=== PATIENT | female | born 1955 | race Caucasian/White ===

== ENCOUNTER 2017-01-31 11:15 | Inpatient (IN) ==
[2017-01-31 11:54] LABS: Mean Corpuscular Hemoglobin 27.8 pg (28.0-33.3); Mean Corpuscular Volume 85.2 fL (83.0-100.0); Red Cell Distribution Width 14.6 % (11.5-14.5)
[2017-01-31 11:58] LABS: Basophils % 1.1 %; Eosinophils % 2.2 %; Hematocrit 36.8 % (35.3-44.9); Immature Platelets 7.6 % (1.1-6.1); Lymphocytes # 0.5 K/mcL (0.6-4.6); Lymphocytes % 26.2 %; Mean Corpuscular HGB Conc 32.6 g/dL (31.6-35.5); Mean Platelet Volume 11.1 fL (9.4-12.4); Monocytes # 0.2 K/mcL (0.0-1.3); Monocytes % 8.7 %; Neutrophils # 1.1 K/mcL (1.6-8.9); Red Blood Count 4.32 M/mcL (3.82-4.97); Segmented Neutrophils % 61.8 %
--- NOTE | 2017-01-31 11:59 | Emergency Department Note ---
Disposition Clinical Impression: Stable angina Disposition: Admitted As Inpatient Chest Pain HPI - General Chief Complaint: ED Chest Pain Stated Complaint: chest tightness / pain JANEY Time Seen by Provider: 01/31/17 11:20 Source: patient Limitations: no limitations Vital Signs Reviewed: Yes Nursing Notes Reviewed: Yes - History of Present Illness Pt complaint: chest pain Onset (ago): day(s) (1) Duration: intermittent Onset: during rest Pain Location: substernal Severity scale (1-10): 7 Quality: heaviness Pain Radiation: none Improves with: nitroglycerin Worsens with: nothing Associated symptoms: Reports: leg swelling. Denies: nausea, vomiting, diaphoresis, dyspnea Treatments prior to arrival chest pain: nitroglycerin - Related Data Home Medications Medication Instructions Recorded Confirmed Amitriptyline [Elavil] 10 mg PO HS 12/31/15 01/31/17 Furosemide [Lasix] 20 mg PO DAILY PRN 12/31/15 01/31/17 LORazepam [Ativan] 0.5 mg PO DAILY PRN 12/31/15 01/31/17 Lactulose 30 ml PO DAILY PRN 12/31/15 01/31/17 Lisinopril-HCTZ 20-12.5 [Prinzide 0.5 tab PO BID 12/31/15 01/31/17 20-12.5] Loratadine [Claritin] 10 mg PO DAILY 12/31/15 01/31/17 Metformin [Glucophage] 1,000 mg PO BIDWM 12/31/15 01/31/17 Metoprolol [Lopressor] 12.5 mg PO BID 12/31/15 01/31/17 Nitroglycerin [Nitrostat] 0.4 mg SL AD PRN 12/31/15 01/31/17 Omeprazole [PriLOSEC] 40 mg PO DAILY 12/31/15 01/31/17 Ranitidine HCl [Zantac] 150 mg PO HS 12/31/15 01/31/17 TraMADol [Ultram] 50 mg PO Q6HR PRN 12/31/15 01/31/17 Rosuvastatin Calcium [Crestor] 20 mg PO DAILY 09/11/16 01/31/17 Albuterol Sulfate [Ventolin Hfa] 2 puff IH Q4H PRN 01/31/17 01/31/17 Aspirin 81 mg PO DAILY 01/31/17 01/31/17 Fluticasone Propionate Nasal 1 spray NS DAILY 01/31/17 01/31/17 [Flonase] Fluticasone/Vilanterol [Breo 1 puff IH DAILY 01/31/17 01/31/17 Ellipta 100-25 Mcg INH] Gabapentin [Neurontin] 100 mg PO BID 01/31/17 01/31/17 Insulin ASPART [Novolog] 0 unit SQ DAILY MDD PER INSULIN 01/31/17 01/31/17 PUMP Ipratropium/Albuterol Neb [Duoneb] 3 ml IH Q6HR 01/31/17 01/31/17 Meclizine HCl [Verticalm] 25 mg PO DAILY PRN 01/31/17 01/31/17 Melatonin 9 mg PO HS 01/31/17 01/31/17 Multivitamin [One Daily Essential] 1 tab PO DAILY 01/31/17 01/31/17 Ranolazine [Ranexa] 500 mg PO BID 01/31/17 01/31/17 Previous Rx's Medication Instructions Recorded Isosorbide MONOnitrate (24 HR) 60 mg PO DAILY #30 tab.er.24h 09/12/16 [Imdur] Allergies Allergy/AdvReac Type Severity Reaction Status Date / Time atorvastatin [From Lipitor] Allergy Muscle Pain Verified 09/11/16 12:22 Hydroxychloroquine Allergy Hives Verified 09/11/16 12:22 [From Plaquenil] escitalopram [From Lexapro] AdvReac See Verified 09/11/16 12:22 Comments All systems ED: reviewed and negative except as stated. Constitutional: Denies: fever, chills, weakness Respiratory: Denies: dyspnea, wheezes Gastrointestinal: Denies: nausea, vomiting Chest Pain PMH - Past Medical History Medical history: Reports: coronary artery disease, diabetes, fibromyalgia, GERD , hyperlipidemia, hypertension, liver disease, myocardial infarction, other Surgical history: Reports: hysterectomy, other Psychiatric history: Reports: anxiety - Social History Smoking Status: Never smoker Alcohol use: Reports: none Drug use: Reports: none Physical Exam - General Limitations: no limitations General appearance: alert - Head Head exam: atraumatic, normocephalic, normal inspection - Eye Eye exam: Present: normal appearance, PERRL, EOMI - Expanded Eye Exam Pupils: Left: reactive - ENT ENT exam: normal exam, normal oropharynx, mucous membranes moist - Expanded ENT Exam External ear exam: Present: normal external inspection Mouth exam: Present: normal external inspection Teeth exam: Present: normal inspection Throat exam: Present: normal inspection - Neck Neck exam: Present: normal inspection, full ROM, trachea midline - Chest Chest inspection: Present: normal inspection, symmetric chest wall rise - Respiratory Respiratory exam: Present: normal lung sounds bilaterally - Cardiovascular Cardiovascular exam: Present: regular rate, normal rhythm, normal heart sounds - Abdominal Exam Abdominal exam: Present: soft, Non-Tender. Absent: tenderness, distention, guarding, rebound, rigidity - Extremities Exam Extremities exam: Present: normal inspection, full ROM. Absent: tenderness, pedal edema - Expanded Upper Extremity Exam Shoulder exam: Present: normal inspection, full ROM Arm exam: Present: normal inspection, full ROM Elbow exam: Present: normal inspection, full ROM Forearm/Wrist exam: Present: normal inspection, full ROM Hand exam: Present: normal inspection, full ROM Vascular exam: Normal: capillary refill, radial pulse - Expanded Lower Extremity Exam Hip/Pelvis exam: Present: normal inspection, full ROM Upper leg exam: Present: normal inspection, full ROM Knee exam: Present: normal inspection, full ROM Lower leg exam: Present: normal inspection, full ROM Ankle exam: Present: normal inspection, full ROM Foot/toe exam: Present: normal inspection, full ROM Neurovascular/Tendon exam: Absent: motor deficit, sensory deficit, tendon deficit - Back Exam Back exam: Present: normal inspection, full ROM. Absent: tenderness - Neurological Exam Neurological exam: Present: alert, oriented X3 - Expanded Neurological Exam Patient oriented to: Present: person, place, time Coma Scale Eye Opening: Spontaneous Coma Scale Motor Response: Obeys Commands Coma Scale Verbal Response: Oriented Coma Scale Total: 15 - Psychiatric Psychiatric exam: Present: normal affect, normal mood - Skin Skin exam: Present: warm, dry, intact, normal color Course Vital Signs Temperature 98.1 F 01/31/17 11:20 Pulse Rate 85 01/31/17 11:20 Respiratory Rate 18 01/31/17 11:20 Blood Pressure 152/71 01/31/17 11:20 O2 Sat by Pulse Oximetry 97 01/31/17 11:20 Temperature 97.9 F 01/31/17 16:27 Pulse Rate 86 01/31/17 16:27 Respiratory Rate 16 01/31/17 16:27 Blood Pressure 126/79 01/31/17 16:27 O2 Sat by Pulse Oximetry 96 01/31/17 16:27 Chest Pain - Differential Diagnosis Likely: pneumothorax, unstable angina pectoris, atypical chest pain, st elevation myocardial infraction, chest pain - Medical Records Medical records reviewed: Yes I reviewed the patient's medical records. - Lab Data Result diagrams: 01/31/17 11:37 01/31/17 11:37 Lab Results 01/31/17 01/31/17 01/31/17 Range/Units 11:37 11:37 11:37 WBC 1.8 L (4.3-11.1) K/mcL RBC 4.32 (3.82-4.97) M/mcL Hgb 12.0 (11.5-15.4) g/dL Hct 36.8 (35.3-44.9) % MCV 85.2 (83.0-100.0) fL MCH 27.8 L (28.0-33.3) pg MCHC 32.6 (31.6-35.5) g/dL RDW 14.6 H (11.5-14.5) % Plt Count 47 L (140-400) K/mcL MPV 11.1 (9.4-12.4) fL Immature Gran % 0.0 (0-4) % Seg Neutrophils % 61.8 % Lymphocytes % 26.2 % Monocytes % 8.7 % Eosinophils % 2.2 % Basophils % 1.1 % Neutrophils # 1.1 L (1.6-8.9) K/mcL Lymphocytes # 0.5 L (0.6-4.6) K/mcL Monocytes # 0.2 (0.0-1.3) K/mcL Eosinophils # 0.0 (0.0-0.6) K/mcL Basophils # 0.0 (0.0-0.2) K/mcL Platelet Estimate Decreased L (Normal) Immature Plt Fraction 7.6 H (1.1-6.1) % Polychromasia 1+ A (Not Present) PT 13.3 H (9.4-12.1) Seconds INR 1.2 APTT 33.2 (26.0-36.0) Seconds Sodium 139 (136-145) mEq/L Potassium 4.0 (3.5-4.5) mEq/L Chloride 106 (98-109) mEq/L Carbon Dioxide 25 (19-29) mEq/L BUN 15 (7-20) mg/dL Creatinine 0.74 (0.57-1.11) mg/dL Est GFR ( Amer) > 60 (> 60) Est GFR (Non-Af Amer) > 60 (> 60) BUN/Creatinine Ratio 20 (6-26) Glucose 198 H (70-99) mg/dL Calculated Osmolality 294 (280-300) Calcium 9.0 (8.6-10.8) mg/dL Total Bilirubin 1.0 (0.2-1.2) mg/dL Direct Bilirubin 0.4 (0.0-0.5) mg/dL Indirect Bilirubin 0.6 (0.0-1.2) mg/dL AST 32 (5-34) Units/L ALT 23 (0-55) Units/L Alkaline Phosphatase 108 (38-126) Units/L Troponin I (0-0.03) ng/mL Serum Total Protein 6.5 (6.0-8.3) g/dL Albumin 3.1 L (3.5-5.0) g/dL Globulin 3.4 (2.4-3.5) g/dL Albumin/Globulin Ratio 0.9 L (1.1-2.2) Lipase 45 (8-78) Units/L 04/24/17 Range/Units 11:37 WBC (4.3-11.1) K/mcL RBC (3.82-4.97) M/mcL Hgb (11.5-15.4) g/dL Hct (35.3-44.9) % MCV (83.0-100.0) fL MCH (28.0-33.3) pg MCHC (31.6-35.5) g/dL RDW (11.5-14.5) % Plt Count (140-400) K/mcL MPV (9.4-12.4) fL Immature Gran % (0-4) % Seg Neutrophils % % Lymphocytes % % Monocytes % % Eosinophils % % Basophils % % Neutrophils # (1.6-8.9) K/mcL Lymphocytes # (0.6-4.6) K/mcL Monocytes # (0.0-1.3) K/mcL Eosinophils # (0.0-0.6) K/mcL Basophils # (0.0-0.2) K/mcL Platelet Estimate (Normal) Immature Plt Fraction (1.1-6.1) % Polychromasia (Not Present) PT (9.4-12.1) Seconds INR APTT (26.0-36.0) Seconds Sodium (136-145) mEq/L Potassium (3.5-4.5) mEq/L Chloride (98-109) mEq/L Carbon Dioxide (19-29) mEq/L BUN (7-20) mg/dL Creatinine (0.57-1.11) mg/dL Est GFR ( Amer) (> 60) Est GFR (Non-Af Amer) (> 60) BUN/Creatinine Ratio (6-26) Glucose (70-99) mg/dL Calculated Osmolality (280-300) Calcium (8.6-10.8) mg/dL Total Bilirubin (0.2-1.2) mg/dL Direct Bilirubin (0.0-0.5) mg/dL Indirect Bilirubin (0.0-1.2) mg/dL AST (5-34) Units/L ALT (0-55) Units/L Alkaline Phosphatase (38-126) Units/L Troponin I 0.00 (0-0.03) ng/mL Serum Total Protein (6.0-8.3) g/dL Albumin (3.5-5.0) g/dL Globulin (2.4-3.5) g/dL Albumin/Globulin Ratio (1.1-2.2) Lipase (8-78) Units/L
[2017-01-31 12:00] LABS: Platelet Count 47 K/mcL (140-400)
[2017-01-31 12:05] LABS: INR 1.2; Prothrombin Time 13.3 Seconds (9.4-12.1)
[2017-01-31 12:08] LABS: Activated Partial Thrombo Time 33.2 Seconds (26.0-36.0)
[2017-01-31 12:11] LABS: Alanine Aminotransferase 23 Units/L (0-55); Albumin 3.1 g/dL (3.5-5.0); Albumin/Globulin Ratio 0.9 (1.1-2.2); Alkaline Phosphatase 108 Units/L (38-126); Aspartate Amino Transferase 32 Units/L (5-34); BUN/Creatinine Ratio 20 (6-26); Bilirubin,Direct 0.4 mg/dL (0.0-0.5); Bilirubin,Indirect 0.6 mg/dL (0.0-1.2); Blood Urea Nitrogen 15 mg/dL (7-20); Carbon Dioxide 25 mEq/L (19-29); Chloride 106 mEq/L (98-109); Globulin 3.4 g/dL (2.4-3.5); Glucose 198 mg/dL (70-99); Lipase 45 Units/L (8-78); Osmolality,Calculated 294 (280-300); Sodium 139 mEq/L (136-145); Total Protein 6.5 g/dL (6.0-8.3); eGFR For African Americans > 60 (> 60); eGFR For Non-African Americans > 60 (> 60)
[2017-01-31 12:22] LABS: Platelet Estimate Decreased (Normal)
[2017-01-31 12:23] LABS: Polychromasia 1+ (Not Present)
[2017-01-31] MEDS ORDERED: Aspirin 81 MG TAB.CHEW PO STA (12:49)
[2017-01-31] MEDS ORDERED: Naloxone 0.4 MG/ML INJ IVP PRN (14:02)
[2017-01-31] MEDS ORDERED: Nitroglycerin 0.4 MG TAB.SUBL SL PRN (14:38)
--- NOTE | 2017-01-31 14:58 | Internal Med History&Physical ---
Date of Encounter: 01/31/17 Time of Encounter: 13:30 Assessment and Plan (1) Stable angina Current visit: Yes Status: Acute 1 patient is experiencing intermittent chest pain relieved with nitroglycerin. Has past history of CAD with stent placement. For secondary troponins are negative we will continue cycle 2 we will obtain cardiac echo 3 continues cardiac monitoring 4 continue with aspirin beta erwin statin 5 nitroglycerin oxygen as needed 6 we will consult cardiology (2) SIMON (nonalcoholic steatohepatitis) Current visit: Yes Status: Chronic 1 patient has been experiencing increase in weight, abdominal distention as well as edema. Presently liver enzymes are stable patient has chronic neutropenia and thrombocytopenia INR 1.2-noted slight fluid wave on assessment we will monitor intake output daily weight 2 we will obtain liver ultrasound 3 obtain ammonia level 4 continue with Lasix will increase Lasix to 40 mg 5 patient has been experiencing some black stools will obtain stool for occult (3) Neutropenia Current visit: No Status: Chronic 1 this appears to be chronic will continue to monitor signs and symptoms of infection Qualifiers: Neutropenia type: unspecified Qualified Code(s): D70.9 - Neutropenia, unspecified (4) Thrombocytopenia Current visit: No Status: Chronic 1 this appears to be chronic will monitor for signs and symptoms of bleeding-no anticoagulation (5) T2DM (type 2 diabetes mellitus) Current visit: No Status: Chronic 1 Accu-Cheks before meals and at bedtime patient is on insulin pump will continue 2 diabetic diet Qualifiers: Diabetes mellitus complication status: without complication 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 Qualified Code(s): E11.9 - Type 2 diabetes mellitus without complications; Z79.4 - shelter (current) use of insulin (6) Hypertension Current visit: No Status: Chronic 1 presently controlled we will continue with home medications and also maintain systolic less than 140 Qualifiers: Hypertension type: essential hypertension Qualified Code(s): I10 - Essential (primary) hypertension (7) Obstructive sleep apnea Current visit: Yes Status: Chronic 1 continue with CPAP (8) DVT prophylaxis Current visit: Yes Status: Chronic 1 SCDs Internal Medicine - H&P: HPI Chief complaint: CP Admitted From: Emergency Dept Plans for Post Hospital Care: Home History of present illness: Ms. Morgan is a 61 year old female past uncle history of coronary artery disease with stent placed LAD 2012 diabetes on insulin pump fibro-myalgia GERD hypertensionobstructive sleep apnea, asthma SIMON esophageal varices. According to the patient partially 3 days ago she was awakened from sleep experiencing palpitations shortness of breath palpitations resolved on their own however she continued to experience intermittent chest pain over the next 3 days. Chest pain is described as dull nonradiating there are no aggravating factors and some relief with nitroglycerin. Associated symptoms include shortness of breath as well as nausea This a.m. patient awoke began to experience chest pain she did take a nitroglycerin which did relieve her pain however she continues to experience chest heaviness she reported to the ER for evaluation. ER records lab work revealed troponin of 0 leukopenia as well as thrombocytopenia rest of lab work is unremarkable. Chest x-ray revealed low lung volumes EKG with sinus rhythm nonspecific T-wave changes. She is admitted for further workup and evaluation. Presently patient denies any chest pain she does not appear to be any respiratory distress. She does admit to some weight gain particular her abdomen as well as shortness of breath,fatigue. Upon assessment abdomen is soft distended slight fluid wave, +1 edema to lower extremities bilaterally. Patient also admitted to occasional black stool no hematemesis or hematochezia. Heart sounds with S1-S2 no murmur or clicks gallops noted lungs sounds clear she is hemodynamically stable at this time review this case with Dr. Garcia who agrees with plan. Past Med Surg Social Fam HX - Past Medical History Medical history: coronary artery disease, diabetes, fibromyalgia, GERD, hyperlipidemia, hypertension, liver disease, myocardial infarction, other Psychiatric history: anxiety - Past Surgical History Surgical History: hysterectomy, other - Social History Smoking Status: Never smoker Smokeless Tobacco Status: No Alcohol use: none Drug use: none - Family History Mother Living Status: Hx Family Cardiac Disorders: Yes (CAD) Hx Family Respiratory Disorders: Yes (Interstitial lining disease) Father Living Status: Hx Family Cardiac Disorders: Yes (IA) Internal Medicine - H&P: Meds Amitriptyline [Elavil] 10 mg PO HS 12/31/15 [History] Furosemide [Lasix] 20 mg PO DAILY PRN 12/31/15 [History] LORazepam [Ativan] 0.5 mg PO DAILY PRN 12/31/15 [History] Lactulose 30 ml PO DAILY PRN 12/31/15 [History] Lisinopril-HCTZ 20-12.5 [Prinzide 20-12.5] 0.5 tab PO BID 12/31/15 [History] Loratadine [Claritin] 10 mg PO DAILY 12/31/15 [History] Metformin [Glucophage] 1,000 mg PO BIDWM 12/31/15 [History] Metoprolol [Lopressor] 12.5 mg PO BID 12/31/15 [History] Nitroglycerin [Nitrostat] 0.4 mg SL AD PRN 12/31/15 [History] Omeprazole [PriLOSEC] 40 mg PO DAILY 12/31/15 [History] Ranitidine HCl [Zantac] 150 mg PO HS 12/31/15 [History] TraMADol [Ultram] 50 mg PO Q6HR PRN 12/31/15 [History] Rosuvastatin Calcium [Crestor] 20 mg PO DAILY 09/11/16 [History] Isosorbide MONOnitrate (24 HR) [Imdur] 60 mg PO DAILY #30 tab.er.24h 09/12/16 [ Rx] Albuterol Sulfate [Ventolin Hfa] 2 puff IH Q4H PRN 01/31/17 [History] Aspirin 81 mg PO DAILY 01/31/17 [History] Fluticasone Propionate Nasal [Flonase] 1 spray NS DAILY 01/31/17 [History] Fluticasone/Vilanterol [Breo Ellipta 100-25 Mcg INH] 1 puff IH DAILY 01/31/17 [ History] Gabapentin [Neurontin] 100 mg PO BID 01/31/17 [History] Insulin ASPART [Novolog] 0 unit SQ DAILY MDD PER INSULIN PUMP 01/31/17 [History] Ipratropium/Albuterol Neb [Duoneb] 3 ml IH Q6HR 01/31/17 [History] Meclizine HCl [Verticalm] 25 mg PO DAILY PRN 01/31/17 [History] Melatonin 9 mg PO HS 01/31/17 [History] Multivitamin [One Daily Essential] 1 tab PO DAILY 01/31/17 [History] Ranolazine [Ranexa] 500 mg PO BID 01/31/17 [History] Allergies atorvastatin [From Lipitor] Allergy (Verified 09/11/16 12:22) Muscle Pain Hydroxychloroquine [From Plaquenil] Allergy (Verified 09/11/16 12:22) Hives escitalopram [From Lexapro] Adverse Reaction (Verified 09/11/16 12:22) See Comments Patient states it didn't work. All Systems PM: A 10-system review of systems was performed and is negative for pertinent findings except as documented above in the HPI. - Constitutional Constitutional: fatigue, weight gain - Cardiovascular Cardiovascular ROS IM: chest pain, dyspnea, edema, palpitations - Respiratory Respiratory: dyspnea - Gastrointestinal Gastrointestinal: bloating, change in bowel habits, melena, nausea - Genitourinary Genitourinary: dysuria - Neurological Neurological ROS: no confusion, no convulsions, no focal weakness, no numbness, no tingling, no tremor(s) - Constitutional Vitals: Temp Pulse Resp BP Pulse Ox 98.1 F 68 18 158/83 96 01/31/17 11:20 01/31/17 14:13 01/31/17 14:13 01/31/17 14:13 01/31/17 14:13 General appearance: Present: A&O X 3, morbidly obese, answers questions appropriately - Head Head exam: Present: atraumatic, normocephalic - Eye Eye exam: Present: PERRL, conjuntiva pink, sclera anicteric Pupils: Present: PERRL - Neck Neck exam general surgery: Present: supple, trachea midline. Absent: lymphadenopathy - Respiratory Respiratory exam: Present: CTAB. Absent: accessory muscle use, rales, rhonchi, wheezes - Cardiovascular Cardiovascular exam: Present: RRR, +S1, +S2. Absent: diastolic murmur, gallop, rubs, systolic murmur - GI/Abdominal GI/Abdominal exam: Present: distended, normal bowel sounds, soft, no peritoneal signs. Absent: tenderness - Extremities Exam Extremities exam: Present: pedal edema, warm, radial pulses palpable and symetrical. Absent: calf tenderness, cyanotic - Neurological Exam Neurological exam: Present: CN II-XII intact, oriented X3, no focal deficits. Absent: pronater drift, facial droop, speech deficit - Skin Skin exam: Present: dry, intact Internal Med - H&P Results - Labs CBC & Chem 7: 01/31/17 11:37 01/31/17 11:37 Labs: Short CBC 01/31/17 Range/Units 11:37 WBC 1.8 L (4.3-11.1) K/mcL Hgb 12.0 (11.5-15.4) g/dL Hct 36.8 (35.3-44.9) % Plt Count 47 L (140-400) K/mcL Neutrophils # 1.1 L (1.6-8.9) K/mcL BMP 01/31/17 11:37 Sodium 139 Potassium 4.0 Chloride 106 Carbon Dioxide 25 BUN 15 Creatinine 0.74 Glucose 198 H Calcium 9.0 Cardiac Enzymes 01/31/17 Range/Units 11:37 Troponin I 0.00 (0-0.03) ng/mL Liver Function 01/31/17 Range/Units 11:37 Total Bilirubin 1.0 (0.2-1.2) mg/dL Direct Bilirubin 0.4 (0.0-0.5) mg/dL AST 32 (5-34) Units/L ALT 23 (0-55) Units/L Alkaline Phosphatase 108 (38-126) Units/L Albumin 3.1 L (3.5-5.0) g/dL - EKG Data EKG shows normal: sinus rhythm - EKG Data Prior EKG available for review: yes When compared to previous EKG: there is no significant change - Impressions ITS Impressions Chest X-Ray 01/31/17 11:26 IMPRESSION: 1. Low lung volumes. D/ / Sukumar Maza MD / Sukumar Maza MD Interpreting Provider: Sukumar Maza MD - Diagnostic Studies Other Images Additional comments: Chest X-Ray 01/31/17 11:26 IMPRESSION: 1. Low lung volumes. D/ / Sukumar Maza MD / Sukumar Maaz MD Interpreting Provider: Sukumar Maza MD
--- NOTE | 2017-01-31 14:59 | Event Note ---
Date of Encounter: 01/31/17 Time of Encounter: 14:54 Patient seen and examined with nurse practitioner. Agree with assessment and plan. Patient with known history of coronary artery disease last in March 2016 showed instent restenosis about 30 to 40% except for the PDA stent which showed significant instent restenosis but was a small vessel so was managed conservatively. She presents today with chest pain. EKG shows no ischemic changes. initial troponin normal. check serial cardiac markers. Patient also has a history of Connel[place]. She has leukopenia and thrombocytopenia platelets in the 40,000 range. Continual antischemic medications. Cardiology consultation. Continuous telemetry monitoring. She notices abdominal dissension, shortness of breath. Suspect she may have some ascites contributing to her weight gain and shortness of breath. Lasix will be increased from 20 mg to 40 mg daily. Abdominal ultrasound will be checked. Notices that she is more tired and lethargic. Ammonia level will be checked. No evidence of infectious etiology. She is full code.
[2017-01-31] MEDS ORDERED: *HR* Dextrose 50 % in Water (Syg) 50 ML SYRINGE IVP PRN (15:15)
[2017-01-31] MEDS ORDERED: D5% in Water 1,000 ML IVC PRN (15:15)
[2017-01-31] MEDS ORDERED: Dextrose Gel 15 GM PO PRN ×2 (15:15)
[2017-01-31] MEDS ORDERED: *HR* Metformin 500 MG TABLET PO SCH (17:00)
[2017-01-31] MEDS ORDERED: Ipratropium/Albuterol Neb 3 ML IH SCH (18:00)
[2017-01-31] MEDS: Ipratropium/Albuterol Neb 3 ML IH SCH ×2 (18:26→22:12)
[2017-01-31] MEDS ORDERED: NON-FORMULARY MEDICATION 1 EACH EACH (Ranitidine Hcl [Zantac] 150 MG) PO SCH (21:00)
[2017-01-31] MEDS: Gabapentin 100 MG CAPSULE PO SCH (22:37)
[2017-01-31] MEDS: Melatonin 3 MG TABLET PO SCH (22:38)
[2017-01-31] MEDS: Lisinopril-HCTZ 20-12.5mg TABLET PO SCH (22:38)
[2017-01-31] MEDS: Ranolazine 500 MG TAB.ER.12H PO SCH (22:40)
[2017-01-31] MEDS: traMADol 50 MG TABLET PO PRN (22:40)
[2017-02-01] MEDS: Insulin LISPRO 300 UNITS/3 ML VIAL SQ SCH ×4 (00:53→17:42)
[2017-02-01] MEDS ORDERED: Lactulose Oral Soln 20 GM/30 ML UDC PO PRN (01:39)
[2017-02-01 02:02] LABS: Basophils % 0.6 %; Red Cell Distribution Width 14.8 % (11.5-14.5)
[2017-02-01 02:04] LABS: Eosinophils % 1.2 %; Hematocrit 31.5 % (35.3-44.9); Hemoglobin 10.2 g/dL (11.5-15.4); Lymphocytes % 26.5 %; Mean Corpuscular HGB Conc 32.4 g/dL (31.6-35.5); Mean Corpuscular Hemoglobin 27.9 pg (28.0-33.3); Mean Corpuscular Volume 86.3 fL (83.0-100.0); Mean Platelet Volume 11.6 fL (9.4-12.4); Monocytes # 0.1 K/mcL (0.0-1.3); Monocytes % 8.4 %; Neutrophils # 1.1 K/mcL (1.6-8.9); Red Blood Count 3.65 M/mcL (3.82-4.97); Segmented Neutrophils % 63.3 %
[2017-02-01 02:23] LABS: BUN/Creatinine Ratio 20 (6-26); Blood Urea Nitrogen 15 mg/dL (7-20); Calcium 8.7 mg/dL (8.6-10.8); Carbon Dioxide 25 mEq/L (19-29); Chloride 103 mEq/L (98-109); Cholesterol 125 mg/dL (< 200); Glucose 292 mg/dL (70-99); HDL Cholesterol 42 mg/dL (40-59); LDL Cholesterol,Calculated 52 mg/dL (0-99); Osmolality,Calculated 294 (280-300); Potassium 3.6 mEq/L (3.5-4.5); Sodium 136 mEq/L (136-145); Triglycerides 155 mg/dL (< 150); eGFR For African Americans > 60 (> 60); eGFR For Non-African Americans > 60 (> 60)
[2017-02-01 02:37] LABS: Lymphocytes # 0.5 K/mcL (0.6-4.6); Platelet Count 41 K/mcL (140-400)
[2017-02-01 02:39] LABS: Platelet Estimate Decreased (Normal)
[2017-02-01] MEDS ORDERED: Ondansetron 4 MG/2 ML VIAL IVP ONE (03:48)
[2017-02-01] MEDS: Ipratropium/Albuterol Neb 3 ML IH SCH ×4 (04:28→21:41)
--- NOTE | 2017-02-01 08:35 | Cardiology Consult Note ---
Date of Encounter: 02/01/17 Time of Encounter: 08:20 Assessment and Plan (1) Chest pain Current Visit: No Status: Acute Troponins negative 3. EKG shows normal sinus rhythm with no acute ST changes. [facility] 03/31/2016-EF 50%, severe small vessel disease. There was a 40% in-stent restenosis in the mid LAD, 30% stenosis in the proximal circumflex artery, 30% stenosis in the mid RCA, and 80% stenosis in the PDA (small vessel.) TTE 03/24/2016-EF 65%, moderate diastolic dysfunction, and no significant valvular disease. TTE 09/2016- EF 65%, Mild LVH, No significant valvular disease. Repeat echo pending. Recommend pharmacologic stress test for further evaluation. Titrate anti- anginal medication. Continue asa, statin, bb, and imdur and Ranexa. Patient noted to have thrombocytopenia. Plt 40,000 range but stable. Continue asa. Qualifiers: Chest pain type: unspecified Qualified Code(s): R07.9 - Chest pain, unspecified (2) CAD (coronary artery disease) Current Visit: No Status: Chronic See plan above. Qualifiers: Coronary Disease-Associated Artery/Lesion type: [place] artery [place] vs. transplanted heart: [place] heart Associated angina: with stable angina Qualified Code(s): I25.118 - Atherosclerotic heart disease of [place] coronary artery with other forms of angina pectoris Discussion w patient/family: The assessment and plan as outlined above was discussed with the patient and/or family members who expressed understanding and agreement. All questions were answered. Thank you for involving us in the care of your patient. Please call with any questions. History of Present Illness Consult date: 02/01/17 Requesting physician: Alejandro Garcia Consult reason: Chest pain Chief complaint: Chest pain, palpitations, and SOB History of present illness: Ms. Morgan is a 61 year old female with a history of CAD status post previous PCI in 2013, known severe small vessel disease, and SIMON with bicytopenia, hypertension, hyperlipidemia, and diabetes type 2 who presents with chest pain. She complains of chest pain starting day night that occured with activity. The next day she experienced frequent palpitations followed by chest pain requiring NTG. She continued to have intermittent chest pain with exertion associated with nausea and SOB. She reports not taking NTG since last year. Cardiac workup includes chest x-ray showing no acute disease, troponins negative 2, and EKG shows no acute changes. Cardiology consult for further evaluation. Recent cardiac testing: [facility] 03/31/2016-EF 50%, severe small vessel disease. There was a 40% in-stent restenosis in the mid LAD, 30% stenosis in the proximal circumflex artery, 30% stenosis in the mid RCA, and 80% stenosis in the PDA (small vessel.) TTE 03/24/2016-EF 65%, moderate diastolic dysfunction, and no significant valvular disease. TTE 09/2016- EF 65%, mild LVH, no significant valvular disease. Past Med Surg Social Fam HX - Past Medical History Medical history: coronary artery disease, diabetes, fibromyalgia, GERD, hyperlipidemia, hypertension, liver disease, myocardial infarction, other Psychiatric history: anxiety - Past Surgical History Surgical History: hysterectomy, other - Social History Smoking Status: Never smoker Smokeless Tobacco Status: No Alcohol use: none Drug use: none - Family History Mother Name: Cielo Navarrete Living Status: Age at : 69 Cause of : lung disease Hx Family Cardiac Disorders: Yes (CAD) Hx Family Respiratory Disorders: Yes Father Name: Sg Brantley Living Status: Age at : 42 Cause of : PA Hx Family Cardiac Disorders: Yes Medications and Allergies Amitriptyline [Elavil] 10 mg PO HS 12/31/15 [History] Furosemide [Lasix] 20 mg PO DAILY PRN 12/31/15 [History] LORazepam [Ativan] 0.5 mg PO DAILY PRN 12/31/15 [History] Lactulose 30 ml PO DAILY PRN 12/31/15 [History] Lisinopril-HCTZ 20-12.5 [Prinzide 20-12.5] 0.5 tab PO BID 12/31/15 [History] Loratadine [Claritin] 10 mg PO DAILY 12/31/15 [History] Metformin [Glucophage] 1,000 mg PO BIDWM 12/31/15 [History] Metoprolol [Lopressor] 12.5 mg PO BID 12/31/15 [History] Nitroglycerin [Nitrostat] 0.4 mg SL AD PRN 12/31/15 [History] Omeprazole [PriLOSEC] 40 mg PO DAILY 12/31/15 [History] Ranitidine HCl [Zantac] 150 mg PO HS 12/31/15 [History] TraMADol [Ultram] 50 mg PO Q6HR PRN 12/31/15 [History] Rosuvastatin Calcium [Crestor] 20 mg PO DAILY 09/11/16 [History] Isosorbide MONOnitrate (24 HR) [Imdur] 60 mg PO DAILY #30 tab.er.24h 09/12/16 [ Rx] Albuterol Sulfate [Ventolin Hfa] 2 puff IH Q4H PRN 01/31/17 [History] Aspirin 81 mg PO DAILY 01/31/17 [History] Fluticasone Propionate Nasal [Flonase] 1 spray NS DAILY 01/31/17 [History] Fluticasone/Vilanterol [Breo Ellipta 100-25 Mcg INH] 1 puff IH DAILY 01/31/17 [ History] Gabapentin [Neurontin] 100 mg PO BID 01/31/17 [History] Insulin ASPART [Novolog] 0 unit SQ DAILY MDD PER INSULIN PUMP 01/31/17 [History] Ipratropium/Albuterol Neb [Duoneb] 3 ml IH Q6HR 01/31/17 [History] Meclizine HCl [Verticalm] 25 mg PO DAILY PRN 01/31/17 [History] Melatonin 9 mg PO HS 01/31/17 [History] Multivitamin [One Daily Essential] 1 tab PO DAILY 01/31/17 [History] Ranolazine [Ranexa] 500 mg PO BID 01/31/17 [History] Allergies atorvastatin [From Lipitor] Allergy (Verified 09/11/16 12:22) Muscle Pain Hydroxychloroquine [From Plaquenil] Allergy (Verified 09/11/16 12:22) Hives escitalopram [From Lexapro] Adverse Reaction (Verified 09/11/16 12:22) See Comments Patient states it didn't work. All Systems Review: A 10-system review of systems was performed and is negative for pertinent findings except as documented above in the HPI. Physical Examination Vital Signs, Last 4 Hours Temp Pulse Resp BP Pulse Ox 02/01/17 08:04 97.6 F 77 17 115/72 94 General: Conversant, No Apparent Distress HEENT: Atraumatic, Normocephaly, Mucus Membranes Moist Neck: No JVD, Normal carotid pulses Cardiac: Reg Rate and Rhythm, Normal S1 and S2, No Murmur Lungs: Normal Breath Sounds, No Wheeze, Rales, Rhonchi Neuro: Alert and responsive, No focal deficits noted Abdomen: Soft, Non-Tender Skin: No rashes noted on visualized skin Musculoskeletal: No Chest Wall Tenderness Extremities: No Clubbing, No Cyanosis, No Edema, Normal Pulses Results 02/01/17 00:39 02/01/17 00:39 Lab Results 01/31/17 02/01/17 02/01/17 17:06 00:39 00:39 WBC 1.7 L Hgb 10.2 L D Hct 31.5 L Plt Count 41 L Sodium Potassium Chloride Carbon Dioxide BUN Creatinine Glucose Calcium Troponin I 0.00 0.00 02/01/17 00:39 WBC Hgb Hct Plt Count Sodium 136 Potassium 3.6 Chloride 103 Carbon Dioxide 25 BUN 15 Creatinine 0.76 Glucose 292 H Calcium 8.7 Troponin I - Imaging and Cardiology Echo: pending, report reviewed Cardiac cath: report reviewed - EKG Interpretation EKG results cardiology: personally reviewed Consult Discharge Plan - Plan Referrals: Robles Oliveira MD [Primary Care Provider] -
[2017-02-01] MEDS ORDERED: INSULIN ASPART 1 UNIT SQ SCH (09:00)
[2017-02-01] MEDS: Aspirin 81 MG TAB.CHEW PO SCH (09:01)
[2017-02-01] MEDS: Isosorbide MONOnitrate (24 HR) 60 MG TAB.ER.24H PO SCH (09:01)
[2017-02-01] MEDS: (Fluticasone/Vilanterol [Breo Ellipta 100-25 Mcg Inh] IH SCH (09:01)
[2017-02-01] MEDS: Gabapentin 100 MG CAPSULE PO SCH ×2 (09:01→20:23)
[2017-02-01] MEDS: Loratadine 10 MG TABLET PO SCH (09:01)
[2017-02-01] MEDS: Furosemide 20 MG TABLET PO SCH (09:01)
[2017-02-01] MEDS: Multivit/Ca/Min/Fe/FA 1 TAB TABLET PO SCH (09:02)
[2017-02-01] MEDS: Ranolazine 500 MG TAB.ER.12H PO SCH ×2 (09:02→20:22)
[2017-02-01] MEDS: Lisinopril-HCTZ 20-12.5mg TABLET PO SCH ×2 (09:02→20:24)
--- NOTE | 2017-02-01 10:01 | ECHO - Doppler Report ---
Limited Echocardiogram Name: Odalis Morgan Date of Study: 01/31/2017 Date: 1955 Ht: 60.0 in Medical Record#: [id number] Age: 61 Wt: 200.0 lb Gender: Female BSA: 1.87 Order #: [id number] Location: [facility] Room #: 3B14 Reading Physician: Robles Moncada MD, [facility] Sole Ruffer: Jayna Castrejon RDCS Ordering Physician: Neha Vyas CNP Primary Physician: Robles Oliveira MD Indications: Chest pain Impressions: Normal LV systolic function, LVEF 60-65%. Normal right ventricular size and function. Mildly dilated left atrium. Valvular function was not assessed on this limited study. Left Ventricular Wall Motion: Rest Echo Findings All wall segments showed normal motion. Findings: Study Quality * Technically adequate exam. ECG Findings * Normal sinus rhythm. Left Ventricle * Normal LV systolic function, LVEF 60-65%. * Normal LV chamber size and wall thickness. Right Ventricle * Normal right ventricular size and function. Left Atrium * Mildly dilated left atrium. Right Atrium * Normal right atrial size. Aorta * Normally sized aortic root. Pericardium * There is no pericardial effusion present. History Hypertension Diabetes Hypercholesteremia Family History of CAD History of CAD/PTCA Myocardial Infarction 09/12/2016 a was performed. Measurements: BP: 126/ 79 2D Normal Values RVIDd: 2.72 cm IVSd: .90 cm 0.6 - 1.0 cm LVIDd: 5.20 cm 3.7 - 5.6 cm LVPWd: .90 cm 0.6 - 1.1 cm LVIDs: 3.40 cm 1.5 - 3.6 cm AO: 2.90 cm < 4.0 cm %FS: 37.00 cm >25 % LA volume: 68 Updated by Robles Moncada MD, [facility] on 02/01/2017 9:53:50 AM electronically signed on 02/01/2017 9:54:19 AM with status of Final Wall Motion [place]: 1=Normal, 2=Hypokinesis, 3=Akinesis, 4=Dyskinesis, 5=Aneurysmal, 6=Hyperkinetic, X=Not Visualized (Blank)=Missing
--- NOTE | 2017-02-01 10:44 | Internal Med Progress Note ---
Date of Encounter: 02/01/17 Time of Encounter: 08:40 - Assessment and plan (1) Chest pain Current Visit: No Status: Acute Assessment and plan: Patient reports intermittent chest pain relieved with nitroglycerin. Strong history of coronary artery disease with stent placement. She reports that she begins having shortness of breath then the chest pain starts. She describes it as substernal and left chest pain. She denies radiation until last night, when she reports radiation to her left shoulder and left elbow and she became "instantly" nauseated, no diaphoresis. She said that this began after she walked from her bed to the bathroom and back. It lasted approximately 20 minutes and she was short of breath and describes chest heaviness that remains this morning. Troponins were negative 3. EKG was normal sinus rhythm. Echocardiogram was done last night LVEF 60-65%, normal systolic function. Cardiology has recommended a pharmacologic stress test that will be done today. Continue aspirin, statin, beta erwin, Imdur, and Ranexa Fitting Room Attendant labs Monitor vital signs Cardiology on board Qualifiers: Chest pain type: unspecified Qualified Code(s): R07.9 - Chest pain, unspecified (2) SIMON (nonalcoholic steatohepatitis) Current Visit: Yes Status: Chronic Assessment and plan: Patient reports today that on 03/22/2017, she will be admitted to [facility] for biopsy of multiple cysts in her abdomen, platelet infusion, and banding of her esophageal varices. She denies change in size of her abdomen. And she denies abdominal pain. There is a slight fluid wave noted to abdomen. She says that her legs look better today. She has +1 nonpitting pedal edema bilaterally. She is wearing MADDIE hose. Abdominal ultrasound shows trace ascites right lower quadrant and trace ascites left lower and left upper quadrants. Nodular cirrhotic morphology of the liver spleen is enlarged measuring up to 20 cm. Her ammonia level was 48 and within normal limits. Liver enzymes are stable and within normal limits. Continue Lasix I and O Monitor labs Monitor VS (3) Hyperlipidemia Current Visit: No Status: Chronic Assessment and plan: Chronic. Continue home medications. Qualifiers: Hyperlipidemia type: unspecified Qualified Code(s): E78.5 - Hyperlipidemia , unspecified (4) Neutropenia Current Visit: No Status: Chronic Assessment and plan: Chronic. Continue to monitor. Qualifiers: Neutropenia type: unspecified Qualified Code(s): D70.9 - Neutropenia, unspecified (5) Thrombocytopenia Current Visit: No Status: Chronic Assessment and plan: Chronic. Continue to monitor. Pt is going to have Plt transfusion in March at [facility]. (6) Obesity (BMI 30-39.9) Current Visit: No Status: Acute Assessment and plan: Chronic. Lifestyle changes. (7) CAD (coronary artery disease) Current Visit: No Status: Chronic Assessment and plan: Pt has had an Echo and stress is pending Continue ASA, Statin, BB, Imdur, and Ranexa Fitting Room Attendant labs Monitor VS Cardiology on board. Qualifiers: Coronary Disease-Associated Artery/Lesion type: [place] artery [place] vs. transplanted heart: [place] heart Associated angina: with stable angina Qualified Code(s): I25.118 - Atherosclerotic heart disease of [place] coronary artery with other forms of angina pectoris (8) T2DM (type 2 diabetes mellitus) Current Visit: No Status: Chronic Assessment and plan: A1c 11.8 in August,. Repeat ordered for a.m. Monitor pt Accucheck achs Sliding scale insulin Diabetic diet Qualifiers: Diabetes mellitus complication status: without complication Diabetes mellitus termite treater helper insulin use: with termite treater helper use Qualified Code(s): E11.9 - Type 2 diabetes mellitus without complications; Z79.4 - termite treater helper (current) use of insulin (9) Hypertension Current Visit: No Status: Chronic Assessment and plan: Chronic. Normotensive. Continue to monitor and continue home medications. Qualifiers: Hypertension type: essential hypertension Qualified Code(s): I10 - Essential (primary) hypertension (10) DVT prophylaxis Current Visit: Yes Status: Acute Assessment and plan: SCDs. - Time Spent With Patient less than 15 minutes - Subjective Interval history: Patient was seen and examined this morning at approximately 0840. Patient is sitting up in bed, alert and oriented. She reports history of shortness of breath, then chest pain. She reports that it is substernal and left chest pain. Lastly she reports radiation to her left shoulder and left elbow. Along with this radiation she was short of breath and "instantly" nauseated. She denies diaphoresis. She says that the chest pain started after she walked to her bathroom and it lasted approximately 20 minutes. She still reports shortness of breath and chest heaviness this morning. She does not appear to be in respiratory distress and speaks easily in full sentences. Patient notes that there is no change to her abdomen, it states that her legs do appear to be smaller than yesterday. She does have +1 nonpitting pedal edema. She reports that [facility] to have biopsies of the cysts in her abdomen, platelet infusion, and banding of her esophageal varices. - Constitutional Vitals: Temp Pulse Resp BP Pulse Ox 97.6 F 77 17 115/72 94 02/01/17 08:04 02/01/17 08:04 02/01/17 08:04 02/01/17 08:04 02/01/17 08:04 General appearance: Present: A&O X 3, morbidly obese, pleasant, answers questions appropriately - Head Head exam: Present: normal inspection - Eye Eye exam: Present: normal appearance, conjuntiva pink - ENT ENT exam: Present: mucous membranes moist, normal exam - Neck Neck exam general surgery: Present: normal inspection. Absent: lymphadenopathy , tenderness - Respiratory Respiratory exam: Present: CTAB. Absent: rales, respiratory distress, rhonchi, stridor, wheezes, tachypnea - Cardiovascular Cardiovascular exam: Present: RRR, +S1, +S2. Absent: bradycardia, tachycardia - Expanded Cardiovascular Exam Peripheral pulses: 1+: Dorsalis Pedis (L) PM, Dorsalis Pedis (R) PM - GI/Abdominal GI/Abdominal exam: Present: distended, normal bowel sounds, soft. Absent: hepatomegaly, tenderness - Extremities Exam Extremities exam: Present: pedal edema, warm, radial pulses palpable and symetrical. Absent: calf tenderness, mottling, tenderness - Neurological Exam Neurological exam: Present: alert, oriented X3, no focal deficits. Absent: facial droop, speech deficit Internal Medicine: Result - Labs CBC & Chem 7: 02/01/17 00:39 02/01/17 00:39 Labs: Short CBC 02/01/17 Range/Units 00:39 WBC 1.7 L (4.3-11.1) K/mcL Hgb 10.2 L D (11.5-15.4) g/dL Hct 31.5 L (35.3-44.9) % Plt Count 41 L (140-400) K/mcL Neutrophils # 1.1 L (1.6-8.9) K/mcL BMP 02/01/17 00:39 Sodium 136 Potassium 3.6 Chloride 103 Carbon Dioxide 25 BUN 15 Creatinine 0.76 Glucose 292 H Calcium 8.7 Cardiac Enzymes 01/31/17 02/01/17 Range/Units 17:06 00:39 Troponin I 0.00 0.00 (0-0.03) ng/mL - ABG Interpretation ABG results: PT/INR, D-dimer PT 13.3 Seconds (9.4-12.1) H 01/31/17 11:37 - VTE Documentation of Mechanical Device: Graduated compression elastic hosiery Consult Discharge Plan - Plan Referrals: Robles Oliveira MD [Primary Care Provider] -
[2017-02-01] MEDS ORDERED: Regadenoson 0.4 MG/5 ML SYRINGE IVP ONE (11:00)
--- NOTE | 2017-02-01 14:30 | Electrocardiograph Report ---
TiffanyInfrafone Test Date: 2017-01-31 Pat Name: Odalis Morgan Department: 105 Room: 3B14 Gender: F [employer] Director: : 1955 Requested By: Julian Holden Order Number: [id number] Reading MD: Star Becerril MD Measurements Intervals [place] Rate: 85 P: 33 MO: 142 QRS: -2 QRSD: 87 T: 43 QT: 368 QTc: 410 Interpretive Statements SINUS RHYTHM MINIMAL VOLTAGE CRITERIA FOR LVH, CONSIDER NORMAL VARIANT [MEETS CRITERIA IN ONE OF: R(aVL), S(V1), R(V5), R(V5/V6)+S(V1)] NONSPECIFIC T-WAVE ABNORMALITY Electronically Signed On 02-01-2017 14:29:02 EDT by Star Becerril MD
[2017-02-01] MEDS: Melatonin 3 MG TABLET PO SCH (20:21)
[2017-02-01] MEDS: *HR* LORazepam 0.5 MG TABLET PO PRN (20:23)
[2017-02-01] MEDS: traMADol 50 MG TABLET PO PRN (20:23)
[2017-02-02] MEDS: Insulin LISPRO 300 UNITS/3 ML VIAL SQ SCH ×6 (01:05→22:34)
[2017-02-02] MEDS: Ipratropium/Albuterol Neb 3 ML IH SCH ×4 (04:24→21:03)
[2017-02-02 05:15] LABS: Eosinophils % 2.2 %
[2017-02-02 05:17] LABS: Basophils % 1.5 %; Hematocrit 29.8 % (35.3-44.9); Hemoglobin 9.7 g/dL (11.5-15.4); Immature Granulocytes % 0.7 % (0-4); Lymphocytes # 0.4 K/mcL (0.6-4.6); Lymphocytes % 24.8 %; Mean Corpuscular HGB Conc 32.6 g/dL (31.6-35.5); Mean Corpuscular Volume 86.1 fL (83.0-100.0); Mean Platelet Volume 11.8 fL (9.4-12.4); Monocytes # 0.1 K/mcL (0.0-1.3); Monocytes % 10.2 %; Neutrophils # 0.9 K/mcL (1.6-8.9); Red Blood Count 3.46 M/mcL (3.82-4.97); Red Cell Distribution Width 14.6 % (11.5-14.5); Segmented Neutrophils % 60.6 %
[2017-02-02 05:38] LABS: BUN/Creatinine Ratio 19 (6-26); Blood Urea Nitrogen 15 mg/dL (7-20); Calcium 8.8 mg/dL (8.6-10.8); Carbon Dioxide 30 mEq/L (19-29); Chloride 104 mEq/L (98-109); Glucose 321 mg/dL (70-99); Osmolality,Calculated 301 (280-300); Potassium 4.1 mEq/L (3.5-4.5); Sodium 139 mEq/L (136-145); eGFR For African Americans > 60 (> 60); eGFR For Non-African Americans > 60 (> 60)
[2017-02-02 05:39] LABS: Platelet Count 42 K/mcL (140-400)
[2017-02-02 05:40] LABS: Platelet Estimate Marked Decrease (Normal)
[2017-02-02] MEDS: (Fluticasone/Vilanterol [Breo Ellipta 100-25 Mcg Inh] IH SCH (09:16)
[2017-02-02] MEDS: Lisinopril-HCTZ 20-12.5mg TABLET PO SCH ×2 (09:36→20:55)
[2017-02-02] MEDS: Furosemide 20 MG TABLET PO SCH (09:37)
[2017-02-02] MEDS: Aspirin 81 MG TAB.CHEW PO SCH (09:37)
[2017-02-02] MEDS: Ranolazine 500 MG TAB.ER.12H PO SCH ×2 (09:37→20:54)
[2017-02-02] MEDS: Isosorbide MONOnitrate (24 HR) 60 MG TAB.ER.24H PO SCH (09:37)
[2017-02-02] MEDS: Gabapentin 100 MG CAPSULE PO SCH ×2 (09:37→20:54)
[2017-02-02] MEDS: Multivit/Ca/Min/Fe/FA 1 TAB TABLET PO SCH (09:37)
[2017-02-02] MEDS: Loratadine 10 MG TABLET PO SCH (09:37)
--- NOTE | 2017-02-02 09:42 | Cardiology Progress Note ---
Date of Encounter: 02/02/17 Time of Encounter: 09:40 Assessment and Plan (1) Chest pain Current Visit: No Status: Acute Troponins negative 3. EKG shows normal sinus rhythm with no acute ST changes. [facility] 03/31/2016-EF 50%, severe small vessel disease. There was a 40% in-stent restenosis in the mid LAD, 30% stenosis in the proximal circumflex artery, 30% stenosis in the mid RCA, and 80% stenosis in the PDA (small vessel.) TTE 03/24/2016-EF 65%, moderate diastolic dysfunction, and no significant valvular disease. TTE 09/2016- EF 65%, Mild LVH, No significant valvular disease. Repeat echo shows normal LV function and no significant valvular disease. 2 day stress test pending. Continue asa, statin, bb, and imdur and Ranexa. Patient noted to have thrombocytopenia. Plt 40,000 range but stable. Recommend continuing with medical management unless significant abnormality on stress. Continue asa. Qualifiers: Chest pain type: unspecified Qualified Code(s): R07.9 - Chest pain, unspecified (2) CAD (coronary artery disease) Current Visit: No Status: Chronic See plan above. Qualifiers: Coronary Disease-Associated Artery/Lesion type: [place] artery [place] vs. transplanted heart: [place] heart Associated angina: with stable angina Qualified Code(s): I25.118 - Atherosclerotic heart disease of [place] coronary artery with other forms of angina pectoris Discussion w patient/family: The assessment and plan as outlined above was discussed with the patient and/or family members who expressed understanding and agreement. All questions were answered. Thank you for involving us in the care of your patient. Please call with any questions. Subjective Principal diagnosis: chest pain Interval history: Reports one episode of chest discomfort overnight briefly. Denies asking for nitroglycerin. Objective Vital Signs, Last 4 Hours Temp Pulse Resp BP Pulse Ox 02/02/17 06:51 97.5 F L 82 16 113/71 93 General: Conversant, No Apparent Distress HEENT: Atraumatic, Normocephaly, Mucus Membranes Moist Neck: No JVD, Normal carotid pulses Cardiac: Reg Rate and Rhythm, Normal S1 and S2, No Murmur Lungs: Normal Breath Sounds, No Wheeze, Rales, Rhonchi Neuro: Alert and responsive, No focal deficits noted Abdomen: Soft, Non-Tender Skin: No rashes noted on visualized skin Musculoskeletal: No Chest Wall Tenderness Extremities: No Clubbing, No Cyanosis, No Edema, Normal Pulses Results 02/02/17 04:50 02/02/17 04:50 Lab Results 02/02/17 02/02/17 04:50 04:50 WBC 1.4 L Hgb 9.7 L Hct 29.8 L Plt Count 42 L Sodium 139 Potassium 4.1 Chloride 104 Carbon Dioxide 30 H BUN 15 Creatinine 0.78 Glucose 321 H Calcium 8.8 - Imaging and Cardiology Stress Test: pending Echo: report reviewed - VTE Documentation of Mechanical Device: Graduated compression elastic hosiery Consult Discharge Plan - Plan Referrals: Robles Oliveira MD [Primary Care Provider] -
--- NOTE | 2017-02-02 10:55 | Nuclear Medicine Stress Report ---
Regadenoson Nuclear 2 day Name: Odalis Morgan Date of Study: 02/01/2017 Date: 1955 Ht: 60.0 in Medical Record#: [id number] Age: 61 Wt: 190.0 lb Gender: Female Order #: [id number] Location: [facility] Room: [facility] Supervising Provider: Freida Musa CNP Reading Physician: Kavin Workman DO, FAC, [facility] Ordering Physician: Dunia Rajan CNP Primary Care Physician: Robles Oliveira MD Stress Technologist: Pao Segovia, CAR SHAKEOUT OPERATOR,CP Shield Operator: Nigel Esteves Indications: Chest Pain, Coronary Artery Disease Impression: Pharmacologic stress ECG is negative for ischemia at level of heart rate achieved. Gated EF = 80%. Small sized, moderate intensity, primarily fixed apex and apical lateral defect. Wall motion appears normal. These findings are consistent with artifact. Perfusion imaging was negative for ischemia or infarct. Clinical correlation suggested. History: Diabetes Hypercholesteremia Prior PCI Stress Test Summary: Stress Test Type: Pharmacologic Regadenoson 0.4mg/5ml given IV Baseline Information: Initial Heart Rate: 88 Blood Pressure: 122/66 Stress Information: Test Terminated Due to (primary): As per protocol Maximum Blood Pressure: 126/68 Maximum Heart Rate: 97 Percent Maximum Heart Rate Achieved: 61 Double Product: 12,222 Symptoms: No chest symptoms Nuclear Summary: SPECT myocardial perfusion imaging using Tc99m Sestamibi given intravenously was performed at rest and following cardiac stress testing. The resting images were obtained following initial dose of 33.2 mCi. Following stress an additional dose of 35.8 mCi was given at peak exercise or 30 seconds post regadenoson infusion. Medication Given: Time Medication Dose Units Route Findings: Stress Note * Resting ECG demonstrated normal sinus rhythm. * No baseline arrhythmias were noted. * Pharmacologic stress ECG is negative for ischemia at level of heart rate achieved. * No arrhythmias were noted during stress. * Patient had no chest pain during stress. * Normal hemodynamic responses to pharmacologic stress. Study Quality * Study quality is average. Gated EF % * Gated EF = 80%. Left Ventricle * The left ventricle is not dilated. LVEDV = 108 mL. NORMALS * Normal wall motion. Apical Perfusion Rest * The apex and apical lateral segments show a moderate reduction in perfusion. Apical Perfusion Stress * The apex and apical lateral segments show a moderate reduction in perfusion. TID * No evidence of transient ischemic dilatation. TID ratio = 0.7. Lung Uptake * There is no evidence of increase lung uptake. Updated by Kavin Workman DO, FACMarquise, KYE, CONSTANTIN on 02/02/2017 10:49:11 AM electronically signed on 02/02/2017 10:50:29 AM with status of Final
--- NOTE | 2017-02-02 13:01 | Internal Med Progress Note ---
Date of Encounter: 02/02/17 Time of Encounter: 09:40 - Assessment and plan (1) Chest pain Current Visit: No Status: Acute Assessment and plan: Patient completed 2 day stress test today. It was negative for ischemia, gated in 80%. Perfusion imaging negative for ischemia or infarct. Patient denies chest pain this morning. I awakened her from sleep and at that time she denied chest pain. Cardiology recommends continued medical management, and increase Ranexa to 1000 mg twice a day and increase Imdur. Troponins were negative 3. EKG is normal sinus rhythm. Patient had echocardiogram on January 31. LVEF 60-65%, normal RV size and function, mildly dilated left atrium, and valvular function not assessed on limited study. Continue director card vital signs, patient condition Continue to monitor labs Qualifiers: Chest pain type: unspecified Qualified Code(s): R07.9 - Chest pain, unspecified (2) SIMON (nonalcoholic steatohepatitis) Current Visit: Yes Status: Chronic Assessment and plan: Abdomen is rounded and distended. It is not tender to palpation. Minimal fluid wave noted. Patient states that her abdomen looks normal. She denies abdominal pain. She sees hepatic specialist at [facility], next appointment is in March. Labs were within normal limits. Continue Lasix Lactulose home dose. I and O Monitor labs Monitor VS (3) Hyperlipidemia Current Visit: No Status: Chronic Assessment and plan: Chronic. Continue home medication. Qualifiers: Hyperlipidemia type: unspecified Qualified Code(s): E78.5 - Hyperlipidemia , unspecified (4) Neutropenia Current Visit: No Status: Chronic Assessment and plan: White count 1.4 today, Neutrophils 0.9 today. Pt sees oncology at [facility]. States that she would like to consolidate all of her services to [place]. Hematology/Oncology consult- they will see pt today. Pt on precautions. Qualifiers: Neutropenia type: unspecified Qualified Code(s): D70.9 - Neutropenia, unspecified (5) Thrombocytopenia Current Visit: No Status: Chronic Assessment and plan: Plan as above. Plt count 42,000 today (6) Obesity (BMI 30-39.9) Current Visit: No Status: Acute Assessment and plan: Chronic. Lifestyle changes. (7) CAD (coronary artery disease) Current Visit: No Status: Chronic Assessment and plan: Pt has had an Echo and stress negative for ischemia Continue ASA, Statin, BB, Imdur, and Ranexa [employer] labs Monitor VS Cardiology on board. Qualifiers: Coronary Disease-Associated Artery/Lesion type: [place] artery [place] vs. transplanted heart: [place] heart Associated angina: with stable angina Qualified Code(s): I25.118 - Atherosclerotic heart disease of [place] coronary artery with other forms of angina pectoris (8) T2DM (type 2 diabetes mellitus) Current Visit: No Status: Chronic Assessment and plan: A1c 9.0 today. Improved. Pt has insulin pump at home, does not have supplies here to restart pump after NPO status. Monitor pt Accucheck achs Sliding scale insulin Diabetic diet Qualifiers: Diabetes mellitus complication status: without complication Diabetes mellitus terminal gauger insulin use: with terminal gauger use Qualified Code(s): E11.9 - Type 2 diabetes mellitus without complications; Z79.4 - nursing home (current) use of insulin (9) Hypertension Current Visit: No Status: Chronic Assessment and plan: Chronic. Continue home medications. Well controlled in hospital Qualifiers: Hypertension type: essential hypertension Qualified Code(s): I10 - Essential (primary) hypertension (10) DVT prophylaxis Current Visit: Yes Status: Acute Assessment and plan: SCDs. - Time Spent With Patient less than 15 minutes - Subjective Interval history: I assessed the patient this morning at about 0800. He awakened her from sleep. She denied chest pain. I did see her prior to going to take 2 of her stress test. I had a discussion with her about her neutropenia and thrombocytopenia. She said she would like to see hematology oncology here as opposed to continuing to see [facility]. She said she would like to have all of her services at one place. When patient returned from her stress test, I evaluated her again. Her abdomen is rounded and distended with slight fluid wave. It is firm and nontender to palpation. She says that she has not had a bowel movement since she has been here.I added Miralax, Colace, and she already takes Lactulose. Pt is also taking Lasix for edema. Pt states that her abdomen is normal for her. - Constitutional Vitals: Temp Pulse Resp BP Pulse Ox 97.8 F 83 16 110/71 94 02/02/17 11:15 02/02/17 11:15 02/02/17 11:15 02/02/17 11:15 02/02/17 11:15 General appearance: Present: A&O X 3, morbidly obese, pleasant, no acute distress, answers questions appropriately - Head Head exam: Present: normal inspection - Eye Eye exam: Present: normal appearance, conjuntiva pink - ENT ENT exam: Present: mucous membranes moist, normal exam, normal external ear exam - Neck Neck exam general surgery: Present: normal inspection. Absent: lymphadenopathy , tenderness - Respiratory Respiratory exam: Present: decreased breath sounds, CTAB. Absent: rales, respiratory distress, rhonchi, wheezes - Cardiovascular Cardiovascular exam: Present: RRR, +S1, +S2. Absent: diastolic murmur, systolic murmur - GI/Abdominal GI/Abdominal exam: Present: distended, firm, hepatomegaly, normal bowel sounds. Absent: tenderness - Extremities Exam Extremities exam: Present: normal capillary refill, normal inspection, pedal edema, warm, radial pulses palpable and symetrical. Absent: tenderness Additional comments: +2 non-pitting, improved from yesterday. - Neurological Exam Neurological exam: Present: alert, oriented X3, no focal deficits, strengths equal and symetr throughout. Absent: facial droop, speech deficit Internal Medicine: Result - Labs CBC & Chem 7: 02/02/17 04:50 02/02/17 04:50 Labs: Short CBC 02/02/17 Range/Units 04:50 WBC 1.4 L (4.3-11.1) K/mcL Hgb 9.7 L (11.5-15.4) g/dL Hct 29.8 L (35.3-44.9) % Plt Count 42 L (140-400) K/mcL Neutrophils # 0.9 L (1.6-8.9) K/mcL BMP 02/02/17 04:50 Sodium 139 Potassium 4.1 Chloride 104 Carbon Dioxide 30 H BUN 15 Creatinine 0.78 Glucose 321 H Calcium 8.8 - ABG Interpretation ABG results: PT/INR, D-dimer PT 13.3 Seconds (9.4-12.1) H 01/31/17 11:37 - VTE Documentation of Mechanical Device: Graduated compression elastic hosiery Consult Discharge Plan - Plan Referrals: Robles Oliveira MD [Primary Care Provider] -
[2017-02-02] MEDS ORDERED: *HR* Dextrose 50 % in Water (Syg) 50 ML SYRINGE IVP PRN (17:26)
[2017-02-02] MEDS ORDERED: D5% in Water 1,000 ML IVC PRN (17:26)
[2017-02-02] MEDS ORDERED: Dextrose Gel 15 GM PO PRN ×2 (17:26)
[2017-02-02] MEDS: Melatonin 3 MG TABLET PO SCH (20:55)
[2017-02-02] MEDS ORDERED: Insulin DETEMIR 100 UNIT/ML X5UNITS SQ SCH (22:00)
[2017-02-02 22:33] LABS: Hemoglobin A1C 9.2 %
[2017-02-03] MEDS: Ipratropium/Albuterol Neb 3 ML IH SCH ×4 (03:58→22:50)
[2017-02-03 07:18] LABS: Basophils % 0.7 %; Hemoglobin 10.1 g/dL (11.5-15.4); Red Cell Distribution Width 14.7 % (11.5-14.5)
[2017-02-03 07:20] LABS: Eosinophils % 2.2 %; Immature Granulocytes % 0.7 % (0-4); Lymphocytes # 0.4 K/mcL (0.6-4.6); Lymphocytes % 27.4 %; Mean Corpuscular HGB Conc 32.6 g/dL (31.6-35.5); Mean Corpuscular Hemoglobin 28.5 pg (28.0-33.3); Mean Corpuscular Volume 87.6 fL (83.0-100.0); Monocytes # 0.1 K/mcL (0.0-1.3); Monocytes % 8.9 %; Neutrophils # 0.8 K/mcL (1.6-8.9); Red Blood Count 3.54 M/mcL (3.82-4.97); Segmented Neutrophils % 60.1 %
[2017-02-03 07:24] LABS: BUN/Creatinine Ratio 24 (6-26); Blood Urea Nitrogen 20 mg/dL (7-20); Calcium 9.2 mg/dL (8.6-10.8); Carbon Dioxide 28 mEq/L (19-29); Chloride 102 mEq/L (98-109); Glucose 329 mg/dL (70-99); Osmolality,Calculated 303 (280-300); Potassium 4.6 mEq/L (3.5-4.5); Sodium 139 mEq/L (136-145); eGFR For African Americans > 60 (> 60); eGFR For Non-African Americans > 60 (> 60)
[2017-02-03 08:12] LABS: Platelet Count 38 K/mcL (140-400)
[2017-02-03 08:13] LABS: Platelet Estimate Decreased (Normal)
[2017-02-03] MEDS: Aspirin 81 MG TAB.CHEW PO SCH (09:11)
[2017-02-03] MEDS: Gabapentin 100 MG CAPSULE PO SCH ×2 (09:11→21:23)
[2017-02-03] MEDS: Multivit/Ca/Min/Fe/FA 1 TAB TABLET PO SCH (09:11)
[2017-02-03] MEDS: Isosorbide MONOnitrate (24 HR) 30 MG TAB.ER.24H PO SCH (09:11)
[2017-02-03] MEDS: Furosemide 20 MG TABLET PO SCH (09:11)
[2017-02-03] MEDS: Ranolazine 500 MG TAB.ER.12H PO SCH ×2 (09:11→21:24)
[2017-02-03] MEDS: Insulin LISPRO 300 UNITS/3 ML VIAL SQ SCH ×5 (09:15→21:25)
[2017-02-03] MEDS: Lisinopril-HCTZ 20-12.5mg TABLET PO SCH ×2 (09:16→21:25)
[2017-02-03] MEDS: Loratadine 10 MG TABLET PO SCH (09:16)
[2017-02-03] MEDS: (Fluticasone/Vilanterol [Breo Ellipta 100-25 Mcg Inh] IH SCH (09:26)
--- NOTE | 2017-02-03 12:02 | Gastroenterology Consult Note ---
<SoriaRobles claire Marquise - Last Filed: 02/03/17 11:58> Date of Encounter: 02/03/17 Time of Encounter: 11:00 - Assessment and plan (1) Cirrhosis Current Visit: Yes Status: Acute Assessment and plan: Secondary to SIMON. MELD-Na 9, Child-Arguelles class B, DF 13.9 on admission. Patient managed by [facility]. Plan for EGD March 22, 2017 with possible banding at [facility]. Continue Lactulose. Start Rifaximin 400 mg TID while inpatient and 550 mg BID as outpatient. Qualifiers: Hepatic cirrhosis type: other cirrhosis Qualified Code(s): K74.69 - Other cirrhosis of liver (2) SIMON (nonalcoholic steatohepatitis) Current Visit: Yes Status: Chronic (3) Hepatic encephalopathy Current Visit: Yes Status: Acute (4) Anemia Current Visit: Yes Status: Acute Assessment and plan: Continue to monitor CBC and transfuse PRBC as needed. Pt with recent EGD (2016) and repeat planned for 03/22/2017 at [facility]. Qualifiers: Anemia type: unspecified type Qualified Code(s): D64.9 - Anemia, unspecified (5) Thrombocytopenia Current Visit: No Status: Chronic Assessment and plan: Secondary to cirrhosis. Will need Plts >50 for EGD. - Time Spent With Patient Total time spent is greater than 50% in coordination of care (as documented) at patient's floor/unit and/or counseling patient: GI History of Present Illness - Data of Consult Patient: new to practice Consult date: 02/03/17 Requesting Physician: Miguel Estrada MD - Consult Narrative Reason for consult: FOBT +, slight decrease in Hgb History of present illness: Ms. Morgan is a 61 year old female with PMHx of CAD, DM, fibromyalgia, GERD, HLD, HTN, SIMON, LANI, who presented to the ED with chest pain that started Tuesday night with activity. Stress test negative for ischemia. Hgb on admission 12. Pt is pancytopenic with WBC 1.4, Hgb 10.1, and Plt 38. FOBT was positive. RUQ US consistent with cirrhosis with trace ascites. She denies fever , chills, chest pain, hematemesis, or hematochezia. She reports occasional black stool about one month ago. She reports having varices banded previously. Pt had EGD completed this month at [facility], and they plan to repeat on March 22, 2017 with banding, pt to be admitted the day prior to EGD and transfused Plts. She is having 2-3 BM daily. She reports some mental confusion/"cloudy thinking" recently. Procedures: EGD January 2017 at [facility]. NSAIDs: ASA Anticoagulation: None Past Med Surg Social Fam HX - Past Medical History Medical history: coronary artery disease, diabetes, fibromyalgia, GERD, hyperlipidemia, hypertension, liver disease, myocardial infarction, other Psychiatric history: anxiety - Past Surgical History Surgical History: hysterectomy, other - Social History Smoking Status: Never smoker Smokeless Tobacco Status: No Alcohol use: none Drug use: none - Family History Mother Name: Cielo Navarrete Living Status: Age at : 69 Cause of : lung disease Hx Family Cardiac Disorders: Yes (CAD) Hx Family Respiratory Disorders: Yes Father Name: Sg Brantley Living Status: Age at : 42 Cause of : NC Hx Family Cardiac Disorders: Yes - Gastrointestinal Gastrointestinal: Present: as per HPI - Constitutional Constitutional: as per HPI - EENT Eyes: as per HPI Ears: Present: as per HPI Nose, mouth and throat: Present: as per HPI - Cardiovascular Cardiovascular ROS: Present: as per HPI - Respiratory Respiratory IM: Present: as per HPI - Genitourinary Genitourinary: Absent: change in color, Urinary frequency - Neurological ROS Neurological GI: Present: as per HPI - Hematologic/Lymphatic Hematologic/Lymphatic pediatric: Present: as per HPI - Musculoskeletal Musculoskeletal ROS GI: Present: as per HPI - Integumentary Integumentary GI: Present: as per HPI - Psychiatric ROS Psychiatric GI: Present: as per HPI - Endocrine Endocrine IM: Present: as per HPI - Constitutional Vitals: Temp Pulse Resp BP Pulse Ox 97.4 F L 82 16 122/72 92 02/03/17 11:05 02/03/17 11:05 02/03/17 11:05 02/03/17 11:05 02/03/17 11:05 General appearance: Present: cooperative, A&O X 3, no acute distress, answers questions appropriately - Head Head exam: Present: atraumatic, normocephalic - Eye Eye exam: Present: normal appearance, sclera anicteric - ENT ENT exam: Present: mucous membranes moist - Neck Neck exam general surgery: Present: normal inspection, trachea midline - Respiratory Respiratory exam: Present: decreased breath sounds, CTAB - Cardiovascular Cardiovascular exam: Present: RRR, +S1, +S2 - GI/Abdominal GI/Abdominal exam: Present: distended, firm, soft, no peritoneal signs. Absent : guarding, tenderness - Rectal Rectal exam: Present: deferred - Extremities Exam Extremities exam: Present: warm - Neurological Exam Neurological exam: Present: no focal deficits - Psychiatric Psychiatric exam: Present: normal affect, normal mood - Skin Skin exam: Present: dry, intact, normal color, warm Results - Labs CBC & Chem 7: 02/03/17 06:30 02/03/17 06:30 Labs: Last Result Calcium 9.2 mg/dL (8.6-10.8) 02/03/17 06:30 Troponin I 0.00 ng/mL (0-0.03) 02/01/17 00:39 Triglycerides 155 mg/dL (< 150) H 02/01/17 00:39 Stool Occult Blood Positive (Negative) A 02/03/17 04:55 Entire Visit Hgb 10.1 g/dL (11.5-15.4) L 02/03/17 06:30 Hct 31.0 % (35.3-44.9) L 02/03/17 06:30 PT 13.3 Seconds (9.4-12.1) H 01/31/17 11:37 Total Bilirubin 1.0 mg/dL (0.2-1.2) 01/31/17 11:37 AST 32 Units/L (5-34) 01/31/17 11:37 ALT 23 Units/L (0-55) 01/31/17 11:37 Ammonia 48 mcmol/L (18-72) 01/31/17 17:06 Lipase 45 Units/L (8-78) 01/31/17 11:37 - ABG ABG results: PT/INR, D-dimer PT 13.3 Seconds (9.4-12.1) H 01/31/17 11:37 Consult Discharge Plan - Plan Referrals: Rudy Becker Jr, HOME ECONOMIST [Advanced Practice Nurse] - 02/08/17 9:30 am <Charli Ny - Last Filed: 02/03/17 14:54> Date of Encounter: 02/03/17 Time of Encounter: 13:00 - Time Spent With Patient Total time spent is greater than 50% in coordination of care (as documented) at patient's floor/unit and/or counseling patient: GI History of Present Illness - Data of Consult Requesting Physician: Miguel Estrada MD - Consult Narrative History of present illness: Ms. Morgan is a 61 year old female - Constitutional Vitals: Temp Pulse Resp BP Pulse Ox 97.9 F 74 16 102/63 97 02/03/17 14:49 02/03/17 14:49 02/03/17 14:49 02/03/17 14:49 02/03/17 14:49 Results - Labs CBC & Chem 7: 02/03/17 06:30 02/03/17 06:30 Labs: Last Result Calcium 9.2 mg/dL (8.6-10.8) 02/03/17 06:30 Troponin I 0.00 ng/mL (0-0.03) 02/01/17 00:39 Triglycerides 155 mg/dL (< 150) H 02/01/17 00:39 Stool Occult Blood Positive (Negative) A 02/03/17 04:55 Entire Visit Hgb 10.1 g/dL (11.5-15.4) L 02/03/17 06:30 Hct 31.0 % (35.3-44.9) L 02/03/17 06:30 PT 13.3 Seconds (9.4-12.1) H 01/31/17 11:37 Total Bilirubin 1.0 mg/dL (0.2-1.2) 01/31/17 11:37 AST 32 Units/L (5-34) 01/31/17 11:37 ALT 23 Units/L (0-55) 01/31/17 11:37 Ammonia 48 mcmol/L (18-72) 01/31/17 17:06 Lipase 45 Units/L (8-78) 01/31/17 11:37 - ABG ABG results: PT/INR, D-dimer PT 13.3 Seconds (9.4-12.1) H 01/31/17 11:37 - Attending Attestation I examined this patient and my medical decision-making was reviewed with the SLASHER SAWYER/PA/Advanced Practice Nurse/Resident Physician. I agree with the documented findings, disposition and treatment plan as described except to the extent set forth below. EGD with poss banding after platelets transfusion
--- NOTE | 2017-02-03 15:05 | Discharge Summary ---
Date of Encounter: 02/03/17 Time of Encounter: 10:00 - Discharge Diagnosis (1) Chest pain Priority: Primary Status: Acute Qualifiers: Chest pain type: unspecified Qualified Code(s): R07.9 - Chest pain, unspecified (2) SIMON (nonalcoholic steatohepatitis) Priority: Secondary Status: Chronic (3) Hyperlipidemia Priority: Secondary Status: Chronic Qualifiers: Hyperlipidemia type: unspecified Qualified Code(s): E78.5 - Hyperlipidemia , unspecified (4) Stable angina Priority: Secondary Status: Acute (5) Cirrhosis Priority: Secondary Status: Acute Qualifiers: Hepatic cirrhosis type: other cirrhosis Qualified Code(s): K74.69 - Other cirrhosis of liver (6) Pancytopenia Priority: Secondary Status: Acute (7) Anemia Priority: Secondary Status: Acute Qualifiers: Anemia type: unspecified type Qualified Code(s): D64.9 - Anemia, unspecified (8) Morbid obesity with BMI of 40.0-44.9, adult Priority: Secondary Status: Acute - Discharge Medications Prescriptions: Isosorbide MONOnitrate (24 HR) [Imdur] 90 mg PO DAILY #90 tab.er.24h Ranolazine [Ranexa] 1,000 mg PO BID #120 tab.er.12h Home Medications: Amitriptyline [Elavil] 10 mg PO HS 12/31/15 [History] Furosemide [Lasix] 20 mg PO DAILY PRN 12/31/15 [History] LORazepam [Ativan] 0.5 mg PO DAILY PRN 12/31/15 [History] Lactulose 30 ml PO DAILY PRN 12/31/15 [History] Lisinopril-HCTZ 20-12.5 [Prinzide 20-12.5] 0.5 tab PO BID 12/31/15 [History] Loratadine [Claritin] 10 mg PO DAILY 12/31/15 [History] Metformin [Glucophage] 1,000 mg PO BIDWM 12/31/15 [History] Metoprolol [Lopressor] 12.5 mg PO BID 12/31/15 [History] Nitroglycerin [Nitrostat] 0.4 mg SL AD PRN 12/31/15 [History] Omeprazole [PriLOSEC] 40 mg PO DAILY 12/31/15 [History] Ranitidine HCl [Zantac] 150 mg PO HS 12/31/15 [History] TraMADol [Ultram] 50 mg PO Q6HR PRN 12/31/15 [History] Rosuvastatin Calcium [Crestor] 20 mg PO DAILY 09/11/16 [History] Albuterol Sulfate [Ventolin Hfa] 2 puff IH Q4H PRN 01/31/17 [History] Aspirin 81 mg PO DAILY 01/31/17 [History] Fluticasone Propionate Nasal [Flonase] 1 spray NS DAILY 01/31/17 [History] Fluticasone/Vilanterol [Breo Ellipta 100-25 Mcg INH] 1 puff IH DAILY 01/31/17 [ History] Gabapentin [Neurontin] 100 mg PO BID 01/31/17 [History] Insulin ASPART [Novolog] 0 unit SQ DAILY MDD PER INSULIN PUMP 01/31/17 [History] Ipratropium/Albuterol Neb [Duoneb] 3 ml IH Q6HR 01/31/17 [History] Meclizine HCl [Verticalm] 25 mg PO DAILY PRN 01/31/17 [History] Melatonin 9 mg PO HS 01/31/17 [History] Multivitamin [One Daily Essential] 1 tab PO DAILY 01/31/17 [History] Isosorbide MONOnitrate (24 HR) [Imdur] 90 mg PO DAILY #90 tab.er.24h 02/03/17 [ Rx] Ranolazine [Ranexa] 1,000 mg PO BID #120 tab.er.12h 02/03/17 [Rx] Allergies/Adverse Reactions: Allergies atorvastatin [From Lipitor] Allergy (Verified 09/11/16 12:22) Muscle Pain Hydroxychloroquine [From Plaquenil] Allergy (Verified 09/11/16 12:22) Hives escitalopram [From Lexapro] Adverse Reaction (Verified 09/11/16 12:22) See Comments Patient states it didn't work. Procedures/tests Complete & Pending: Procedures Performed prior 72 hours Category Date Time Status NM jayshree perf SPECT multi [NM] Routine Exams 02/01/17 08:45 Taken SP pharm nuclear stress Routine Y 02/01/17 08:44 Completed Date of admission: 01/31/17 15:23 Primary care physician: Thais Olson Consults: 02/02/17 07:31 Consult to Oncology Hematology [CONS] Routine Consulting Provider: Rudy Becker Jr Reason for Consult: leukopenia, thrombocytopenia, appears to be chronic, trending down Time Notified: 07:42 Call Completed: Yes 02/02/17 22:00 Consult to Package Sealer [CONS] Routine Comment: 02/03/17 07:49 Consult to Gastroenterology [CONS] Routine Consulting Provider: Gastroenterology Tiffany Reason for Consult: FOBT positive, slightly drop of hgb Call Completed: No Discharging clinician: Miguel Estrada Anticipated date of discharge: 02/03/17 - Patient Status Disposition: Home, Self-Care Condition: Good Functional capacity at discharge: independent ambulation Overall status at discharge: patient is back to baseline - Discharge Instructions Follow Up With: Rudy Becker Jr, DATA ANALYTICS SPECIALIST [Advanced Practice Nurse] - 02/08/17 9:30 am - Diet and Activity Activity: increase activity as tolerated Diet: diabetic diet Interval History: Ms. Morgan is a 61 year old female past uncle history of coronary artery disease with stent placed LAD 2012 diabetes on insulin pump fibro-myalgia GERD hypertensionobstructive sleep apnea, asthma SIMON esophageal varices. According to the patient partially 3 days ago she was awakened from sleep experiencing palpitations shortness of breath palpitations resolved on their own however she continued to experience intermittent chest pain over the next 3 days. Chest pain is described as dull nonradiating there are no aggravating factors and some relief with nitroglycerin. Associated symptoms include shortness of breath as well as nausea This a.m. patient awoke began to experience chest pain she did take a nitroglycerin which did relieve her pain however she continues to experience chest heaviness she reported to the ER for evaluation. ER records lab work revealed troponin of 0 leukopenia as well as thrombocytopenia rest of lab work is unremarkable. Chest x-ray revealed low lung volumes EKG with sinus rhythm nonspecific T-wave changes. She is admitted for further workup and evaluation. Presently patient denies any chest pain she does not appear to be any respiratory distress. She does admit to some weight gain particular her abdomen as well as shortness of breath,fatigue. Upon assessment abdomen is soft distended slight fluid wave, +1 edema to lower extremities bilaterally. Patient also admitted to occasional black stool no hematemesis or hematochezia. Heart sounds with S1-S2 no murmur or clicks gallops noted lungs sounds clear Hospital course: Ms. Morgan is a 61 year old female admitted for chest pain. Patient has history of CAD so need to rule out ACS. 3 sets of troponin was checked, which were negative. Cardiology saw patient, nuclear stress study has been done, which is negative. Pt was considered stable angina, dose of imdur and Ranexa increased per regional vice president surgical sales. After treatment, her symptoms has improved. Patient has a low hemoglobin, guaiac positive, GI consult was called and no plan for intervention right now. Her hemoglobin level is stable, no signs of active bleeding. Saw and examined the patient today. she is awake alert, oriented 3. Denies chest pain or shortness of breath. Vitals are stable. Patient will discharge home today, follow up with PCP as outpatient - Time Spent with Patient Total time spent providing and/or coordinating discharge services: 40 minutes Greater than 30 minutes - Constitutional Vitals: Temp Pulse Resp BP Pulse Ox 97.9 F 74 16 102/63 97 02/03/17 14:49 02/03/17 14:49 02/03/17 14:49 02/03/17 14:49 02/03/17 14:49 General appearance: Present: A&O X 3, morbidly obese, pleasant, no acute distress, answers questions appropriately - Head Head exam: Present: atraumatic, normocephalic - Eye Eye exam: Present: PERRL, conjuntiva pink, sclera anicteric Pupils: Present: PERRL - Neck Neck exam general surgery: Present: supple, trachea midline. Absent: lymphadenopathy - Respiratory Respiratory exam: Present: CTAB. Absent: accessory muscle use, rales, rhonchi, wheezes - Cardiovascular Cardiovascular exam: Present: RRR, +S1, +S2. Absent: diastolic murmur, gallop, rubs, systolic murmur - GI/Abdominal GI/Abdominal exam: Present: normal bowel sounds, soft, no peritoneal signs. Absent: distended, tenderness - Extremities Exam Extremities exam: Present: warm, radial pulses palpable and symetrical. Absent : calf tenderness, cyanotic, pedal edema - Neurological Exam Neurological exam: Present: CN II-XII intact, oriented X3, no focal deficits. Absent: pronater drift, facial droop, speech deficit - Skin Skin exam: Present: dry, intact - VTE Documentation of Mechanical Device: Graduated compression elastic hosiery
--- NOTE | 2017-02-03 15:33 | Event Note ---
Date of Encounter: 02/03/17 Time of Encounter: 16:00 GI plan for EGD tomorrow b/o guaiac positive. Will hold discharge today. Continue current treatment.
[2017-02-03] MEDS ORDERED: *HR* Promethazine 25 MG/ML VIAL IVP PRN (17:28)
[2017-02-03] MEDS ORDERED: Promethazine 12.5 MG in 0.9 % Sodium Chloride 50 ML IVPB PRN (18:27)
[2017-02-03] MEDS: *HR* LORazepam 0.5 MG TABLET PO PRN (21:23)
[2017-02-03] MEDS: Melatonin 3 MG TABLET PO SCH (21:23)
[2017-02-03] MEDS: Insulin DETEMIR 100 UNIT/ML X5UNITS SQ SCH (21:24)
[2017-02-04] MEDS: Ipratropium/Albuterol Neb 3 ML IH SCH ×4 (04:17→22:33)
[2017-02-04 05:13] LABS: Hemoglobin 9.6 g/dL (11.5-15.4); Immature Granulocytes % 0.7 % (0-4)
[2017-02-04 05:14] LABS: Basophils % 0.7 %; Eosinophils % 2.6 %; Hematocrit 29.9 % (35.3-44.9); Lymphocytes # 0.4 K/mcL (0.6-4.6); Lymphocytes % 24.8 %; Mean Corpuscular HGB Conc 32.1 g/dL (31.6-35.5); Mean Corpuscular Hemoglobin 27.8 pg (28.0-33.3); Mean Corpuscular Volume 86.7 fL (83.0-100.0); Mean Platelet Volume 11.2 fL (9.4-12.4); Monocytes # 0.2 K/mcL (0.0-1.3); Monocytes % 10.5 %; Neutrophils # 0.9 K/mcL (1.6-8.9); Red Blood Count 3.45 M/mcL (3.82-4.97); Red Cell Distribution Width 14.7 % (11.5-14.5); Segmented Neutrophils % 60.7 %
[2017-02-04 05:20] LABS: Platelet Count 44 K/mcL (140-400)
[2017-02-04 05:40] LABS: Platelet Estimate Marked Decrease (Normal)
[2017-02-04] MEDS: Insulin LISPRO 300 UNITS/3 ML VIAL SQ SCH ×7 (08:26→21:32)
[2017-02-04] MEDS: (Fluticasone/Vilanterol [Breo Ellipta 100-25 Mcg Inh] IH SCH (08:27)
--- NOTE | 2017-02-04 09:06 | Anesthesia Evaluation PreOp ---
Date of Encounter: 02/04/17 Time of Encounter: 09:02 - Past History Planned Operation: EGD Cardiac History: DE, HTN, Hyperlipidemia, Cardiac Stent (stent x 1) Pulmonary History: Asthma, Snore, LANI Dx ELECTROENCEPHALOGRAPH TECHNOLOGIST History: Denies Any Significant HX Other Medical History: Hepatic (SIMON), Bleeding (thrombocytopenia), Diabetes Type II, GERD, Other (fibromyalgia, esophageal varices) Anesthesia History: Past Anesthesia (hysterectomy), Difficult Airway Alcohol Use: none Drug use: none Medications and Allergies Amitriptyline [Elavil] 10 mg PO HS 12/31/15 [History] Furosemide [Lasix] 20 mg PO DAILY PRN 12/31/15 [History] LORazepam [Ativan] 0.5 mg PO DAILY PRN 12/31/15 [History] Lactulose 30 ml PO DAILY PRN 12/31/15 [History] Lisinopril-HCTZ 20-12.5 [Prinzide 20-12.5] 0.5 tab PO BID 12/31/15 [History] Loratadine [Claritin] 10 mg PO DAILY 12/31/15 [History] Metformin [Glucophage] 1,000 mg PO BIDWM 12/31/15 [History] Metoprolol [Lopressor] 12.5 mg PO BID 12/31/15 [History] Nitroglycerin [Nitrostat] 0.4 mg SL AD PRN 12/31/15 [History] Omeprazole [PriLOSEC] 40 mg PO DAILY 12/31/15 [History] Ranitidine HCl [Zantac] 150 mg PO HS 12/31/15 [History] TraMADol [Ultram] 50 mg PO Q6HR PRN 12/31/15 [History] Rosuvastatin Calcium [Crestor] 20 mg PO DAILY 09/11/16 [History] Albuterol Sulfate [Ventolin Hfa] 2 puff IH Q4H PRN 01/31/17 [History] Aspirin 81 mg PO DAILY 01/31/17 [History] Fluticasone Propionate Nasal [Flonase] 1 spray NS DAILY 01/31/17 [History] Fluticasone/Vilanterol [Breo Ellipta 100-25 Mcg INH] 1 puff IH DAILY 01/31/17 [ History] Gabapentin [Neurontin] 100 mg PO BID 01/31/17 [History] Insulin ASPART [Novolog] 0 unit SQ DAILY MDD PER INSULIN PUMP 01/31/17 [History] Ipratropium/Albuterol Neb [Duoneb] 3 ml IH Q6HR 01/31/17 [History] Meclizine HCl [Verticalm] 25 mg PO DAILY PRN 01/31/17 [History] Melatonin 9 mg PO HS 01/31/17 [History] Multivitamin [One Daily Essential] 1 tab PO DAILY 01/31/17 [History] Isosorbide MONOnitrate (24 HR) [Imdur] 90 mg PO DAILY #90 tab.er.24h 02/03/17 [ Rx] Ranolazine [Ranexa] 1,000 mg PO BID #120 tab.er.12h 02/03/17 [Rx] Allergies atorvastatin [From Lipitor] Allergy (Verified 09/11/16 12:22) Muscle Pain Hydroxychloroquine [From Plaquenil] Allergy (Verified 09/11/16 12:22) Hives escitalopram [From Lexapro] Adverse Reaction (Verified 09/11/16 12:22) See Comments Patient states it didn't work. - Meds/Allergy Pre-op Review Medications Reviewed: Yes Allergies Reviewed: Yes Beta Blockers on Current Med List: Yes If Beta Blockers taken, Date/Time (Last Dose taken): 02/04/2017 at 0827 Anesthesia Results - Labs 02/04/17 05:02 02/03/17 06:30 - Imaging EKG: report reviewed (01/31/2017 SR, NSST abnormality) Additional studies: 02/01/2017 Stress EF 80% small sized, moderate intaensity, primarily fixed apex and apical lateral defect , wall motion appears normal, findings c/w artifact perfusion imaging was negative for ischemia and infarct 01/31/2017 Echo LVEF 60-65% mildly dilated LA 03/31/2016 Cath EF 50% severe small vessel disease Anesthesia Exam Vital Signs/O2 Sat/Glucose, Most Recent Temp Pulse Resp BP Pulse Ox 97.8 F 78 18 120/76 95 02/04/17 08:10 02/04/17 08:10 02/04/17 08:10 02/04/17 08:10 02/04/17 08:10 Blood Glucose* 295 Height: 5'/1.52 m Weight: 197 lbs/89.8 kg NPO (# of Hours): 8 Pain Scale: 0 Pain Scale Used: Numeric (1 - 10) - HEENT Pupil (Motor): EOMI Mallampati: IV Teeth: Normal Oral Opening: Greater than 3 - ELECTROENCEPHALOGRAPH TECHNOLOGIST LOC: Oriented ELECTROENCEPHALOGRAPH TECHNOLOGIST Motor: Normal RUE, Normal LUE, Normal RLE, Normal LLE, Normal Face ELECTROENCEPHALOGRAPH TECHNOLOGIST Sensory: Normal: RUE, LUE, RLE, LLE, Face - Cardiac Rhythm: Regular Murmur: None - Pulmonary Breath Sounds: bilateral Clear Respiratory Effort: Symmetrical Anesthesia Assess/Plan ASA Score: 4 Modified [place] Scale for Level of Consciousness: Cooperative, oriented, and tranquil Anesthetic Plan: MAC Monitoring Plan: Standard Monitors
[2017-02-04] MEDS ORDERED: *HR* Morphine 2 MG/ML SYRINGE IV ONE (11:48)
[2017-02-04] MEDS: Insulin DETEMIR 100 UNIT/ML X5UNITS SQ SCH ×2 (12:25→21:35)
[2017-02-04] MEDS: Aspirin 81 MG TAB.CHEW PO SCH (17:07)
[2017-02-04] MEDS: Isosorbide MONOnitrate (24 HR) 30 MG TAB.ER.24H PO SCH (17:07)
[2017-02-04] MEDS: Loratadine 10 MG TABLET PO SCH (17:07)
[2017-02-04] MEDS: Furosemide 20 MG TABLET PO SCH (17:08)
[2017-02-04] MEDS: Ranolazine 500 MG TAB.ER.12H PO SCH ×2 (17:08→21:34)
[2017-02-04] MEDS: Lisinopril-HCTZ 20-12.5mg TABLET PO SCH ×2 (17:08→21:32)
[2017-02-04] MEDS: Gabapentin 100 MG CAPSULE PO SCH ×2 (17:08→21:32)
[2017-02-04] MEDS: Multivit/Ca/Min/Fe/FA 1 TAB TABLET PO SCH (17:08)
[2017-02-04] MEDS: 0.9 % Sodium Chloride 1,000 ML IVC SCH (17:35)
[2017-02-04] MEDS: Pantoprazole 40 MG VIAL IVP SCH (17:36)
[2017-02-04] MEDS: *HR* Morphine 2 MG/ML SYRINGE IV PRN ×2 (17:36→23:58)
--- NOTE | 2017-02-04 19:01 | Internal Med Progress Note ---
Date of Encounter: 02/04/17 Time of Encounter: 15:00 - Assessment and plan (1) Chest pain Current Visit: No Status: Acute Assessment and plan: Patient completed 2 day stress test today. It was negative for ischemia, gated in 80%. Perfusion imaging negative for ischemia or infarct. Patient denies chest pain this morning. I awakened her from sleep and at that time she denied chest pain. Cardiology recommends continued medical management, and increase Ranexa to 1000 mg twice a day and increase Imdur. Troponins were negative 3. EKG is normal sinus rhythm. Patient had echocardiogram on January 31. LVEF 60-65%, normal RV size and function, mildly dilated left atrium, and valvular function not assessed on limited study. 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 It is not tender to palpation. Minimal fluid wave noted. Patient states that her abdomen looks normal. She denies abdominal pain. She sees hepatic specialist at [facility], next appointment is in March. Labs were within normal limits. Continue Lasix Lactulose home dose. I and O Monitor labs Monitor VS (3) Hyperlipidemia Current Visit: No Status: Chronic Assessment and plan: Chronic. Continue home medication. Qualifiers: Hyperlipidemia type: unspecified Qualified Code(s): E78.5 - Hyperlipidemia , unspecified (4) Stable angina Current Visit: Yes Status: Acute (5) Cirrhosis Current Visit: Yes Status: Acute Qualifiers: Hepatic cirrhosis type: other cirrhosis Qualified Code(s): K74.69 - Other cirrhosis of liver (6) Pancytopenia Current Visit: Yes Status: Acute (7) Anemia Current Visit: Yes Status: Acute Assessment and plan: Patient has anemia, guaiac positive. GI consult was called and had EGD. Patient has varicosis of esophagus vain, band placed by GI Qualifiers: Anemia type: unspecified type Qualified Code(s): D64.9 - Anemia, unspecified (8) Morbid obesity with BMI of 40.0-44.9, adult Current Visit: No Status: Acute Assessment and plan: life Style modification (9) DVT prophylaxis Current Visit: Yes Status: Acute Assessment and plan: EPCD - Time Spent With Patient 25 - 35 minutes - Subjective Interval history: Patient is a 61-year-old female admitted for chest pain. She has a low hemoglobin and guaiac positive. GI consult was called and she had endoscopic today. Saw and examined the patient after she comes back from EGD. She complained mild epigastric pain. Abdominal is soft, no guarding or rebound. We will keep patient nothing by mouth. IV PPI. And symptomatic treatment. - Constitutional Vitals: Temp Pulse Resp BP Pulse Ox 98.2 F 77 18 111/67 96 02/04/17 15:11 02/04/17 15:11 02/04/17 16:00 02/04/17 15:11 02/04/17 16:00 General appearance: Present: A&O X 3, morbidly obese, pleasant, no acute distress, answers questions appropriately - Head Head exam: Present: atraumatic, normocephalic - Eye Eye exam: Present: PERRL, conjuntiva pink, sclera anicteric Pupils: Present: PERRL - Neck Neck exam general surgery: Present: supple, trachea midline. Absent: lymphadenopathy - Respiratory Respiratory exam: Present: CTAB. Absent: accessory muscle use, rales, rhonchi, wheezes - Cardiovascular Cardiovascular exam: Present: RRR, +S1, +S2. Absent: diastolic murmur, gallop, rubs, systolic murmur - GI/Abdominal GI/Abdominal exam: Present: normal bowel sounds, soft, no peritoneal signs. Absent: distended, tenderness - Extremities Exam Extremities exam: Present: warm, radial pulses palpable and symetrical. Absent : calf tenderness, cyanotic, pedal edema - Neurological Exam Neurological exam: Present: CN II-XII intact, oriented X3, no focal deficits. Absent: pronater drift, facial droop, speech deficit - Skin Skin exam: Present: dry, intact Internal Medicine: Result - Labs CBC & Chem 7: 02/04/17 05:02 02/03/17 06:30 Labs: Short CBC 02/04/17 Range/Units 05:02 WBC 1.5 L (4.3-11.1) K/mcL Hgb 9.6 L (11.5-15.4) g/dL Hct 29.9 L (35.3-44.9) % Plt Count 44 L (140-400) K/mcL Neutrophils # 0.9 L (1.6-8.9) K/mcL - ABG Interpretation ABG results: PT/INR, D-dimer PT 13.3 Seconds (9.4-12.1) H 01/31/17 11:37 - VTE Documentation of Mechanical Device: Graduated compression elastic hosiery Consult Discharge Plan - Plan Referrals: Rudy Becker Jr, CONTINUITY COORDINATOR [Advanced Practice Nurse] - 02/08/17 9:30 am
[2017-02-04] MEDS: Melatonin 3 MG TABLET PO SCH (21:32)
[2017-02-05 04:24] LABS: Basophils % 0.6 %; Hemoglobin 10.4 g/dL (11.5-15.4)
[2017-02-05 04:26] LABS: Eosinophils # 0.1 K/mcL (0.0-0.6); Eosinophils % 3.4 %; Hematocrit 31.5 % (35.3-44.9); Lymphocytes # 0.5 K/mcL (0.6-4.6); Lymphocytes % 26.7 %; Mean Corpuscular Hemoglobin 28.3 pg (28.0-33.3); Mean Corpuscular Volume 85.8 fL (83.0-100.0); Mean Platelet Volume 11.4 fL (9.4-12.4); Monocytes # 0.2 K/mcL (0.0-1.3); Monocytes % 9.1 %; Neutrophils # 1.1 K/mcL (1.6-8.9); Red Blood Count 3.67 M/mcL (3.82-4.97); Red Cell Distribution Width 14.6 % (11.5-14.5); Segmented Neutrophils % 60.2 %
[2017-02-05] MEDS: Ipratropium/Albuterol Neb 3 ML IH SCH ×2 (04:27→10:59)
[2017-02-05 04:33] LABS: Platelet Count 41 K/mcL (140-400)
[2017-02-05 04:41] LABS: BUN/Creatinine Ratio 22 (6-26); Blood Urea Nitrogen 16 mg/dL (7-20); Calcium 8.9 mg/dL (8.6-10.8); Carbon Dioxide 31 mEq/L (19-29); Chloride 103 mEq/L (98-109); Glucose 113 mg/dL (70-99); Osmolality,Calculated 292 (280-300); Potassium 3.6 mEq/L (3.5-4.5); Sodium 140 mEq/L (136-145); eGFR For African Americans > 60 (> 60); eGFR For Non-African Americans > 60 (> 60)
[2017-02-05 05:04] LABS: Platelet Estimate Decreased (Normal)
[2017-02-05] MEDS: Pantoprazole 40 MG VIAL IVP SCH (06:19)
[2017-02-05] MEDS: 0.9 % Sodium Chloride 1,000 ML IVC SCH (06:19)
[2017-02-05] MEDS: *HR* Morphine 2 MG/ML SYRINGE IV PRN (06:25)
[2017-02-05] MEDS: Insulin LISPRO 300 UNITS/3 ML VIAL SQ SCH ×4 (07:15→12:36)
[2017-02-05] MEDS: (Fluticasone/Vilanterol [Breo Ellipta 100-25 Mcg Inh] IH SCH (08:09)
[2017-02-05] MEDS: Insulin DETEMIR 100 UNIT/ML X5UNITS SQ SCH (08:12)
[2017-02-05] MEDS: Gabapentin 100 MG CAPSULE PO SCH (08:16)
[2017-02-05] MEDS: Lisinopril-HCTZ 20-12.5mg TABLET PO SCH (08:16)
[2017-02-05] MEDS: Ranolazine 500 MG TAB.ER.12H PO SCH (08:16)
[2017-02-05] MEDS: Multivit/Ca/Min/Fe/FA 1 TAB TABLET PO SCH (08:16)
[2017-02-05] MEDS: Isosorbide MONOnitrate (24 HR) 30 MG TAB.ER.24H PO SCH (08:17)
[2017-02-05] MEDS: Furosemide 20 MG TABLET PO SCH (08:17)
[2017-02-05] MEDS: Aspirin 81 MG TAB.CHEW PO SCH (08:17)
[2017-02-05] MEDS: Loratadine 10 MG TABLET PO SCH (08:17)
[2017-02-05 11:35] VITALS: BP 163/76
--- NOTE | 2017-02-05 12:56 | Internal Med Progress Note ---
Date of Encounter: 02/05/17 Time of Encounter: 10:00 - Assessment and plan (1) Chest pain Current Visit: No Status: Acute Assessment and plan: Patient completed 2 day stress test today. It was negative for ischemia, gated in 80%. Perfusion imaging negative for ischemia or infarct. Patient denies chest pain this morning. I awakened her from sleep and at that time she denied chest pain. Cardiology recommends continued medical management, and increase Ranexa to 1000 mg twice a day and increase Imdur. Troponins were negative 3. EKG is normal sinus rhythm. Patient had echocardiogram on January 31. LVEF 60-65%, normal RV size and function, mildly dilated left atrium, and valvular function not assessed on limited study. No chest today, plan to d/c home Qualifiers: Chest pain type: unspecified Qualified Code(s): R07.9 - Chest pain, unspecified (2) SIMON (nonalcoholic steatohepatitis) Current Visit: Yes Status: Chronic Assessment and plan: Abdomen is rounded and distended. It is not tender to palpation. Minimal fluid wave noted. Patient states that her abdomen looks normal. She denies abdominal pain. She sees hepatic specialist at [facility], next appointment is in March. Labs were within normal limits. Continue Lasix Lactulose home dose. I and O Monitor labs Monitor VS (3) Hyperlipidemia Current Visit: No Status: Chronic Assessment and plan: Chronic. Continue home medication. Qualifiers: Hyperlipidemia type: unspecified Qualified Code(s): E78.5 - Hyperlipidemia , unspecified (4) Stable angina Current Visit: Yes Status: Acute (5) Cirrhosis Current Visit: Yes Status: Acute Qualifiers: Hepatic cirrhosis type: other cirrhosis Qualified Code(s): K74.69 - Other cirrhosis of liver (6) Pancytopenia Current Visit: Yes Status: Acute (7) Anemia Current Visit: Yes Status: Acute Assessment and plan: Patient has anemia, guaiac positive. GI consult was called and had EGD. Band placed on varicosis. H/H stable for 4 days. Plan to d/c home. Continue PPI and avoid hard food. Qualifiers: Anemia type: unspecified type Qualified Code(s): D64.9 - Anemia, unspecified (8) Morbid obesity with BMI of 40.0-44.9, adult Current Visit: No Status: Acute Assessment and plan: life Style modification (9) DVT prophylaxis Current Visit: Yes Status: Acute Assessment and plan: EPCD - Time Spent With Patient 25 - 35 minutes - Subjective Interval history: Patient is a 61-year-old female admitted for chest pain. She has a low hemoglobin and guaiac positive. GI consult was called and she had endoscopic today. Saw and examined the patient today. She still complained mild epigastric pain but less. Abdominal is soft, no guarding or rebound. Abd CT ordered and done, no signs of perforation. Pt had lunch with full liquid, tolerate well. Pt said she has epigastric pain for about one week when last time she did EGD. Pt was educated eat soft diet. Her H/H is stable, will discharge pt home today. Discharge summary updated. Pt will follow up with [facility] for her cirrhosis and pancytopenia. - Constitutional Vitals: Temp Pulse Resp BP Pulse Ox 98.1 F 108 14 163/76 96 02/05/17 11:32 02/05/17 11:32 02/05/17 11:32 02/05/17 11:32 02/05/17 11:32 General appearance: Present: A&O X 3, morbidly obese, pleasant, no acute distress, answers questions appropriately - Head Head exam: Present: atraumatic, normocephalic - Eye Eye exam: Present: PERRL, conjuntiva pink, sclera anicteric Pupils: Present: PERRL - Neck Neck exam general surgery: Present: supple, trachea midline. Absent: lymphadenopathy - Respiratory Respiratory exam: Present: CTAB. Absent: accessory muscle use, rales, rhonchi, wheezes - Cardiovascular Cardiovascular exam: Present: RRR, +S1, +S2. Absent: diastolic murmur, gallop, rubs, systolic murmur - GI/Abdominal GI/Abdominal exam: Present: normal bowel sounds, soft, no peritoneal signs. Absent: distended, tenderness - Extremities Exam Extremities exam: Present: warm, radial pulses palpable and symetrical. Absent : calf tenderness, cyanotic, pedal edema - Neurological Exam Neurological exam: Present: CN II-XII intact, oriented X3, no focal deficits. Absent: pronater drift, facial droop, speech deficit - Skin Skin exam: Present: dry, intact Internal Medicine: Result - Labs CBC & Chem 7: 02/05/17 04:10 02/05/17 04:10 Labs: Short CBC 02/05/17 Range/Units 04:10 WBC 1.8 L (4.3-11.1) K/mcL Hgb 10.4 L (11.5-15.4) g/dL Hct 31.5 L (35.3-44.9) % Plt Count 41 L (140-400) K/mcL Neutrophils # 1.1 L (1.6-8.9) K/mcL BMP 02/05/17 04:10 Sodium 140 Potassium 3.6 D Chloride 103 Carbon Dioxide 31 H BUN 16 Creatinine 0.74 Glucose 113 H Calcium 8.9 - ABG Interpretation ABG results: PT/INR, D-dimer PT 13.3 Seconds (9.4-12.1) H 01/31/17 11:37 - Impressions Impressions Abdomen CT 02/05/17 08:37 IMPRESSION: Cirrhosis with splenomegaly and features of portal hypertension. Ascites. No mesenteric or retroperitoneal lymphadenopathy. D/ / 02/05/2017 10:18:09 John Reyna MD / apoorva Interpreting Provider: John Reyna MD - VTE Documentation of Mechanical Device: Graduated compression elastic hosiery Consult Discharge Plan - Plan Referrals: Rudy Becker Jr, MANAGER LIFE [Advanced Practice Nurse] - 02/08/17 9:30 am
[2017-02-05] MEDS ORDERED: Lidocaine -MPF 2% 5 ML VIAL INFILT ONE (13:42)
[2017-02-05] MEDS ORDERED: *HR* Propofol 200 MG/20 ML VIAL IVP ONE (13:42)
== END 2017-02-05 13:43 | disposition home or self-care (01) | DRG 303 ==
LOC: EMEROO 11:15 → 3BNU 11:15 → SUATTDRO 15:23 → 3BNU 16:31
PROVIDERS: ADMIT Hospitalist; ATTEND Internal Medicine

== ENCOUNTER 2017-03-15 15:59 | Observation (INO) ==
--- NOTE | 2017-03-15 16:40 | Emergency Department Note ---
Disposition Clinical Impression: Chest pain Disposition: Admitted As Inpatient Condition: Fair General Adult HPI - General Chief complaint: ED Chest Pain Stated complaint: Chest pain/ Possible meningitis exposure Time Seen by Provider: 03/15/17 16:37 Source: patient Limitations: physical limitation - History of Present Illness Pain Scale: 5 - Related Data Home Medications Medication Instructions Recorded Confirmed Amitriptyline [Elavil] 10 mg PO HS 12/31/15 03/15/17 Furosemide [Lasix] 40 mg PO DAILY 12/31/15 03/15/17 LORazepam [Ativan] 0.5 mg PO DAILY PRN 12/31/15 03/15/17 Lactulose 30 ml PO DAILY PRN 12/31/15 03/15/17 Lisinopril-HCTZ 20-12.5 [Prinzide 1 tab PO BID 12/31/15 03/15/17 20-12.5] Loratadine [Claritin] 10 mg PO DAILY 12/31/15 03/15/17 Nitroglycerin [Nitrostat] 0.4 mg SL Q5M PRN 12/31/15 03/15/17 Omeprazole [PriLOSEC] 40 mg PO BID 12/31/15 03/15/17 Ranitidine HCl [Zantac] 150 mg PO HS 12/31/15 03/15/17 metFORMIN [Glucophage] 1,000 mg PO BIDWM 12/31/15 03/15/17 traMADol [Ultram] 50 mg PO Q6HR PRN 12/31/15 03/15/17 Rosuvastatin Calcium [Crestor] 20 mg PO HS 09/11/16 03/15/17 Albuterol Sulfate [Ventolin Hfa] 2 puff IH Q4H PRN 01/31/17 03/15/17 Aspirin 81 mg PO DAILY 01/31/17 03/15/17 Fluticasone Propionate Nasal 1 spray NS DAILY PRN 01/31/17 03/15/17 [Flonase] Fluticasone/Vilanterol [Breo 1 puff IH DAILY 01/31/17 03/15/17 Ellipta 100-25 Mcg INH] Gabapentin [Neurontin] 100 mg PO BID 01/31/17 03/15/17 Ipratropium/Albuterol Neb [Duoneb] 3 ml IH Q6HR PRN 01/31/17 03/15/17 Meclizine HCl [Verticalm] 25 mg PO DAILY PRN 01/31/17 03/15/17 Melatonin 9 mg PO HS 01/31/17 03/15/17 Multivitamin [One Daily Essential] 1 tab PO DAILY 01/31/17 03/15/17 Metoprolol [Lopressor] 50 mg PO BID 03/15/17 03/15/17 Subcutaneous Insulin Pump [T:Slim] 1 each MC AD PRN 03/15/17 03/15/17 Previous Rx's Medication Instructions Recorded Isosorbide MONOnitrate (24 HR) 90 mg PO DAILY #90 tab.er.24h 02/03/17 [Imdur] Ranolazine [Ranexa] 1,000 mg PO BID #120 tab.er.12h 02/03/17 Allergies Allergy/AdvReac Type Severity Reaction Status Date / Time atorvastatin [From Lipitor] Allergy Muscle Pain Verified 02/08/17 09:49 Hydroxychloroquine Allergy Hives Verified 02/08/17 09:49 [From Plaquenil] escitalopram [From Lexapro] AdvReac See Verified 02/08/17 09:49 Comments Past Medical History - Past Medical History Medical history: Reports: coronary artery disease, diabetes, fibromyalgia, GERD , hyperlipidemia, hypertension, liver disease, myocardial infarction, other Surgical history: Reports: hysterectomy, other Psychiatric history: Reports: anxiety - Social History Smoking Status: Never smoker Smokeless Tobacco Status: No Alcohol use: Reports: none Drug use: Reports: none Physical Exam - General Limitations: physical limitation General appearance: alert, lethargic Course Vital Signs Temperature 98.8 F 03/15/17 16:07 Pulse Rate 91 03/15/17 16:07 Respiratory Rate 18 03/15/17 16:07 Blood Pressure 130/76 03/15/17 16:07 O2 Sat by Pulse Oximetry 96 03/15/17 16:07 Temperature 97.9 F 03/16/17 06:57 Pulse Rate 84 03/16/17 06:57 Respiratory Rate 18 03/16/17 06:57 Blood Pressure 141/77 03/16/17 06:57 O2 Sat by Pulse Oximetry 94 03/16/17 06:57 Oxygen Delivery Oxygen Delivery Room Air,Nasal Cannula Medical Decision Making - Lab Data Result diagrams: 03/15/17 17:34 03/16/17 04:17 Lab Results 03/15/17 03/15/17 03/15/17 Range/Units 17:34 17:34 17:34 WBC 1.8 L (4.3-11.1) K/mcL RBC 3.99 (3.82-4.97) M/mcL Hgb 10.8 L (11.5-15.4) g/dL Hct 33.8 L (35.3-44.9) % MCV 84.7 (83.0-100.0) fL MCH 27.1 L (28.0-33.3) pg MCHC 32.0 (31.6-35.5) g/dL RDW 14.9 H (11.5-14.5) % Plt Count 43 L (140-400) K/mcL MPV 11.3 (9.4-12.4) fL Seg Neutrophils % 64.0 % Band Neutrophils % 2.0 (0-4) % Lymphocytes % 24.0 % Monocytes % 6.0 % Eosinophils % 2.0 % Basophils % 2.0 % Neutrophils # 1.2 L (1.6-8.9) K/mcL Lymphocytes # 0.4 L (0.6-4.6) K/mcL Monocytes # 0.1 (0.0-1.3) K/mcL Eosinophils # 0.0 (0.0-0.6) K/mcL Basophils # 0.0 (0.0-0.2) K/mcL Platelet Estimate Marked Decrease L (Normal) PT 14.1 H (9.4-12.1) Seconds INR 1.3 APTT 32.7 (26.0-36.0) Seconds Sodium (136-145) mEq/L Potassium (3.5-4.5) mEq/L Chloride (98-109) mEq/L Carbon Dioxide (19-29) mEq/L BUN (7-20) mg/dL Creatinine (0.57-1.11) mg/dL Est GFR ( Amer) (> 60) Est GFR (Non-Af Amer) (> 60) BUN/Creatinine Ratio (6-26) Glucose (70-99) mg/dL Calculated Osmolality (280-300) Calcium (8.6-10.8) mg/dL Troponin I (0-0.03) ng/mL B-Natriuretic Peptide 13 (0-100) pg/mL 03/15/17 03/15/17 Range/Units 17:34 17:34 WBC (4.3-11.1) K/mcL RBC (3.82-4.97) M/mcL Hgb (11.5-15.4) g/dL Hct (35.3-44.9) % MCV (83.0-100.0) fL MCH (28.0-33.3) pg MCHC (31.6-35.5) g/dL RDW (11.5-14.5) % Plt Count (140-400) K/mcL MPV (9.4-12.4) fL Seg Neutrophils % % Band Neutrophils % (0-4) % Lymphocytes % % Monocytes % % Eosinophils % % Basophils % % Neutrophils # (1.6-8.9) K/mcL Lymphocytes # (0.6-4.6) K/mcL Monocytes # (0.0-1.3) K/mcL Eosinophils # (0.0-0.6) K/mcL Basophils # (0.0-0.2) K/mcL Platelet Estimate (Normal) PT (9.4-12.1) Seconds INR APTT (26.0-36.0) Seconds Sodium 141 (136-145) mEq/L Potassium 3.8 (3.5-4.5) mEq/L Chloride 106 (98-109) mEq/L Carbon Dioxide 28 (19-29) mEq/L BUN 11 (7-20) mg/dL Creatinine 0.72 (0.57-1.11) mg/dL Est GFR ( Amer) > 60 (> 60) Est GFR (Non-Af Amer) > 60 (> 60) BUN/Creatinine Ratio 15 (6-26) Glucose 158 H (70-99) mg/dL Calculated Osmolality 295 (280-300) Calcium 8.9 (8.6-10.8) mg/dL Troponin I 0.00 (0-0.03) ng/mL B-Natriuretic Peptide (0-100) pg/mL Attestation Statement - Attestation Attestation: I examined this patient and my medical decision-making was reviewed with the UNIX ANALYST/PA/Advanced Practice Nurse/Resident Physician. I agree with the documented findings, disposition and treatment plan as described except to the extent set forth below. Face to face time provide Patient complains of chest pressure. She has a history of cardiac disease- coronary artery disease with one stent previously. She also complains of increased abdominal girth due to ascites. She appears in no acute distress on exam. EKG reviewed by me
--- NOTE | 2017-03-15 16:46 | Emergency Department Note ---
Disposition Clinical Impression: Chest pain Qualifiers: Chest pain type: unspecified Qualified Code(s): R07.9 - Chest pain, unspecified Disposition: Admitted As Inpatient Condition: Fair Time of Disposition: 19:02 Chest Pain HPI - General Chief Complaint: ED Chest Pain Stated Complaint: Chest pain/ Possible meningitis exposure Time Seen by Provider: 03/15/17 16:37 Source: patient Mode of arrival: wheelchair Limitations: physical limitation Vital Signs Reviewed: Yes Nursing Notes Reviewed: Yes - History of Present Illness HPI Narrative: 62 year old female with PMHx of SIMON, HLD, stable angina, LANI, cirhosis, asthma , DM2, GERD. Patient presented to ED with CC of CP that started this morning. Patient states that the CP is substernal, in her left upper chest and radiates to the left shoulder blade. The pain is sharp/stabbing and described as 5/10. The pain started out constant, and is now intermittent. She cannot identify any exacerbating or relieving factors. When asked if her CP changes with activity or emotional stress, she states "no." SHe did not try to take any medications for her CP. She does have baby aspirin daily, and the last time she took it was last night. The chest pain woke her up from her sleep about 5-6 times. She admits to nausea with dry heaving, but no vomiting. She reports chills, denies fevers. She admits to shortness of breath and cough with yellow sputum production. She reports blood in her urine, which she states is a chronic problem. She also reports blood in her stool, which is a chronic problem as well. Cardiac Hx includes stent to LAD in 2013. LHC in 03/31/16 showed EF 50%, with severe small vessel disease, 40% in stent re-stenosis in mid LAD, 30% stenosis in circumflex, 30% stenosis in RCA, 80% stenosis in PDA. stress testing on 02/02/17 was negative for ischemia, medical management was recommended at that time. Echo on 01/31/17 showed LVEF 60-65% with normal RV size and function. Patient also reports that she has had possible exposure to meningitis about two weeks ago. she was visiting a relative that she had close contact with, but does not know if this relative had bacterial or viral meningitis. Her PCP is aware of this. Pt complaint: chest pain Onset (ago): hour(s) (started this morning.) Duration: intermittent, gradually worsening Onset: during rest, during exertion Pain Location: substernal, left chest Severity: moderate Severity scale (1-10): 5 Quality: sharp Pain Radiation: other (radiates to left shoulder. ) Improves with: nothing Worsens with: nothing Associated symptoms: Reports: nausea, cough. Denies: fever Treatments prior to arrival chest pain: none - Related Data Home Medications Medication Instructions Recorded Confirmed Amitriptyline [Elavil] 10 mg PO HS 12/31/15 03/15/17 Furosemide [Lasix] 40 mg PO DAILY 12/31/15 03/15/17 LORazepam [Ativan] 0.5 mg PO DAILY PRN 12/31/15 03/15/17 Lactulose 30 ml PO DAILY PRN 12/31/15 03/15/17 Lisinopril-HCTZ 20-12.5 [Prinzide 1 tab PO BID 12/31/15 03/15/17 20-12.5] Loratadine [Claritin] 10 mg PO DAILY 12/31/15 03/15/17 Nitroglycerin [Nitrostat] 0.4 mg SL Q5M PRN 12/31/15 03/15/17 Omeprazole [PriLOSEC] 40 mg PO BID 12/31/15 03/15/17 Ranitidine HCl [Zantac] 150 mg PO HS 12/31/15 03/15/17 metFORMIN [Glucophage] 1,000 mg PO BIDWM 12/31/15 03/15/17 traMADol [Ultram] 50 mg PO Q6HR PRN 12/31/15 03/15/17 Rosuvastatin Calcium [Crestor] 20 mg PO HS 09/11/16 03/15/17 Albuterol Sulfate [Ventolin Hfa] 2 puff IH Q4H PRN 01/31/17 03/15/17 Aspirin 81 mg PO DAILY 01/31/17 03/15/17 Fluticasone Propionate Nasal 1 spray NS DAILY PRN 01/31/17 03/15/17 [Flonase] Fluticasone/Vilanterol [Breo 1 puff IH DAILY 01/31/17 03/15/17 Ellipta 100-25 Mcg INH] Gabapentin [Neurontin] 100 mg PO BID 01/31/17 03/15/17 Ipratropium/Albuterol Neb [Duoneb] 3 ml IH Q6HR PRN 01/31/17 03/15/17 Meclizine HCl [Verticalm] 25 mg PO DAILY PRN 01/31/17 03/15/17 Melatonin 9 mg PO HS 01/31/17 03/15/17 Multivitamin [One Daily Essential] 1 tab PO DAILY 01/31/17 03/15/17 Metoprolol [Lopressor] 50 mg PO BID 03/15/17 03/15/17 Subcutaneous Insulin Pump [T:Slim] 1 each MC AD PRN 03/15/17 03/15/17 Previous Rx's Medication Instructions Recorded Isosorbide MONOnitrate (24 HR) 90 mg PO DAILY #90 tab.er.24h 02/03/17 [Imdur] Ranolazine [Ranexa] 1,000 mg PO BID #120 tab.er.12h 02/03/17 Allergies Allergy/AdvReac Type Severity Reaction Status Date / Time atorvastatin [From Lipitor] Allergy Muscle Pain Verified 02/08/17 09:49 Hydroxychloroquine Allergy Hives Verified 02/08/17 09:49 [From Plaquenil] escitalopram [From Lexapro] AdvReac See Verified 02/08/17 09:49 Comments All systems ED: reviewed and negative except as stated. Constitutional: Reports: chills Cardiovascular: Reports: chest pain, dyspnea on exertion Respiratory: Reports: cough (with yellow sputum production. ) Gastrointestinal: Reports: nausea, other (significant abdominal distention. ). Denies: vomiting (patient did report to having dry heaving. ) Genitourinary: Reports: hematuria Chest Pain PMH - Past Medical History Medical history: Reports: coronary artery disease, diabetes, fibromyalgia, GERD , hyperlipidemia, hypertension, liver disease, myocardial infarction, other Surgical history: Reports: hysterectomy, other Psychiatric history: Reports: anxiety - Social History Smoking Status: Never smoker Alcohol use: Reports: none Drug use: Reports: none Physical Exam - General Limitations: physical limitation General appearance: alert, lethargic, obese - Head Head exam: atraumatic, normocephalic - Eye Eye exam: Present: normal appearance, PERRL - Neck Neck exam: Present: full ROM. Absent: meningismus - Chest Chest inspection: Present: normal inspection - Respiratory Respiratory exam: Present: normal lung sounds bilaterally - Cardiovascular Cardiovascular exam: Present: regular rate, normal rhythm, +S1, +S2 - Abdominal Exam Abdominal exam: Present: normal bowel sounds, other (firm, significantly distended. ). Absent: guarding, rebound - Extremities Exam Extremities exam: Present: normal inspection. Absent: pedal edema, calf tenderness - Neurological Exam Neurological exam: Present: alert, oriented X3 Course - Reevaluation(s) Reevaluation #1: EKG showed no ischemic changes. CXR showed no acute process. CBC showed pancytopenia, which appears to be chronic. BMP within normal limits. Troponin negative. Vital Signs Temperature 98.8 F 03/15/17 16:07 Pulse Rate 91 03/15/17 16:07 Respiratory Rate 18 03/15/17 16:07 Blood Pressure 130/76 03/15/17 16:07 O2 Sat by Pulse Oximetry 96 03/15/17 16:07 Temperature 98.8 F 03/15/17 16:07 Pulse Rate 78 03/15/17 17:38 Respiratory Rate 18 03/15/17 17:38 Blood Pressure 141/72 03/15/17 17:38 O2 Sat by Pulse Oximetry 100 03/15/17 17:38 Oxygen Delivery Oxygen Delivery Room Air Chest Pain - MDM Narrative Medical decision making narrative: 62 year old female with PMHx of SIMON, HLD, stable angina, LANI, cirhosis, asthma , DM2, GERD. Patient presented to ED with CC of CP that started this morning. Patient states that the CP is substernal, in her left upper chest and radiates to the left shoulder blade. The pain is sharp/stabbing and described as 5/10, no exacerbating or relieving factors. Presents as atypical chest pain. Patient has significant cardiac risk factors, including morbid obesity, DM, hx of stent placement with re-stenosis, and prior admission last month for chest pain. Her Heart score is 3. CXR showed no acute process. CBC showed chronic pancytopenia, BMP was within normal limits. Troponin was negative. Due to her significant cardiac history and risk factors, patient will be admitted to obs. Lidia Tucker has accepted the patient for admission. - Differential Diagnosis Likely: atypical chest pain - Medical Records Medical records reviewed: Yes I reviewed the patient's medical records. - Lab Data Lab results reviewed: Yes I reviewed the patient's lab results. Result diagrams: 03/15/17 17:34 03/15/17 17:34 Lab Results 03/15/17 03/15/17 03/15/17 Range/Units 17:34 17:34 17:34 WBC 1.8 L (4.3-11.1) K/mcL RBC 3.99 (3.82-4.97) M/mcL Hgb 10.8 L (11.5-15.4) g/dL Hct 33.8 L (35.3-44.9) % MCV 84.7 (83.0-100.0) fL MCH 27.1 L (28.0-33.3) pg MCHC 32.0 (31.6-35.5) g/dL RDW 14.9 H (11.5-14.5) % Plt Count 43 L (140-400) K/mcL MPV 11.3 (9.4-12.4) fL Seg Neutrophils % 64.0 % Band Neutrophils % 2.0 (0-4) % Lymphocytes % 24.0 % Monocytes % 6.0 % Eosinophils % 2.0 % Basophils % 2.0 % Neutrophils # 1.2 L (1.6-8.9) K/mcL Lymphocytes # 0.4 L (0.6-4.6) K/mcL Monocytes # 0.1 (0.0-1.3) K/mcL Eosinophils # 0.0 (0.0-0.6) K/mcL Basophils # 0.0 (0.0-0.2) K/mcL Platelet Estimate Marked Decrease L (Normal) PT 14.1 H (9.4-12.1) Seconds INR 1.3 APTT 32.7 (26.0-36.0) Seconds Sodium (136-145) mEq/L Potassium (3.5-4.5) mEq/L Chloride (98-109) mEq/L Carbon Dioxide (19-29) mEq/L BUN (7-20) mg/dL Creatinine (0.57-1.11) mg/dL Est GFR ( Amer) (> 60) Est GFR (Non-Af Amer) (> 60) BUN/Creatinine Ratio (6-26) Glucose (70-99) mg/dL Calculated Osmolality (280-300) Calcium (8.6-10.8) mg/dL Troponin I (0-0.03) ng/mL B-Natriuretic Peptide 13 (0-100) pg/mL 03/15/17 03/15/17 Range/Units 17:34 17:34 WBC (4.3-11.1) K/mcL RBC (3.82-4.97) M/mcL Hgb (11.5-15.4) g/dL Hct (35.3-44.9) % MCV (83.0-100.0) fL MCH (28.0-33.3) pg MCHC (31.6-35.5) g/dL RDW (11.5-14.5) % Plt Count (140-400) K/mcL MPV (9.4-12.4) fL Seg Neutrophils % % Band Neutrophils % (0-4) % Lymphocytes % % Monocytes % % Eosinophils % % Basophils % % Neutrophils # (1.6-8.9) K/mcL Lymphocytes # (0.6-4.6) K/mcL Monocytes # (0.0-1.3) K/mcL Eosinophils # (0.0-0.6) K/mcL Basophils # (0.0-0.2) K/mcL Platelet Estimate (Normal) PT (9.4-12.1) Seconds INR APTT (26.0-36.0) Seconds Sodium 141 (136-145) mEq/L Potassium 3.8 (3.5-4.5) mEq/L Chloride 106 (98-109) mEq/L Carbon Dioxide 28 (19-29) mEq/L BUN 11 (7-20) mg/dL Creatinine 0.72 (0.57-1.11) mg/dL Est GFR ( Amer) > 60 (> 60) Est GFR (Non-Af Amer) > 60 (> 60) BUN/Creatinine Ratio 15 (6-26) Glucose 158 H (70-99) mg/dL Calculated Osmolality 295 (280-300) Calcium 8.9 (8.6-10.8) mg/dL Troponin I 0.00 (0-0.03) ng/mL B-Natriuretic Peptide (0-100) pg/mL - Radiology Data Radiology results reviewed: Yes I reviewed the patient's radiology results. - EKG Data EKG attestation: Yes I reviewed and interpreted this EKG. EKG results narrative: NSR, rate 91, IN interval 160, QRS duration 93, QT/QTC 379/427, poor R wave progression, LVH, no significant changes from prior xray on 01/31/17 EKG shows normal: sinus rhythm Interpretation: no acute changes - Core Measures AMI Core Measures Followed: Yes Heart Score - Score History: Slightly Suspicious EKG: Non Specific repolarisation Disturbance Age: 45-65 Risk Factors: Equal/Greater than 3 risk factor or history of atherosclerotic disease Troponin: Less than normal limit HEART Score Total: 4
[2017-03-15 17:43] LABS: Hematocrit 33.8 % (35.3-44.9); Hemoglobin 10.8 g/dL (11.5-15.4); Lymphocytes # 0.4 K/mcL (0.6-4.6); Mean Corpuscular Hemoglobin 27.1 pg (28.0-33.3); Mean Corpuscular Volume 84.7 fL (83.0-100.0); Mean Platelet Volume 11.3 fL (9.4-12.4); Neutrophils # 1.2 K/mcL (1.6-8.9); Red Blood Count 3.99 M/mcL (3.82-4.97); Red Cell Distribution Width 14.9 % (11.5-14.5)
[2017-03-15 17:44] LABS: Platelet Count 43 K/mcL (140-400)
[2017-03-15 17:53] LABS: INR 1.3; Prothrombin Time 14.1 Seconds (9.4-12.1)
[2017-03-15 17:55] LABS: Activated Partial Thrombo Time 32.7 Seconds (26.0-36.0); BUN/Creatinine Ratio 15 (6-26); Blood Urea Nitrogen 11 mg/dL (7-20); Calcium 8.9 mg/dL (8.6-10.8); Carbon Dioxide 28 mEq/L (19-29); Chloride 106 mEq/L (98-109); Glucose 158 mg/dL (70-99); Osmolality,Calculated 295 (280-300); Potassium 3.8 mEq/L (3.5-4.5); Sodium 141 mEq/L (136-145); eGFR For African Americans > 60 (> 60); eGFR For Non-African Americans > 60 (> 60)
[2017-03-15 18:09] LABS: Monocytes # 0.1 K/mcL (0.0-1.3); Platelet Estimate Marked Decrease (Normal)
[2017-03-15] MEDS ORDERED: Ipratropium/Albuterol Neb 3 ML IH PRN (21:34)
[2017-03-15] MEDS ORDERED: Lactulose Oral Soln 20 GM/30 ML UDC RC SCH (21:34)
[2017-03-15] MEDS ORDERED: *HR* LORazepam 0.5 MG TABLET PO PRN (21:34)
[2017-03-15] MEDS ORDERED: Nitroglycerin 0.4 MG TAB.SUBL SL PRN (21:34)
[2017-03-15] MEDS ORDERED: *HR* Morphine 2 MG/ML SYRINGE IVP PRN (21:41)
[2017-03-15] MEDS ORDERED: Ondansetron 4 MG/2 ML VIAL IVP PRN (21:41)
[2017-03-15] MEDS ORDERED: Acetaminophen 325 MG TABLET PO PRN (21:41)
[2017-03-15] MEDS ORDERED: Naloxone 0.4 MG/ML INJ IVP PRN (21:41)
[2017-03-15] MEDS ORDERED: *HR* OxyCODONE Immed Rel 5 MG TABLET PO PRN (21:41)
--- NOTE | 2017-03-15 21:47 | Internal Med History&Physical ---
Date of Encounter: 03/15/17 Time of Encounter: 21:46 Assessment and Plan (1) Chest pain Current visit: No Status: Acute Possible Stable angina Continue telemetry, aspirin, Ranexa and Imdur Cardiology consult, monitor troponins Omeprazole for GI prophylaxis and sequential compression devices for DVT prophylaxis. The patient will be admitted for observation. Full code. Time spent on this admission 45 minutes. Qualifiers: Chest pain type: unspecified Qualified Code(s): R07.9 - Chest pain, unspecified (2) Ascites Current visit: Yes Status: Acute Severe ascites due to cirrhosis Increase dose of Lasix to 40 mg IV twice a day Start spironolactone Schedule a diagnostic and therapeutic paracentesis for the morning by interventional radiology team Strict I's and O's and daily weight Qualifiers: Ascites type: other type Qualified Code(s): R18.8 - Other ascites (3) Bronchitis Current visit: Yes Status: Acute Possible acute bacterial bronchitis Start Rocephin was Unclear exposure to meningitis, continue droplet precautions The patient is asymptomatic at the moment, consider lumbar puncture if she becomes symptomatic (4) Cirrhosis Current visit: No Status: Acute Continue lactulose Qualifiers: Hepatic cirrhosis type: other cirrhosis Qualified Code(s): K74.69 - Other cirrhosis of liver (5) SIMON (nonalcoholic steatohepatitis) Current visit: No Status: Chronic (6) Pancytopenia Current visit: No Status: Chronic (7) T2DM (type 2 diabetes mellitus) Current visit: No Status: Chronic Continue using insulin pump Qualifiers: Diabetes mellitus complication status: without complication Diabetes mellitus exterminator insulin use: with exterminator use Qualified Code(s): E11.9 - Type 2 diabetes mellitus without complications; 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 During her last hospitalization her doses of Imdur and Ranexa were increased. Cardiology saw her and recommended only medical management. The patient describes the pain as pressure-like mostly on her left side 5 out of 10 in intensity radiating to the left shoulder blade. Also, she has been complaining of shortness of breath and has been bringing up yellowish phlegm, chest x-ray does not show any acute cardiopulmonary disease. She says she was exposed to meningitis 2 weeks ago as her sister's granddaughter was diagnosed with this, unfortunately they do not know the etiology whether it was viral or bacterial. The patient denies any photophobia , headaches or neck rigidity at the moment. Her abdomen has been more swollen and she has gained 15 pounds in the past 2 weeks. White blood cell count is 1.8 and platelets are 43 but she has history of chronic pancytopenia. 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) Psychiatric history: anxiety - Past Surgical History Surgical History: hysterectomy, other (Tonsillectomy, normal stress test in ) - Social History Smoking Status: Never smoker Smokeless Tobacco Status: No Alcohol use: none Drug use: none - Family History Mother Living Status: Hx Family Cardiac Disorders: Yes (CAD) Hx Family Respiratory Disorders: Yes Father Living Status: Hx Family Cardiac Disorders: Yes - Additional Family History Additional family history: Father with a myocardial infarction at the age of 41 , brother and sister with diabetes and mother with laryngeal cancer Internal Medicine - H&P: Meds Amitriptyline [Elavil] 10 mg PO HS 12/31/15 [History] Furosemide [Lasix] 40 mg PO DAILY 12/31/15 [History] LORazepam [Ativan] 0.5 mg PO DAILY PRN 12/31/15 [History] Lactulose 30 ml PO DAILY PRN 12/31/15 [History] Lisinopril-HCTZ 20-12.5 [Prinzide 20-12.5] 1 tab PO BID 12/31/15 [History] Loratadine [Claritin] 10 mg PO DAILY 12/31/15 [History] Nitroglycerin [Nitrostat] 0.4 mg SL Q5M PRN 12/31/15 [History] Omeprazole [PriLOSEC] 40 mg PO BID 12/31/15 [History] Ranitidine HCl [Zantac] 150 mg PO HS 12/31/15 [History] metFORMIN [Glucophage] 1,000 mg PO BIDWM 12/31/15 [History] traMADol [Ultram] 50 mg PO Q6HR PRN 12/31/15 [History] Rosuvastatin Calcium [Crestor] 20 mg PO HS 09/11/16 [History] Albuterol Sulfate [Ventolin Hfa] 2 puff IH Q4H PRN 01/31/17 [History] Aspirin 81 mg PO DAILY 01/31/17 [History] Fluticasone Propionate Nasal [Flonase] 1 spray NS DAILY PRN 01/31/17 [History] Fluticasone/Vilanterol [Breo Ellipta 100-25 Mcg INH] 1 puff IH DAILY 01/31/17 [ History] Gabapentin [Neurontin] 100 mg PO BID 01/31/17 [History] Ipratropium/Albuterol Neb [Duoneb] 3 ml IH Q6HR PRN 01/31/17 [History] Meclizine HCl [Verticalm] 25 mg PO DAILY PRN 01/31/17 [History] Melatonin 9 mg PO HS 01/31/17 [History] Multivitamin [One Daily Essential] 1 tab PO DAILY 01/31/17 [History] Isosorbide MONOnitrate (24 HR) [Imdur] 90 mg PO DAILY #90 tab.er.24h 02/03/17 [ Rx] Ranolazine [Ranexa] 1,000 mg PO BID #120 tab.er.12h 02/03/17 [Rx] Metoprolol [Lopressor] 50 mg PO BID 03/15/17 [History] Subcutaneous Insulin Pump [T:Slim] 1 each MC AD PRN 03/15/17 [History] Allergies atorvastatin [From Lipitor] Allergy (Verified 02/08/17 09:49) Muscle Pain Hydroxychloroquine [From Plaquenil] Allergy (Verified 02/08/17 09:49) Hives escitalopram [From Lexapro] Adverse Reaction (Verified 02/08/17 09:49) See Comments Patient states it didn't work. All Systems PM: A 10-system review of systems was performed and is negative for pertinent findings except as documented above in the HPI. Review of systems: Complains of chest pain and shortness of breath. Other systems out of the 10 reviewed were negative EKG is unremarkable - Constitutional Vitals: Temp Pulse Resp BP Pulse Ox 98.2 F 90 17 143/74 95 03/15/17 21:08 03/15/17 21:08 03/15/17 21:08 03/15/17 21:08 03/15/17 21:08 General appearance: Present: A&O X 3 - Head Head exam: Present: atraumatic, normocephalic - Eye Eye exam: Present: PERRL, conjuntiva pink, sclera anicteric Pupils: Present: PERRL - Neck Neck exam general surgery: Present: supple, trachea midline. Absent: lymphadenopathy - Respiratory Respiratory exam: Present: CTAB. Absent: accessory muscle use, rales, rhonchi, wheezes - Cardiovascular Cardiovascular exam: Present: RRR, +S1, +S2. Absent: diastolic murmur, gallop, rubs, systolic murmur - GI/Abdominal GI/Abdominal exam: Present: distended (Severe ascites, no tenderness), normal bowel sounds, soft, no peritoneal signs. Absent: tenderness - Extremities Exam Extremities exam: Present: warm, radial pulses palpable and symetrical. Absent : calf tenderness, cyanotic, pedal edema - Neurological Exam Neurological exam: Present: CN II-XII intact, oriented X3, no focal deficits. Absent: pronater drift, facial droop, speech deficit - Skin Skin exam: Present: dry, intact Internal Med - H&P Results - Labs CBC & Chem 7: 03/15/17 17:34 03/15/17 17:34
[2017-03-15] MEDS: Ranolazine 500 MG TAB.ER.12H PO SCH (23:09)
[2017-03-15] MEDS: Furosemide 40 MG/4 ML VIAL IVP SCH (23:09)
[2017-03-15] MEDS: Lactulose Oral Soln 20 GM/30 ML UDC PO SCH (23:10)
[2017-03-16 05:03] LABS: BUN/Creatinine Ratio 13 (6-26); Blood Urea Nitrogen 12 mg/dL (7-20); Calcium 8.6 mg/dL (8.6-10.8); Carbon Dioxide 28 mEq/L (19-29); Chloride 102 mEq/L (98-109); Glucose 384 mg/dL (70-99); Osmolality,Calculated 302 (280-300); Potassium 3.6 mEq/L (3.5-4.5); Sodium 138 mEq/L (136-145); eGFR For African Americans > 60 (> 60); eGFR For Non-African Americans > 60 (> 60)
[2017-03-16] MEDS ORDERED: D5% in Water 1,000 ML IVC PRN (08:24)
[2017-03-16] MEDS ORDERED: *HR* Dextrose 50 % in Water (Syg) 50 ML SYRINGE IVP PRN (08:24)
[2017-03-16] MEDS ORDERED: Dextrose Gel 15 GM PO PRN ×2 (08:24)
[2017-03-16] MEDS ORDERED: Insulin DETEMIR 100 UNIT/ML X5UNITS SQ SCH (09:00)
--- NOTE | 2017-03-16 09:40 | IR Procedure Note ---
Date of procedure: 03/16/17 Consent Obtained: Verbal consent Timeout: Correct patient and procedure verified, Correct site verified, Time out performed, Skin prep completed Local anesthetic: Lidocaine 1% Indications: Ascites Procedure Performed: Paracentesis Site/Technique: US guided paracentesis Results/Findings: Moderate ascites Estimated blood loss (cc): 1 Complications: None; Tolerated procedure well Post Procedure Treatment Plan: Continue inpatient care
[2017-03-16] MEDS: Aspirin 81 MG TAB.CHEW PO SCH (10:22)
[2017-03-16] MEDS: Ranolazine 500 MG TAB.ER.12H PO SCH ×2 (10:22→20:29)
[2017-03-16] MEDS: Spironolactone 25 MG TABLET PO SCH (10:22)
[2017-03-16] MEDS: Gabapentin 100 MG CAPSULE PO SCH ×2 (10:22→20:28)
[2017-03-16] MEDS: Lisinopril-HCTZ 20-12.5mg TABLET PO SCH ×2 (10:22→20:28)
[2017-03-16] MEDS: Isosorbide MONOnitrate (24 HR) 30 MG TAB.ER.24H PO SCH (10:22)
[2017-03-16] MEDS: Furosemide 40 MG/4 ML VIAL IVP SCH ×2 (10:23→20:29)
[2017-03-16] MEDS: Lactulose Oral Soln 20 GM/30 ML UDC PO SCH (10:23)
[2017-03-16] MEDS: Insulin LISPRO 300 UNITS/3 ML VIAL SQ SCH ×3 (10:24→17:26)
--- NOTE | 2017-03-16 11:08 | Cardiology Consult Note ---
Date of Encounter: 03/16/17 Time of Encounter: 11:03 Assessment and Plan (1) Chest pain Current Visit: Yes Status: Acute Atypical chest pain symptoms likely aggravated by body aches from current illness. Troponin negative x 3. Stress test one month ago was negative for ischemia. TTE 01/2017 showed preserved EF. She is not a candidate for invasive evaluation in the setting of thrombocytopenia and c/o blood in her stool and urine. No further cardiac testing recommended. Increase metoprolol for anti-anginal effects. Imdur recently increased and she c /o mild headache. Qualifiers: Chest pain type: unspecified Qualified Code(s): R07.9 - Chest pain, unspecified (2) CAD (coronary artery disease) Current Visit: No Status: Chronic S/p PCI to her LAD in 2013. Last [facility] 03/31/2016-EF 50%, severe small vessel disease. There was a 40% in- stent restenosis in the mid LAD, 30% stenosis in the proximal circumflex artery , 30% stenosis in the mid RCA, and 80% stenosis in the PDA (small vessel.) Continue asa, statin, bb, imdur, and ranexa. Qualifiers: Coronary Disease-Associated Artery/Lesion type: [place] artery [place] vs. transplanted heart: [place] heart Associated angina: with stable angina Qualified Code(s): I25.118 - Atherosclerotic heart disease of [place] coronary artery with other forms of angina pectoris Discussion w patient/family: The assessment and plan as outlined above was discussed with the patient and/or family members who expressed understanding and agreement. All questions were answered. Thank you for involving us in the care of your patient. Please call with any questions. History of Present Illness Consult date: 03/16/17 Requesting physician: Danilo Keane Consult reason: Chest pain Chief complaint: nausea and body aches. History of present illness: Ms. Morgan is a 62 year old female who presents with the c/o nausea, body aches, increased abdominal girth, and chest pain over the past week. She reports recent exposure to a granddaughter who was diagnosed with meningitis. She admits to mid-sternal sharp pains radiating to her back. Denies aggravating factors but the pain did occur with full body aches. Cardiology consulted for chest pain. She has a past medical history of CAD s/p previous PCI, chronic angina, SIMON, thrombocytopenia, LANI, asthma, and diabetes type II. She was seen in January of this year for chest pain. She underwent a two day stress test that was negative for ischemia. She was seen in the cardiology office for recurrent chest pain and medical management was recommended d/t thrombocytopenia and c/o blood in her stools. Her imdur was increased at that time. She is currently pain free. She was scheduled to have paracentesis in the out=pt setting for ascites. She is planning to undergo paracentesis with IR today. previous cardiac testing: [facility] 03/31/2016-EF 50%, severe small vessel disease. There was a 40% in-stent restenosis in the mid LAD, 30% stenosis in the proximal circumflex artery, 30% stenosis in the mid RCA, and 80% stenosis in the PDA (small vessel.) TTE 02/03/17- EF 60-65%, normal RV funtion and size. Limited study. TTE 09/2016-EF 65%, no significant valvular disease. Past Med Surg Social Fam HX - Past Medical History Attestation: Yes The following information was validated with the patient. 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) Psychiatric history: anxiety - Past Surgical History Surgical History: hysterectomy, other (Tonsillectomy, normal stress test in ) - Social History Smoking Status: Never smoker Smokeless Tobacco Status: No Alcohol use: none Drug use: none - Family History Mother Living Status: Hx Family Cardiac Disorders: Yes (CAD) Hx Family Respiratory Disorders: Yes Father Living Status: Hx Family Cardiac Disorders: Yes Medications and Allergies Amitriptyline [Elavil] 10 mg PO HS 12/31/15 [History] Furosemide [Lasix] 40 mg PO DAILY 12/31/15 [History] LORazepam [Ativan] 0.5 mg PO DAILY PRN 12/31/15 [History] Lactulose 30 ml PO DAILY PRN 12/31/15 [History] Lisinopril-HCTZ 20-12.5 [Prinzide 20-12.5] 1 tab PO BID 12/31/15 [History] Loratadine [Claritin] 10 mg PO DAILY 12/31/15 [History] Nitroglycerin [Nitrostat] 0.4 mg SL Q5M PRN 12/31/15 [History] Omeprazole [PriLOSEC] 40 mg PO BID 12/31/15 [History] Ranitidine HCl [Zantac] 150 mg PO HS 12/31/15 [History] metFORMIN [Glucophage] 1,000 mg PO BIDWM 12/31/15 [History] traMADol [Ultram] 50 mg PO Q6HR PRN 12/31/15 [History] Rosuvastatin Calcium [Crestor] 20 mg PO HS 09/11/16 [History] Albuterol Sulfate [Ventolin Hfa] 2 puff IH Q4H PRN 01/31/17 [History] Aspirin 81 mg PO DAILY 01/31/17 [History] Fluticasone Propionate Nasal [Flonase] 1 spray NS DAILY PRN 01/31/17 [History] Fluticasone/Vilanterol [Breo Ellipta 100-25 Mcg INH] 1 puff IH DAILY 01/31/17 [ History] Gabapentin [Neurontin] 100 mg PO BID 01/31/17 [History] Ipratropium/Albuterol Neb [Duoneb] 3 ml IH Q6HR PRN 01/31/17 [History] Meclizine HCl [Verticalm] 25 mg PO DAILY PRN 01/31/17 [History] Melatonin 9 mg PO HS 01/31/17 [History] Multivitamin [One Daily Essential] 1 tab PO DAILY 01/31/17 [History] Isosorbide MONOnitrate (24 HR) [Imdur] 90 mg PO DAILY #90 tab.er.24h 02/03/17 [ Rx] Ranolazine [Ranexa] 1,000 mg PO BID #120 tab.er.12h 02/03/17 [Rx] Metoprolol [Lopressor] 50 mg PO BID 03/15/17 [History] Subcutaneous Insulin Pump [T:Slim] 1 each MC AD PRN 03/15/17 [History] Allergies atorvastatin [From Lipitor] Allergy (Verified 02/08/17 09:49) Muscle Pain Hydroxychloroquine [From Plaquenil] Allergy (Verified 02/08/17 09:49) Hives escitalopram [From Lexapro] Adverse Reaction (Verified 02/08/17 09:49) See Comments Patient states it didn't work. All Systems Review: A 10-system review of systems was performed and is negative for pertinent findings except as documented above in the HPI. Physical Examination General: Conversant, No Apparent Distress HEENT: Atraumatic, Normocephaly, Mucus Membranes Moist Neck: No JVD, Normal carotid pulses Cardiac: Reg Rate and Rhythm, Normal S1 and S2, No Murmur Lungs: Normal Breath Sounds, No Wheeze, Rales, Rhonchi Neuro: Alert and responsive, No focal deficits noted Abdomen: Soft, Other (distended and mildly tender.) Skin: No rashes noted on visualized skin Musculoskeletal: No Chest Wall Tenderness Extremities: No Clubbing, No Cyanosis, No Edema, Normal Pulses Results 03/15/17 17:34 03/16/17 04:17 Lab Results 03/15/17 03/16/17 03/16/17 21:57 04:17 04:17 Sodium 138 Potassium 3.6 Chloride 102 Carbon Dioxide 28 BUN 12 Creatinine 0.90 Glucose 384 H Calcium 8.6 Troponin I 0.00 0.00 03/16/17 10:07 Sodium Potassium Chloride Carbon Dioxide BUN Creatinine Glucose Calcium Troponin I 0.01 - Imaging and Cardiology Stress Test: report reviewed Echo: report reviewed Cardiac cath: report reviewed Consult Discharge Plan - Plan Referrals: Robles Oliveira MD [Primary Care Provider] -
--- NOTE | 2017-03-16 11:21 | Electrocardiograph Report ---
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
[2017-03-16] MEDS ORDERED: *HR* OxyCODONE Immed Rel 5 MG TABLET PO PRN (11:53)
[2017-03-16 12:01] LABS: Basophils % 0.5 %; Hemoglobin 10.3 g/dL (11.5-15.4)
[2017-03-16 12:03] LABS: Eosinophils % 1.5 %; Hematocrit 32.7 % (35.3-44.9); Lymphocytes # 0.4 K/mcL (0.6-4.6); Lymphocytes % 19.6 %; Mean Corpuscular HGB Conc 31.5 g/dL (31.6-35.5); Mean Corpuscular Hemoglobin 27.2 pg (28.0-33.3); Mean Corpuscular Volume 86.3 fL (83.0-100.0); Mean Platelet Volume 11.3 fL (9.4-12.4); Monocytes # 0.3 K/mcL (0.0-1.3); Monocytes % 13.4 %; Red Blood Count 3.79 M/mcL (3.82-4.97); Red Cell Distribution Width 15.3 % (11.5-14.5)
[2017-03-16 12:33] LABS: Neutrophils # 1.2 K/mcL (1.6-8.9); Platelet Count 42 K/mcL (140-400)
[2017-03-16 12:51] LABS: Glucose,Peritoneal Fluid 358 mg/dL (No Ref Range); LDH,Peritoneal Fluid 50 Units/L (No Ref Range); Total Protein,Peritoneal Fluid 1.3 g/dL (No Ref Range)
[2017-03-16 13:08] LABS: RBC,Peritoneal Fluid < 0.002 M/mcL
--- NOTE | 2017-03-16 15:27 | Internal Med Progress Note ---
Date of Encounter: 03/16/17 Time of Encounter: 10:50 - Assessment and plan (1) Ascites Current Visit: Yes Status: Acute Assessment and plan: Status post-paracentesis with improvement in symptoms. Fluid analysis appears to show transudative fluid. No signs of peritonitis at this time. Qualifiers: Ascites type: other type Qualified Code(s): R18.8 - Other ascites (2) Bronchitis Current Visit: Yes Status: Acute Assessment and plan: Continues to have some cough. On Rocephin. Transition to oral antibiotics tomorrow if patient continues to improve (3) CAD (coronary artery disease) Current Visit: No Status: Chronic Assessment and plan: With some chest pain. Likely stable angina. Cardiology consulted. Recommend increasing metoprolol dosage. No further workup recommended at this time. Outpatient follow-up with cardiology after discharge in 2-3 weeks Qualifiers: Coronary Disease-Associated Artery/Lesion type: [place] artery [place] vs. transplanted heart: [place] heart Associated angina: with stable angina Qualified Code(s): I25.118 - Atherosclerotic heart disease of [place] coronary artery with other forms of angina pectoris (4) Chest pain Current Visit: No Status: Acute Assessment and plan: Treated with nitroglycerin. Troponins negative. Increase metoprolol dosage for cardiology recommendations Qualifiers: Chest pain type: precordial pain Qualified Code(s): R07.2 - Precordial pain (5) Cirrhosis Current Visit: Yes Status: Chronic Assessment and plan: From nonalcoholic steatohepatitis. Supportive care. Paracentesis is done today. Qualifiers: Hepatic cirrhosis type: other cirrhosis Qualified Code(s): K74.69 - Other cirrhosis of liver (6) SIMON (nonalcoholic steatohepatitis) Current Visit: No Status: Chronic (7) Pancytopenia Current Visit: No Status: Chronic Assessment and plan: Remains pancytopenic but stable. Avoid medical anticoagulation due to thrombocytopenia. (8) T2DM (type 2 diabetes mellitus) Current Visit: Yes Status: Chronic Assessment and plan: Patient's insulin pump was malfunctioning. We will instead place patient on basal bolus regimen. Monitor blood sugars closely. Currently blood sugars are very uncontrolled. Qualifiers: Diabetes mellitus complication status: without complication Diabetes mellitus skilled nursing insulin use: with skilled nursing use Qualified Code(s): E11.9 - Type 2 diabetes mellitus without complications; Z79.4 - joint terminal attack controller (current) use of insulin - Subjective Interval history: Patient underwent paracentesis today with removal of about 4 L of ascitic fluid that appeared transudative. She is feeling much better after the procedure and is able to breathe better. Denies any fever chills or night sweats overnight. Still has some shortness of breath. Has persistent chest pain that feels like a pressure in the central chest location. - Constitutional Vitals: Temp Pulse Resp BP Pulse Ox 98.0 F 70 16 112/66 94 03/16/17 11:59 03/16/17 11:59 03/16/17 11:59 03/16/17 11:59 03/16/17 11:59 General appearance: Present: cooperative, mild distress, A&O X 3, pleasant, answers questions appropriately - Respiratory Respiratory exam: Present: CTAB. Absent: accessory muscle use, rales, rhonchi, wheezes - Cardiovascular Cardiovascular exam: Present: RRR, +S1, +S2. Absent: diastolic murmur, gallop, rubs, systolic murmur - GI/Abdominal GI/Abdominal exam: Present: normal bowel sounds, soft, tenderness (At site of paracentesis ), no peritoneal signs. Absent: distended - Extremities Exam Extremities exam: Present: warm, radial pulses palpable and symetrical. Absent : calf tenderness, cyanotic, pedal edema - Neurological Exam Neurological exam: Present: alert, oriented X3, no focal deficits. Absent: facial droop, speech deficit - Skin Skin exam: Present: dry, intact Internal Medicine: Result - Labs CBC & Chem 7: 03/16/17 04:17 03/16/17 04:17 Labs: Short CBC 03/16/17 Range/Units 04:17 WBC 1.9 L (4.3-11.1) K/mcL Hgb 10.3 L (11.5-15.4) g/dL Hct 32.7 L (35.3-44.9) % Plt Count 42 L (140-400) K/mcL Neutrophils # 1.2 L (1.6-8.9) K/mcL BMP 03/16/17 04:17 Sodium 138 Potassium 3.6 Chloride 102 Carbon Dioxide 28 BUN 12 Creatinine 0.90 Glucose 384 H Calcium 8.6 Cardiac Enzymes 03/15/17 03/16/17 03/16/17 Range/Units 21:57 04:17 10:07 Troponin I 0.00 0.00 0.01 (0-0.03) ng/mL - ABG Interpretation ABG results: PT/INR, D-dimer PT 14.1 Seconds (9.4-12.1) H 03/15/17 17:34 - Impressions Impressions Paracentesis Ultrasound 03/16/17 00:00 IMPRESSION: Successful ultrasound guided paracentesis. D/ / Arron Lai MD / Arron Lai MD Interpreting Provider: Arron Lai MD - VTE Documentation of Mechanical Device: Intermittent pneumatic compression device Consult Discharge Plan - Plan Referrals: Robles Oliveira MD [Primary Care Provider] - - Attending Attestation This document has been at least partially created by [employer] voice recognition technology by Dr. Estrada. Errors in grammar, wording or other phrases may exist. If errors are found after the documentation is signed, they will be addressed individually in the addendum section of this document when appropriate.
[2017-03-16] MEDS ORDERED: Azithromycin 500 MG in D5% in Water 250 ML IVPB SCH (16:00)
[2017-03-16 19:11] LABS: Appearance of Peritoneal Fl CLEAR (Clear)
[2017-03-16] MEDS: Metoprolol 100 MG TABLET PO SCH (20:28)
[2017-03-16] MEDS ORDERED: Insulin LISPRO 300 UNITS/3 ML VIAL SQ SCH (21:00)
[2017-03-17 05:51] LABS: Basophils % 0.5 %; Hemoglobin 9.8 g/dL (11.5-15.4); Immature Granulocytes % 0.5 % (0-4); Red Cell Distribution Width 15.2 % (11.5-14.5)
[2017-03-17 05:53] LABS: Eosinophils % 1.9 %; Hematocrit 30.2 % (35.3-44.9); Lymphocytes # 0.5 K/mcL (0.6-4.6); Lymphocytes % 21.7 %; Mean Corpuscular HGB Conc 32.5 g/dL (31.6-35.5); Mean Corpuscular Hemoglobin 27.8 pg (28.0-33.3); Mean Corpuscular Volume 85.6 fL (83.0-100.0); Mean Platelet Volume 11.7 fL (9.4-12.4); Monocytes # 0.2 K/mcL (0.0-1.3); Monocytes % 10.1 %; Neutrophils # 1.4 K/mcL (1.6-8.9); Red Blood Count 3.53 M/mcL (3.82-4.97); Segmented Neutrophils % 65.3 %
[2017-03-17 06:00] LABS: Platelet Count 42 K/mcL (140-400)
[2017-03-17 06:07] LABS: BUN/Creatinine Ratio 18 (6-26); Blood Urea Nitrogen 18 mg/dL (7-20); Calcium 8.4 mg/dL (8.6-10.8); Carbon Dioxide 31 mEq/L (19-29); Chloride 100 mEq/L (98-109); Glucose 336 mg/dL (70-99); Osmolality,Calculated 303 (280-300); Potassium 3.7 mEq/L (3.5-4.5); Sodium 139 mEq/L (136-145); eGFR For African Americans > 60 (> 60); eGFR For Non-African Americans 57 (> 60)
[2017-03-17 07:10] VITALS: BP 101/63
[2017-03-17] MEDS ORDERED: *HR* Midazolam HCl 2 MG/2 ML VIAL ONE (07:41)
[2017-03-17] MEDS ORDERED: *HR* FentaNYL (PF) 100 MCG/2 ML VIAL ONE (07:41)
[2017-03-17] MEDS ORDERED: *HR* Propofol 200 MG/20 ML VIAL IVP ONE (07:42)
[2017-03-17] MEDS ORDERED: Insulin LISPRO 300 UNITS/3 ML VIAL SQ SCH ×3 (07:42→08:10)
[2017-03-17] MEDS: Isosorbide MONOnitrate (24 HR) 30 MG TAB.ER.24H PO SCH (08:14)
[2017-03-17] MEDS: Gabapentin 100 MG CAPSULE PO SCH (08:14)
[2017-03-17] MEDS: Metoprolol 100 MG TABLET PO SCH (08:15)
[2017-03-17] MEDS: Aspirin 81 MG TAB.CHEW PO SCH (08:15)
[2017-03-17] MEDS: Furosemide 40 MG/4 ML VIAL IVP SCH (08:15)
[2017-03-17] MEDS: Spironolactone 25 MG TABLET PO SCH (08:15)
[2017-03-17] MEDS: Ranolazine 500 MG TAB.ER.12H PO SCH (08:15)
[2017-03-17] MEDS: Lisinopril-HCTZ 20-12.5mg TABLET PO SCH (08:15)
[2017-03-17] MEDS: Lactulose Oral Soln 20 GM/30 ML UDC PO SCH (08:17)
[2017-03-17] MEDS ORDERED: Insulin DETEMIR 100 UNIT/ML X5UNITS SQ SCH (09:00)
--- NOTE | 2017-03-17 10:23 | Discharge Summary ---
Date of Encounter: 03/17/17 Time of Encounter: 08:20 - Discharge Diagnosis (1) Ascites Priority: Primary Status: Acute Qualifiers: Ascites type: other type Qualified Code(s): R18.8 - Other ascites (2) Bronchitis Priority: Secondary Status: Acute (3) CAD (coronary artery disease) Priority: Secondary Status: Chronic Qualifiers: Coronary Disease-Associated Artery/Lesion type: [place] artery [place] vs. transplanted heart: [place] heart Associated angina: with stable angina Qualified Code(s): I25.118 - Atherosclerotic heart disease of [place] coronary artery with other forms of angina pectoris (4) Chest pain Priority: Secondary Status: Acute Qualifiers: Chest pain type: precordial pain Qualified Code(s): R07.2 - Precordial pain (5) Cirrhosis Priority: Secondary Status: Chronic Qualifiers: Hepatic cirrhosis type: other cirrhosis Qualified Code(s): K74.69 - Other cirrhosis of liver (6) SIMON (nonalcoholic steatohepatitis) Priority: Secondary Status: Chronic (7) Pancytopenia Priority: Secondary Status: Chronic (8) T2DM (type 2 diabetes mellitus) Priority: Secondary Status: Chronic Qualifiers: Diabetes mellitus complication status: without complication Diabetes mellitus termite exterminator insulin use: with termite exterminator use Qualified Code(s): E11.9 - Type 2 diabetes mellitus without complications; Z79.4 - nursing home (current) use of insulin - Discharge Medications Prescriptions: Azithromycin [Zithromax] 500 mg PO Q24H #10 tablet Metoprolol [Lopressor] 100 mg PO BID #60 tablet Home Medications: Amitriptyline [Elavil] 10 mg PO HS 12/31/15 [History] Furosemide [Lasix] 40 mg PO DAILY 12/31/15 [History] LORazepam [Ativan] 0.5 mg PO DAILY PRN 12/31/15 [History] Lactulose 30 ml PO DAILY PRN 12/31/15 [History] Lisinopril-HCTZ 20-12.5 [Prinzide 20-12.5] 1 tab PO BID 12/31/15 [History] Loratadine [Claritin] 10 mg PO DAILY 12/31/15 [History] Nitroglycerin [Nitrostat] 0.4 mg SL Q5M PRN 12/31/15 [History] Omeprazole [PriLOSEC] 40 mg PO BID 12/31/15 [History] Ranitidine HCl [Zantac] 150 mg PO HS 12/31/15 [History] metFORMIN [Glucophage] 1,000 mg PO BIDWM 12/31/15 [History] traMADol [Ultram] 50 mg PO Q6HR PRN 12/31/15 [History] Rosuvastatin Calcium [Crestor] 20 mg PO HS 09/11/16 [History] Albuterol Sulfate [Ventolin Hfa] 2 puff IH Q4H PRN 01/31/17 [History] Aspirin 81 mg PO DAILY 01/31/17 [History] Fluticasone Propionate Nasal [Flonase] 1 spray NS DAILY PRN 01/31/17 [History] Fluticasone/Vilanterol [Breo Ellipta 100-25 Mcg INH] 1 puff IH DAILY 01/31/17 [ History] Gabapentin [Neurontin] 100 mg PO BID 01/31/17 [History] Ipratropium/Albuterol Neb [Duoneb] 3 ml IH Q6HR PRN 01/31/17 [History] Meclizine HCl [Verticalm] 25 mg PO DAILY PRN 01/31/17 [History] Melatonin 9 mg PO HS 01/31/17 [History] Multivitamin [One Daily Essential] 1 tab PO DAILY 01/31/17 [History] Isosorbide MONOnitrate (24 HR) [Imdur] 90 mg PO DAILY #90 tab.er.24h 02/03/17 [ Rx] Ranolazine [Ranexa] 1,000 mg PO BID #120 tab.er.12h 02/03/17 [Rx] Subcutaneous Insulin Pump [T:Slim] 1 each MC AD PRN 03/15/17 [History] Azithromycin [Zithromax] 500 mg PO Q24H #10 tablet 03/17/17 [Rx] Metoprolol [Lopressor] 100 mg PO BID #60 tablet 03/17/17 [Rx] Allergies/Adverse Reactions: Allergies Hydroxychloroquine [From Plaquenil] Allergy (Verified 02/08/17 09:49) Hives atorvastatin [From Lipitor] Adverse Reaction (Verified 03/16/17 12:53) Muscle Pain Procedures/tests Complete & Pending: Procedures Performed prior 72 hours Category Date Time Status IR paracentesis ultrasound [IR] Routine IR 03/16/17 Completed Date of admission: 03/15/17 18:49 Primary care physician: Thais Olson Consults: 03/15/17 21:38 Consult to Cardiology [CONS] Routine Comment: Consulting Provider: Melly Allen Reason for Consult: angina Call Completed: No Consult to Interventional Radiology [CONS] Routine Consulting Provider: Radiology Interventional Cols Reason for Consult: diagnostic and therapeutic paracentesis Call Completed: No Discharging clinician: Stan Estrada Anticipated date of discharge: 03/17/17 - Patient Status Disposition: Home, Self-Care Condition: Good Functional capacity at discharge: independent ambulation Overall status at discharge: patient is progressing back to baseline - Discharge Instructions Instructions: Chest Pain (DC) Follow Up With: Paul Cantu CNP [Advanced Practice Nurse] - 03/22/17 9:30 am () Additional Instructions: Follow-up with cardiology in 1-2 weeks - Diet and Activity Activity: increase activity as tolerated Diet: advance to your usual diet, diabetic diet, low fat, low cholesterol, low salt diet, other (Fluid restriction to 1.5 L per day) Hospital course: Ms. Morgan is a 62 year old female patient with history of nonalcoholic steatohepatitis and cirrhosis, diabetes mellitus, fibromyalgia, hypertension and hyperlipidemia and liver disease who was hospitalized here with chest pain. She was also having worsening abdominal pain and shortness of breath. She never had a paracentesis done before. Given her ascites and discomfort with shortness of breath, she underwent paracentesis with about 4 L of ascites fluid removed. On fluid analysis this appears to be transudative and related to cirrhosis. No signs of infection. She was also diagnosed with acute bacterial bronchitis and was treated with antibiotics for this. For her chest pain cardiology was consulted and her troponins were trended. Her troponins have been normal. Chest pain could be related to her history of hiatal hernia and symptoms associated with some nausea. Nevertheless, cardiology has increased the dosage of her metoprolol to treat any angina related pain. She will continue this new dosage and will follow up with cardiology for further management. She is presently feeling much better and is stable to be discharged home. - Time Spent with Patient Total time spent providing and/or coordinating discharge services: Less than 30 minutes (25 min) - Constitutional Vitals: Temp Pulse Resp BP Pulse Ox 97.7 F 68 16 101/63 95 03/17/17 07:09 03/17/17 07:09 03/17/17 07:09 03/17/17 07:09 03/17/17 08:30 General appearance: Present: cooperative, mild distress, A&O X 3, pleasant, answers questions appropriately - Respiratory Respiratory exam: Present: CTAB. Absent: accessory muscle use, rales, rhonchi, wheezes - Cardiovascular Cardiovascular exam: Present: RRR, +S1, +S2. Absent: diastolic murmur, gallop, rubs, systolic murmur - GI/Abdominal GI/Abdominal exam: Present: normal bowel sounds, soft, no peritoneal signs. Absent: distended, tenderness - Neurological Exam Neurological exam: Present: alert, oriented X3, no focal deficits. Absent: facial droop, speech deficit - VTE Documentation of Mechanical Device: Intermittent pneumatic compression device - Attending Attestation This document has been at least partially created by [employer] voice recognition technology by Dr. Estrada. Errors in grammar, wording or other phrases may exist. If errors are found after the documentation is signed, they will be addressed individually in the addendum section of this document when appropriate.
[2017-03-17] MEDS ORDERED: Azithromycin 250 MG TABLET PO SCH (16:00)
== END 2017-03-17 11:40 | disposition home or self-care (01) ==
LOC: EMEROO 15:59 → 2ANU 15:59
PROVIDERS: ADMIT Registered Nurse; ATTEND Internal Medicine

== ENCOUNTER 2017-06-23 14:59 | Inpatient (IN) ==
[2017-06-23 15:45] LABS: Hemoglobin 12.1 g/dL (11.5-15.4); Immature Granulocytes % 0.5 % (0-4)
[2017-06-23 15:47] LABS: Basophils % 0.9 %; Eosinophils % 1.4 %; Hematocrit 36.9 % (35.3-44.9); Immature Platelets 5.9 % (1.1-6.1); Lymphocytes # 0.6 K/mcL (0.6-4.6); Lymphocytes % 25.7 %; Mean Corpuscular HGB Conc 32.8 g/dL (31.6-35.5); Mean Corpuscular Hemoglobin 28.9 pg (28.0-33.3); Mean Corpuscular Volume 88.3 fL (83.0-100.0); Mean Platelet Volume 10.2 fL (9.4-12.4); Monocytes # 0.2 K/mcL (0.0-1.3); Monocytes % 7.8 %; Neutrophils # 1.4 K/mcL (1.6-8.9); Red Blood Count 4.18 M/mcL (3.82-4.97); Red Cell Distribution Width 15.6 % (11.5-14.5); Segmented Neutrophils % 63.7 %
[2017-06-23 15:48] LABS: Platelet Count 44 K/mcL (140-400)
[2017-06-23 15:53] LABS: Activated Partial Thrombo Time 32.9 Seconds (26.0-36.0)
--- NOTE | 2017-06-23 15:55 | Emergency Department Note ---
Disposition Clinical Impression: SIMON (nonalcoholic steatohepatitis) Chest pain Qualifiers: Chest pain type: unspecified Qualified Code(s): R07.9 - Chest pain, unspecified Ascites Qualifiers: Ascites type: other type Qualified Code(s): R18.8 - Other ascites Disposition: Admitted As Inpatient Condition: Good Referrals: Paul Cantu CNP [Primary Care Provider] - Forms: ED Satisfaction Letter General Adult HPI - General Chief complaint: ED Chest Pain Stated complaint: CP Time Seen by Provider: 06/23/17 15:16 Source: family Limitations: no limitations Nursing Notes Reviewed: Yes Vital Signs Reviewed: Yes - History of Present Illness HPI Narrative: 62 y/o female w/ PMH of SIMON/cirrhosis, CAD, HTN, HLD, DM, asthma. She is on an insulin pump. She reports intermittent chest discomfort radiating to her left arm. She also admits to progressive dyspnea as her ascites has accumulated. She denies any current pain. Denies a cough or fever. She admits to chronic LE edema and it is not worse today. No unilateral edema. She follows with a hepetologogist at [facility] and oncology with Dr Young due to pancytopenia. She denies any abdominal pain. No urinary difficulty. Hx of CAD with stent many years ago. Does take aspirin daily even though platelet counts <50,000. No modifying factors. Radiation: non-radiation Pain Scale: 6 Consistency: intermittent Improves with: nothing Worsens with: nothing Associated symptoms: Reports: denies other symptoms Treatments Prior to Arrival: none - Related Data Home Medications Medication Instructions Recorded Confirmed Amitriptyline [Elavil] 10 mg PO HS 12/31/15 04/20/17 Furosemide [Lasix] 40 mg PO DAILY 12/31/15 04/20/17 LORazepam [Ativan] 0.5 mg PO DAILY PRN 12/31/15 04/20/17 Lactulose 30 ml PO DAILY PRN 12/31/15 04/20/17 Lisinopril-HCTZ 20-12.5 [Prinzide 1 tab PO BID 12/31/15 04/20/17 20-12.5] Loratadine [Claritin] 10 mg PO DAILY 12/31/15 04/20/17 Nitroglycerin [Nitrostat] 0.4 mg SL Q5M PRN 12/31/15 04/20/17 Omeprazole [PriLOSEC] 40 mg PO BID 12/31/15 04/20/17 Ranitidine HCl [Zantac] 150 mg PO HS 12/31/15 04/20/17 metFORMIN [Glucophage] 1,000 mg PO BIDWM 12/31/15 04/20/17 traMADol [Ultram] 50 mg PO Q6HR PRN 12/31/15 04/20/17 Rosuvastatin Calcium [Crestor] 20 mg PO HS 09/11/16 04/20/17 Albuterol Sulfate [Ventolin Hfa] 2 puff IH Q4H PRN 01/31/17 04/20/17 Aspirin 81 mg PO DAILY 01/31/17 04/20/17 Fluticasone Propionate Nasal 1 spray NS DAILY PRN 01/31/17 04/20/17 [Flonase] Fluticasone/Vilanterol [Breo 1 puff IH DAILY 01/31/17 04/20/17 Ellipta 100-25 Mcg INH] Gabapentin [Neurontin] 100 mg PO BID 01/31/17 04/20/17 Ipratropium/Albuterol Neb [Duoneb] 3 ml IH Q6HR PRN 01/31/17 04/20/17 Meclizine HCl [Verticalm] 25 mg PO DAILY PRN 01/31/17 04/20/17 Melatonin 9 mg PO HS 01/31/17 04/20/17 Multivitamin [One Daily Essential] 1 tab PO DAILY 01/31/17 04/20/17 Subcutaneous Insulin Pump [T:Slim] 1 each MC AD PRN 03/15/17 04/20/17 Spironolactone [Aldactone] 25 mg PO BID 04/20/17 04/20/17 Isosorbide MONOnitrate (24 HR) 30 mg PO DAILY 06/23/17 06/23/17 [Imdur] Previous Rx's Medication Instructions Recorded Metoprolol [Lopressor] 100 mg PO BID #60 tablet 03/17/17 Allergies Allergy/AdvReac Type Severity Reaction Status Date / Time Hydroxychloroquine Allergy Hives Verified 04/20/17 15:09 [From Plaquenil] atorvastatin [From Lipitor] AdvReac Muscle Pain Verified 04/20/17 15:09 escitalopram [From Lexapro] AdvReac See Verified 04/20/17 15:09 Comments All systems ED: reviewed and negative except as stated. Constitutional: Denies: fever Eyes: Denies: vision change ENT ED: Denies: throat pain Cardiovascular: Reports: chest pain Respiratory: Reports: dyspnea. Denies: cough Gastrointestinal: Denies: abdominal pain, nausea, vomiting, diarrhea Genitourinary: Denies: dysuria Musculoskeletal: Denies: back pain Integumentary: Denies: rash Neurological: Denies: headache Endocrine: Denies: fatigue Past Medical History - Past Medical History Medical history: Reports: coronary artery disease, diabetes, fibromyalgia, GERD , hyperlipidemia, hypertension, liver disease, myocardial infarction, thyroid disease, other Surgical history: Reports: hysterectomy, other Psychiatric history: Reports: anxiety - Social History Smoking Status: Never smoker Smokeless Tobacco Status: No Alcohol use: Reports: none Drug use: Reports: none Physical Exam - General Limitations: no limitations General appearance: alert, in no apparent distress - Head Head exam: atraumatic - Eye Eye exam: Present: normal appearance, PERRL, EOMI - ENT ENT exam: normal exam, normal oropharynx - Neck Neck exam: Present: normal inspection - Chest Chest inspection: Present: normal inspection. Absent: symmetric chest wall rise - Respiratory Respiratory exam: Present: normal lung sounds bilaterally, respiratory distress - Cardiovascular Cardiovascular exam: Present: regular rate, normal rhythm - Abdominal Exam Abdominal exam: Present: soft, distention (fluid wave present) - Extremities Exam Extremities exam: Present: normal inspection, pedal edema (2+) - Neurological Exam Neurological exam: Present: alert, oriented X3, CN II-XII intact - Psychiatric Psychiatric exam: Present: normal affect, normal mood - Skin Skin exam: Present: warm, dry Course Course Narrative: She appears to have a re-accumulation of her ascites. I do not believe she has SBP as she has no abdominal pain or other symptoms aside from chest pain/ dyspnea. Dyspnea likely due to ascites. Will check LFT's and cardiac labs. No spontaneous bleeding. She is well appearing and does not have jaundice. UA shows some WBC's but minimal bacteria. She denies urinary symptoms. Will culture instead of empirically treating. Her CP improved after a nitro trial. Troponin negative. EKG shows no acute change. Will admit. Did not give aspirin due to platelet count being <50,000. Vital Signs Temperature 98.6 F 06/23/17 15:14 Pulse Rate 73 06/23/17 15:14 Respiratory Rate 22 06/23/17 15:14 Blood Pressure 141/66 06/23/17 15:14 O2 Sat by Pulse Oximetry 97 06/23/17 15:14 Temperature 98.6 F 06/23/17 15:14 Pulse Rate 75 06/23/17 17:06 Respiratory Rate 20 06/23/17 17:06 Blood Pressure 142/66 06/23/17 17:06 O2 Sat by Pulse Oximetry 99 06/23/17 17:06 Oxygen Delivery Oxygen Delivery Room Air Medical Decision Making - Medical Records Medical records reviewed: Yes I reviewed the patient's medical records. - Lab Data Lab results reviewed: Yes I reviewed the patient's lab results. Result diagrams: 06/23/17 15:20 06/23/17 15:20 Lab Results 06/23/17 06/23/17 06/23/17 Range/Units 15:20 15:20 15:20 WBC 2.2 L (4.3-11.1) K/mcL RBC 4.18 (3.82-4.97) M/mcL Hgb 12.1 (11.5-15.4) g/dL Hct 36.9 (35.3-44.9) % MCV 88.3 (83.0-100.0) fL MCH 28.9 (28.0-33.3) pg MCHC 32.8 (31.6-35.5) g/dL RDW 15.6 H (11.5-14.5) % Plt Count 44 L (140-400) K/mcL MPV 10.2 (9.4-12.4) fL Immature Gran % 0.5 (0-4) % Seg Neutrophils % 63.7 % Lymphocytes % 25.7 % Monocytes % 7.8 % Eosinophils % 1.4 % Basophils % 0.9 % Neutrophils # 1.4 L (1.6-8.9) K/mcL Lymphocytes # 0.6 (0.6-4.6) K/mcL Monocytes # 0.2 (0.0-1.3) K/mcL Eosinophils # 0.0 (0.0-0.6) K/mcL Basophils # 0.0 (0.0-0.2) K/mcL Immature Plt Fraction 5.9 (1.1-6.1) % PT 12.7 H (9.4-12.1) Seconds INR 1.2 APTT 32.9 (26.0-36.0) Seconds Sodium 139 (136-145) mEq/L Potassium 3.9 (3.5-4.5) mEq/L Chloride 107 (98-109) mEq/L Carbon Dioxide 22 (19-29) mEq/L BUN 16 (7-20) mg/dL Creatinine 0.75 (0.57-1.11) mg/dL Est GFR ( Amer) > 60 (> 60) Est GFR (Non-Af Amer) > 60 (> 60) BUN/Creatinine Ratio 21 (6-26) Glucose 180 H (70-99) mg/dL Calculated Osmolality 294 (280-300) Calcium 9.4 (8.6-10.8) mg/dL Total Bilirubin 1.1 (0.2-1.2) mg/dL Direct Bilirubin 0.5 (0.0-0.5) mg/dL Indirect Bilirubin 0.6 (0.0-1.2) mg/dL AST 36 H (5-34) Units/L ALT 22 (0-55) Units/L Alkaline Phosphatase 100 (38-126) Units/L Ammonia (18-72) mcmol/L Troponin I (0-0.03) ng/mL B-Natriuretic Peptide (0-100) pg/mL Serum Total Protein 6.9 (6.0-8.3) g/dL Albumin 3.2 L (3.5-5.0) g/dL Globulin 3.7 H (2.4-3.5) g/dL Albumin/Globulin Ratio 0.9 L (1.1-2.2) Urine Color (Yellow) Urine Clarity (Clear) Urine pH (5.0-8.0) pH Units Ur Specific [place] (1.010-1.025) Urine Protein (Neg-Trace) mg/dL Urine Glucose (UA) (Normal) mg/dL Urine Ketones (Negative) mg/dL Urine Blood (Negative) Urine Nitrite (Negative) Urine Bilirubin (Negative) Urine Urobilinogen (Normal) mg/dL Ur Leukocyte Esterase (Negative) Urine Microscopic RBC (0-3) per hpf Urine Microscopic WBC (0-3) per hpf Ur Squamous Epith Cells (None-Few) per lpf Urine Bacteria (None-Few) per hpf Hyaline Casts (None-Few) per lpf Ur Culture Indicated? (NO) 06/23/17 06/23/17 06/23/17 Range/Units 15:20 15:20 15:20 WBC (4.3-11.1) K/mcL RBC (3.82-4.97) M/mcL Hgb (11.5-15.4) g/dL Hct (35.3-44.9) % MCV (83.0-100.0) fL MCH (28.0-33.3) pg MCHC (31.6-35.5) g/dL RDW (11.5-14.5) % Plt Count (140-400) K/mcL MPV (9.4-12.4) fL Immature Gran % (0-4) % Seg Neutrophils % % Lymphocytes % % Monocytes % % Eosinophils % % Basophils % % Neutrophils # (1.6-8.9) K/mcL Lymphocytes # (0.6-4.6) K/mcL Monocytes # (0.0-1.3) K/mcL Eosinophils # (0.0-0.6) K/mcL Basophils # (0.0-0.2) K/mcL Immature Plt Fraction (1.1-6.1) % PT (9.4-12.1) Seconds INR APTT (26.0-36.0) Seconds Sodium (136-145) mEq/L Potassium (3.5-4.5) mEq/L Chloride (98-109) mEq/L Carbon Dioxide (19-29) mEq/L BUN (7-20) mg/dL Creatinine (0.57-1.11) mg/dL Est GFR ( Amer) (> 60) Est GFR (Non-Af Amer) (> 60) BUN/Creatinine Ratio (6-26) Glucose (70-99) mg/dL Calculated Osmolality (280-300) Calcium (8.6-10.8) mg/dL Total Bilirubin (0.2-1.2) mg/dL Direct Bilirubin (0.0-0.5) mg/dL Indirect Bilirubin (0.0-1.2) mg/dL AST (5-34) Units/L ALT (0-55) Units/L Alkaline Phosphatase (38-126) Units/L Ammonia 38 (18-72) mcmol/L Troponin I 0.00 (0-0.03) ng/mL B-Natriuretic Peptide 111 H (0-100) pg/mL Serum Total Protein (6.0-8.3) g/dL Albumin (3.5-5.0) g/dL Globulin (2.4-3.5) g/dL Albumin/Globulin Ratio (1.1-2.2) Urine Color (Yellow) Urine Clarity (Clear) Urine pH (5.0-8.0) pH Units Ur Specific [place] (1.010-1.025) Urine Protein (Neg-Trace) mg/dL Urine Glucose (UA) (Normal) mg/dL Urine Ketones (Negative) mg/dL Urine Blood (Negative) Urine Nitrite (Negative) Urine Bilirubin (Negative) Urine Urobilinogen (Normal) mg/dL Ur Leukocyte Esterase (Negative) Urine Microscopic RBC (0-3) per hpf Urine Microscopic WBC (0-3) per hpf Ur Squamous Epith Cells (None-Few) per lpf Urine Bacteria (None-Few) per hpf Hyaline Casts (None-Few) per lpf Ur Culture Indicated? (NO) 06/23/17 Range/Units 17:00 WBC (4.3-11.1) K/mcL RBC (3.82-4.97) M/mcL Hgb (11.5-15.4) g/dL Hct (35.3-44.9) % MCV (83.0-100.0) fL MCH (28.0-33.3) pg MCHC (31.6-35.5) g/dL RDW (11.5-14.5) % Plt Count (140-400) K/mcL MPV (9.4-12.4) fL Immature Gran % (0-4) % Seg Neutrophils % % Lymphocytes % % Monocytes % % Eosinophils % % Basophils % % Neutrophils # (1.6-8.9) K/mcL Lymphocytes # (0.6-4.6) K/mcL Monocytes # (0.0-1.3) K/mcL Eosinophils # (0.0-0.6) K/mcL Basophils # (0.0-0.2) K/mcL Immature Plt Fraction (1.1-6.1) % PT (9.4-12.1) Seconds INR APTT (26.0-36.0) Seconds Sodium (136-145) mEq/L Potassium (3.5-4.5) mEq/L Chloride (98-109) mEq/L Carbon Dioxide (19-29) mEq/L BUN (7-20) mg/dL Creatinine (0.57-1.11) mg/dL Est GFR ( Amer) (> 60) Est GFR (Non-Af Amer) (> 60) BUN/Creatinine Ratio (6-26) Glucose (70-99) mg/dL Calculated Osmolality (280-300) Calcium (8.6-10.8) mg/dL Total Bilirubin (0.2-1.2) mg/dL Direct Bilirubin (0.0-0.5) mg/dL Indirect Bilirubin (0.0-1.2) mg/dL AST (5-34) Units/L ALT (0-55) Units/L Alkaline Phosphatase (38-126) Units/L Ammonia (18-72) mcmol/L Troponin I (0-0.03) ng/mL B-Natriuretic Peptide (0-100) pg/mL Serum Total Protein (6.0-8.3) g/dL Albumin (3.5-5.0) g/dL Globulin (2.4-3.5) g/dL Albumin/Globulin Ratio (1.1-2.2) Urine Color Dark Yellow (Yellow) Urine Clarity Hazy A (Clear) Urine pH 6.0 (5.0-8.0) pH Units Ur Specific [place] 1.030 H (1.010-1.025) Urine Protein 30 H (Neg-Trace) mg/dL Urine Glucose (UA) 100 H (Normal) mg/dL Urine Ketones Negative (Negative) mg/dL Urine Blood Negative (Negative) Urine Nitrite Negative (Negative) Urine Bilirubin Small H (Negative) Urine Urobilinogen 2.0 H (Normal) mg/dL Ur Leukocyte Esterase Small H (Negative) Urine Microscopic RBC 0-3 (0-3) per hpf Urine Microscopic WBC 15-30 H (0-3) per hpf Ur Squamous Epith Cells Many H (None-Few) per lpf Urine Bacteria Few (None-Few) per hpf Hyaline Casts None Seen (None-Few) per lpf Ur Culture Indicated? YES A (NO) - Radiology Data Radiology results reviewed: Yes I reviewed the patient's radiology results. - EKG Data EKG #1 EKG attestation: Yes I reviewed and interpreted this EKG. EKG shows normal: sinus rhythm Rate: normal Rhythm: NSR Gap/QRS: normal When compared to previous EKG there are: no significant changes Interpretation: no acute changes
[2017-06-23 16:01] LABS: INR 1.2; Prothrombin Time 12.7 Seconds (9.4-12.1)
[2017-06-23 16:08] LABS: Alanine Aminotransferase 22 Units/L (0-55); Albumin 3.2 g/dL (3.5-5.0); Albumin/Globulin Ratio 0.9 (1.1-2.2); Alkaline Phosphatase 100 Units/L (38-126); Aspartate Amino Transferase 36 Units/L (5-34); BUN/Creatinine Ratio 21 (6-26); Bilirubin,Direct 0.5 mg/dL (0.0-0.5); Bilirubin,Indirect 0.6 mg/dL (0.0-1.2); Bilirubin,Total 1.1 mg/dL (0.2-1.2); Blood Urea Nitrogen 16 mg/dL (7-20); Calcium 9.4 mg/dL (8.6-10.8); Carbon Dioxide 22 mEq/L (19-29); Chloride 107 mEq/L (98-109); Globulin 3.7 g/dL (2.4-3.5); Glucose 180 mg/dL (70-99); Osmolality,Calculated 294 (280-300); Potassium 3.9 mEq/L (3.5-4.5); Sodium 139 mEq/L (136-145); Total Protein 6.9 g/dL (6.0-8.3); eGFR For African Americans > 60 (> 60); eGFR For Non-African Americans > 60 (> 60)
[2017-06-23] MEDS: Nitroglycerin 0.4 MG TAB.SUBL SL PRN ×2 (16:28→16:36)
--- NOTE | 2017-06-23 16:40 | Emergency Department Note ---
START Narrative - START START: I examined this patient and my medical decision-making was reviewed with the Resident Physician. I agree with the documented findings, disposition and treatment plan as described except to the extent set forth below. 62 year old female presents emergency room with chest pain. Patient states it started in her chest and the left side was radiating into her neck. pt with risk factors. ekg ok vss pt having intermittent cp in the ER nitro given
[2017-06-23 17:08] LABS: Bilirubin,Urine Small (Negative); Blood,Urine Negative (Negative); Color,Urine Dark Yellow (Yellow); Glucose,Urine (UA) 100 mg/dL (Normal); Ketones,Urine Negative (Negative); Leukocyte Esterase,Urine Small (Negative); Nitrite,Urine Negative (Negative); Protein,Urine 30 mg/dL (Neg-Trace)
[2017-06-23 17:10] LABS: Hyaline Casts,Urine None Seen per lpf (None-Few); Squamous Epithelial Cell,Urine Many per lpf (None-Few); WBC,Urine 15-30 per hpf (0-3)
[2017-06-23 17:11] LABS: Clarity,Urine Hazy (Clear)
[2017-06-23 17:38] LABS: Bacteria,Urine Few per hpf (None-Few); RBC,Urine 0-3 per hpf (0-3)
[2017-06-23] MEDS ORDERED: Ondansetron 4 MG/2 ML VIAL IVP PRN (19:30)
[2017-06-23] MEDS ORDERED: *HR* Morphine 2 MG/ML SYRINGE IVP PRN (19:30)
[2017-06-23] MEDS ORDERED: Naloxone 0.4 MG/ML INJ IVP PRN (19:30)
[2017-06-23] MEDS ORDERED: *HR* LORazepam 0.5 MG TABLET PO PRN (19:34)
[2017-06-23] MEDS ORDERED: Nitroglycerin 0.4 MG TAB.SUBL SL PRN (19:34)
[2017-06-23] MEDS ORDERED: Ipratropium/Albuterol Neb 3 ML IH PRN (19:34)
[2017-06-23] MEDS: Metoprolol 100 MG TABLET PO SCH (20:58)
[2017-06-23] MEDS: Spironolactone 25 MG TABLET PO SCH (20:58)
[2017-06-23] MEDS: Furosemide 40 MG/4 ML VIAL IVP SCH (20:58)
[2017-06-23] MEDS: Gabapentin 100 MG CAPSULE PO SCH (20:58)
[2017-06-23] MEDS: Lisinopril-HCTZ 20-12.5mg TABLET PO SCH (20:58)
--- NOTE | 2017-06-23 21:04 | Internal Med History&Physical ---
Date of Encounter: 06/23/17 Time of Encounter: 20:30 Assessment and Plan (1) Ascites Current visit: No Status: Acute Acute on chronic ascites - causing atypical chest pain and shortness of breath Continue IV Lasix, Aldactone Interventional radiology consult for paracentesis Fluid restriction, strict I's and O's, daily weight, cardiac telemetry Repeat labs in a.m. Qualifiers: Ascites type: other type Qualified Code(s): R18.8 - Other ascites (2) Chest pain Current visit: Yes Status: Acute Atypical chest pain - likely secondary to massive ascites, unlikely to be ACS Troponin - negative, cycle troponin EKG - normal sinus rhythm with no acute ST-T changes Cardiac telemetry, continue to monitor closely Qualifiers: Chest pain type: unspecified Qualified Code(s): R07.9 - Chest pain, unspecified (3) SIMON (nonalcoholic steatohepatitis) Current visit: No Status: Chronic SIMON/cirrhosis - causing massive ascites and edema Pancytopenia secondary to cirrhosis She follows up with magnet placer at [facility] and follows up with oncology (4) Pancytopenia Current visit: No Status: Chronic Chronic pancytopenia including severe Thrombocytopenia, leukopenia - secondary to cirrhosis Patient follows up with oncology as outpatient No active bleeding at this time, repeat labs in a.m. Transfuse platelets if any bleeding develops and transfuse PRBC if hemoglobin < 7 (5) CAD (coronary artery disease) Current visit: No Status: Chronic Coronary artery disease status post stents - stable Continue aspirin, statin Troponin - negative, cycle troponin EKG - normal sinus rhythm with no acute ST-T changes Qualifiers: Coronary Disease-Associated Artery/Lesion type: eek artery [place] vs. transplanted heart: eek heart Associated angina: without angina Qualified Code(s): I25.10 - Atherosclerotic heart disease of eek coronary artery without angina pectoris (6) T2DM (type 2 diabetes mellitus) Current visit: No Status: Chronic Diabetes mellitus type 2, insulin-dependent, hyperglycemia Continue insulin sliding scale and glucose checks Qualifiers: Diabetes mellitus complication status: without complication Diabetes mellitus longitudinal float operator insulin use: with fpc use Qualified Code(s): E11.9 - Type 2 diabetes mellitus without complications; Z79.4 - buttermaker continuous churn (current) use of insulin (7) Hypertension Current visit: No Status: Chronic Essential hypertension, controlled, continue home meds, monitor Qualifiers: Hypertension type: essential hypertension Qualified Code(s): I10 - Essential (primary) hypertension (8) Hyperlipidemia Current visit: No Status: Chronic Continue statin Qualifiers: Hyperlipidemia type: unspecified Qualified Code(s): E78.5 - Hyperlipidemia , unspecified (9) DVT prophylaxis Current visit: No Status: Acute Continue SCDs, avoid anticoagulation due to thrombocytopenia Internal Medicine - H&P: HPI Chief complaint: Shortness of breath Admitted From: Emergency Dept Plans for Post Hospital Care: Home History of present illness: Ms. Morgan is a 62 year old female with past medical history of cirrhosis, hypertension, CAD, hyperlipidemia, diabetes, asthma, GERD and fibromyalgia and thyroid disease. Patient presents to the ED with complaints of shortness of breath and intermittent chest pain. Examined in the room. Patient is awake and alert. Not in any distress. Able to provide all history. is at bedside. Patient states she has had progressive dyspnea and worsening ascites over the past few days. She also complains of intermittent chest pressure which is radiating to her left arm at times. Denies chest pain at present. She denies shortness of breath at present. Denies palpitations. No vomiting, fever or diarrhea or abdominal pain. Patient thinks she needs paracentesis again because of her worsening ascites. Patient does have pancytopenia secondary to cirrhosis. She does follow up with a magnet placer at [facility]. She also follows up with Dr. Young for pancytopenia. Patient denies any other acute complaints at this time. Initial workup in the ED reveals pancytopenia, which is chronic. Liver function is fairly within normal limits. Troponin is negative. EKG reveals normal sinus rhythm with no acute ST-T changes. Patient is being admitted for SIMON/cirrhosis with ascites. Patient will need paracentesis. CODE STATUS full code. Past Med Surg Social Fam HX - Past Medical History Medical history: coronary artery disease, diabetes, fibromyalgia, GERD, hyperlipidemia, hypertension, liver disease, myocardial infarction, thyroid disease, other Psychiatric history: anxiety - Past Surgical History Surgical History: hysterectomy, other - Social History Smoking Status: Never smoker Smokeless Tobacco Status: No Alcohol use: none Drug use: none - Family History Mother Living Status: Hx Family Cardiac Disorders: Yes (CAD) Hx Family Respiratory Disorders: Yes Father Living Status: Hx Family Cardiac Disorders: Yes Internal Medicine - H&P: Meds Amitriptyline [Elavil] 10 mg PO HS 12/31/15 [History] Furosemide [Lasix] 40 mg PO DAILY 12/31/15 [History] LORazepam [Ativan] 0.5 mg PO DAILY PRN 12/31/15 [History] Lactulose 30 ml PO DAILY PRN 12/31/15 [History] Lisinopril-HCTZ 20-12.5 [Prinzide 20-12.5] 1 tab PO BID 12/31/15 [History] Loratadine [Claritin] 10 mg PO DAILY 12/31/15 [History] Nitroglycerin [Nitrostat] 0.4 mg SL Q5M PRN 12/31/15 [History] Omeprazole [PriLOSEC] 40 mg PO BID 12/31/15 [History] Ranitidine HCl [Zantac] 150 mg PO HS 12/31/15 [History] metFORMIN [Glucophage] 1,000 mg PO BIDWM 12/31/15 [History] traMADol [Ultram] 50 mg PO Q6HR PRN 12/31/15 [History] Rosuvastatin Calcium [Crestor] 20 mg PO HS 09/11/16 [History] Albuterol Sulfate [Ventolin Hfa] 2 puff IH Q4H PRN 01/31/17 [History] Aspirin 81 mg PO DAILY 01/31/17 [History] Fluticasone Propionate Nasal [Flonase] 1 spray NS DAILY PRN 01/31/17 [History] Fluticasone/Vilanterol [Breo Ellipta 100-25 Mcg INH] 1 puff IH DAILY 01/31/17 [ History] Gabapentin [Neurontin] 100 mg PO BID 01/31/17 [History] Ipratropium/Albuterol Neb [Duoneb] 3 ml IH Q6HR PRN 01/31/17 [History] Meclizine HCl [Verticalm] 25 mg PO DAILY PRN 01/31/17 [History] Melatonin 6 mg PO HS 01/31/17 [History] Multivitamin [One Daily Essential] 1 tab PO DAILY 01/31/17 [History] Subcutaneous Insulin Pump [T:Slim] 1 each MC AD PRN 03/15/17 [History] Metoprolol [Lopressor] 100 mg PO BID #60 tablet 03/17/17 [Rx] Spironolactone [Aldactone] 25 mg PO BID 04/20/17 [History] Isosorbide MONOnitrate (24 HR) [Imdur] 30 mg PO DAILY 06/23/17 [History] 3 Allergy/AdvReac Type Severity Reaction Status Date / Time Hydroxychloroquine Allergy Hives Verified 04/20/17 15:09 [From Plaquenil] atorvastatin [From Lipitor] AdvReac Muscle Pain Verified 04/20/17 15:09 escitalopram [From Lexapro] AdvReac See Verified 04/20/17 15:09 Comments All Systems PM: A 10-system review of systems was performed and is negative for pertinent findings except as documented above in the HPI. - Constitutional Constitutional: fatigue, no fever(s), no weakness - EENT Eyes: no blurry vision - Cardiovascular Cardiovascular ROS IM: chest pain, dyspnea, dyspnea on exertion, edema, no lightheadedness, no orthopnea, no syncope - Respiratory Respiratory: dyspnea, dyspnea on exertion, no cough, no hemoptysis, no wheezing , no chest congestion - Gastrointestinal Gastrointestinal: abdominal pain (Distention due to ascites), no cramping, no hematemesis, no melena, no nausea, no vomiting - Genitourinary Genitourinary: no dysuria - Musculoskeletal Musculoskeletal ROS IM: no back pain - Neurological Neurological ROS: no abnormal gait, no confusion, no dizziness, no loss of vision, no numbness, no tingling - Constitutional Vitals: Temp Pulse Resp BP Pulse Ox 98.3 F 80 18 153/76 97 06/23/17 19:05 06/23/17 19:05 06/23/17 19:05 06/23/17 19:05 06/23/17 19:05 General appearance: Present: A&O X 3, pleasant, no acute distress, obese, answers questions appropriately - Head Head exam: Present: atraumatic - Eye Eye exam: Present: EOMI - ENT ENT exam: Present: mucous membranes moist - Respiratory Respiratory exam: Present: rales (Mild bilateral). Absent: accessory muscle use , rhonchi, wheezes, tachypnea - Cardiovascular Cardiovascular exam: Present: RRR, +S1, +S2 - GI/Abdominal GI/Abdominal exam: Present: distended (Patient has massive ascites), firm ( Secondary to ascites), no peritoneal signs. Absent: guarding, rebound, rigid, soft, tenderness - Extremities Exam Extremities exam: Present: pedal edema (Bilateral lower leg 2+ pitting edema), radial pulses palpable and symmetrical. Absent: calf tenderness, cyanotic - Neurological Exam Neurological exam: Present: alert, oriented X3, no focal deficits. Absent: facial droop, speech deficit Internal Med - H&P Results - Labs CBC & Chem 7: 06/23/17 15:20 06/23/17 15:20 Labs: Cardiac Enzymes 06/23/17 Range/Units 19:45 Troponin I 0.00 (0-0.03) ng/mL
[2017-06-23] MEDS ORDERED: D5% in Water 1,000 ML IVC PRN (22:14)
[2017-06-23] MEDS ORDERED: Dextrose Gel 15 GM PO PRN ×2 (22:14)
[2017-06-23] MEDS ORDERED: *HR* Dextrose 50 % in Water (Syg) 50 ML SYRINGE IVP PRN (22:14)
[2017-06-23] MEDS: Insulin LISPRO 300 UNITS/3 ML VIAL SQ SCH (23:35)
[2017-06-24 02:05] LABS: Red Cell Distribution Width 15.6 % (11.5-14.5)
[2017-06-24 02:06] LABS: Hematocrit 34.5 % (35.3-44.9); Hemoglobin 11.1 g/dL (11.5-15.4); Immature Granulocytes % 0.5 % (0-4); Lymphocytes # 0.5 K/mcL (0.6-4.6); Lymphocytes % 23.5 %; Mean Corpuscular HGB Conc 32.2 g/dL (31.6-35.5); Mean Corpuscular Hemoglobin 28.5 pg (28.0-33.3); Mean Corpuscular Volume 88.7 fL (83.0-100.0); Mean Platelet Volume 11.8 fL (9.4-12.4); Monocytes # 0.2 K/mcL (0.0-1.3); Monocytes % 10.5 %; Neutrophils # 1.3 K/mcL (1.6-8.9); Red Blood Count 3.89 M/mcL (3.82-4.97); Segmented Neutrophils % 62.5 %
[2017-06-24 02:11] LABS: Platelet Count 42 K/mcL (140-400)
[2017-06-24 02:17] LABS: BUN/Creatinine Ratio 18 (6-26); Blood Urea Nitrogen 17 mg/dL (7-20); Calcium 9.1 mg/dL (8.6-10.8); Carbon Dioxide 28 mEq/L (19-29); Chloride 103 mEq/L (98-109); Glucose 421 mg/dL (70-99); Magnesium 1.5 mg/dL (1.6-2.6); Osmolality,Calculated 305 (280-300); Potassium 3.6 mEq/L (3.5-4.5); Sodium 138 mEq/L (136-145); eGFR For African Americans > 60 (> 60); eGFR For Non-African Americans > 60 (> 60)
[2017-06-24] MEDS: Famotidine 20 MG/2 ML VIAL IVP SCH ×2 (04:57→17:17)
[2017-06-24] MEDS: Aspirin 81 MG TAB.CHEW PO SCH (08:03)
[2017-06-24] MEDS: Multivit/Ca/Min/Fe/FA 1 TAB TABLET PO SCH (08:03)
[2017-06-24] MEDS: Fluticasone/Vilanterol [Breo Ellipta 100-25 Mcg Inh IH SCH (08:03)
[2017-06-24] MEDS: Furosemide 40 MG/4 ML VIAL IVP SCH ×2 (08:03→21:20)
[2017-06-24] MEDS: Spironolactone 25 MG TABLET PO SCH ×2 (08:03→21:19)
[2017-06-24] MEDS: Lisinopril-HCTZ 20-12.5mg TABLET PO SCH ×2 (08:03→21:30)
[2017-06-24] MEDS: Metoprolol 100 MG TABLET PO SCH ×2 (08:03→21:30)
[2017-06-24] MEDS: Gabapentin 100 MG CAPSULE PO SCH ×2 (08:03→21:19)
[2017-06-24] MEDS: Insulin LISPRO 300 UNITS/3 ML VIAL SQ SCH ×4 (08:04→21:34)
[2017-06-24] MEDS ORDERED: Isosorbide MONOnitrate (24 HR) 30 MG TAB.ER.24H PO SCH (09:00)
--- NOTE | 2017-06-24 10:27 | IR Procedure Note ---
Date of procedure: 06/24/17 Consent Obtained: Verbal consent, Written consent Timeout: Correct patient and procedure verified, Correct site verified, Time out performed, Skin prep completed Local anesthetic: Lidocaine 1% Indications: Ascites Procedure Performed: Paracentesis Site/Technique: Paracentesis performed Results/Findings: Moderate ascites Estimated blood loss (cc): 0 Complications: None; Tolerated procedure well Post Procedure Treatment Plan: Continue inpatient care
[2017-06-24] MEDS ORDERED: Isosorbide MONOnitrate (24 HR) 30 MG TAB.ER.24H PO ONE (11:00)
--- NOTE | 2017-06-24 12:06 | Internal Med Progress Note ---
Date of Encounter: 06/24/17 Time of Encounter: 08:20 - Assessment and plan (1) Ascites Current Visit: Yes Status: Acute Assessment and plan: Acute on chronic. Most likely the cause of patient's chest pain due to abdominal distention and pressure on diaphragm. Patient had paracentesis today. Tolerated procedure well. 1500 mL serous ascites was removed. We will monitor patient overnight and continue IV Lasix, Aldactone, fluid restriction, strict I and O, daily weight, and telemetry. Qualifiers: Ascites type: other type Qualified Code(s): R18.8 - Other ascites (2) Chest pain Current Visit: Yes Status: Acute Assessment and plan: Patient reports atypical chest pain, most likely secondary to ascites. Patient reports chest heaviness substernal area with intermittent sharp shooting pain in the left chest, left arm to left elbow. Last heart catheter was done in March,. Showed an EF of 50% with severe small vessel disease, most remarkable to 80% stenosis in the PDA. Patient had TTE in January, that showed preserved EF, normal RV size and function, mildly dilated left atrium. This visit troponins negative x 3, chest xray suggestive of CHF. We will increase Imdur to 60 mg by mouth daily, monitor patient overnight for effectiveness. Continue telemetry, aspirin, and statin. Qualifiers: Chest pain type: precordial pain Qualified Code(s): R07.2 - Precordial pain (3) SIMON (nonalcoholic steatohepatitis) Current Visit: Yes Status: Chronic Assessment and plan: History, causing massive ascites and edema. She follows up at [facility] with email producer. (4) Hyperlipidemia Current Visit: Yes Status: Chronic Assessment and plan: Chronic. Continue statin. Qualifiers: Hyperlipidemia type: unspecified Qualified Code(s): E78.5 - Hyperlipidemia , unspecified (5) Obstructive sleep apnea Current Visit: Yes Status: Chronic Assessment and plan: Chronic. Patient has BiPAP in the room. Continue. (6) Pancytopenia Current Visit: Yes Status: Chronic Assessment and plan: Patient with decreased platelets and white count. Chronic due to Simon. Patient follows up with oncology. Transfuse if hemoglobin less than 7, platelets less than 50. Stable at this time. (7) Obesity (BMI 30-39.9) Current Visit: Yes Status: Chronic Assessment and plan: Chronic. Continue lifestyle modifications. (8) DVT prophylaxis Current Visit: Yes Status: Acute Assessment and plan: Up to chair BID and ICDs ordered. (9) CAD (coronary artery disease) Current Visit: Yes Status: Chronic Assessment and plan: Pt reports atypical chest pain. Will continue telemetry and medications. Plan as above. Qualifiers: Coronary Disease-Associated Artery/Lesion type: [place] artery [place] vs. transplanted heart: [place] heart Associated angina: without angina Qualified Code(s): I25.10 - Atherosclerotic heart disease of [place] coronary artery without angina pectoris (10) T2DM (type 2 diabetes mellitus) Current Visit: Yes Status: Chronic Assessment and plan: A1c 8.8 last month, continue SSI, accuchecks and diabetic diet. Qualifiers: Diabetes mellitus complication status: without complication Diabetes mellitus terminal operations manager insulin use: with long-term use Qualified Code(s): E11.9 - Type 2 diabetes mellitus without complications; Z79.4 - snf (current) use of insulin - Time Spent With Patient less than 15 minutes - Subjective Interval history: Pt was seen and assessed at 8:20 AM. She reports 2 weeks of difficulty breathing and an 11 pound weight gain. She states it has become worse over the last 3 days prompting her visit to the emergency department. She reports chest heaviness with intermittent shooting pain to her left chest and left arm down to the elbow. She reports some nausea, denies diaphoresis. - Constitutional Vitals: Temp Pulse Resp BP Pulse Ox 97.8 F 66 16 126/73 93 06/24/17 10:48 06/24/17 10:48 06/24/17 10:48 06/24/17 10:48 06/24/17 10:48 General appearance: Present: cooperative, mild distress, A&O X 3, pleasant, obese, answers questions appropriately - Head Head exam: Present: atraumatic, normal inspection, normocephalic - Eye Eye exam: Present: normal appearance, conjuntiva pink, sclera anicteric - Neck Neck exam general surgery: Present: supple, trachea midline. Absent: lymphadenopathy - Respiratory Respiratory exam: Present: CTAB, respiratory distress. Absent: accessory muscle use, rales, rhonchi, wheezes Additional comments: Patient in mild respiratory distress due to abdominal distention most likely. - Cardiovascular Cardiovascular exam: Present: RRR, +S1, +S2. Absent: diastolic murmur, gallop, rubs, systolic murmur - GI/Abdominal GI/Abdominal exam: Present: firm, normal bowel sounds, no peritoneal signs. Absent: distended, tenderness - Extremities Exam Extremities exam: Present: normal capillary refill, warm, radial pulses palpable and symmetrical. Absent: calf tenderness, cyanotic, pedal edema, tenderness - Neurological Exam Neurological exam: Present: alert, oriented X3, no focal deficits. Absent: facial droop, speech deficit - Skin Skin exam: Present: dry, intact, normal color, warm. Absent: rash Internal Medicine: Result - Labs CBC & Chem 7: 06/24/17 01:28 06/24/17 01:28 Labs: Short CBC 06/24/17 Range/Units 01:28 WBC 2.0 L (4.3-11.1) K/mcL Hgb 11.1 L (11.5-15.4) g/dL Hct 34.5 L (35.3-44.9) % Plt Count 42 L (140-400) K/mcL Neutrophils # 1.3 L (1.6-8.9) K/mcL BMP 06/24/17 01:28 Sodium 138 Potassium 3.6 Chloride 103 Carbon Dioxide 28 BUN 17 Creatinine 0.93 Glucose 421 H Calcium 9.1 Cardiac Enzymes 06/23/17 06/24/17 06/24/17 Range/Units 19:45 01:28 07:42 Troponin I 0.00 0.00 0.00 (0-0.03) ng/mL - ABG Interpretation ABG results: PT/INR, D-dimer PT 12.7 Seconds (9.4-12.1) H 06/23/17 15:20 - Impressions Impressions Paracentesis Ultrasound 06/24/17 00:00 IMPRESSION: Successful ultrasound guided paracentesis. D/ / Arron Lai MD / Arorn Lai MD Interpreting Provider: Arron Lai MD - VTE Documentation of Mechanical Device: Intermittent pneumatic compression device Consult Discharge Plan - Plan Referrals: Paul Cantu CNP [Primary Care Provider] -
[2017-06-24] MEDS ORDERED: Insulin LISPRO 300 UNITS/3 ML VIAL SQ SCH ×2 (21:00→22:06)
[2017-06-24] MEDS: Nitroglycerin 0.4 MG TAB.SUBL SL PRN ×3 (21:16→21:30)
[2017-06-24] MEDS: Insulin DETEMIR 100 UNIT/ML X5UNITS SQ SCH (23:09)
[2017-06-25 04:44] LABS: Basophils % 0.5 %
[2017-06-25 04:45] LABS: Eosinophils % 1.6 %; Hematocrit 33.6 % (35.3-44.9); Hemoglobin 11.5 g/dL (11.5-15.4); Lymphocytes # 0.5 K/mcL (0.6-4.6); Lymphocytes % 26.8 %; Mean Corpuscular HGB Conc 34.2 g/dL (31.6-35.5); Mean Corpuscular Hemoglobin 29.8 pg (28.0-33.3); Mean Platelet Volume 12.4 fL (9.4-12.4); Monocytes # 0.2 K/mcL (0.0-1.3); Neutrophils # 1.2 K/mcL (1.6-8.9); Red Blood Count 3.86 M/mcL (3.82-4.97); Red Cell Distribution Width 15.4 % (11.5-14.5); Segmented Neutrophils % 61.1 %
[2017-06-25 04:54] LABS: Calcium 9.7 mg/dL (8.6-10.8); Potassium 3.7 mEq/L (3.5-4.5)
[2017-06-25 05:34] LABS: Platelet Count 48 K/mcL (140-400)
[2017-06-25 05:35] LABS: Platelet Estimate Decreased (Normal)
[2017-06-25 05:37] LABS: Anisocytosis 1+ (Not Present)
[2017-06-25] MEDS: Famotidine 20 MG/2 ML VIAL IVP SCH (06:10)
[2017-06-25] MEDS: Multivit/Ca/Min/Fe/FA 1 TAB TABLET PO SCH (08:11)
[2017-06-25] MEDS: Gabapentin 100 MG CAPSULE PO SCH ×2 (08:11→20:37)
[2017-06-25] MEDS: Aspirin 81 MG TAB.CHEW PO SCH (08:11)
[2017-06-25] MEDS: Isosorbide MONOnitrate (24 HR) 30 MG TAB.ER.24H PO SCH (08:11)
[2017-06-25] MEDS: Insulin LISPRO 300 UNITS/3 ML VIAL SQ SCH ×3 (08:12→17:16)
[2017-06-25] MEDS ORDERED: 0.9 % Sodium Chloride 1,000 ML IVC SCH (08:15)
[2017-06-25] MEDS: Furosemide 20 MG TABLET PO SCH (08:15)
[2017-06-25] MEDS: Spironolactone 25 MG TABLET PO SCH ×2 (08:19→20:37)
[2017-06-25] MEDS: Metoprolol 100 MG TABLET PO SCH ×2 (08:19→20:37)
[2017-06-25] MEDS: Fluticasone/Vilanterol [Breo Ellipta 100-25 Mcg Inh IH SCH (08:20)
[2017-06-25] MEDS: Lisinopril-HCTZ 20-12.5mg TABLET PO SCH ×2 (08:20→20:37)
[2017-06-25] MEDS ORDERED: Ibuprofen 600 MG TABLET PO ONE (11:49)
[2017-06-25 14:21] LABS: Calcium 9.4 mg/dL (8.6-10.8); Potassium 3.8 mEq/L (3.5-4.5)
--- NOTE | 2017-06-25 18:13 | Internal Med Progress Note ---
Date of Encounter: 06/25/17 Time of Encounter: 09:30 - Assessment and plan (1) Ascites Current Visit: Yes Status: Acute Assessment and plan: Acute on chronic. 1500 mL serous ascites was removed during paracentesis.. We will monitor patient overnight and continue IV Lasix, Aldactone, fluid restriction, strict I and O, daily weight, and telemetry. Qualifiers: Ascites type: other type Qualified Code(s): R18.8 - Other ascites (2) Chest pain Current Visit: Yes Status: Acute Assessment and plan: Patient reports atypical chest pain, most likely secondary to ascites. Patient reports chest heaviness substernal area with intermittent sharp shooting pain in the left chest, left arm to left elbow. Last heart catheter was done in March,. Showed an EF of 50% with severe small vessel disease, most remarkable to 80% stenosis in the PDA. Patient had TTE in January, that showed preserved EF, normal RV size and function, mildly dilated left atrium. This visit troponins negative x 3, chest xray suggestive of CHF. We will increase Imdur to 60 mg by mouth daily, monitor patient overnight for effectiveness. Continue telemetry, aspirin, and statin. Today chest pain and is reproducible with palpation left chest. Patient winces in pain with light palpation. Will treat with low dose of Tylenol. Qualifiers: Chest pain type: precordial pain Qualified Code(s): R07.2 - Precordial pain (3) SIMON (nonalcoholic steatohepatitis) Current Visit: Yes Status: Chronic Assessment and plan: History, causing massive ascites and edema. She follows up at [facility] with trim mechanic. (4) Hyperlipidemia Current Visit: Yes Status: Chronic Assessment and plan: Chronic. Continue statin. Qualifiers: Hyperlipidemia type: unspecified Qualified Code(s): E78.5 - Hyperlipidemia , unspecified (5) Obstructive sleep apnea Current Visit: Yes Status: Chronic Assessment and plan: Chronic. Patient has BiPAP in the room. Continue to use nightly. (6) Pancytopenia Current Visit: Yes Status: Chronic Assessment and plan: Patient with decreased platelets and white count. Platelets are increasing. Chronic due to Simon. Patient follows up with oncology. Transfuse if hemoglobin less than 7, platelets less than 50. Stable at this time. (7) Obesity (BMI 30-39.9) Current Visit: Yes Status: Chronic Assessment and plan: Chronic. Lifestyle changes. Patient also has ascites and large distended abdomen, not necessarily related to obesity due to diet control. (8) DVT prophylaxis Current Visit: Yes Status: Acute Assessment and plan: Up to chair BID and ICDs ordered. (9) CAD (coronary artery disease) Current Visit: Yes Status: Chronic Assessment and plan: Pt reports atypical chest pain. Will continue telemetry and medications. Chest pain the patient was having is reproducible with palpation today. Will treat with analgesic pain medication. Plan as above. Qualifiers: Coronary Disease-Associated Artery/Lesion type: [place] artery [place] vs. transplanted heart: [place] heart Associated angina: without angina Qualified Code(s): I25.10 - Atherosclerotic heart disease of [place] coronary artery without angina pectoris (10) T2DM (type 2 diabetes mellitus) Current Visit: Yes Status: Chronic Assessment and plan: A1c 8.8 last month, continue SSI, accuchecks and diabetic diet. Patient has been hyperglycemic today. We have changed her insulin dosages and will continue to monitor. Patient will get 25 units of Levemir at bedtime as well as increased sliding scale insulin to high dose. Qualifiers: Diabetes mellitus complication status: without complication Diabetes mellitus nurse staff industrial insulin use: with nurse staff industrial use Qualified Code(s): E11.9 - Type 2 diabetes mellitus without complications; Z79.4 - custodial (current) use of insulin - Time Spent With Patient less than 15 minutes - Subjective Interval history: Pt was seen and assessed at 8:30 AM. Patient states that she feels better and is ready to states she is breathing easier. - Constitutional Vitals: Temp Pulse Resp BP Pulse Ox 97.7 F 78 17 107/62 95 06/25/17 16:07 06/25/17 16:07 06/25/17 16:07 06/25/17 16:07 06/25/17 16:07 General appearance: Present: cooperative, mild distress, A&O X 3, pleasant, obese, answers questions appropriately - Head Head exam: Present: atraumatic, normocephalic - Eye Eye exam: Present: normal appearance, conjuntiva pink, sclera anicteric - Neck Neck exam general surgery: Present: supple, trachea midline. Absent: lymphadenopathy - Respiratory Respiratory exam: Present: CTAB. Absent: accessory muscle use, rales, rhonchi, wheezes - Cardiovascular Cardiovascular exam: Present: RRR, +S1, +S2. Absent: diastolic murmur, gallop, rubs, systolic murmur - GI/Abdominal GI/Abdominal exam: Present: distended, normal bowel sounds, soft. Absent: tenderness - Extremities Exam Extremities exam: Present: pedal edema, warm, radial pulses palpable and symmetrical. Absent: calf tenderness, cyanotic, tenderness - Neurological Exam Neurological exam: Present: CN II-XII intact, oriented X3, no focal deficits. Absent: pronater drift, facial droop, speech deficit - Skin Skin exam: Present: dry, intact, normal color, warm. Absent: rash Internal Medicine: Result - Labs CBC & Chem 7: 06/25/17 03:50 06/25/17 13:57 Labs: Short CBC 06/25/17 Range/Units 03:50 WBC 1.9 L (4.3-11.1) K/mcL Hgb 11.5 (11.5-15.4) g/dL Hct 33.6 L (35.3-44.9) % Plt Count 48 L (140-400) K/mcL Neutrophils # 1.2 L (1.6-8.9) K/mcL BMP 06/25/17 06/25/17 03:50 13:57 Sodium 137 135 L Potassium 3.7 3.8 Chloride 99 100 Carbon Dioxide 28 27 BUN 22 H 27 H Creatinine 1.29 H 1.37 H Glucose 449 H 555 H* Calcium 9.7 9.4 - ABG Interpretation ABG results: PT/INR, D-dimer PT 12.7 Seconds (9.4-12.1) H 06/23/17 15:20 - VTE Documentation of Mechanical Device: Intermittent pneumatic compression device Consult Discharge Plan - Plan Referrals: Paul Cantu MUSIC THEORY TEACHER [Primary Care Provider] -
[2017-06-25] MEDS: Insulin DETEMIR 100 UNIT/ML X5UNITS SQ SCH (20:38)
[2017-06-26 01:44] LABS: BUN/Creatinine Ratio 30 (6-26); Blood Urea Nitrogen 28 mg/dL (7-20); Calcium 9.1 mg/dL (8.6-10.8); Carbon Dioxide 28 mEq/L (19-29); Chloride 103 mEq/L (98-109); Glucose 333 mg/dL (70-99); Osmolality,Calculated 305 (280-300); Potassium 3.7 mEq/L (3.5-4.5); Sodium 138 mEq/L (136-145); eGFR For African Americans > 60 (> 60); eGFR For Non-African Americans > 60 (> 60)
[2017-06-26] MEDS ORDERED: Famotidine 20 MG/2 ML VIAL IVP SCH (06:00)
[2017-06-26 08:27] VITALS: BP 113/69
[2017-06-26] MEDS: Insulin LISPRO 300 UNITS/3 ML VIAL SQ SCH (08:38)
[2017-06-26] MEDS: Isosorbide MONOnitrate (24 HR) 30 MG TAB.ER.24H PO SCH (08:38)
[2017-06-26] MEDS: Lisinopril-HCTZ 20-12.5mg TABLET PO SCH (08:38)
[2017-06-26] MEDS: Furosemide 20 MG TABLET PO SCH (08:38)
[2017-06-26] MEDS: Aspirin 81 MG TAB.CHEW PO SCH (08:39)
[2017-06-26] MEDS: Gabapentin 100 MG CAPSULE PO SCH (08:39)
[2017-06-26] MEDS: Metoprolol 100 MG TABLET PO SCH (08:39)
[2017-06-26] MEDS: Multivit/Ca/Min/Fe/FA 1 TAB TABLET PO SCH (08:39)
[2017-06-26] MEDS: Spironolactone 25 MG TABLET PO SCH (08:39)
[2017-06-26] MEDS: Fluticasone/Vilanterol [Breo Ellipta 100-25 Mcg Inh IH SCH (08:40)
--- NOTE | 2017-06-26 10:04 | Discharge Summary ---
Date of Encounter: 06/26/17 Time of Encounter: 08:40 - Discharge Diagnosis (1) Ascites Priority: Primary Status: Acute Comments: Abdomen is soft, still distended. Patient is no longer short of breath. She says she feels much better. Will follow up with primary care. Qualifiers: Ascites type: other type Qualified Code(s): R18.8 - Other ascites (2) Chest pain Priority: Secondary Status: Acute Comments: Patient has intermittent chest pain to left chest with radiation to left shoulder and left elbow. On Tuesday, I discussed with cardiology nurse practitioner increasing Imdur to 60 mg. Patient denies relief from this. Patient and are both insistent that she have a heart catheter while she is here due to prior cardiac testing being negative, then she had an LHC with stents. The pain is reproducible with palpation and deep inspiration. Due to patient's renal function, she needs to be cautious with use of NSAIDs and analgesic pain relievers. Last heart catheter was done in March,. Showed an EF of 50% with severe small vessel disease, most remarkable to 80% stenosis in the PDA. Patient had TTE in January, that showed preserved EF, normal RV size and function, mildly dilated left atrium. This visit troponins negative x 3, chest xray suggestive of CHF. I spoke with cardiology WET PLANT OPERATOR today, no LHC would be done regardless of results due to patient's platelets, which are baseline for her. Patient is agreeable to close follow-up appointment in the office with cardiology. They will discuss cath and further testing at that time. I will send her home with the increased dose of Imdur and she will continue the rest of her cardiac medications. Qualifiers: Chest pain type: precordial pain Qualified Code(s): R07.2 - Precordial pain (3) SIMON (nonalcoholic steatohepatitis) Priority: Secondary Status: Chronic Comments: Chronic. Follows up with hepatology at [facility]. Patient had paracentesis on admission. Patient states that she feels better, it is no longer short of breath, abdomen is less distended and softer, bowel sounds are present. (4) Hyperlipidemia Priority: Secondary Status: Chronic Comments: Chronic. Continue medications. Qualifiers: Hyperlipidemia type: unspecified Qualified Code(s): E78.5 - Hyperlipidemia , unspecified (5) Obstructive sleep apnea Priority: Secondary Status: Chronic Comments: Continue BiPAP use. (6) Pancytopenia Priority: Secondary Status: Chronic Comments: Chronic due to in SIMON. Labs are patient's baseline. Patient follows up with oncology. Patient states that platelet count is usually 38, always less than 40. 48 today. Follow-up with oncology. (7) Obesity (BMI 30-39.9) Priority: Secondary Status: Chronic Comments: Chronic. Lifestyle changes. (8) DVT prophylaxis Priority: Secondary Status: Acute Comments: ICDs ordered, patient up to chair twice a day. (9) CAD (coronary artery disease) Priority: Secondary Status: Chronic Comments: Patient reports atypical chest pain. We have increased Imdur to 60 mg by mouth daily. She will continue the rest of her medications. She will have a follow- up appointment with cardiology. She is to call the office first thing Tuesday morning. Qualifiers: Coronary Disease-Associated Artery/Lesion type: [place] artery [place] vs. transplanted heart: [place] heart Associated angina: without angina Qualified Code(s): I25.10 - Atherosclerotic heart disease of [place] coronary artery without angina pectoris (10) T2DM (type 2 diabetes mellitus) Priority: Secondary Status: Chronic Comments: Patient was hyperglycemic during admission. Patient replaced pump and blood glucose levels have returned to her baseline. Continue pump and follow-up with primary care, diabetic diet. Qualifiers: Diabetes mellitus complication status: without complication Diabetes mellitus [facility] insulin use: with exterminator termite use Qualified Code(s): E11.9 - Type 2 diabetes mellitus without complications; Z79.4 - buttermaker (current) use of insulin - Discharge Medications Prescriptions: Isosorbide MONOnitrate (24 HR) [Imdur] 60 mg PO DAILY #30 tab.er.24h Home Medications: Amitriptyline [Elavil] 10 mg PO HS 12/31/15 [History] Furosemide [Lasix] 40 mg PO DAILY 12/31/15 [History] LORazepam [Ativan] 0.5 mg PO DAILY PRN 12/31/15 [History] Lactulose 30 ml PO DAILY PRN 12/31/15 [History] Lisinopril-HCTZ 20-12.5 [Prinzide 20-12.5] 1 tab PO BID 12/31/15 [History] Loratadine [Claritin] 10 mg PO DAILY 12/31/15 [History] Nitroglycerin [Nitrostat] 0.4 mg SL Q5M PRN 12/31/15 [History] Omeprazole [PriLOSEC] 40 mg PO BID 12/31/15 [History] Ranitidine HCl [Zantac] 150 mg PO HS 12/31/15 [History] metFORMIN [Glucophage] 1,000 mg PO BIDWM 12/31/15 [History] traMADol [Ultram] 50 mg PO Q6HR PRN 12/31/15 [History] Rosuvastatin Calcium [Crestor] 20 mg PO HS 09/11/16 [History] Albuterol Sulfate [Ventolin Hfa] 2 puff IH Q4H PRN 01/31/17 [History] Aspirin 81 mg PO DAILY 01/31/17 [History] Fluticasone Propionate Nasal [Flonase] 1 spray NS DAILY PRN 01/31/17 [History] Fluticasone/Vilanterol [Breo Ellipta 100-25 Mcg INH] 1 puff IH DAILY 01/31/17 [ History] Gabapentin [Neurontin] 100 mg PO BID 01/31/17 [History] Ipratropium/Albuterol Neb [Duoneb] 3 ml IH Q6HR PRN 01/31/17 [History] Meclizine HCl [Verticalm] 25 mg PO DAILY PRN 01/31/17 [History] Melatonin 6 mg PO HS 01/31/17 [History] Multivitamin [One Daily Essential] 1 tab PO DAILY 01/31/17 [History] Subcutaneous Insulin Pump [T:Slim] 1 each MC AD PRN 03/15/17 [History] Metoprolol [Lopressor] 100 mg PO BID #60 tablet 03/17/17 [Rx] Spironolactone [Aldactone] 25 mg PO BID 04/20/17 [History] Isosorbide MONOnitrate (24 HR) [Imdur] 60 mg PO DAILY #30 tab.er.24h 06/26/17 [ Rx] Allergies/Adverse Reactions: 3 Allergy/AdvReac Type Severity Reaction Status Date / Time Hydroxychloroquine Allergy Hives Verified 04/20/17 15:09 [From Plaquenil] atorvastatin [From Lipitor] AdvReac Muscle Pain Verified 04/20/17 15:09 escitalopram [From Lexapro] AdvReac See Verified 04/20/17 15:09 Comments Procedures/tests Complete & Pending: Procedures Performed prior 72 hours Category Date Time Status IR paracentesis ultrasound [IR] Routine IR 06/24/17 Completed Date of admission: 06/23/17 19:30 Primary care physician: Paul Cantu CNP Consults: 06/23/17 20:25 Consult to Interventional Radiology [CONS] Routine Consulting Provider: Radiology Interventional Cols Reason for Consult: Paracentesis Call Completed: No Discharging clinician: Dunia Rajan Anticipated date of discharge: 06/26/17 - Patient Status Disposition: Home, Self-Care Functional capacity at discharge: independent ambulation Overall status at discharge: patient is progressing back to baseline - Discharge Instructions Follow Up With: Paul Cantu CNP [Primary Care Provider] - (We have requested a follow up appointment with Paul Cantu. The office will call you at home with an appointment date and time.) Additional Instructions: Follow up with you PCP in the next 7-10 days for a follow up visit. Call Dr. Lucero's office first thing in the morning to schedule a visit prior to your July visit. I have changed your Imdur to 60mg daily, you can take 2 of your 30mg tablets until they are gone, then start the 60mg tablets. Watch your fluids, no more than 1.5L or about 48-50 oz daily Watch your sodium intake, read labels carefully!! Resume your normal activities as tolerated and start taking your normal home medications again. Call your Batch Freezer Operator for an appointment and let them know that you had a paracentesis. Return to the ER as needed for any other problems or concerns or if your symptoms return or worsen. - Diet and Activity Activity: increase activity as tolerated Diet: diabetic diet, low salt diet Hospital course: Ms. Morgan is a 62 year old female with past medical history of cirrhosis, hypertension, coronary artery disease, hyperlipidemia, diabetes, asthma, GERD, fibromyalgia, thyroid disease who presented to the emergency department with complaints of shortness of breath and intermittent chest pain. She reported progressive dyspnea and worsening ascites over the days preceding admission. She also reported intermittent chest pressure with radiation to left shoulder down the left elbow, which she had throughout the visit. She has not had vomiting, fever, diarrhea, abdominal pain, peripheral edema. She stated she felt she needed another paracentesis because of her worsening ascites and abdominal distention, along with dyspnea. She follows up with hepatology at [facility] for the cirrhosis, also follows up with the cancer center for the pancytopenia secondary to cirrhosis. Patient had therapeutic paracentesis, 1500 mL's of serous ascites was removed. She has denied shortness of breath since procedure. Her chest pain persisted throughout the visit. With verbal consultation with cardiology WET PLANT OPERATOR we agreed to increase her Imdur to 60 mg by mouth daily. This did not alleviate her pain. They remained intermittent happening perhaps once a day. The pain is reproducible with palpation of the left anterior chest, as well as deep inspiration. She has no cough or fever, no leukocytosis. is insistent that I "push for a heart cath" with cardiology since prior testing has been negative and she ended up getting a catheter and a stent. Her last heart catheter was done in March, showed an EF of 50% with severe small vessel disease, most remarkable was 80% stenosis in the PDA. She had a TTE in January, that showed preserved EF, normal RV size and function, mildly dilated left atrium. Her troponins were negative 3, chest x-ray was suggestive of CHF. I spoke with cardiology WET PLANT OPERATOR again this a.m., there is no indication for further testing or LHC at this time and pt is to call the office in the a.m. to have her appointment moved from July to this coming week. Pt denies SOB and states that she has returned to her baseline. Renal function has returned to normal and pt was kept again for uncontrolled hyperglycemia that resolved with use of pump. Pts vitals have remained stable and WNL. Pt will be sent home with rx for increased amount of Imdur and will need to see re etcher and PCP, in addition to film coater after discharge. Pt is stable for discharge. - Time Spent with Patient Total time spent providing and/or coordinating discharge services: Less than 30 minutes - Constitutional Vitals: Temp Pulse Resp BP Pulse Ox 98.0 F 65 15 113/69 95 06/26/17 08:21 06/26/17 08:21 06/26/17 08:21 06/26/17 08:21 06/26/17 08:21 General appearance: Present: cooperative, mild distress, A&O X 3, pleasant, no acute distress, obese, answers questions appropriately - Head Head exam: Present: atraumatic, normal inspection, normocephalic - Eye Eye exam: Present: conjuntiva pink, sclera anicteric - Neck Neck exam general surgery: Present: normal inspection, supple, trachea midline. Absent: lymphadenopathy, tenderness - Respiratory Respiratory exam: Present: CTAB. Absent: accessory muscle use, rales, respiratory distress, rhonchi, wheezes - Cardiovascular Cardiovascular exam: Present: RRR, +S1, +S2. Absent: diastolic murmur, gallop, rubs, systolic murmur - GI/Abdominal GI/Abdominal exam: Present: distended, normal bowel sounds, soft. Absent: rigid , tenderness - Extremities Exam Extremities exam: Present: normal capillary refill, warm, radial pulses palpable and symmetrical. Absent: calf tenderness, cyanotic, pedal edema - Neurological Exam Neurological exam: Present: alert, oriented X3. Absent: facial droop, speech deficit - Skin Skin exam: Present: dry, intact, normal color, warm. Absent: rash - VTE Documentation of Mechanical Device: Intermittent pneumatic compression device
--- NOTE | 2017-06-27 20:54 | Electrocardiograph Report ---
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
== END 2017-06-26 11:40 | disposition home or self-care (01) | DRG 442 ==
LOC: 3BNU 14:59 → EMEROO 14:59 → 3BNU 18:41
PROVIDERS: ADMIT Registered Nurse; ATTEND Registered Nurse

== ENCOUNTER 2017-08-13 23:31 | Inpatient (IN) ==
[2017-08-14] MEDS ORDERED: Aspirin 81 MG TAB.CHEW PO STA (00:43)
[2017-08-14] MEDS ORDERED: 0.9 % Sodium Chloride 1,000 ML IVC ONE (00:43)
[2017-08-14 00:59] LABS: Hematocrit 33.7 % (35.3-44.9); Hemoglobin 11.4 g/dL (11.5-15.4); Immature Granulocytes % 0.4 % (0-4); Mean Corpuscular HGB Conc 33.8 g/dL (31.6-35.5); Mean Corpuscular Hemoglobin 29.8 pg (28.0-33.3); Mean Corpuscular Volume 88.2 fL (83.0-100.0); Red Blood Count 3.82 M/mcL (3.82-4.97); Red Cell Distribution Width 14.6 % (11.5-14.5)
[2017-08-14 01:00] LABS: Basophils % 0.8 %
[2017-08-14 01:01] LABS: Eosinophils % 1.6 %; Immature Platelets 6.5 % (1.1-6.1); Lymphocytes # 0.5 K/mcL (0.6-4.6); Lymphocytes % 20.6 %; Mean Platelet Volume 11.2 fL (9.4-12.4); Monocytes # 0.2 K/mcL (0.0-1.3); Monocytes % 9.7 %; Neutrophils # 1.7 K/mcL (1.6-8.9); Segmented Neutrophils % 66.9 %
[2017-08-14 01:05] LABS: Platelet Count 41 K/mcL (140-400)
[2017-08-14 01:15] LABS: BUN/Creatinine Ratio 17 (6-26); Blood Urea Nitrogen 14 mg/dL (7-20); Carbon Dioxide 25 mEq/L (19-29); Chloride 104 mEq/L (98-109); Glucose 275 mg/dL (70-99); Osmolality,Calculated 294 (280-300); Potassium 3.4 mEq/L (3.5-4.5); Sodium 137 mEq/L (136-145); eGFR For African Americans > 60 (> 60); eGFR For Non-African Americans > 60 (> 60)
[2017-08-14 01:23] LABS: Alanine Aminotransferase 26 Units/L (0-55); Albumin/Globulin Ratio 0.8 (1.1-2.2); Alkaline Phosphatase 118 Units/L (38-126); Aspartate Amino Transferase 39 Units/L (5-34); Bilirubin,Direct 0.7 mg/dL (0.0-0.5); Bilirubin,Indirect 1.2 mg/dL (0.0-1.2); Bilirubin,Total 1.9 mg/dL (0.2-1.2); Globulin 3.6 g/dL (2.4-3.5); Total Protein 6.6 g/dL (6.0-8.3)
[2017-08-14] MEDS ORDERED: Ipratropium/Albuterol Neb 3 ML IH ONE (01:57)
--- NOTE | 2017-08-14 01:59 | Emergency Department Note ---
Disposition Clinical Impression: Malaise and fatigue Chest pain Qualifiers: Chest pain type: chest pain on breathing Qualified Code(s): R07.1 - Chest pain on breathing; R07.81 - Pleurodynia Leukopenia Qualifiers: Leukopenia type: unspecified Qualified Code(s): D72.819 - Decreased white blood cell count, unspecified Fever Qualifiers: Fever type: unspecified Qualified Code(s): R50.9 - Fever, unspecified Disposition: Admitted As Inpatient Condition: Good Referrals: Paul Haider MD [Primary Care Provider] - Time of Disposition: : General Adult HPI - General Chief complaint: ED Chest Pain Stated complaint: fever,cough,toby, chest pressure Time Seen by Provider: 08/14/17 00:22 Source: patient Mode of arrival: ambulatory Limitations: no limitations Nursing Notes Reviewed: Yes Vital Signs Reviewed: Yes - History of Present Illness HPI Narrative: 62-year-old female presents emergency room with complaint of cough fever and shortness of breath. She has known COPD as well as cardiac related disease. She is scheduled for catheterization this coming . Patient denies any chest pain but has had persistent cough and fever. Several family members have had similar illness. No other complaints or issues on this time. She does want to have an evaluation. Onset (ago): day(s) Location: chest Radiation: non-radiation Pain Severity: moderate Pain Scale: 5 Quality: aching Consistency: constant Improves with: rest Associated symptoms: Reports: fever/chills, malaise Treatments Prior to Arrival: none - Related Data Home Medications Medication Instructions Recorded Confirmed Amitriptyline [Elavil] 10 mg PO HS 12/31/15 07/20/17 Furosemide [Lasix] 40 mg PO DAILY 12/31/15 07/20/17 LORazepam [Ativan] 0.5 mg PO DAILY PRN 12/31/15 07/20/17 Lactulose 30 ml PO DAILY PRN 12/31/15 07/20/17 Lisinopril-HCTZ 20-12.5 [Prinzide 1 tab PO BID 12/31/15 07/20/17 20-12.5] Loratadine [Claritin] 10 mg PO DAILY 12/31/15 07/20/17 Nitroglycerin [Nitrostat] 0.4 mg SL Q5M PRN 12/31/15 07/20/17 Omeprazole [PriLOSEC] 40 mg PO BID 12/31/15 07/20/17 Ranitidine HCl [Zantac] 150 mg PO HS 12/31/15 07/20/17 metFORMIN [Glucophage] 1,000 mg PO BIDWM 12/31/15 07/20/17 traMADol [Ultram] 50 mg PO Q6HR PRN 12/31/15 07/20/17 Rosuvastatin Calcium [Crestor] 20 mg PO HS 09/11/16 07/20/17 Albuterol Sulfate [Ventolin Hfa] 2 puff IH Q4H PRN 01/31/17 07/20/17 Aspirin 81 mg PO DAILY 01/31/17 07/20/17 Fluticasone Propionate Nasal 1 spray NS DAILY PRN 01/31/17 07/20/17 [Flonase] Fluticasone/Vilanterol [Breo 1 puff IH DAILY 01/31/17 07/20/17 Ellipta 100-25 Mcg INH] Gabapentin [Neurontin] 100 mg PO BID 01/31/17 07/20/17 Ipratropium/Albuterol Neb [Duoneb] 3 ml IH Q6HR PRN 01/31/17 07/20/17 Meclizine HCl [Verticalm] 25 mg PO DAILY PRN 01/31/17 07/20/17 Melatonin 6 mg PO HS 01/31/17 07/20/17 Multivitamin [One Daily Essential] 1 tab PO DAILY 01/31/17 07/20/17 Subcutaneous Insulin Pump [T:Slim] 1 each AD PRN 03/15/17 07/20/17 Spironolactone [Aldactone] 25 mg PO BID 04/20/17 07/20/17 Isosorbide MONOnitrate (24 HR) 30 mg PO DAILY 07/20/17 07/20/17 [Imdur] Previous Rx's Medication Instructions Recorded Metoprolol [Lopressor] 100 mg PO BID #60 tablet 03/17/17 Allergies Allergy/AdvReac Type Severity Reaction Status Date / Time Hydroxychloroquine Allergy Hives Verified 07/20/17 13:49 [From Plaquenil] atorvastatin [From Lipitor] AdvReac Muscle Pain Verified 07/20/17 13:49 escitalopram [From Lexapro] AdvReac See Verified 07/20/17 13:49 Comments All systems ED: reviewed and negative except as stated. Review of Systems: As Per HPI Constitutional: Reports: fever, chills. Denies: weakness, weight change Cardiovascular: Denies: chest pain, palpitations Respiratory: Reports: cough. Denies: dyspnea, wheezes, hemoptysis Gastrointestinal: Denies: abdominal pain, nausea, vomiting, diarrhea Musculoskeletal: Denies: back pain, neck pain Past Medical History - Past Medical History Attestation: Yes The following information was validated with the patient. Source: patient Medical history: Reports: coronary artery disease, diabetes, fibromyalgia, GERD , hyperlipidemia, hypertension, liver disease, myocardial infarction, thyroid disease, other Surgical history: Reports: hysterectomy, other Psychiatric history: Reports: anxiety - Social History Smoking Status: Never smoker Smokeless Tobacco Status: No Alcohol use: Reports: none Drug use: Reports: none Physical Exam - General Limitations: no limitations General appearance: alert, in no apparent distress - Head Head exam: atraumatic, normocephalic, normal inspection - Neck Neck exam: Present: normal inspection, full ROM, trachea midline. Absent: tenderness, meningismus, lymphadenopathy - Chest Chest inspection: Present: normal inspection, symmetric chest wall rise. Absent : tenderness - Respiratory Respiratory exam: Present: normal lung sounds bilaterally. Absent: respiratory distress, accessory muscle use - Cardiovascular Cardiovascular exam: Present: regular rate, normal rhythm, normal heart sounds - Abdominal Exam Abdominal exam: Present: soft, Non-Tender, normal bowel sounds. Absent: tenderness, distention, guarding, rebound, rigidity, Mittal's sign, Rovsing's sign, tenderness at McBurney's Point - Extremities Exam Extremities exam: Present: normal inspection, full ROM, normal capillary refill. Absent: tenderness - Back Exam Back exam: Present: normal inspection, full ROM. Absent: tenderness, CVA tenderness (R), CVA tenderness (L) - Neurological Exam Neurological exam: Present: alert, oriented X3, CN II-XII intact, normal gait - Skin Skin exam: Present: warm, dry, intact, normal color Course Course Narrative: Patient seen and examined the time of arrival. See history of present illness. 62-year-old female with multiple medical issues including coronary artery disease, myocardial infarction, hypertension hyperlipidemia, COPD presents to emergency room with complaint of cough congestion fever, shortness of breath, chest pressure. She scheduled a catheterization on Tuesday of this coming week. She has had several sick contacts at home had similar issues but she has had nonproductive sputum along with chest pressure and tightness. Cardiac related symptoms are concerning on initial presentation because of her history. Patient to have EKG chest x-ray labs including CBC chemistry troponin. She also liver function testing and ammonia collected consideration does have cirrhosis and has required paracentesis. She did have a paracentesis completed 3 days ago. She has denied any abdominal pain she has no discomfort. Lungs are clear but have diminished aeration. Breathing treatments to be provided. Heart is regular with no acute murmurs or changes in presentation. Abdomen is distended but soft. No peritoneal symptoms. Bowel sounds are present. She has no redness no guarding no rigidity. Has no CVA tenderness at this time. She moves all 4 extremities with purpose. She has no signs of pitting edema. Patient is concerning for cardiac related issues secondary to her cardiac history as well as possible viral syndrome. She describes generalized malaise and muscle aches but does not have a specific symptoms otherwise. Patient has no meningeal symptoms at this point she has full range of motion of the neck. Definitive evaluation be completed and then most likely admission for cardiac evaluation and symptom control. Patient is otherwise stable resting comfortably in the bed at this time. - Reevaluation(s) Reevaluation #1: patient found to have leukopenia with stable chemistry panel this time. BNP is 110 which appears to be chronic. Troponin is normal. EKG does not show any diagnostic changes at this time. She has sinus rhythm with no acute morphology abnormalities. Intervals are within normal limits. No signs of WPW, Brugada, prolongation of intervals at this time. EKG is compared from previous EKG on 06/10/17. Patient does not have any acute signs of pneumonia. Will not treat at this point with antibiotics. She is influenza negative. Flu is to be provided along with breathing treatments. Symptoms controlled to be obtained. Patient will require admission for definitive management and further evaluation. Patient is comfortable with this plan. No other concerns or issues noted this time. We will continue to monitor in emergency room until the admission process is completed Time: 01:11 Reevaluation #2: Patient was discussed with the hospitalist Dr. Gonzalez. Initial urinalysis completed here. No other infectious etiology noted. Patient will be admitted for cardiac evaluation at this time. Urine is infected and patient was started on antibiotics prior to going to the floor. Patient denied any dysuria or lower abdominal discomfort or cramping. No other concerns or issues noted this point. Patient is stable and in good medical condition at time of admission. We will continue to monitor the emergency room and to the admission process is completed Time: 02:30 Vital Signs Temperature 99.5 F 08/13/17 23:37 Pulse Rate 96 08/13/17 23:37 Respiratory Rate 20 08/13/17 23:37 Blood Pressure 141/68 08/13/17 23:37 O2 Sat by Pulse Oximetry 93 08/13/17 23:37 Temperature 99.5 F 08/13/17 23:37 Pulse Rate 94 08/14/17 01:20 EDT Respiratory Rate 16 08/14/17 01:20 EDT Blood Pressure 145/97 08/14/17 01:20 EDT O2 Sat by Pulse Oximetry 96 08/14/17 01:20 EDT Oxygen Delivery Oxygen Delivery Room Air Medical Decision Making - MDM Narrative Medical decision making narrative: Fever, cough, generalized malaise, chest pressure, shortness of breath - Medical Records Medical records reviewed: Yes I reviewed the patient's medical records. - Lab Data Lab results reviewed: Yes I reviewed the patient's lab results. Result diagrams: 08/14/17 00:52 08/14/17 00:52 Lab Results 08/14/17 08/14/17 08/14/17 Range/Units 00:52 00:52 00:52 WBC 2.5 L (4.3-11.1) K/mcL RBC 3.82 (3.82-4.97) M/mcL Hgb 11.4 L (11.5-15.4) g/dL Hct 33.7 L (35.3-44.9) % MCV 88.2 (83.0-100.0) fL MCH 29.8 (28.0-33.3) pg MCHC 33.8 (31.6-35.5) g/dL RDW 14.6 H (11.5-14.5) % Plt Count 41 L (140-400) K/mcL MPV 11.2 (9.4-12.4) fL Immature Gran % 0.4 (0-4) % Seg Neutrophils % 66.9 % Lymphocytes % 20.6 % Monocytes % 9.7 % Eosinophils % 1.6 % Basophils % 0.8 % Neutrophils # 1.7 (1.6-8.9) K/mcL Lymphocytes # 0.5 L (0.6-4.6) K/mcL Monocytes # 0.2 (0.0-1.3) K/mcL Eosinophils # 0.0 (0.0-0.6) K/mcL Basophils # 0.0 (0.0-0.2) K/mcL Immature Plt Fraction 6.5 H (1.1-6.1) % Sodium 137 (136-145) mEq/L Potassium 3.4 L (3.5-4.5) mEq/L Chloride 104 (98-109) mEq/L Carbon Dioxide 25 (19-29) mEq/L BUN 14 (7-20) mg/dL Creatinine 0.82 (0.57-1.11) mg/dL Est GFR ( Amer) > 60 (> 60) Est GFR (Non-Af Amer) > 60 (> 60) BUN/Creatinine Ratio 17 (6-26) Glucose 275 H (70-99) mg/dL Calculated Osmolality 294 (280-300) Lactic Acid 2.0 (0.5-2.2) mmol/L Calcium 9.0 (8.6-10.8) mg/dL Troponin I (0-0.03) ng/mL B-Natriuretic Peptide (0-100) pg/mL 08/14/17 08/14/17 Range/Units 00:52 00:52 WBC (4.3-11.1) K/mcL RBC (3.82-4.97) M/mcL Hgb (11.5-15.4) g/dL Hct (35.3-44.9) % MCV (83.0-100.0) fL MCH (28.0-33.3) pg MCHC (31.6-35.5) g/dL RDW (11.5-14.5) % Plt Count (140-400) K/mcL MPV (9.4-12.4) fL Immature Gran % (0-4) % Seg Neutrophils % % Lymphocytes % % Monocytes % % Eosinophils % % Basophils % % Neutrophils # (1.6-8.9) K/mcL Lymphocytes # (0.6-4.6) K/mcL Monocytes # (0.0-1.3) K/mcL Eosinophils # (0.0-0.6) K/mcL Basophils # (0.0-0.2) K/mcL Immature Plt Fraction (1.1-6.1) % Sodium (136-145) mEq/L Potassium (3.5-4.5) mEq/L Chloride (98-109) mEq/L Carbon Dioxide (19-29) mEq/L BUN (7-20) mg/dL Creatinine (0.57-1.11) mg/dL Est GFR ( Amer) (> 60) Est GFR (Non-Af Amer) (> 60) BUN/Creatinine Ratio (6-26) Glucose (70-99) mg/dL Calculated Osmolality (280-300) Lactic Acid (0.5-2.2) mmol/L Calcium (8.6-10.8) mg/dL Troponin I 0.00 (0-0.03) ng/mL B-Natriuretic Peptide 110 H (0-100) pg/mL - Radiology Data Radiology results reviewed: Yes I reviewed the patient's radiology results. Chest x-ray stable for acute intrathoracic pathology. Reviewed by myself and confirmed by the radiologist - EKG Data EKG #1 EKG attestation: Yes I reviewed and interpreted this EKG. EKG results narrative: EKG collected at 2337. Ventricular rate of 97. VT interval 140. QRS duration of 88. QTC of 385. No axis deviation noted. Patient has stable evaluation of a sinus rhythm. Intervals are within normal limits. No signs of WPW, Brugada, interval abnormality at this time. No ST segment elevation or reciprocal changes in changes at this time
[2017-08-14] MEDS ORDERED: Fluticasone Propionate Nasal 50 MCG/SPRAY BOTTLE NS PRN (07:51)
[2017-08-14] MEDS ORDERED: Ipratropium/Albuterol Neb 3 ML IH PRN (07:51)
[2017-08-14] MEDS ORDERED: *HR* LORazepam 0.5 MG TABLET PO PRN (07:51)
[2017-08-14] MEDS ORDERED: Lactulose Oral Soln 20 GM/30 ML UDC PO PRN (07:54)
--- NOTE | 2017-08-14 07:58 | Internal Med History&Physical ---
Date of Encounter: 08/22/17 Time of Encounter: 07:55 Assessment and Plan (1) Acute bronchitis Status: Acute Suspect viral etiology. However given patient comorbidities and history of asthma I will keep the patient on azithromycin 500 mg daily. Influenza is negative. 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 she also has known esophageal varices (3) Pancytopenia Status: Acute Due to liver cell failure and hypersplenism. (4) T2DM (type 2 diabetes mellitus) Status: Chronic Sliding scale insulin Qualifiers: Diabetes mellitus complication status: with hyperglycemia Diabetes mellitus clinical program consultant insulin use: with assisted use Qualified Code(s): E11.65 - Type 2 diabetes mellitus with hyperglycemia; Z79.4 - half-way (current) use of insulin; Z79.4 - corporate quality manager (current) use of insulin; Z79.4 - half-way ( current) use of insulin; Z79.4 - corporate quality manager (current) use of insulin (5) Coronary artery disease Status: Chronic Patient scheduled to have a coronary angiogram on Tuesday. She has a history of prior stenting 2012. She had presented recently with chest pain to the hospital and plan is for angiogram. She is on aspirin 81 [place] [id number] Qualifiers: Coronary Disease-Associated Artery/Lesion type: [place] artery [place] vs. transplanted heart: [place] heart Associated angina: without angina Qualified Code(s): I25.10 - Atherosclerotic heart disease of [place] coronary artery without angina pectoris Internal Medicine - H&P: HPI Chief complaint: sob, cough History of present illness: Ms. Morgan is a 62 year old female multiple medical problems including asthma , liver cirrhosis with pancytopenia presents to the emergency room today with the main complain of shortness of breath and cough. Over the past 2 weeks patient has been having nonproductive cough. Shortness of breath with less than ordinary exertion. Patient has been having subjective fevers and chills. Tmax since arrival to the hospital is 99.5. Patient mentioned that her was sick over this. Patient has bilateral lower extremity edema but does not think that this is any more than her baseline. Patient never smoked and denies prior history of COPD. Patient denies any sputum production. Patient has chest pain only on breathing. Past Med Surg Social Fam HX - Past Medical History Medical history: coronary artery disease, diabetes, fibromyalgia, GERD, hyperlipidemia, hypertension, liver disease, myocardial infarction, thyroid disease, other Psychiatric history: anxiety - Past Surgical History Surgical History: hysterectomy, other - Social History Smoking Status: Never smoker Smokeless Tobacco Status: No Alcohol use: none Drug use: none - Family History Mother Living Status: Hx Family Cardiac Disorders: Yes (CAD) Hx Family Respiratory Disorders: Yes Father Living Status: Hx Family Cardiac Disorders: Yes Internal Medicine - H&P: Meds Amitriptyline [Elavil] 10 mg PO HS 12/31/15 [History] Furosemide [Lasix] 40 mg PO DAILY 12/31/15 [History] LORazepam [Ativan] 0.5 mg PO DAILY PRN 12/31/15 [History] Lactulose 30 ml PO DAILY PRN 12/31/15 [History] Lisinopril-HCTZ 20-12.5 [Prinzide 20-12.5] 1 tab PO BID 12/31/15 [History] Loratadine [Claritin] 10 mg PO DAILY 12/31/15 [History] Nitroglycerin [Nitrostat] 0.4 mg SL Q5M PRN 12/31/15 [History] Omeprazole [PriLOSEC] 40 mg PO BID 12/31/15 [History] Ranitidine HCl [Zantac] 150 mg PO HS 12/31/15 [History] metFORMIN [Glucophage] 1,000 mg PO BIDWM 12/31/15 [History] traMADol [Ultram] 50 mg PO Q6HR PRN 12/31/15 [History] Rosuvastatin Calcium [Crestor] 20 mg PO HS 09/11/16 [History] Albuterol Sulfate [Ventolin Hfa] 2 puff IH Q4H PRN 01/31/17 [History] Aspirin 81 mg PO DAILY 01/31/17 [History] Fluticasone Propionate Nasal [Flonase] 1 spray NS DAILY PRN 01/31/17 [History] Fluticasone/Vilanterol [Breo Ellipta 100-25 Mcg INH] 1 puff IH DAILY 01/31/17 [ History] Gabapentin [Neurontin] 100 mg PO BID 01/31/17 [History] Ipratropium/Albuterol Neb [Duoneb] 3 ml IH Q6HR PRN 01/31/17 [History] Meclizine HCl [Verticalm] 25 mg PO DAILY PRN 01/31/17 [History] Melatonin 6 mg PO HS 01/31/17 [History] Multivitamin [One Daily Essential] 1 tab PO DAILY 01/31/17 [History] Subcutaneous Insulin Pump [T:Slim] 1 each MC AD PRN 03/15/17 [History] Metoprolol [Lopressor] 100 mg PO BID #60 tablet 03/17/17 [Rx] Spironolactone [Aldactone] 25 mg PO BID 04/20/17 [History] Isosorbide MONOnitrate (24 HR) [Imdur] 30 mg PO DAILY 07/20/17 [History] Azithromycin [Zithromax] 500 mg PO DAILY #6 tablet 08/17/17 [Rx] 3 Allergy/AdvReac Type Severity Reaction Status Date / Time Hydroxychloroquine Allergy Hives Verified 07/20/17 13:49 [From Plaquenil] atorvastatin [From Lipitor] AdvReac Muscle Pain Verified 07/20/17 13:49 escitalopram [From Lexapro] AdvReac See Verified 07/20/17 13:49 Comments All Systems PM: A 10-system review of systems was performed and is negative for pertinent findings except as documented above in the HPI. Review of systems: 10 point review of systems is negative except for HPI - Constitutional Vitals: Temp Pulse Resp BP Pulse Ox 98.6 F 90 19 130/70 94 08/14/17 07:16 08/14/17 07:16 08/14/17 07:16 08/14/17 07:16 08/14/17 07:16 Exam: Gen.: patient is alert oriented times 3 cardiac: normal S1 S2 no additional sounds or murmurs chest: no active wheezing or bronchial breathing abdomen soft nontender nondistended normal bowel sounds lower extremity 1+ swelling. Neuro: no new focal deficits Internal Med - H&P Results - Labs CBC & Chem 7: 08/17/17 03:54 08/17/17 03:54
[2017-08-14] MEDS: Furosemide 20 MG/2 ML VIAL IVP SCH (08:52)
[2017-08-14] MEDS: Azithromycin 250 MG TABLET PO SCH (08:52)
[2017-08-14] MEDS: Isosorbide MONOnitrate (24 HR) 30 MG TAB.ER.24H PO SCH (08:52)
[2017-08-14] MEDS: Aspirin 81 MG TAB.CHEW PO SCH (08:52)
[2017-08-14] MEDS: Metoprolol 100 MG TABLET PO SCH ×2 (08:52→20:01)
[2017-08-14 09:20] LABS: Bilirubin,Urine Small (Negative); Blood,Urine Negative (Negative); Clarity,Urine Clear (Clear); Color,Urine Dark Yellow (Yellow); Glucose,Urine (UA) >=1000 mg/dL (Normal); Ketones,Urine Negative (Negative); Leukocyte Esterase,Urine Negative (Negative); Nitrite,Urine Negative (Negative); PH,Urine 5.5 pH Units (5.0-8.0); Protein,Urine Negative (Neg-Trace); Specific Gravity,Urine > 1.030 (1.010-1.025); Urobilinogen,Urine Normal (Normal)
[2017-08-14] MEDS: Insulin LISPRO 300 UNITS/3 ML VIAL SQ SCH ×3 (12:39→22:17)
[2017-08-15 04:04] LABS: Basophils % 0.4 %
[2017-08-15 04:06] LABS: Eosinophils # 0.1 K/mcL (0.0-0.6); Eosinophils % 2.7 %; Hematocrit 31.4 % (35.3-44.9); Hemoglobin 10.6 g/dL (11.5-15.4); Immature Platelets 7.4 % (1.1-6.1); Lymphocytes # 0.6 K/mcL (0.6-4.6); Lymphocytes % 25.6 %; Mean Corpuscular HGB Conc 33.8 g/dL (31.6-35.5); Mean Corpuscular Hemoglobin 30.1 pg (28.0-33.3); Mean Corpuscular Volume 89.2 fL (83.0-100.0); Mean Platelet Volume 11.9 fL (9.4-12.4); Monocytes # 0.3 K/mcL (0.0-1.3); Monocytes % 11.7 %; Neutrophils # 1.3 K/mcL (1.6-8.9); Red Blood Count 3.52 M/mcL (3.82-4.97); Red Cell Distribution Width 14.7 % (11.5-14.5); Segmented Neutrophils % 59.6 %
[2017-08-15 04:07] LABS: Platelet Count 39 K/mcL (140-400)
[2017-08-15 04:21] LABS: Alanine Aminotransferase 22 Units/L (0-55); Albumin 2.6 g/dL (3.5-5.0); Albumin/Globulin Ratio 0.7 (1.1-2.2); Alkaline Phosphatase 118 Units/L (38-126); Aspartate Amino Transferase 40 Units/L (5-34); BUN/Creatinine Ratio 26 (6-26); Bilirubin,Total 1.5 mg/dL (0.2-1.2); Blood Urea Nitrogen 18 mg/dL (7-20); Calcium 8.5 mg/dL (8.6-10.8); Carbon Dioxide 24 mEq/L (19-29); Chloride 108 mEq/L (98-109); Globulin 3.5 g/dL (2.4-3.5); Glucose 112 mg/dL (70-99); Magnesium 1.5 mg/dL (1.6-2.6); Osmolality,Calculated 293 (280-300); Potassium 3.4 mEq/L (3.5-4.5); Sodium 140 mEq/L (136-145); Total Protein 6.1 g/dL (6.0-8.3); eGFR For African Americans > 60 (> 60); eGFR For Non-African Americans > 60 (> 60)
[2017-08-15] MEDS: Insulin LISPRO 300 UNITS/3 ML VIAL SQ SCH ×4 (07:33→21:01)
[2017-08-15] MEDS: Azithromycin 250 MG TABLET PO SCH (08:28)
[2017-08-15] MEDS: Aspirin 81 MG TAB.CHEW PO SCH (08:28)
[2017-08-15] MEDS: Metoprolol 100 MG TABLET PO SCH ×2 (08:28→21:02)
[2017-08-15] MEDS: Furosemide 20 MG/2 ML VIAL IVP SCH (08:28)
[2017-08-15] MEDS: Isosorbide MONOnitrate (24 HR) 30 MG TAB.ER.24H PO SCH (08:28)
[2017-08-15] MEDS ORDERED: D5% in Water 1,000 ML IVC PRN (11:31)
[2017-08-15] MEDS ORDERED: Dextrose Gel 15 GM PO PRN ×2 (11:31)
[2017-08-15] MEDS ORDERED: *HR* Dextrose 50 % in Water (Syg) 50 ML SYRINGE IVP PRN (11:31)
[2017-08-15] MEDS ORDERED: Potassium Chloride Elixir 20 MEQ/15 ML UDC PO ONE (11:33)
--- NOTE | 2017-08-15 15:05 | Internal Med Progress Note ---
Date of Encounter: 08/15/17 Time of Encounter: 12:00 - Assessment and plan (1) Bronchitis Current Visit: Yes Status: Acute Assessment and plan: improving; continue bronchodilators and Azithromycin. supplemental O2. Supportive care. Influenza A and B antigen negative. Preliminary blood cultures negative. (2) Chest pain Current Visit: Yes Status: Acute Assessment and plan: Could be related to acute bronchitis. Consider ACS. Serial troponins remained negative. Continue aspirin, beta erwin and statin. Patient continues to report generalized weakness and fatigue. She follows with cardiology as outpatient, has been scheduled for left heart catheterization tomorrow. We will change patient to full admission and consult cardiology for left heart catheterization. Continue telemetry monitoring. Qualifiers: Chest pain type: precordial pain Qualified Code(s): R07.2 - Precordial pain (3) SIMON (nonalcoholic steatohepatitis) Current Visit: Yes Status: Chronic Assessment and plan: Patient has history of cirrhosis and ascites due to nonalcoholic steatohepatitis. She underwent paracentesis 4 days ago but continues to have abdominal distention and shortness of breath. Will plan for ultrasound-guided paracentesis by IR. Continue IV Lasix. (4) Hyperlipidemia Current Visit: Yes Status: Chronic Assessment and plan: Continue statin. Qualifiers: Hyperlipidemia type: unspecified Qualified Code(s): E78.5 - Hyperlipidemia , unspecified (5) Obstructive sleep apnea Current Visit: Yes Status: Chronic (6) Pancytopenia Current Visit: Yes Status: Chronic Assessment and plan: Likely related to underlying liver disease. Currently stable. Avoid medical anticoagulation. (7) Ascites Current Visit: Yes Status: Acute Qualifiers: Ascites type: other type Qualified Code(s): R18.8 - Other ascites (8) Coronary artery disease Current Visit: Yes Status: Chronic Assessment and plan: Plan as above. Cardiology consulted for possible left heart catheterization tomorrow. Qualifiers: Coronary Disease-Associated Artery/Lesion type: [place] artery [place] vs. transplanted heart: [place] heart Associated angina: without angina Qualified Code(s): I25.10 - Atherosclerotic heart disease of [place] coronary artery without angina pectoris (9) T2DM (type 2 diabetes mellitus) Current Visit: Yes Status: Chronic Assessment and plan: Noted to have uncontrolled blood sugars. Start basal bolus insulin regimen. Continue Accu-Chek blood glucose monitoring. Diabetic diet. Check hemoglobin A1c. Qualifiers: Diabetes mellitus complication status: with hyperglycemia Diabetes mellitus long term acute care registered nurse insulin use: with senior care use Qualified Code(s): E11.65 - Type 2 diabetes mellitus with hyperglycemia; Z79.4 - care home (current) use of insulin; Z79.4 - computer terminal operator (current) use of insulin; Z79.4 - computer terminal operator ( current) use of insulin; Z79.4 - care home (current) use of insulin - Subjective Interval history: Reports feeling tired; improving dyspnea, chest tightness; no nausea, vomiting but does have abdominal distension; had paracentesis don e last week with removal of more than 2L fluid per her at bedside; - Constitutional Vitals: Temp Pulse Resp BP Pulse Ox 98.1 F 73 16 112/60 97 08/15/17 10:43 08/15/17 10:43 08/15/17 10:43 08/15/17 10:43 08/15/17 10:43 General appearance: Present: mild distress, A&O X 3, answers questions appropriately - Respiratory Respiratory exam: Present: CTAB (coarse breath sounds B/L). Absent: accessory muscle use, rales, rhonchi - Cardiovascular Cardiovascular exam: Present: RRR, +S1, +S2. Absent: diastolic murmur, gallop, rubs, systolic murmur - GI/Abdominal GI/Abdominal exam: Present: distended (ascites+), normal bowel sounds, soft, no peritoneal signs. Absent: tenderness - Extremities Exam Extremities exam: Present: full ROM, warm, radial pulses palpable and symmetrical. Absent: calf tenderness, cyanotic, pedal edema - Neurological Exam Neurological exam: Present: CN II-XII intact, oriented X3, no focal deficits. Absent: pronater drift, facial droop, speech deficit Internal Medicine: Result - Labs CBC & Chem 7: 08/15/17 03:23 08/15/17 03:23 Labs: Short CBC 08/15/17 Range/Units 03:23 WBC 2.2 L (4.3-11.1) K/mcL Hgb 10.6 L (11.5-15.4) g/dL Hct 31.4 L (35.3-44.9) % Plt Count 39 L (140-400) K/mcL Neutrophils # 1.3 L (1.6-8.9) K/mcL BMP 08/15/17 03:23 Sodium 140 Potassium 3.4 L Chloride 108 Carbon Dioxide 24 BUN 18 Creatinine 0.68 Glucose 112 H Calcium 8.5 L Liver Function 08/15/17 Range/Units 03:23 Total Bilirubin 1.5 H (0.2-1.2) mg/dL AST 40 H (5-34) Units/L ALT 22 (0-55) Units/L Alkaline Phosphatase 118 (38-126) Units/L Albumin 2.6 L (3.5-5.0) g/dL Consult Discharge Plan - Plan Referrals: Paul Haider MD [Primary Care Provider] -
--- NOTE | 2017-08-15 17:00 | Electrocardiograph Report ---
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
[2017-08-15] MEDS: Insulin DETEMIR 100 UNIT/ML X5UNITS SQ SCH (21:01)
[2017-08-16 05:52] LABS: Basophils % 0.9 %; Eosinophils # 0.1 K/mcL (0.0-0.6); Eosinophils % 3.3 %; Hematocrit 33.7 % (35.3-44.9); Hemoglobin 11.1 g/dL (11.5-15.4); Lymphocytes # 0.5 K/mcL (0.6-4.6); Lymphocytes % 24.6 %; Mean Corpuscular HGB Conc 32.9 g/dL (31.6-35.5); Mean Corpuscular Hemoglobin 29.5 pg (28.0-33.3); Mean Corpuscular Volume 89.6 fL (83.0-100.0); Mean Platelet Volume 10.9 fL (9.4-12.4); Monocytes # 0.2 K/mcL (0.0-1.3); Monocytes % 9.5 %; Neutrophils # 1.3 K/mcL (1.6-8.9); Red Blood Count 3.76 M/mcL (3.82-4.97); Red Cell Distribution Width 14.5 % (11.5-14.5); Segmented Neutrophils % 61.7 %
[2017-08-16 05:53] LABS: Platelet Count 37 K/mcL (140-400)
[2017-08-16 06:10] LABS: Hemoglobin A1C 9.3 %
[2017-08-16 06:14] LABS: Alanine Aminotransferase 25 Units/L (0-55); Albumin 2.7 g/dL (3.5-5.0); Albumin/Globulin Ratio 0.8 (1.1-2.2); Alkaline Phosphatase 125 Units/L (38-126); Aspartate Amino Transferase 43 Units/L (5-34); BUN/Creatinine Ratio 28 (6-26); Bilirubin,Total 1.2 mg/dL (0.2-1.2); Blood Urea Nitrogen 19 mg/dL (7-20); Calcium 8.7 mg/dL (8.6-10.8); Carbon Dioxide 25 mEq/L (19-29); Chloride 108 mEq/L (98-109); Globulin 3.5 g/dL (2.4-3.5); Glucose 151 mg/dL (70-99); Magnesium 1.9 mg/dL (1.6-2.6); Osmolality,Calculated 293 (280-300); Sodium 139 mEq/L (136-145); Total Protein 6.2 g/dL (6.0-8.3); eGFR For African Americans > 60 (> 60); eGFR For Non-African Americans > 60 (> 60)
--- NOTE | 2017-08-16 08:12 | Pre-Sedation Evaluation ---
Pre-sedation evaluation - Pre-sedation checklist Date of procedure: 08/16/17 Procedure: [facility] Recent Vitals: Last Vital Signs Temp 97.5 F L 08/16/17 07:24 Pulse 73 08/16/17 07:24 Resp 17 08/16/17 07:24 BP 111/69 08/16/17 07:24 Pulse Ox 94 08/16/17 07:24 H&P (including ROS) documented in medical record: Yes Previous reaction to sedatives/anesthetics: No Dietary Status: NPO after Midnight Dentition: No loose teeth or bridges ASA Classification *see protocol: CLASS II-Mild systemic disease Plan of Care: Pt appropriate candidate for procedure/moderate/conscious sedation , Risks/benefits of procedure/sedation discussed w/ patient/family
[2017-08-16] MEDS: Insulin LISPRO 300 UNITS/3 ML VIAL SQ SCH ×4 (08:14→21:23)
--- NOTE | 2017-08-16 08:36 | Cardiology History & Physical ---
Date of Encounter: 08/16/17 Time of Encounter: 08:35 Assessment and Plan (1) Dyspnea Current Visit: Yes Status: Acute Suspect symptoms are a combination of bronchitis as well as ascites. Given recurrent ascites requiring multiple paracentesis - consideration for more permanent procedure should be undertaken. The assessment and plan as outlined above was discussed with the patient and/or family members who expressed understanding and agreement. All questions were answered. Qualifiers: Dyspnea type: dyspnea on exertion Qualified Code(s): R06.09 - Other forms of dyspnea (2) Liver cirrhosis secondary to SIMON Current Visit: Yes Status: Acute FU [facility]. The assessment and plan as outlined above was discussed with the patient and/or family members who expressed understanding and agreement. All questions were answered. (3) Ascites Current Visit: No Status: Acute Consider recurrent paracentesis and/or transfer to [facility] for more permanent therapy (ie TIPS) if ascites is difficult to control. Will plan to avoid BB and continue diuresis with lasix/aldactone. The assessment and plan as outlined above was discussed with the patient and/or family members who expressed understanding and agreement. All questions were answered. Qualifiers: Ascites type: other type Qualified Code(s): R18.8 - Other ascites (4) CAD (coronary artery disease) Current Visit: No Status: Chronic Stable symptoms. Higher risk of complication for LHC given pancytopenia and fpc issues with bleeding with recurrent esophageal varices. The assessment and plan as outlined above was discussed with the patient and/or family members who expressed understanding and agreement. All questions were answered. Qualifiers: Coronary Disease-Associated Artery/Lesion type: [place] artery [place] vs. transplanted heart: [place] heart Associated angina: without angina Qualified Code(s): I25.10 - Atherosclerotic heart disease of [place] coronary artery without angina pectoris History of Present Illness Chief complaint: dyspnea/ascites HPI: Ms. Morgan is a 62 year old female with history of DM leading to SIMON progressing to cirrhosis complicated by recurrent ascites requiring paracentesis as well as esophageal varices sp banding x 3 (last recently this year), pancytopenia 2/2 cirrhosis with Plt count <50. Additionally she has CAD sp PCI 2012. Recently hospitalized with chest pain with negative stress test and upon followup in clinic had complaint of continued cp despite Imdur 30mg. Patient and SO were adamant about proceeding with LHC despite known risk bc of thrombocytopenia and recurrent esophageal varices requiring banding. She had repeat paracentesis Tuesday with improvement in symptoms but came to ED Sat evening with fevers, chills and abdominal distension accompanied by dyspnea and significant fatigue. She notes very minimal edema. She denies chest/jaw/ arm discomfort at this time. Past Med Surg Social Fam HX - Past Medical History Medical history: cirrhosis (sp esophageal variceal banding x 3, pancytopenia and recurrent ascites sp paracentesis), coronary artery disease, diabetes, fibromyalgia, GERD, hyperlipidemia, hypertension, liver disease, myocardial infarction, thyroid disease, other Psychiatric history: anxiety - Past Surgical History Surgical History: hysterectomy, other - Social History Smoking Status: Never smoker Smokeless Tobacco Status: No Alcohol use: none Drug use: none - Family History Mother Living Status: Hx Family Cardiac Disorders: Yes (CAD) Hx Family Respiratory Disorders: Yes Father Living Status: Hx Family Cardiac Disorders: Yes Medications and Allergies Amitriptyline [Elavil] 10 mg PO HS 12/31/15 [History] Furosemide [Lasix] 40 mg PO DAILY 12/31/15 [History] LORazepam [Ativan] 0.5 mg PO DAILY PRN 12/31/15 [History] Lactulose 30 ml PO DAILY PRN 12/31/15 [History] Lisinopril-HCTZ 20-12.5 [Prinzide 20-12.5] 1 tab PO BID 12/31/15 [History] Loratadine [Claritin] 10 mg PO DAILY 12/31/15 [History] Nitroglycerin [Nitrostat] 0.4 mg SL Q5M PRN 12/31/15 [History] Omeprazole [PriLOSEC] 40 mg PO BID 12/31/15 [History] Ranitidine HCl [Zantac] 150 mg PO HS 12/31/15 [History] metFORMIN [Glucophage] 1,000 mg PO BIDWM 12/31/15 [History] traMADol [Ultram] 50 mg PO Q6HR PRN 12/31/15 [History] Rosuvastatin Calcium [Crestor] 20 mg PO HS 09/11/16 [History] Albuterol Sulfate [Ventolin Hfa] 2 puff IH Q4H PRN 01/31/17 [History] Aspirin 81 mg PO DAILY 01/31/17 [History] Fluticasone Propionate Nasal [Flonase] 1 spray NS DAILY PRN 01/31/17 [History] Fluticasone/Vilanterol [Breo Ellipta 100-25 Mcg INH] 1 puff IH DAILY 01/31/17 [ History] Gabapentin [Neurontin] 100 mg PO BID 01/31/17 [History] Ipratropium/Albuterol Neb [Duoneb] 3 ml IH Q6HR PRN 01/31/17 [History] Meclizine HCl [Verticalm] 25 mg PO DAILY PRN 01/31/17 [History] Melatonin 6 mg PO HS 01/31/17 [History] Multivitamin [One Daily Essential] 1 tab PO DAILY 01/31/17 [History] Subcutaneous Insulin Pump [T:Slim] 1 each MC AD PRN 03/15/17 [History] Metoprolol [Lopressor] 100 mg PO BID #60 tablet 03/17/17 [Rx] Spironolactone [Aldactone] 25 mg PO BID 04/20/17 [History] Isosorbide MONOnitrate (24 HR) [Imdur] 30 mg PO DAILY 07/20/17 [History] 3 Allergy/AdvReac Type Severity Reaction Status Date / Time Hydroxychloroquine Allergy Hives Verified 07/20/17 13:49 [From Plaquenil] atorvastatin [From Lipitor] AdvReac Muscle Pain Verified 07/20/17 13:49 escitalopram [From Lexapro] AdvReac See Verified 07/20/17 13:49 Comments All Systems Review: A 10-system review of systems was performed and is negative for pertinent findings except as documented above in the HPI. - Constitutional Constitutional: chills, fever(s) - EENT Eyes: no blurred vision, no loss of vision Nose, mouth and throat: no dysphagia, no mouth pain - Cardiovascular Cardiovascular: dyspnea on exertion, no chest pain at rest, no chest pain with exertion - Respiratory Respiratory: dyspnea, no hemoptysis - Gastrointestinal Gastrointestinal: no hematemesis, no hematochezia - Genitourinary Genitourinary: no dysuria, no hematuria - Musculoskeletal Musculoskeletal: no arthralgias, no myalgias - Integumentary Integumentary: no erythema, no rash - Neurological Neurological: no syncope, no tingling - Psychiatric Psychiatric: no hallucinations, no panic attacks - Hematological/Lymphatic Hematologic/Lymphatic: no easy bleeding, no easy bruising Physical Examination Vital Signs, Last 4 Hours Temp Pulse Resp BP Pulse Ox 08/16/17 07:24 97.5 F L 73 17 111/69 94 General: Conversant HEENT: Atraumatic Neck: No JVD Cardiac: Reg Rate and Rhythm Lungs: Other (bibasilar crackles) Neuro: Alert and responsive, No focal deficits noted Abdomen: Soft Skin: No rashes noted on visualized skin Musculoskeletal: No Chest Wall Tenderness Extremities: No Cyanosis, No Edema Results 08/16/17 05:44 08/16/17 05:44 Lab Results 08/16/17 08/16/17 05:44 05:44 WBC 2.1 L Hgb 11.1 L Hct 33.7 L Plt Count 37 L Sodium 139 Potassium 4.0 Chloride 108 Carbon Dioxide 25 BUN 19 Creatinine 0.68 Glucose 151 H Calcium 8.7 Magnesium 1.9 Total Bilirubin 1.2 AST 43 H ALT 25 Alkaline Phosphatase 125 - EKG Interpretation EKG results cardiology: personally reviewed (sr poor r wave progression) - VTE Documentation of Mechanical Device: Intermittent pneumatic compression device
[2017-08-16] MEDS: Insulin DETEMIR 100 UNIT/ML X5UNITS SQ SCH ×2 (08:39→21:24)
[2017-08-16] MEDS: Isosorbide MONOnitrate (24 HR) 30 MG TAB.ER.24H PO SCH (08:40)
[2017-08-16] MEDS: Azithromycin 250 MG TABLET PO SCH (08:40)
[2017-08-16] MEDS: Furosemide 20 MG/2 ML VIAL IVP SCH (08:40)
[2017-08-16] MEDS: Aspirin 81 MG TAB.CHEW PO SCH (08:40)
[2017-08-16] MEDS: Metoprolol 100 MG TABLET PO SCH (08:40)
--- NOTE | 2017-08-16 11:06 | IR Procedure Note ---
Date of procedure: 08/16/17 Consent Obtained: Written consent Timeout: Correct patient and procedure verified, Correct site verified, Time out performed, Skin prep completed Indications: ascites Procedure Performed: paracentesis Site/Technique: left abdomen Results/Findings: moderate ascites Estimated blood loss (cc): 0 Complications: None; Tolerated procedure well
[2017-08-16] MEDS: Spironolactone 25 MG TABLET PO SCH ×2 (12:09→21:21)
[2017-08-16] MEDS ORDERED: Albumin 25% 12.5gm/50mL 12.5 GM/50 ML IV.SOLN IVPB ONE (19:09)
--- NOTE | 2017-08-16 19:12 | Internal Med Progress Note ---
Date of Encounter: 08/16/17 Time of Encounter: 15:10 - Assessment and plan (1) Acute bronchitis Current Visit: Yes Status: Acute Assessment and plan: Suspect viral etiology. Patient has a history of asthma, patient's flu swab is negative. Lungs are diminished throughout. Continue albuterol inhaler, DuoNeb's, Zithromax by mouth. Titrate oxygen as needed to maintain sats greater than 92%. Chest x-ray shows no pleural effusion or pneumothorax, no consolidation, mild pulmonary vascular congestion. Findings are likely related to mild edema. Patient did have a paracentesis. Continue to monitor plan as above. Qualifiers: Bronchitis organism: unspecified organism Qualified Code(s): J20.9 - Acute bronchitis, unspecified (2) Pancytopenia Current Visit: Yes Status: Chronic Assessment and plan: Likely related to underlying liver disease. Currently stable. Avoid medical anticoagulation. (3) CAD (coronary artery disease) Current Visit: Yes Status: Chronic Assessment and plan: Patient denies chest pain. Continue home medications. Continue telemetry. Qualifiers: Coronary Disease-Associated Artery/Lesion type: [place] artery [place] vs. transplanted heart: [place] heart Associated angina: without angina Qualified Code(s): I25.10 - Atherosclerotic heart disease of [place] coronary artery without angina pectoris (4) T2DM (type 2 diabetes mellitus) Current Visit: Yes Status: Chronic Assessment and plan: Chronic. Poorly controlled with an A1c of 9.3. Continue Accu-Cheks before meals and at bedtime, diabetic diet, sliding scale insulin. Resume home medications on discharge. 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 Requires frequent paracentesis, last one 4 days ago. Patient with history of known esophageal varices. Continue to follow up outpatient with primary care. (7) Morbid obesity with BMI of 40.0-44.9, adult Current Visit: Yes Status: Acute Assessment and plan: Chronic. (8) DVT prophylaxis Current Visit: Yes Status: Acute Assessment and plan: No pharmacologic intervention is needed at this time due to pancytopenia. SCDs ordered. - Time Spent With Patient less than 15 minutes - Subjective Interval history: Patient was seen and assessed at 1510. Has been at bedside. Patient reports that she feels weak. Patient appears to cyst with a removed 1560 mL. She reports feeling short of breath and cough. Patient will receive albumin. Patient will most likely discharge home tomorrow if patient is feeling better. - Constitutional Vitals: Temp Pulse Resp BP Pulse Ox 98.6 F 75 16 114/66 97 08/16/17 18:31 08/16/17 18:31 08/16/17 18:31 08/16/17 18:31 08/16/17 18:31 General appearance: Present: mild distress, A&O X 3, morbidly obese, pleasant, answers questions appropriately - Head Head exam: Present: atraumatic, normal inspection, normocephalic - Eye Eye exam: Present: normal appearance, conjuntiva pink, sclera anicteric - Neck Neck exam general surgery: Present: supple, trachea midline. Absent: lymphadenopathy - Respiratory Respiratory exam: Present: CTAB. Absent: accessory muscle use, rales, rhonchi, wheezes - Cardiovascular Cardiovascular exam: Present: RRR, +S1, +S2. Absent: diastolic murmur, gallop, rubs, systolic murmur - GI/Abdominal GI/Abdominal exam: Present: distended, hyperactive bowel sounds, soft, no peritoneal signs. Absent: tenderness - Extremities Exam Extremities exam: Present: warm, radial pulses palpable and symmetrical. Absent : calf tenderness, cyanotic, normal inspection, pedal edema, tenderness - Neurological Exam Neurological exam: Present: alert, oriented X3, no focal deficits. Absent: altered, motor sensory deficit, facial droop, speech deficit - Skin Skin exam: Present: dry, intact, normal color, warm. Absent: rash Internal Medicine: Result - Labs CBC & Chem 7: 08/16/17 05:44 08/16/17 05:44 Labs: Short CBC 08/16/17 Range/Units 05:44 WBC 2.1 L (4.3-11.1) K/mcL Hgb 11.1 L (11.5-15.4) g/dL Hct 33.7 L (35.3-44.9) % Plt Count 37 L (140-400) K/mcL Neutrophils # 1.3 L (1.6-8.9) K/mcL BMP 08/16/17 05:44 Sodium 139 Potassium 4.0 Chloride 108 Carbon Dioxide 25 BUN 19 Creatinine 0.68 Glucose 151 H Calcium 8.7 Liver Function 08/16/17 Range/Units 05:44 Total Bilirubin 1.2 (0.2-1.2) mg/dL AST 43 H (5-34) Units/L ALT 25 (0-55) Units/L Alkaline Phosphatase 125 (38-126) Units/L Albumin 2.7 L (3.5-5.0) g/dL - Impressions Impressions Paracentesis Ultrasound 08/16/17 15:02 IMPRESSION: Successful ultrasound guided paracentesis. D/ / Carley Madison MD / Carley Madisno MD Interpreting Provider: Carley Madison MD - VTE Documentation of Mechanical Device: Intermittent pneumatic compression device Consult Discharge Plan - Plan Referrals: Paul Haider MD [Primary Care Provider] -
[2017-08-17 04:58] LABS: BUN/Creatinine Ratio 25 (6-26); Blood Urea Nitrogen 20 mg/dL (7-20); Calcium 8.7 mg/dL (8.6-10.8); Carbon Dioxide 25 mEq/L (19-29); Chloride 106 mEq/L (98-109); Glucose 391 mg/dL (70-99); Osmolality,Calculated 301 (280-300); Potassium 4.6 mEq/L (3.5-4.5); Sodium 136 mEq/L (136-145); eGFR For African Americans > 60 (> 60); eGFR For Non-African Americans > 60 (> 60)
[2017-08-17 05:06] LABS: Basophils % 0.6 %; Red Cell Distribution Width 14.5 % (11.5-14.5)
[2017-08-17 05:08] LABS: Eosinophils # 0.1 K/mcL (0.0-0.6); Eosinophils % 3.5 %; Hematocrit 32.3 % (35.3-44.9); Hemoglobin 10.6 g/dL (11.5-15.4); Lymphocytes # 0.5 K/mcL (0.6-4.6); Lymphocytes % 28.5 %; Mean Corpuscular HGB Conc 32.8 g/dL (31.6-35.5); Mean Corpuscular Hemoglobin 29.4 pg (28.0-33.3); Mean Corpuscular Volume 89.5 fL (83.0-100.0); Mean Platelet Volume 12.2 fL (9.4-12.4); Monocytes # 0.2 K/mcL (0.0-1.3); Red Blood Count 3.61 M/mcL (3.82-4.97); Segmented Neutrophils % 56.4 %
[2017-08-17 05:10] LABS: Platelet Count 42 K/mcL (140-400)
[2017-08-17 06:14] LABS: Platelet Estimate Decreased (Normal)
[2017-08-17] MEDS: Insulin LISPRO 300 UNITS/3 ML VIAL SQ SCH ×2 (07:44→12:27)
[2017-08-17] MEDS ORDERED: 0.9 % Sodium Chloride 1,000 ML IVC SCH (08:00)
[2017-08-17] MEDS ORDERED: Furosemide 20 MG/2 ML VIAL IVP SCH (08:48)
[2017-08-17] MEDS: Insulin DETEMIR 100 UNIT/ML X5UNITS SQ SCH (10:27)
[2017-08-17] MEDS: Spironolactone 25 MG TABLET PO SCH (10:28)
[2017-08-17] MEDS: Aspirin 81 MG TAB.CHEW PO SCH (10:28)
[2017-08-17] MEDS: Azithromycin 250 MG TABLET PO SCH (10:28)
[2017-08-17] MEDS: Isosorbide MONOnitrate (24 HR) 30 MG TAB.ER.24H PO SCH (10:29)
--- NOTE | 2017-08-17 15:57 | Discharge Summary ---
Date of Encounter: 08/17/17 Time of Encounter: 09:00 - Discharge Diagnosis (1) Acute bronchitis Priority: Primary Status: Acute Comments: Suspect viral etiology. Patient has a history of asthma, patient's flu swab is negative. Lungs are diminished but clear throughout. Continue albuterol inhaler, DuoNeb's, Zithromax by mouth. Chest x-ray shows no pleural effusion or pneumothorax, no consolidation, mild pulmonary vascular congestion. Findings are likely related to mild edema. Patient did have a paracentesis. Pt will be sent home with Zithromax po, as well as continue her albuerol inhaler and DuoNebs. Qualifiers: Bronchitis organism: unspecified organism Qualified Code(s): J20.9 - Acute bronchitis, unspecified (2) Pancytopenia Priority: Secondary Status: Chronic Comments: Likely related to underlying chronic liver disease. Currently stable. Avoid medical anticoagulation. WBC 1.7, which is not significantly below pt's baseline. Plt 42, at pt's baseline, and RBC 3.61. Pt will follow with PCP as scheduled for continued monitoring and treatment. Pt was seen by cardiology, they recommend possibly transferring pt to [facility] for evaluation if paracenteses are becoming more frequent. Will defer to PCP. (3) CAD (coronary artery disease) Priority: Secondary Status: Chronic Comments: Pt reports intermittent chest pain/pressure. She was to have an elective outpatient LHC yesterday, it was cancelled due to her being inpt for paracentesis. She was seen by cardiology who reports she is at higher risk of complication due to pancyopenia and senior living issues with bleeding with recurrent esophageal varices. Pt appeared to be very upset that she was not going to have LHC while she was here and her kept encouraging her to report that she is having chest pain. When I told her that LHC was not an option at this time, she stated that she was ready to go home "if you're not going to do anything for me." Troponin was negative, chest xray negative for acute process. Pt had limited echo in January, that showed LVEF 60-65% with normal LV systolic function, mildly dilated LA. Echo in September, showed LVEF 65% with mild LV hypertrophy, no significant valvular dysfunction. Stress test 02/01/17 negative for ischemia or infarct, gated EF 80%, small area noted that was consistent with artifact. Pt will follow up with cardiology as scheduled. Qualifiers: Coronary Disease-Associated Artery/Lesion type: [place] artery [place] vs. transplanted heart: [place] heart Associated angina: without angina Qualified Code(s): I25.10 - Atherosclerotic heart disease of [place] coronary artery without angina pectoris (4) Hypertension Priority: Secondary Status: Chronic Comments: Pt has been normotensive, continue home medications. 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 Requires frequent paracentesis, last one 4 days ago. Patient with history of known esophageal varices. Continue to follow up outpatient with primary care. (6) Morbid obesity with BMI of 40.0-44.9, adult Priority: Secondary Status: Chronic Comments: Chronic. Discussed lifestyle changes. Weight loss is difficult with pt's chronic illnesses. (7) DVT prophylaxis Priority: Secondary Status: Acute Comments: No pharmacologic intervention is needed at this time due to pancytopenia. SCDs ordered. - Discharge Medications Prescriptions: Azithromycin [Zithromax] 500 mg PO DAILY #6 tablet Home Medications: Amitriptyline [Elavil] 10 mg PO HS 12/31/15 [History] Furosemide [Lasix] 40 mg PO DAILY 12/31/15 [History] LORazepam [Ativan] 0.5 mg PO DAILY PRN 12/31/15 [History] Lactulose 30 ml PO DAILY PRN 12/31/15 [History] Lisinopril-HCTZ 20-12.5 [Prinzide 20-12.5] 1 tab PO BID 12/31/15 [History] Loratadine [Claritin] 10 mg PO DAILY 12/31/15 [History] Nitroglycerin [Nitrostat] 0.4 mg SL Q5M PRN 12/31/15 [History] Omeprazole [PriLOSEC] 40 mg PO BID 12/31/15 [History] Ranitidine HCl [Zantac] 150 mg PO HS 12/31/15 [History] metFORMIN [Glucophage] 1,000 mg PO BIDWM 12/31/15 [History] traMADol [Ultram] 50 mg PO Q6HR PRN 12/31/15 [History] Rosuvastatin Calcium [Crestor] 20 mg PO HS 09/11/16 [History] Albuterol Sulfate [Ventolin Hfa] 2 puff IH Q4H PRN 01/31/17 [History] Aspirin 81 mg PO DAILY 01/31/17 [History] Fluticasone Propionate Nasal [Flonase] 1 spray NS DAILY PRN 01/31/17 [History] Fluticasone/Vilanterol [Breo Ellipta 100-25 Mcg INH] 1 puff IH DAILY 01/31/17 [ History] Gabapentin [Neurontin] 100 mg PO BID 01/31/17 [History] Ipratropium/Albuterol Neb [Duoneb] 3 ml IH Q6HR PRN 01/31/17 [History] Meclizine HCl [Verticalm] 25 mg PO DAILY PRN 01/31/17 [History] Melatonin 6 mg PO HS 01/31/17 [History] Multivitamin [One Daily Essential] 1 tab PO DAILY 01/31/17 [History] Subcutaneous Insulin Pump [T:Slim] 1 each MC AD PRN 03/15/17 [History] Metoprolol [Lopressor] 100 mg PO BID #60 tablet 03/17/17 [Rx] Spironolactone [Aldactone] 25 mg PO BID 04/20/17 [History] Isosorbide MONOnitrate (24 HR) [Imdur] 30 mg PO DAILY 07/20/17 [History] Azithromycin [Zithromax] 500 mg PO DAILY #6 tablet 08/17/17 [Rx] Allergies/Adverse Reactions: 3 Allergy/AdvReac Type Severity Reaction Status Date / Time Hydroxychloroquine Allergy Hives Verified 07/20/17 13:49 [From Plaquenil] atorvastatin [From Lipitor] AdvReac Muscle Pain Verified 07/20/17 13:49 escitalopram [From Lexapro] AdvReac See Verified 07/20/17 13:49 Comments Date of admission: 08/15/17 16:01 Primary care physician: Paul Haider MD Consults: 08/15/17 16:56 Consult to Cardiology [CONS] Routine Comment: Consulting Provider: [facility] [place] Reason for Consult: Left heart catheterization Call Completed: Yes Discharging clinician: Dunia Rajan Anticipated date of discharge: 08/17/17 - Patient Status Disposition: Home, Self-Care Condition: Fair Functional capacity at discharge: independent ambulation Overall status at discharge: patient is back to baseline - Discharge Instructions Follow Up With: Paul Haider MD [Primary Care Provider] - Additional Instructions: Follow up with your PCP in the next 7-10 days for a follow up visit. Return to your closest ER if your symptoms return or worsen or for any other problems or concerns. Resume your home medications Take Azithromycin as directed until gone. Resume your normal activities and diet as tolerated. - Diet and Activity Activity: increase activity as tolerated Diet: diabetic diet Interval History: See assessment and plan for hospital course. Hospital course: Ms. Morgan is a 62 year old female - Time Spent with Patient Total time spent providing and/or coordinating discharge services: Less than 30 minutes - Constitutional Vitals: Temp Pulse Resp BP Pulse Ox 98.2 F 82 16 134/84 96 08/17/17 11:18 08/17/17 11:18 08/17/17 11:18 08/17/17 11:18 08/17/17 11:18 General appearance: Present: mild distress, A&O X 3, morbidly obese, pleasant, no acute distress, answers questions appropriately - Head Head exam: Present: atraumatic, normal inspection, normocephalic - Eye Eye exam: Present: normal appearance, conjuntiva pink, sclera anicteric - Neck Neck exam general surgery: Present: supple, trachea midline - Respiratory Respiratory exam: Present: decreased breath sounds, CTAB, respiratory distress. Absent: accessory muscle use, rales, rhonchi, wheezes - Cardiovascular Cardiovascular exam: Present: RRR, +S1, +S2. Absent: diastolic murmur, gallop, rubs, systolic murmur - GI/Abdominal GI/Abdominal exam: Present: normal bowel sounds, soft, no peritoneal signs. Absent: distended, hepatomegaly, tenderness - Extremities Exam Extremities exam: Present: normal capillary refill, normal inspection, warm, radial pulses palpable and symmetrical. Absent: calf tenderness, cyanotic, pedal edema, tenderness - Neurological Exam Neurological exam: Present: alert, oriented X3, no focal deficits, strengths equal and symetr throughout. Absent: altered, facial droop, speech deficit - Skin Skin exam: Present: dry, intact, normal color, warm. Absent: rash - VTE Documentation of Mechanical Device: Intermittent pneumatic compression device
[2017-08-17 16:33] VITALS: BP 122/7
== END 2017-08-17 17:25 | disposition home or self-care (01) | DRG 202 ==
LOC: 3BNU 23:31 → EMEROO 23:31 → SUATTDRO 08-14 02:43 → 3BNU 08-14 03:13
PROVIDERS: ADMIT Internal Medicine; ATTEND Internal Medicine

== ENCOUNTER 2017-12-16 12:08 | Inpatient (IN) ==
--- NOTE | 2017-12-16 12:57 | Emergency Department Note ---
Disposition Clinical Impression: Chest pain, Ascites Disposition: Admitted As Inpatient Condition: Fair General Adult HPI - General Chief complaint: ED Chest Pain Stated complaint: CP/SOB Time Seen by Provider: 12/16/17 12:44 Source: patient Limitations: no limitations Nursing Notes Reviewed: Yes Vital Signs Reviewed: Yes - History of Present Illness Pain Scale: 7 - Related Data Home Medications Medication Instructions Recorded Confirmed LORazepam [Ativan] 0.5 mg PO DAILY PRN 12/31/15 12/16/17 Lactulose 30 ml PO DAILY PRN 12/31/15 12/16/17 Loratadine [Claritin] 10 mg PO DAILY 12/31/15 12/16/17 Nitroglycerin [Nitrostat] 0.4 mg SL Q5M PRN 12/31/15 12/16/17 Omeprazole [PriLOSEC] 40 mg PO BID 12/31/15 12/16/17 Ranitidine HCl [Zantac] 150 mg PO HS 12/31/15 12/16/17 metFORMIN [Glucophage] 1,000 mg PO BIDWM 12/31/15 12/16/17 traMADol [Ultram] 50 mg PO Q6HR PRN 12/31/15 12/16/17 Rosuvastatin Calcium [Crestor] 20 mg PO HS 09/11/16 12/16/17 Albuterol Sulfate [Ventolin Hfa] 2 puff IH Q4H PRN 01/31/17 12/16/17 Fluticasone Propionate Nasal 1 spray NS DAILY PRN 01/31/17 12/16/17 [Flonase] Fluticasone/Vilanterol [Breo 1 puff IH DAILY 01/31/17 12/16/17 Ellipta 100-25 Mcg INH] Gabapentin [Neurontin] 100 mg PO BID 01/31/17 12/16/17 Ipratropium/Albuterol Neb [Duoneb] 3 ml IH Q6HR PRN 01/31/17 12/16/17 Meclizine HCl [Verticalm] 25 mg PO DAILY PRN 01/31/17 12/16/17 Multivitamin [One Daily Essential] 1 tab PO DAILY 01/31/17 12/16/17 Spironolactone [Aldactone] 50 mg PO BID 04/20/17 12/16/17 Isosorbide MONOnitrate (24 HR) 30 mg PO DAILY 07/20/17 12/16/17 [Imdur] Bumetanide [Bumex] 1 mg PO DAILY 11/17/17 12/16/17 Insulin ASPART [NovoLOG] 0 unit SQ ACHS 11/17/17 12/16/17 Ondansetron [Zofran] 8 mg PO BID PRN 12/16/17 12/16/17 Zolpidem [Ambien] 5 mg PO HS PRN 12/16/17 12/16/17 Previous Rx's Medication Instructions Recorded Metoprolol [Lopressor] 100 mg PO BID #60 tablet 03/17/17 Allergies Allergy/AdvReac Type Severity Reaction Status Date / Time Hydroxychloroquine Allergy Hives Verified 12/16/17 12:12 [From Plaquenil] atorvastatin [From Lipitor] AdvReac Muscle Pain Verified 12/16/17 12:12 escitalopram [From Lexapro] AdvReac See Verified 12/16/17 12:12 Comments Past Medical History - Past Medical History Medical history: Reports: cirrhosis, coronary artery disease, diabetes, fibromyalgia, GERD, hyperlipidemia, hypertension, liver disease, myocardial infarction, thyroid disease, other Surgical history: Reports: hysterectomy, other Psychiatric history: Reports: anxiety - Social History Smoking Status: Never smoker Smokeless Tobacco Status: No Alcohol use: Reports: none Drug use: Reports: none Physical Exam - General Limitations: no limitations General appearance: alert Course Vital Signs Temperature 98.5 F 12/16/17 12:15 Pulse Rate 82 12/16/17 12:15 Respiratory Rate 20 12/16/17 12:15 Blood Pressure 145/82 12/16/17 12:15 O2 Sat by Pulse Oximetry 95 12/16/17 12:15 Temperature 98.5 F 12/16/17 12:15 Pulse Rate 83 12/16/17 14:19 Respiratory Rate 20 12/16/17 14:19 Blood Pressure 120/68 12/16/17 14:19 O2 Sat by Pulse Oximetry 93 12/16/17 14:19 Oxygen Delivery Oxygen Delivery Room Air Medical Decision Making - MDM Narrative Medical decision making narrative: This documentation is done with the assistance of Dragon dictation. Despite efforts made to ensure accuracy, there may be inaccuracies in informatics specialist or spelling and typographical errors. I examined this patient and my medical decision-making was reviewed with the Resident Physician. I agree with the documented findings, disposition and treatment plan as described except to the extent set forth below. Patient seen on arrival with Dr. Brown and myself, I agree with her evaluation and management plan, supervised care the patient's stay. Patient has had chest pain episodes last about 5 minutes and of her chest, squeezing nature then they go away. She has had a history of CAD in the past. However she is not on aspirin because she has liver abnormalities I told a staff of aspirin. She says she also feels like her abdomen is swelling a little bit she has had ascites in the past. No chest pain at this time. We will start a workup on her and then reassess she may need admission. She is in agreement with this plan. She has a nonsurgical abdomen at this time is nontoxic in appearance. 1218 hrs.: Patient had an EKG performed, sinus rhythm, rate is 81, QRS is 94, QTC is 423, no signs of acute ischemia, flipped complexes and lead 3, LVH by voltage criteria, compare this with an EKG she had done last year showed no changes except for rate. T waves at that time were upright. Chest X-Ray 12/16/17 12:13 IMPRESSION: No acute process. D/ / Yanci Chapin MD / Yanci Chapin MD Interpreting Provider: Yanci Chapin MD 1425 hrs.: Patient's of the nitroglycerin made her feel better. If she does not want aspirin due to history of liver problems. Reviewing her labs and then we will discuss with her admission. 1430 hrs.: Did place bedside ultrasound her abdomen she does have some fluid in her abdomen so she will probably need IR to evaluate her here. We will bring her into the hospital. Chest pain rule out ACS and ascites. - Lab Data Result diagrams: 12/16/17 13:12 12/16/17 13:12 Lab Results 12/16/17 12/16/17 12/16/17 Range/Units 13:12 13:12 13:12 WBC 2.3 L (4.3-11.1) K/mcL RBC 4.17 (3.82-4.97) M/mcL Hgb 12.8 (11.5-15.4) g/dL Hct 38.0 (35.3-44.9) % MCV 91.1 (83.0-100.0) fL MCH 30.7 (28.0-33.3) pg MCHC 33.7 (31.6-35.5) g/dL RDW 14.3 (11.5-14.5) % Plt Count 37 L (140-400) K/mcL MPV 11.3 (9.4-12.4) fL Immature Gran % 0.0 (0-4) % Seg Neutrophils % 70.2 % Lymphocytes % 19.6 % Monocytes % 7.6 % Eosinophils % 2.2 % Basophils % 0.4 % Neutrophils # 1.6 (1.6-8.9) K/mcL Lymphocytes # 0.5 L (0.6-4.6) K/mcL Monocytes # 0.2 (0.0-1.3) K/mcL Eosinophils # 0.1 (0.0-0.6) K/mcL Basophils # 0.0 (0.0-0.2) K/mcL Immature Plt Fraction 7.1 H (1.1-6.1) % Sodium 135 L (136-145) mEq/L Potassium 3.9 (3.5-5.1) mEq/L Chloride 102 (98-107) mEq/L Carbon Dioxide 24 (23-29) mEq/L BUN 14 (8-23) mg/dL Creatinine 0.72 (0.60-1.20) mg/dL Est GFR ( Amer) > 60 (> 60) Est GFR (Non-Af Amer) > 60 (> 60) BUN/Creatinine Ratio 19 (6-26) Glucose 433 H (70-105) mg/dL Calculated Osmolality 299 (280-300) Calcium 9.2 (8.6-10.3) mg/dL Total Bilirubin 1.8 H (0.3-1.0) mg/dL AST 30 (13-39) Units/L ALT 20 (7-52) Units/L Alkaline Phosphatase 124 H (34-104) Units/L Troponin I < 0.03 (< 0.04) ng/mL Serum Total Protein 6.2 L (6.4-8.9) g/dL Albumin 3.6 (3.5-5.7) g/dL Globulin 2.6 (2.4-3.5) g/dL Albumin/Globulin Ratio 1.4 (1.1-2.2) Specimen Rejected Accident
[2017-12-16 13:26] LABS: Hemoglobin 12.8 g/dL (11.5-15.4)
[2017-12-16 13:28] LABS: Basophils % 0.4 %; Eosinophils # 0.1 K/mcL (0.0-0.6); Eosinophils % 2.2 %; Immature Platelets 7.1 % (1.1-6.1); Lymphocytes % 19.6 %; Mean Corpuscular HGB Conc 33.7 g/dL (31.6-35.5); Mean Corpuscular Hemoglobin 30.7 pg (28.0-33.3); Mean Corpuscular Volume 91.1 fL (83.0-100.0); Mean Platelet Volume 11.3 fL (9.4-12.4); Monocytes # 0.2 K/mcL (0.0-1.3); Monocytes % 7.6 %; Neutrophils # 1.6 K/mcL (1.6-8.9); Red Blood Count 4.17 M/mcL (3.82-4.97); Red Cell Distribution Width 14.3 % (11.5-14.5); Segmented Neutrophils % 70.2 %
[2017-12-16 13:39] LABS: Lymphocytes # 0.5 K/mcL (0.6-4.6); Platelet Count 37 K/mcL (140-400)
[2017-12-16 13:46] LABS: Alanine Aminotransferase 20 Units/L (7-52); Albumin 3.6 g/dL (3.5-5.7); Albumin/Globulin Ratio 1.4 (1.1-2.2); Alkaline Phosphatase 124 Units/L (34-104); Aspartate Amino Transferase 30 Units/L (13-39); BUN/Creatinine Ratio 19 (6-26); Bilirubin,Total 1.8 mg/dL (0.3-1.0); Blood Urea Nitrogen 14 mg/dL (8-23); Calcium 9.2 mg/dL (8.6-10.3); Carbon Dioxide 24 mEq/L (23-29); Chloride 102 mEq/L (98-107); Globulin 2.6 g/dL (2.4-3.5); Glucose 433 mg/dL (70-105); Osmolality,Calculated 299 (280-300); Potassium 3.9 mEq/L (3.5-5.1); Sodium 135 mEq/L (136-145); Total Protein 6.2 g/dL (6.4-8.9); eGFR For African Americans > 60 (> 60); eGFR For Non-African Americans > 60 (> 60)
[2017-12-16 13:47] LABS: Troponin I < 0.03 ng/mL (< 0.04)
--- NOTE | 2017-12-16 14:04 | Emergency Department Note ---
Disposition Clinical Impression: Chest pain Qualifiers: Chest pain type: unspecified Qualified Code(s): R07.9 - Chest pain, unspecified Ascites Qualifiers: Ascites type: other type Qualified Code(s): R18.8 - Other ascites Disposition: Admitted As Inpatient Condition: Fair Referrals: NONE,PCP [Primary Care Provider] - Forms: ED Satisfaction Letter Time of Disposition: 14:59 Chest Pain HPI - General Chief Complaint: ED Chest Pain Stated Complaint: CP/SOB Time Seen by Provider: 12/16/17 12:44 Source: patient Limitations: no limitations Vital Signs Reviewed: Yes Nursing Notes Reviewed: Yes - History of Present Illness HPI Narrative: Patient is a 62-year-old female who presents to [facility] ED with a chief complaining of chest pain, difficulty breathing. Patient states she has had a few episodes of chest pain that is lasted approximately 5 minutes each. Admits to some nausea, no vomiting. No diaphoresis. States she has also had worsening shortness of breath especially with exertion. She has had a history of liver disease and has had paracentesis to drain out fluid. States they most recently drained about 3 L a few days ago but she feels like she is going on again. States she feels extremely weak all over and like she has no energy to do anything. Pt complaint: chest pain Onset (ago): day(s) Duration: intermittent Onset: during rest, during exertion Pain Location: substernal Severity: moderate Severity scale (1-10): 7 Quality: aching, heaviness Pain Radiation: none Improves with: nitroglycerin Worsens with: exertion Associated symptoms: Reports: nausea. Denies: vomiting, dyspnea, fever Treatments prior to arrival chest pain: none - Related Data Home Medications Medication Instructions Recorded Confirmed Amitriptyline [Elavil] 10 mg PO HS 12/31/15 11/17/17 LORazepam [Ativan] 0.5 mg PO DAILY PRN 12/31/15 11/17/17 Lactulose 30 ml PO DAILY PRN 12/31/15 11/17/17 Loratadine [Claritin] 10 mg PO DAILY 12/31/15 11/17/17 Nitroglycerin [Nitrostat] 0.4 mg SL Q5M PRN 12/31/15 11/17/17 Omeprazole [PriLOSEC] 40 mg PO BID 12/31/15 11/17/17 Ranitidine HCl [Zantac] 150 mg PO HS 12/31/15 11/17/17 metFORMIN [Glucophage] 1,000 mg PO BIDWM 12/31/15 11/17/17 traMADol [Ultram] 50 mg PO Q6HR PRN 12/31/15 11/17/17 Rosuvastatin Calcium [Crestor] 20 mg PO HS 09/11/16 11/17/17 Albuterol Sulfate [Ventolin Hfa] 2 puff IH Q4H PRN 01/31/17 11/17/17 Aspirin 81 mg PO DAILY 01/31/17 11/17/17 Fluticasone Propionate Nasal 1 spray NS DAILY PRN 01/31/17 11/17/17 [Flonase] Fluticasone/Vilanterol [Breo 1 puff IH DAILY 01/31/17 11/17/17 Ellipta 100-25 Mcg INH] Gabapentin [Neurontin] 100 mg PO BID 01/31/17 11/17/17 Ipratropium/Albuterol Neb [Duoneb] 3 ml IH Q6HR PRN 01/31/17 11/17/17 Meclizine HCl [Verticalm] 25 mg PO DAILY PRN 01/31/17 11/17/17 Multivitamin [One Daily Essential] 1 tab PO DAILY 01/31/17 11/17/17 Spironolactone [Aldactone] 25 mg PO BID 04/20/17 11/17/17 Isosorbide MONOnitrate (24 HR) 30 mg PO DAILY 07/20/17 11/17/17 [Imdur] traZODone [TraZODone] 50 mg PO HS 10/19/17 11/17/17 Bumetanide [Bumex] 1 mg PO DAILY 11/17/17 11/17/17 Insulin ASPART [NovoLOG] 0 unit SQ QID 11/17/17 11/17/17 Insulin Glargine,Hum.rec.anlog 80 units SQ DAILY 11/17/17 11/17/17 [Nasima Melgoza] Previous Rx's Medication Instructions Recorded Metoprolol [Lopressor] 100 mg PO BID #60 tablet 03/17/17 Allergies Allergy/AdvReac Type Severity Reaction Status Date / Time Hydroxychloroquine Allergy Hives Verified 12/16/17 12:12 [From Plaquenil] atorvastatin [From Lipitor] AdvReac Muscle Pain Verified 12/16/17 12:12 escitalopram [From Lexapro] AdvReac See Verified 12/16/17 12:12 Comments All systems ED: reviewed and negative except as stated. Chest Pain PMH - Past Medical History Medical history: Reports: cirrhosis, coronary artery disease, diabetes, fibromyalgia, GERD, hyperlipidemia, hypertension, liver disease, myocardial infarction, thyroid disease, other Surgical history: Reports: hysterectomy, other Psychiatric history: Reports: anxiety - Social History Smoking Status: Never smoker Alcohol use: Reports: none Drug use: Reports: none Physical Exam - General Limitations: no limitations General appearance: alert - Head Head exam: atraumatic, normocephalic, normal inspection - Eye Eye exam: Present: normal appearance, EOMI - ENT ENT exam: normal exam, normal oropharynx, mucous membranes moist - Neck Neck exam: Present: normal inspection, full ROM, trachea midline - Chest Chest inspection: Present: normal inspection, symmetric chest wall rise - Respiratory Respiratory exam: Present: normal lung sounds bilaterally - Cardiovascular Cardiovascular exam: Present: regular rate, normal rhythm, normal heart sounds - Abdominal Exam Abdominal exam: Present: soft, distention, normal bowel sounds. Absent: tenderness, guarding, rebound, rigidity - Extremities Exam Extremities exam: Present: normal inspection, full ROM. Absent: tenderness, pedal edema - Back Exam Back exam: Present: normal inspection, full ROM. Absent: tenderness - Neurological Exam Neurological exam: Present: alert, oriented X3 - Psychiatric Psychiatric exam: Present: normal affect, normal mood - Skin Skin exam: Present: warm, dry, intact, normal color Course Course Narrative: Patient seen and examined. Chest pain, difficulty breathing. Cardiopulmonary workup initiated. Bedside ultrasound does show a moderate amount of ascites. Will do a nitroglycerin trial. - Reevaluation(s) Reevaluation #1: Labwork unremarkable. No EKG changes. We will admit for ACS workup. Patient would likely benefit from a paracentesis will she is in the hospital as well. I discussed with hospitalist who has accepted pt for admission. Time: 14:56 Vital Signs Temperature 98.5 F 12/16/17 12:15 Pulse Rate 82 12/16/17 12:15 Respiratory Rate 20 12/16/17 12:15 Blood Pressure 145/82 12/16/17 12:15 O2 Sat by Pulse Oximetry 95 12/16/17 12:15 Temperature 98.5 F 12/16/17 12:15 Pulse Rate 82 12/16/17 12:15 Respiratory Rate 20 12/16/17 12:15 Blood Pressure 145/82 12/16/17 12:15 O2 Sat by Pulse Oximetry 95 12/16/17 12:15 Oxygen Delivery Oxygen Delivery Room Air Chest Pain - Medical Records Medical records reviewed: Yes I reviewed the patient's medical records. - Lab Data Lab results reviewed: Yes I reviewed the patient's lab results. Result diagrams: 12/16/17 13:12 12/16/17 13:12 Lab Results 12/16/17 12/16/17 Range/Units 13:12 13:12 WBC 2.3 L (4.3-11.1) K/mcL RBC 4.17 (3.82-4.97) M/mcL Hgb 12.8 (11.5-15.4) g/dL Hct 38.0 (35.3-44.9) % MCV 91.1 (83.0-100.0) fL MCH 30.7 (28.0-33.3) pg MCHC 33.7 (31.6-35.5) g/dL RDW 14.3 (11.5-14.5) % Plt Count 37 L (140-400) K/mcL MPV 11.3 (9.4-12.4) fL Immature Gran % 0.0 (0-4) % Seg Neutrophils % 70.2 % Lymphocytes % 19.6 % Monocytes % 7.6 % Eosinophils % 2.2 % Basophils % 0.4 % Neutrophils # 1.6 (1.6-8.9) K/mcL Lymphocytes # 0.5 L (0.6-4.6) K/mcL Monocytes # 0.2 (0.0-1.3) K/mcL Eosinophils # 0.1 (0.0-0.6) K/mcL Basophils # 0.0 (0.0-0.2) K/mcL Immature Plt Fraction 7.1 H (1.1-6.1) % Sodium 135 L (136-145) mEq/L Potassium 3.9 (3.5-5.1) mEq/L Chloride 102 (98-107) mEq/L Carbon Dioxide 24 (23-29) mEq/L BUN 14 (8-23) mg/dL Creatinine 0.72 (0.60-1.20) mg/dL Est GFR ( Amer) > 60 (> 60) Est GFR (Non-Af Amer) > 60 (> 60) BUN/Creatinine Ratio 19 (6-26) Glucose 433 H (70-105) mg/dL Calculated Osmolality 299 (280-300) Calcium 9.2 (8.6-10.3) mg/dL Total Bilirubin 1.8 H (0.3-1.0) mg/dL AST 30 (13-39) Units/L ALT 20 (7-52) Units/L Alkaline Phosphatase 124 H (34-104) Units/L Troponin I < 0.03 (< 0.04) ng/mL Serum Total Protein 6.2 L (6.4-8.9) g/dL Albumin 3.6 (3.5-5.7) g/dL Globulin 2.6 (2.4-3.5) g/dL Albumin/Globulin Ratio 1.4 (1.1-2.2) - Radiology Data Radiology results reviewed: Yes I reviewed the patient's radiology results. Chest X-Ray 12/16/17 12:13 IMPRESSION: No acute process. D/ / Yanci Chapin MD / Yanci Chapin MD Interpreting Provider: Yanci Chapin MD Heart Score - Score History: Slightly Suspicious EKG: Non Specific repolarisation Disturbance Age: 45-65 Risk Factors: Equal/Greater than 3 risk factor or history of atherosclerotic disease Troponin: Less than normal limit HEART Score Total: 4
[2017-12-16] MEDS: Nitroglycerin 0.4 MG TAB.SUBL SL PRN ×2 (14:12→14:17)
--- NOTE | 2017-12-16 15:04 | Event Note ---
Date of Encounter: 12/16/17 Time of Encounter: 15:00 1. Chest pain Has been recurrent, had a normal stress test back in January of last year, troponin is normal Chest x-ray shows no acute processes, follow troponins, may order a limited echocardiogram She is a patient of Dr. 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 Cirrhosis and ascites Consult interventional radiology for paracenteses 3. Diabetes, insulin sliding scale 4. History of CAD Omeprazole for GI prophylaxis and sequential compression devices for DVT prophylaxis. The patient will be admitted for observation. Full code. Time spent on this admission 40 minutes H&P will be completed by JP Modi
[2017-12-16] MEDS ORDERED: Fluticasone Propionate Nasal 50 MCG/SPRAY BOTTLE NS PRN (15:15)
[2017-12-16] MEDS ORDERED: traMADol 50 MG TABLET PO PRN (15:15)
[2017-12-16] MEDS ORDERED: Ondansetron ODT 4 MG TAB.RAPDIS PO PRN (15:15)
[2017-12-16] MEDS ORDERED: Ipratropium/Albuterol Neb 3 ML IH PRN (15:15)
[2017-12-16] MEDS ORDERED: Nitroglycerin 0.4 MG TAB.SUBL SL PRN (15:15)
[2017-12-16] MEDS ORDERED: *HR* LORazepam 0.5 MG TABLET PO PRN (15:15)
[2017-12-16] MEDS ORDERED: D5% in Water 1,000 ML IVC PRN ×2 (15:19→15:23)
[2017-12-16] MEDS ORDERED: Dextrose Gel 15 GM/37.5 ML TUBE PO PRN ×4 (15:19→15:23)
[2017-12-16] MEDS ORDERED: Naloxone 0.4 MG/ML INJ IVP PRN (15:19)
[2017-12-16] MEDS ORDERED: *HR* Dextrose 50 % in Water (Syg) 50 ML SYRINGE IVP PRN ×2 (15:19→15:23)
--- NOTE | 2017-12-16 15:35 | Internal Med History&Physical ---
<Abdiel Modi - Last Filed: 12/16/17 15:36> Date of Encounter: 12/16/17 Time of Encounter: 15:33 Assessment and Plan (1) Chest pain Current visit: Yes Status: Acute Presents today with left sided chest pain, worse with activity and inspiration and associated with shortness of breath. She reports that it is radiating to the mid back. h/o CAD (severe small vessel disease). Has been admitted for CP r/o frequently but has been unable to undergo [facility] d/t thrombocytopenia. EKG NSR with no changes from prior EKG. Initial troponin negative, and she is hemodynamically stable PLAN: - cardiac enzymes x 2 q 6 hr - ASA - O2 by NC to keep SpO2 greater than 92% - CBCD, BMP in AM - Fasting lipids - Continue home medications - EPCD's for DVT prophylaxis - 2D Echo - Cardiology consult- spoke with Dr. Gant who has agreed to see the patient. Qualifiers: Chest pain type: unspecified Qualified Code(s): R07.9 - Chest pain, unspecified (2) Ascites Current visit: Yes Status: Acute H/O CONNELLY. Ascites secondary to Connelly. She requires frequent paracentesis. Last recent cases completed 3 days ago with removal of 3.5 L of fluid. 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 Current visit: Yes Status: Chronic (5) T2DM (type 2 diabetes mellitus) Current visit: Yes Status: Chronic sliding scale insulin coverage Qualifiers: Diabetes mellitus prison insulin use: with prison use Diabetes mellitus complication status: with hyperglycemia Qualified Code(s): E11.65 - Type 2 diabetes mellitus with hyperglycemia; Z79.4 - terminal make up operator (current) use of insulin; Z79.4 - terminal make up operator (current) use of insulin; Z79.4 - terminal make up operator (current ) use of insulin; Z79.4 - jail (current) use of insulin (6) Hypertension Current visit: Yes Status: Chronic stable, resume BB Qualifiers: Hypertension type: essential hypertension Qualified Code(s): I10 - Essential (primary) hypertension (7) CAD (coronary artery disease) Current visit: Yes Status: Chronic Resume imdur, asa, statin and bb Qualifiers: Coronary Disease-Associated Artery/Lesion type: [place] artery [place] vs. transplanted heart: [place] heart Associated angina: without angina Qualified Code(s): I25.10 - Atherosclerotic heart disease of [place] coronary artery without angina pectoris (8) Hyperlipidemia Current visit: Yes Status: Chronic resume crestor Qualifiers: Hyperlipidemia type: unspecified Qualified Code(s): E78.5 - Hyperlipidemia , unspecified (9) Thrombocytopenia Current visit: Yes Status: Chronic secondary to CONNELLY, chronic. Platelet value chronically in the 30's and 40's (10) Leukopenia Current visit: Yes Status: Acute secondary to CONNELLY, chronic CBCD in the am Qualifiers: Leukopenia type: unspecified Qualified Code(s): D72.819 - Decreased white blood cell count, unspecified (11) DVT prophylaxis Current visit: Yes Status: Acute EPCD's Internal Medicine - H&P: HPI Chief complaint: cp r/o, ascites Admitted From: Home Plans for Post Hospital Care: Home History of present illness: Ms. Morgan is a 62 year old female with a PMH of irrhosis, coronary artery disease, diabetes, fibromyalgia, GERD, hyperlipidemia, hypertension, liver disease, myocardial infarction, and thyroid disease. She presents to [facility] today with chest pain and difficulty breathing. She reports that she has been having constant dull left sided chest discomfort with radiation to the mid- back. She reports that the chest pain is worse with activity and with respirations. She denies any fevers, chills, abdominal pain, or extremity swelling/pain. She has a h/o CONNELLY and ascites. She reports that she underwent paracentesis approximately 3 days ago had 3.5 L of peritoneal fluid drained. However, she is reporting that her abdomen is again swollen and she has regained the fluid weight since drainage. She feels generally weak and fatigued and is concerned that this may be contributing to her current condition as well. Her EKG in the ED was NSR, no changes from prior EKG. Initial troponin negative and CXR negative for acute pulmonary process. Past Med Surg Social Fam HX - Past Medical History Medical history: cirrhosis, coronary artery disease, diabetes, fibromyalgia, GERD, hyperlipidemia, hypertension, liver disease, myocardial infarction, thyroid disease, other Psychiatric history: anxiety - Past Surgical History Surgical History: hysterectomy, other - Social History Smoking Status: Never smoker Smokeless Tobacco Status: No Alcohol use: none Drug use: none - Family History Mother Living Status: Hx Family Cardiac Disorders: Yes (CAD) Hx Family Respiratory Disorders: Yes Father Living Status: Hx Family Cardiac Disorders: Yes Internal Medicine - H&P: Meds LORazepam [Ativan] 0.5 mg PO DAILY PRN 12/31/15 [History] Lactulose 30 ml PO DAILY PRN 12/31/15 [History] Loratadine [Claritin] 10 mg PO DAILY 12/31/15 [History] Nitroglycerin [Nitrostat] 0.4 mg SL Q5M PRN 12/31/15 [History] Omeprazole [PriLOSEC] 40 mg PO BID 12/31/15 [History] Ranitidine HCl [Zantac] 150 mg PO HS 12/31/15 [History] metFORMIN [Glucophage] 1,000 mg PO BIDWM 12/31/15 [History] traMADol [Ultram] 50 mg PO Q6HR PRN 12/31/15 [History] Rosuvastatin Calcium [Crestor] 20 mg PO HS 09/11/16 [History] Albuterol Sulfate [Ventolin Hfa] 2 puff IH Q4H PRN 01/31/17 [History] Fluticasone Propionate Nasal [Flonase] 1 spray NS DAILY PRN 01/31/17 [History] Fluticasone/Vilanterol [Breo Ellipta 100-25 Mcg INH] 1 puff IH DAILY 01/31/17 [ History] Gabapentin [Neurontin] 100 mg PO BID 01/31/17 [History] Ipratropium/Albuterol Neb [Duoneb] 3 ml IH Q6HR PRN 01/31/17 [History] Meclizine HCl [Verticalm] 25 mg PO DAILY PRN 01/31/17 [History] Multivitamin [One Daily Essential] 1 tab PO DAILY 01/31/17 [History] Metoprolol [Lopressor] 100 mg PO BID #60 tablet 03/17/17 [Rx] Spironolactone [Aldactone] 50 mg PO BID 04/20/17 [History] Isosorbide MONOnitrate (24 HR) [Imdur] 30 mg PO DAILY 07/20/17 [History] Bumetanide [Bumex] 1 mg PO DAILY 11/17/17 [History] Insulin ASPART [NovoLOG] 0 unit SQ ACHS 11/17/17 [History] Ondansetron [Zofran] 8 mg PO BID PRN 12/16/17 [History] Zolpidem [Ambien] 5 mg PO HS PRN 12/16/17 [History] 3 Allergy/AdvReac Type Severity Reaction Status Date / Time Hydroxychloroquine Allergy Hives Verified 12/16/17 12:12 [From Plaquenil] atorvastatin [From Lipitor] AdvReac Muscle Pain Verified 12/16/17 12:12 escitalopram [From Lexapro] AdvReac See Verified 12/16/17 12:12 Comments All Systems PM: A 10-system review of systems was performed and is negative for pertinent findings except as documented above in the HPI. - Constitutional Constitutional: as per HPI - Cardiovascular Cardiovascular ROS IM: as per HPI - Respiratory Respiratory: no cough, no dyspnea, no wheezing, no excessive phlegm production - Gastrointestinal Gastrointestinal: abdominal pain (pressure), no diarrhea, no hematemesis, no hematochezia, no melena, no nausea, no vomiting - Genitourinary Genitourinary: no change in urinary stream, no dysuria, no flank pain, no hematuria - Musculoskeletal Musculoskeletal ROS IM: no numbness, no tingling - Integumentary Integumentary IM: no rash, no unusual bruising - Neurological Neurological ROS: no confusion, no convulsions, no focal weakness, no numbness, no tingling, no tremor(s) - Constitutional Vitals: Temp Pulse Resp BP Pulse Ox 98.5 F 83 20 120/68 93 12/16/17 12:15 12/16/17 14:19 12/16/17 14:19 12/16/17 14:19 12/16/17 14:19 General appearance: Present: mild distress, A&O X 3, pleasant, obese, answers questions appropriately - Head Head exam: Present: atraumatic, normocephalic - Eye Pupils: Present: PERRL - Respiratory Respiratory exam: Present: CTAB. Absent: accessory muscle use, rales, rhonchi, wheezes - Cardiovascular Cardiovascular exam: Present: RRR, +S1, +S2. Absent: diastolic murmur, gallop, rubs, systolic murmur - GI/Abdominal GI/Abdominal exam: Present: distended, normal bowel sounds. Absent: firm, guarding Additional comments: round, distended - Expanded GI/Abdominal Exam GI/Abdominal exam expanded: Present: ascites - Extremities Exam Extremities exam: Present: warm, radial pulses palpable and symmetrical. Absent : calf tenderness, cyanotic, pedal edema - Neurological Exam Neurological exam: Present: alert, oriented X3. Absent: facial droop, speech deficit - Skin Skin exam: Present: dry, intact Internal Med - H&P Results - Labs CBC & Chem 7: 12/16/17 13:12 12/16/17 13:12 - Impressions Impressions Chest X-Ray 12/16/17 12:13 IMPRESSION: No acute process. D/ / Yanci Chapin MD / Yanci Chapin MD Interpreting Provider: Yanci Chapin MD <Danilo Keane H - Last Filed: 12/16/17 18:09> Date of Encounter: 12/16/17 Internal Medicine - H&P: HPI History of present illness: Ms. Morgan is a 62 year old female All Systems PM: A 10-system review of systems was performed and is negative for pertinent findings except as documented above in the HPI. - Constitutional Vitals: Temp Pulse Resp BP Pulse Ox 97.8 F 81 20 151/73 98 12/16/17 16:10 12/16/17 16:10 12/16/17 16:10 12/16/17 16:10 12/16/17 16:18 Internal Med - H&P Results - Labs CBC & Chem 7: 12/16/17 13:12 12/16/17 13:12 - Attending Attestation 1. Chest pain Has been recurrent, had a normal stress test back in January of last year, troponin is normal Chest x-ray shows no acute processes, follow troponins, may order a limited echocardiogram She is a patient of Dr. 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 Cirrhosis and ascites Consult interventional radiology for paracenteses 3. Diabetes, insulin sliding scale 4. History of CAD Omeprazole for GI prophylaxis and sequential compression devices for DVT prophylaxis. The patient will be admitted for observation. Full code. Time spent on this admission 40 minutes I have personally performed a face to face evaluation on this patient. I have reviewed and agree with the care plan. History and Exam by me shows:
--- NOTE | 2017-12-16 15:49 | IR Procedure Note ---
Date of procedure: 12/16/17 Consent Obtained: Verbal consent Timeout: Correct patient and procedure verified, Correct site verified, Time out performed, Skin prep completed Indications: ascites Procedure Performed: paracentesis Was there an food and nutrition services assistant present: No Site/Technique: left abdomen Results/Findings: moderate ascites Estimated blood loss (cc): 0 Complications: None; Tolerated procedure well Post Procedure Treatment Plan: observation Specimen: abd fluid
[2017-12-16] MEDS: Insulin LISPRO 300 UNITS/3 ML VIAL SQ SCH (17:27)
[2017-12-16 20:08] LABS: RBC,Peritoneal Fluid < 0.002 M/mcL
[2017-12-16 20:53] LABS: Appearance of Peritoneal Fl HAZY (Clear)
[2017-12-16] MEDS ORDERED: Insulin LISPRO 300 UNITS/3 ML VIAL SQ SCH (21:00)
[2017-12-16] MEDS: Spironolactone 25 MG TABLET PO SCH (21:12)
[2017-12-16] MEDS: Gabapentin 100 MG CAPSULE PO SCH (21:13)
[2017-12-16] MEDS: Metoprolol 100 MG TABLET PO SCH (21:13)
[2017-12-16] MEDS: Famotidine 20 MG TABLET PO SCH (21:13)
[2017-12-17 01:22] LABS: Basophils % 0.5 %; Red Cell Distribution Width 14.4 % (11.5-14.5)
[2017-12-17 01:23] LABS: Eosinophils % 1.6 %; Hematocrit 35.3 % (35.3-44.9); Hemoglobin 11.8 g/dL (11.5-15.4); Lymphocytes # 0.5 K/mcL (0.6-4.6); Lymphocytes % 26.7 %; Mean Corpuscular HGB Conc 33.4 g/dL (31.6-35.5); Mean Corpuscular Hemoglobin 30.4 pg (28.0-33.3); Monocytes # 0.2 K/mcL (0.0-1.3); Monocytes % 8.6 %; Neutrophils # 1.2 K/mcL (1.6-8.9); Red Blood Count 3.88 M/mcL (3.82-4.97); Segmented Neutrophils % 62.6 %
[2017-12-17 01:29] LABS: Platelet Count 32 K/mcL (140-400)
[2017-12-17 01:42] LABS: Platelet Estimate Decreased (Normal)
[2017-12-17 01:43] LABS: Alanine Aminotransferase 18 Units/L (7-52); Albumin 3.3 g/dL (3.5-5.7); Albumin/Globulin Ratio 1.7 (1.1-2.2); Alkaline Phosphatase 108 Units/L (34-104); Aspartate Amino Transferase 29 Units/L (13-39); BUN/Creatinine Ratio 19 (6-26); Bilirubin,Total 1.2 mg/dL (0.3-1.0); Blood Urea Nitrogen 14 mg/dL (8-23); Carbon Dioxide 25 mEq/L (23-29); Chloride 103 mEq/L (98-107); Chol/HDL Ratio 4.9 (0-4.9); Cholesterol 141 mg/dL (< 200); Glucose 439 mg/dL (70-105); HDL Cholesterol 29 mg/dL (40-59); LDL Cholesterol,Calculated 64 mg/dL (0-99); Osmolality,Calculated 299 (280-300); Potassium 3.9 mEq/L (3.5-5.1); Sodium 135 mEq/L (136-145); Total Protein 5.3 g/dL (6.4-8.9); Triglycerides 241 mg/dL (< 150); eGFR For African Americans > 60 (> 60); eGFR For Non-African Americans > 60 (> 60)
[2017-12-17] MEDS: (Fluticasone/Vilanterol [Breo Ellipta 100-25 Mcg Inh] IH SCH (08:47)
[2017-12-17] MEDS: Loratadine 10 MG TABLET PO SCH (08:50)
[2017-12-17] MEDS: Bumetanide 1 MG TABLET PO SCH (08:50)
[2017-12-17] MEDS: Metoprolol 100 MG TABLET PO SCH ×2 (08:50→21:18)
[2017-12-17] MEDS: Multivit/Ca/Min/Fe/FA 1 TAB TABLET PO SCH (08:50)
[2017-12-17] MEDS: Spironolactone 25 MG TABLET PO SCH ×2 (08:50→21:19)
[2017-12-17] MEDS: Gabapentin 100 MG CAPSULE PO SCH ×2 (08:50→21:18)
[2017-12-17] MEDS ORDERED: Isosorbide MONOnitrate (24 HR) 60 MG TAB.ER.24H PO SCH (09:00)
[2017-12-17] MEDS: Insulin LISPRO 300 UNITS/3 ML VIAL SQ SCH ×2 (09:02→12:01)
--- NOTE | 2017-12-17 09:30 | Cardiology Consult Note ---
Date of Encounter: 12/17/17 Time of Encounter: 09:27 Assessment and Plan (1) Chest pain Current Visit: No Status: Acute Chest pain with typical and atypical features. GRISEL negative. Given comorbid conditions only option at this point is more aggressive medical mgmt. Qualifiers: Chest pain type: precordial pain Qualified Code(s): R07.2 - Precordial pain Discussion w patient/family: The assessment and plan as outlined above was discussed with the patient and/or family members who expressed understanding and agreement. All questions were answered. Thank you for involving us in the care of your patient. Please call with any questions. History of Present Illness Consult date: 12/17/17 Requesting physician: Lavinia Tucker Consult reason: Chest pain Chief complaint: Chest pain History of present illness: Ms. Morgan is a 62 year old female with a history of CAD and multiple other medical problems including liver disease, esophageal varicees and pancytopenia. She presents with chest pain at rest, lasting several minutes. Somewhat different from previous angina. Past Med Surg Social Fam HX - Past Medical History Medical history: cirrhosis, coronary artery disease, diabetes, fibromyalgia, GERD, hyperlipidemia, hypertension, liver disease, myocardial infarction, thyroid disease, other Psychiatric history: anxiety - Past Surgical History Surgical History: hysterectomy, other - Social History Smoking Status: Never smoker Smokeless Tobacco Status: No Alcohol use: none Drug use: none - Family History Mother Living Status: Hx Family Cardiac Disorders: Yes (CAD) Hx Family Respiratory Disorders: Yes Father Living Status: Hx Family Cardiac Disorders: Yes Medications and Allergies LORazepam [Ativan] 0.5 mg PO DAILY PRN 12/31/15 [History] Lactulose 30 ml PO DAILY PRN 12/31/15 [History] Loratadine [Claritin] 10 mg PO DAILY 12/31/15 [History] Nitroglycerin [Nitrostat] 0.4 mg SL Q5M PRN 12/31/15 [History] Omeprazole [PriLOSEC] 40 mg PO BID 12/31/15 [History] Ranitidine HCl [Zantac] 150 mg PO HS 12/31/15 [History] metFORMIN [Glucophage] 1,000 mg PO BIDWM 12/31/15 [History] traMADol [Ultram] 50 mg PO Q6HR PRN 12/31/15 [History] Rosuvastatin Calcium [Crestor] 20 mg PO HS 09/11/16 [History] Albuterol Sulfate [Ventolin Hfa] 2 puff IH Q4H PRN 01/31/17 [History] Fluticasone Propionate Nasal [Flonase] 1 spray NS DAILY PRN 01/31/17 [History] Fluticasone/Vilanterol [Breo Ellipta 100-25 Mcg INH] 1 puff IH DAILY 01/31/17 [ History] Gabapentin [Neurontin] 100 mg PO BID 01/31/17 [History] Ipratropium/Albuterol Neb [Duoneb] 3 ml IH Q6HR PRN 01/31/17 [History] Meclizine HCl [Verticalm] 25 mg PO DAILY PRN 01/31/17 [History] Multivitamin [One Daily Essential] 1 tab PO DAILY 01/31/17 [History] Metoprolol [Lopressor] 100 mg PO BID #60 tablet 03/17/17 [Rx] Spironolactone [Aldactone] 50 mg PO BID 04/20/17 [History] Isosorbide MONOnitrate (24 HR) [Imdur] 30 mg PO DAILY 07/20/17 [History] Bumetanide [Bumex] 1 mg PO DAILY 11/17/17 [History] Insulin ASPART [NovoLOG] 0 unit SQ ACHS 11/17/17 [History] Ondansetron [Zofran] 8 mg PO BID PRN 12/16/17 [History] Zolpidem [Ambien] 5 mg PO HS PRN 12/16/17 [History] 3 Allergy/AdvReac Type Severity Reaction Status Date / Time Hydroxychloroquine Allergy Hives Verified 12/16/17 12:12 [From Plaquenil] atorvastatin [From Lipitor] AdvReac Muscle Pain Verified 12/16/17 12:12 escitalopram [From Lexapro] AdvReac See Verified 12/16/17 12:12 Comments All Systems Review: The remainder of the systems were reviewed and are negative Physical Examination Vital Signs, Last 4 Hours Temp Pulse Resp BP Pulse Ox 12/17/17 07:37 97.6 F 71 18 127/78 95 General: Conversant, No Apparent Distress HEENT: Atraumatic, Normocephaly, Mucus Membranes Moist Neck: No JVD, Normal carotid pulses Cardiac: Reg Rate and Rhythm, Normal S1 and S2, No Murmur Lungs: Other (decreased at bases) Neuro: Alert and responsive, No focal deficits noted Abdomen: Other (distended with decreased bowel sounds) Skin: No rashes noted on visualized skin Musculoskeletal: No Chest Wall Tenderness Results 12/17/17 00:34 12/17/17 00:34 Lab Results 12/16/17 12/17/17 12/17/17 17:51 00:34 00:34 WBC 1.9 L Hgb 11.8 Hct 35.3 Plt Count 32 L Sodium Potassium Chloride Carbon Dioxide BUN Creatinine Glucose Calcium Total Bilirubin AST ALT Alkaline Phosphatase Troponin I < 0.03 < 0.03 12/17/17 00:34 WBC Hgb Hct Plt Count Sodium 135 L Potassium 3.9 Chloride 103 Carbon Dioxide 25 BUN 14 Creatinine 0.74 Glucose 439 H Calcium 9.0 Total Bilirubin 1.2 H AST 29 ALT 18 Alkaline Phosphatase 108 H Troponin I - EKG Interpretation EKG results cardiology: no diagnostic ischemia Consult Discharge Plan - Plan Referrals: Paul Cantu CNP [Primary Care Provider] -
--- NOTE | 2017-12-17 12:45 | Internal Med Progress Note ---
Date of Encounter: 12/17/17 Time of Encounter: 12:07 - Assessment and plan (1) Ascites Current Visit: Yes Status: Acute Assessment and plan: H/O SIMON. Ascites secondary to Simon. She requires frequent paracentesis. Patient stated one week ago she had 3.5 L removed and yesterday 3.3 L of fluid. The increased abdominal swelling secondary to ascites was likely contributing to her chest discomfort and SOB as she feels better today. Abdomen is nontender The patient and her family are worried about the increased frequency of the paracentesis and are questioning how frequently this will have to occur. I explained its all individual and symptomatic management and I really did not have a clear answer for her. peritoneal fluid was hazy. RBCs less than 0.002, total new cells 139, neutrophils 9.0 lymphocytes 35.0 monocytes 7 other cells 49, peritoneal LDH is 31, peritoneal fluid culture revealed a few WBCs, moderate epithelial cells and no bacteria or yeast. Qualifiers: Ascites type: other type Qualified Code(s): R18.8 - Other ascites (2) CAD (coronary artery disease) Current Visit: Yes Status: Chronic Assessment and plan: Continue and/or aspirin statin and beta erwin Qualifiers: Coronary Disease-Associated Artery/Lesion type: [place] artery [place] vs. transplanted heart: [place] heart Associated angina: without angina Qualified Code(s): I25.10 - Atherosclerotic heart disease of [place] coronary artery without angina pectoris (3) Chest pain Current Visit: Yes Status: Acute Assessment and plan: Chest pain has resolved. Cardiac enzymes are negative. Patient is currently on room air. Echo report pending Cardiology saw the patient and increased her Imdur dose. monitor closely Qualifiers: Chest pain type: unspecified Qualified Code(s): R07.9 - Chest pain, unspecified (4) Hyperlipidemia Current Visit: Yes Status: Chronic Assessment and plan: continue crestor Qualifiers: Hyperlipidemia type: unspecified Qualified Code(s): E78.5 - Hyperlipidemia , unspecified (5) Hypertension Current Visit: Yes Status: Chronic Assessment and plan: BP is stable, continue BB Qualifiers: Hypertension type: essential hypertension Qualified Code(s): I10 - Essential (primary) hypertension (6) Leukopenia Current Visit: Yes Status: Chronic Assessment and plan: chronic with SIMON Qualifiers: Leukopenia type: unspecified Qualified Code(s): D72.819 - Decreased white blood cell count, unspecified (7) Liver cirrhosis secondary to SIMON Current Visit: Yes Status: Chronic (8) SIMON (nonalcoholic steatohepatitis) Current Visit: Yes Status: Acute (9) T2DM (type 2 diabetes mellitus) Current Visit: Yes Status: Chronic Assessment and plan: accu checks AC/HS and LSS coverage scale Qualifiers: Diabetes mellitus alf insulin use: with alf use Diabetes mellitus complication status: with hyperglycemia Qualified Code(s): E11.65 - Type 2 diabetes mellitus with hyperglycemia; Z79.4 - intermediate teacher (current) use of insulin; Z79.4 - skilled nursing (current) use of insulin; Z79.4 - intermediate teacher (current ) use of insulin; Z79.4 - intermediate teacher (current) use of insulin (10) Thrombocytopenia Current Visit: Yes Status: Chronic Assessment and plan: Chronic secondary to Simon, value chronically in the 30s and 40s. - Subjective Interval history: Sitting up in bed with at the bedside, no c/o fever, chills, abdominal pain, SOB, or chest pain. Tolerating diet. Answered questions regarding plan of care. - Constitutional Vitals: Temp Pulse Resp BP Pulse Ox 97.6 F 71 18 127/78 95 12/17/17 07:37 12/17/17 07:37 12/17/17 07:37 12/17/17 07:37 12/17/17 07:37 General appearance: Present: cooperative, A&O X 3, pleasant, obese, answers questions appropriately - Head Head exam: Present: atraumatic, normocephalic - Eye Eye exam: Present: PERRL, conjuntiva pink, sclera anicteric Pupils: Present: PERRL - Neck Neck exam general surgery: Present: supple, trachea midline. Absent: lymphadenopathy - Respiratory Respiratory exam: Present: CTAB. Absent: accessory muscle use, rales, rhonchi, wheezes - Cardiovascular Cardiovascular exam: Present: RRR, +S1, +S2. Absent: diastolic murmur, gallop, rubs, systolic murmur - GI/Abdominal GI/Abdominal exam: Present: distended, normal bowel sounds, soft, no peritoneal signs. Absent: tenderness Additional comments: softly distended, nontender, no fluid wave - Extremities Exam Extremities exam: Present: warm, radial pulses palpable and symmetrical. Absent : calf tenderness, cyanotic, pedal edema - Neurological Exam Neurological exam: Present: CN II-XII intact, oriented X3, no focal deficits. Absent: pronater drift, facial droop, speech deficit - Skin Skin exam: Present: dry, intact, normal color, warm Internal Medicine: Result - Labs CBC & Chem 7: 12/17/17 00:34 12/17/17 00:34 Labs: Short CBC 12/17/17 Range/Units 00:34 WBC 1.9 L (4.3-11.1) K/mcL Hgb 11.8 (11.5-15.4) g/dL Hct 35.3 (35.3-44.9) % Plt Count 32 L (140-400) K/mcL Neutrophils # 1.2 L (1.6-8.9) K/mcL BMP 12/17/17 00:34 Sodium 135 L Potassium 3.9 Chloride 103 Carbon Dioxide 25 BUN 14 Creatinine 0.74 Glucose 439 H Calcium 9.0 Cardiac Enzymes 12/16/17 12/17/17 Range/Units 17:51 00:34 Troponin I < 0.03 < 0.03 (< 0.04) ng/mL Liver Function 12/17/17 Range/Units 00:34 Total Bilirubin 1.2 H (0.3-1.0) mg/dL AST 29 (13-39) Units/L ALT 18 (7-52) Units/L Alkaline Phosphatase 108 H (34-104) Units/L Albumin 3.3 L (3.5-5.7) g/dL Consult Discharge Plan - Plan Referrals: Paul Cantu CNP [Primary Care Provider] -
[2017-12-17] MEDS ORDERED: Insulin LISPRO 300 UNITS/3 ML VIAL SQ SCH ×3 (17:15→21:00)
[2017-12-17] MEDS: Nitroglycerin 0.4 MG TAB.SUBL SL PRN ×2 (20:42→22:22)
[2017-12-17] MEDS: Isosorbide MONOnitrate (24 HR) 60 MG TAB.ER.24H PO SCH (21:18)
[2017-12-17] MEDS: Famotidine 20 MG TABLET PO SCH (21:19)
[2017-12-18 05:55] LABS: Red Blood Count 3.61 M/mcL (3.82-4.97); Red Cell Distribution Width 14.2 % (11.5-14.5)
[2017-12-18 05:56] LABS: Hematocrit 32.5 % (35.3-44.9); Hemoglobin 10.9 g/dL (11.5-15.4); Mean Corpuscular HGB Conc 33.5 g/dL (31.6-35.5); Mean Corpuscular Hemoglobin 30.2 pg (28.0-33.3); Mean Platelet Volume 12.4 fL (9.4-12.4)
[2017-12-18 05:57] LABS: Platelet Count 34 K/mcL (140-400)
[2017-12-18 06:55] LABS: Alanine Aminotransferase 17 Units/L (7-52); Albumin 3.2 g/dL (3.5-5.7); Albumin/Globulin Ratio 1.3 (1.1-2.2); Alkaline Phosphatase 102 Units/L (34-104); Aspartate Amino Transferase 27 Units/L (13-39); BUN/Creatinine Ratio 22 (6-26); Bilirubin,Total 1.1 mg/dL (0.3-1.0); Blood Urea Nitrogen 15 mg/dL (8-23); Calcium 8.8 mg/dL (8.6-10.3); Carbon Dioxide 25 mEq/L (23-29); Chloride 104 mEq/L (98-107); Globulin 2.4 g/dL (2.4-3.5); Glucose 334 mg/dL (70-105); Osmolality,Calculated 298 (280-300); Potassium 3.5 mEq/L (3.5-5.1); Sodium 137 mEq/L (136-145); Total Protein 5.6 g/dL (6.4-8.9); eGFR For African Americans > 60 (> 60); eGFR For Non-African Americans > 60 (> 60)
[2017-12-18] MEDS: Bumetanide 1 MG TABLET PO SCH (08:09)
[2017-12-18] MEDS: Isosorbide MONOnitrate (24 HR) 60 MG TAB.ER.24H PO SCH ×2 (08:09→20:11)
[2017-12-18] MEDS: Insulin LISPRO 300 UNITS/3 ML VIAL SQ SCH ×2 (08:09→12:15)
[2017-12-18] MEDS: Spironolactone 25 MG TABLET PO SCH (08:12)
[2017-12-18] MEDS: Gabapentin 100 MG CAPSULE PO SCH ×2 (08:12→20:11)
[2017-12-18] MEDS: Multivit/Ca/Min/Fe/FA 1 TAB TABLET PO SCH (08:12)
[2017-12-18] MEDS: (Fluticasone/Vilanterol [Breo Ellipta 100-25 Mcg Inh] IH SCH (08:12)
[2017-12-18] MEDS: Loratadine 10 MG TABLET PO SCH (08:12)
[2017-12-18] MEDS: Metoprolol 100 MG TABLET PO SCH ×2 (08:12→20:11)
--- NOTE | 2017-12-18 08:40 | Cardiology Progress Note ---
Date of Encounter: 12/18/17 Time of Encounter: 08:38 Assessment and Plan (1) Chest pain Current Visit: Yes Status: Acute Presented with chest pain. Troponin negative x 3. Known severe small vessel disease on [facility] 03/2016--no intervention at that time. PCI in 2012. Negative stress test 01/2017. 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 Hx of DM leading to SIMON progressing to cirrhosis complicated by recurrent ascites requiring paracentesis as well as esophageal varices sp banding x 3, pancytopenia 2/2 cirrhosis with Plt count <50. Pt experienced headache with nitro yesterday. Increased Imdur to 30mg BID in attempt to decrease side effect of headache. Pt denies any headaches. Reports 2 very brief episodes of chest pain at rest at ~7PM, left sided and achy. Resolved spontaneously. No recurrent chest pain since that time. Continue BB, Statin, and increased dose of Imdur. No ASA d/t thrombocytopenia. Cardiology signing off. Reconsult PRN. Continue medical management. Will coordinate outpt follow-up in 2-3 weeks. Qualifiers: Chest pain type: unspecified Qualified Code(s): R07.9 - Chest pain, unspecified (2) CAD (coronary artery disease) Current Visit: Yes Status: Chronic Hx of PCI in 2012. Negative stress test 01/2017. [facility] 03/2016 severe small vessel disease with medical management recommended. Continue Statin and BB. No ASA due to thrombocytopenia, PLT 34k. Qualifiers: Coronary Disease-Associated Artery/Lesion type: [place] artery [place] vs. transplanted heart: [place] heart Associated angina: without angina Qualified Code(s): I25.10 - Atherosclerotic heart disease of [place] coronary artery without angina pectoris Discussion w patient/family: The assessment and plan as outlined above was discussed with the patient and/or family members who expressed understanding and agreement. All questions were answered. Thank you for involving us in the care of your patient. Please call with any questions. I will discuss all the above with Dr. Joey Gant and make changes as necessary. Subjective Principal diagnosis: chest pain Interval history: Pt reports two very brief episodes of left sided aching chest pain that occurred ~7PM yesterday at rest. No recurrence since. TTE resulted--EF 65%, mild LVDD, no significant valvular dysfunction. Imdur was increased to 30mg BID yesterday, denies headache. Objective Vital Signs, Last 4 Hours Temp Pulse Resp BP Pulse Ox 12/18/17 07:45 97.8 F 72 16 120/69 95 Vital Signs Temp Pulse Resp BP Pulse Ox 12/18/17 07:45 97.8 F 72 16 120/69 95 12/18/17 03:22 98.0 F 70 16 117/62 97 12/18/17 00:07 98.3 F 68 16 110/65 97 12/17/17 22:27 77 110/69 12/17/17 22:22 131/72 12/17/17 20:47 81 108/64 12/17/17 20:41 80 108/63 12/17/17 19:00 98.7 F 79 16 134/64 95 12/17/17 16:31 98.8 F 74 16 135/71 98 12/17/17 12:10 97.5 F L 68 6 138/76 98 Intake and Output 12/17/17 12/18/17 12/18/17 22:59 07:59 15:59 Output Total Balance Output: Urine Other: Weight Blood Glucose* Patient Weight 12/19/17 00:59 Weight 91.444 kg General: Conversant, No Apparent Distress HEENT: Atraumatic, Normocephaly, Mucus Membranes Moist Neck: No JVD, Normal carotid pulses Cardiac: Reg Rate and Rhythm, Normal S1 and S2, No Murmur Lungs: Other (diminished) Neuro: Alert and responsive, No focal deficits noted Abdomen: Soft, Non-Tender Skin: No rashes noted on visualized skin Musculoskeletal: No Chest Wall Tenderness Extremities: No Clubbing, No Cyanosis, No Edema, Normal Pulses Results 12/18/17 04:34 12/18/17 04:34 Lab Results 12/18/17 12/18/17 04:34 04:34 WBC 1.7 L Hgb 10.9 L Hct 32.5 L Plt Count 34 L Sodium 137 Potassium 3.5 Chloride 104 Carbon Dioxide 25 BUN 15 Creatinine 0.69 Glucose 334 H Calcium 8.8 Total Bilirubin 1.1 H AST 27 ALT 17 Alkaline Phosphatase 102 Short CBC 12/18/17 Range/Units 04:34 WBC 1.7 L (4.3-11.1) K/mcL Hgb 10.9 L (11.5-15.4) g/dL Hct 32.5 L (35.3-44.9) % Plt Count 34 L (140-400) K/mcL BMP 12/18/17 Range/Units 04:34 Sodium 137 (136-145) mEq/L Potassium 3.5 (3.5-5.1) mEq/L Chloride 104 (98-107) mEq/L Carbon Dioxide 25 (23-29) mEq/L BUN 15 (8-23) mg/dL Creatinine 0.69 (0.60-1.20) mg/dL Glucose 334 H (70-105) mg/dL Calcium 8.8 (8.6-10.3) mg/dL Liver Function 12/18/17 Range/Units 04:34 Total Bilirubin 1.1 H (0.3-1.0) mg/dL AST 27 (13-39) Units/L ALT 17 (7-52) Units/L Alkaline Phosphatase 102 (34-104) Units/L Albumin 3.2 L (3.5-5.7) g/dL Impressions Echocardiogram 12/16/17 15:44 Impressions: LVEF 65%. Mild left ventricular diastolic dysfunction. Normal right ventricular structure and function. No significant valvular dysfunction. No pulmonary hypertension. Left Ventricular Wall Motion: Rest Echo Findings All wall segments showed normal motion. Findings: Study Quality * Technically adequate exam. ECG Findings * Normal sinus rhythm. Left Ventricle * LVEF 65%. * Normal LV chamber size, wall thickness and function. * Mild left ventricular diastolic dysfunction. Right Ventricle * Normal right ventricular structure and function. Left Atrium * Mildly dilated left atrium. Right Atrium * Normal right atrial size. Aortic Valve * No aortic regurgitation. * Aortic valve not well visualized. * No aortic stenosis. Mitral Valve * Normal mitral valve structure. * No mitral regurgitation. * No mitral stenosis. Tricuspid Valve * Tricuspid valve not well visualized. * Trace tricuspid regurgitation. Pulmonic Valve * Pulmonic valve is not well visualized. * No pulmonic stenosis. * No pulmonic regurgitation. Pulmonary Artery * Pulmonary artery not well visualized. Aorta * Normally sized aortic root. Pericardium * There is no pericardial effusion present. Interatrial Septum * Interatrial septum not well evaluated. IVC * The IVC is not well evaluated. Active Medications Albuterol Sulfate (Albuterol Inhaler) 2 puff IH Q4H PRN PRN Reason: Shortness Of Breath Stop: 06/17/18 15:16 Albuterol/Ipratropium (Duoneb) 3 ml IH Q6HR PRN PRN Reason: Shortness Of Breath Stop: 06/17/18 15:16 Bumetanide (Bumex) 1 mg PO DAILY KRISTIE Stop: 06/18/18 09:01 Last Admin: 12/18/17 08:09 Dose: 1 mg Dextrose/Water (Dextrose 50% (Syg)) 25 ml IVP AD PRN PRN Reason: Hypoglycemia Stop: 06/17/18 15:20 Dextrose/Water (Dextrose 50% (Syg)) 25 ml IVP AD PRN PRN Reason: Hypoglycemia Stop: 06/17/18 15:24 Famotidine (Pepcid) 20 mg PO HS [facility] Stop: 06/17/18 21:01 Last Admin: 12/17/17 21:19 Dose: 20 mg Fluticasone Propionate (Flonase) 50 mcg NS DAILY PRN; Protocol PRN Reason: Allergy Symptoms Stop: 06/17/18 15:16 Gabapentin (Neurontin) 100 mg PO BID [facility] Stop: 06/17/18 21:01 Last Admin: 12/18/17 08:12 Dose: 100 mg Glucagon (Glucagen) 1 mg IM ONCE PRN PRN Reason: Hypoglycemia Stop: 06/17/18 15:20 Glucose (Gluctose) 15 gm PO ONCE PRN PRN Reason: Hypoglycemia Stop: 06/17/18 15:20 Glucose (Gluctose) 30 gm PO ONCE PRN PRN Reason: Hypoglycemia Stop: 06/17/18 15:20 Glucose (Gluctose) 15 gm PO ONCE PRN PRN Reason: Hypoglycemia Stop: 06/17/18 15:24 Dextrose (Dextrose 5%) 1,000 mls @ 100 mls/hr IVC .Q10H PRN PRN Reason: HYPOGLYCEMIA Stop: 06/17/18 15:20 Dextrose (Dextrose 5%) 1,000 mls @ 100 mls/hr IVC .Q10H PRN PRN Reason: HYPOGLYCEMIA Stop: 06/17/18 15:24 Insulin Human Lispro (Humalog) 0 units SQ HS KRISTIE PRN Reason: Protocol Stop: 06/18/18 21:01 Last Admin: 12/17/17 21:20 Dose: 18 units Insulin Human Lispro (Humalog) 0 units SQ TIDAC KRISTIE PRN Reason: Protocol Stop: 06/18/18 17:16 Last Admin: 12/18/17 08:09 Dose: 14 units Isosorbide Mononitrate (Imdur) 30 mg PO BID [facility] Stop: 06/18/18 21:01 Last Admin: 12/18/17 08:09 Dose: 30 mg Loratadine (Claritin) 10 mg PO DAILY KRISTIE PRN Reason: Protocol Stop: 06/18/18 09:01 Last Admin: 12/18/17 08:12 Dose: 10 mg Lorazepam (Ativan) 0.5 mg PO DAILY PRN PRN Reason: Anxiety Stop: 06/17/18 15:16 Meclizine HCl (Antivert) 25 mg PO DAILY PRN PRN Reason: DIZZINESS Metoprolol Tartrate (Lopressor) 100 mg PO BID [facility] Stop: 06/17/18 21:01 Last Admin: 12/18/17 08:12 Dose: 100 mg Multivitamins/Calcium (Thera M Plus) 1 tab PO DAILY [facility] Stop: 06/18/18 09:01 Last Admin: 12/18/17 08:12 Dose: 1 tab Naloxone HCl (Narcan) 0.4 mg IVP Q2MIN PRN PRN Reason: SEE COMMENTS Stop: 06/17/18 15:20 Nitroglycerin (Nitroglycerin) 0.4 mg SL Q5MIN PRN PRN Reason: Chest Pain Stop: 06/17/18 13:21 Last Admin: 12/17/17 22:22 Dose: 0.4 mg Omeprazole (Prilosec) 40 mg PO BID [facility] PRN Reason: Protocol Stop: 06/17/18 21:01 Last Admin: 12/18/17 08:12 Dose: 40 mg Ondansetron HCl (Zofran Odt) 8 mg PO BID PRN PRN Reason: Nausea Last Admin: 12/18/17 08:11 Dose: 8 mg Pharmacy Profile Note (Patient Taking Own Medication) 0 each IH DAILY [facility] Stop: 06/18/18 09:01 Last Admin: 12/18/17 08:12 Dose: Not Given Rosuvastatin Calcium (Crestor) 20 mg PO HS [facility] Stop: 06/17/18 21:01 Last Admin: 12/17/17 21:18 Dose: 20 mg Spironolactone (Aldactone) 50 mg PO BID KRISTIE Stop: 06/17/18 21:01 Last Admin: 12/18/17 08:12 Dose: 50 mg Tramadol HCl (Ultram) 50 mg PO Q6HR PRN PRN Reason: Pain Stop: 06/17/18 15:16 Zolpidem Tartrate (Ambien) 5 mg PO HS PRN; Protocol PRN Reason: Sleep Stop: 06/17/18 15:16 - Imaging and Cardiology Stress Test: report reviewed Echo: report reviewed Cardiac cath: report reviewed - EKG Interpretation EKG results cardiology: other (12 hr tele AVG HR 72, SR, no significant pauses or arrhythmias) Consult Discharge Plan - Plan Referrals: Paul Cantu, LABORER OPERATOR [Primary Care Provider] -
[2017-12-18] MEDS ORDERED: Insulin LISPRO 300 UNITS/3 ML VIAL SQ ONE (12:04)
--- NOTE | 2017-12-18 12:22 | Internal Med Progress Note ---
Date of Encounter: 12/18/17 Time of Encounter: 12:14 - Assessment and plan (1) Ascites Current Visit: Yes Status: Acute Assessment and plan: H/O SIMON. Ascites secondary to Simon. She requires frequent paracentesis. Patient stated one week ago she had 3.5 L removed and 12/16/17 3.3 L of fluid. The increased abdominal swelling secondary to ascites was likely contributing to her chest discomfort and SOB as she feels better today. Abdomen is nontender The patient and her family are worried about the increased frequency of the paracentesis and are questioning how frequently this will have to occur. I explained its all individual and symptomatic management and I really did not have a clear answer for her. peritoneal fluid was hazy. RBCs less than 0.002, total new cells 139, neutrophils 9.0 lymphocytes 35.0 monocytes 7 other cells 49, peritoneal LDH is 31, peritoneal fluid culture revealed a few WBCs, moderate epithelial cells and no bacteria or yeast. Patient with increasing abdominal ascites today. Consulted GI service who is known to the patient. He recommends consulting IR regarding another paracentesis in am. He also recommended increasing Aldactone from 50-100 twice a day. Would like a urine sodium checked in the a.m. and colonoscopy as outpatient the end of month. Qualifiers: Ascites type: other type Qualified Code(s): R18.8 - Other ascites (2) CAD (coronary artery disease) Current Visit: Yes Status: Chronic Assessment and plan: Continue aspirin statin and beta erwin Qualifiers: Coronary Disease-Associated Artery/Lesion type: [place] artery [place] vs. transplanted heart: [place] heart Associated angina: without angina Qualified Code(s): I25.10 - Atherosclerotic heart disease of [place] coronary artery without angina pectoris (3) Chest pain Current Visit: Yes Status: Resolved Assessment and plan: Chest pain has resolved. Cardiac enzymes are negative. Patient is currently on room air. Echo report Cardiology saw the patient and increased her Imdur dose. monitor closely Qualifiers: Chest pain type: unspecified Qualified Code(s): R07.9 - Chest pain, unspecified (4) Hyperlipidemia Current Visit: Yes Status: Chronic Assessment and plan: continue home crestor Qualifiers: Hyperlipidemia type: unspecified Qualified Code(s): E78.5 - Hyperlipidemia , unspecified (5) Hypertension Current Visit: Yes Status: Chronic Assessment and plan: BP is stable, continue the BB Qualifiers: Hypertension type: essential hypertension Qualified Code(s): I10 - Essential (primary) hypertension (6) Leukopenia Current Visit: Yes Status: Chronic Assessment and plan: chronic with SIMON, monitor labs Qualifiers: Leukopenia type: unspecified Qualified Code(s): D72.819 - Decreased white blood cell count, unspecified (7) 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 - Subjective Interval history: Patient is lying in bed with her at the bedside chair. She has no complaints of pain but she feels that her abdomen is getting larger. She denies any chest pain or shortness of breath. Her glucose has also been elevated and I talked to her about watching herself concentrated sweet intake. Also discussed sodium restrictions and fluid restrictions. S - Constitutional Vitals: Temp Pulse Resp BP Pulse Ox 99.0 F 72 16 135/72 94 12/18/17 11:52 12/18/17 11:52 12/18/17 11:52 12/18/17 11:52 12/18/17 11:52 General appearance: Present: cooperative, A&O X 3, pleasant, obese, answers questions appropriately - Head Head exam: Present: atraumatic, normocephalic - Eye Eye exam: Present: PERRL, conjuntiva pink, sclera anicteric Pupils: Present: PERRL - Neck Neck exam general surgery: Present: supple, trachea midline. Absent: lymphadenopathy - Respiratory Respiratory exam: Present: decreased breath sounds, CTAB. Absent: accessory muscle use, rales, rhonchi, wheezes - Cardiovascular Cardiovascular exam: Present: RRR, +S1, +S2. Absent: diastolic murmur, gallop, rubs, systolic murmur - GI/Abdominal GI/Abdominal exam: Present: distended, firm, normal bowel sounds, no peritoneal signs. Absent: rigid, tenderness - Extremities Exam Extremities exam: Present: warm, radial pulses palpable and symmetrical. Absent : calf tenderness, cyanotic, pedal edema - Neurological Exam Neurological exam: Present: CN II-XII intact, oriented X3, no focal deficits. Absent: pronater drift, facial droop, speech deficit - Skin Skin exam: Present: dry, intact, normal color, warm Internal Medicine: Result - Labs CBC & Chem 7: 12/18/17 04:34 12/18/17 04:34 Labs: Short CBC 12/18/17 Range/Units 04:34 WBC 1.7 L (4.3-11.1) K/mcL Hgb 10.9 L (11.5-15.4) g/dL Hct 32.5 L (35.3-44.9) % Plt Count 34 L (140-400) K/mcL BMP 12/18/17 04:34 Sodium 137 Potassium 3.5 Chloride 104 Carbon Dioxide 25 BUN 15 Creatinine 0.69 Glucose 334 H Calcium 8.8 Liver Function 12/18/17 Range/Units 04:34 Total Bilirubin 1.1 H (0.3-1.0) mg/dL AST 27 (13-39) Units/L ALT 17 (7-52) Units/L Alkaline Phosphatase 102 (34-104) Units/L Albumin 3.2 L (3.5-5.7) g/dL - Impressions Impressions Echocardiogram 12/16/17 15:44 Impressions: LVEF 65%. Mild left ventricular diastolic dysfunction. Normal right ventricular structure and function. No significant valvular dysfunction. No pulmonary hypertension. Left Ventricular Wall Motion: Rest Echo Findings All wall segments showed normal motion. Findings: Study Quality * Technically adequate exam. ECG Findings * Normal sinus rhythm. Left Ventricle * LVEF 65%. * Normal LV chamber size, wall thickness and function. * Mild left ventricular diastolic dysfunction. Right Ventricle * Normal right ventricular structure and function. Left Atrium * Mildly dilated left atrium. Right Atrium * Normal right atrial size. Aortic Valve * No aortic regurgitation. * Aortic valve not well visualized. * No aortic stenosis. Mitral Valve * Normal mitral valve structure. * No mitral regurgitation. * No mitral stenosis. Tricuspid Valve * Tricuspid valve not well visualized. * Trace tricuspid regurgitation. Pulmonic Valve * Pulmonic valve is not well visualized. * No pulmonic stenosis. * No pulmonic regurgitation. Pulmonary Artery * Pulmonary artery not well visualized. Aorta * Normally sized aortic root. Pericardium * There is no pericardial effusion present. Interatrial Septum * Interatrial septum not well evaluated. IVC * The IVC is not well evaluated. Consult Discharge Plan - Plan Referrals: [facility] [Provider Group] (Office will call to schedule appointment in 2 -3 weeks) Paul Cantu CNP [Primary Care Provider] -
--- NOTE | 2017-12-18 12:56 | Gastroenterology Consult Note ---
Date of Encounter: 12/18/17 Time of Encounter: 12:00 - Time Spent With Patient Total time spent is greater than 50% in coordination of care (as documented) at patient's floor/unit and/or counseling patient: GI History of Present Illness - Data of Consult Patient: known to practice within the last 3 years Consult date: 12/18/17 Requesting Physician: Lavinia Tucker CNP - Consult Narrative Reason for consult: Management of ascites History of present illness: Ms. Morgan is a 62 year old female known to me from an office visit. She has had a couple of paracentesis in the last 3 weeks H which she had about 3-1/2 L of fluid withdrawn. The fluid has been transudate. No history of fever or chills. [facility] and Aldactone 100 mg a day. He had been initiated see me for a screening colonoscopy at the office. This was to be scheduled once we have had a handle on her ascites Check urine for lites and make sure that the diuretics are working Past Med Surg Social Fam HX - Past Medical History Medical history: cirrhosis, coronary artery disease, diabetes, fibromyalgia, GERD, hyperlipidemia, hypertension, liver disease, myocardial infarction, thyroid disease, other Psychiatric history: anxiety - Past Surgical History Surgical History: hysterectomy, other - Social History Smoking Status: Never smoker Smokeless Tobacco Status: No Alcohol use: none Drug use: none - Family History Mother Living Status: Hx Family Cardiac Disorders: Yes (CAD) Hx Family Respiratory Disorders: Yes Father Living Status: Hx Family Cardiac Disorders: Yes - Constitutional Vitals: Temp Pulse Resp BP Pulse Ox 99.0 F 72 16 135/72 94 12/18/17 11:52 12/18/17 11:52 12/18/17 11:52 12/18/17 11:52 12/18/17 11:52 General appearance: Present: cooperative, A&O X 3, pleasant, no acute distress - Head Head exam: Present: atraumatic, normal inspection, normocephalic - Eye Eye exam: Present: EOMI, normal appearance, PERRL - Neck Neck exam general surgery: Present: full ROM, normal inspection, supple - Respiratory Respiratory exam: Present: CTAB - GI/Abdominal GI/Abdominal exam: Present: distended, hepatomegaly, normal bowel sounds, soft, splenomegaly Results - Labs CBC & Chem 7: 12/18/17 04:34 12/18/17 04:34 Labs: Last Result Calcium 8.8 mg/dL (8.6-10.3) 12/18/17 04:34 Troponin I < 0.03 ng/mL (< 0.04) 12/17/17 00:34 Triglycerides 241 mg/dL (< 150) H 12/17/17 00:34 Peritoneal Appearance HAZY (Clear) 12/16/17 15:50 Peritoneal Volume 1100.0 mL 12/16/17 15:50 Peritoneal RBC < 0.002 M/mcL (0.000-0.002) 12/16/17 15:50 Periton Tot Nuc Cells 139 TNC/mcL (0-300) 12/16/17 15:50 Periton Lymphocytes % 35.0 % 12/16/17 15:50 Periton Monocytes % 7.0 % 12/16/17 15:50 Periton Other Cells % 49.0 % 12/16/17 15:50 Peritoneal LDH 31 Units/L (No Ref Range) 12/16/17 15:50 Entire Visit Hgb 10.9 g/dL (11.5-15.4) L 12/18/17 04:34 Hct 32.5 % (35.3-44.9) L 12/18/17 04:34 Total Bilirubin 1.1 mg/dL (0.3-1.0) H 12/18/17 04:34 AST 27 Units/L (13-39) 12/18/17 04:34 ALT 17 Units/L (7-52) 12/18/17 04:34 Ammonia 42 mcmol/L (16-53) 12/16/17 15:52 - Impressions Impressions Echocardiogram 12/16/17 15:44 Impressions: LVEF 65%. Mild left ventricular diastolic dysfunction. Normal right ventricular structure and function. No significant valvular dysfunction. No pulmonary hypertension. Left Ventricular Wall Motion: Rest Echo Findings All wall segments showed normal motion. Findings: Study Quality * Technically adequate exam. ECG Findings * Normal sinus rhythm. Left Ventricle * LVEF 65%. * Normal LV chamber size, wall thickness and function. * Mild left ventricular diastolic dysfunction. Right Ventricle * Normal right ventricular structure and function. Left Atrium * Mildly dilated left atrium. Right Atrium * Normal right atrial size. Aortic Valve * No aortic regurgitation. * Aortic valve not well visualized. * No aortic stenosis. Mitral Valve * Normal mitral valve structure. * No mitral regurgitation. * No mitral stenosis. Tricuspid Valve * Tricuspid valve not well visualized. * Trace tricuspid regurgitation. Pulmonic Valve * Pulmonic valve is not well visualized. * No pulmonic stenosis. * No pulmonic regurgitation. Pulmonary Artery * Pulmonary artery not well visualized. Aorta * Normally sized aortic root. Pericardium * There is no pericardial effusion present. Interatrial Septum * Interatrial septum not well evaluated. IVC * The IVC is not well evaluated. Consult Discharge Plan - Plan Referrals: [facility] [place] [Provider Group] (Office will call to schedule appointment in 2 -3 weeks) Nikhil Brambila MD [Partnered Physician] - (follow up appointmet web requested. office will call with date and time of appointment. ) Paul Cantu CNP [Primary Care Provider] -
[2017-12-18] MEDS ORDERED: *HR* Dextrose 50 % in Water (Syg) 50 ML SYRINGE IVP PRN (13:05)
[2017-12-18] MEDS: Insulin Human Regular 100 UNIT in 0.9 % Sodium Chloride 100 ML IVC SCH ×2 (14:18→22:16)
[2017-12-18] MEDS: Famotidine 20 MG TABLET PO SCH (20:11)
[2017-12-19] MEDS ORDERED: Insulin DETEMIR 100 UNIT/ML X5UNITS SQ SCH (00:15)
[2017-12-19 05:41] LABS: Mean Platelet Volume 12.2 fL (9.4-12.4)
[2017-12-19 05:43] LABS: Hematocrit 32.2 % (35.3-44.9); Mean Corpuscular HGB Conc 34.2 g/dL (31.6-35.5); Mean Corpuscular Hemoglobin 31.1 pg (28.0-33.3); Red Blood Count 3.54 M/mcL (3.82-4.97)
[2017-12-19 05:49] LABS: INR 1.2; Prothrombin Time 12.6 Seconds (9.4-12.1)
[2017-12-19 05:52] LABS: Platelet Count 34 K/mcL (140-400)
[2017-12-19 05:53] LABS: Activated Partial Thrombo Time 19.1 Seconds (26.0-36.0)
[2017-12-19 06:07] LABS: Alanine Aminotransferase 16 Units/L (7-52); Albumin 3.1 g/dL (3.5-5.7); Albumin/Globulin Ratio 1.4 (1.1-2.2); Alkaline Phosphatase 93 Units/L (34-104); Aspartate Amino Transferase 30 Units/L (13-39); BUN/Creatinine Ratio 29 (6-26); Bilirubin,Total 1.1 mg/dL (0.3-1.0); Blood Urea Nitrogen 25 mg/dL (8-23); Calcium 8.8 mg/dL (8.6-10.3); Carbon Dioxide 27 mEq/L (23-29); Chloride 102 mEq/L (98-107); Globulin 2.2 g/dL (2.4-3.5); Glucose 286 mg/dL (70-105); Osmolality,Calculated 297 (280-300); Potassium 3.8 mEq/L (3.5-5.1); Sodium 136 mEq/L (136-145); Total Protein 5.3 g/dL (6.4-8.9); eGFR For African Americans > 60 (> 60); eGFR For Non-African Americans > 60 (> 60)
[2017-12-19] MEDS: Insulin LISPRO 300 UNITS/3 ML VIAL SQ SCH ×3 (07:32→12:03)
[2017-12-19] MEDS: Loratadine 10 MG TABLET PO SCH (08:20)
[2017-12-19] MEDS: Isosorbide MONOnitrate (24 HR) 60 MG TAB.ER.24H PO SCH (08:20)
[2017-12-19] MEDS: Bumetanide 1 MG TABLET PO SCH (08:21)
[2017-12-19] MEDS: Metoprolol 100 MG TABLET PO SCH (08:21)
[2017-12-19] MEDS: Gabapentin 100 MG CAPSULE PO SCH (08:21)
[2017-12-19] MEDS: Multivit/Ca/Min/Fe/FA 1 TAB TABLET PO SCH (08:21)
[2017-12-19] MEDS: (Fluticasone/Vilanterol [Breo Ellipta 100-25 Mcg Inh] IH SCH (08:49)
--- NOTE | 2017-12-19 11:37 | Discharge Summary ---
- NOTES TO OUTPATIENT PROVIDER Notes to Outpatient Provider: Patient has endocrinology appointment in a.m. Close follow-up with a primary care physician. GI to follow-up the end of the month for outpatient colonoscopy Orders not resulted at time of discharge: Pending orders 12/19/17 VIRGIL US abdomen limited [IR] Routine Date of Encounter: 12/19/17 Time of Encounter: 11:34 - Discharge Diagnosis (1) T2DM (type 2 diabetes mellitus) Priority: Primary Status: Chronic Comments: Patient with poor hyperglycemic control. She states she had an insulin pump which was discontinued by her insurance company and she is having issues with her blood glucose sets. She has an appointment with her cna gna tomorrow at 1 PM. Utilized a insulin drip here yesterday to control her glucose which was in the 500s on a high-dose sliding scale. The insulin drip was discontinued last night when she dropped into the 100s. She is currently on a high-dose insulin sliding scale. 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 Dr Garzaded a paracentesis by IR today and increased her aldactone dose IR evaluated the patient this morning and stated there is not enough fluid to perform the paracentesis. She will follow-up outpatient for further management of her ascites. She had a paracentesis on Tuesday for 3.3 L, 1 the week before for 3.6 L She states when he ascites gets bad she become short of breath and does have intermittent chest pain. Qualifiers: Ascites type: other type Qualified Code(s): R18.8 - Other ascites (3) CAD (coronary artery disease) Priority: Primary Status: Chronic Comments: Known CAD followed by cardiology increased Imdur dose Qualifiers: Coronary Disease-Associated Artery/Lesion type: [place] artery [place] vs. transplanted heart: [place] heart Associated angina: without angina Qualified Code(s): I25.10 - Atherosclerotic heart disease of [place] coronary artery without angina pectoris (4) Chest pain Priority: Primary Status: Resolved Comments: Patient has been chest pain-free since her paracentesis on Tuesday Negative cardiac enzymes On room air, echo obtained and reviewed: LVEF 65%, mild left ventricular diastolic dysfunction, normal right ventricular structure and function, no significant valvular dysfunction, no pulmonary hypertension, all wall segments showed normal motion. Radiology saw the patient and recommended more aggressive medical management. Qualifiers: Chest pain type: unspecified Qualified Code(s): R07.9 - Chest pain, unspecified (5) Hyperlipidemia Priority: Primary Status: Chronic Qualifiers: Hyperlipidemia type: unspecified Qualified Code(s): E78.5 - Hyperlipidemia , unspecified (6) Hypertension Priority: Primary Status: Chronic Comments: Blood pressure is stable continue the beta erwin Qualifiers: Hypertension type: essential hypertension Qualified Code(s): I10 - Essential (primary) hypertension (7) Leukopenia Priority: Primary Status: Chronic Comments: Chronic with Connelly and baseline range for this patient Qualifiers: Leukopenia type: unspecified Qualified Code(s): D72.819 - Decreased white blood cell count, unspecified (8) 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 Morgan is a 62 year old female history of Connelly, CAD, diabetes mellitus type 2, fibromyalgia, GERD, hyperlipidemia, hypertension, myocardial infarction , and thyroid disease. She presented with chest pain and difficulty breathing. She stated that chest pain was worse with activity and breathing. She also had a constant dull left-sided chest discomfort radiation to the mid back. She denied fevers, chills, abdominal pain or extremity swelling or pain. She underwent paracentesis 3 days before admission with 3.5 L of peritoneal fluid drained.. She reported her abdomen was again swollen and she has regained her weight that she had lost. She felt weak and fatigued. She had a repeat paracentesis with 3.1 L removed. Her chest pain was relieved after the paracentesis. GI was consult and saw the patient while she was here and increased her Aldactone dose. Also recommend paracentesis but IR evaluated her abdomen this morning and stated there was not enough fluid to drain Cardiology saw the patient and increased her Imdur dose and recommended more medical management. Patient's blood glucose was very poorly controlled during her admission requiring insulin drip at 1.. She will be discharged to follow-up with her cna gna for a scheduled appointment tomorrow on her home medications. Please see details in the assessment and plan for further information regarding this admission - Time Spent with Patient Total time spent providing and/or coordinating discharge services: Less than 30 minutes - Discharge Medications Prescriptions: Isosorbide MONOnitrate (24 HR) [Imdur] 30 mg PO BID 30 Days #60 tab.er.24h Spironolactone [Aldactone] 100 mg PO BID 30 Days #60 tablet Home Medications: LORazepam [Ativan] 0.5 mg PO DAILY PRN 12/31/15 [History] Lactulose 30 ml PO DAILY PRN 12/31/15 [History] Loratadine [Claritin] 10 mg PO DAILY 12/31/15 [History] Nitroglycerin [Nitrostat] 0.4 mg SL Q5M PRN 12/31/15 [History] Omeprazole [PriLOSEC] 40 mg PO BID 12/31/15 [History] Ranitidine HCl [Zantac] 150 mg PO HS 12/31/15 [History] metFORMIN [Glucophage] 1,000 mg PO BIDWM 12/31/15 [History] traMADol [Ultram] 50 mg PO Q6HR PRN 12/31/15 [History] Rosuvastatin Calcium [Crestor] 20 mg PO HS 09/11/16 [History] Albuterol Sulfate [Ventolin Hfa] 2 puff IH Q4H PRN 01/31/17 [History] Fluticasone Propionate Nasal [Flonase] 1 spray NS DAILY PRN 01/31/17 [History] Fluticasone/Vilanterol [Breo Ellipta 100-25 Mcg INH] 1 puff IH DAILY 01/31/17 [ History] Gabapentin [Neurontin] 100 mg PO BID 01/31/17 [History] Ipratropium/Albuterol Neb [Duoneb] 3 ml IH Q6HR PRN 01/31/17 [History] Meclizine HCl [Verticalm] 25 mg PO DAILY PRN 01/31/17 [History] Multivitamin [One Daily Essential] 1 tab PO DAILY 01/31/17 [History] Metoprolol [Lopressor] 100 mg PO BID #60 tablet 03/17/17 [Rx] Bumetanide [Bumex] 1 mg PO DAILY 11/17/17 [History] Insulin ASPART [NovoLOG] 0 unit SQ ACHS 11/17/17 [History] Ondansetron [Zofran] 8 mg PO BID PRN 12/16/17 [History] Zolpidem [Ambien] 5 mg PO HS PRN 12/16/17 [History] Isosorbide MONOnitrate (24 HR) [Imdur] 30 mg PO BID 30 Days #60 tab.er.24h 12/19 [Rx] Spironolactone [Aldactone] 100 mg PO BID 30 Days #60 tablet 12/19/17 [Rx] Allergies/Adverse Reactions: 3 Allergy/AdvReac Type Severity Reaction Status Date / Time Hydroxychloroquine Allergy Hives Verified 12/16/17 12:12 [From Plaquenil] atorvastatin [From Lipitor] AdvReac Muscle Pain Verified 12/16/17 12:12 escitalopram [From Lexapro] AdvReac See Verified 12/16/17 12:12 Comments Date of admission: 12/18/17 20:42 Primary care physician: Paul Cantu CNP Discharging clinician: Teresa Kirk Anticipated date of discharge: 12/19/17 - Constitutional Vitals: Temp Pulse Resp BP Pulse Ox 97.9 F 73 18 119/68 92 12/19/17 07:12 12/19/17 07:12 12/19/17 07:12 12/19/17 07:12 12/19/17 07:12 General appearance: Present: cooperative, A&O X 3, pleasant, obese, answers questions appropriately - Head Head exam: Present: atraumatic, normocephalic - Eye Eye exam: Present: PERRL, conjuntiva pink, sclera anicteric Pupils: Present: PERRL - Neck Neck exam general surgery: Present: supple, trachea midline. Absent: lymphadenopathy - Respiratory Respiratory exam: Present: CTAB. Absent: accessory muscle use, rales, rhonchi, wheezes - Cardiovascular Cardiovascular exam: Present: RRR, +S1, +S2. Absent: diastolic murmur, gallop, rubs, systolic murmur - GI/Abdominal GI/Abdominal exam: Present: firm, normal bowel sounds, no peritoneal signs. Absent: distended, guarding, rigid, tenderness - Extremities Exam Extremities exam: Present: warm, radial pulses palpable and symmetrical. Absent : calf tenderness, cyanotic, pedal edema - Neurological Exam Neurological exam: Present: alert, CN II-XII intact, normal gait, oriented X3, no focal deficits. Absent: pronater drift, facial droop, speech deficit - Skin Skin exam: Present: dry, intact, normal color, warm - Patient Status Disposition: Home, Self-Care Condition: Fair Functional capacity at discharge: independent ambulation Overall status at discharge: patient is progressing back to baseline - Discharge Instructions Follow Up With: Cardiology [facility] [Provider Group] (Office will call to schedule appointment in 2 -3 weeks) Nikhil Brambila MD [Partnered Physician] - (follow up appointmet web requested. office will call with date and time of appointment. ) Paul Cantu CNP [Primary Care Provider] - - Diet and Activity Activity: increase activity as tolerated, resume usual activities as tolerated Diet: diabetic diet, low salt diet
[2017-12-19 11:39] VITALS: BP 106/67
--- NOTE | 2017-12-19 16:08 | Electrocardiograph Report ---
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
--- NOTE | 2017-12-19 19:45 | Electrocardiograph Report ---
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
[2017-12-19] MEDS ORDERED: Insulin LISPRO 300 UNITS/3 ML VIAL SQ SCH (21:00)
== END 2017-12-19 13:10 | disposition home or self-care (01) | DRG 313 ==
LOC: 3BNU 12:08 → EMEROO 12:08 → 3BNU 15:00
PROVIDERS: ADMIT Registered Nurse; ATTEND Registered Nurse

== ENCOUNTER 2018-03-09 13:26 | Observation (INO) ==
[2018-03-09] MEDS ORDERED: *HR* FentaNYL (PF) 100 MCG/2 ML VIAL IVP ONE (14:30)
[2018-03-09 14:57] LABS: Basophils % 0.6 %; Red Cell Distribution Width 13.8 % (11.5-14.5)
[2018-03-09 14:58] LABS: Eosinophils # 0.1 K/mcL (0.0-0.6); Eosinophils % 2.9 %; Hematocrit 33.7 % (35.3-44.9); Hemoglobin 11.2 g/dL (11.5-15.4); Lymphocytes # 0.4 K/mcL (0.6-4.6); Lymphocytes % 23.1 %; Mean Corpuscular HGB Conc 33.2 g/dL (31.6-35.5); Mean Corpuscular Hemoglobin 30.4 pg (28.0-33.3); Mean Corpuscular Volume 91.6 fL (83.0-100.0); Mean Platelet Volume 11.3 fL (9.4-12.4); Monocytes # 0.2 K/mcL (0.0-1.3); Monocytes % 9.2 %; Neutrophils # 1.1 K/mcL (1.6-8.9); Nucleated Red Blood Cells 1.2 /100 WBC (0); Red Blood Count 3.68 M/mcL (3.82-4.97); Segmented Neutrophils % 64.2 %
[2018-03-09 15:01] LABS: INR 1.2; Prothrombin Time 12.8 Seconds (9.4-12.1)
[2018-03-09 15:03] LABS: Platelet Count 39 K/mcL (140-400); Platelet Estimate Decreased (Normal)
[2018-03-09 15:04] LABS: Activated Partial Thrombo Time 32.5 Seconds (26.0-36.0)
[2018-03-09 15:08] LABS: BUN/Creatinine Ratio 18 (6-26); Blood Urea Nitrogen 11 mg/dL (8-23); Calcium 8.8 mg/dL (8.6-10.3); Carbon Dioxide 27 mEq/L (23-29); Chloride 105 mEq/L (98-107); Glucose 230 mg/dL (70-105); Osmolality,Calculated 297 (280-300); Potassium 3.6 mEq/L (3.5-5.1); Sodium 140 mEq/L (136-145); eGFR For African Americans > 60 (> 60); eGFR For Non-African Americans > 60 (> 60)
[2018-03-09 15:09] LABS: Troponin I < 0.03 ng/mL (< 0.04)
--- NOTE | 2018-03-09 15:09 | Emergency Department Note ---
Disposition Clinical Impression: Chest pain Qualifiers: Chest pain type: unspecified Qualified Code(s): R07.9 - Chest pain, unspecified Dyspnea Qualifiers: Dyspnea type: shortness of breath Qualified Code(s): R06.02 - Shortness of breath Cirrhosis of liver with ascites Qualifiers: Hepatic cirrhosis type: unspecified hepatic cirrhosis Qualified Code(s): K74.60 - Unspecified cirrhosis of liver Disposition: Admitted As Inpatient Referrals: NONE,PCP [Primary Care Provider] - Forms: ED Satisfaction Letter Time of Disposition: 15:49 Chest Pain HPI - General Chief Complaint: ED Chest Pain Stated Complaint: chest pain Time Seen by Provider: 03/09/18 13:51 Source: patient Limitations: no limitations Vital Signs Reviewed: Yes Nursing Notes Reviewed: Yes - History of Present Illness HPI Narrative: This is a 63 year-old female with history of HLD, IDDM, COPD, cirrhosis (with history of ascites, varices), and CAD/stent, who presents with left-sided chest pressure for the past 8 hours, nonradiating, worse with exertion. She also reports dyspnea, descibed as chronic, worse for the past 3 days, associated with worsening ascites. No fever, abdominal pain, vomiting, diarrhea, hematochezia, or melena. Pt complaint: chest pain Onset (ago): hour(s) (8) Duration: constant Onset: during rest Pain Location: left chest Severity: moderate Severity scale (1-10): 5 Quality: tightness (pressure) Pain Radiation: none Improves with: nothing Worsens with: exertion Associated symptoms: Reports: dyspnea, cough (chronic, nonproductive), leg swelling (bilateral edema, worse) - Related Data Home Medications Medication Instructions Recorded Confirmed LORazepam [Ativan] 0.5 mg PO DAILY PRN 12/31/15 03/09/18 Lactulose 30 ml PO DAILY PRN 12/31/15 03/09/18 Loratadine [Claritin] 10 mg PO DAILY 12/31/15 03/09/18 Nitroglycerin [Nitrostat] 0.4 mg SL Q5M PRN 12/31/15 03/09/18 Omeprazole [PriLOSEC] 40 mg PO BID 12/31/15 03/09/18 metFORMIN [Glucophage] 1,000 mg PO BIDWM 12/31/15 03/09/18 raNITIdine HCl [Zantac] 150 mg PO HS 12/31/15 03/09/18 traMADol [Ultram] 50 mg PO Q6HR PRN 12/31/15 03/09/18 Rosuvastatin Calcium [Crestor] 20 mg PO HS 09/11/16 03/09/18 Albuterol Sulfate [Ventolin Hfa] 2 puff IH Q4H PRN 01/31/17 03/09/18 Fluticasone Propionate Nasal 1 spray NS DAILY PRN 01/31/17 03/09/18 [Flonase] Fluticasone/Vilanterol [Breo 1 puff IH DAILY 01/31/17 03/09/18 Ellipta 100-25 Mcg INH] Gabapentin [Neurontin] 100 mg PO BID 01/31/17 03/09/18 Ipratropium/Albuterol Neb [Duoneb] 3 ml IH Q6HR PRN 01/31/17 03/09/18 Meclizine HCl [Verticalm] 25 mg PO DAILY PRN 01/31/17 03/09/18 Multivitamin [One Daily Essential] 1 tab PO DAILY 01/31/17 03/09/18 Bumetanide [Bumex] 1 mg PO DAILY 11/17/17 03/09/18 Insulin ASPART [NovoLOG] 0 unit SQ ACHS 11/17/17 03/09/18 Ondansetron [Zofran] 8 mg PO BID PRN 12/16/17 03/09/18 Zolpidem [Ambien] 5 mg PO HS PRN 12/16/17 03/09/18 Previous Rx's Medication Instructions Recorded Metoprolol [Lopressor] 100 mg PO BID #60 tablet 03/17/17 Isosorbide MONOnitrate (24 HR) 30 mg PO BID 30 Days #60 tab.er.24h 12/19/17 [Imdur] Spironolactone [Aldactone] 100 mg PO BID 30 Days #60 tablet 12/19/17 Allergies Allergy/AdvReac Type Severity Reaction Status Date / Time Hydroxychloroquine Allergy Hives Verified 03/09/18 11:50 [From Plaquenil] atorvastatin [From Lipitor] AdvReac Muscle Pain Verified 03/09/18 11:50 escitalopram [From Lexapro] AdvReac See Verified 03/09/18 11:50 Comments All systems ED: reviewed and negative except as stated. Constitutional: Denies: fever Cardiovascular: Reports: as per HPI, chest pain, dyspnea on exertion, edema ( worsening). Denies: palpitations, syncope Respiratory: Reports: cough (chronic), dyspnea Gastrointestinal: Denies: abdominal pain, nausea, vomiting, hematemesis, melena , hematochezia Genitourinary: Denies: dysuria Neurological: Denies: headache, weakness, numbness Chest Pain PMH - Past Medical History Medical history: Reports: cirrhosis, coronary artery disease, diabetes, fibromyalgia, GERD, hyperlipidemia, hypertension, liver disease, myocardial infarction, thyroid disease, other Surgical history: Reports: hysterectomy, other Psychiatric history: Reports: anxiety - Social History Smoking Status: Never smoker Alcohol use: Reports: none Drug use: Reports: none Physical Exam - General Limitations: no limitations General appearance: alert, in no apparent distress - Head Head exam: atraumatic, normocephalic - Eye Eye exam: Present: normal appearance, PERRL, EOMI - ENT ENT exam: normal exam - Neck Neck exam: Present: normal inspection - Respiratory Respiratory exam: Present: other (diminished blaterally). Absent: respiratory distress - Cardiovascular Cardiovascular exam: Present: regular rate, normal rhythm, normal heart sounds - Abdominal Exam Abdominal exam: Present: soft, Non-Tender, distention, rigidity. Absent: guarding, rebound - Extremities Exam Extremities exam: Present: pedal edema (bilateral). Absent: calf tenderness - Neurological Exam Neurological exam: Present: alert, oriented X3. Absent: motor sensory deficit - Psychiatric Psychiatric exam: Present: normal affect, normal mood - Skin Skin exam: Present: warm, dry, intact Course - Reevaluation(s) Reevaluation #1: Updated patient on test results. She is in agreement with plan. Time: 16:01 - Consultations Consultation #1: Reviewed case with Dr. Cook, and patient accepted for admission. Time: 16:01 Vital Signs Respiratory Rate 20 03/09/18 13:34 Temperature 98.4 F 03/09/18 13:53 Pulse Rate 73 03/09/18 14:42 Respiratory Rate 16 03/09/18 14:42 Blood Pressure 143/57 03/09/18 14:42 O2 Sat by Pulse Oximetry 96 03/09/18 14:42 Oxygen Delivery Oxygen Delivery Room Air Chest Pain - Lab Data Lab results reviewed: Yes I reviewed the patient's lab results. Result diagrams: 03/09/18 14:31 03/09/18 14:31 Lab Results 03/09/18 03/09/18 03/09/18 Range/Units 14:31 14:31 14:31 WBC 1.7 L (4.3-11.1) K/mcL RBC 3.68 L (3.82-4.97) M/mcL Hgb 11.2 L (11.5-15.4) g/dL Hct 33.7 L (35.3-44.9) % MCV 91.6 (83.0-100.0) fL MCH 30.4 (28.0-33.3) pg MCHC 33.2 (31.6-35.5) g/dL RDW 13.8 (11.5-14.5) % Plt Count 39 L (140-400) K/mcL MPV 11.3 (9.4-12.4) fL Immature Gran % 0.0 (0-4) % Seg Neutrophils % 64.2 % Lymphocytes % 23.1 % Monocytes % 9.2 % Eosinophils % 2.9 % Basophils % 0.6 % Neutrophils # 1.1 L (1.6-8.9) K/mcL Lymphocytes # 0.4 L (0.6-4.6) K/mcL Monocytes # 0.2 (0.0-1.3) K/mcL Eosinophils # 0.1 (0.0-0.6) K/mcL Basophils # 0.0 (0.0-0.2) K/mcL Nucleated RBCs/100 WBC 1.2 H (0) /100 WBC Platelet Estimate Decreased L (Normal) PT 12.8 H (9.4-12.1) Seconds INR 1.2 APTT 32.5 (26.0-36.0) Seconds Sodium (136-145) mEq/L Potassium (3.5-5.1) mEq/L Chloride (98-107) mEq/L Carbon Dioxide (23-29) mEq/L BUN (8-23) mg/dL Creatinine (0.60-1.20) mg/dL Est GFR ( Amer) (> 60) Est GFR (Non-Af Amer) (> 60) BUN/Creatinine Ratio (6-26) Glucose (70-105) mg/dL Calculated Osmolality (280-300) Calcium (8.6-10.3) mg/dL Troponin I (< 0.04) ng/mL B-Natriuretic Peptide 72 (Less than 100) pg/mL 03/09/ Range/Units 14:31 WBC (4.3-11.1) K/mcL RBC (3.82-4.97) M/mcL Hgb (11.5-15.4) g/dL Hct (35.3-44.9) % MCV (83.0-100.0) fL MCH (28.0-33.3) pg MCHC (31.6-35.5) g/dL RDW (11.5-14.5) % Plt Count (140-400) K/mcL MPV (9.4-12.4) fL Immature Gran % (0-4) % Seg Neutrophils % % Lymphocytes % % Monocytes % % Eosinophils % % Basophils % % Neutrophils # (1.6-8.9) K/mcL Lymphocytes # (0.6-4.6) K/mcL Monocytes # (0.0-1.3) K/mcL Eosinophils # (0.0-0.6) K/mcL Basophils # (0.0-0.2) K/mcL Nucleated RBCs/100 WBC (0) /100 WBC Platelet Estimate (Normal) PT (9.4-12.1) Seconds INR APTT (26.0-36.0) Seconds Sodium 140 (136-145) mEq/L Potassium 3.6 (3.5-5.1) mEq/L Chloride 105 (98-107) mEq/L Carbon Dioxide 27 (23-29) mEq/L BUN 11 (8-23) mg/dL Creatinine 0.62 (0.60-1.20) mg/dL Est GFR ( Amer) > 60 (> 60) Est GFR (Non-Af Amer) > 60 (> 60) BUN/Creatinine Ratio 18 (6-26) Glucose 230 H (70-105) mg/dL Calculated Osmolality 297 (280-300) Calcium 8.8 (8.6-10.3) mg/dL Troponin I < 0.03 (< 0.04) ng/mL B-Natriuretic Peptide (Less than 100) pg/mL - Radiology Data Radiology results reviewed: Yes I reviewed the patient's radiology results. XR/XR chest 1V portable IMPRESSION: No acute cardiopulmonary process. - EKG Data EKG attestation: Yes I reviewed and interpreted this EKG. EKG shows normal: sinus rhythm [place]/QRS: left axis deviation (slight) Interpretation: normal EKG
[2018-03-09] MEDS ORDERED: traMADol 50 MG TABLET PO PRN (16:37)
[2018-03-09] MEDS ORDERED: Naloxone 0.4 MG/ML INJ IVP PRN (16:37)
[2018-03-09] MEDS ORDERED: Ondansetron 4 MG/2 ML VIAL IVP PRN (16:37)
[2018-03-09] MEDS ORDERED: *HR* Promethazine 25 MG/ML VIAL IVP PRN (16:37)
[2018-03-09] MEDS ORDERED: Ipratropium/Albuterol Neb 3 ML IH PRN (16:42)
[2018-03-09] MEDS ORDERED: *HR* LORazepam 0.5 MG TABLET PO PRN (16:42)
[2018-03-09] MEDS ORDERED: Fluticasone Propionate Nasal 50 MCG/SPRAY BOTTLE NS PRN (16:42)
[2018-03-09] MEDS ORDERED: Dextrose Gel 15 GM/37.5 ML TUBE PO PRN ×2 (16:52)
[2018-03-09] MEDS ORDERED: *HR* Dextrose 50 % in Water (Syg) 50 ML SYRINGE IVP PRN (16:52)
[2018-03-09] MEDS ORDERED: D5% in Water 1,000 ML IVC PRN (16:52)
--- NOTE | 2018-03-09 16:54 | Internal Med History&Physical ---
Date of Encounter: 03/09/18 Time of Encounter: 16:10 Internal Medicine - H&P: HPI Chief complaint: CP and SOB Admitted From: Emergency Dept Plans for Post Hospital Care: Home History of present illness: Ms. Morgan is a 63 year old female with known past medical history of nonalcoholic SIMON cirrhosis of the liver, diabetes type II, fibromyalgia, Gerd, hyperlipidemia, hypertension, CAD and hypothyroidism who gets frequent paracentesis for her ascites presented emergency room today complaining about chest pain and difficulty breathing from last couple of days. She also mentioned increasing abdominal girth which is causing her more shortness of breath and dyspnea on exertion. Her chest pain located at left chest wall region non-radiating and more like tightness. She denied of any nausea vomiting. She denied of any Melena /bright red blood per rectum. She is following with the Willow Brambila who suggested to go for TIPS procedure if patient getting recurrent ascites Her EKG in the ED was NSR, no changes from prior EKG. Initial troponin negative and CXR negative for acute pulmonary process. Past Med Surg Social Fam HX - Past Medical History Medical history: cirrhosis, coronary artery disease, diabetes, fibromyalgia, GERD, hyperlipidemia, hypertension, liver disease, myocardial infarction, thyroid disease, other Additional medical history: estuardo spleen, sleep apnea, varisces, stent x1 Psychiatric history: anxiety - Past Surgical History Surgical History: hysterectomy, other Additional surgical history: paracentesis - Social History Smoking Status: Never smoker Smokeless Tobacco Status: No Alcohol use: none Drug use: none - Family History Mother Living Status: Hx Family Cardiac Disorders: Yes (CAD) Hx Family Respiratory Disorders: Yes Father Living Status: Hx Family Cardiac Disorders: Yes Internal Medicine - H&P: Meds LORazepam [Ativan] 0.5 mg PO DAILY PRN 12/31/15 [History] Lactulose 30 ml PO DAILY PRN 12/31/15 [History] Loratadine [Claritin] 10 mg PO DAILY 12/31/15 [History] Nitroglycerin [Nitrostat] 0.4 mg SL Q5M PRN 12/31/15 [History] Omeprazole [PriLOSEC] 40 mg PO BID 12/31/15 [History] metFORMIN [Glucophage] 1,000 mg PO BIDWM 12/31/15 [History] raNITIdine HCl [Zantac] 150 mg PO HS 12/31/15 [History] traMADol [Ultram] 50 mg PO Q6HR PRN 12/31/15 [History] Rosuvastatin Calcium [Crestor] 20 mg PO HS 09/11/16 [History] Albuterol Sulfate [Ventolin Hfa] 2 puff IH Q4H PRN 01/31/17 [History] Fluticasone Propionate Nasal [Flonase] 1 spray NS DAILY PRN 01/31/17 [History] Fluticasone/Vilanterol [Breo Ellipta 100-25 Mcg INH] 1 puff IH DAILY 01/31/17 [ History] Gabapentin [Neurontin] 100 mg PO BID 01/31/17 [History] Ipratropium/Albuterol Neb [Duoneb] 3 ml IH Q6HR PRN 01/31/17 [History] Meclizine HCl [Verticalm] 25 mg PO DAILY PRN 01/31/17 [History] Multivitamin [One Daily Essential] 1 tab PO DAILY 01/31/17 [History] Metoprolol [Lopressor] 100 mg PO BID #60 tablet 03/17/17 [Rx] Bumetanide [Bumex] 1 mg PO DAILY 11/17/17 [History] Insulin ASPART [NovoLOG] 0 unit SQ ACHS 11/17/17 [History] Ondansetron [Zofran] 8 mg PO BID PRN 12/16/17 [History] Zolpidem [Ambien] 5 mg PO HS PRN 12/16/17 [History] Spironolactone [Aldactone] 100 mg PO BID 30 Days #60 tablet 12/19/17 [Rx] Insulin Glargine,Hum.rec.anlog [Basaglar Kwikpen U-100] 60 unit SQ BID 03/09/18 [History] Isosorbide MONOnitrate (24 HR) [Imdur] 30 mg PO DAILY 03/09/18 [History] 3 Allergy/AdvReac Type Severity Reaction Status Date / Time Hydroxychloroquine Allergy Hives Verified 03/09/18 11:50 [From Plaquenil] atorvastatin [From Lipitor] AdvReac Muscle Pain Verified 03/09/18 11:50 escitalopram [From Lexapro] AdvReac See Verified 03/09/18 11:50 Comments All Systems PM: A 10-system review of systems was performed and is negative for pertinent findings except as documented above in the HPI. Review of systems: All the systems are reviewed everything is benign except the systems and symptoms I mentioned in the history of present illness - Constitutional Vitals: Temp Pulse Resp BP Pulse Ox 98 F 73 18 139/74 96 03/09/18 16:29 03/09/18 14:42 03/09/18 16:29 03/09/18 16:29 03/09/18 14:42 General appearance: Present: mild distress, A&O X 3, answers questions appropriately - Head Head exam: Present: atraumatic, normal inspection - Neck Neck exam general surgery: Present: supple - Respiratory Respiratory exam: Present: decreased breath sounds, rales, respiratory distress. Absent: rhonchi, wheezes - Cardiovascular Cardiovascular exam: Present: RRR, +S1, +S2. Absent: tachycardia - GI/Abdominal GI/Abdominal exam: Present: distended, normal bowel sounds, soft, no peritoneal signs. Absent: rebound, rigid, tenderness Additional comments: Fluid thrill + Ascities + - Extremities Exam Extremities exam: Absent: calf tenderness, pedal edema, tenderness - Back Exam Back exam: Absent: CVA tenderness (L), CVA tenderness (R) - Neurological Exam Neurological exam: Present: alert, oriented X3 - Psychiatric Psychiatric exam: Present: normal affect, normal mood Internal Med - H&P Results - Labs CBC & Chem 7: 03/09/18 14:31 03/09/18 14:31 - Assessment and plan (1) Chest pain Current Visit: Yes Status: Acute Assessment and plan: Will admit the pt into Tele for observation Will place pt on cardiac rehabilitation specialist check serial troponin so far negative troponin EKG reviewed no acute ischemic changes noticed Pt does have h/o GI bleed with varicose veins , once GI clears will give her ASA Her CP seems to be atypical..mostly due to Worsening Ascities / Fluid over load Will check FLP in AM Qualifiers: Chest pain type: unspecified Qualified Code(s): R07.9 - Chest pain, unspecified (2) Cirrhosis of liver with ascites Current Visit: Yes Status: Acute Assessment and plan: Worsening ascites ordered for U/S guided paracentesis by IR Also consulted GI regarding TIPA procedure Also started her on Lasix 40mg IV BID + Aldactone Qualifiers: Hepatic cirrhosis type: unspecified hepatic cirrhosis Qualified Code(s): K74.60 - Unspecified cirrhosis of liver; R18.8 - Other ascites (3) SIMON (nonalcoholic steatohepatitis) Current Visit: No Status: Acute (4) Pancytopenia Current Visit: No Status: Acute Assessment and plan: Due to SIMON Cirrhosis of liver Cont close monitoring (5) T2DM (type 2 diabetes mellitus) Current Visit: No Status: Chronic Assessment and plan: Placed her on ISS ADA diet - Pureed Qualifiers: Diabetes mellitus half-way insulin use: with intermediate frame tender use Diabetes mellitus complication status: with hyperglycemia Qualified Code(s): E11.65 - Type 2 diabetes mellitus with hyperglycemia; Z79.4 - computer terminal operator (current) use of insulin; Z79.4 - computer terminal operator (current) use of insulin; Z79.4 - computer terminal operator (current ) use of insulin; Z79.4 - skilled nursing (current) use of insulin (6) Thrombocytopenia Current Visit: No Status: Chronic Assessment and plan: Due to Cirrhosis of liver stable - Time Spent With Patient Total time spent is greater than 50% in coordination of care (as documented) at patient's floor/unit and/or counseling patient:
[2018-03-09] MEDS: Furosemide 40 MG/4 ML VIAL IVP SCH (18:16)
[2018-03-09 18:27] LABS: Estimated Average Glucose 272 mg/dl; Hemoglobin A1C 11.1 %
[2018-03-09] MEDS: Nitroglycerin 0.4 MG TAB.SUBL SL PRN ×3 (21:00→21:22)
[2018-03-09] MEDS ORDERED: Famotidine 20 MG TABLET PO SCH (21:00)
[2018-03-09] MEDS: Metoprolol 100 MG TABLET PO SCH (21:43)
[2018-03-09] MEDS: Gabapentin 100 MG CAPSULE PO SCH (21:43)
[2018-03-09] MEDS: Insulin LISPRO 300 UNITS/3 ML VIAL SQ SCH (21:43)
[2018-03-09] MEDS: *HR* OxyCODONE Immed Rel 5 MG TABLET PO PRN (21:47)
[2018-03-10 03:48] LABS: Basophils % 0.6 %; Red Cell Distribution Width 13.9 % (11.5-14.5)
[2018-03-10 03:49] LABS: Eosinophils # 0.1 K/mcL (0.0-0.6); Eosinophils % 3.1 %; Hematocrit 34.3 % (35.3-44.9); Hemoglobin 11.3 g/dL (11.5-15.4); Immature Granulocytes % 0.6 % (0-4); Lymphocytes # 0.5 K/mcL (0.6-4.6); Lymphocytes % 32.5 %; Mean Corpuscular HGB Conc 32.9 g/dL (31.6-35.5); Mean Corpuscular Hemoglobin 29.7 pg (28.0-33.3); Mean Platelet Volume 11.9 fL (9.4-12.4); Monocytes # 0.2 K/mcL (0.0-1.3); Monocytes % 9.4 %; Neutrophils # 0.9 K/mcL (1.6-8.9); Red Blood Count 3.81 M/mcL (3.82-4.97); Segmented Neutrophils % 53.8 %
[2018-03-10 03:58] LABS: Platelet Count 37 K/mcL (140-400)
[2018-03-10 04:05] LABS: Alanine Aminotransferase 16 Units/L (7-52); Albumin/Globulin Ratio 1.3 (1.1-2.2); Alkaline Phosphatase 96 Units/L (34-104); Aspartate Amino Transferase 28 Units/L (13-39); BUN/Creatinine Ratio 21 (6-26); Bilirubin,Total 1.2 mg/dL (0.3-1.0); Blood Urea Nitrogen 12 mg/dL (8-23); Calcium 8.4 mg/dL (8.6-10.3); Carbon Dioxide 25 mEq/L (23-29); Chloride 105 mEq/L (98-107); Chol/HDL Ratio 4.1 (0-4.9); Cholesterol 144 mg/dL (< 200); Globulin 2.4 g/dL (2.4-3.5); Glucose 322 mg/dL (70-105); HDL Cholesterol 35 mg/dL (40-59); LDL Cholesterol,Calculated 80 mg/dL (0-99); Magnesium 1.7 mg/dL (1.6-2.6); Osmolality,Calculated 294 (280-300); Sodium 136 mEq/L (136-145); Total Protein 5.4 g/dL (6.4-8.9); Triglycerides 147 mg/dL (< 150); eGFR For African Americans > 60 (> 60); eGFR For Non-African Americans > 60 (> 60)
[2018-03-10 04:45] LABS: Platelet Estimate Decreased (Normal)
[2018-03-10] MEDS ORDERED: Albuterol 2.5 MG/3 ML NEBULIZER IH PRN (07:26)
[2018-03-10] MEDS: Budesonide/Formoterol 160/4.5 MDI IH SCH ×2 (07:51→21:47)
[2018-03-10] MEDS: Insulin LISPRO 300 UNITS/3 ML VIAL SQ SCH ×4 (08:39→20:12)
[2018-03-10] MEDS: Furosemide 40 MG/4 ML VIAL IVP SCH ×2 (08:39→16:05)
[2018-03-10] MEDS: Loratadine 10 MG TABLET PO SCH (08:41)
[2018-03-10] MEDS: Gabapentin 100 MG CAPSULE PO SCH ×2 (08:41→20:12)
[2018-03-10] MEDS: Isosorbide MONOnitrate (24 HR) 30 MG TAB.ER.24H PO SCH (08:41)
[2018-03-10] MEDS: Multivit/Ca/Min/Fe/FA 1 TAB TABLET PO SCH (08:41)
[2018-03-10] MEDS: Metoprolol 100 MG TABLET PO SCH ×2 (08:41→20:12)
--- NOTE | 2018-03-10 10:57 | Gastroenterology Consult Note ---
<Robles Soria - Last Filed: 03/10/18 10:55> Date of Encounter: 03/10/18 Time of Encounter: 09:50 - Assessment and plan (1) Ascites Current Visit: No Status: Acute Assessment and plan: Continue Lasix and Aldactone. Plan for paracentesis today. Follow up with Dr. Brambila in 2 weeks to discuss TIPS. Qualifiers: Ascites type: other type Qualified Code(s): R18.8 - Other ascites (2) Cirrhosis Current Visit: No Status: Chronic Assessment and plan: Secondary to SIMON. Joshua-Arguelles class B, MELD-Na 12. Continue Lasix and Aldactone. Complete paracentesis and send fluid for cell count and total protein. Qualifiers: Hepatic cirrhosis type: other cirrhosis Qualified Code(s): K74.69 - Other cirrhosis of liver (3) SIMON (nonalcoholic steatohepatitis) Current Visit: No Status: Chronic (4) Pancytopenia Current Visit: No Status: Chronic Assessment and plan: Secondary to cirrhosis. - Time Spent With Patient Total time spent is greater than 50% in coordination of care (as documented) at patient's floor/unit and/or counseling patient: GI History of Present Illness - Data of Consult Patient: known to practice within the last 3 years Consult date: 03/10/18 Requesting Physician: Bert Cook MD - Consult Narrative Reason for consult: Ascites History of present illness: Ms. Morgan is a 63 year old female with PMHx of cirrhosis secondary to SIMON, diabetes type II, fibromyalgia, Gerd, hyperlipidemia, hypertension, CAD and hypothyroidism who gets frequent paracentesis for her ascites presented emergency room today complaining about chest pain and difficulty breathing from last couple of days. She also mentioned increasing abdominal girth which is causing her more shortness of breath and dyspnea on exertion. She follows with Dr. Brambila who recommended TIPS procedure for recurrent ascites. Procedures: EGD 02/04/2017 Dr. Ny: Grade I-II varices lower third of esophagus , portal hypertensive gastropathy. EGD January 2017 at [facility] NSAIDs: None Anticoagulation: None Past Med Surg Social Fam HX - Past Medical History Medical history: cirrhosis, coronary artery disease, diabetes, fibromyalgia, GERD, hyperlipidemia, hypertension, liver disease, myocardial infarction, thyroid disease, other Additional medical history: estuardo spleen, sleep apnea, varisces, stent x1 Psychiatric history: anxiety, depression, previous psychiatric hospitalization - Past Surgical History Surgical History: hysterectomy, other Additional surgical history: paracentesis - Social History Smoking Status: 2nd Hand Smoke Exposure Smokeless Tobacco Status: No Alcohol use: none Drug use: none - Family History Mother Living Status: Hx Family Cardiac Disorders: Yes (CAD) Hx Family Respiratory Disorders: Yes Hx Family Psychosocial Disorders: Yes Father Living Status: Hx Family Cardiac Disorders: Yes Hx Family Endocrine Disorder: Yes - Gastrointestinal Gastrointestinal: Present: as per HPI - Constitutional Constitutional: as per HPI - EENT Eyes: as per HPI Ears: Present: as per HPI Nose, mouth and throat: Present: as per HPI - Cardiovascular Cardiovascular ROS: Present: as per HPI - Respiratory Respiratory IM: Present: as per HPI - Genitourinary Genitourinary: Absent: change in color, Urinary frequency - Neurological ROS Neurological GI: Present: as per HPI - Hematologic/Lymphatic Hematologic/Lymphatic pediatric: Present: as per HPI - Musculoskeletal Musculoskeletal ROS GI: Present: as per HPI - Integumentary Integumentary GI: Present: as per HPI - Psychiatric ROS Psychiatric GI: Present: as per HPI - Endocrine Endocrine IM: Present: as per HPI - Constitutional Vitals: Temp Pulse Resp BP Pulse Ox 97.7 F 64 20 115/71 97 03/10/18 07:04 03/10/18 07:04 03/10/18 07:51 03/10/18 07:04 03/10/18 07:51 General appearance: Present: cooperative, A&O X 3, no acute distress, answers questions appropriately - Head Head exam: Present: atraumatic, normocephalic - Eye Eye exam: Present: normal appearance, sclera anicteric - ENT ENT exam: Present: mucous membranes moist - Neck Neck exam general surgery: Present: normal inspection, trachea midline - Respiratory Respiratory exam: Present: decreased breath sounds, rhonchi - Cardiovascular Cardiovascular exam: Present: RRR, +S1, +S2 - GI/Abdominal GI/Abdominal exam: Present: distended, firm, soft, no peritoneal signs. Absent : guarding, tenderness - Expanded GI/Abdominal Exam GI/Abdominal exam expanded: Present: ascites - Rectal Rectal exam: Present: deferred - Extremities Exam Extremities exam: Present: warm - Neurological Exam Neurological exam: Present: no focal deficits - Psychiatric Psychiatric exam: Present: normal affect, normal mood - Skin Skin exam: Present: dry, intact, normal color, warm Results - Labs CBC & Chem 7: 03/10/18 03:37 03/10/18 03:37 Labs: Last Result Calcium 8.4 mg/dL (8.6-10.3) L 03/10/18 03:37 Troponin I < 0.03 ng/mL (< 0.04) 03/10/18 03:37 Triglycerides 147 mg/dL (< 150) 03/10/18 03:37 Entire Visit Hgb 11.3 g/dL (11.5-15.4) L 03/10/18 03:37 Hct 34.3 % (35.3-44.9) L 03/10/18 03:37 PT 12.8 Seconds (9.4-12.1) H 03/09/18 14:31 Total Bilirubin 1.2 mg/dL (0.3-1.0) H 03/10/18 03:37 AST 28 Units/L (13-39) 03/10/18 03:37 ALT 16 Units/L (7-52) 03/10/18 03:37 - ABG ABG results: PT/INR, D-dimer PT 12.8 Seconds (9.4-12.1) H 03/09/18 14:31 Consult Discharge Plan - Plan Referrals: Paul Cantu [employer] [Primary Care Provider] - <Charli Ny - Last Filed: 03/10/18 13:21> Date of Encounter: 03/10/18 - Time Spent With Patient Total time spent is greater than 50% in coordination of care (as documented) at patient's floor/unit and/or counseling patient: GI History of Present Illness - Data of Consult Requesting Physician: Bert Cook MD - Consult Narrative History of present illness: Ms. Morgan is a 63 year old female - Constitutional Vitals: Temp Pulse Resp BP Pulse Ox 97.9 F 63 16 105/65 100 03/10/18 12:00 03/10/18 12:00 03/10/18 12:00 03/10/18 12:00 03/10/18 12:00 Results - Labs CBC & Chem 7: 03/10/18 03:37 03/10/18 03:37 Labs: Last Result Calcium 8.4 mg/dL (8.6-10.3) L 03/10/18 03:37 Troponin I < 0.03 ng/mL (< 0.04) 03/10/18 03:37 Triglycerides 147 mg/dL (< 150) 03/10/18 03:37 Entire Visit Hgb 11.3 g/dL (11.5-15.4) L 03/10/18 03:37 Hct 34.3 % (35.3-44.9) L 03/10/18 03:37 PT 12.8 Seconds (9.4-12.1) H 03/09/18 14:31 Total Bilirubin 1.2 mg/dL (0.3-1.0) H 03/10/18 03:37 AST 28 Units/L (13-39) 03/10/18 03:37 ALT 16 Units/L (7-52) 03/10/18 03:37 - ABG ABG results: PT/INR, D-dimer PT 12.8 Seconds (9.4-12.1) H 03/09/18 14:31 - Attending Attestation I have personally performed a face to face evaluation on this patient. I have reviewed and agree with the care plan. History and Exam by me shows: Patient with cirrhosis with refractory ascites. Recommendation: Gradually increase the dose of Lasix to 160 mg total and Aldactone 400 mg total as tolerated. If still ascites cannot be controlled or if cannot tolerate this much diuretics then she will need the TIPS
--- NOTE | 2018-03-10 15:44 | Internal Med Progress Note ---
Date of Encounter: 03/10/18 Time of Encounter: 15:40 - Assessment and plan (1) Thrombocytopenia Current Visit: Yes Status: Chronic Assessment and plan: Due to Cirrhosis of liver stable Transfuse for PLT <10,000 (2) T2DM (type 2 diabetes mellitus) Current Visit: Yes Status: Chronic Assessment and plan: Placed her on ISS ADA diet - Pureed Qualifiers: Diabetes mellitus shelter insulin use: with shelter use Diabetes mellitus complication status: with hyperglycemia Qualified Code(s): E11.65 - Type 2 diabetes mellitus with hyperglycemia; Z79.4 - nursing home (current) use of insulin; Z79.4 - nursing home (current) use of insulin; Z79.4 - nursing home (current ) use of insulin; Z79.4 - director long term care (current) use of insulin (3) Chest pain Current Visit: Yes Status: Acute Assessment and plan: Atypical Possibly due to severely distended abdomen and stress of breathing Troponin negative x 3 EKG is unremarkable for ischemia Known severe small vessel disease on [facility] 03/2016--no intervention at that time. PCI in 2012. Negative stress test 01/2017. High risk of complication for [facility] given pancytopenia and shelter issues with bleeding with recurrent esophageal varices. Continue BB, Statin, Imdur, no ASA due to low PLT She follows with cardiology out-patient I will consider cardiology consult if patient continues to experience chest pressure after drainage of her ascites Qualifiers: Chest pain type: unspecified Qualified Code(s): R07.9 - Chest pain, unspecified (4) SIMON (nonalcoholic steatohepatitis) Current Visit: Yes Status: Chronic Assessment and plan: Hx of DM leading to SIMON progressing to cirrhosis complicated by recurrent ascites requiring paracentesis as well as esophageal varices sp banding x 3, pancytopenia 2/2 cirrhosis with Plt count <50. Continue diuretics and home meds (5) Pancytopenia Current Visit: Yes Status: Chronic Assessment and plan: Due to SIMON Cirrhosis of liver Cont close monitoring (6) Cirrhosis of liver with ascites Current Visit: Yes Status: Acute Assessment and plan: Continue lasix and aldactone, for paracentensis by IR Send work up to rule out SBP Qualifiers: Hepatic cirrhosis type: unspecified hepatic cirrhosis Qualified Code(s): K74.60 - Unspecified cirrhosis of liver; R18.8 - Other ascites - Time Spent With Patient Total time spent is greater than 50% in coordination of care (as documented) at patient's floor/unit and/or counseling patient: - Subjective Interval history: Seen and examined at bedside 63 F with PMH of CAD s/p [facility] in 2016 with severe small vessel disease, SIMON, Decompensated liver cirrhosis, Hypothyroidism, DM2, presented with difficulty breathing and chest pressure She reports being chest pain free at my time of evaluation, but reports chest pressure She also has hugely distended abdomen from ascites-pending drainage GI consulted in this admission due to patient being planned for TIPS Troponin negative X3, EKG unremarkable - Constitutional Vitals: Temp Pulse Resp BP Pulse Ox 97.9 F 68 16 106/67 98 03/10/18 15:24 03/10/18 15:24 03/10/18 15:24 03/10/18 15:24 03/10/18 15:24 General appearance: Present: A&O X 3, morbidly obese, pleasant, no acute distress, answers questions appropriately - Head Head exam: Present: atraumatic, normocephalic - Eye Eye exam: Present: PERRL, conjuntiva pink, sclera anicteric Pupils: Present: PERRL - Neck Neck exam general surgery: Present: supple, trachea midline. Absent: lymphadenopathy - Respiratory Respiratory exam: Present: CTAB. Absent: accessory muscle use, rales, rhonchi, wheezes - Cardiovascular Cardiovascular exam: Present: RRR, +S1, +S2. Absent: diastolic murmur, gallop, rubs, systolic murmur - GI/Abdominal GI/Abdominal exam: Present: distended (ascites, fluid thrill), normal bowel sounds, soft, no peritoneal signs. Absent: rebound, rigid, tenderness - Extremities Exam Extremities exam: Present: pedal edema - Neurological Exam Neurological exam: Present: alert, CN II-XII intact, oriented X3, no focal deficits. Absent: pronater drift, facial droop, speech deficit - Skin Skin exam: Present: dry, intact Internal Medicine: Result - Labs CBC & Chem 7: 03/10/18 03:37 03/10/18 03:37 Labs: Short CBC 03/10/18 Range/Units 03:37 WBC 1.6 L (4.3-11.1) K/mcL Hgb 11.3 L (11.5-15.4) g/dL Hct 34.3 L (35.3-44.9) % Plt Count 37 L (140-400) K/mcL Neutrophils # 0.9 L (1.6-8.9) K/mcL BMP 03/10/18 03:37 Sodium 136 Potassium 4.0 Chloride 105 Carbon Dioxide 25 BUN 12 Creatinine 0.57 L Glucose 322 H Calcium 8.4 L Cardiac Enzymes 03/09/18 03/10/18 Range/Units 21:00 03:37 Troponin I < 0.03 < 0.03 (< 0.04) ng/mL Liver Function 03/10/18 Range/Units 03:37 Total Bilirubin 1.2 H (0.3-1.0) mg/dL AST 28 (13-39) Units/L ALT 16 (7-52) Units/L Alkaline Phosphatase 96 (34-104) Units/L Albumin 3.0 L (3.5-5.7) g/dL - ABG Interpretation ABG results: PT/INR, D-dimer PT 12.8 Seconds (9.4-12.1) H 03/09/18 14:31 Consult Discharge Plan - Plan Referrals: Paul Cantu, DATA INTEGRATION DEVELOPER [Primary Care Provider] -
--- NOTE | 2018-03-10 18:22 | IR Procedure Note ---
Date of procedure: 03/10/18 Consent Obtained: Written consent Timeout: Correct patient and procedure verified, Correct site verified, Time out performed, Skin prep completed Local anesthetic: Lidocaine 1% Indications: Ascites Procedure Performed: Paracentesis Was there an apartment community assistant manager present: No Site/Technique: LLQ access Results/Findings: Total volume of 6.3L Estimated blood loss (cc): 0 Complications: None; Tolerated procedure well Post Procedure Treatment Plan: Monitoring in pts room Specimen: N./a
[2018-03-10] MEDS: *HR* OxyCODONE Immed Rel 5 MG TABLET PO PRN (20:11)
[2018-03-10] MEDS: Insulin DETEMIR 100 UNIT/ML X5UNITS SQ SCH (20:14)
[2018-03-11 05:09] LABS: Red Cell Distribution Width 13.6 % (11.5-14.5)
[2018-03-11 05:10] LABS: Basophils % 0.6 %; Eosinophils # 0.1 K/mcL (0.0-0.6); Eosinophils % 3.7 %; Hematocrit 33.7 % (35.3-44.9); Hemoglobin 11.3 g/dL (11.5-15.4); Immature Granulocytes % 0.6 % (0-4); Lymphocytes # 0.4 K/mcL (0.6-4.6); Lymphocytes % 23.6 %; Mean Corpuscular HGB Conc 33.5 g/dL (31.6-35.5); Mean Corpuscular Hemoglobin 29.9 pg (28.0-33.3); Mean Corpuscular Volume 89.2 fL (83.0-100.0); Mean Platelet Volume 11.9 fL (9.4-12.4); Monocytes # 0.2 K/mcL (0.0-1.3); Monocytes % 9.3 %; Red Blood Count 3.78 M/mcL (3.82-4.97); Segmented Neutrophils % 62.2 %
[2018-03-11 05:11] LABS: Platelet Count 40 K/mcL (140-400)
[2018-03-11 05:22] LABS: BUN/Creatinine Ratio 22 (6-26); Blood Urea Nitrogen 13 mg/dL (8-23); Calcium 8.5 mg/dL (8.6-10.3); Carbon Dioxide 29 mEq/L (23-29); Chloride 102 mEq/L (98-107); Glucose 257 mg/dL (70-105); Osmolality,Calculated 293 (280-300); Potassium 4.1 mEq/L (3.5-5.1); Sodium 137 mEq/L (136-145); eGFR For African Americans > 60 (> 60); eGFR For Non-African Americans > 60 (> 60)
[2018-03-11] MEDS: Gabapentin 100 MG CAPSULE PO SCH ×2 (08:16→20:54)
[2018-03-11] MEDS: Isosorbide MONOnitrate (24 HR) 30 MG TAB.ER.24H PO SCH (08:17)
[2018-03-11] MEDS: Metoprolol 100 MG TABLET PO SCH ×2 (08:17→20:54)
[2018-03-11] MEDS: Loratadine 10 MG TABLET PO SCH (08:17)
[2018-03-11] MEDS: Insulin LISPRO 300 UNITS/3 ML VIAL SQ SCH ×4 (08:17→20:55)
[2018-03-11] MEDS: Furosemide 40 MG/4 ML VIAL IVP SCH ×2 (08:17→17:07)
[2018-03-11] MEDS: Insulin DETEMIR 100 UNIT/ML X5UNITS SQ SCH ×2 (08:17→21:02)
[2018-03-11] MEDS: Multivit/Ca/Min/Fe/FA 1 TAB TABLET PO SCH (08:17)
[2018-03-11] MEDS: Budesonide/Formoterol 160/4.5 MDI IH SCH ×2 (10:31→20:46)
--- NOTE | 2018-03-11 11:04 | Internal Med Progress Note ---
Date of Encounter: 03/11/18 Time of Encounter: 13:07 - Assessment and plan (1) Thrombocytopenia Current Visit: Yes Status: Chronic Assessment and plan: Due to Cirrhosis of liver stable Transfuse for PLT <10,000 (2) T2DM (type 2 diabetes mellitus) Current Visit: Yes Status: Chronic Assessment and plan: Placed her on ISS ADA diet - Pureed Qualifiers: Diabetes mellitus nursing home insulin use: with nursing home use Diabetes mellitus complication status: with hyperglycemia Qualified Code(s): E11.65 - Type 2 diabetes mellitus with hyperglycemia; Z79.4 - nursing home (current) use of insulin; Z79.4 - nursing home (current) use of insulin; Z79.4 - nursing home (current ) use of insulin; Z79.4 - 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 03/2016--no intervention at that time. PCI in 2012. Negative stress test 01/2017. High risk of complication for [facility] given pancytopenia and nursing home issues with bleeding with recurrent esophageal varices. Continue BB, Statin, Imdur, no ASA due to low PLT She follows with cardiology out-patient ECHO ordered Cardio eval requested Qualifiers: Chest pain type: unspecified Qualified Code(s): R07.9 - Chest pain, unspecified (4) SIMON (nonalcoholic steatohepatitis) Current Visit: Yes Status: Chronic Assessment and plan: Hx of DM leading to SIMON progressing to cirrhosis complicated by recurrent ascites requiring paracentesis as well as esophageal varices sp banding x 3, pancytopenia 2/2 cirrhosis with Plt count <50. Continue diuretics and home meds (5) Pancytopenia Current Visit: Yes Status: Chronic Assessment and plan: Due to SIMON Cirrhosis of liver Cont close monitoring (6) Cirrhosis of liver with ascites Current Visit: Yes Status: Acute Assessment and plan: Continue lasix and aldactone, s/p paracentensis by IR 6.3 L removed Will give 25g of albumin Continue diuretics Qualifiers: Hepatic cirrhosis type: unspecified hepatic cirrhosis Qualified Code(s): K74.60 - Unspecified cirrhosis of liver; R18.8 - Other ascites - Time Spent With Patient Total time spent is greater than 50% in coordination of care (as documented) at patient's floor/unit and/or counseling patient: - Subjective Interval history: Seen and examined at bedside 63 F with PMH of CAD s/p [facility] in 2016 with severe small vessel disease, SIMON, Decompensated liver cirrhosis, Hypothyroidism, DM2, presented with difficulty breathing and chest pressure She reports being chest pain free at my time of evaluation, but reports chest pressure She is s/p paracentensis, 6.5L removed, will give albumin GI consulted in this admission due to patient being planned for TIPS, recommendations noted Troponin negative X3, EKG unremarkable She reports feeling some improvement in chest pressure and SOB She is requesting Cardio eval We will obtain limited ECHO to r/o pericardial effusion - Constitutional Vitals: Temp Pulse Resp BP Pulse Ox 97.6 F 65 17 103/66 98 03/11/18 07:10 03/11/18 07:10 03/11/18 10:34 03/11/18 07:10 03/11/18 10:34 General appearance: Present: A&O X 3, morbidly obese, pleasant, no acute distress, answers questions appropriately - Head Head exam: Present: atraumatic, normocephalic - Eye Eye exam: Present: PERRL, conjuntiva pink, sclera anicteric Pupils: Present: PERRL - Neck Neck exam general surgery: Present: supple, trachea midline. Absent: lymphadenopathy - Respiratory Respiratory exam: Present: CTAB. Absent: accessory muscle use, rales, rhonchi, wheezes - Cardiovascular Cardiovascular exam: Present: RRR, +S1, +S2. Absent: diastolic murmur, gallop, rubs, systolic murmur - GI/Abdominal GI/Abdominal exam: Present: distended, normal bowel sounds, soft, no peritoneal signs. Absent: tenderness - Extremities Exam Extremities exam: Present: pedal edema, warm, radial pulses palpable and symmetrical. Absent: calf tenderness, cyanotic - Neurological Exam Neurological exam: Present: alert, CN II-XII intact, oriented X3, no focal deficits. Absent: pronater drift, facial droop, speech deficit - Skin Skin exam: Present: dry, intact Internal Medicine: Result - Labs CBC & Chem 7: 03/11/18 04:41 03/11/18 04:41 Labs: Short CBC 03/11/18 Range/Units 04:41 WBC 1.6 L (4.3-11.1) K/mcL Hgb 11.3 L (11.5-15.4) g/dL Hct 33.7 L (35.3-44.9) % Plt Count 40 L (140-400) K/mcL Neutrophils # 1.0 L (1.6-8.9) K/mcL BMP 03/11/18 04:41 Sodium 137 Potassium 4.1 Chloride 102 Carbon Dioxide 29 BUN 13 Creatinine 0.60 Glucose 257 H Calcium 8.5 L - ABG Interpretation ABG results: PT/INR, D-dimer PT 12.8 Seconds (9.4-12.1) H 03/09/18 14:31 - Impressions Impressions Paracentesis Ultrasound 03/10/18 06:48 IMPRESSION: Successful ultrasound guided paracentesis. D/ / Erik Garcia MD / Erik Garcia MD Interpreting Provider: Erik Garcia MD Consult Discharge Plan - Plan Referrals: Paul Cantu CNP [Primary Care Provider] -
[2018-03-11] MEDS ORDERED: Albumin 25% 25gram/100mL 25 GM/100 ML IV.SOLN IVPB ONE (13:09)
[2018-03-11] MEDS: Nitroglycerin 0.4 MG TAB.SUBL SL PRN ×3 (14:04→14:27)
[2018-03-11] MEDS ORDERED: MORPHINE SUL Oral CONC 10 MG/0.5 ML ORAL.SYG SL ONE (16:55)
[2018-03-12 05:07] LABS: Basophils % 0.7 %; Immature Granulocytes % 0.7 % (0-4); Mean Platelet Volume 11.3 fL (9.4-12.4); Red Cell Distribution Width 13.6 % (11.5-14.5)
[2018-03-12 05:09] LABS: Eosinophils % 1.4 %; Hematocrit 33.3 % (35.3-44.9); Hemoglobin 10.8 g/dL (11.5-15.4); Lymphocytes # 0.4 K/mcL (0.6-4.6); Lymphocytes % 26.2 %; Mean Corpuscular HGB Conc 32.4 g/dL (31.6-35.5); Mean Corpuscular Hemoglobin 29.4 pg (28.0-33.3); Mean Corpuscular Volume 90.7 fL (83.0-100.0); Monocytes % 9.7 %; Neutrophils # 0.9 K/mcL (1.6-8.9); Red Blood Count 3.67 M/mcL (3.82-4.97); Segmented Neutrophils % 61.3 %
[2018-03-12 05:16] LABS: Monocytes # 0.2 K/mcL (0.0-1.3); Platelet Count 41 K/mcL (140-400)
[2018-03-12 05:24] LABS: Alanine Aminotransferase 13 Units/L (7-52); Albumin 3.2 g/dL (3.5-5.7); Albumin/Globulin Ratio 1.5 (1.1-2.2); Alkaline Phosphatase 87 Units/L (34-104); Aspartate Amino Transferase 23 Units/L (13-39); BUN/Creatinine Ratio 22 (6-26); Bilirubin,Total 0.8 mg/dL (0.3-1.0); Blood Urea Nitrogen 15 mg/dL (8-23); Calcium 8.7 mg/dL (8.6-10.3); Carbon Dioxide 34 mEq/L (23-29); Chloride 101 mEq/L (98-107); Globulin 2.2 g/dL (2.4-3.5); Glucose 319 mg/dL (70-105); Osmolality,Calculated 301 (280-300); Potassium 3.8 mEq/L (3.5-5.1); Sodium 139 mEq/L (136-145); Total Protein 5.4 g/dL (6.4-8.9); eGFR For African Americans > 60 (> 60); eGFR For Non-African Americans > 60 (> 60)
[2018-03-12 05:55] LABS: Platelet Estimate Decreased (Normal)
[2018-03-12] MEDS: Budesonide/Formoterol 160/4.5 MDI IH SCH (08:04)
[2018-03-12] MEDS: Gabapentin 100 MG CAPSULE PO SCH (08:41)
[2018-03-12] MEDS: Furosemide 40 MG/4 ML VIAL IVP SCH (08:42)
[2018-03-12] MEDS: Isosorbide MONOnitrate (24 HR) 30 MG TAB.ER.24H PO SCH (08:42)
[2018-03-12] MEDS: Loratadine 10 MG TABLET PO SCH (08:42)
[2018-03-12] MEDS: Insulin DETEMIR 100 UNIT/ML X5UNITS SQ SCH (08:42)
[2018-03-12] MEDS: Multivit/Ca/Min/Fe/FA 1 TAB TABLET PO SCH (08:42)
[2018-03-12] MEDS: Metoprolol 100 MG TABLET PO SCH (08:43)
[2018-03-12] MEDS: Insulin LISPRO 300 UNITS/3 ML VIAL SQ SCH ×2 (08:54→12:38)
--- NOTE | 2018-03-12 09:38 | Cardiology Consult Note ---
<MathieuNessa Page - Last Filed: 03/12/18 10:08> Date of Encounter: 03/12/18 Time of Encounter: 08:30 Assessment and Plan (1) Chest pain Status: Acute Per cardiology: -Reported chest pain with exertion and out in heat. -Known history of CAD. -On imdur 30mg, reports unable to tolerate taking higher doses due to headaches -Troponins negative x4. -No acute ischemic ECG changes. -Pancytopenia noted. -Suspect Patient is not a candidate for invasive cardiac work up with pancytopenia (platelets 41), recurrent esophageal varices. Per hematology last office note hold ASA due to thrombocytopenia. -Recommend conservative medical management. Consider addition of ranexa. Discussed with patient and patient states that she "thinks I had a reaction to that." -Consider increasing imdur, if patient will allow. -Will discuss and review with . Qualifiers: Chest pain type: unspecified Qualified Code(s): R07.9 - Chest pain, unspecified (2) CAD (coronary artery disease) Status: Chronic Per cardiology: -Known history of CAD s/p PCI LAD 2012. -Last [facility] 03/2016 with 40% ISR mid LAD, 20% proximal circumflex, 30% mid RCA, 80 % PDA (small vessel, not amendable to PCI). -Stress 01/2017 negative for ischemia or infarct. -TTE 12/2017 LVEF 65%, mild diastolic dysfunction, no segmental wall motion abnormalities. -ON BB, Statin, imdur. Not on ASA due to thrombocytopenia. Qualifiers: Coronary Disease-Associated Artery/Lesion type: [place] artery [place] vs. transplanted heart: [place] heart Associated angina: angina presence unspecified Qualified Code(s): I25.10 - Atherosclerotic heart disease of [place] coronary artery without angina pectoris (3) Pancytopenia Status: Chronic Per cardiology: -WBC 1.5. -Hemoglobin 10.8. -PLatelets 41. -Follows with hematology outpatient. Per last hematology office note 03/09/18 hold ASA due to thrombocytopenia. -Management per primary service. Discussion w patient/family: The assessment and plan as outlined above was discussed with the patient and/or family members who expressed understanding and agreement. All questions were answered. Thank you for involving us in the care of your patient. Please call with any questions. Discussed and reviewed with . History of Present Illness Consult date: 03/11/18 Requesting physician: Quinn Craven Consult reason: chest pain Chief complaint: chest pressure History of present illness: Ms. Morgan is a 63 year old female with a relevant past medical history of CAD s/p PCI, DMII, SIMON, HTN, GERD, HLD, LANI, obesity, hypothyroidism, thrombocytopenia, fibromyalgia, anxiety, depression, splenomegaly who presented to [facility] with complaints of chest pain/pressure. Patient reports she was leaving a doctors appointment when she noticed chest pressure. Patient reports she then had sharp chest pain and presented to ER. Patient states pain worsened with exertion and with the heat. Denies alleviating factors. Patient reported shortness of breath, however has undergone paracentesis and states SOB improved after. Denies increased fatigue. Past Med Surg Social Fam HX - Past Medical History Attestation: Yes The following information was validated with the patient. Source: patient, old records reviewed Medical history: cirrhosis, coronary artery disease, diabetes, fibromyalgia, GERD, hyperlipidemia, hypertension, liver disease, myocardial infarction, thyroid disease, other Additional medical history: estuardo spleen, sleep apnea, varisces, stent x1 Psychiatric history: anxiety, depression, previous psychiatric hospitalization - Past Surgical History Surgical History: hysterectomy, other Additional surgical history: paracentesis - Social History Smoking Status: 2nd Hand Smoke Exposure Smokeless Tobacco Status: No Alcohol use: none Drug use: none - Family History Mother Living Status: Hx Family Cardiac Disorders: Yes (CAD) Hx Family Respiratory Disorders: Yes Hx Family Psychosocial Disorders: Yes Father Living Status: Hx Family Cardiac Disorders: Yes Hx Family Endocrine Disorder: Yes Medications and Allergies LORazepam [Ativan] 0.5 mg PO DAILY PRN 12/31/15 [History] Lactulose 30 ml PO DAILY PRN 12/31/15 [History] Loratadine [Claritin] 10 mg PO DAILY 12/31/15 [History] Nitroglycerin [Nitrostat] 0.4 mg SL Q5M PRN 12/31/15 [History] Omeprazole [PriLOSEC] 40 mg PO BID 12/31/15 [History] metFORMIN [Glucophage] 1,000 mg PO BIDWM 12/31/15 [History] raNITIdine HCl [Zantac] 150 mg PO HS 12/31/15 [History] traMADol [Ultram] 50 mg PO Q6HR PRN 12/31/15 [History] Rosuvastatin Calcium [Crestor] 20 mg PO HS 09/11/16 [History] Albuterol Sulfate [Ventolin Hfa] 2 puff IH Q4H PRN 01/31/17 [History] Fluticasone Propionate Nasal [Flonase] 1 spray NS DAILY PRN 01/31/17 [History] Fluticasone/Vilanterol [Breo Ellipta 100-25 Mcg INH] 1 puff IH DAILY 01/31/17 [ History] Gabapentin [Neurontin] 100 mg PO BID 01/31/17 [History] Ipratropium/Albuterol Neb [Duoneb] 3 ml IH Q6HR PRN 01/31/17 [History] Meclizine HCl [Verticalm] 25 mg PO DAILY PRN 01/31/17 [History] Multivitamin [One Daily Essential] 1 tab PO DAILY 01/31/17 [History] Metoprolol [Lopressor] 100 mg PO BID #60 tablet 03/17/17 [Rx] Bumetanide [Bumex] 1 mg PO DAILY 11/17/17 [History] Insulin ASPART [NovoLOG] 0 unit SQ ACHS 11/17/17 [History] Ondansetron [Zofran] 8 mg PO BID PRN 12/16/17 [History] Zolpidem [Ambien] 5 mg PO HS PRN 12/16/17 [History] Spironolactone [Aldactone] 100 mg PO BID 30 Days #60 tablet 12/19/17 [Rx] Insulin Glargine,Hum.rec.anlog [Basaglar Kwikpen U-100] 60 unit SQ BID 03/09/18 [History] Isosorbide MONOnitrate (24 HR) [Imdur] 30 mg PO DAILY 03/09/18 [History] 3 Allergy/AdvReac Type Severity Reaction Status Date / Time Hydroxychloroquine Allergy Hives Verified 03/09/18 11:50 [From Plaquenil] atorvastatin [From Lipitor] AdvReac Muscle Pain Verified 03/09/18 11:50 escitalopram [From Lexapro] AdvReac See Verified 03/09/18 11:50 Comments All Systems Review: The remainder of the systems were reviewed and are negative - Cardiovascular Cardiovascular: as per HPI, chest pain with exertion Physical Examination Vital Signs, Last 4 Hours Temp Pulse Resp BP Pulse Ox 03/12/18 08:10 97.7 F 67 17 115/72 98 03/12/18 08:04 16 115/72 97 General: Conversant, No Apparent Distress HEENT: Atraumatic, Normocephaly, Mucus Membranes Moist Neck: No JVD, Normal carotid pulses Cardiac: Reg Rate and Rhythm, Normal S1 and S2, No Murmur Lungs: Normal Breath Sounds, No Wheeze, Rales, Rhonchi Neuro: Alert and responsive, No focal deficits noted Abdomen: Non-Tender, Other (Firm) Skin: No rashes noted on visualized skin Musculoskeletal: No Chest Wall Tenderness Extremities: No Clubbing, No Cyanosis, Normal Pulses, Other (Mild bilateral pedal edema ) Results 03/12/18 04:44 03/12/18 04:44 Lab Results Active Medications Albuterol Sulfate (Proventil Neb) 2.5 mg IH Q2HR PRN; Protocol PRN Reason: Shortness Of Breath/Wheezing Stop: 09/09/18 07:27 Budesonide/Formoterol Fumarate (Symbicort) 2 puff IH BIDR KRISTIE Stop: 09/09/18 10:01 Last Admin: 03/12/18 08:04 Dose: 2 puff Dextrose/Water (Dextrose 50% (Syg)) 25 ml IVP AD PRN PRN Reason: Hypoglycemia Stop: 09/08/18 16:53 Docusate Sodium (Colace) 100 mg PO BID PRN PRN Reason: Constipation Stop: 09/08/18 21:01 Fluticasone Propionate (Flonase) 50 mcg NS DAILY PRN; Protocol PRN Reason: Allergy Symptoms Stop: 09/08/18 16:43 Furosemide (Lasix) 40 mg IVP BIDDIURETIC KRISTIE Stop: 09/08/18 17:31 Last Admin: 03/12/18 08:42 Dose: 40 mg Gabapentin (Neurontin) 100 mg PO BID KRISTIE Stop: 09/08/18 21:01 Last Admin: 03/12/18 08:41 Dose: 100 mg Glucagon (Glucagen) 1 mg IM ONCE PRN PRN Reason: Hypoglycemia Stop: 09/08/18 16:53 Glucose (Gluctose) 15 gm PO ONCE PRN PRN Reason: Hypoglycemia Stop: 09/08/18 16:53 Glucose (Gluctose) 30 gm PO ONCE PRN PRN Reason: Hypoglycemia Stop: 09/08/18 16:53 Dextrose (Dextrose 5%) 1,000 mls @ 100 mls/hr IVC .Q10H PRN PRN Reason: HYPOGLYCEMIA Stop: 09/08/18 16:53 Insulin Detemir (Levemir) 60 unit SQ BID [facility] Stop: 09/09/18 21:01 Last Admin: 03/12/18 08:42 Dose: 60 unit Insulin Human Lispro (Humalog) 0 units SQ HS [facility] PRN Reason: Protocol Stop: 09/08/18 21:01 Last Admin: 03/11/18 20:55 Dose: 6 units Insulin Human Lispro (Humalog) 0 units SQ TIDAC [facility] PRN Reason: Protocol Stop: 09/09/18 07:31 Last Admin: 03/12/18 08:54 Dose: 10 units Isosorbide Mononitrate (Imdur) 30 mg PO DAILY [facility] Stop: 09/09/18 09:01 Last Admin: 03/12/18 08:42 Dose: 30 mg Loratadine (Claritin) 10 mg PO DAILY [facility] PRN Reason: Protocol Stop: 09/09/18 09:01 Last Admin: 03/12/18 08:42 Dose: 10 mg Lorazepam (Ativan) 0.5 mg PO DAILY PRN PRN Reason: Anxiety Stop: 09/08/18 16:43 Meclizine HCl (Antivert) 25 mg PO DAILY PRN PRN Reason: DIZZINESS Metoprolol Tartrate (Lopressor) 100 mg PO BID [facility] Stop: 09/08/18 21:01 Last Admin: 03/12/18 08:43 Dose: 100 mg Multivitamins/Calcium (Thera M Plus) 1 tab PO DAILY [facility] Stop: 09/09/18 09:01 Last Admin: 03/12/18 08:42 Dose: 1 tab Naloxone HCl (Narcan) 0.4 mg IVP Q2MIN PRN PRN Reason: SEE COMMENTS Stop: 09/08/18 16:38 Nitroglycerin (Nitroglycerin) 0.4 mg SL Q5M PRN PRN Reason: Chest Pain Stop: 09/08/18 16:43 Last Admin: 03/11/18 14:27 Dose: 0.4 mg Omeprazole (Prilosec) 40 mg PO BIDAC KRISTIE PRN Reason: Protocol Stop: 09/09/18 07:31 Last Admin: 03/12/18 08:42 Dose: 40 mg Ondansetron HCl (Zofran) 4 mg IVP Q8HR PRN PRN Reason: Nausea And Vomiting Stop: 09/08/18 16:38 Oxycodone HCl (Roxicodone) 10 mg PO Q6HR PRN PRN Reason: Severe Pain Stop: 09/08/18 16:38 Last Admin: 03/10/18 20:11 Dose: 10 mg Promethazine HCl (Phenergan) 12.5 mg IVP Q6HR PRN PRN Reason: Nausea And Vomiting Stop: 09/08/18 16:38 Rosuvastatin Calcium (Crestor) 20 mg PO HS KRISTIE Stop: 09/08/18 21:01 Last Admin: 03/11/18 20:54 Dose: 20 mg Spironolactone (Aldactone) 100 mg PO BID KRISTIE Stop: 09/08/18 21:01 Last Admin: 03/12/18 08:42 Dose: 100 mg Tramadol HCl (Ultram) 50 mg PO Q6HR PRN PRN Reason: Moderate Pain Stop: 09/08/18 16:38 Last Admin: 03/10/18 16:05 Dose: 50 mg Zolpidem Tartrate (Ambien) 5 mg PO HS PRN; Protocol PRN Reason: Sleep Stop: 09/08/18 16:43 Laboratory Tests 03/09/18 03/09/18 03/09/18 14:31 14:31 21:00 WBC Hgb Plt Count 39 L Creatinine Troponin I < 0.03 < 0.03 03/10/18 03/11/18 03/12/18 03:37 14:35 04:44 WBC 1.5 L Hgb 10.8 L Plt Count 41 L Creatinine Troponin I < 0.03 < 0.03 03/12/18 04:44 WBC Hgb Plt Count Creatinine 0.68 Troponin I - Imaging and Cardiology Chest Xray: report reviewed Stress Test: report reviewed Echo: report reviewed Cardiac cath: report reviewed - EKG Interpretation EKG results cardiology: personally reviewed (ECG with SR, HR 67.), other ( Telemetry reviewed with average HR previous 12 hours noted to be 70, SR. PVCs and PACs noted.) Consult Discharge Plan - Plan Referrals: Paul Cantu, HOUSE COORDINATOR [Primary Care Provider] - <Flavio Hayward - Last Filed: 03/20/18 23:01> Date of Encounter: 03/12/18 Time of Encounter: 16:00 - Attending Attestation I have personally performed a face to face evaluation on this patient. I have reviewed and agree with the care plan. History and Exam by me shows: CC Chest pain, shortness of breath Pt reports was in her usual state of health, was leaving her physicians office, when developed mild 5/10 mid epigastric chest pain, first described as a heaviness, progressing to a sharp stabbing type chest pain over fifteen to twenty minutes. Pt reports chest pain was more severe with exertion, and when went from car to outside. She felt better when was back in air conditioning. She reports chest pain decreased to 2 out of ten in the ER. She notes chest pain resolved following paracentesis. She is now pain free. ROS: reviewed PMH: reviewed PE : pt seen and examined, agree with findings as documented. IMP/plan: 1. Chest pain, atypical, has ruled out for acute myocardial necrosis, troponins negative x 4, no acute EKg changes 2. CAD: known hx CAD, post PCI LAD 2012, last stress negative 01/2017 3. Pancytopenia: Not a candidate for invasive strategy, continue to maximize medical tx. Assessment and Plan Discussion w patient/family: The assessment and plan as outlined above was discussed with the patient and/or family members who expressed understanding and agreement. All questions were answered. Thank you for involving us in the care of your patient. Please call with any questions. History of Present Illness History of present illness: Ms. Morgan is a 63 year old female All Systems Review: The remainder of the systems were reviewed and are negative Results 03/12/18 04:44 03/12/18 04:44
--- NOTE | 2018-03-12 10:59 | Electrocardiograph Report ---
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
--- NOTE | 2018-03-12 11:58 | Discharge Summary ---
- NOTES TO OUTPATIENT PROVIDER Notes to Outpatient Provider: Admitted for chest pain, and ascites. ACS ruled out, cardiology eval no intervention. s/p paracentensis with 6.5 L removed, given albumin, CBC and Chem at baseline. Follow up with GI and PCP. Recommend routine weekly paracentensis Orders not resulted at time of discharge: Pending orders 03/10/18 15:49 Albumin,Peritoneal Fluid [BF] Stat Cell Cnt w Dif, Peritoneal Fl [BF] Stat Culture,Body Fluid [RM] Stat Glucose,Peritoneal Fluid [BF] Stat LDH,Peritoneal Fluid [BF] Stat 03/11/18 14:26 ECG 12 lead ECG [ECG] Stat Date of Encounter: 03/12/18 Time of Encounter: 11:57 - Discharge Diagnosis (1) Thrombocytopenia Priority: Secondary Status: Chronic (2) T2DM (type 2 diabetes mellitus) Priority: Secondary Status: Chronic Qualifiers: Diabetes mellitus rat exterminator insulin use: with fci use Diabetes mellitus complication status: with hyperglycemia Qualified Code(s): E11.65 - Type 2 diabetes mellitus with hyperglycemia; Z79.4 - long-term (current) use of insulin; Z79.4 - long-term (current) use of insulin; Z79.4 - terminal superintendent (current ) use of insulin; Z79.4 - terminal superintendent (current) use of insulin (3) Chest pain Priority: Primary Status: Acute Qualifiers: Chest pain type: unspecified Qualified Code(s): R07.9 - Chest pain, unspecified (4) SIMON (nonalcoholic steatohepatitis) Priority: Secondary Status: Chronic (5) Pancytopenia Priority: Secondary Status: Chronic (6) Cirrhosis of liver with ascites Priority: Secondary Status: Acute Qualifiers: Hepatic cirrhosis type: unspecified hepatic cirrhosis Qualified Code(s): K74.60 - Unspecified cirrhosis of liver; R18.8 - Other ascites Hospital course: Ms. Morgan is a 63 year old female with Liver cirrhosis due to SIMON, Esophageal varices X 3, DM, HTN, CAD, Pancytopenia She presented with complains of chest pain, and shortness of breath as well as abdominal distension Work up on admission including CBC and Chem were at baseline ECHO done showed EF 60% with no pericardial effusion, no hypokinesis, no significant valvular abnormality EKG was unremarkable, troponin negative X 4. Known severe small vessel disease on [facility] 03/2016--no intervention at that time. PCI in 2012. Negative stress test She underwent routine paracentensis, s/p removal of 6.5 L, she received albumin , renal function is stable Cardiology was consulted for patient's complain of chest pressure and there was no indication for intervention, recommendations to add renexa which patient reported allergy to Patient educated to go for routine paracentensis, follow up with Onc, GI, PCP. Plan of care discussed, verbalized understanding. Discharge discussed with: patient, family, nurse - Time Spent with Patient Total time spent providing and/or coordinating discharge services: Greater than 30 minutes - Discharge Medications Home Medications: LORazepam [Ativan] 0.5 mg PO DAILY PRN 12/31/15 [History] Lactulose 30 ml PO DAILY PRN 12/31/15 [History] Loratadine [Claritin] 10 mg PO DAILY 12/31/15 [History] Nitroglycerin [Nitrostat] 0.4 mg SL Q5M PRN 12/31/15 [History] Omeprazole [PriLOSEC] 40 mg PO BID 12/31/15 [History] metFORMIN [Glucophage] 1,000 mg PO BIDWM 12/31/15 [History] raNITIdine HCl [Zantac] 150 mg PO HS 12/31/15 [History] traMADol [Ultram] 50 mg PO Q6HR PRN 12/31/15 [History] Rosuvastatin Calcium [Crestor] 20 mg PO HS 09/11/16 [History] Albuterol Sulfate [Ventolin Hfa] 2 puff IH Q4H PRN 01/31/17 [History] Fluticasone Propionate Nasal [Flonase] 1 spray NS DAILY PRN 01/31/17 [History] Fluticasone/Vilanterol [Breo Ellipta 100-25 Mcg INH] 1 puff IH DAILY 01/31/17 [ History] Gabapentin [Neurontin] 100 mg PO BID 01/31/17 [History] Ipratropium/Albuterol Neb [Duoneb] 3 ml IH Q6HR PRN 01/31/17 [History] Meclizine HCl [Verticalm] 25 mg PO DAILY PRN 01/31/17 [History] Multivitamin [One Daily Essential] 1 tab PO DAILY 01/31/17 [History] Metoprolol [Lopressor] 100 mg PO BID #60 tablet 03/17/17 [Rx] Bumetanide [Bumex] 1 mg PO DAILY 11/17/17 [History] Insulin ASPART [NovoLOG] 0 unit SQ ACHS 11/17/17 [History] Ondansetron [Zofran] 8 mg PO BID PRN 12/16/17 [History] Zolpidem [Ambien] 5 mg PO HS PRN 12/16/17 [History] Spironolactone [Aldactone] 100 mg PO BID 30 Days #60 tablet 12/19/17 [Rx] Insulin Glargine,Hum.rec.anlog [Basaglar Kwikpen U-100] 60 unit SQ BID 03/09/18 [History] Isosorbide MONOnitrate (24 HR) [Imdur] 30 mg PO DAILY 03/09/18 [History] Allergies/Adverse Reactions: 3 Allergy/AdvReac Type Severity Reaction Status Date / Time Hydroxychloroquine Allergy Hives Verified 03/09/18 11:50 [From Plaquenil] atorvastatin [From Lipitor] AdvReac Muscle Pain Verified 03/09/18 11:50 escitalopram [From Lexapro] AdvReac See Verified 03/09/18 11:50 Comments Date of admission: 03/09/18 16:03 Primary care physician: Paul Cantu CNP Consults: 03/09/18 16:41 Consult to Gastroenterology [CONS] Routine Consulting Provider: Gastroenterology Tiffany Reason for Consult: Severe ascities Call Completed: No 03/09/18 17:33 Consult to Interventional Radiology [CONS] Routine Consulting Provider: Radiology Interventional Cols Reason for Consult: Paracentisis Call Completed: Yes 03/11/18 11:06 Consult to Cardiology [CONS] Routine Comment: Consulting Provider: Cardiology Tiffany Reason for Consult: Chest pain and SOB, known CAD, trops and EKG negative, patient requets cardio eval. ECHO from 12/2017 unremarkable Call Completed: Yes Discharging clinician: Quinn Craven Anticipated date of discharge: 03/12/18 - Constitutional Vitals: Temp Pulse Resp BP Pulse Ox 97.7 F 67 17 115/72 98 03/12/18 08:10 03/12/18 08:10 03/12/18 08:10 03/12/18 08:10 03/12/18 08:10 General appearance: Present: A&O X 3, morbidly obese, pleasant, no acute distress, answers questions appropriately - Head Head exam: Present: atraumatic, normocephalic - Eye Eye exam: Present: PERRL, conjuntiva pink, sclera anicteric Pupils: Present: PERRL - Neck Neck exam general surgery: Present: supple, trachea midline. Absent: lymphadenopathy - Respiratory Respiratory exam: Present: CTAB. Absent: accessory muscle use, rales, rhonchi, wheezes - Cardiovascular Cardiovascular exam: Present: RRR, +S1, +S2. Absent: diastolic murmur, gallop, rubs, systolic murmur - GI/Abdominal GI/Abdominal exam: Present: distended, normal bowel sounds, soft, no peritoneal signs. Absent: tenderness - Extremities Exam Extremities exam: Present: pedal edema, warm, radial pulses palpable and symmetrical. Absent: calf tenderness, cyanotic - Neurological Exam Neurological exam: Present: alert, CN II-XII intact, oriented X3, no focal deficits. Absent: pronater drift, facial droop, speech deficit - Skin Skin exam: Present: dry, intact - Patient Status Disposition: Home, Self-Care Condition: Fair Functional capacity at discharge: independent ambulation Overall status at discharge: patient is progressing back to baseline - Discharge Instructions Follow Up With: Paul Cantu CNP [Primary Care Provider] - - Diet and Activity Activity: resume usual activities as tolerated Diet: diabetic diet, low fat, low cholesterol, low salt diet
[2018-03-12 16:43] VITALS: BP 126/75
--- NOTE | 2018-03-12 21:37 | Electrocardiograph Report ---
[address] [place], [place] [address] Test Date: 2018-03-09 Pat Name: Odalis Morgan Department: 112 Room: 2A33 Gender: F Parts Facilitator: : [id number] Requested By: Yanci Mcdonald Order Number: [id number] Reading MD: Kavin Workman Measurements Intervals [place]oca Rate: 84 P: 30 WI: 154 QRS: -11 QRSD: 88 T: 11 QT: 432 QTc: 473 Interpretive Statements SINUS RHYTHM MODERATE VOLTAGE CRITERIA FOR LVH, CONSIDER NORMAL VARIANT POSSIBLE ANTERIOR MYOCARDIAL INFARCTION, PROBABLY OLD Electronically Signed On 03-12-2018 21:35:29 EDT by Kavin Workman
== END 2018-03-12 16:37 | disposition home or self-care (01) ==
LOC: 2ANU 13:26 → EMEROO 13:26 → 2ANU 16:44
PROVIDERS: ADMIT Family Medicine; ATTEND Family Medicine

== ENCOUNTER 2018-06-03 17:54 | Observation (INO) ==
--- NOTE | 2018-06-03 18:20 | Emergency Department Note ---
Disposition Clinical Impression: Slurred speech, Hyperammonemia, Thrombocytopenia Headache Qualifiers: Headache type: unspecified Headache chronicity pattern: acute headache Intractability: intractable Qualified Code(s): R51 - Headache Chest pain Qualifiers: Chest pain type: unspecified Qualified Code(s): R07.9 - Chest pain, unspecified Abdominal pain Qualifiers: Abdominal location: generalized Qualified Code(s): R10.84 - Generalized abdominal pain Disposition: Admitted As Inpatient Condition: Fair Referrals: Paul Cantu CNP [Primary Care Provider] - Forms: ED Satisfaction Letter Time of Disposition: 21:21 General Adult HPI - General Chief complaint: ED Headache Stated complaint: WEBBER Slurred Speech x 1 week Time Seen by Provider: 06/03/18 17:59 Source: patient, family Mode of arrival: ambulatory Limitations: no limitations Nursing Notes Reviewed: Yes Vital Signs Reviewed: Yes - History of Present Illness HPI Narrative: Patient is a 63-year-old female who presents to [facility] ED with multiple complaints. Patient states 5 days ago, she noticed that her speech was slurred. She then noted that she had some right upper quadrant abdominal pain in which she thought something was displaced from her prior TIPS procedure for Connelly. She then started getting a headache that would come and go that was both retro-orbital and in the left posterior occiput. Denies any nausea, vomiting, fever or chills. States she started getting some chest pain in the substernal region today when she was folding laundry. States this did seem to get a little bit worse with exertion and she also had some associated shortness of breath. Also states she started getting some left lower quadrant abdominal pain. No problems with urination or bowel movements. Onset (ago): day(s) (5) Location: head, chest, abdomen Radiation: non-radiation Pain Severity: moderate Pain Scale: 5 Quality: aching Consistency: intermittent Improves with: nothing Worsens with: nothing Associated symptoms: Reports: confusion, chest pain, headaches. Denies: cough, fever/chills, nausea/vomiting, shortness of breath, weakness Treatments Prior to Arrival: none - Related Data Home Medications Medication Instructions Recorded Confirmed LORazepam [Ativan] 0.5 mg PO DAILY PRN 12/31/15 05/24/18 Lactulose 30 ml PO DAILY PRN 12/31/15 05/24/18 Loratadine [Claritin] 10 mg PO DAILY 12/31/15 05/24/18 Nitroglycerin [Nitrostat] 0.4 mg SL Q5M PRN 12/31/15 05/24/18 Omeprazole [PriLOSEC] 40 mg PO BID 12/31/15 05/24/18 metFORMIN [Glucophage] 1,000 mg PO BIDWM 12/31/15 05/24/18 Rosuvastatin Calcium [Crestor] 20 mg PO HS 09/11/16 05/24/18 Albuterol Sulfate [Ventolin Hfa] 2 puff IH Q4H PRN 01/31/17 05/24/18 Fluticasone Propionate Nasal 1 spray NS DAILY PRN 01/31/17 05/24/18 [Flonase] Fluticasone/Vilanterol [Breo 1 puff IH DAILY 01/31/17 05/24/18 Ellipta 100-25 Mcg INH] Gabapentin [Neurontin] 200 mg PO DAILY 01/31/17 05/24/18 Ipratropium/Albuterol Neb [Duoneb] 3 ml IH Q6HR PRN 01/31/17 05/24/18 Meclizine HCl [Verticalm] 25 mg PO DAILY PRN 01/31/17 05/24/18 Multivitamin [One Daily Essential] 1 tab PO DAILY 01/31/17 05/24/18 Bumetanide [Bumex] 1 mg PO DAILY 11/17/17 05/24/18 Ondansetron [Zofran] 8 mg PO BID PRN 12/16/17 05/24/18 Zolpidem [Ambien] 5 mg PO HS PRN 12/16/17 05/24/18 Isosorbide MONOnitrate (24 HR) 30 mg PO DAILY 03/09/18 05/24/18 [Imdur] Insulin Regular, Human [Novolin R] See Protocol IJ ACHS 04/24/18 05/24/18 Tizanidine HCl [Zanaflex] 2 mg PO DAILY 04/24/18 05/24/18 Previous Rx's Medication Instructions Recorded Metoprolol [Lopressor] 100 mg PO BID #60 tablet 03/17/17 Spironolactone [Aldactone] 100 mg PO BID 30 Days #60 tablet 12/19/17 Allergies Allergy/AdvReac Type Severity Reaction Status Date / Time Hydroxychloroquine Allergy Hives Verified 06/03/18 18:09 [From Plaquenil] atorvastatin [From Lipitor] AdvReac Muscle Pain Verified 06/03/18 18:09 escitalopram [From Lexapro] AdvReac See Verified 06/03/18 18:09 Comments All systems ED: reviewed and negative except as stated. Past Medical History - Past Medical History Attestation: Yes The following information was validated with the patient. Source: patient Medical history: Reports: cirrhosis, coronary artery disease, diabetes, fibromyalgia, GERD, hyperlipidemia, hypertension, liver disease, myocardial infarction, thyroid disease, other Surgical history: Reports: hysterectomy, other Psychiatric history: Reports: anxiety, depression, previous psychiatric hospitalization - Social History Smoking Status: Never smoker Smokeless Tobacco Status: No Alcohol use: Reports: none Drug use: Reports: none Physical Exam - General General appearance: alert, in no apparent distress - Head Head exam: atraumatic, normocephalic, normal inspection - Eye Eye exam: Present: normal appearance, PERRL, EOMI - ENT ENT exam: normal exam, normal oropharynx, mucous membranes moist - Neck Neck exam: Present: normal inspection, full ROM, trachea midline - Chest Chest inspection: Present: normal inspection, symmetric chest wall rise - Respiratory Respiratory exam: Present: normal lung sounds bilaterally - Cardiovascular Cardiovascular exam: Present: regular rate, normal rhythm, normal heart sounds - Abdominal Exam Abdominal exam: Present: soft, tenderness, normal bowel sounds Abdominal tenderness: Present: RUQ, LLQ, diffuse, moderate - Extremities Exam Extremities exam: Present: normal inspection, full ROM. Absent: tenderness, pedal edema - Neurological Exam Neurological exam: Present: alert, oriented X3, CN II-XII intact. Absent: motor sensory deficit - Psychiatric Psychiatric exam: Present: normal affect, normal mood - Skin Skin exam: Present: warm, dry, intact, normal color Course Course Narrative: Patient seen and examined. Multiple complaints including slurred speech, headache, chest pain, abdominal pain. Patient had seen her primary care physician yesterday who had ordered an outpatient CT of the head to rule out stroke as well as ultrasound of her abdomen due to her abdominal pain. Patient states her symptoms have been ongoing for the last 5 days. Upon my examination , her vital signs are stable, she does not have any focal neurologic deficits. She has reported slurred speech though I do not appreciate any at this time nor does her . Patient's headache currently rated at 4 out of 10 that is retro-orbital. Denies any nausea, vomiting, fever or chills. States her chest pain started earlier today when she was folding the laundry. States the pain is still present at approximately a 5 out of 10. Due to her multiple complaints , a generalized workup was done including CT of the head, CT of the abdomen/ pelvis, cardiopulmonary workup with EKG, chest x-ray, troponin level. We will treat her headache with a migraine cocktail to see if this improves her symptoms. - Reevaluation(s) Reevaluation #1: A bedside POC ED ocular ultrasound was performed to evaluate for possible increased intracranial pressure. The right eye ONSD measured at approximately 2.1 mm and the left eye ONSD measured at 2.7 mm. This is well within the normal range of less than 5 mm. No signs of increased intracranial pressure based on this ocular ultrasound. Time: 20:04 Reevaluation #2: Patient's lab work shows signs of elevate elevated ammonia level 62. Patient given a dose of lactulose 20 g. patient's platelet count is 36. This is right around her baseline. She has chronic thrombocytopenia. Troponin is within normal limits. At this time due to her exertional chest pain and dyspnea as well as her weakness in her lower extremities and reported slurred speech, patient will be admitted for CVA, ACS workup. Hospitalist paged for admission. Time: 20:30 Vital Signs Temperature 99.1 F 06/03/18 18:01 Pulse Rate 94 06/03/18 18:01 Respiratory Rate 16 06/03/18 18:01 Blood Pressure 165/74 06/03/18 18:01 O2 Sat by Pulse Oximetry 99 06/03/18 18:01 Temperature 99.1 F 06/03/18 18:01 Pulse Rate 87 06/03/18 20:02 Respiratory Rate 18 06/03/18 20:02 Blood Pressure 147/61 06/03/18 20:02 O2 Sat by Pulse Oximetry 95 06/03/18 20:02 Oxygen Delivery Oxygen Delivery Room Air Medical Decision Making - Medical Records Medical records reviewed: Yes I reviewed the patient's medical records. - Lab Data Lab results reviewed: Yes I reviewed the patient's lab results. Result diagrams: 06/03/18 19:28 06/03/18 19:28 Lab Results 06/03/18 06/03/18 06/03/18 Range/Units 19:28 19:28 19:28 WBC 2.3 L (4.3-11.1) K/mcL RBC 4.29 (3.82-4.97) M/mcL Hgb 13.2 (11.5-15.4) g/dL Hct 36.8 (35.3-44.9) % MCV 85.8 (83.0-100.0) fL MCH 30.8 (28.0-33.3) pg MCHC 35.9 H (31.6-35.5) g/dL RDW 16.8 H (11.5-14.5) % Plt Count 36 L (140-400) K/mcL MPV 11.4 (9.4-12.4) fL Immature Gran % 0.0 (0-4) % Seg Neutrophils % 65.6 % Lymphocytes % 23.1 % Monocytes % 8.3 % Eosinophils % 2.6 % Basophils % 0.4 % Neutrophils # 1.5 L (1.6-8.9) K/mcL Lymphocytes # 0.5 L (0.6-4.6) K/mcL Monocytes # 0.2 (0.0-1.3) K/mcL Eosinophils # 0.1 (0.0-0.6) K/mcL Basophils # 0.0 (0.0-0.2) K/mcL Immature Plt Fraction 5.3 (1.1-6.1) % PT 14.5 H (9.4-12.1) Seconds INR 1.3 APTT 34.8 (26.0-36.0) Seconds Sodium 133 L (136-145) mEq/L Potassium 3.8 (3.5-5.1) mEq/L Chloride 98 (98-107) mEq/L Carbon Dioxide 26 (23-29) mEq/L BUN 8 (8-23) mg/dL Creatinine 0.52 L (0.60-1.20) mg/dL Est GFR ( Amer) > 60 (> 60) Est GFR (Non-Af Amer) > 60 (> 60) BUN/Creatinine Ratio 15 (6-26) Glucose 369 H (70-105) mg/dL Calculated Osmolality 289 (280-300) Calcium 9.1 (8.6-10.3) mg/dL Total Bilirubin (0.3-1.0) mg/dL Direct Bilirubin (0.0-0.2) mg/dL Indirect Bilirubin (0.0-1.2) mg/dL AST (13-39) Units/L ALT (7-52) Units/L Alkaline Phosphatase (34-104) Units/L Ammonia (16-53) mcmol/L Troponin I < 0.03 (< 0.04) ng/mL Serum Total Protein (6.4-8.9) g/dL Albumin (3.5-5.7) g/dL Globulin (2.4-3.5) g/dL Albumin/Globulin Ratio (1.1-2.2) Urine Color (Yellow) Urine Clarity (Clear) Urine pH (5.0-8.0) pH Units Ur Specific Somers (1.010-1.025) Urine Protein (Neg-Trace) mg/dL Urine Glucose (UA) (Normal) mg/dL Urine Ketones (Negative) mg/dL Urine Blood (Negative) Urine Nitrite (Negative) Urine Bilirubin (Negative) Urine Urobilinogen (Normal) mg/dL Ur Leukocyte Esterase (Negative) Ur Culture Indicated? (NO) 06/03/18 06/03/18 06/03/18 Range/Units 19:28 19:28 20:25 WBC (4.3-11.1) K/mcL RBC (3.82-4.97) M/mcL Hgb (11.5-15.4) g/dL Hct (35.3-44.9) % MCV (83.0-100.0) fL MCH (28.0-33.3) pg MCHC (31.6-35.5) g/dL RDW (11.5-14.5) % Plt Count (140-400) K/mcL MPV (9.4-12.4) fL Immature Gran % (0-4) % Seg Neutrophils % % Lymphocytes % % Monocytes % % Eosinophils % % Basophils % % Neutrophils # (1.6-8.9) K/mcL Lymphocytes # (0.6-4.6) K/mcL Monocytes # (0.0-1.3) K/mcL Eosinophils # (0.0-0.6) K/mcL Basophils # (0.0-0.2) K/mcL Immature Plt Fraction (1.1-6.1) % PT (9.4-12.1) Seconds INR APTT (26.0-36.0) Seconds Sodium (136-145) mEq/L Potassium (3.5-5.1) mEq/L Chloride (98-107) mEq/L Carbon Dioxide (23-29) mEq/L BUN (8-23) mg/dL Creatinine (0.60-1.20) mg/dL Est GFR ( Amer) (> 60) Est GFR (Non-Af Amer) (> 60) BUN/Creatinine Ratio (6-26) Glucose (70-105) mg/dL Calculated Osmolality (280-300) Calcium (8.6-10.3) mg/dL Total Bilirubin 3.1 H (0.3-1.0) mg/dL Direct Bilirubin 0.8 H (0.0-0.2) mg/dL Indirect Bilirubin 2.3 H (0.0-1.2) mg/dL AST 35 (13-39) Units/L ALT 24 (7-52) Units/L Alkaline Phosphatase 105 H (34-104) Units/L Ammonia 62 H (16-53) mcmol/L Troponin I (< 0.04) ng/mL Serum Total Protein 5.8 L (6.4-8.9) g/dL Albumin 3.3 L (3.5-5.7) g/dL Globulin 2.5 (2.4-3.5) g/dL Albumin/Globulin Ratio 1.3 (1.1-2.2) Urine Color Yellow (Yellow) Urine Clarity Clear (Clear) Urine pH 5.0 (5.0-8.0) pH Units Ur Specific Somers > 1.030 H (1.010-1.025) Urine Protein Negative (Neg-Trace) mg/dL Urine Glucose (UA) >=1000 H (Normal) mg/dL Urine Ketones 15 H (Negative) mg/dL Urine Blood Negative (Negative) Urine Nitrite Negative (Negative) Urine Bilirubin Negative (Negative) Urine Urobilinogen Normal (Normal) mg/dL Ur Leukocyte Esterase Negative (Negative) Ur Culture Indicated? NO (NO) - Radiology Data Radiology results reviewed: Yes I reviewed the patient's radiology results. Abdomen/Pelvis CT 06/03/18 18:18 IMPRESSION: 1. No acute noncontrast findings in the abdomen or pelvis. 2. Cirrhosis with stigmata of portal hypertension. Status post interval displacement. D/ / 06/03/2018 19:33:44 Jayna Rooney MD / mally Interpreting Provider: Jayna Rooney MD Head CT 06/03/18 18:18 IMPRESSION: No acute intracranial abnormality. Atrophy and mild small vessel ischemic change Mild sphenoid sinus disease D/ / Eleno Schulz MD / Eleno Schulz MD Interpreting Provider: Eleno Schulz MD Chest X-Ray 06/03/18 18:19 IMPRESSION: Negative portable study. D/ / Peggy Arauz Cha, MD / Peggy Arauz Cha, MD Interpreting Provider: Peggy Arauz Cha, MD - EKG Data EKG #1 EKG attestation: Yes I reviewed and interpreted this EKG. EKG results narrative: EKG done at 1811 shows normal sinus rhythm with a rate of [address] elevation or depression noted. Normal axis. Inverted T waves noted in lead 3. No prior EKG for comparison.
[2018-06-03 19:40] LABS: Basophils % 0.4 %
[2018-06-03] MEDS ORDERED: Metoclopramide 10 MG/2 ML VIAL IVP ONE (19:41)
[2018-06-03 19:42] LABS: Eosinophils # 0.1 K/mcL (0.0-0.6); Eosinophils % 2.6 %; Hematocrit 36.8 % (35.3-44.9); Hemoglobin 13.2 g/dL (11.5-15.4); Immature Platelets 5.3 % (1.1-6.1); Lymphocytes # 0.5 K/mcL (0.6-4.6); Lymphocytes % 23.1 %; Mean Corpuscular HGB Conc 35.9 g/dL (31.6-35.5); Mean Corpuscular Hemoglobin 30.8 pg (28.0-33.3); Mean Corpuscular Volume 85.8 fL (83.0-100.0); Mean Platelet Volume 11.4 fL (9.4-12.4); Monocytes # 0.2 K/mcL (0.0-1.3); Monocytes % 8.3 %; Neutrophils # 1.5 K/mcL (1.6-8.9); Red Blood Count 4.29 M/mcL (3.82-4.97); Red Cell Distribution Width 16.8 % (11.5-14.5); Segmented Neutrophils % 65.6 %
[2018-06-03 19:45] LABS: INR 1.3; Prothrombin Time 14.5 Seconds (9.4-12.1)
[2018-06-03 19:47] LABS: Activated Partial Thrombo Time 34.8 Seconds (26.0-36.0)
[2018-06-03 19:54] LABS: Platelet Count 36 K/mcL (140-400)
--- NOTE | 2018-06-03 19:59 | Emergency Department Note ---
Disposition Clinical Impression: Slurred speech, Hyperammonemia, Thrombocytopenia Headache Qualifiers: Headache type: unspecified Headache chronicity pattern: acute headache Intractability: intractable Qualified Code(s): R51 - Headache Chest pain Qualifiers: Chest pain type: chest pain due to myocardial ischemia Ischemic chest pain type : stable angina pectoris Qualified Code(s): I20.8 - Other forms of angina pectoris Abdominal pain Qualifiers: Abdominal location: generalized Qualified Code(s): R10.84 - Generalized abdominal pain Disposition: Admitted As Inpatient Condition: Fair General Adult HPI - General Chief complaint: ED Headache Stated complaint: WEBBER Slurred Speech x 1 week Time Seen by Provider: 06/03/18 17:59 Source: patient, family Mode of arrival: ambulatory Limitations: no limitations - History of Present Illness Location: head, chest, abdomen Pain Scale: 5 Quality: aching Improves with: nothing Worsens with: nothing Associated symptoms: Reports: confusion, chest pain, headaches. Denies: cough, fever/chills, nausea/vomiting, shortness of breath, weakness Treatments Prior to Arrival: none - Related Data Home Medications Medication Instructions Recorded Confirmed Albuterol Sulfate [Ventolin Hfa] 2 puff IH Q4H PRN 06/05/18 06/05/18 Bumetanide [Bumex] 1 mg PO DAILY 06/05/18 06/05/18 Fluticasone Propionate Nasal 1 spr NS DAILY PRN 06/05/18 06/05/18 [Flonase] Fluticasone/Vilanterol [Breo 1 puff IH DAILY 06/05/18 06/05/18 Ellipta 100-25 Mcg INH] Gabapentin [Neurontin] 300 mg PO HS 06/05/18 06/05/18 Insulin NPH Human Isophane 60 unit SQ BID 06/05/18 06/05/18 [Novolin N] Insulin Regular, Human [Novolin R] 10 - 55 unit SQ TIDWM 06/05/18 06/05/18 Ipratropium/Albuterol Neb [Duoneb] 3 ml IH Q6HR PRN 06/05/18 06/05/18 Isosorbide MONOnitrate (24 HR) 90 mg PO DAILY 06/05/18 06/05/18 [Imdur] LORazepam [Ativan] 0.5 mg PO Q8H PRN 06/05/18 06/05/18 Loratadine [Claritin] 10 mg PO DAILY 06/05/18 06/05/18 Meclizine HCl [Verticalm] 25 mg PO DAILY PRN 06/05/18 06/05/18 Metoprolol [Lopressor] 100 mg PO DAILY 06/05/18 06/05/18 Multivitamin [One Daily 1 tab PO DAILY 06/05/18 06/05/18 Multivitamin] Rosuvastatin [Crestor] 20 mg PO HS 06/05/18 06/05/18 Spironolactone [Aldactone] 50 mg PO DAILY 06/05/18 06/05/18 Zolpidem [Ambien] 5 mg PO HS PRN 06/05/18 06/05/18 metFORMIN [Glucophage] 500 mg PO BIDWM 06/05/18 06/05/18 raNITIdine HCl [Zantac] 150 mg PO HS 06/05/18 06/05/18 Allergies Allergy/AdvReac Type Severity Reaction Status Date / Time Hydroxychloroquine Allergy Hives Verified 06/03/18 18:09 [From Plaquenil] atorvastatin [From Lipitor] AdvReac Muscle Pain Verified 06/03/18 18:09 escitalopram [From Lexapro] AdvReac See Verified 06/03/18 18:09 Comments Past Medical History - Past Medical History Medical history: Reports: cirrhosis, coronary artery disease, diabetes, fibromyalgia, GERD, hyperlipidemia, hypertension, liver disease, myocardial infarction, thyroid disease, other Surgical history: Reports: hysterectomy, other Psychiatric history: Reports: anxiety, depression, previous psychiatric hospitalization - Social History Smoking Status: Never smoker Smokeless Tobacco Status: No Alcohol use: Reports: none Drug use: Reports: none Physical Exam - General Limitations: no limitations General appearance: alert, in no apparent distress Course Vital Signs Temperature 99.1 F 06/03/18 18:01 Pulse Rate 94 06/03/18 18:01 Respiratory Rate 16 06/03/18 18:01 Blood Pressure 165/74 06/03/18 18:01 O2 Sat by Pulse Oximetry 99 06/03/18 18:01 Temperature 97.8 F 06/05/18 07:01 Pulse Rate 74 06/05/18 07:01 Respiratory Rate 15 06/05/18 07:01 Blood Pressure 136/52 06/05/18 07:01 O2 Sat by Pulse Oximetry 97 06/05/18 07:01 Oxygen Delivery Oxygen Delivery Room Air Medical Decision Making - Lab Data Result diagrams: 06/04/18 02:26 06/04/18 02:26 Lab Results 06/03/18 06/03/18 06/03/18 Range/Units 18:01 19:28 19:28 WBC 2.3 L (4.3-11.1) K/mcL RBC 4.29 (3.82-4.97) M/mcL Hgb 13.2 (11.5-15.4) g/dL Hct 36.8 (35.3-44.9) % MCV 85.8 (83.0-100.0) fL MCH 30.8 (28.0-33.3) pg MCHC 35.9 H (31.6-35.5) g/dL RDW 16.8 H (11.5-14.5) % Plt Count 36 L (140-400) K/mcL MPV 11.4 (9.4-12.4) fL Immature Gran % 0.0 (0-4) % Seg Neutrophils % 65.6 % Lymphocytes % 23.1 % Monocytes % 8.3 % Eosinophils % 2.6 % Basophils % 0.4 % Neutrophils # 1.5 L (1.6-8.9) K/mcL Lymphocytes # 0.5 L (0.6-4.6) K/mcL Monocytes # 0.2 (0.0-1.3) K/mcL Eosinophils # 0.1 (0.0-0.6) K/mcL Basophils # 0.0 (0.0-0.2) K/mcL Immature Plt Fraction 5.3 (1.1-6.1) % PT 14.5 H (9.4-12.1) Seconds INR 1.3 APTT 34.8 (26.0-36.0) Seconds Sodium (136-145) mEq/L Potassium (3.5-5.1) mEq/L Chloride (98-107) mEq/L Carbon Dioxide (23-29) mEq/L BUN (8-23) mg/dL Creatinine (0.60-1.20) mg/dL Est GFR ( Amer) (> 60) Est GFR (Non-Af Amer) (> 60) BUN/Creatinine Ratio (6-26) Glucose (70-105) mg/dL POC Glucose 397 H (70-99) mg/dL Calculated Osmolality (280-300) Calcium (8.6-10.3) mg/dL Total Bilirubin (0.3-1.0) mg/dL Direct Bilirubin (0.0-0.2) mg/dL Indirect Bilirubin (0.0-1.2) mg/dL AST (13-39) Units/L ALT (7-52) Units/L Alkaline Phosphatase (34-104) Units/L Ammonia (16-53) mcmol/L Troponin I (< 0.04) ng/mL Serum Total Protein (6.4-8.9) g/dL Albumin (3.5-5.7) g/dL Globulin (2.4-3.5) g/dL Albumin/Globulin Ratio (1.1-2.2) Urine Color (Yellow) Urine Clarity (Clear) Urine pH (5.0-8.0) pH Units Ur Specific [place] (1.010-1.025) Urine Protein (Neg-Trace) mg/dL Urine Glucose (UA) (Normal) mg/dL Urine Ketones (Negative) mg/dL Urine Blood (Negative) Urine Nitrite (Negative) Urine Bilirubin (Negative) Urine Urobilinogen (Normal) mg/dL Ur Leukocyte Esterase (Negative) Ur Culture Indicated? (NO) 06/03/18 06/03/18 06/03/18 Range/Units 19:28 19:28 19:28 WBC (4.3-11.1) K/mcL RBC (3.82-4.97) M/mcL Hgb (11.5-15.4) g/dL Hct (35.3-44.9) % MCV (83.0-100.0) fL MCH (28.0-33.3) pg MCHC (31.6-35.5) g/dL RDW (11.5-14.5) % Plt Count (140-400) K/mcL MPV (9.4-12.4) fL Immature Gran % (0-4) % Seg Neutrophils % % Lymphocytes % % Monocytes % % Eosinophils % % Basophils % % Neutrophils # (1.6-8.9) K/mcL Lymphocytes # (0.6-4.6) K/mcL Monocytes # (0.0-1.3) K/mcL Eosinophils # (0.0-0.6) K/mcL Basophils # (0.0-0.2) K/mcL Immature Plt Fraction (1.1-6.1) % PT (9.4-12.1) Seconds INR APTT (26.0-36.0) Seconds Sodium 133 L (136-145) mEq/L Potassium 3.8 (3.5-5.1) mEq/L Chloride 98 (98-107) mEq/L Carbon Dioxide 26 (23-29) mEq/L BUN 8 (8-23) mg/dL Creatinine 0.52 L (0.60-1.20) mg/dL Est GFR ( Amer) > 60 (> 60) Est GFR (Non-Af Amer) > 60 (> 60) BUN/Creatinine Ratio 15 (6-26) Glucose 369 H (70-105) mg/dL POC Glucose (70-99) mg/dL Calculated Osmolality 289 (280-300) Calcium 9.1 (8.6-10.3) mg/dL Total Bilirubin 3.1 H (0.3-1.0) mg/dL Direct Bilirubin 0.8 H (0.0-0.2) mg/dL Indirect Bilirubin 2.3 H (0.0-1.2) mg/dL AST 35 (13-39) Units/L ALT 24 (7-52) Units/L Alkaline Phosphatase 105 H (34-104) Units/L Ammonia 62 H (16-53) mcmol/L Troponin I < 0.03 (< 0.04) ng/mL Serum Total Protein 5.8 L (6.4-8.9) g/dL Albumin 3.3 L (3.5-5.7) g/dL Globulin 2.5 (2.4-3.5) g/dL Albumin/Globulin Ratio 1.3 (1.1-2.2) Urine Color (Yellow) Urine Clarity (Clear) Urine pH (5.0-8.0) pH Units Ur Specific [place] (1.010-1.025) Urine Protein (Neg-Trace) mg/dL Urine Glucose (UA) (Normal) mg/dL Urine Ketones (Negative) mg/dL Urine Blood (Negative) Urine Nitrite (Negative) Urine Bilirubin (Negative) Urine Urobilinogen (Normal) mg/dL Ur Leukocyte Esterase (Negative) Ur Culture Indicated? (NO) 06/03/18 Range/Units 20:25 WBC (4.3-11.1) K/mcL RBC (3.82-4.97) M/mcL Hgb (11.5-15.4) g/dL Hct (35.3-44.9) % MCV (83.0-100.0) fL MCH (28.0-33.3) pg MCHC (31.6-35.5) g/dL RDW (11.5-14.5) % Plt Count (140-400) K/mcL MPV (9.4-12.4) fL Immature Gran % (0-4) % Seg Neutrophils % % Lymphocytes % % Monocytes % % Eosinophils % % Basophils % % Neutrophils # (1.6-8.9) K/mcL Lymphocytes # (0.6-4.6) K/mcL Monocytes # (0.0-1.3) K/mcL Eosinophils # (0.0-0.6) K/mcL Basophils # (0.0-0.2) K/mcL Immature Plt Fraction (1.1-6.1) % PT (9.4-12.1) Seconds INR APTT (26.0-36.0) Seconds Sodium (136-145) mEq/L Potassium (3.5-5.1) mEq/L Chloride (98-107) mEq/L Carbon Dioxide (23-29) mEq/L BUN (8-23) mg/dL Creatinine (0.60-1.20) mg/dL Est GFR ( Amer) (> 60) Est GFR (Non-Af Amer) (> 60) BUN/Creatinine Ratio (6-26) Glucose (70-105) mg/dL POC Glucose (70-99) mg/dL Calculated Osmolality (280-300) Calcium (8.6-10.3) mg/dL Total Bilirubin (0.3-1.0) mg/dL Direct Bilirubin (0.0-0.2) mg/dL Indirect Bilirubin (0.0-1.2) mg/dL AST (13-39) Units/L ALT (7-52) Units/L Alkaline Phosphatase (34-104) Units/L Ammonia (16-53) mcmol/L Troponin I (< 0.04) ng/mL Serum Total Protein (6.4-8.9) g/dL Albumin (3.5-5.7) g/dL Globulin (2.4-3.5) g/dL Albumin/Globulin Ratio (1.1-2.2) Urine Color Yellow (Yellow) Urine Clarity Clear (Clear) Urine pH 5.0 (5.0-8.0) pH Units Ur Specific [place] > 1.030 H (1.010-1.025) Urine Protein Negative (Neg-Trace) mg/dL Urine Glucose (UA) >=1000 H (Normal) mg/dL Urine Ketones 15 H (Negative) mg/dL Urine Blood Negative (Negative) Urine Nitrite Negative (Negative) Urine Bilirubin Negative (Negative) Urine Urobilinogen Normal (Normal) mg/dL Ur Leukocyte Esterase Negative (Negative) Ur Culture Indicated? NO (NO) Attestation Statement - Attestation Attestation: I examined this patient and my medical decision-making was reviewed with the Resident Physician. I agree with the documented findings, disposition and treatment plan as described except to the extent set forth below. Patient to the ED with headache. Weakness. Blurry vision. Onset several days ago. Sent in by PCP. Free of rash and a TIPS procedure. On examination she is awake alert and oriented and does not appear to be in any acute distress. Pupils equal reactive. Lungs clear. Abdomen soft. Plan. CT head abdomen. Labs include ammonia level. Reevaluate. Patient's labs are returning unremarkable. His elevated bilirubin that is lower than her last check. She is chronically leukopenic. Blood glucose in the 300s, but her anion gap is normal. Ammonia still pending at this time.
[2018-06-03 20:02] LABS: Albumin 3.3 g/dL (3.5-5.7); Albumin/Globulin Ratio 1.3 (1.1-2.2); Bilirubin,Direct 0.8 mg/dL (0.0-0.2); Bilirubin,Indirect 2.3 mg/dL (0.0-1.2); Bilirubin,Total 3.1 mg/dL (0.3-1.0); Globulin 2.5 g/dL (2.4-3.5); Total Protein 5.8 g/dL (6.4-8.9)
[2018-06-03 20:04] LABS: BUN/Creatinine Ratio 15 (6-26); Blood Urea Nitrogen 8 mg/dL (8-23); Calcium 9.1 mg/dL (8.6-10.3); Carbon Dioxide 26 mEq/L (23-29); Chloride 98 mEq/L (98-107); Glucose 369 mg/dL (70-105); Osmolality,Calculated 289 (280-300); Potassium 3.8 mEq/L (3.5-5.1); Sodium 133 mEq/L (136-145); Troponin I < 0.03 ng/mL (< 0.04); eGFR For Non-African Americans > 60 (> 60)
[2018-06-03] MEDS ORDERED: Lactulose Oral Soln 20 GM/30 ML UDC PO ONE (20:23)
[2018-06-03 20:34] LABS: Bilirubin,Urine Negative (Negative); Blood,Urine Negative (Negative); Clarity,Urine Clear (Clear); Color,Urine Yellow (Yellow); Glucose,Urine (UA) >=1000 mg/dL (Normal); Ketones,Urine 15 mg/dL (Negative); Leukocyte Esterase,Urine Negative (Negative); Nitrite,Urine Negative (Negative); Protein,Urine Negative (Neg-Trace); Specific Gravity,Urine > 1.030 (1.010-1.025); Urobilinogen,Urine Normal (Normal)
[2018-06-04] MEDS ORDERED: *HR* Dextrose 50 % in Water (Syg) 50 ML SYRINGE IVP PRN (01:39)
[2018-06-04] MEDS ORDERED: Dextrose Gel 15 GM/37.5 ML TUBE PO PRN ×2 (01:39)
[2018-06-04] MEDS ORDERED: *HR* OxyCODONE Immed Rel 5 MG TABLET PO PRN (01:39)
[2018-06-04] MEDS ORDERED: D5% in Water 1,000 ML IVC PRN (01:39)
[2018-06-04] MEDS ORDERED: Naloxone 0.4 MG/ML INJ IVP PRN (01:39)
--- NOTE | 2018-06-04 02:13 | Internal Med History&Physical ---
Date of Encounter: 06/04/18 Time of Encounter: 00:30 Internal Medicine - H&P: HPI Chief complaint: chest pain; slurred speech Admitted From: Emergency Dept Plans for Post Hospital Care: Home History of present illness: Ms. Morgan is a 63 year old female who presents to the ER tonight with complaints of chest pain, dyspnea, and some diaphoresis. Additionally, she has had some slurred speech and some tingling in her hands for the last 5 days. She underwent workup in the ER, which was negative. However, given her comorbidities and prior history of heart disease, she was admitted to hospitalist service. Of note, she had a CT of the head which was negative but did show some sphenoid sinusitis. She also had a CT of the abdomen, which was negative except for confirmation of her cirrhosis. Upon my assessment of the patient, she is chest pain-free presently. Her slurred speech has resolved and is back to baseline. She has no further numbness or tingling of her hands. She denies any focal deficits. She tells me that she often does have slurred speech on occasion secondary to her chronic liver disease. I suspect this is due to hepatic encephalopathy. She has a history of SIMON cirrhosis and a history of coronary disease and prior NH. She has pancytopenia secondary to her cirrhotic liver disease and splenic sequestration. Regarding her chest pain, she states it was similar to that of her NH several years ago. She denies prior history of stroke. However, she is diabetic and has risk factors for stroke and heart disease. Past Med Surg Social Fam HX - Past Medical History Attestation: Yes The following information was validated with the patient. Source: patient, old records reviewed Medical history: cirrhosis, coronary artery disease, diabetes, fibromyalgia, GERD, hyperlipidemia, hypertension, liver disease, myocardial infarction, thyroid disease Additional medical history: estuardo spleen, sleep apnea, varices, stent x1 Psychiatric history: anxiety, depression, previous psychiatric hospitalization - Past Surgical History Surgical History: hysterectomy, other Additional surgical history: paracentesis. 04/21/18 PARACENTESIS @[facility] DEPT - Social History Smoking Status: Never smoker Smokeless Tobacco Status: No Alcohol use: none Drug use: none Current living situation: Home, With Family Recent Out of Country Travel Within the Last 8 Weeks: No - Family History Mother Living Status: Cause of : Interstital lung disease Hx Family Cardiac Disorders: Yes (CAD) Hx Family Respiratory Disorders: Yes Hx Family Cancer: Yes Father Living Status: Age at : 41 Cause of : Heart attack Hx Family Cardiac Disorders: Yes Hx Family Endocrine Disorder: Yes Internal Medicine - H&P: Meds LORazepam [Ativan] 0.5 mg PO DAILY PRN 12/31/15 [History] Lactulose 30 ml PO DAILY PRN 12/31/15 [History] Loratadine [Claritin] 10 mg PO DAILY 12/31/15 [History] Nitroglycerin [Nitrostat] 0.4 mg SL Q5M PRN 12/31/15 [History] Omeprazole [PriLOSEC] 40 mg PO BID 12/31/15 [History] metFORMIN [Glucophage] 1,000 mg PO BIDWM 12/31/15 [History] Rosuvastatin Calcium [Crestor] 20 mg PO HS 09/11/16 [History] Albuterol Sulfate [Ventolin Hfa] 2 puff IH Q4H PRN 01/31/17 [History] Fluticasone Propionate Nasal [Flonase] 1 spray NS DAILY PRN 01/31/17 [History] Fluticasone/Vilanterol [Breo Ellipta 100-25 Mcg INH] 1 puff IH DAILY 01/31/17 [ History] Gabapentin [Neurontin] 200 mg PO DAILY 01/31/17 [History] Ipratropium/Albuterol Neb [Duoneb] 3 ml IH Q6HR PRN 01/31/17 [History] Meclizine HCl [Verticalm] 25 mg PO DAILY PRN 01/31/17 [History] Multivitamin [One Daily Essential] 1 tab PO DAILY 01/31/17 [History] Metoprolol [Lopressor] 100 mg PO BID #60 tablet 03/17/17 [Rx] Bumetanide [Bumex] 1 mg PO DAILY 11/17/17 [History] Ondansetron [Zofran] 8 mg PO BID PRN 12/16/17 [History] Zolpidem [Ambien] 5 mg PO HS PRN 12/16/17 [History] Spironolactone [Aldactone] 100 mg PO BID 30 Days #60 tablet 12/19/17 [Rx] Isosorbide MONOnitrate (24 HR) [Imdur] 30 mg PO DAILY 03/09/18 [History] Insulin Regular, Human [Novolin R] See Protocol IJ ACHS 04/24/18 [History] Tizanidine HCl [Zanaflex] 2 mg PO DAILY 04/24/18 [History] 3 Allergy/AdvReac Type Severity Reaction Status Date / Time Hydroxychloroquine Allergy Hives Verified 06/03/18 18:09 [From Plaquenil] atorvastatin [From Lipitor] AdvReac Muscle Pain Verified 06/03/18 18:09 escitalopram [From Lexapro] AdvReac See Verified 06/03/18 18:09 Comments - Constitutional Constitutional: lethargy, weakness, no chills, no fever(s) - EENT Eyes: no blurry vision, no change in vision Ears: no ear pain, no tinnitus Nose, mouth and throat: nasal congestion, sinus pressure, no sore throat - Cardiovascular Cardiovascular ROS IM: chest pain, diaphoresis, dyspnea, no orthopnea, no syncope - Respiratory Respiratory: no cough, no hemoptysis, no chest congestion, no excessive phlegm production - Gastrointestinal Gastrointestinal: abdominal pain, no diarrhea, no hematemesis, no hematochezia, no melena, no nausea, no vomiting - Genitourinary Genitourinary: no dysuria, no flank pain, no hematuria - Musculoskeletal Musculoskeletal ROS IM: no arthralgias, no back pain - Integumentary Integumentary IM: no rash - Neurological Neurological ROS: abnormal speech, headache(s), paresthesias, no focal weakness , no frequent falls - Psychiatric Psychiatric: no anxiety, no depression - Endocrine Endocrine IM: no polydipsia, no polyuria - Allergic/Immunologic Allergic/Immunologic: GI upset with certain foods - Constitutional Vitals: Temp Pulse Resp BP Pulse Ox 98.1 F 85 15 152/65 98 06/03/18 22:21 06/03/18 22:21 06/03/18 22:21 06/03/18 22:21 06/03/18 23:20 General appearance: Present: cooperative, A&O X 3, pleasant, no acute distress, answers questions appropriately Exam: speech minimally slurred -- patient reports this is her baseline - Head Head exam: Present: atraumatic, normal inspection - Eye Eye exam: Present: EOMI, PERRL, scleral icterus (minimal) Pupils: Present: normal accommodation - ENT ENT exam: Present: mucous membranes dry, normal exam, normal oropharynx - Neck Neck exam general surgery: Present: full ROM, supple. Absent: tenderness, nuchal rigidity, thyromegaly - Expanded Neck Exam Neck exam: Absent: carotid bruit - Respiratory Respiratory exam: Present: CTAB. Absent: chest wall tenderness, rales, rhonchi , wheezes - Cardiovascular Cardiovascular exam: Present: RRR, +S1, +S2, systolic murmur (grade 2-3). Absent: diastolic murmur - GI/Abdominal GI/Abdominal exam: Present: distended, normal bowel sounds. Absent: rebound, tenderness, no peritoneal signs Additional comments: + fluid wave - Extremities Exam Extremities exam: Present: full ROM, warm, radial pulses palpable and symmetrical. Absent: calf tenderness, joint swelling, tenderness - Back Exam Back exam: Absent: CVA tenderness (L), CVA tenderness (R) - Neurological Exam Neurological exam: Present: alert, CN II-XII intact, oriented X3, no focal deficits, strengths equal and symetr throughout, speech deficit (minimally slurred -- chronic/baseline per patient). Absent: motor sensory deficit - Psychiatric Psychiatric exam: Present: normal affect, normal mood - Skin Skin exam: Present: dry, intact, warm Internal Med - H&P Results - Labs CBC & Chem 7: 06/03/18 19:28 06/03/18 19:28 - EKG Data -: EKG Interpreted by Myself - EKG Data Prior EKG available for review: no EKG comments: 06/04/18 02:23 NSR; no acute St-T changes - Diagnostic Studies Chest x-ray Status: image reviewed by me (negative) - Assessment and plan (1) Chest pain Current Visit: Yes Status: Acute Assessment and plan: 1. Will trend troponins, EKG's. 2. Patient is not an invasive candidate due to cirrhosis, known varices, and pancytopenia from liver disease. Nonetheless, will consult cardiology for further guidance regarding medical management changes as per last hospital stay in March. 3. Patient has prominent murmur on exam and presents with slurred speech -- will order ECHO. Qualifiers: Chest pain type: chest pain due to myocardial ischemia Ischemic chest pain type: stable angina pectoris Qualified Code(s): I20.8 - Other forms of angina pectoris (2) Type 2 diabetes mellitus Current Visit: Yes Status: Chronic Assessment and plan: 1. Hold oral meds. 2. Will place on SSI. 3. Monitor glucose and adjust insulin as necessary. 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 Patient speech now at baseline -- minimally slurred. No other focal deficits noted. 2. I suspect this is due to hepatic encephalopathy; however, she has risk factors for stroke. Will proceed with stroke work-up. 3. Will order MRI brain, ECHO, Carotid Dopplers, speech consult. (4) Liver cirrhosis secondary to SIMON Current Visit: Yes Status: Chronic Assessment and plan: 1. Chronic. She follows with Dr. Brambila and recently had a TIPPS shunt placed. 2. No recent history of GI/variceal bleeding. (5) Sphenoid sinusitis Current Visit: Yes Status: Acute Assessment and plan: 1. Noted on CT and likely cause of headache. 2. Will place on Rocephin and convert to oral antibiotics when no longer npo. Qualifiers: Chronicity: acute Recurrence: non-recurrent Qualified Code(s): J01.30 - Acute sphenoidal sinusitis, unspecified (6) DVT prophylaxis Current Visit: Yes Status: Acute Assessment and plan: 1. EPCD's.
[2018-06-04 02:41] LABS: Mean Platelet Volume 11.4 fL (9.4-12.4)
[2018-06-04 02:42] LABS: Basophils % 1.2 %; Eosinophils # 0.1 K/mcL (0.0-0.6); Eosinophils % 3.6 %; Hematocrit 32.8 % (35.3-44.9); Hemoglobin 11.8 g/dL (11.5-15.4); Lymphocytes # 0.6 K/mcL (0.6-4.6); Lymphocytes % 34.3 %; Mean Corpuscular Hemoglobin 30.3 pg (28.0-33.3); Mean Corpuscular Volume 84.3 fL (83.0-100.0); Monocytes # 0.2 K/mcL (0.0-1.3); Monocytes % 9.5 %; Neutrophils # 0.9 K/mcL (1.6-8.9); Red Blood Count 3.89 M/mcL (3.82-4.97); Red Cell Distribution Width 16.9 % (11.5-14.5); Segmented Neutrophils % 51.4 %
[2018-06-04 02:46] LABS: INR 1.4; Prothrombin Time 15.9 Seconds (9.4-12.1)
[2018-06-04 02:47] LABS: Platelet Count 33 K/mcL (140-400)
[2018-06-04 02:49] LABS: Activated Partial Thrombo Time 35.5 Seconds (26.0-36.0)
[2018-06-04 03:01] LABS: Alanine Aminotransferase 20 Units/L (7-52); Albumin 2.8 g/dL (3.5-5.7); Albumin/Globulin Ratio 1.3 (1.1-2.2); Alkaline Phosphatase 92 Units/L (34-104); Aspartate Amino Transferase 32 Units/L (13-39); BUN/Creatinine Ratio 16 (6-26); Bilirubin,Total 2.8 mg/dL (0.3-1.0); Blood Urea Nitrogen 8 mg/dL (8-23); Calcium 8.7 mg/dL (8.6-10.3); Carbon Dioxide 27 mEq/L (23-29); Chloride 100 mEq/L (98-107); Chol/HDL Ratio 5.7 (0-4.9); Cholesterol 160 mg/dL (< 200); Globulin 2.2 g/dL (2.4-3.5); Glucose 354 mg/dL (70-105); HDL Cholesterol 28 mg/dL (40-59); LDL Cholesterol,Calculated 97 mg/dL (0-99); Magnesium 1.6 mg/dL (1.6-2.6); Osmolality,Calculated 295 (280-300); Potassium 3.8 mEq/L (3.5-5.1); Sodium 136 mEq/L (136-145); Triglycerides 176 mg/dL (< 150); eGFR For Non-African Americans > 60 (> 60)
[2018-06-04 03:09] LABS: Platelet Estimate Decreased (Normal)
--- NOTE | 2018-06-04 07:54 | Event Note ---
Date of Encounter: 06/04/18 Time of Encounter: 08:30 See full H&P by my colleague from earlier today for details. Reports 10-min episode of chest pain simila rto prio angina from few years ago. Slurred speech + word-finding difficulty was transient, nausea, fatigue. EKG showed sinus rhythm, TWI in III. Exam is unchanged from earlier today. No dysarthria,facial droop or focal deficit at this time. Nted glucose 234, started on insulin SS. Serial troponin negative. # Chest pain, Hx CAD/PCI, ACS ruled out # Slurred speech, transient # Cirrhosis/pancytopenia, varices - lorazapam for claustrophbia - increase activity to ambulate with assist - Echo, MRI brain, carotid duplex, cardiology evaluation pending
[2018-06-04 09:20] LABS: Estimated Average Glucose 275 mg/dl; Hemoglobin A1C 11.2 %
[2018-06-04] MEDS: cefTRIAXone 1,000 MG in Water for inj. (sterile) 20 ML 10 ML IVP SCH (10:03)
[2018-06-04] MEDS: Insulin LISPRO 300 UNITS/3 ML VIAL SQ SCH ×3 (10:03→17:36)
[2018-06-04] MEDS ORDERED: *HR* LORazepam 0.5 MG TABLET PO PRN (10:21)
--- NOTE | 2018-06-04 10:59 | Cardiology Consult Note ---
Date of Encounter: 06/04/18 Time of Encounter: 09:30 Assessment and Plan (1) Chest pain Current Visit: No Status: Acute Patient presents with atypical chest pain. ACS has been ruled out - negative troponin x3, no ischemic ECG changes. Further cardiac testing does not appear warranted and may even be contraindicated. 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 She is not on aspirin due to thrombocytopenia. Recommend primary team consider non-cardiac causes of her chest pain. As an outpatient, she was on metoprolol and isosorbide which have not been restarted as inpatient. Will restart at appropriate doses. No further recommendations at this time. Please call with questions. Qualifiers: Chest pain type: unspecified Qualified Code(s): R07.9 - Chest pain, unspecified Discussion w patient/family: The assessment and plan as outlined above was discussed with the patient and/or family members who expressed understanding and agreement. All questions were answered. Thank you for involving us in the care of your patient. Please call with any questions. History of Present Illness Consult date: 06/04/18 Requesting physician: Ayla Zheng Consult reason: Chest pain Chief complaint: Chest pain, weakness, slurred speech History of present illness: Ms. Morgan is a 63 year old female presenting with a constellation of symptoms including chest pain. At the bedside, the patient is slow in speech and responses. She states that her chest pain resolved but is now back. Describes it as left sided, nonradiating and not worse with inspiration. Her workup so far demonstrates no acute ECG changes and negative troponins x3. Medical history reviewed. Recently admitted in March 2018 with chest pain, non- ACS. Last LHC was March 2016 with 40% ISR mid LAD, 20% pLCx, 30% mid RCA, 80% small PDA not amenable to intervention. Stress test in January 2017 was negative for ischemia or infarct. Echo done in December demonstrated normal LVEF. Patient is not on aspirin due to profound thrombocytopenia and recurrent variceal bleeds requiring banding. Past Med Surg Social Fam HX - Past Medical History Attestation: Yes The following information was validated with the patient. Source: old records reviewed Medical history: cirrhosis, coronary artery disease, diabetes, fibromyalgia, GERD, hyperlipidemia, hypertension, liver disease, myocardial infarction, thyroid disease Additional medical history: estuardo spleen, sleep apnea, varices, stent x1 Psychiatric history: anxiety, depression, previous psychiatric hospitalization - Past Surgical History Surgical History: hysterectomy, other Additional surgical history: paracentesis. 04/21/18 PARACENTESIS @[facility] - Social History Smoking Status: Never smoker Smokeless Tobacco Status: No Alcohol use: none Drug use: none - Family History Mother Living Status: Cause of : Interstital lung disease Hx Family Cardiac Disorders: Yes (CAD) Hx Family Respiratory Disorders: Yes Hx Family Cancer: Yes Father Living Status: Age at : 41 Cause of : Heart attack Hx Family Cardiac Disorders: Yes Hx Family Endocrine Disorder: Yes Medications and Allergies LORazepam [Ativan] 0.5 mg PO DAILY PRN 12/31/15 [History] Lactulose 30 ml PO DAILY PRN 12/31/15 [History] Loratadine [Claritin] 10 mg PO DAILY 12/31/15 [History] Nitroglycerin [Nitrostat] 0.4 mg SL Q5M PRN 12/31/15 [History] Omeprazole [PriLOSEC] 40 mg PO BID 12/31/15 [History] metFORMIN [Glucophage] 1,000 mg PO BIDWM 12/31/15 [History] Rosuvastatin Calcium [Crestor] 20 mg PO HS 09/11/16 [History] Albuterol Sulfate [Ventolin Hfa] 2 puff IH Q4H PRN 01/31/17 [History] Fluticasone Propionate Nasal [Flonase] 1 spray NS DAILY PRN 01/31/17 [History] Fluticasone/Vilanterol [Breo Ellipta 100-25 Mcg INH] 1 puff IH DAILY 01/31/17 [ History] Gabapentin [Neurontin] 200 mg PO DAILY 01/31/17 [History] Ipratropium/Albuterol Neb [Duoneb] 3 ml IH Q6HR PRN 01/31/17 [History] Meclizine HCl [Verticalm] 25 mg PO DAILY PRN 01/31/17 [History] Multivitamin [One Daily Essential] 1 tab PO DAILY 01/31/17 [History] Metoprolol [Lopressor] 100 mg PO BID #60 tablet 03/17/17 [Rx] Bumetanide [Bumex] 1 mg PO DAILY 11/17/17 [History] Ondansetron [Zofran] 8 mg PO BID PRN 12/16/17 [History] Zolpidem [Ambien] 5 mg PO HS PRN 12/16/17 [History] Spironolactone [Aldactone] 100 mg PO BID 30 Days #60 tablet 12/19/17 [Rx] Isosorbide MONOnitrate (24 HR) [Imdur] 30 mg PO DAILY 03/09/18 [History] Insulin Regular, Human [Novolin R] See Protocol IJ ACHS 04/24/18 [History] Tizanidine HCl [Zanaflex] 2 mg PO DAILY 04/24/18 [History] 3 Allergy/AdvReac Type Severity Reaction Status Date / Time Hydroxychloroquine Allergy Hives Verified 06/03/18 18:09 [From Plaquenil] atorvastatin [From Lipitor] AdvReac Muscle Pain Verified 06/03/18 18:09 escitalopram [From Lexapro] AdvReac See Verified 06/03/18 18:09 Comments All Systems Review: The remainder of the systems were reviewed and are negative except as noted. - Cardiovascular Cardiovascular: as per HPI Physical Examination General: No Apparent Distress, Other (conversant, slow in mentation) HEENT: Atraumatic, Mucus Membranes Moist Neck: No JVD Cardiac: Reg Rate and Rhythm, Normal S1 and S2, Other (no significant murmur, no rub, no gallop) Lungs: Other (poor inspiratory effort, no audible rales wheeze or rhonchi) Neuro: Alert and responsive, No focal deficits noted Abdomen: Soft, Non-Tender, Other (distended abdomen, possible fluid wave, hypoactive BS) Extremities: Other (mild BLE edema) Results 06/04/18 02:26 06/04/18 02:26 Lab Results 06/04/18 06/04/18 06/04/18 02:26 02:26 02:26 WBC 1.7 L Hgb 11.8 Hct 32.8 L Plt Count 33 L INR 1.4 APTT 35.5 Sodium Potassium Chloride Carbon Dioxide BUN Creatinine Glucose Calcium Magnesium Total Bilirubin AST ALT Alkaline Phosphatase Troponin I < 0.03 06/04/18 06/04/18 02:26 08:32 WBC Hgb Hct Plt Count INR APTT Sodium 136 Potassium 3.8 Chloride 100 Carbon Dioxide 27 BUN 8 Creatinine 0.51 L Glucose 354 H Calcium 8.7 Magnesium 1.6 Total Bilirubin 2.8 H AST 32 ALT 20 Alkaline Phosphatase 92 Troponin I < 0.03 - Imaging and Cardiology Echo: report reviewed (December and March 2018) - EKG Interpretation EKG results cardiology: personally reviewed (06/03 ECG demonstrates NSR, possible limb lead misplacement, no acute findings), other (telemetry demonstrates average HR 83 bpm, no significant dysrhythmia or pause) Consult Discharge Plan - Plan Referrals: Anita Marc MD [Primary Care Provider] -
[2018-06-04] MEDS ORDERED: Insulin LISPRO 300 UNITS/3 ML VIAL SQ SCH (21:45)
[2018-06-05] MEDS: cefTRIAXone 1,000 MG in Water for inj. (sterile) 20 ML 10 ML IVP SCH (08:37)
[2018-06-05] MEDS: Insulin LISPRO 300 UNITS/3 ML VIAL SQ SCH ×3 (08:40→16:43)
[2018-06-05] MEDS ORDERED: Isosorbide MONOnitrate (24 HR) 30 MG TAB.ER.24H PO SCH (09:00)
--- NOTE | 2018-06-05 15:24 | Discharge Summary ---
- NOTES TO OUTPATIENT PROVIDER Notes to Outpatient Provider: PCP in 5 to 7 days. Date of Encounter: 06/05/18 Time of Encounter: 15:22 - Discharge Diagnosis (1) Chest pain Priority: Secondary Status: Acute Assessment and Plan: Trop neg x 3, ECG without ischemic changes. CXR neg for acute cardiopulmonary process. Seen by cardiology and no further testing recommended at this time. 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 She follows with Dr. Brambila and recently had a TIPPS shunt placed. No recent history of GI/variceal bleeding. (3) Slurred speech Priority: Primary Status: Acute Assessment and Plan: Likely due to hepatic encephalopathy. Pt is back at her baseline speech. Non-contrast CT Head CT/CT head/brain wo con IMPRESSION: No acute intra-cranial abnormality. MRI brain MR/MR head/brain wo con IMPRESSION: 1. No acute intracranial abnormality. Specifically, no acute infarction. 2. Sequela of minimal chronic microvascular ischemic changes, stable. Carotid duplex Impressions: Findings: Right carotid system is essentially normal. Findings: Left mid ICA has a moderate, 40-59% stenosis. Echo Impressions: LVEF 65%. Normal right ventricular structure and function. Mild tricuspid regurgitation. Borderline pulmonary hypertension by TR gradient. IVC not well visualized. No evidence of PFO with agitated saline contrast. (4) Type 2 diabetes mellitus Priority: Secondary Status: Chronic Qualifiers: Diabetes mellitus custodial insulin use: with custodial use Diabetes mellitus complication status: with circulatory complication Diabetes mellitus complication detail: with other circulatory complications Qualified Code(s): E11.59 - Type 2 diabetes mellitus with other circulatory complications; Z79.4 - residential (current) use of insulin (5) Sphenoid sinusitis Priority: Secondary Status: Acute Assessment and Plan: Augmentin 500mg BID for few more days Qualifiers: Chronicity: acute Recurrence: non-recurrent Qualified Code(s): J01.30 - Acute sphenoidal sinusitis, unspecified (6) DVT prophylaxis Priority: Secondary Status: Acute Hospital course: HPI summary Ms. Morgan is a 63 year old female who presented to the ER tonight with complaints of chest pain, dyspnea, and some diaphoresis. Additionally, she has had some slurred speech and some tingling in her hands for the last 5 days. She underwent workup in the ER, which was negative. However, given her comorbidities and prior history of heart disease, she was admitted to hospitalist service. Of note, she had a CT of the head which was negative but did show some sphenoid sinusitis. She also had a CT of the abdomen, which was negative except for confirmation of her cirrhosis. Slurred speech had resolved and was back to baseline per admitting physician. Symptoms likely due to hepatic encephalopathy as ammonia level was 105 on admission. Pt is back at her baseline Alert and oriented x 3. at bedside during my encounter. MRI brain today was negative for acute CVA. MRI brain MR/MR head/brain wo con IMPRESSION: 1. No acute intracranial abnormality. Specifically, no acute infarction. 2. Sequela of minimal chronic microvascular ischemic changes, stable. Discharge discussed with: patient, family, nurse - Time Spent with Patient Total time spent providing and/or coordinating discharge services: Greater than 30 minutes - Discharge Medications Home Medications: Albuterol Sulfate [Ventolin Hfa] 2 puff IH Q4H PRN 06/05/18 [History] Bumetanide [Bumex] 1 mg PO DAILY 06/05/18 [History] Fluticasone Propionate Nasal [Flonase] 1 spr NS DAILY PRN 06/05/18 [History] Fluticasone/Vilanterol [Breo Ellipta 100-25 Mcg INH] 1 puff IH DAILY 06/05/18 [ History] Gabapentin [Neurontin] 300 mg PO HS 06/05/18 [History] Insulin NPH Human Isophane [Novolin N] 60 unit SQ BID 06/05/18 [History] Insulin Regular, Human [Novolin R] 10 - 55 unit SQ TIDWM 06/05/18 [History] Ipratropium/Albuterol Neb [Duoneb] 3 ml IH Q6HR PRN 06/05/18 [History] Isosorbide MONOnitrate (24 HR) [Imdur] 90 mg PO DAILY 06/05/18 [History] LORazepam [Ativan] 0.5 mg PO Q8H PRN 06/05/18 [History] Loratadine [Claritin] 10 mg PO DAILY 06/05/18 [History] Meclizine HCl [Verticalm] 25 mg PO DAILY PRN 06/05/18 [History] Metoprolol [Lopressor] 100 mg PO DAILY 06/05/18 [History] Multivitamin [One Daily Multivitamin] 1 tab PO DAILY 06/05/18 [History] Rosuvastatin [Crestor] 20 mg PO HS 06/05/18 [History] Spironolactone [Aldactone] 50 mg PO DAILY 06/05/18 [History] Zolpidem [Ambien] 5 mg PO HS PRN 06/05/18 [History] metFORMIN [Glucophage] 500 mg PO BIDWM 06/05/18 [History] raNITIdine HCl [Zantac] 150 mg PO HS 06/05/18 [History] Allergies/Adverse Reactions: 3 Allergy/AdvReac Type Severity Reaction Status Date / Time Hydroxychloroquine Allergy Hives Verified 06/03/18 18:09 [From Plaquenil] atorvastatin [From Lipitor] AdvReac Muscle Pain Verified 06/03/18 18:09 escitalopram [From Lexapro] AdvReac See Verified 06/03/18 18:09 Comments Date of admission: 06/03/18 21:35 Primary care physician: Anita Marc MD Consults: 06/04/18 01:39 Consult to Speech Therapy [CONS] Routine Comment: Evaluate, develop and implement POC Reason for Consult: slurred speech -- resolved Call Completed: No 06/04/18 01:44 Consult to Physician [CONS] Routine Consulting Provider: Teagan Leroy Reason for Consult: recurrent chest pain; CAD; failed conservative management since March. Call Completed: No 06/05/18 11:05 Consult to Occupational Therapy [CONS] Routine Comment: Evaluate, develop and implement POC Reason for Consult: CVA rule out Does patient have active BEDREST order?: No Is patient medically & hemodynamically stable?: Yes Consult to Physical Therapy [CONS] Routine Comment: Evaluate, develop and implement POC Reason for Consult: CVA workup Does patient have active BEDREST order?: No Is patient medically & hemodynamically stable?: Yes Discharging clinician: Adriana Baldwin Anticipated date of discharge: 06/05/18 - Constitutional Vitals: Temp Pulse Resp BP Pulse Ox 97.8 F 74 15 136/52 97 06/05/18 07:01 06/05/18 07:01 06/05/18 07:01 06/05/18 07:01 06/05/18 07:01 General appearance: Present: cooperative, A&O X 3, pleasant, no acute distress, answers questions appropriately Exam: speech minimally slurred -- patient reports this is her baseline - Patient Status Disposition: Home, Self-Care Condition: Good Overall status at discharge: patient is back to baseline - Discharge Instructions Instructions: Chest Pain (DC), Cirrhosis (GEN), Diabetes Mellitus Type 2 in Adults (DC), Chronic Hypertension (DC), Anemia (GEN) Follow Up With: Anita Marc MD [Primary Care Provider] - - Diet and Activity Activity: increase activity as tolerated Diet: advance to your usual diet - VTE Documentation of Mechanical Device: Intermittent pneumatic compression device
[2018-06-05 15:39] VITALS: BP 139/69
--- NOTE | 2018-06-05 18:16 | Electrocardiograph Report ---
[place] [id number] Test Date: 2018-06-03 Pat Name: Odalis Morgan Department: [facility]AM[facility] Gender[facility] F Maintenance Service Technician: : [id number] Requested By: Hector Wisdom Order Number: [id number] Reading MD: Kavin Workman Measurements Intervals [place] Rate: 91 P: 53 WI: 162 QRS: 91 QRSD: 95 T: 12 QT: 384 QTc: 473 Interpretive Statements Sinus rhythm Right axis deviation Electronically Signed On 06-05-2018 18:15:12 EDT by Kavin Workman
[2018-06-06] MEDS ORDERED: Amoxicillin/Clavulanate 500 MG TABLET PO SCH (17:00)
== END 2018-06-05 17:38 | disposition home or self-care (01) ==
LOC: EMEROOARM 17:54 → 2NENU 17:54
PROVIDERS: ADMIT Pediatrics; ATTEND Pediatrics

== ENCOUNTER 2018-07-01 17:42 | Inpatient (IN) ==
[2018-07-01] MEDS ORDERED: Lactulose Oral Soln 20 GM/30 ML UDC PO ONE (18:06)
[2018-07-01 18:33] LABS: Bilirubin,Urine Negative (Negative); Blood,Urine Negative (Negative); Clarity,Urine Clear (Clear); Color,Urine Yellow (Yellow); Glucose,Urine (UA) 500 mg/dL (Normal); Ketones,Urine Trace mg/dL (Negative); Leukocyte Esterase,Urine Trace (Negative); Nitrite,Urine Negative (Negative); Protein,Urine Trace mg/dL (Neg-Trace); Specific Gravity,Urine 1.008 (1.010-1.025)
[2018-07-01 18:35] LABS: Bacteria,Urine None Seen per hpf (None-Few); Hyaline Casts,Urine None Seen per lpf (None-Few); Squamous Epithelial Cell,Urine Many per lpf (None-Few)
--- NOTE | 2018-07-01 18:44 | Emergency Department Note ---
Disposition Clinical Impression: Confusion, Bizarre behavior, Hepatic encephalopathy Disposition: Admitted As Inpatient Condition: Good Forms: ED Satisfaction Letter General Adult HPI - General Chief complaint: ED Altered Mental Status Stated complaint: Confusion Time Seen by Provider: 07/01/18 17:51 Source: family Limitations: altered mental status Nursing Notes Reviewed: Yes Vital Signs Reviewed: Yes - History of Present Illness HPI Narrative: Patient presents to the emergency department today by private vehicle with for evaluation of altered mental status. Patient has significant history including cirrhosis with esophageal varices. Patient also has diabetes , heart disease, hypertension, hyperlipidemia. Recent teeth TIPS procedure. The patient has been diagnosed with hepatic encephalopathy in the past. Was recently discharged from outside hospital on lactulose but has not been taking on a regular basis. Last night had abnormal behavior which included sleeping and weird positions in the bed. At one point she bit her while sleeping. The patient had continued bizarre behavior through the day however the gave her lactulose and her symptoms have improved. Patient states she feels significantly better but she states she still feels somewhat off. Pain Scale: 0 - Related Data Home Medications Medication Instructions Recorded Confirmed Albuterol Sulfate [Ventolin Hfa] 2 puff IH Q4H PRN 06/05/18 06/05/18 Bumetanide [Bumex] 1 mg PO DAILY 06/05/18 06/05/18 Fluticasone Propionate Nasal 1 spr NS DAILY PRN 06/05/18 06/05/18 [Flonase] Fluticasone/Vilanterol [Breo 1 puff IH DAILY 06/05/18 06/05/18 Ellipta 100-25 Mcg INH] Gabapentin [Neurontin] 300 mg PO HS 06/05/18 06/05/18 Insulin NPH Human Isophane 60 unit SQ BID 06/05/18 06/05/18 [Novolin N] Insulin Regular, Human [Novolin R] 10 - 55 unit SQ TIDWM 06/05/18 06/05/18 Ipratropium/Albuterol Neb [Duoneb] 3 ml IH Q6HR PRN 06/05/18 06/05/18 Isosorbide MONOnitrate (24 HR) 90 mg PO DAILY 06/05/18 06/05/18 [Imdur] LORazepam [Ativan] 0.5 mg PO Q8H PRN 06/05/18 06/05/18 Loratadine [Claritin] 10 mg PO DAILY 06/05/18 06/05/18 Meclizine HCl [Verticalm] 25 mg PO DAILY PRN 06/05/18 06/05/18 Metoprolol [Lopressor] 100 mg PO DAILY 06/05/18 06/05/18 Multivitamin [One Daily 1 tab PO DAILY 06/05/18 06/05/18 Multivitamin] Rosuvastatin [Crestor] 20 mg PO HS 06/05/18 06/05/18 Spironolactone [Aldactone] 50 mg PO DAILY 06/05/18 06/05/18 Zolpidem [Ambien] 5 mg PO HS PRN 06/05/18 06/05/18 metFORMIN [Glucophage] 500 mg PO BIDWM 06/05/18 06/05/18 raNITIdine HCl [Zantac] 150 mg PO HS 06/05/18 06/05/18 Previous Rx's Medication Instructions Recorded Amoxicillin/Clavulanate [Augmentin] 500 mg PO BIDWM #7 tablet 06/05/18 Allergies Allergy/AdvReac Type Severity Reaction Status Date / Time Hydroxychloroquine Allergy Hives Verified 06/03/18 18:09 [From Plaquenil] atorvastatin [From Lipitor] AdvReac Muscle Pain Verified 06/03/18 18:09 escitalopram [From Lexapro] AdvReac See Verified 06/03/18 18:09 Comments Review of Systems: CONSTITUTIONAL: No weight loss, fever, chills, weakness or fatigue. HEENT: Eyes: No visual changes. Ears, Nose, Throat: No hearing loss, difficulty talking or unable to swallow. SKIN: No rash or itching. CARDIOVASCULAR: No chest pain, chest pressure or chest discomfort. No palpitations or edema. RESPIRATORY: No shortness of breath, cough or sputum. GASTROINTESTINAL: No anorexia, nausea, vomiting or diarrhea. No abdominal pain or blood. GENITOURINARY: No burning on urination or hematuria. NEUROLOGICAL: Confusion No headache, dizziness, syncope, paralysis, ataxia, numbness or tingling in the extremities. No change in bowel or bladder control. MUSCULOSKELETAL: No muscle pain, back pain, joint pain or stiffness. Past Medical History - Past Medical History Medical history: Reports: cirrhosis, coronary artery disease, diabetes, fibromyalgia, GERD, hyperlipidemia, hypertension, liver disease, myocardial infarction, thyroid disease, other Surgical history: Reports: hysterectomy, other Psychiatric history: Reports: anxiety, depression, previous psychiatric hospitalization - Social History Smoking Status: Never smoker Smokeless Tobacco Status: No Alcohol use: Reports: none Drug use: Reports: none Physical Exam General: Well appearing, nontoxic, no acute distress Head: Normocephalic Atraumatic Eyes: PERRL, EOMI ENT: Airway patent, no stridor Neck: supple, no meningismus Chest: Lungs clear to auscultation bilateral Cardiac: Regular rate and rhythm, no murmurs, rubs or gallops Abdomen: soft, nontender, nondistended; no guarding, rebound, or tenderness to percussion Musculoskeletal: Calves symmetric, nontender, no significant pitting edema Skin: No rash, normal skin tone Neuro: Alert and Oriented to person, place, and time; No focal deficit, CN 2-12 symmetric and intact except for left-sided facial droop which is minimal and related to having this and previous evaluations. This apparently comes and goes and has been present for greater than 12 hours. - General Limitations: altered mental status General appearance: alert Course - Reevaluation(s) Reevaluation #1: Patient with relatively minor symptoms. She does not have any marked disorientation or inability to follow commands or significant lethargy. Do think patient would qualify for increased lactulose dosing as she is not having bowel movements with her current lactulose regimen that she states she is taking on a regular basis. Family and her very uncomfortable with this as her bizarre behavior they feel puts her and her family in harm's way. She has been educated about increasing lactulose doses as well as her overall lactulose level. Blood work is otherwise at her baseline. Family states they would be much more comfortable if they were able to stay in the hospital under observation. - Consultations Consultation #1: Discussed with Dr. Wisdom. The patient does have esophageal varices. He is going to verify GI coverage. I do not believe the patient is at increased risk from her baseline risk for GI bleeding at this time she is not had any nausea or vomiting. She is a candidate for outpatient management as this was my initial recommendation to the patient and I think hospital observation at this hospital is likely appropriate. Patient does develop GI bleeding she can be transferred for further evaluation and treatment. Vital Signs Temperature 98.1 F 07/01/18 17:46 Pulse Rate 98 07/01/18 17:46 Respiratory Rate 16 07/01/18 17:46 Blood Pressure 154/76 07/01/18 17:46 O2 Sat by Pulse Oximetry 98 07/01/18 17:46 Temperature 98.1 F 07/01/18 18:26 Pulse Rate 100 07/01/18 20:00 Respiratory Rate 19 07/01/18 20:00 Blood Pressure 143/63 07/01/18 20:00 O2 Sat by Pulse Oximetry 98 07/01/18 20:00 Oxygen Delivery Oxygen Delivery Room Air Medical Decision Making - Lab Data Lab results reviewed: Yes I reviewed the patient's lab results. Result diagrams: 07/01/18 18:05 07/01/18 18:05 Lab Results 07/01/18 07/01/18 07/01/18 Range/Units 18:05 18:05 18:05 WBC 2.8 L (4.3-11.1) K/mcL RBC 4.08 (3.82-4.97) M/mcL Hgb 13.0 (11.5-15.4) g/dL Hct 36.2 (35.3-44.9) % MCV 88.7 (83.0-100.0) fL MCH 31.9 (28.0-33.3) pg MCHC 35.9 H (31.6-35.5) g/dL RDW 17.2 H (11.5-14.5) % Plt Count 41 L (140-400) K/mcL MPV 10.0 (9.4-12.4) fL Immature Gran % 0.0 (0-4) % Seg Neutrophils % 68.5 % Lymphocytes % 20.4 % Monocytes % 7.9 % Eosinophils % 2.5 % Basophils % 0.7 % Neutrophils # 1.9 (1.6-8.9) K/mcL Lymphocytes # 0.6 (0.6-4.6) K/mcL Monocytes # 0.2 (0.0-1.3) K/mcL Eosinophils # 0.1 (0.0-0.6) K/mcL Basophils # 0.0 (0.0-0.2) K/mcL Immature Plt Fraction 5.1 (1.1-6.1) % PT 13.3 H (9.4-12.1) Seconds INR 1.2 Sodium 142 (136-145) mEq/L Potassium 3.9 (3.5-5.1) mEq/L Chloride 108 H (98-107) mEq/L Carbon Dioxide 25 (23-29) mEq/L BUN 16 (8-23) mg/dL Creatinine 0.59 L (0.60-1.20) mg/dL Est GFR ( Amer) > 60 (> 60) Est GFR (Non-Af Amer) > 60 (> 60) BUN/Creatinine Ratio 27 H (6-26) Glucose 235 H (70-105) mg/dL Calculated Osmolality 303 H (280-300) Calcium 10.2 (8.6-10.3) mg/dL Total Bilirubin 3.1 H (0.3-1.0) mg/dL Direct Bilirubin 0.8 H (0.0-0.2) mg/dL Indirect Bilirubin 2.3 H (0.0-1.2) mg/dL AST 45 H (13-39) Units/L ALT 37 (7-52) Units/L Alkaline Phosphatase 152 H (34-104) Units/L Ammonia (16-53) mcmol/L Troponin I < 0.03 (< 0.04) ng/mL Serum Total Protein 6.4 (6.4-8.9) g/dL Albumin 3.8 (3.5-5.7) g/dL Globulin 2.6 (2.4-3.5) g/dL Albumin/Globulin Ratio 1.5 (1.1-2.2) Urine Color (Yellow) Urine Clarity (Clear) Urine pH (5.0-8.0) pH Units Ur Specific [place] (1.010-1.025) Urine Protein (Neg-Trace) mg/dL Urine Glucose (UA) (Normal) mg/dL Urine Ketones (Negative) mg/dL Urine Blood (Negative) Urine Nitrite (Negative) Urine Bilirubin (Negative) Urine Urobilinogen (Normal) mg/dL Ur Leukocyte Esterase (Negative) Urine Microscopic RBC (0-3) per hpf Urine Microscopic WBC (0-3) per hpf Ur Squamous Epith Cells (None-Few) per lpf Urine Bacteria (None-Few) per hpf Hyaline Casts (None-Few) per lpf Ur Culture Indicated? (NO) Ethyl Alcohol < 10 (Less than 10) mg/dL 07/01/18 07/01/18 Range/Units 18:19 18:35 WBC (4.3-11.1) K/mcL RBC (3.82-4.97) M/mcL Hgb (11.5-15.4) g/dL Hct (35.3-44.9) % MCV (83.0-100.0) fL MCH (28.0-33.3) pg MCHC (31.6-35.5) g/dL RDW (11.5-14.5) % Plt Count (140-400) K/mcL MPV (9.4-12.4) fL Immature Gran % (0-4) % Seg Neutrophils % % Lymphocytes % % Monocytes % % Eosinophils % % Basophils % % Neutrophils # (1.6-8.9) K/mcL Lymphocytes # (0.6-4.6) K/mcL Monocytes # (0.0-1.3) K/mcL Eosinophils # (0.0-0.6) K/mcL Basophils # (0.0-0.2) K/mcL Immature Plt Fraction (1.1-6.1) % PT (9.4-12.1) Seconds INR Sodium (136-145) mEq/L Potassium (3.5-5.1) mEq/L Chloride (98-107) mEq/L Carbon Dioxide (23-29) mEq/L BUN (8-23) mg/dL Creatinine (0.60-1.20) mg/dL Est GFR ( Amer) (> 60) Est GFR (Non-Af Amer) (> 60) BUN/Creatinine Ratio (6-26) Glucose (70-105) mg/dL Calculated Osmolality (280-300) Calcium (8.6-10.3) mg/dL Total Bilirubin (0.3-1.0) mg/dL Direct Bilirubin (0.0-0.2) mg/dL Indirect Bilirubin (0.0-1.2) mg/dL AST (13-39) Units/L ALT (7-52) Units/L Alkaline Phosphatase (34-104) Units/L Ammonia 89 H (16-53) mcmol/L Troponin I (< 0.04) ng/mL Serum Total Protein (6.4-8.9) g/dL Albumin (3.5-5.7) g/dL Globulin (2.4-3.5) g/dL Albumin/Globulin Ratio (1.1-2.2) Urine Color Yellow (Yellow) Urine Clarity Clear (Clear) Urine pH 6.0 (5.0-8.0) pH Units Ur Specific [place] 1.008 L (1.010-1.025) Urine Protein Trace (Neg-Trace) mg/dL Urine Glucose (UA) 500 H (Normal) mg/dL Urine Ketones Trace H (Negative) mg/dL Urine Blood Negative (Negative) Urine Nitrite Negative (Negative) Urine Bilirubin Negative (Negative) Urine Urobilinogen 4.0 H (Normal) mg/dL Ur Leukocyte Esterase Trace H (Negative) Urine Microscopic RBC 5-15 H (0-3) per hpf Urine Microscopic WBC 5-15 H (0-3) per hpf Ur Squamous Epith Cells Many H (None-Few) per lpf Urine Bacteria None Seen (None-Few) per hpf Hyaline Casts None Seen (None-Few) per lpf Ur Culture Indicated? NO. A (NO) Ethyl Alcohol (Less than 10) mg/dL - Radiology Data Radiology results reviewed: Yes I reviewed the patient's radiology results. - EKG Data EKG #1 EKG attestation: Yes I reviewed and interpreted this EKG. EKG results narrative: EKG shows sinus rhythm with ventricular rate of 99. [place] interval 170. QRS 88. QTC 48 2. Patient has no significant ST elevations or depressions. No old EKG for comparison.
[2018-07-01 18:49] LABS: Eosinophils % 2.5 %; Hematocrit 36.2 % (35.3-44.9); Mean Corpuscular HGB Conc 35.9 g/dL (31.6-35.5); Mean Corpuscular Hemoglobin 31.9 pg (28.0-33.3); Red Cell Distribution Width 17.2 % (11.5-14.5)
[2018-07-01 18:51] LABS: Basophils % 0.7 %; Eosinophils # 0.1 K/mcL (0.0-0.6); Immature Platelets 5.1 % (1.1-6.1); Lymphocytes # 0.6 K/mcL (0.6-4.6); Lymphocytes % 20.4 %; Mean Corpuscular Volume 88.7 fL (83.0-100.0); Monocytes # 0.2 K/mcL (0.0-1.3); Monocytes % 7.9 %; Neutrophils # 1.9 K/mcL (1.6-8.9); Platelet Count 41 K/mcL (140-400); Red Blood Count 4.08 M/mcL (3.82-4.97); Segmented Neutrophils % 68.5 %
[2018-07-01 18:56] LABS: INR 1.2; Prothrombin Time 13.3 Seconds (9.4-12.1)
[2018-07-01 19:11] LABS: Alanine Aminotransferase 37 Units/L (7-52); Albumin 3.8 g/dL (3.5-5.7); Albumin/Globulin Ratio 1.5 (1.1-2.2); Alkaline Phosphatase 152 Units/L (34-104); Aspartate Amino Transferase 45 Units/L (13-39); BUN/Creatinine Ratio 27 (6-26); Bilirubin,Direct 0.8 mg/dL (0.0-0.2); Bilirubin,Indirect 2.3 mg/dL (0.0-1.2); Bilirubin,Total 3.1 mg/dL (0.3-1.0); Blood Urea Nitrogen 16 mg/dL (8-23); Calcium 10.2 mg/dL (8.6-10.3); Carbon Dioxide 25 mEq/L (23-29); Chloride 108 mEq/L (98-107); Ethanol < 10 mg/dL (Less than 10); Globulin 2.6 g/dL (2.4-3.5); Glucose 235 mg/dL (70-105); Osmolality,Calculated 303 (280-300); Potassium 3.9 mEq/L (3.5-5.1); Sodium 142 mEq/L (136-145); Total Protein 6.4 g/dL (6.4-8.9); Troponin I < 0.03 ng/mL (< 0.04); eGFR For Non-African Americans > 60 (> 60)
[2018-07-01] MEDS ORDERED: Dextrose Gel 15 GM/37.5 ML TUBE PO PRN ×2 (21:36)
[2018-07-01] MEDS ORDERED: *HR* Dextrose 50 % in Water (Syg) 50 ML SYRINGE IVP PRN (21:36)
[2018-07-01] MEDS ORDERED: Naloxone 0.4 MG/ML INJ IVP PRN (21:36)
[2018-07-01] MEDS ORDERED: D5% in Water 1,000 ML IVC PRN (21:36)
[2018-07-01] MEDS ORDERED: Insulin LISPRO 300 UNITS/3 ML VIAL SQ SCH (21:45)
--- NOTE | 2018-07-01 22:16 | Internal Med History&Physical ---
Date of Encounter: 07/01/18 Time of Encounter: 20:50 Internal Medicine - H&P: HPI Chief complaint: altered mental status Admitted From: Emergency Dept Plans for Post Hospital Care: Home History of present illness: Ms. Morgan is a 63 year old female who presents here for concerns of confusion , weakness, sleepiness, and family concerns. She has a history of SIMON cirrhosis and recently had a TIPS procedure performed. She now presents with the above symptoms which have been going on for about 24-48 hours. Last night, she bit her on the abdomen, and she was somewhat combative and very confused last night. Her family brought her into the ER today and she had workup performed, which revealed an ammonia level that is quite elevated. She did take her lactulose prior to coming here and she feels almost back to baseline. However, her states her mental status is better but still far off her baseline. She also complains of some dysuria, urgency, and concentrated urine over last 24-48 hours. She and her deny any fevers but she has had some chills and some nausea as well. As such she will be admitted to hospitalist service for ongoing care and possible treatment of UTI. Her urinalysis is not that remarkable for UTI. However, given her symptoms, I 'm going to treat her empirically until urine cultures are resulted. She and her deny any history of GI bleeding. She has known varices that were banded about 18 months ago. She is due to have surveillance endoscopy in the near future for her varices. However, there has been no history of bleeding, specifically hematemesis. Past Med Surg Social Fam HX - Past Medical History Attestation: Yes The following information was validated with the patient. Source: patient, old records reviewed, obtained from family Medical history: cirrhosis, coronary artery disease, diabetes, fibromyalgia, GERD, hyperlipidemia, hypertension, liver disease, myocardial infarction, thyroid disease Additional medical history: estuardo spleen, sleep apnea, varices, stent x1 Psychiatric history: anxiety, depression, previous psychiatric hospitalization - Past Surgical History Surgical History: hysterectomy, other (TIPS) Additional surgical history: paracentesis. 04/21/18 PARACENTESIS @[facility] - Social History Smoking Status: Never smoker Smokeless Tobacco Status: No Alcohol use: none Drug use: none Current living situation: Home, With Family Activity Level: Independent ambulation Recent Out of Country Travel Within the Last 8 Weeks: No - Family History Mother Living Status: Hx Family Cardiac Disorders: Yes (CAD) Hx Family Respiratory Disorders: Yes Hx Family Cancer: Yes Father Living Status: Hx Family Cardiac Disorders: Yes Hx Family Endocrine Disorder: Yes - Additional Family History Additional family history: all siblings except one have cirrhosis Internal Medicine - H&P: Meds Albuterol Sulfate [Ventolin Hfa] 2 puff IH Q4H PRN 06/05/18 [History] Amoxicillin/Clavulanate [Augmentin] 500 mg PO BIDWM #7 tablet 06/05/18 [Rx] Bumetanide [Bumex] 1 mg PO DAILY 06/05/18 [History] Fluticasone Propionate Nasal [Flonase] 1 spr NS DAILY PRN 06/05/18 [History] Fluticasone/Vilanterol [Breo Ellipta 100-25 Mcg INH] 1 puff IH DAILY 06/05/18 [ History] Gabapentin [Neurontin] 300 mg PO HS 06/05/18 [History] Insulin NPH Human Isophane [Novolin N] 60 unit SQ BID 06/05/18 [History] Insulin Regular, Human [Novolin R] 10 - 55 unit SQ TIDWM 06/05/18 [History] Ipratropium/Albuterol Neb [Duoneb] 3 ml IH Q6HR PRN 06/05/18 [History] Isosorbide MONOnitrate (24 HR) [Imdur] 90 mg PO DAILY 06/05/18 [History] LORazepam [Ativan] 0.5 mg PO Q8H PRN 06/05/18 [History] Loratadine [Claritin] 10 mg PO DAILY 06/05/18 [History] Meclizine HCl [Verticalm] 25 mg PO DAILY PRN 06/05/18 [History] Metoprolol [Lopressor] 100 mg PO DAILY 06/05/18 [History] Multivitamin [One Daily Multivitamin] 1 tab PO DAILY 06/05/18 [History] Rosuvastatin [Crestor] 20 mg PO HS 06/05/18 [History] Spironolactone [Aldactone] 50 mg PO DAILY 06/05/18 [History] Zolpidem [Ambien] 5 mg PO HS PRN 06/05/18 [History] metFORMIN [Glucophage] 500 mg PO BIDWM 06/05/18 [History] raNITIdine HCl [Zantac] 150 mg PO HS 06/05/18 [History] 3 Allergy/AdvReac Type Severity Reaction Status Date / Time Hydroxychloroquine Allergy Hives Verified 06/03/18 18:09 [From Plaquenil] atorvastatin [From Lipitor] AdvReac Muscle Pain Verified 06/03/18 18:09 escitalopram [From Lexapro] AdvReac See Verified 06/03/18 18:09 Comments - Constitutional Constitutional: chills, no fever(s), no night sweats - EENT Eyes: no blurry vision, no change in vision Ears: no ear pain, no tinnitus Nose, mouth and throat: no nasal congestion, no sinus pressure, no sore throat - Cardiovascular Cardiovascular ROS IM: no chest pain, no dyspnea, no dyspnea on exertion, no edema - Respiratory Respiratory: no cough, no hemoptysis, no chest congestion, no excessive phlegm production, no change in phlegm color - Gastrointestinal Gastrointestinal: heartburn, nausea, no abdominal pain, no coffee ground emesis , no diarrhea, no hematemesis, no hematochezia, no melena, no vomiting - Genitourinary Genitourinary: dysuria, hematuria, urinary urgency, no flank pain - Musculoskeletal Musculoskeletal ROS IM: no arthralgias, no back pain - Integumentary Integumentary IM: no rash, no jaundice - Neurological Neurological ROS: confusion, no dizziness, no focal weakness, no frequent falls , no headache(s) - Psychiatric Psychiatric: behavioral changes, no anxiety, no depression - Endocrine Endocrine IM: no polydipsia, no polyuria - Hematologic/Lymphatic Hematologic/Lymphatic: easy bruising, no lymphadenopathy - Allergic/Immunologic Allergic/Immunologic: wheezing, GI upset with certain foods - Constitutional Vitals: Temp Pulse Resp BP Pulse Ox 98.8 F 89 15 144/79 99 07/01/18 21:40 07/01/18 21:40 07/01/18 21:40 07/01/18 21:40 07/01/18 21:40 General appearance: Present: cooperative, A&O X 2, pleasant, no acute distress, answers questions appropriately Exam: a little somnolent but easily arousable - Head Head exam: Present: atraumatic, normal inspection - Eye Eye exam: Present: EOMI, PERRL. Absent: scleral icterus Pupils: Present: normal accommodation - ENT ENT exam: Present: mucous membranes dry, normal exam, normal oropharynx - Neck Neck exam general surgery: Present: full ROM, supple. Absent: tenderness, nuchal rigidity, thyromegaly - Respiratory Respiratory exam: Present: CTAB. Absent: chest wall tenderness, rales, respiratory distress, rhonchi, wheezes - Cardiovascular Cardiovascular exam: Present: distant heart sounds, RRR, +S1, +S2. Absent: diastolic murmur, systolic murmur, tachycardia - GI/Abdominal GI/Abdominal exam: Present: normal bowel sounds, soft, no peritoneal signs. Absent: guarding, rebound, tenderness - Extremities Exam Extremities exam: Present: full ROM, normal capillary refill, warm, radial pulses palpable and symmetrical. Absent: calf tenderness, joint swelling, tenderness - Back Exam Back exam: Absent: CVA tenderness (L), CVA tenderness (R) - Neurological Exam Neurological exam: Present: alert, altered (slightly), CN II-XII intact, no focal deficits, strengths equal and symetr throughout. Absent: oriented X3 (x2 ; sleepy but easily arousable) - Psychiatric Psychiatric exam: Present: normal affect, normal mood - Skin Skin exam: Present: dry, intact, warm Internal Med - H&P Results - Labs CBC & Chem 7: 07/01/18 18:05 07/01/18 18:05 - Diagnostic Studies Chest x-ray Status: image reviewed by me (negative) - Assessment and plan (1) Hepatic encephalopathy Current Visit: Yes Status: Acute Assessment and plan: 1. Will schedule Lactulose and monitor clinically. 2. Will trend ammonia levels. 3. Treat suspected UTI as this may be culprit for encephalopathy. (2) UTI (urinary tract infection) Current Visit: Yes Status: Suspected Assessment and plan: 1. Urine culture ordered. 2. Will treat with Rocephin and monitor clinical symptoms and follow culture. Qualifiers: Urinary tract infection type: acute cystitis Hematuria presence: with hematuria Qualified Code(s): N30.01 - Acute cystitis with hematuria (3) Type 2 diabetes mellitus Current Visit: Yes Status: Chronic Assessment and plan: 1. Hold oral home meds. 2. Monitor glucose and treat with SSI for now. 3. Resume home basal insulin when medications verified. 4. Adjust insulin as needed per glucose readings. 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 EPCD's.
[2018-07-01] MEDS: cefTRIAXone 1,000 MG in Water for inj. (sterile) 20 ML 10 ML IVP SCH (23:14)
[2018-07-02] MEDS: Ipratropium/Albuterol Neb 3 ML IH SCH ×7 (00:55→23:07)
[2018-07-02] MEDS: Ibuprofen 400 MG TABLET PO PRN ×2 (02:20→23:03)
[2018-07-02] MEDS: Lactulose Oral Soln 20 GM/30 ML UDC PO SCH ×3 (07:42→21:02)
[2018-07-02] MEDS: Insulin LISPRO 300 UNITS/3 ML VIAL SQ SCH ×5 (07:42→21:11)
[2018-07-02 07:46] LABS: INR 1.2; Prothrombin Time 13.4 Seconds (9.4-12.1)
[2018-07-02 07:49] LABS: Activated Partial Thrombo Time 33.5 Seconds (26.0-36.0)
[2018-07-02 08:04] LABS: Alanine Aminotransferase 34 Units/L (7-52); Albumin 3.4 g/dL (3.5-5.7); Albumin/Globulin Ratio 1.4 (1.1-2.2); Alkaline Phosphatase 135 Units/L (34-104); Aspartate Amino Transferase 41 Units/L (13-39); BUN/Creatinine Ratio 26 (6-26); Bilirubin,Total 2.3 mg/dL (0.3-1.0); Blood Urea Nitrogen 18 mg/dL (8-23); Calcium 9.5 mg/dL (8.6-10.3); Carbon Dioxide 23 mEq/L (23-29); Chloride 104 mEq/L (98-107); Globulin 2.5 g/dL (2.4-3.5); Glucose 339 mg/dL (70-105); Magnesium 1.7 mg/dL (1.6-2.6); Osmolality,Calculated 299 (280-300); Potassium 3.4 mEq/L (3.5-5.1); Sodium 137 mEq/L (136-145); Total Protein 5.9 g/dL (6.4-8.9); eGFR For Non-African Americans > 60 (> 60)
[2018-07-02 09:39] LABS: Eosinophils % 1.1 %; Immature Granulocytes % 0.4 % (0-4)
[2018-07-02 09:41] LABS: Basophils % 0.7 %; Hemoglobin 11.5 g/dL (11.5-15.4); Lymphocytes # 0.5 K/mcL (0.6-4.6); Lymphocytes % 17.5 %; Mean Corpuscular HGB Conc 34.8 g/dL (31.6-35.5); Mean Corpuscular Hemoglobin 31.9 pg (28.0-33.3); Mean Corpuscular Volume 91.4 fL (83.0-100.0); Mean Platelet Volume 10.4 fL (9.4-12.4); Monocytes # 0.2 K/mcL (0.0-1.3); Monocytes % 8.9 %; Neutrophils # 1.9 K/mcL (1.6-8.9); Red Blood Count 3.61 M/mcL (3.82-4.97); Red Cell Distribution Width 17.2 % (11.5-14.5); Segmented Neutrophils % 71.4 %
[2018-07-02 09:43] LABS: Platelet Count 36 K/mcL (140-400)
[2018-07-02 10:59] LABS: Estimated Average Glucose 194 mg/dl; Hemoglobin A1C 8.4 %
--- NOTE | 2018-07-02 13:50 | Internal Med Progress Note ---
Hospitalist Progress Note - Encounter Date of Encounter: 07/02/18 Time of Encounter: 09:45 - Subjective Interval History: Patient is feeling somewhat better today. She is more awake and alert. Complaints of abdominal bloating. No nausea or vomiting. Denies any dysuria or hematuria. She reports that she has been taking her lactulose as prescribed but did not have any bowel movement since Tuesday. - Exam Vitals: Temp Pulse Resp BP Pulse Ox 98.6 F 103 17 153/74 97 07/02/18 12:03 07/02/18 12:03 07/02/18 12:03 07/02/18 12:03 07/02/18 12:03 Exam: General: Patient is alert, no acute distress, oriented x 3 Respiratory: Good respiratory effort. Normal breath sounds. No wheezing or crackles. Cardiovascular: Regular rate and rhythm. s1 and s2 normal No clicks, rubs, gallops, or murmurs. No pedal edema Abdomen: Abdomen is soft, distended nontender. Bowel sounds are present Musculoskeletal: Spontaneously moving all extremities Skin: warm, dry, intact. - Assessment and Plan (1) Hepatic encephalopathy Current Visit: Yes Status: Acute Assessment and Plan: Acute hepatic encephalopathy. Improving. Continue lactulose. We will also add rifaximin. Possible discharge tomorrow if she continues to improve. (2) Type 2 diabetes mellitus Current Visit: Yes Status: Chronic Assessment and Plan: Uncontrolled. Blood sugars in the 400s at this time. We will increase insulin regimen and resume 70/30 insulin. (3) UTI (urinary tract infection) Current Visit: Yes Status: Suspected Assessment and Plan: Cultures are currently pending. Continue ceftriaxone. (4) DVT prophylaxis Current Visit: Yes Status: Acute Assessment and Plan: On EPCDs. Not on medical anticoagulation due to thrombocytopenia. - Time Spent with Patient Total time spent is greater than 50% in coordination of care (as documented) at patient's floor/unit and/or counseling patient: Internal Medicine: Result - Labs CBC & Chem 7: 07/02/18 09:30 07/02/18 07:23 Labs: Short CBC 07/02/18 Range/Units 09:30 WBC 2.7 L (4.3-11.1) K/mcL Hgb 11.5 D (11.5-15.4) g/dL Hct 33.0 L (35.3-44.9) % Plt Count 36 L (140-400) K/mcL Neutrophils # 1.9 (1.6-8.9) K/mcL BMP 07/02/18 07:23 Sodium 137 Potassium 3.4 L Chloride 104 Carbon Dioxide 23 BUN 18 Creatinine 0.70 Glucose 339 H Calcium 9.5 Liver Function 07/02/18 Range/Units 07:23 Total Bilirubin 2.3 H (0.3-1.0) mg/dL AST 41 H (13-39) Units/L ALT 34 (7-52) Units/L Alkaline Phosphatase 135 H (34-104) Units/L Albumin 3.4 L (3.5-5.7) g/dL - ABG Interpretation ABG results: PT/INR, D-dimer PT 13.4 Seconds (9.4-12.1) H 07/02/18 07:23 Consult Discharge Plan - Plan Referrals: Anita Marc MD [Primary Care Provider] - (2) Type 2 diabetes mellitus Qualifiers: Diabetes mellitus detention insulin use: with detention use Diabetes mellitus complication status: with circulatory complication Diabetes mellitus complication detail: with other circulatory complications Qualified Code(s): E11.59 - Type 2 diabetes mellitus with other circulatory complications; Z79.4 - [facility] (current) use of insulin (3) UTI (urinary tract infection) Qualifiers: Urinary tract infection type: acute cystitis Hematuria presence: with hematuria Qualified Code(s): N30.01 - Acute cystitis with hematuria
[2018-07-02] MEDS: Insulin NPH 100 UNIT/ML (x5UNIT) SQ SCH (15:03)
[2018-07-02] MEDS: Metoprolol 100 MG TABLET PO SCH (21:00)
[2018-07-02] MEDS: Gabapentin 100 MG CAPSULE PO SCH (21:02)
[2018-07-02] MEDS: Fluticasone Propionate Nasal 50 MCG/SPRAY BOTTLE NS PRN (21:07)
[2018-07-02] MEDS: cefTRIAXone 1,000 MG in Water for inj. (sterile) 20 ML 10 ML IVP SCH (21:29)
[2018-07-03 04:03] LABS: Basophils % 0.8 %; Immature Granulocytes % 0.4 % (0-4); Red Cell Distribution Width 17.3 % (11.5-14.5)
[2018-07-03 04:05] LABS: Eosinophils # 0.1 K/mcL (0.0-0.6); Eosinophils % 3.1 %; Hematocrit 31.6 % (35.3-44.9); Hemoglobin 11.2 g/dL (11.5-15.4); Immature Platelets 5.7 % (1.1-6.1); Lymphocytes # 0.7 K/mcL (0.6-4.6); Lymphocytes % 24.9 %; Mean Corpuscular HGB Conc 35.4 g/dL (31.6-35.5); Mean Corpuscular Hemoglobin 32.2 pg (28.0-33.3); Mean Corpuscular Volume 90.8 fL (83.0-100.0); Mean Platelet Volume 11.2 fL (9.4-12.4); Monocytes # 0.3 K/mcL (0.0-1.3); Neutrophils # 1.6 K/mcL (1.6-8.9); Red Blood Count 3.48 M/mcL (3.82-4.97); Segmented Neutrophils % 60.8 %
[2018-07-03 04:07] LABS: Platelet Count 42 K/mcL (140-400)
[2018-07-03] MEDS: Ipratropium/Albuterol Neb 3 ML IH SCH ×5 (04:20→19:51)
[2018-07-03 04:25] LABS: Alanine Aminotransferase 33 Units/L (7-52); Albumin 3.2 g/dL (3.5-5.7); Albumin/Globulin Ratio 1.3 (1.1-2.2); Alkaline Phosphatase 131 Units/L (34-104); Aspartate Amino Transferase 45 Units/L (13-39); BUN/Creatinine Ratio 26 (6-26); Bilirubin,Total 1.7 mg/dL (0.3-1.0); Blood Urea Nitrogen 18 mg/dL (8-23); Calcium 9.2 mg/dL (8.6-10.3); Carbon Dioxide 25 mEq/L (23-29); Chloride 103 mEq/L (98-107); Globulin 2.5 g/dL (2.4-3.5); Glucose 311 mg/dL (70-105); Magnesium 1.8 mg/dL (1.6-2.6); Osmolality,Calculated 294 (280-300); Potassium 3.9 mEq/L (3.5-5.1); Sodium 135 mEq/L (136-145); Total Protein 5.7 g/dL (6.4-8.9); eGFR For Non-African Americans > 60 (> 60)
[2018-07-03] MEDS: Metoprolol 100 MG TABLET PO SCH ×2 (08:40→20:14)
[2018-07-03] MEDS: Isosorbide MONOnitrate (24 HR) 30 MG TAB.ER.24H PO SCH (08:40)
[2018-07-03] MEDS: Bumetanide 1 MG TABLET PO SCH (08:41)
[2018-07-03] MEDS: Insulin NPH 100 UNIT/ML (x5UNIT) SQ SCH ×2 (08:41→17:08)
[2018-07-03] MEDS: Loratadine 10 MG TABLET PO SCH (08:41)
[2018-07-03] MEDS: Lactulose Oral Soln 20 GM/30 ML UDC PO SCH ×3 (08:41→20:15)
[2018-07-03] MEDS: Multivit/Ca/Min/Fe/FA 1 TAB TABLET PO SCH (08:41)
[2018-07-03] MEDS: Insulin LISPRO 300 UNITS/3 ML VIAL SQ SCH ×5 (08:42→20:17)
[2018-07-03] MEDS ORDERED: [Breo Ellipta 100-25 Mcg Inh] IH SCH (09:00)
[2018-07-03] MEDS ORDERED: Lactulose 200 GM, Sodium Chloride IRRigation 700 ML RC ONE (11:50)
--- NOTE | 2018-07-03 14:56 | Internal Med Progress Note ---
Hospitalist Progress Note - Encounter Date of Encounter: 07/03/18 Time of Encounter: 10:10 - Subjective Interval History: Patient is awake and alert. She feels better today. She has not yet had a bowel movement. Denies any abdominal pain. No fever or chills. No dysuria. - Exam Vitals: Temp Pulse Resp BP Pulse Ox 98.1 F 79 16 116/67 96 07/03/18 11:36 07/03/18 11:36 07/03/18 11:36 07/03/18 11:36 07/03/18 11:36 Exam: General: Patient is alert, no acute distress, oriented x 3 Respiratory: Good respiratory effort. Normal breath sounds. No wheezing or crackles. Cardiovascular: Regular rate and rhythm. s1 and s2 normal No clicks, rubs, gallops, or murmurs. No pedal edema Abdomen: Abdomen is soft, nontender. Bowel sounds are present Musculoskeletal: Spontaneously moving all extremities Skin: warm, dry, intact. Neuro: Alert oriented x 3 normal cranial nerves, no focal deficits - Assessment and Plan (1) Hepatic encephalopathy Current Visit: Yes Status: Acute Assessment and Plan: Ammonia worsened today. No response to lactulose and rifaximin. Will order lactulose anymore. Possible discharge tomorrow if ammonia levels improved and patient continues to clinically getting better. (2) Type 2 diabetes mellitus Current Visit: Yes Status: Chronic Assessment and Plan: Blood sugars are better today but still elevated. We will increase insulin regimen. Monitor blood sugars closely. (3) UTI (urinary tract infection) Current Visit: Yes Status: Suspected Assessment and Plan: patient suspected of having UTI. Growth. We will await final results. Continue ceftriaxone in the meantime. (4) DVT prophylaxis Current Visit: Yes Status: Acute Assessment and Plan: With SCDs alone due to thrombocytopenia - Time Spent with Patient Total time spent is greater than 50% in coordination of care (as documented) at patient's floor/unit and/or counseling patient: Internal Medicine: Result - Labs CBC & Chem 7: 07/03/18 03:52 07/03/18 03:52 Labs: Short CBC 07/03/18 Range/Units 03:52 WBC 2.6 L (4.3-11.1) K/mcL Hgb 11.2 L (11.5-15.4) g/dL Hct 31.6 L (35.3-44.9) % Plt Count 42 L (140-400) K/mcL Neutrophils # 1.6 (1.6-8.9) K/mcL BMP 07/03/18 03:52 Sodium 135 L Potassium 3.9 Chloride 103 Carbon Dioxide 25 BUN 18 Creatinine 0.69 Glucose 311 H Calcium 9.2 Liver Function 07/03/18 Range/Units 03:52 Total Bilirubin 1.7 H (0.3-1.0) mg/dL AST 45 H (13-39) Units/L ALT 33 (7-52) Units/L Alkaline Phosphatase 131 H (34-104) Units/L Albumin 3.2 L (3.5-5.7) g/dL - ABG Interpretation ABG results: PT/INR, D-dimer PT 13.4 Seconds (9.4-12.1) H 07/02/18 07:23 Consult Discharge Plan - Plan Referrals: Anita Marc MD [Primary Care Provider] - (2) Type 2 diabetes mellitus Qualifiers: Diabetes mellitus terminal press operator insulin use: with terminal press operator use Diabetes mellitus complication status: with circulatory complication Diabetes mellitus complication detail: with other circulatory complications Qualified Code(s): E11.59 - Type 2 diabetes mellitus with other circulatory complications; Z79.4 - [facility] (current) use of insulin (3) UTI (urinary tract infection) Qualifiers: Urinary tract infection type: acute cystitis Hematuria presence: with hematuria Qualified Code(s): N30.01 - Acute cystitis with hematuria
--- NOTE | 2018-07-03 17:31 | Electrocardiograph Report ---
[place] [id number] Test Date: 2018-07-01 Pat Name: Odalis Morgan Department: EXAM[facility] Room: 2A Gender: F Lpn Care Manager: : [id number] Requested By: [id number] Order Number: [id number] Reading MD: Teagan Leroy Measurements Intervals [place] Rate: 99 P: 55 VA: 170 QRS: 18 QRSD: 88 T: 28 QT: 375 QTc: 482 Interpretive Statements Sinus rhythm Ventricular premature complex Electronically Signed On 07-03-2018 17:29:32 EDT by Teagan Leroy
[2018-07-03] MEDS: Budesonide/Formoterol 160/4.5 1 PUFF INH IH SCH (19:46)
[2018-07-03] MEDS: Gabapentin 100 MG CAPSULE PO SCH (20:14)
[2018-07-03] MEDS: cefTRIAXone 1,000 MG in Water for inj. (sterile) 20 ML 10 ML IVP SCH (20:15)
[2018-07-03] MEDS ORDERED: Ipratropium/Albuterol Neb 3 ML IH PRN (21:00)
[2018-07-04 05:12] LABS: Red Cell Distribution Width 17.2 % (11.5-14.5)
[2018-07-04 05:14] LABS: Basophils % 0.8 %; Eosinophils # 0.2 K/mcL (0.0-0.6); Eosinophils % 5.6 %; Hematocrit 30.3 % (35.3-44.9); Hemoglobin 11.1 g/dL (11.5-15.4); Immature Granulocytes % 0.3 % (0-4); Immature Platelets 5.5 % (1.1-6.1); Lymphocytes # 0.8 K/mcL (0.6-4.6); Mean Corpuscular HGB Conc 36.6 g/dL (31.6-35.5); Mean Corpuscular Hemoglobin 32.8 pg (28.0-33.3); Mean Corpuscular Volume 89.6 fL (83.0-100.0); Mean Platelet Volume 11.7 fL (9.4-12.4); Monocytes # 0.4 K/mcL (0.0-1.3); Monocytes % 10.2 %; Red Blood Count 3.38 M/mcL (3.82-4.97); Segmented Neutrophils % 61.1 %
[2018-07-04 05:16] LABS: Neutrophils # 2.1 K/mcL (1.6-8.9); Platelet Count 45 K/mcL (140-400)
[2018-07-04 05:31] LABS: BUN/Creatinine Ratio 31 (6-26); Blood Urea Nitrogen 19 mg/dL (8-23); Calcium 9.1 mg/dL (8.6-10.3); Carbon Dioxide 26 mEq/L (23-29); Chloride 106 mEq/L (98-107); Glucose 136 mg/dL (70-105); Osmolality,Calculated 290 (280-300); Potassium 3.6 mEq/L (3.5-5.1); Sodium 138 mEq/L (136-145); eGFR For Non-African Americans > 60 (> 60)
[2018-07-04] MEDS: Budesonide/Formoterol 160/4.5 1 PUFF INH IH SCH ×2 (07:47→20:00)
[2018-07-04] MEDS: Insulin LISPRO 300 UNITS/3 ML VIAL SQ SCH ×4 (08:02→20:46)
[2018-07-04] MEDS: Bumetanide 1 MG TABLET PO SCH (08:12)
[2018-07-04] MEDS: Insulin NPH 100 UNIT/ML (x5UNIT) SQ SCH ×2 (08:12→17:10)
[2018-07-04] MEDS: Lactulose Oral Soln 20 GM/30 ML UDC PO SCH ×4 (08:12→20:39)
[2018-07-04] MEDS: Isosorbide MONOnitrate (24 HR) 30 MG TAB.ER.24H PO SCH (08:12)
[2018-07-04] MEDS: Loratadine 10 MG TABLET PO SCH (08:12)
[2018-07-04] MEDS: Multivit/Ca/Min/Fe/FA 1 TAB TABLET PO SCH (08:12)
[2018-07-04] MEDS: Metoprolol 100 MG TABLET PO SCH ×2 (08:12→20:39)
[2018-07-04] MEDS: Fluticasone Propionate Nasal 50 MCG/SPRAY BOTTLE NS PRN (11:30)
[2018-07-04] MEDS ORDERED: Lactulose Oral Soln 20 GM/30 ML UDC PO SCH (12:30)
--- NOTE | 2018-07-04 15:46 | Internal Med Progress Note ---
<Neli Leong - Last Filed: 07/04/18 18:18> Hospitalist Progress Note - Encounter Date of Encounter: 07/04/18 Time of Encounter: 11:02 - Subjective Interval History: Mr. Morgan is a 63 year old female with a history of SIMON cirrhosis diagnosed > 10 years ago with recent TIPS approximately 1.5 months ago, who presented with AMS for 24-48 hours. She was found to be altered by her in the middle of the night. When he tried to get her back in bed, she bit him on the abdomen at which point he knew she needed to be evaluated. She had not been taking her lactulose regularly due to not feeling like she needed it. After her recent admission she began taking it TID without consistent bowel movements for the past week. Her mental status is significantly improved today, and per her he believes that she is pretty much back to baseline. She denies any chest pain, SOB, abdominal pain or swelling. - Exam Vitals: Temp Pulse Resp BP Pulse Ox 97.3 F L 69 16 112/68 97 07/04/18 11:29 07/04/18 11:29 07/04/18 11:29 07/04/18 11:29 07/04/18 11:29 Exam: General: Patient is alert, no acute distress, oriented x 3 Respiratory: CTAB, no wheezing or crackles. Cardiovascular: RRR. s1 and s2 normal No murmurs. No pedal edema Abdomen: Abdomen is soft, nontender and without swelling Musculoskeletal: Spontaneously moving all extremities Skin: warm, dry, intact. - Assessment and Plan (1) Hepatic encephalopathy Current Visit: Yes Status: Acute Assessment and Plan: Likely secondary to SIMON with cirrhosis with noncompliance and poor response with lactulose Ammonia of 89 on admission Patient did not respond to lactulose and rifaximin, and required an enema yesterday Mentation back to baseline today Plan: Increased lactulose to 4 times a day, if bowel movements improved tomorrow will likely discharge Continue rifaximin (2) SIMON (nonalcoholic steatohepatitis) Current Visit: Yes Status: Chronic Assessment and Plan: Reported history of diagnosis around 2004 S/P Tipps procedure about a month and a half ago She has not had ascites since Tipps procedure Patient has not been compliant with daily lactulose at home, and when she is she is only having 1-2 bowel movements per day maximum Recent episode of AMS 1 week ago Plan: Increase lactulose to 4 times a day Continue rifaximin Schedule follow-up with Dr. Brambila on discharge (3) Type 2 diabetes mellitus Current Visit: Yes Status: Chronic Assessment and Plan: A1c of 8.4 Sugars better controlled today in 100s Continue to monitor closely (4) UTI (urinary tract infection) Current Visit: Yes Status: Suspected Assessment and Plan: Uncomplicated UTI Patient symptomatic with dysuria, urgency, and concentrated urine for past several days Urine culture negative Continue Rocephin for now, will transition to by mouth Cipro 500 twice a day for possible discharge tomorrow DVT Prophylaxis: SCDs due to thrombocytopenia - Time Spent with Patient Total time spent is greater than 50% in coordination of care (as documented) at patient's floor/unit and/or counseling patient: Plan of Care Discussed with: family () Internal Medicine: Result - Labs CBC & Chem 7: 07/04/18 04:56 07/04/18 04:56 Labs: Short CBC 07/04/18 Range/Units 04:56 WBC 3.5 L (4.3-11.1) K/mcL Hgb 11.1 L (11.5-15.4) g/dL Hct 30.3 L (35.3-44.9) % Plt Count 45 L (140-400) K/mcL Neutrophils # 2.1 (1.6-8.9) K/mcL BMP 07/04/18 04:56 Sodium 138 Potassium 3.6 Chloride 106 Carbon Dioxide 26 BUN 19 Creatinine 0.61 Glucose 136 H Calcium 9.1 - ABG Interpretation ABG results: PT/INR, D-dimer PT 13.4 Seconds (9.4-12.1) H 07/02/18 07:23 Consult Discharge Plan - Plan Referrals: Anita Marc MD [Primary Care Provider] - <Miguel Estrada - Last Filed: 07/04/18 18:51> Hospitalist Progress Note - Encounter Date of Encounter: 07/04/18 - Exam Vitals: Temp Pulse Resp BP Pulse Ox 98.0 F 75 16 103/60 97 07/04/18 16:22 07/04/18 16:22 07/04/18 16:22 07/04/18 16:22 07/04/18 16:22 - Assessment and Plan (1) Hepatic encephalopathy Current Visit: Yes Status: Acute (2) Type 2 diabetes mellitus Current Visit: Yes Status: Chronic (3) UTI (urinary tract infection) Current Visit: Yes Status: Suspected (4) DVT prophylaxis Current Visit: Yes Status: Acute - Time Spent with Patient Total time spent is greater than 50% in coordination of care (as documented) at patient's floor/unit and/or counseling patient: Internal Medicine: Result - Labs CBC & Chem 7: 07/04/18 04:56 07/04/18 04:56 Labs: Short CBC 07/04/18 Range/Units 04:56 WBC 3.5 L (4.3-11.1) K/mcL Hgb 11.1 L (11.5-15.4) g/dL Hct 30.3 L (35.3-44.9) % Plt Count 45 L (140-400) K/mcL Neutrophils # 2.1 (1.6-8.9) K/mcL BMP 07/04/18 04:56 Sodium 138 Potassium 3.6 Chloride 106 Carbon Dioxide 26 BUN 19 Creatinine 0.61 Glucose 136 H Calcium 9.1 - ABG Interpretation ABG results: PT/INR, D-dimer PT 13.4 Seconds (9.4-12.1) H 07/02/18 07:23 - Attending Attestation I have seen and examined this pt independently. I have discussed with resident physician Dr. Leong regarding the management plan. Agree with the documentation. <Neli Leong - Last Filed: 07/04/18 18:18> (3) Type 2 diabetes mellitus Qualifiers: Diabetes mellitus mechanical assembly insulin use: with mechanical assembly use Diabetes mellitus complication status: with circulatory complication Diabetes mellitus complication detail: with other circulatory complications Qualified Code(s): E11.59 - Type 2 diabetes mellitus with other circulatory complications; Z79.4 - c.o.d. clerk (current) use of insulin (4) UTI (urinary tract infection) Qualifiers: Urinary tract infection type: acute cystitis Hematuria presence: with hematuria Qualified Code(s): N30.01 - Acute cystitis with hematuria <Miguel Estrada - Last Filed: 07/04/18 18:51> (2) Type 2 diabetes mellitus Qualifiers: Diabetes mellitus longterm insulin use: with longterm use Diabetes mellitus complication status: with circulatory complication Diabetes mellitus complication detail: with other circulatory complications Qualified Code(s): E11.59 - Type 2 diabetes mellitus with other circulatory complications; Z79.4 - [facility] (current) use of insulin (3) UTI (urinary tract infection) Qualifiers: Urinary tract infection type: acute cystitis Hematuria presence: with hematuria Qualified Code(s): N30.01 - Acute cystitis with hematuria
[2018-07-04] MEDS: Gabapentin 100 MG CAPSULE PO SCH (20:39)
[2018-07-04] MEDS: cefTRIAXone 1,000 MG in Water for inj. (sterile) 20 ML 10 ML IVP SCH (20:40)
[2018-07-05 06:11] LABS: BUN/Creatinine Ratio 32 (6-26); Blood Urea Nitrogen 21 mg/dL (8-23); Calcium 8.9 mg/dL (8.6-10.3); Carbon Dioxide 28 mEq/L (23-29); Chloride 101 mEq/L (98-107); Glucose 295 mg/dL (70-105); Osmolality,Calculated 292 (280-300); Potassium 4.2 mEq/L (3.5-5.1); Sodium 134 mEq/L (136-145); eGFR For Non-African Americans > 60 (> 60)
[2018-07-05] MEDS: Budesonide/Formoterol 160/4.5 1 PUFF INH IH SCH ×2 (07:56→20:12)
[2018-07-05] MEDS: Isosorbide MONOnitrate (24 HR) 30 MG TAB.ER.24H PO SCH (08:11)
[2018-07-05] MEDS: Loratadine 10 MG TABLET PO SCH (08:11)
[2018-07-05] MEDS: Metoprolol 100 MG TABLET PO SCH ×2 (08:11→22:18)
[2018-07-05] MEDS: Multivit/Ca/Min/Fe/FA 1 TAB TABLET PO SCH (08:11)
[2018-07-05] MEDS: Bumetanide 1 MG TABLET PO SCH (08:11)
[2018-07-05] MEDS: Fluticasone Propionate Nasal 50 MCG/SPRAY BOTTLE NS PRN (08:11)
[2018-07-05] MEDS: Lactulose Oral Soln 20 GM/30 ML UDC PO SCH ×4 (08:12→22:17)
[2018-07-05] MEDS: Insulin LISPRO 300 UNITS/3 ML VIAL SQ SCH ×7 (08:16→22:19)
[2018-07-05] MEDS: Insulin NPH 100 UNIT/ML (x5UNIT) SQ SCH ×2 (08:21→17:29)
--- NOTE | 2018-07-05 12:35 | Internal Med Progress Note ---
Hospitalist Progress Note - Encounter Date of Encounter: 07/05/18 Time of Encounter: 09:00 - Subjective Interval History: Pt is AAO x 3, still has no BM even on qid lactulose. Otherwise she is comfortable, no confusion. - Exam Vitals: Temp Pulse Resp BP Pulse Ox 97.9 F 70 19 125/74 96 07/05/18 12:12 07/05/18 12:12 07/05/18 12:12 07/05/18 12:12 07/05/18 12:12 Exam: General: Patient is alert, no acute distress, oriented x 3 Respiratory: CTAB, no wheezing or crackles. Cardiovascular: RRR. s1 and s2 normal No murmurs. No pedal edema Abdomen: Abdomen is soft, nontender and without swelling Musculoskeletal: Spontaneously moving all extremities Skin: warm, dry, intact. - Assessment and Plan (1) Hepatic encephalopathy Current Visit: Yes Status: Acute Assessment and Plan: Ammonia trend up again and pt still has no BMs. In crease lactulose to 30gm po qid today, is still no BM, consider enema again. Closely monitor pt. (2) Type 2 diabetes mellitus Current Visit: Yes Status: Chronic Assessment and Plan: Blood sugars is poorly controlled. We will increase insulin regimen. Monitor blood sugars closely. (3) UTI (urinary tract infection) Current Visit: Yes Status: Suspected Assessment and Plan: patient suspected of having UTI. Urine culture shows no growth. Pt is asymptomatic now. Consider uncomplicated UTI. will d/c ceftriaxone after 5 days treatment. (4) DVT prophylaxis Current Visit: Yes Status: Acute Assessment and Plan: With SCDs alone due to thrombocytopenia DVT Prophylaxis: SCDs due to thrombocytopenia - Time Spent with Patient Total time spent is greater than 50% in coordination of care (as documented) at patient's floor/unit and/or counseling patient: 30 min 25 - 35 minutes Plan of Care Discussed with: patient Internal Medicine: Result - Labs CBC & Chem 7: 07/04/18 04:56 07/05/18 05:42 Labs: BMP 07/05/18 05:42 Sodium 134 L Potassium 4.2 Chloride 101 Carbon Dioxide 28 BUN 21 Creatinine 0.66 Glucose 295 H Calcium 8.9 - ABG Interpretation ABG results: PT/INR, D-dimer PT 13.4 Seconds (9.4-12.1) H 07/02/18 07:23 Consult Discharge Plan - Plan Referrals: Anita Marc MD [Primary Care Provider] - (2) Type 2 diabetes mellitus Qualifiers: Diabetes mellitus alf insulin use: with guest services assistant use Diabetes mellitus complication status: with circulatory complication Diabetes mellitus complication detail: with other circulatory complications Qualified Code(s): E11.59 - Type 2 diabetes mellitus with other circulatory complications; Z79.4 - alf (current) use of insulin (3) UTI (urinary tract infection) Qualifiers: Urinary tract infection type: acute cystitis Hematuria presence: with hematuria Qualified Code(s): N30.01 - Acute cystitis with hematuria
[2018-07-05] MEDS: Gabapentin 100 MG CAPSULE PO SCH (22:18)
[2018-07-06 06:45] LABS: BUN/Creatinine Ratio 35 (6-26); Blood Urea Nitrogen 19 mg/dL (8-23); Calcium 9.1 mg/dL (8.6-10.3); Carbon Dioxide 26 mEq/L (23-29); Chloride 103 mEq/L (98-107); Glucose 171 mg/dL (70-105); Osmolality,Calculated 286 (280-300); Potassium 3.5 mEq/L (3.5-5.1); Sodium 135 mEq/L (136-145); eGFR For Non-African Americans > 60 (> 60)
[2018-07-06] MEDS: Fluticasone Propionate Nasal 50 MCG/SPRAY BOTTLE NS PRN (08:09)
[2018-07-06] MEDS: Bumetanide 1 MG TABLET PO SCH (08:09)
[2018-07-06] MEDS: Insulin NPH 100 UNIT/ML (x5UNIT) SQ SCH ×2 (08:10→16:37)
[2018-07-06] MEDS: Isosorbide MONOnitrate (24 HR) 30 MG TAB.ER.24H PO SCH (08:10)
[2018-07-06] MEDS: Metoprolol 100 MG TABLET PO SCH ×2 (08:10→21:35)
[2018-07-06] MEDS: Lactulose Oral Soln 20 GM/30 ML UDC PO SCH ×3 (08:10→15:13)
[2018-07-06] MEDS: Multivit/Ca/Min/Fe/FA 1 TAB TABLET PO SCH (08:10)
[2018-07-06] MEDS: Loratadine 10 MG TABLET PO SCH (08:10)
[2018-07-06] MEDS: Insulin LISPRO 300 UNITS/3 ML VIAL SQ SCH ×7 (08:11→21:36)
[2018-07-06] MEDS: Budesonide/Formoterol 160/4.5 1 PUFF INH IH SCH ×2 (11:33→19:52)
--- NOTE | 2018-07-06 13:30 | Internal Med Progress Note ---
<Neli Leong - Last Filed: 07/06/18 14:27> Hospitalist Progress Note - Encounter Date of Encounter: 07/06/18 Time of Encounter: 09:37 - Subjective Interval History: Mr. Morgan is a 63 year old female with a history of SIMON cirrhosis diagnosed > 10 years ago with recent TIPS approximately 1.5 months ago, who presented with AMS for 24-48 hours. She was found to be altered by her in the middle of the night. When he tried to get her back in bed, she bit him on the abdomen at which point he knew she needed to be evaluated. She had not been taking her lactulose regularly due to not feeling like she needed it. After her recent admission she began taking it TID without consistent bowel movements for the past week. Her mental status is slightly decreases from yesterday despite having 2 bowel movements yesterday. She is complaining of fatigue and feeling off-balance today. She also admits that her abdomen feels a little swollen but that she feels like it is mostly gas. She denies any chest pain, SOB, or abdominal pain. - Exam Vitals: Temp Pulse Resp BP Pulse Ox 98.1 F 71 16 120/61 96 07/06/18 11:08 07/06/18 11:08 07/06/18 11:35 07/06/18 11:08 07/06/18 11:35 Exam: General: Alert and oriented x 3 Respiratory: CTAB, no wheezing or crackles. Cardiovascular: RRR. s1 and s2 normal No murmurs. No pedal edema Abdomen: Abdomen is soft, nontender, slightly larger compared to yesterday, BS x4 Musculoskeletal: Spontaneously moving all extremities Skin: warm, dry, intact. - Assessment and Plan (1) Hepatic encephalopathy Current Visit: Yes Status: Acute Assessment and Plan: Likely secondary to SIMON with cirrhosis with noncompliance and poor response to lactulose Ammonia of 89 on admission, 88 today Patient had 2 BMs yesterday, but feeling somewhat worse today with fatigue and feeling off balance Plan: Continue Lactulose 30g QID Continue Rifaximin Consulted GI for further recommendations Consulted Nurition for dietary receommendations to help with BMs (2) SIMON (nonalcoholic steatohepatitis) Current Visit: Yes Status: Chronic Assessment and Plan: Reported history of diagnosis around 2004 S/P TIPPS procedure about a month and a half ago She has not had ascites since TIPPS procedure Patient has not been compliant with daily lactulose at home, and when she is she is only having 1-2 bowel movements per day maximum Recent episode of AMS 1 week ago Plan: See above (3) Type 2 diabetes mellitus Current Visit: Yes Status: Chronic Assessment and Plan: A1c of 8.4 Poorly controlled Glu 150s-280s today Continue high dose SSI (4) UTI (urinary tract infection) Current Visit: Yes Status: Resolved Assessment and Plan: Uncomplicated UTI Patient now asymptomatic after completing 3 days course of Ceftriaxone Urine cultures negative Plan: Discontinued Ceftriaxone (5) Pancytopenia Current Visit: No Status: Chronic Assessment and Plan: Chronic. Stable. WBC 3.5 improved from baseline of 1.5-2.5 over the past year RBC 3.38 down from baseline in low 4s Plt 45 improved from basline high 30s to low 40s (6) Hypertension Current Visit: No Status: Chronic Assessment and Plan: Chronic. Stable. Continue Metoprolol (7) Coronary artery disease Current Visit: Yes Status: Chronic Assessment and Plan: Last C was March 2016 with 40% ISR mid LAD, 20% pLCx, 30% mid RCA, 80% small PDA not amenable to intervention. Stress test in 01/24 - negative Echo 12/25 - normal LVEF. Patient is not on aspirin due to profound thrombocytopenia and recurrent variceal bleeds requiring banding. Continue Beta Jeniffer, Statin, Imdur, Sprinonolactone DVT Prophylaxis: SCDs due to thrombocytopenia - Time Spent with Patient Total time spent is greater than 50% in coordination of care (as documented) at patient's floor/unit and/or counseling patient: 25 - 35 minutes Plan of Care Discussed with: patient (and ) Internal Medicine: Result - Labs CBC & Chem 7: 07/04/18 04:56 07/06/18 06:08 Labs: BMP 07/06/18 06:08 Sodium 135 L Potassium 3.5 Chloride 103 Carbon Dioxide 26 BUN 19 Creatinine 0.55 L Glucose 171 H Calcium 9.1 - ABG Interpretation ABG results: PT/INR, D-dimer PT 13.4 Seconds (9.4-12.1) H 07/02/18 07:23 Consult Discharge Plan - Plan Referrals: Nikhil Brambila MD [Partnered Physician] - 07/13/18 3:00 pm (Please follow up as schedule...) Anita Marc MD [Primary Care Provider] - <Miguel Estrada - Last Filed: 07/06/18 15:32> Hospitalist Progress Note - Encounter Date of Encounter: 07/06/18 - Exam Vitals: Temp Pulse Resp BP Pulse Ox 98.1 F 71 16 120/61 96 07/06/18 11:08 07/06/18 11:08 07/06/18 11:35 07/06/18 11:08 07/06/18 11:35 - Assessment and Plan (1) Hepatic encephalopathy Current Visit: Yes Status: Acute (2) Type 2 diabetes mellitus Current Visit: Yes Status: Chronic (3) UTI (urinary tract infection) Current Visit: Yes Status: Resolved (4) DVT prophylaxis Current Visit: Yes Status: Acute - Time Spent with Patient Total time spent is greater than 50% in coordination of care (as documented) at patient's floor/unit and/or counseling patient: Internal Medicine: Result - Labs CBC & Chem 7: 07/04/18 04:56 07/06/18 06:08 Labs: BMP 07/06/18 06:08 Sodium 135 L Potassium 3.5 Chloride 103 Carbon Dioxide 26 BUN 19 Creatinine 0.55 L Glucose 171 H Calcium 9.1 - ABG Interpretation ABG results: PT/INR, D-dimer PT 13.4 Seconds (9.4-12.1) H 07/02/18 07:23 - Attending Attestation I have seen and examined this pt independently. I have discussed with resident physician Dr Leong regarding the management plan. Agree with the documentation. <Neli Leong - Last Filed: 07/06/18 14:27> (3) Type 2 diabetes mellitus Qualifiers: Diabetes mellitus termite inspector insulin use: with intermediate use Diabetes mellitus complication status: with circulatory complication Diabetes mellitus complication detail: with other circulatory complications Qualified Code(s): E11.59 - Type 2 diabetes mellitus with other circulatory complications; Z79.4 - termite control service representative (current) use of insulin (4) UTI (urinary tract infection) Qualifiers: Urinary tract infection type: acute cystitis Hematuria presence: with hematuria Qualified Code(s): N30.01 - Acute cystitis with hematuria (6) Hypertension Qualifiers: Hypertension type: essential hypertension Qualified Code(s): I10 - Essential (primary) hypertension (7) Coronary artery disease Qualifiers: Coronary Disease-Associated Artery/Lesion type: elem artery [place] vs. transplanted heart: elem heart Associated angina: without angina Qualified Code(s): I25.10 - Atherosclerotic heart disease of elem coronary artery without angina pectoris <Miguel Estrada - Last Filed: 07/06/18 15:32> (2) Type 2 diabetes mellitus Qualifiers: Qualified Code(s): E11.59 - Type 2 diabetes mellitus with other circulatory complications; Z79.4 - termite control service representative (current) use of insulin (3) UTI (urinary tract infection) Qualifiers: Qualified Code(s): N30.01 - Acute cystitis with hematuria
[2018-07-06] MEDS ORDERED: Ondansetron 4 MG/2 ML VIAL IVP PRN (14:20)
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
[2018-07-06] MEDS: Albuterol 2.5 MG/3 ML NEBULIZER IH PRN (15:35)
[2018-07-06] MEDS ORDERED: Lactulose 200 GM/300 ML (for enema) RC SCH (21:00)
[2018-07-06] MEDS: Gabapentin 100 MG CAPSULE PO SCH (21:36)
[2018-07-06] MEDS ORDERED: Lactulose Oral Soln 20 GM/30 ML UDC PO PRN (21:45)
[2018-07-07] MEDS: Insulin LISPRO 300 UNITS/3 ML VIAL SQ SCH ×8 (00:48→22:17)
[2018-07-07] MEDS: Budesonide/Formoterol 160/4.5 1 PUFF INH IH SCH ×2 (07:57→20:30)
[2018-07-07] MEDS: Loratadine 10 MG TABLET PO SCH (08:55)
[2018-07-07] MEDS: Isosorbide MONOnitrate (24 HR) 30 MG TAB.ER.24H PO SCH (08:55)
[2018-07-07] MEDS: Metoprolol 100 MG TABLET PO SCH ×2 (08:56→22:07)
[2018-07-07] MEDS: Insulin NPH 100 UNIT/ML (x5UNIT) SQ SCH ×2 (08:56→18:40)
[2018-07-07] MEDS: Multivit/Ca/Min/Fe/FA 1 TAB TABLET PO SCH (08:56)
[2018-07-07] MEDS: Lactulose Oral Soln 20 GM/30 ML UDC PO SCH ×3 (09:29→22:08)
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
[2018-07-07] MEDS ORDERED: Lactulose Oral Soln 20 GM/30 ML UDC PO ONE (16:44)
--- NOTE | 2018-07-07 16:53 | Event Note ---
Date of Encounter: 07/07/18 Time of Encounter: 16:35 Pt feels mild confused and nausea, feels like having encephalopathy. Pt has no BM during daytime. See pt bedside. AAO x 3, heart anf lungs unremarkable, abd soft, mile tender in right side w/o guarding/rebound, good BS. plan: - Check ammonia and BMP - encourage physical activity to help BM - Hold D/C for today.
[2018-07-07 17:56] LABS: BUN/Creatinine Ratio 28 (6-26); Blood Urea Nitrogen 19 mg/dL (8-23); Calcium 9.3 mg/dL (8.6-10.3); Carbon Dioxide 29 mEq/L (23-29); Chloride 104 mEq/L (98-107); Glucose 308 mg/dL (70-105); Osmolality,Calculated 298 (280-300); Potassium 3.9 mEq/L (3.5-5.1); Sodium 137 mEq/L (136-145); eGFR For Non-African Americans > 60 (> 60)
[2018-07-07] MEDS: *HR* Metformin 500 MG TABLET PO SCH (18:08)
[2018-07-07] MEDS: Albuterol 2.5 MG/3 ML NEBULIZER IH PRN (20:30)
[2018-07-07] MEDS: Gabapentin 100 MG CAPSULE PO SCH (22:07)
[2018-07-08 06:24] LABS: BUN/Creatinine Ratio 32 (6-26); Blood Urea Nitrogen 23 mg/dL (8-23); Calcium 9.1 mg/dL (8.6-10.3); Carbon Dioxide 27 mEq/L (23-29); Chloride 106 mEq/L (98-107); Glucose 191 mg/dL (70-105); Osmolality,Calculated 295 (280-300); Potassium 4.1 mEq/L (3.5-5.1); Sodium 138 mEq/L (136-145); eGFR For Non-African Americans > 60 (> 60)
[2018-07-08] MEDS: Budesonide/Formoterol 160/4.5 1 PUFF INH IH SCH ×2 (07:29→20:00)
[2018-07-08] MEDS: Lactulose Oral Soln 20 GM/30 ML UDC PO SCH ×4 (09:36→22:06)
--- NOTE | 2018-07-08 09:37 | Internal Med Progress Note ---
<Aaron Morfin - Last Filed: 07/08/18 11:22> Hospitalist Progress Note - Encounter Date of Encounter: 07/08/18 Time of Encounter: 09:35 - Subjective Interval History: Ms. Morgan reports doing okay overnight. Has been feeling a little more wobbly since yesterday and did not have a bowel movement yesterday afternoon/ evening. Patient also has a slight headache this morning. Denies nausea, vomiting, abdominal pain. Denies fevers, chills, sweats, nausea, vomiting, chest pain, shortness of breath, cough, abdominal pain, changes in bowels or bladder, weakness, loss of sensation, or rash. - Exam Vitals: Temp Pulse Resp BP Pulse Ox 98.0 F 70 16 105/56 95 07/08/18 07:49 07/08/18 07:49 07/08/18 07:49 07/08/18 07:49 07/08/18 07:49 Exam: General: alert, awake, oriented x 4, no acute distress HEENT: moist mucus membranes CV: RRR, no murmurs Lungs: CTAB, no wheezing, rhonchi, or rales Abd: soft, nontender, normal bowel sounds, slightly distended, no fluid wave Msk: 5/5 strenght bilaterally, moves all extremities Ext: no edema or cyanosis Skin: warm, dry, intact - Assessment and Plan (1) Hepatic encephalopathy Current Visit: Yes Status: Acute Assessment and Plan: Likely secondary to SIMON with cirrhosis with poor response to lactulose Ammonia of 89 on admission. Ammonia 89 this morning, 47 yesterday. Had a bowel movement in the AM, no bowel movement in afternoon/evening. Patient is having symptoms including feeling wobbly again today which has been consistent with her elevated ammonia levels -Increase Lactulose to 45g qid, titrate to 2-3 bowel movements per day -Continue with Rifaximin -GI on board -Appetite has been normal, continue with pureed diet. -Continue inpatient. -Follow up with GI outpatient 07/13/18 at 15:00pm. (2) SIMON (nonalcoholic steatohepatitis) Current Visit: Yes Status: Chronic Assessment and Plan: Diagnosis since 2004. SIMON with cirrhosis S/P TIPPS procedure 04/24/2018 She has not had ascites since TIPPS procedure, but has been gaining slowly some weight Patient has not been compliant with daily lactulose at home, and when she is she is only having 1-2 bowel movements per day maximum Recent episode of AMS 1 week ago PT 13.4, INR 1.2 Plan: See above -Consider evaluation for possible Paracentesis on Tuesday if patient still hospitalized. (3) UTI (urinary tract infection) Current Visit: Yes Status: Resolved Assessment and Plan: Patient now asymptomatic after completing 3 days course of Ceftriaxone Urine cultures negative -no therapy, continue monitoring for symptoms. (4) Type 2 diabetes mellitus Current Visit: Yes Status: Chronic Assessment and Plan: A1c of 8.4 Poorly controlled Glu 191, down from 308 yesterday -Continue sliding scale insulin -Continue meformin bid. (5) CAD (coronary artery disease) Current Visit: No Status: Chronic Assessment and Plan: Known history of CAD Last [facility] was March 2016 with 40% ISR mid LAD, 20% pLCx, 30% mid RCA, 80% small PDA not amenable to intervention. Stress test in 01/24 - negative Echo 12/25 - normal LVEF. Patient is not on aspirin due to profound thrombocytopenia and recurrent variceal bleeds requiring banding. Continue Beta Jeniffer, Statin, Imdur, Sprinonolactone (6) Hypertension Current Visit: No Status: Chronic Assessment and Plan: Known history of htn, bp stable and controlled -Continue with home med for chronic disease management. (7) Pancytopenia Current Visit: No Status: Chronic Assessment and Plan: Known history of pancytopenia WBC 3.5, RBC 3.38, plt 45 DVT Prophylaxis: SCDs due to thrombocytopenia - Time Spent with Patient Total time spent is greater than 50% in coordination of care (as documented) at patient's floor/unit and/or counseling patient: Internal Medicine: Result - Labs CBC & Chem 7: 07/04/18 04:56 07/08/18 05:50 Labs: BMP 07/07/18 07/08/18 17:17 05:50 Sodium 137 138 Potassium 3.9 4.1 Chloride 104 106 Carbon Dioxide 29 27 BUN 19 23 Creatinine 0.68 0.71 Glucose 308 H 191 H Calcium 9.3 9.1 - ABG Interpretation ABG results: PT/INR, D-dimer PT 13.4 Seconds (9.4-12.1) H 07/02/18 07:23 Consult Discharge Plan - Plan Referrals: Nikhil Brambila MD [Partnered Physician] - 07/13/18 3:00 pm (Please follow up as schedule...) Anita Marc MD [Primary Care Provider] - Prescriptions: Lactulose 45 gm PO TID 30 Days #2 bottle Rifaximin [Xifaxan] 550 mg PO BID #20 tablet <Miguel Estrada - Last Filed: 07/08/18 13:27> Hospitalist Progress Note - Encounter Date of Encounter: 07/08/18 - Exam Vitals: Temp Pulse Resp BP Pulse Ox 98.0 F 66 15 90/50 96 07/08/18 11:54 07/08/18 11:54 07/08/18 11:54 07/08/18 11:54 07/08/18 11:54 - Assessment and Plan (1) Hepatic encephalopathy Current Visit: Yes Status: Acute (2) Type 2 diabetes mellitus Current Visit: Yes Status: Chronic (3) UTI (urinary tract infection) Current Visit: Yes Status: Resolved (4) DVT prophylaxis Current Visit: Yes Status: Acute - Time Spent with Patient Total time spent is greater than 50% in coordination of care (as documented) at patient's floor/unit and/or counseling patient: Internal Medicine: Result - Labs CBC & Chem 7: 07/04/18 04:56 07/08/18 05:50 Labs: BMP 07/07/18 07/08/18 17:17 05:50 Sodium 137 138 Potassium 3.9 4.1 Chloride 104 106 Carbon Dioxide 29 27 BUN 19 23 Creatinine 0.68 0.71 Glucose 308 H 191 H Calcium 9.3 9.1 - ABG Interpretation ABG results: PT/INR, D-dimer PT 13.4 Seconds (9.4-12.1) H 07/02/18 07:23 - Attending Attestation I have seen and examined this pt. I have discussed with resident physician Dr Morfin regarding the management plan. Agree with the documentation. <Aaron Morfin - Last Filed: 07/08/18 11:22> (3) UTI (urinary tract infection) Qualifiers: Urinary tract infection type: acute cystitis Hematuria presence: with hematuria Qualified Code(s): N30.01 - Acute cystitis with hematuria (4) Type 2 diabetes mellitus Qualifiers: Diabetes mellitus rn long term care insulin use: with rn long term care use Diabetes mellitus complication status: with circulatory complication Diabetes mellitus complication detail: with other circulatory complications Qualified Code(s): E11.59 - Type 2 diabetes mellitus with other circulatory complications; Z79.4 - [facility] (current) use of insulin (5) CAD (coronary artery disease) Qualifiers: Coronary Disease-Associated Artery/Lesion type: [place] artery [place] vs. transplanted heart: [place] heart Associated angina: with stable angina Qualified Code(s): I25.118 - Atherosclerotic heart disease of [place] coronary artery with other forms of angina pectoris (6) Hypertension Qualifiers: Hypertension type: essential hypertension Qualified Code(s): I10 - Essential (primary) hypertension <Miguel Estrada - Last Filed: 07/08/18 13:27> (2) Type 2 diabetes mellitus Qualifiers: Diabetes mellitus rn long term care insulin use: with [facility] use Diabetes mellitus complication status: with circulatory complication Diabetes mellitus complication detail: with other circulatory complications Qualified Code(s): E11.59 - Type 2 diabetes mellitus with other circulatory complications; Z79.4 - [facility]DC (current) use of insulin (3) UTI (urinary tract infection) Qualifiers: Urinary tract infection type: acute cystitis Hematuria presence: with hematuria Qualified Code(s): N30.01 - Acute cystitis with hematuria
[2018-07-08] MEDS: Multivit/Ca/Min/Fe/FA 1 TAB TABLET PO SCH (09:38)
[2018-07-08] MEDS: Bumetanide 1 MG TABLET PO SCH (09:38)
[2018-07-08] MEDS: Metoprolol 100 MG TABLET PO SCH ×2 (09:38→20:39)
[2018-07-08] MEDS: Loratadine 10 MG TABLET PO SCH (09:38)
[2018-07-08] MEDS: *HR* Metformin 500 MG TABLET PO SCH ×2 (09:38→18:27)
[2018-07-08] MEDS: Isosorbide MONOnitrate (24 HR) 30 MG TAB.ER.24H PO SCH (09:39)
[2018-07-08] MEDS: Insulin LISPRO 300 UNITS/3 ML VIAL SQ SCH ×7 (09:40→20:52)
[2018-07-08] MEDS: Insulin NPH 100 UNIT/ML (x5UNIT) SQ SCH ×2 (09:52→18:26)
[2018-07-08] MEDS: Ibuprofen 400 MG TABLET PO PRN (10:00)
[2018-07-08] MEDS ORDERED: Lactulose 200 GM, Sodium Chloride IRRigation 700 ML RC ONE (14:10)
[2018-07-08] MEDS: Gabapentin 100 MG CAPSULE PO SCH (20:39)
[2018-07-09 06:10] LABS: BUN/Creatinine Ratio 30 (6-26); Blood Urea Nitrogen 22 mg/dL (8-23); Calcium 9.3 mg/dL (8.6-10.3); Carbon Dioxide 29 mEq/L (23-29); Chloride 108 mEq/L (98-107); Glucose 86 mg/dL (70-105); Osmolality,Calculated 295 (280-300); Sodium 141 mEq/L (136-145); eGFR For Non-African Americans > 60 (> 60)
[2018-07-09] MEDS: Budesonide/Formoterol 160/4.5 1 PUFF INH IH SCH (07:51)
--- NOTE | 2018-07-09 08:20 | Internal Med Progress Note ---
Hospitalist Progress Note - Encounter Date of Encounter: 07/09/18 Time of Encounter: 08:17 - Subjective Interval History: Ms. Morgan reports doing much better overnight, but had a lot of bowel movements and diarrhea. Did received lactulose enema yesterday evening, ammonia this morning in 40s. Patient reports feeling like her legs are less weak and has been able to move around better. Denies fevers, chills, sweats, nausea, vomiting, chest pain, palpitations, shortness of breath, abdominal pain, changes in bladder, weakness, loss of sensation, or rash. - Exam Vitals: Temp Pulse Resp BP Pulse Ox 98.5 F 64 19 113/68 95 07/09/18 06:52 07/09/18 06:52 07/09/18 06:52 07/09/18 06:52 07/09/18 06:52 Exam: General: alert, awake, oriented x 4, no acute distress HEENT: moist mucus membranes CV: RRR, no murmurs Lungs: CTAB, no wheezing, rhonchi, or rales Abd: soft, nontender, normal bowel sounds, slightly distended, no fluid wave Msk: 5/5 strength bilaterally, moves all extremities Ext: no edema or cyanosis Skin: warm, dry, intact - Assessment and Plan (1) Hepatic encephalopathy Current Visit: Yes Status: Acute Assessment and Plan: Likely secondary to SIMON with cirrhosis with poor response to lactulose Ammonia of 89 on admission. Ammonia 42 this morning, 89 yesterday. Had multiple large bowel movements and some diarrhea yesterday. But did receive a lactulose enema around 19:00pm Symptoms much improved this morning. -Decrease back to Lactulose 45gm tid, titrate to 2-3 bowel movement per day -Continue with Rifaximin -Will discharge with lactulose enemas as has helped during admission -Also have metformin at 1000mg bid for her diabetes -GI on board -Appetite has been normal, continue with pureed diet. -Follow up with GI outpatient 07/13/18 at 15:00pm. Discharge today with lactulose enemas and counseled family members and patient on appropriate use. (2) SIMON (nonalcoholic steatohepatitis) Current Visit: Yes Status: Chronic Assessment and Plan: Diagnosis since 2004. SIMON with cirrhosis S/P TIPPS procedure 04/24/2018 She has not had ascites since TIPPS procedure, but has been gaining slowly some weight Patient has not been compliant with daily lactulose at home, and when she is she is only having 1-2 bowel movements per day maximum Recent episode of AMS 1 week prior to admission PT 13.4, INR 1.2 (3) UTI (urinary tract infection) Current Visit: Yes Status: Resolved Assessment and Plan: Patient now asymptomatic after completing 3 days course of Ceftriaxone Urine cultures negative -no therapy, continue monitoring for symptoms. (4) Type 2 diabetes mellitus Current Visit: Yes Status: Chronic Assessment and Plan: A1c of 8.4 Poorly controlled Glu 86, down from 191 yesterday with change in metformin -Continue sliding scale insulin -Continue metformin 1000mg bid, this may help with bowel movements as well. (5) CAD (coronary artery disease) Current Visit: No Status: Chronic Assessment and Plan: Known history of CAD Last [facility] was March 2016 with 40% ISR mid LAD, 20% pLCx, 30% mid RCA, 80% small PDA not amenable to intervention. Stress test in 01/24 - negative Echo 12/25 - normal LVEF. Patient is not on aspirin due to profound thrombocytopenia and recurrent variceal bleeds requiring banding. Continue Beta Jeniffer, Statin, Imdur, Sprinonolactone (6) Hypertension Current Visit: No Status: Chronic Assessment and Plan: Known history of htn, bp stable and controlled -Continue with home med for chronic disease management. (7) Pancytopenia Current Visit: No Status: Chronic Assessment and Plan: Known history of pancytopenia WBC 3.5, RBC 3.38, plt 45 DVT Prophylaxis: SCDs due to thrombocytopenia - Time Spent with Patient Total time spent is greater than 50% in coordination of care (as documented) at patient's floor/unit and/or counseling patient: Internal Medicine: Result - Labs CBC & Chem 7: 07/04/18 04:56 07/09/18 05:38 Labs: BMP 07/09/18 05:38 Sodium 141 Potassium 4.0 Chloride 108 H Carbon Dioxide 29 BUN 22 Creatinine 0.73 Glucose 86 Calcium 9.3 - ABG Interpretation ABG results: PT/INR, D-dimer PT 13.4 Seconds (9.4-12.1) H 07/02/18 07:23 Consult Discharge Plan - Plan Referrals: Nikhil Brambila MD [Partnered Physician] - 07/13/18 3:00 pm (Please follow up as schedule...) Anita Marc MD [Primary Care Provider] - Prescriptions: Lactulose 200 gm RC DAILY PRN #3000 mls PRN Reason: See Comments Lactulose 45 gm PO TID 30 Days #2 bottle Rifaximin [Xifaxan] 550 mg PO BID #20 tablet (3) UTI (urinary tract infection) Qualifiers: Urinary tract infection type: acute cystitis Hematuria presence: with hematuria Qualified Code(s): N30.01 - Acute cystitis with hematuria (4) Type 2 diabetes mellitus Qualifiers: Diabetes mellitus termite inspector insulin use: with longterm use Diabetes mellitus complication status: with circulatory complication Diabetes mellitus complication detail: with other circulatory complications Qualified Code(s): E11.59 - Type 2 diabetes mellitus with other circulatory complications; Z79.4 - 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 transplanted heart: [place] heart Associated angina: with stable angina Qualified Code(s): I25.118 - Atherosclerotic heart disease of [place] coronary artery with other forms of angina pectoris (6) Hypertension Qualifiers: Hypertension type: essential hypertension Qualified Code(s): I10 - Essential (primary) hypertension
[2018-07-09] MEDS: Insulin LISPRO 300 UNITS/3 ML VIAL SQ SCH ×4 (08:56→12:23)
[2018-07-09] MEDS: Lactulose Oral Soln 20 GM/30 ML UDC PO SCH (08:57)
[2018-07-09] MEDS: *HR* Metformin 500 MG TABLET PO SCH (08:59)
[2018-07-09] MEDS: Isosorbide MONOnitrate (24 HR) 30 MG TAB.ER.24H PO SCH (09:01)
[2018-07-09] MEDS: Loratadine 10 MG TABLET PO SCH (09:01)
[2018-07-09] MEDS: Multivit/Ca/Min/Fe/FA 1 TAB TABLET PO SCH (09:01)
[2018-07-09] MEDS: Metoprolol 100 MG TABLET PO SCH (09:02)
[2018-07-09] MEDS: Bumetanide 1 MG TABLET PO SCH (09:02)
[2018-07-09] MEDS: Insulin NPH 100 UNIT/ML (x5UNIT) SQ SCH (09:02)
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
[2018-07-09 11:07] VITALS: BP 117/68
[2018-07-09] MEDS ORDERED: Lactulose Oral Soln 20 GM/30 ML UDC PO SCH (15:00)
== END 2018-07-09 13:53 | disposition home or self-care (01) | DRG 442 ==
LOC: 2ANU 17:42 → EMEROOARM 17:42 → SUATTDRO 20:57 → 2ANU 21:15 → SUATTDRO 07-02 19:02
PROVIDERS: ADMIT Pediatrics; ATTEND Internal Medicine

== ENCOUNTER 2018-07-22 16:45 | Inpatient (IN) ==
[2018-07-22] MEDS ORDERED: Aspirin 81 MG TAB.CHEW PO ONE (17:08)
[2018-07-22 17:22] LABS: Mean Platelet Volume 11.2 fL (9.4-12.4)
[2018-07-22 17:24] LABS: Basophils % 1.3 %; Eosinophils # 0.1 K/mcL (0.0-0.6); Hematocrit 33.4 % (35.3-44.9); Hemoglobin 11.6 g/dL (11.5-15.4); Immature Granulocytes % 0.4 % (0-4); Immature Platelets 5.9 % (1.1-6.1); Lymphocytes # 0.5 K/mcL (0.6-4.6); Lymphocytes % 21.6 %; Mean Corpuscular HGB Conc 34.7 g/dL (31.6-35.5); Mean Corpuscular Volume 95.2 fL (83.0-100.0); Monocytes # 0.2 K/mcL (0.0-1.3); Monocytes % 8.1 %; Neutrophils # 1.6 K/mcL (1.6-8.9); Red Blood Count 3.51 M/mcL (3.82-4.97); Red Cell Distribution Width 15.3 % (11.5-14.5); Segmented Neutrophils % 65.6 %
[2018-07-22 17:25] LABS: Platelet Count 40 K/mcL (140-400)
[2018-07-22 17:26] LABS: Platelet Estimate Marked Decrease (Normal)
[2018-07-22 17:33] LABS: INR 1.2; Prothrombin Time 13.5 Seconds (9.4-12.1)
[2018-07-22 17:35] LABS: Activated Partial Thrombo Time 38.4 Seconds (26.0-36.0)
[2018-07-22] MEDS ORDERED: Nitroglycerin 0.4 MG TAB.SUBL SL PRN (17:45)
[2018-07-22 17:46] LABS: BUN/Creatinine Ratio 22 (6-26); Blood Urea Nitrogen 12 mg/dL (8-23); Calcium 9.2 mg/dL (8.6-10.3); Carbon Dioxide 27 mEq/L (23-29); Chloride 108 mEq/L (98-107); Glucose 185 mg/dL (70-105); Osmolality,Calculated 297 (280-300); Potassium 3.9 mEq/L (3.5-5.1); Sodium 141 mEq/L (136-145); eGFR For Non-African Americans > 60 (> 60)
[2018-07-22 17:47] LABS: Troponin I < 0.03 ng/mL (< 0.04)
--- NOTE | 2018-07-22 18:19 | Emergency Department Note ---
Disposition Clinical Impression: Hyperammonemia, S/P TIPS (transjugular intrahepatic portosystemic shunt), Thrombocytopenia, SIMON (nonalcoholic steatohepatitis) Cirrhosis of liver with ascites Qualifiers: Hepatic cirrhosis type: unspecified hepatic cirrhosis Qualified Code(s): K74.60 - Unspecified cirrhosis of liver Dyspnea Qualifiers: Dyspnea type: unspecified Qualified Code(s): R06.00 - Dyspnea, unspecified Chest pain Qualifiers: Chest pain type: unspecified Qualified Code(s): R07.9 - Chest pain, unspecified Disposition: Admitted As Inpatient Condition: Fair Referrals: Anita Marc MD [Primary Care Provider] - Forms: ED Satisfaction Letter Time of Disposition: 18:42 Chest Pain HPI - General Chief Complaint: ED Chest Pain Stated Complaint: CP/SOB Time Seen by Provider: 07/22/18 17:02 Source: patient Limitations: no limitations Vital Signs Reviewed: Yes Nursing Notes Reviewed: Yes - History of Present Illness HPI Narrative: Patient presents to the ED with the chief complaint of chest pain and shortness breath. Patient has history of coronary artery disease and does have 2 stents. States she has been having some pain intermittently over the last 2 days, but at 3 PM today she had a quite significant pain in her left chest that radiated into her left shoulder, jaw and down her left arm. Was a heavy feeling like someone was sitting on her. Denies any fever or chills. She does have a fairly significant increase in her exertional dyspnea associated with a nonproductive cough. No abdominal pain, nausea, vomiting. She does have chronic diarrhea from Simon. He states that she has a history of low platelets and her hat and cap opener's states that they want to do another heart catheter platelets of been too low to do so. Severity scale (1-10): 6 - Related Data Home Medications Medication Instructions Recorded Confirmed Albuterol Sulfate [Ventolin Hfa] 2 puff IH Q4H PRN 06/05/18 07/02/18 Bumetanide [Bumex] 1 mg PO DAILY 06/05/18 07/02/18 Fluticasone Propionate Nasal 1 spr NS DAILY PRN 06/05/18 07/02/18 [Flonase] Fluticasone/Vilanterol [Breo 1 puff IH DAILY 06/05/18 07/02/18 Ellipta 100-25 Mcg INH] Gabapentin [Neurontin] 300 mg PO HS 06/05/18 07/02/18 Insulin NPH Human Isophane 60 unit SQ BID 06/05/18 07/02/18 [Novolin N] Insulin Regular, Human [Novolin R] 10 - 55 unit SQ TIDWM 06/05/18 07/02/18 Ipratropium/Albuterol Neb [Duoneb] 3 ml IH Q6HR PRN 06/05/18 07/02/18 Isosorbide MONOnitrate (24 HR) 30 mg PO DAILY 06/05/18 07/02/18 [Imdur] LORazepam [Ativan] 0.5 mg PO Q8H PRN 06/05/18 07/02/18 Loratadine [Claritin] 10 mg PO DAILY 06/05/18 07/02/18 Meclizine HCl [Verticalm] 25 mg PO DAILY PRN 06/05/18 07/02/18 Multivitamin [One Daily 1 tab PO DAILY 06/05/18 07/02/18 Multivitamin] Rosuvastatin [Crestor] 20 mg PO HS 06/05/18 07/02/18 Spironolactone [Aldactone] 50 mg PO DAILY 06/05/18 07/02/18 metFORMIN [Glucophage] 500 mg PO BIDWM 06/05/18 07/02/18 Metoprolol Tartrate 100 mg PO BID 07/02/18 07/02/18 Previous Rx's Medication Instructions Recorded Lactulose 45 gm PO TID 30 Days #2 bottle 07/07/18 Rifaximin [Xifaxan] 550 mg PO BID #20 tablet 07/07/18 Lactulose 200 gm RC DAILY PRN #3000 mls 07/09/18 Allergies Allergy/AdvReac Type Severity Reaction Status Date / Time Hydroxychloroquine Allergy Hives Verified 06/03/18 18:09 [From Plaquenil] atorvastatin [From Lipitor] AdvReac Muscle Pain Verified 06/03/18 18:09 escitalopram [From Lexapro] AdvReac See Verified 06/03/18 18:09 Comments Review of Systems: As reviewed in the HPI. All other systems reviewed are negative or normal. Chest Pain PMH - Past Medical History Medical history: Reports: cirrhosis, coronary artery disease, diabetes, fibromyalgia, GERD, hyperlipidemia, hypertension, liver disease, myocardial infarction, thyroid disease Surgical history: Reports: hysterectomy, other (TIPS) Psychiatric history: Reports: anxiety, depression, previous psychiatric hospitalization - Social History Smoking Status: Never smoker Alcohol use: Reports: none Drug use: Reports: none Physical Exam CONSTITUTIONAL: [chronically ill appearing, alert and in no acute distress] EYES: [EOMI, clear conjunctiva, PERRLA] HENT: [Normocephalic, atraumatic, moist mucus membranes, normal oropharynx] NECK: [normal inspection, full ROM, trachea midline, no obvious swelling] PULMONARY: [normal lung sounds bilaterally, normal chest rise and fall, no respiratory distress or stridor, no wheezes, no rales, no rhonchi CARDIOVASCULAR: [regular rate, regular rhythm, normal heart sounds, no murmurs, distal extremities are warm and well perfused] GASTROINSTESTINAL: [soft, non-tender, non-rigid, baseline distended, no guarding , no rebound, normal bowel sounds] GENITOURINARY/RECTAL: [deferred] NEUROLOGIC: [Alert, oriented x3, normal speech, moves all extremities] EXTREMITIES: [Normal inspection, full ROM, no tenderness, + pedal edema, normal capillary refill] MUSCULOSKELETAL: [no gross deformities, atraumatic] SKIN: [No cyanosis, no diaphoresis, normal color, warm, no rash] PSYCHIATRIC: [normal mood and affect] - General Limitations: no limitations General appearance: alert Course Course Narrative: patient with CP, anginal equiv, and exertional dyspnea. will workup and likely admit. Vital Signs Temperature 98.8 F 07/22/18 16:50 Pulse Rate 74 07/22/18 16:50 Respiratory Rate 20 07/22/18 16:50 Blood Pressure 142/65 07/22/18 16:50 O2 Sat by Pulse Oximetry 97 07/22/18 16:50 Temperature 98.8 F 07/22/18 17:01 Pulse Rate 74 07/22/18 18:37 Respiratory Rate 21 07/22/18 18:37 Blood Pressure 131/63 07/22/18 18:37 O2 Sat by Pulse Oximetry 96 07/22/18 18:37 Oxygen Delivery Oxygen Delivery Room Air Chest Pain - Medical Records Medical records reviewed: Yes I reviewed the patient's medical records. - Lab Data Lab results reviewed: Yes I reviewed the patient's lab results. Result diagrams: 07/22/18 17:13 07/22/18 17:13 Lab Results 07/22/18 07/22/18 07/22/18 Range/Units 17:13 17:13 17:13 WBC 2.4 L (4.3-11.1) K/mcL RBC 3.51 L (3.82-4.97) M/mcL Hgb 11.6 (11.5-15.4) g/dL Hct 33.4 L (35.3-44.9) % MCV 95.2 (83.0-100.0) fL MCH 33.0 (28.0-33.3) pg MCHC 34.7 (31.6-35.5) g/dL RDW 15.3 H (11.5-14.5) % Plt Count 40 L (140-400) K/mcL MPV 11.2 (9.4-12.4) fL Immature Gran % 0.4 (0-4) % Seg Neutrophils % 65.6 % Lymphocytes % 21.6 % Monocytes % 8.1 % Eosinophils % 3.0 % Basophils % 1.3 % Neutrophils # 1.6 (1.6-8.9) K/mcL Lymphocytes # 0.5 L (0.6-4.6) K/mcL Monocytes # 0.2 (0.0-1.3) K/mcL Eosinophils # 0.1 (0.0-0.6) K/mcL Basophils # 0.0 (0.0-0.2) K/mcL Platelet Estimate Marked Decrease L (Normal) Immature Plt Fraction 5.9 (1.1-6.1) % PT 13.5 H (9.4-12.1) Seconds INR 1.2 APTT 38.4 H (26.0-36.0) Seconds Sodium (136-145) mEq/L Potassium (3.5-5.1) mEq/L Chloride (98-107) mEq/L Carbon Dioxide (23-29) mEq/L BUN (8-23) mg/dL Creatinine (0.60-1.20) mg/dL Est GFR ( Amer) (> 60) Est GFR (Non-Af Amer) (> 60) BUN/Creatinine Ratio (6-26) Glucose (70-105) mg/dL Calculated Osmolality (280-300) Calcium (8.6-10.3) mg/dL Total Bilirubin (0.3-1.0) mg/dL Direct Bilirubin (0.0-0.2) mg/dL Indirect Bilirubin (0.0-1.2) mg/dL AST (13-39) Units/L ALT (7-52) Units/L Alkaline Phosphatase (34-104) Units/L Ammonia (16-53) mcmol/L Troponin I (< 0.04) ng/mL B-Natriuretic Peptide 254 H (Less than 100) pg/mL Serum Total Protein (6.4-8.9) g/dL Albumin (3.5-5.7) g/dL Globulin (2.4-3.5) g/dL Albumin/Globulin Ratio (1.1-2.2) 07/22/18 07/22/18 Range/Units 17:13 17:52 WBC (4.3-11.1) K/mcL RBC (3.82-4.97) M/mcL Hgb (11.5-15.4) g/dL Hct (35.3-44.9) % MCV (83.0-100.0) fL MCH (28.0-33.3) pg MCHC (31.6-35.5) g/dL RDW (11.5-14.5) % Plt Count (140-400) K/mcL MPV (9.4-12.4) fL Immature Gran % (0-4) % Seg Neutrophils % % Lymphocytes % % Monocytes % % Eosinophils % % Basophils % % Neutrophils # (1.6-8.9) K/mcL Lymphocytes # (0.6-4.6) K/mcL Monocytes # (0.0-1.3) K/mcL Eosinophils # (0.0-0.6) K/mcL Basophils # (0.0-0.2) K/mcL Platelet Estimate (Normal) Immature Plt Fraction (1.1-6.1) % PT (9.4-12.1) Seconds INR APTT (26.0-36.0) Seconds Sodium 141 (136-145) mEq/L Potassium 3.9 (3.5-5.1) mEq/L Chloride 108 H (98-107) mEq/L Carbon Dioxide 27 (23-29) mEq/L BUN 12 (8-23) mg/dL Creatinine 0.55 L (0.60-1.20) mg/dL Est GFR ( Amer) > 60 (> 60) Est GFR (Non-Af Amer) > 60 (> 60) BUN/Creatinine Ratio 22 (6-26) Glucose 185 H (70-105) mg/dL Calculated Osmolality 297 (280-300) Calcium 9.2 (8.6-10.3) mg/dL Total Bilirubin 1.9 H (0.3-1.0) mg/dL Direct Bilirubin 0.5 H (0.0-0.2) mg/dL Indirect Bilirubin 1.4 H (0.0-1.2) mg/dL AST 36 (13-39) Units/L ALT 29 (7-52) Units/L Alkaline Phosphatase 153 H (34-104) Units/L Ammonia 92 H (16-53) mcmol/L Troponin I < 0.03 (< 0.04) ng/mL B-Natriuretic Peptide (Less than 100) pg/mL Serum Total Protein 6.1 L (6.4-8.9) g/dL Albumin 3.3 L (3.5-5.7) g/dL Globulin 2.8 (2.4-3.5) g/dL Albumin/Globulin Ratio 1.2 (1.1-2.2) - Radiology Data Radiology results reviewed: Yes I reviewed the patient's radiology results. - EKG Data EKG attestation: Yes I reviewed and interpreted this EKG. EKG results narrative: Sinus rhythm, rate 77, normal axis, QTC 438, no acute ischemic changes Attestation Statement - Attestation Attestation: I examined this patient and my medical decision-making was reviewed with the Resident Physician, Dr. Cuellar. I agree with the documented findings, disposition and treatment plan as described except to the extent set forth below. Pt is a 63 yo wf, with c/o 2 d of internittent CP and exertional dyspnea, most recent episode was at 1500 today, with severe L sided CP. Pt with CAD and prior stent placement, who reports that she has been haivng CP, and her Store Team Member wants to do a heart cath, but unable due to her thrombocytopenia secondary to SIMON. Pt also with chronic diarrhea due to lactulose, and abd distention. I agree with the PE findings as documented, VSS. Pt received ASA/nitro, EKG with NSR and no acute ischemia. Labs with dec platelets, incr ammonia. Trop neg. CXR with pulm edema, trace effusion. Will be admitted for CP.
[2018-07-22 18:28] LABS: Alanine Aminotransferase 29 Units/L (7-52); Albumin 3.3 g/dL (3.5-5.7); Albumin/Globulin Ratio 1.2 (1.1-2.2); Alkaline Phosphatase 153 Units/L (34-104); Aspartate Amino Transferase 36 Units/L (13-39); Bilirubin,Direct 0.5 mg/dL (0.0-0.2); Bilirubin,Indirect 1.4 mg/dL (0.0-1.2); Bilirubin,Total 1.9 mg/dL (0.3-1.0); Globulin 2.8 g/dL (2.4-3.5); Total Protein 6.1 g/dL (6.4-8.9)
[2018-07-22] MEDS ORDERED: Furosemide 40 MG/4 ML VIAL IVP ONE (18:40)
[2018-07-22 18:51] LABS: Bilirubin,Urine Small (Negative); Blood,Urine Negative (Negative); Clarity,Urine Clear (Clear); Color,Urine Dark Yellow (Yellow); Glucose,Urine (UA) >=1000 mg/dL (Normal); Ketones,Urine Negative (Negative); Leukocyte Esterase,Urine Negative (Negative); Nitrite,Urine Negative (Negative); Protein,Urine 30 mg/dL (Neg-Trace); Specific Gravity,Urine > 1.030 (1.010-1.025); Urobilinogen,Urine >=8.0 mg/dL (Normal)
[2018-07-22 18:52] LABS: Bacteria,Urine None Seen per hpf (None-Few); Hyaline Casts,Urine None Seen per lpf (None-Few); RBC,Urine 0-3 per hpf (0-3); Squamous Epithelial Cell,Urine Many per lpf (None-Few)
[2018-07-22 19:10] LABS: Yeast,Urine Few per hpf (None Seen)
[2018-07-22] MEDS ORDERED: Naloxone 0.4 MG/ML INJ IVP PRN (19:46)
--- NOTE | 2018-07-22 20:38 | Event Note ---
Date of Encounter: 07/23/18 Time of Encounter: 20:37 Patient seen and examined. Case discussed with resident. See history of present illness for further details. 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 Patient has been reporting intermittent chest pain with a past 2 days which peaked in intensity around 3 PM this afternoon while asleep waking her up, described as left-sided, radiating to her left shoulder, jaw and down her left arm. Patient also noted nausea but did not vomit. Chest pain described as heaviness as if someone was sitting on her chest. She took sublingual nitroglycerin at home which did not improve her pain. Patient states current presentation of her chest pain was similar to that which occurred prior to her last MN. Also noted was increased exertional dyspnea associated with nonproductive cough. She has noted worsening dyspnea with exertion and several pound weight gain over the past 3 weeks. She does endorse symptoms of orthopnea. Initial troponin was negative and no significant EKG findings were noted. Patient did receive a loading dose of aspirin. Platelet count currently at 40. Patient is currently followed by Dr. Lucero who has discussed taking the patient back to the [facility], however, has been unable to do so due to her low platelets. * Atypical chest pain rule out ACS: Patient reports Chest pain seems to have resolved after taking aspirin here in the ED. Negative troponins. Negative EKG. patient received loading dose of aspirin in the ED despite pancytopenia. She is currently asymptomatic chest pain-free. Trend troponin. Given complexity of patient's current multiple comorbidities, would recommend cardiology consult before proceeding with stress testing. Of note, patient presented with atypical chest pain last May at which time ACS was ruled out. Further cardiac workup was not warranted and deemed high risk given patient's chronic pancytopenia. Chest pain at the time was described as left-sided, nonradiating, nonpleuritic. EKG and troponins were unremarkable at the time. Left heart catheter was performed in 2015 significant for 80% stenosis of the mid RCA. Patient currently not on aspirin due to her pancytopenia. Patient was resumed on her metoprolol and isosorbide medications prior to discharge. * We will trend troponins. Monitor on telemetry. Patient did receive loading dose of aspirin despite pancytopenia with low platelets. Cardiology consult. * Dyspnea upon exertion: Reported weight gain over the past few weeks. Elevated BNP; vascular congestion and small right pleural effusion noted on chest x-ray. B/l crackles appreciated at the bases. Concern for mild CHF exacerbation. Patient had a echo in May of this year which showed a left ventricular ejection fraction of 65%; normal right ventricular structure and function; borderline pulmonary hypertension; I's and O's, daily weights. Patient received 1 dose of 40 mg of Lasix IV push in the ED with good urine output. We will consider continued Lasix if blood pressure tolerates. Echo in the morning. * Abdominal distention: Patient notes increasing abdominal distention. She had an ultrasound performed on Tuesday for possible paracentesis which showed no evidence of ascites. However, she feels her abdomen has progressively gotten more distended since then. Denies any abdominal pain per se. We will obtain ultrasound of the abdomen. 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 Patient's ammonia level elevated compared to previous assessments. Continue home regimen of lactulose and rifaximin. Consider titrating to 3-4 loose bowel movements a day. * History of variceal bleed status post banding: No evidence of bleed at this time in the setting of thrombocytopenia. Patient received loading dose of aspirin. We will monitor closely. * Pancytopenia: Patient's counts seem to be at baseline. No evidence of fever or bleed. We will monitor * Thrombocytopenia: In the setting of liver cirrhosis. Platelet count stable and appears to be at baseline ( 30s40s). Hemoglobin appears stable. No evidence of bleeding at this time. We will monitor closely given patient received loading dose of aspirin. Type and cross
[2018-07-22] MEDS ORDERED: Dextrose Gel 15 GM/37.5 ML TUBE PO PRN ×2 (20:46)
[2018-07-22] MEDS ORDERED: D5% in Water 1,000 ML IVC PRN (20:46)
[2018-07-22] MEDS ORDERED: *HR* Dextrose 50 % in Water (Syg) 50 ML SYRINGE IVP PRN (20:46)
[2018-07-22] MEDS ORDERED: Insulin LISPRO 300 UNITS/3 ML VIAL SQ SCH (21:00)
[2018-07-22] MEDS ORDERED: Fluticasone Propionate Nasal 50 MCG/SPRAY BOTTLE NS PRN (22:28)
[2018-07-22] MEDS ORDERED: Lactulose 200 GM/300 ML (for enema) RC PRN (22:28)
[2018-07-22] MEDS ORDERED: Ipratropium/Albuterol Neb 3 ML IH PRN (22:28)
[2018-07-22] MEDS: Lactulose Oral Soln 20 GM/30 ML UDC PO SCH (23:23)
[2018-07-22] MEDS ORDERED: Lactulose 200 GM, Sodium Chloride IRRigation 700 ML RC PRN (23:31)
--- NOTE | 2018-07-23 00:42 | Internal Med History&Physical ---
<Kartik Avalos A - Last Filed: 07/23/18 00:46> Date of Encounter: 07/23/18 Internal Medicine - H&P: HPI History of present illness: Ms. Morgan is a 63 year old female Internal Medicine - H&P: Meds Albuterol Sulfate [Ventolin Hfa] 2 puff IH Q4H PRN 06/05/18 [History] Bumetanide [Bumex] 1 mg PO DAILY 06/05/18 [History] Fluticasone Propionate Nasal [Flonase] 1 spr NS DAILY PRN 06/05/18 [History] Fluticasone/Vilanterol [Breo Ellipta 100-25 Mcg INH] 1 puff IH DAILY 06/05/18 [ History] Gabapentin [Neurontin] 300 mg PO HS 06/05/18 [History] Insulin NPH Human Isophane [Novolin N] 50 unit SQ BID 06/05/18 [History] Insulin Regular, Human [Novolin R] 10 - 55 unit SQ TIDWM 06/05/18 [History] Ipratropium/Albuterol Neb [Duoneb] 3 ml IH Q6HR PRN 06/05/18 [History] Isosorbide MONOnitrate (24 HR) [Imdur] 30 mg PO DAILY 06/05/18 [History] LORazepam [Ativan] 0.5 mg PO Q8H PRN 06/05/18 [History] Loratadine [Claritin] 10 mg PO DAILY 06/05/18 [History] Meclizine HCl [Verticalm] 25 mg PO DAILY PRN 06/05/18 [History] Multivitamin [One Daily Multivitamin] 1 tab PO DAILY 06/05/18 [History] Rosuvastatin [Crestor] 20 mg PO HS 06/05/18 [History] Spironolactone [Aldactone] 50 mg PO DAILY 06/05/18 [History] metFORMIN [Glucophage] 500 mg PO BIDWM 06/05/18 [History] Metoprolol Tartrate 100 mg PO BID 07/02/18 [History] Rifaximin [Xifaxan] 550 mg PO BID #20 tablet 07/07/18 [Rx] Lactulose 200 gm RC DAILY PRN #3000 mls 07/09/18 [Rx] Lactulose 60 gm PO TID 07/22/18 [History] 3 Allergy/AdvReac Type Severity Reaction Status Date / Time Hydroxychloroquine Allergy Hives Verified 06/03/18 18:09 [From Plaquenil] atorvastatin [From Lipitor] AdvReac Muscle Pain Verified 06/03/18 18:09 escitalopram [From Lexapro] AdvReac See Verified 06/03/18 18:09 Comments All Systems PM: A 10-system review of systems was performed and is negative for pertinent findings except as documented above in the HPI. - Constitutional Vitals: Temp Pulse Resp BP Pulse Ox 98.1 F 78 16 122/72 96 07/22/18 20:51 07/22/18 20:51 07/22/18 20:51 07/22/18 20:51 07/22/18 20:51 Internal Med - H&P Results - Labs CBC & Chem 7: 07/22/18 17:13 07/22/18 17:13 Labs: Cardiac Enzymes 07/22/18 Range/Units 23:11 Troponin I < 0.03 (< 0.04) ng/mL - Time Spent With Patient Total time spent is greater than 50% in coordination of care (as documented) at patient's floor/unit and/or counseling patient: - Attending Attestation Patient seen and examined. Case discussed with resident. See history of present illness for further details. 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 Patient has been reporting intermittent chest pain with a past 2 days which peaked in intensity around 3 PM this afternoon while asleep waking her up, described as left-sided, radiating to her left shoulder, jaw and down her left arm. Patient also noted nausea but did not vomit. Chest pain described as heaviness as if someone was sitting on her chest. She took sublingual nitroglycerin at home which did not improve her pain. Patient states current presentation of her chest pain was similar to that which occurred prior to her last FL. Also noted was increased exertional dyspnea associated with nonproductive cough. She has noted worsening dyspnea with exertion and several pound weight gain over the past 3 weeks. She does endorse symptoms of orthopnea. Initial troponin was negative and no significant EKG findings were noted. Patient did receive a loading dose of aspirin. Platelet count currently at 40. Patient is currently followed by Dr. Lucero who has discussed taking the patient back to the [facility], however, has been unable to do so due to her low platelets. * Atypical chest pain rule out ACS: Patient reports Chest pain seems to have resolved after taking aspirin here in the ED. Negative troponins. Negative EKG. patient received loading dose of aspirin in the ED despite pancytopenia. She is currently asymptomatic chest pain-free. Trend troponin. Given complexity of patient's current multiple comorbidities, would recommend cardiology consult before proceeding with stress testing. Of note, patient presented with atypical chest pain last May at which time ACS was ruled out. Further cardiac workup was not warranted and deemed high risk given patient's chronic pancytopenia. Chest pain at the time was described as left-sided, nonradiating, nonpleuritic. EKG and troponins were unremarkable at the time. Left heart catheter was performed in 2015 significant for 80% stenosis of the mid RCA. Patient currently not on aspirin due to her pancytopenia. Patient was resumed on her metoprolol and isosorbide medications prior to discharge. * We will trend troponins. Monitor on telemetry. Patient did receive loading dose of aspirin despite pancytopenia with low platelets. Cardiology consult. * Dyspnea upon exertion: Reported weight gain over the past few weeks. Elevated BNP; vascular congestion and small right pleural effusion noted on chest x-ray. B/l crackles appreciated at the bases. Concern for mild CHF exacerbation. Patient had a echo in May of this year which showed a left ventricular ejection fraction of 65%; normal right ventricular structure and function; borderline pulmonary hypertension; I's and O's, daily weights. Patient received 1 dose of 40 mg of Lasix IV push in the ED with good urine output. We will consider continued Lasix if blood pressure tolerates. Echo in the morning. * Abdominal distention: Patient notes increasing abdominal distention. She had an ultrasound performed on Tuesday for possible paracentesis which showed no evidence of ascites. However, she feels her abdomen has progressively gotten more distended since then. Denies any abdominal pain per se. We will obtain ultrasound of the abdomen. 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 Patient's ammonia level elevated compared to previous assessments. Continue home regimen of lactulose and rifaximin. Consider titrating to 3-4 loose bowel movements a day. * History of variceal bleed status post banding: No evidence of bleed at this time in the setting of thrombocytopenia. Patient received loading dose of aspirin. We will monitor closely. * Pancytopenia: Patient's counts seem to be at baseline. No evidence of fever or bleed. We will monitor * Thrombocytopenia: In the setting of liver cirrhosis. Platelet count stable and appears to be at baseline ( 30s40s). Hemoglobin appears stable. No evidence of bleeding at this time. We will monitor closely given patient received loading dose of aspirin. Type and cross <Peyton Goodwin - Last Filed: 07/23/18 07:01> Date of Encounter: 07/23/18 Time of Encounter: 21:00 Internal Medicine - H&P: HPI Chief complaint: chest pain Admitted From: Home Plans for Post Hospital Care: Home History of present illness: Ms. Morgan is a 63-year-old female with past medical history of cirrhosis, TIPS, diabetes mellitus, FL with stent 1 (2013), and esophageal varices presenting to the emergency department with chest pain and shortness of breath. Patient states her chest pain began at 15:00, waking her from sleep. The pain was described as dull and located in left chest with radiation down left arm and into neck, radiating pain was described as sharp. Initially the chest pain was 6/10 and was not relieved after she took 1 NTG tablet. Her chest pain was decreased after additional NTG tablets and aspirin given in the ED; she is chest pain-free at time of my encounter. Her chest pain is not positional or pleuritic in nature. She admits to associated nausea and a dry, nonproductive cough. Denies vomiting, diaphoresis, fever, or chills. This chest pain feels similar to when she had her FL in 2013. She reports shortness of breath 4 days , but became worse today after her chest pain started, she describes getting more short of breath despite exerting herself less. Endorses difficulty breathing while lying flat--per patient's this is new for the patient, but been going on for 2-3 weeks. Although she denies abdominal pain she has felt bloated for the last 7-10 days; she was scheduled for a paracentesis 4 days ago but it was canceled because there was not enough fluid on ultrasound. ED course: Patient was afebrile, hemodynamically stable, and saturating well on room air throughout her time in the ED. Initial lab work shows leukopenia WBC 2.4, thrombocytopenia platelets 40, INR 1.2, ammonia 92, troponin negative, BNP 254. Her EKG showed no signs of acute ischemia. CXR demonstrates right-sided pleural effusion and vascular congestion. Loading dose of aspirin was given. Past Med Surg Social Fam HX - Past Medical History Medical history: cirrhosis, coronary artery disease, diabetes, fibromyalgia, GERD, hyperlipidemia, hypertension, liver disease, myocardial infarction, thyroid disease Additional medical history: estuardo spleen, sleep apnea, varices, stent x1 Psychiatric history: anxiety, depression, previous psychiatric hospitalization - Past Surgical History Surgical History: hysterectomy, other Additional surgical history: paracentesis. 04/21/18 PARACENTESIS @[facility] IR DEPT. TIPS 04/24/2018 - Social History Smoking Status: Never smoker Smokeless Tobacco Status: No Alcohol use: none Drug use: none - Family History Mother Living Status: Hx Family Cardiac Disorders: Yes (CAD) Hx Family Respiratory Disorders: Yes Hx Family Cancer: Yes Father Living Status: Hx Family Cardiac Disorders: Yes Hx Family Endocrine Disorder: Yes All Systems PM: A 10-system review of systems was performed and is negative for pertinent findings except as documented above in the HPI. - Constitutional Constitutional: as per HPI, no anorexia - Cardiovascular Cardiovascular ROS IM: as per HPI, no edema - Respiratory Respiratory: as per HPI, no chest congestion - Gastrointestinal Gastrointestinal: as per HPI - Genitourinary Genitourinary: no difficulty urinating - Constitutional Vitals: Temp Pulse Resp BP Pulse Ox 98.1 F 78 16 122/72 96 07/22/18 20:51 07/22/18 20:51 07/22/18 20:51 07/22/18 20:51 07/22/18 20:51 Exam: General: vital signs noted, no acute distress,AAO x3 Head: normocephalic, atraumatic Eyes: EOMI, PERRL, sclera anicteric ENT: moist oral mucous membranes Neck: supple, trachea midline Cardio: RRR; no murmurs, gallops, rubs; + S1/S2; no edema Chest: symmetric chest rise Pulm: diffuse rales on right, left basilar rales, no wheezes or rhonchi, no respiratory distress Abd: soft, nontender, distended, normal bowel sounds Neuro: CN II-XII grossly intact; no focal or speech deficit, no facial droop, moves all extremities spontaneously; mentating well Ext: no lower extremity edema; 2+/4 pedal pulses equal bilaterally, no gross deformities MSK: no visible deformities, no joint swelling Psych: normal mood and affect, cooperative, answers questions appropriately Skin: warm, dry, pale, intact; no rash, vesicles, or mottling Internal Med - H&P Results - Labs CBC & Chem 7: 07/22/18 17:13 07/22/18 17:13 Labs: Cardiac Enzymes 07/22/18 Range/Units 23:11 Troponin I < 0.03 (< 0.04) ng/mL - Assessment and plan (1) Chest pain Current Visit: Yes Status: Resolved Assessment and plan: Resolved Atypical presentation--will rule out ACS CXR reveals right-sided pleural effusion and some vascular congestion Echo May 2018 shows LVEF 65%, borderline pulmonary hypertension, normal RV structure and function Absence of acute ischemic changes on EKG compared to previous EKG Negative troponin 2 Loading dose of aspirin given in ED Trend troponin 1 Echocardiogram in morning Consult cardiology Qualifiers: Chest pain type: unspecified Qualified Code(s): R07.9 - Chest pain, unspecified (2) Pancytopenia Current Visit: Yes Status: Chronic Assessment and plan: Pancytopenia in the setting of liver cirrhosis No active signs of bleeding, but continue to monitor Follow CBC (3) Liver cirrhosis secondary to CONNELLY Current Visit: Yes Status: Chronic Assessment and plan: Followed by Dr. Brambila April 2018 transjugular intrahepatic portosystemic shunt placement Continue home meds lactulose and rifaximin (4) Hyperammonemia Current Visit: Yes Status: Acute Assessment and plan: Ammonia 92 Not currently encephalopathic--mentating well, answering questions appropriately , appropriate behavior, AAOx3 Admitted June 2018 for hepatic encephalopathy--rifaximin was added, lactulose increased Continue home dose lactulose for now Continue to monitor for signs of encephalopathy (5) Type 2 diabetes mellitus Current Visit: Yes Status: Chronic Assessment and plan: Low-dose sliding scale insulin Accu-cheks AC HS Diabetic diet Qualifiers: Diabetes mellitus senior living insulin use: with senior living use Diabetes mellitus complication status: with circulatory complication Diabetes mellitus complication detail: with other circulatory complications Qualified Code(s): E11.59 - Type 2 diabetes mellitus with other circulatory complications; Z79.4 - intermediate (current) use of insulin (6) Thrombocytopenia Current Visit: Yes Status: Chronic Assessment and plan: Initial platelet count 40 (baseline appears to be 30's-40's) Received loading dose ASA in ED--no signs of active bleeding, continue to monitor - Time Spent With Patient Total time spent is greater than 50% in coordination of care (as documented) at patient's floor/unit and/or counseling patient:
[2018-07-23 05:48] LABS: Basophils % 0.6 %; Eosinophils % 2.3 %; Hematocrit 31.7 % (35.3-44.9); Hemoglobin 10.9 g/dL (11.5-15.4); Lymphocytes # 0.4 K/mcL (0.6-4.6); Lymphocytes % 24.6 %; Mean Corpuscular HGB Conc 34.4 g/dL (31.6-35.5); Mean Corpuscular Hemoglobin 32.3 pg (28.0-33.3); Mean Corpuscular Volume 94.1 fL (83.0-100.0); Mean Platelet Volume 10.8 fL (9.4-12.4); Monocytes # 0.1 K/mcL (0.0-1.3); Monocytes % 8.2 %; Neutrophils # 1.1 K/mcL (1.6-8.9); Red Blood Count 3.37 M/mcL (3.82-4.97); Segmented Neutrophils % 64.3 %
[2018-07-23 05:50] LABS: Platelet Count 35 K/mcL (140-400)
[2018-07-23 06:06] LABS: Alanine Aminotransferase 23 Units/L (7-52); Albumin/Globulin Ratio 1.2 (1.1-2.2); Alkaline Phosphatase 147 Units/L (34-104); Aspartate Amino Transferase 32 Units/L (13-39); BUN/Creatinine Ratio 23 (6-26); Bilirubin,Total 1.7 mg/dL (0.3-1.0); Blood Urea Nitrogen 13 mg/dL (8-23); Calcium 8.9 mg/dL (8.6-10.3); Carbon Dioxide 26 mEq/L (23-29); Chloride 106 mEq/L (98-107); Globulin 2.5 g/dL (2.4-3.5); Glucose 362 mg/dL (70-105); Osmolality,Calculated 301 (280-300); Potassium 3.7 mEq/L (3.5-5.1); Sodium 138 mEq/L (136-145); Total Protein 5.5 g/dL (6.4-8.9); eGFR For Non-African Americans > 60 (> 60)
[2018-07-23 06:15] LABS: Platelet Estimate Marked Decrease (Normal)
[2018-07-23] MEDS: Multivit/Ca/Min/Fe/FA 1 TAB TABLET PO SCH (08:12)
[2018-07-23] MEDS: Bumetanide 1 MG TABLET PO SCH (08:12)
[2018-07-23] MEDS: Metoprolol 100 MG TABLET PO SCH ×2 (08:12→21:11)
[2018-07-23] MEDS: Insulin LISPRO 300 UNITS/3 ML VIAL SQ SCH ×4 (08:13→21:12)
[2018-07-23] MEDS: Isosorbide MONOnitrate (24 HR) 30 MG TAB.ER.24H PO SCH (08:13)
[2018-07-23] MEDS: Lactulose Oral Soln 20 GM/30 ML UDC PO SCH ×3 (08:16→21:12)
[2018-07-23] MEDS: (Breo Ellipta 100-25 Mcg Inh) IH SCH (09:01)
--- NOTE | 2018-07-23 11:59 | Internal Med Progress Note ---
Hospitalist Progress Note - Encounter Date of Encounter: 07/23/18 Time of Encounter: 08:25 - Subjective Interval History: Patient is sitting up in bed. Denies any new complaints at this time. She has been compliant with her lactulose but has been having only one or 2 bowel movements every day. She denies any chest pain at this time. No shortness of breath or palpitations. - Exam Vitals: Temp Pulse Resp BP Pulse Ox 97.4 F L 71 18 119/68 95 07/23/18 11:36 07/23/18 11:36 07/23/18 11:36 07/23/18 11:36 07/23/18 11:36 Exam: General: Patient is alert, no acute distress, oriented x 3 Respiratory: Good respiratory effort. Normal breath sounds. No wheezing or crackles. Cardiovascular: Regular rate and rhythm. s1 and s2 normal No clicks, rubs, gallops, or murmurs. Pedal edema bilaterally Abdomen: Abdomen is soft, distended nontender. Bowel sounds are present Musculoskeletal: Spontaneously moving all extremities Skin: warm, dry, intact. Neuro: Alert oriented x 3 normal cranial nerves, no focal deficits - Assessment and Plan (1) Chest pain Current Visit: Yes Status: Acute Assessment and Plan: Atypical chest pain. Reviewing records per last left heart catheterization, patient did have significant stenosis of mid right coronary artery. However given her pancytopenia and severe thrombocytopenia, she is not a candidate for long-term antiplatelet therapy or stents as a result. Continue medical management. Cardiology consulted. (2) Cirrhosis of liver with ascites Current Visit: Yes Status: Acute Assessment and Plan: Continue supportive care. On multivitamins. Also on Bumex for pedal edema. (3) Hyperammonemia Current Visit: Yes Status: Acute Assessment and Plan: Continue lactulose and rifaximin. We will up titrate lactulose so that patient has 2-3 bowel movements daily. (4) Pancytopenia Current Visit: Yes Status: Chronic Assessment and Plan: Chronic. WBC 1.7 and platelets 35 today. (5) Type 2 diabetes mellitus Current Visit: Yes Status: Chronic Assessment and Plan: Blood sugars elevated. We will increase insulin regimen. Add long-acting insulin. DVT Prophylaxis: With SCDs alone. - Time Spent with Patient Total time spent is greater than 50% in coordination of care (as documented) at patient's floor/unit and/or counseling patient: Internal Medicine: Result - Labs CBC & Chem 7: 07/23/18 05:29 07/23/18 05:29 Labs: Short CBC 07/23/18 Range/Units 05:29 WBC 1.7 L (4.3-11.1) K/mcL Hgb 10.9 L (11.5-15.4) g/dL Hct 31.7 L (35.3-44.9) % Plt Count 35 L (140-400) K/mcL Neutrophils # 1.1 L (1.6-8.9) K/mcL BMP 07/23/18 05:29 Sodium 138 Potassium 3.7 Chloride 106 Carbon Dioxide 26 BUN 13 Creatinine 0.57 L Glucose 362 H Calcium 8.9 Cardiac Enzymes 07/22/18 07/23/18 Range/Units 23:11 05:29 Troponin I < 0.03 < 0.03 (< 0.04) ng/mL Liver Function 07/23/18 Range/Units 05:29 Total Bilirubin 1.7 H (0.3-1.0) mg/dL AST 32 (13-39) Units/L ALT 23 (7-52) Units/L Alkaline Phosphatase 147 H (34-104) Units/L Albumin 3.0 L (3.5-5.7) g/dL - ABG Interpretation ABG results: PT/INR, D-dimer PT 13.5 Seconds (9.4-12.1) H 07/22/18 17:13 Consult Discharge Plan - Plan Referrals: Anita Marc MD [Primary Care Provider] - (1) Chest pain Qualifiers: Chest pain type: unspecified Qualified Code(s): R07.9 - Chest pain, unspecified (2) Cirrhosis of liver with ascites Qualifiers: Hepatic cirrhosis type: unspecified hepatic cirrhosis Qualified Code(s): K74.60 - Unspecified cirrhosis of liver; R18.8 - Other ascites (5) Type 2 diabetes mellitus Qualifiers: Diabetes mellitus [facility] insulin use: with [facility] use Diabetes mellitus complication status: with circulatory complication Diabetes mellitus complication detail: with other circulatory complications Qualified Code(s): E11.59 - Type 2 diabetes mellitus with other circulatory complications; 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
--- NOTE | 2018-07-23 12:17 | Cardiology Consult Note ---
Date of Encounter: 07/23/18 Time of Encounter: 11:00 Assessment and Plan (1) Chest pain Current Visit: Yes Status: Acute Describes atypical chest pain symptoms, troponin negative, no ischemic ECG changes present. Pain free upon exam. Hx of CAD s/p PCI in 2012; last LHC in 2015 with mild non-obstructive CAD and small vessel disease (PDA) not amendable to revascularization. Stress test January 2017 negative for ischemia or infarct. Cannot tolerate increase in imdur d/t headache, unable to take Ranexa due to cirrhosis. Continue BB. Reports Hematology stopped asa due to thrombocytopenia. Echo pending. Unfortunately, she is not currently a candidate for LHC given severe thrombocytopenia (PLT 35 today). Do not suspect symptoms are primarily cardiac. If no significant abnormalities noted on TTE, would recommend continuation of conservative medical therapy. Will continue to follow. Qualifiers: Chest pain type: precordial pain Qualified Code(s): R07.2 - Precordial pain (2) SIMON (nonalcoholic steatohepatitis) Current Visit: Yes Status: Chronic Longstanding history of SIMON cirrhosis; follows with GI (Dr. Brambila) and also GI at [facility]. Reports is not currently a candidate for liver transplant d/t low MELD score. Ammonia elevated--appears to be worse than baseline; significant abdominal distention upon exam--would recommend GI consult as inpatient. Would also recommend inpatient Hematology consult for bicytopenia. (3) Pancytopenia Current Visit: Yes Status: Chronic Would recommend Hematology to evaluate patient--known to Dr. Young. HgB/PLT/WBC declining. Discussion w patient/family: The assessment and plan as outlined above was discussed with the patient and/or family members who expressed understanding and agreement. All questions were answered. Thank you for involving us in the care of your patient. Please call with any questions. The patient will be discussed and reviewed with Dr. Workman; changes to be made accordingly. History of Present Illness Consult date: 07/23/18 Requesting physician: Kartik Avalos Consult reason: CHest pain Chief complaint: Shortness of breath History of present illness: Ms. Morgan is a 63 year old female with PMHx significant of cirrhosis, SIMON, ascites s/p multiple paracentesis s/p TIPS procedure, pancytopenia including thrombocytopenia (plt 30s-40s), esophageal varices sp banding 06/2017 with recurrence, hypertension who presented to the ED with multiple complaints including worsening shortness of breath over the past several weeks, chest discomfort with radiation to left arm/neck, and increase in lower extremity edema and abdominal girth. Of note, multiple prolonged hospitalizations secondary to liver cirrhosis. Reports chest discomfort typically occurs at night and improves after several minutes without intervention. Does not worsen with exertion, however activity is quite limited due to severe dyspnea. Cardiology consulted for chest pain. Troponin negative x2. ECG without ischemic changes. Prior CV testing: LHC 03/2016: mild, non-obstructive CAD with severe small vessel disease with medical management recommended. Nuclear stress 01/2017: negative for ischemia or infarct. TTE 12/16/17 EF 65%, mild LVDD, no significant valvular dysfunction. Past Med Surg Social Fam HX - Past Medical History Medical history: cirrhosis, coronary artery disease, diabetes, fibromyalgia, GERD, hyperlipidemia, hypertension, liver disease, myocardial infarction, thyroid disease Additional medical history: estuardo spleen, sleep apnea, varices, stent x1 Psychiatric history: anxiety, depression, previous psychiatric hospitalization - Past Surgical History Surgical History: hysterectomy, other Additional surgical history: paracentesis. 04/21/18 PARACENTESIS @[facility]. TIPS 04/24/2018 - Social History Smoking Status: Never smoker Smokeless Tobacco Status: No Alcohol use: none Drug use: none - Family History Mother Living Status: Hx Family Cardiac Disorders: Yes (CAD) Hx Family Respiratory Disorders: Yes Hx Family Cancer: Yes Father Living Status: Hx Family Cardiac Disorders: Yes Hx Family Endocrine Disorder: Yes Medications and Allergies Albuterol Sulfate [Ventolin Hfa] 2 puff IH Q4H PRN 06/05/18 [History] Bumetanide [Bumex] 1 mg PO DAILY 06/05/18 [History] Fluticasone Propionate Nasal [Flonase] 1 spr NS DAILY PRN 06/05/18 [History] Fluticasone/Vilanterol [Breo Ellipta 100-25 Mcg INH] 1 puff IH DAILY 06/05/18 [ History] Gabapentin [Neurontin] 300 mg PO HS 06/05/18 [History] Insulin NPH Human Isophane [Novolin N] 50 unit SQ BID 06/05/18 [History] Insulin Regular, Human [Novolin R] 10 - 55 unit SQ TIDWM 06/05/18 [History] Ipratropium/Albuterol Neb [Duoneb] 3 ml IH Q6HR PRN 06/05/18 [History] Isosorbide MONOnitrate (24 HR) [Imdur] 30 mg PO DAILY 06/05/18 [History] LORazepam [Ativan] 0.5 mg PO Q8H PRN 06/05/18 [History] Loratadine [Claritin] 10 mg PO DAILY 06/05/18 [History] Meclizine HCl [Verticalm] 25 mg PO DAILY PRN 06/05/18 [History] Multivitamin [One Daily Multivitamin] 1 tab PO DAILY 06/05/18 [History] Rosuvastatin [Crestor] 20 mg PO HS 06/05/18 [History] Spironolactone [Aldactone] 50 mg PO DAILY 06/05/18 [History] metFORMIN [Glucophage] 500 mg PO BIDWM 06/05/18 [History] Metoprolol Tartrate 100 mg PO BID 07/02/18 [History] Rifaximin [Xifaxan] 550 mg PO BID #20 tablet 07/07/18 [Rx] Lactulose 200 gm RC DAILY PRN #3000 mls 07/09/18 [Rx] Lactulose 60 gm PO TID 07/22/18 [History] 3 Allergy/AdvReac Type Severity Reaction Status Date / Time Hydroxychloroquine Allergy Hives Verified 06/03/18 18:09 [From Plaquenil] atorvastatin [From Lipitor] AdvReac Muscle Pain Verified 06/03/18 18:09 escitalopram [From Lexapro] AdvReac See Verified 06/03/18 18:09 Comments All Systems Review: The remainder of the systems were reviewed and are negative Physical Examination Vital Signs, Last 4 Hours Temp Pulse Resp BP Pulse Ox 07/23/18 11:36 97.4 F L 71 18 119/68 95 Results 07/23/18 05:29 07/23/18 05:29 Lab Results 07/22/18 07/23/18 07/23/18 23:11 05:29 05:29 WBC 1.7 L Hgb 10.9 L Hct 31.7 L Plt Count 35 L Sodium 138 Potassium 3.7 Chloride 106 Carbon Dioxide 26 BUN 13 Creatinine 0.57 L Glucose 362 H Calcium 8.9 Total Bilirubin 1.7 H AST 32 ALT 23 Alkaline Phosphatase 147 H Troponin I < 0.03 07/23/18 05:29 WBC Hgb Hct Plt Count Sodium Potassium Chloride Carbon Dioxide BUN Creatinine Glucose Calcium Total Bilirubin AST ALT Alkaline Phosphatase Troponin I < 0.03 Consult Discharge Plan - Plan Referrals: Anita Marc MD [Primary Care Provider] -
[2018-07-23] MEDS: Insulin NPH 100 UNIT/ML (x5UNIT) SQ SCH ×2 (15:20→21:09)
[2018-07-23] MEDS ORDERED: Acetaminophen 325 MG TABLET PO SCH (21:00)
[2018-07-24] MEDS: Insulin LISPRO 300 UNITS/3 ML VIAL SQ SCH ×4 (08:40→21:05)
[2018-07-24] MEDS: Multivit/Ca/Min/Fe/FA 1 TAB TABLET PO SCH (08:46)
[2018-07-24] MEDS: Bumetanide 1 MG TABLET PO SCH ×2 (08:46→17:14)
[2018-07-24] MEDS: Isosorbide MONOnitrate (24 HR) 30 MG TAB.ER.24H PO SCH (08:47)
[2018-07-24] MEDS: Lactulose Oral Soln 20 GM/30 ML UDC PO SCH ×3 (08:47→21:08)
[2018-07-24] MEDS: (Breo Ellipta 100-25 Mcg Inh) IH SCH (08:47)
[2018-07-24] MEDS: Metoprolol 100 MG TABLET PO SCH ×2 (08:47→21:02)
[2018-07-24] MEDS: Insulin NPH 100 UNIT/ML (x5UNIT) SQ SCH ×2 (09:01→21:04)
--- NOTE | 2018-07-24 10:50 | Internal Med Progress Note ---
Hospitalist Progress Note - Encounter Date of Encounter: 07/24/18 Time of Encounter: 08:20 - Subjective Interval History: Patient is lying in bed. Comfortable. She has had multiple bowel movements yesterday. Overall she feels much better. She denies any chest pain. No shortness of breath. She does continue to have some abdominal distention. Denies any confusion. - Exam Vitals: Temp Pulse Resp BP Pulse Ox 97.8 F 63 17 124/74 96 07/24/18 07:16 07/24/18 07:16 07/24/18 07:16 07/24/18 07:16 07/24/18 07:16 Exam: General: Patient is alert, no acute distress, oriented x 3 Respiratory: Good respiratory effort. Normal breath sounds. No wheezing or crackles. Cardiovascular: Regular rate and rhythm. s1 and s2 normal No clicks, rubs, gallops, or murmurs. pedal edema Abdomen: Abdomen is soft, distended nontender. Bowel sounds are present Musculoskeletal: Spontaneously moving all extremities Skin: warm, dry, intact. Neuro: Alert oriented x 3 normal cranial nerves, no focal deficits - Assessment and Plan (1) Chest pain Current Visit: Yes Status: Acute Assessment and Plan: improved. Cardiology following. Considering starting Ranexa for her. Also ordered 2-D echocardiogram. will await results. (2) Cirrhosis of liver with ascites Current Visit: Yes Status: Chronic Assessment and Plan: Continue supportive care. Ultrasound of the abdomen done today showed small amount of ascites. No indication for paracentesis at this time. (3) Hyperammonemia Current Visit: Yes Status: Acute Assessment and Plan: Improving. Continue lactulose. (4) Pancytopenia Current Visit: Yes Status: Chronic Assessment and Plan: Chronic. Stable. (5) Type 2 diabetes mellitus Current Visit: Yes Status: Chronic Assessment and Plan: Improved blood sugars. Will continue current insulin regimen. DVT Prophylaxis: With SCDs alone - Time Spent with Patient Total time spent is greater than 50% in coordination of care (as documented) at patient's floor/unit and/or counseling patient: Internal Medicine: Result - Labs CBC & Chem 7: 07/23/18 05:29 07/23/18 05:29 - ABG Interpretation ABG results: PT/INR, D-dimer PT 13.5 Seconds (9.4-12.1) H 07/22/18 17:13 - Impressions Impressions Abdomen Ultrasound 07/24/18 09:30 IMPRESSION: Small amount of right lower quadrant ascites. 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
--- NOTE | 2018-07-24 11:21 | Electrocardiograph Report ---
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
--- NOTE | 2018-07-24 12:39 | Cardiology Progress Note ---
Date of Encounter: 07/24/18 Time of Encounter: 12:00 Assessment and Plan (1) Chest pain Current Visit: Yes Status: Acute Describes atypical chest pain symptoms, troponin negative, no ischemic ECG changes present. Pain free upon exam. Hx of CAD s/p PCI in 2012; last LHC in 2015 with mild non-obstructive CAD and small vessel disease (PDA) not amendable to revascularization. Stress test January 2017 negative for ischemia or infarct. Cannot tolerate increase in imdur d/t headache, unable to take Ranexa due to cirrhosis per patient, however she will discuss again with Dr. Brambila in the outpatient setting. Continue BB. Reports Hematology stopped asa due to thrombocytopenia. Echo shows preserved LVEF with normal wall motion. No pericardial effusion. Unfortunately, she is not currently a candidate for LHC given severe thrombocytopenia (PLT 35 today). Do not suspect symptoms are primarily cardiac. Would recommend continuation of conservative medical therapy. No further recommendations as inpatient, Cardiology will sign-off, will coordinate outpatient follow-up. Qualifiers: Chest pain type: precordial pain Qualified Code(s): R07.2 - Precordial pain (2) SIMON (nonalcoholic steatohepatitis) Current Visit: Yes Status: Chronic Longstanding history of SIMON cirrhosis; follows with GI (Dr. Brambila) and also GI at [facility]. Reports is not currently a candidate for liver transplant d/t low MELD score. Ammonia elevated--appears to be worse than baseline; significant abdominal distention upon exam--would recommend GI consult as inpatient. Would also recommend inpatient Hematology consult for bicytopenia. (3) Pancytopenia Current Visit: Yes Status: Chronic Would recommend Hematology to evaluate patient--known to Dr. Young. HgB/PLT/WBC declining. Discussion w patient/family: The assessment and plan as outlined above was discussed with the patient and/or family members who expressed understanding and agreement. All questions were answered. Thank you for involving us in the care of your patient. Please call with any questions. The patient will be discussed and reviewed with Dr. Guzmán; changes to be made accordingly. Subjective Principal diagnosis: Chest pain Interval history: Seen and examined. No chest pain since admission. Continues to have abdominal distention. No other symptoms have been reported. Results of TTE discussed with patient. Objective Vital Signs, Last 4 Hours Temp Pulse Resp BP Pulse Ox 07/24/18 11:32 98.0 F 66 16 111/68 97 General: Conversant, No Apparent Distress HEENT: Atraumatic, Normocephaly, Mucus Membranes Moist Cardiac: Reg Rate and Rhythm, Normal S1 and S2 Lungs: Normal Breath Sounds Neuro: Alert and responsive Abdomen: Other (distendend, soft) Skin: No rashes noted on visualized skin Musculoskeletal: No Chest Wall Tenderness Extremities: Other (mild LE edema) Results 07/23/18 05:29 07/23/18 05:29 Active Medications Acetaminophen (Tylenol) 500 mg PO HS KRISTIE Stop: 01/22/19 21:01 Last Admin: 07/23/18 21:10 Dose: 500 mg Albuterol Sulfate (Albuterol Inhaler) 2 puff IH [id number] PRN PRN Reason: Shortness Of Breath Stop: 01/22/19 00:01 Albuterol/Ipratropium (Duoneb) 3 ml IH Q6HR PRN PRN Reason: Shortness Of Breath Stop: 01/21/19 22:29 Bumetanide (Bumex) 1 mg PO DAILY KRISTIE Stop: 01/22/19 09:01 Last Admin: 07/24/18 08:46 Dose: 1 mg Lactulose 200 gm/ Sodium (Chloride 700 ml) 0 gm RC DAILY PRN PRN Reason: SEE COMMENT Stop: 01/21/19 23:32 Dextrose/Water (Dextrose 50% (Syg)) 25 ml IVP AD PRN PRN Reason: Hypoglycemia Stop: 01/21/19 20:47 Diphenhydramine HCl (Benadryl) 25 mg PO HS KRISTIE Stop: 01/22/19 21:01 Last Admin: 07/23/18 21:11 Dose: 25 mg Fluticasone Propionate (Flonase) 50 mcg NS DAILY PRN; Protocol PRN Reason: Allergy Symptoms Stop: 01/21/19 22:29 Last Admin: 07/23/18 08:13 Dose: 50 mcg Glucagon (Glucagen) 1 mg IM ONCE PRN PRN Reason: Hypoglycemia Stop: 01/21/19 20:47 Glucose (Gluctose) 15 gm PO ONCE PRN PRN Reason: Hypoglycemia Stop: 01/21/19 20:47 Glucose (Gluctose) 30 gm PO ONCE PRN PRN Reason: Hypoglycemia Stop: 01/21/19 20:47 Dextrose (Dextrose 5%) 1,000 mls @ 100 mls/hr IVC .Q10H PRN PRN Reason: HYPOGLYCEMIA Stop: 01/21/19 20:47 Insulin Human Lispro (Humalog) [address] [facility] PRN Reason: Protocol Stop: 01/21/19 21:01 Last Admin: 07/23/18 21:12 Dose: 4 units Insulin Human Lispro (Humalog) 0 units SQ TIDAC KRISTIE PRN Reason: Protocol Stop: 01/22/19 07:31 Last Admin: 07/24/18 11:42 Dose: 8 units Insulin Human NPH (Humulin N) 50 unit SQ BID [facility] Stop: 01/22/19 12:31 Last Admin: 07/24/18 09:01 Dose: 50 unit Isosorbide Mononitrate (Imdur) 30 mg PO DAILY [facility] Stop: 01/22/19 09:01 Last Admin: 07/24/18 08:47 Dose: 30 mg Lactulose (Lactulose) 60 gm PO TID [facility] Stop: 01/22/19 15:01 Last Admin: 07/24/18 08:47 Dose: 60 gm Metoprolol Tartrate (Lopressor) 100 mg PO BID [facility] Stop: 01/22/19 09:01 Last Admin: 07/24/18 08:47 Dose: 100 mg Multivitamins/Calcium (Thera M Plus) 1 tab PO DAILY [facility] Stop: 01/22/19 09:01 Last Admin: 07/24/18 08:46 Dose: 1 tab Naloxone HCl (Narcan) 0.4 mg IVP Q2MIN PRN PRN Reason: SEE COMMENTS Stop: 01/21/19 19:47 Nitroglycerin (Nitroglycerin) 0.4 mg SL Q5MIN PRN PRN Reason: Chest Pain Stop: 01/21/19 17:46 Last Admin: 07/22/18 18:04 Dose: 0.4 mg Pharmacy Profile Note (Patient Taking Own Medication) 1 each IH DAILY [facility] Stop: 01/22/19 09:01 Last Admin: 07/24/18 08:47 Dose: Not Given Rifaximin (Xifaxan) 550 mg PO BID [facility] Stop: 01/22/19 09:01 Last Admin: 07/24/18 08:46 Dose: 550 mg Rosuvastatin Calcium (Crestor) [address] [facility] Stop: 01/22/19 21:01 Last Admin: 07/23/18 21:11 Dose: 20 mg Spironolactone (Aldactone) 50 mg PO DAILY KRISTIE Stop: 01/22/19 09:01 Last Admin: 07/24/18 08:46 Dose: 50 mg - Imaging and Cardiology Echo: report reviewed Other Results: 12 hour tele: avg HR=65 SR. No events noted. - EKG Interpretation EKG results cardiology: personally reviewed Consult Discharge Plan - Plan Referrals: Anita Marc MD [Primary Care Provider] -
[2018-07-25 05:18] LABS: Basophils % 1.5 %; Eosinophils # 0.1 K/mcL (0.0-0.6); Eosinophils % 4.1 %; Hematocrit 33.4 % (35.3-44.9); Hemoglobin 11.6 g/dL (11.5-15.4); Immature Granulocytes % 0.4 % (0-4); Immature Platelets 5.2 % (1.1-6.1); Lymphocytes # 0.7 K/mcL (0.6-4.6); Lymphocytes % 24.1 %; Mean Corpuscular HGB Conc 34.7 g/dL (31.6-35.5); Mean Corpuscular Hemoglobin 32.4 pg (28.0-33.3); Mean Corpuscular Volume 93.3 fL (83.0-100.0); Monocytes # 0.2 K/mcL (0.0-1.3); Monocytes % 8.9 %; Neutrophils # 1.7 K/mcL (1.6-8.9); Red Blood Count 3.58 M/mcL (3.82-4.97); Red Cell Distribution Width 14.6 % (11.5-14.5)
[2018-07-25 05:20] LABS: Platelet Count 43 K/mcL (140-400)
[2018-07-25 05:36] LABS: BUN/Creatinine Ratio 23 (6-26); Blood Urea Nitrogen 18 mg/dL (8-23); Calcium 8.9 mg/dL (8.6-10.3); Carbon Dioxide 27 mEq/L (23-29); Chloride 104 mEq/L (98-107); Glucose 335 mg/dL (70-105); Osmolality,Calculated 301 (280-300); Potassium 3.7 mEq/L (3.5-5.1); Sodium 138 mEq/L (136-145); eGFR For Non-African Americans > 60 (> 60)
[2018-07-25 07:21] VITALS: BP 107/66
[2018-07-25] MEDS: Lactulose Oral Soln 20 GM/30 ML UDC PO SCH (08:38)
[2018-07-25] MEDS: Metoprolol 100 MG TABLET PO SCH (08:38)
[2018-07-25] MEDS: Multivit/Ca/Min/Fe/FA 1 TAB TABLET PO SCH (08:38)
[2018-07-25] MEDS: Bumetanide 1 MG TABLET PO SCH (08:39)
[2018-07-25] MEDS: Isosorbide MONOnitrate (24 HR) 30 MG TAB.ER.24H PO SCH (08:39)
[2018-07-25] MEDS: Insulin NPH 100 UNIT/ML (x5UNIT) SQ SCH (08:39)
[2018-07-25] MEDS: Insulin LISPRO 300 UNITS/3 ML VIAL SQ SCH ×2 (08:39→12:01)
[2018-07-25] MEDS: (Breo Ellipta 100-25 Mcg Inh) IH SCH (08:48)
--- NOTE | 2018-07-25 09:52 | Discharge Summary ---
- NOTES TO OUTPATIENT PROVIDER Notes to Outpatient Provider: Patient with history of liver cirrhosis, hepatic encephalopathy, coronary artery disease who was hospitalized here with chest pain. Her troponins were negative. She was evaluated by cardiology. She has known history of coronary artery disease but given that she has chronic thrombocytopenia, she is not on any antiplatelet agents. Cardiology evaluated her and recommended 2-D echocardiogram which did not show any significant changes from her prior ones. As such no further workup was indicated. Patient does have lower extremity edema and mild pleural effusion. Her diuretic dosage has been increased. She is also been placed on fluid restriction. She did receive lactulose for her hyperammonemia with improvement in her levels. Her WBC and platelet counts have been stable here. Cardiology will decide about starting her on medications for angina as outpatient. Currently she is on Imdur. She can follow up for further management with her primary care provider , cardiology and GI for her chronic medical issues. Date of Encounter: 07/25/18 Time of Encounter: 08:30 - Discharge Diagnosis (1) Chest pain Priority: Primary Status: Acute Qualifiers: Chest pain type: other chest pain Qualified Code(s): R07.89 - Other chest pain; R07.8 - Other chest pain (2) Cirrhosis of liver with ascites Priority: Secondary Status: Chronic Qualifiers: Hepatic cirrhosis type: unspecified hepatic cirrhosis Qualified Code(s): K74.60 - Unspecified cirrhosis of liver; R18.8 - Other ascites (3) Hyperammonemia Priority: Secondary Status: Acute (4) Pancytopenia Priority: Secondary Status: Chronic (5) Type 2 diabetes mellitus Priority: Secondary Status: Chronic Qualifiers: 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 Mostly related to underlying cirrhosis. Hospital course: Ms. Morgan is a 63 year old female patient with history of liver cirrhosis, hepatic encephalopathy, coronary artery disease who was hospitalized here with chest pain. Her troponins were negative. She was evaluated by cardiology. She has known history of coronary artery disease but given that she has chronic thrombocytopenia, she is not on any antiplatelet agents. Cardiology evaluated her and recommended 2-D echocardiogram which did not show any significant changes from her prior ones. As such no further workup was indicated. Patient does have lower extremity edema and mild pleural effusion. Her diuretic dosage has been increased. She is also been placed on fluid restriction. She did receive lactulose for her hyperammonemia with improvement in her levels. Her WBC and platelet counts have been stable here. Cardiology will decide about starting her on medications for angina as outpatient. Currently she is on Imdur. She can follow up for further management with her primary care provider , cardiology and GI for her chronic medical issues. Cardiology plans on placing him on Ranexa after discussing with GI. Discharge discussed with: patient, family, nurse, case management, it security consultant - Time Spent with Patient Total time spent providing and/or coordinating discharge services: Greater than 30 minutes (32 min) - Discharge Medications Prescriptions: Bumetanide [Bumex] 1 mg PO BIDDIURETIC #60 tablet Home Medications: Albuterol Sulfate [Ventolin Hfa] 2 puff IH Q4H PRN 06/05/18 [History] Fluticasone Propionate Nasal [Flonase] 1 spr NS DAILY PRN 06/05/18 [History] Fluticasone/Vilanterol [Breo Ellipta 100-25 Mcg INH] 1 puff IH DAILY 06/05/18 [ History] Gabapentin [Neurontin] 300 mg PO HS 06/05/18 [History] Insulin NPH Human Isophane [Novolin N] 50 unit SQ BID 06/05/18 [History] Insulin Regular, Human [Novolin R] 10 - 55 unit SQ TIDWM 06/05/18 [History] Ipratropium/Albuterol Neb [Duoneb] 3 ml IH Q6HR PRN 06/05/18 [History] Isosorbide MONOnitrate (24 HR) [Imdur] 30 mg PO DAILY 06/05/18 [History] LORazepam [Ativan] 0.5 mg PO Q8H PRN 06/05/18 [History] Loratadine [Claritin] 10 mg PO DAILY 06/05/18 [History] Meclizine HCl [Verticalm] 25 mg PO DAILY PRN 06/05/18 [History] Multivitamin [One Daily Multivitamin] 1 tab PO DAILY 06/05/18 [History] Rosuvastatin [Crestor] 20 mg PO HS 06/05/18 [History] Spironolactone [Aldactone] 50 mg PO DAILY 06/05/18 [History] metFORMIN [Glucophage] 500 mg PO BIDWM 06/05/18 [History] Metoprolol Tartrate 100 mg PO BID 07/02/18 [History] Rifaximin [Xifaxan] 550 mg PO BID #20 tablet 07/07/18 [Rx] Lactulose 60 gm PO TID 07/22/18 [History] Bumetanide [Bumex] 1 mg PO BIDDIURETIC #60 tablet 07/25/18 [Rx] Allergies/Adverse Reactions: 3 Allergy/AdvReac Type Severity Reaction Status Date / Time Hydroxychloroquine Allergy Hives Verified 06/03/18 18:09 [From Plaquenil] atorvastatin [From Lipitor] AdvReac Muscle Pain Verified 06/03/18 18:09 escitalopram [From Lexapro] AdvReac See Verified 06/03/18 18:09 Comments Date of admission: 07/24/18 17:28 Primary care physician: Anita Marc MD Consults: 07/23/18 02:16 Consult to Cardiology [CONS] Routine Comment: Consulting Provider: Cardiology Tiffany Reason for Consult: anginal equivalent, chest pain Call Completed: No 07/24/18 10:45 Consult to Physical Science Technician [CONS] Routine Reason for SW Consult: Discharge planning. Recurrent hospitalizations. Discharging clinician: Stan Estrada Anticipated date of discharge: 07/25/18 - Constitutional Vitals: Temp Pulse Resp BP Pulse Ox 98.1 F 69 16 107/66 96 07/25/18 07:15 07/25/18 07:15 07/25/18 07:15 07/25/18 07:15 07/25/18 07:15 General appearance: Present: cooperative, A&O X 3, pleasant, obese, answers questions appropriately Exam: . - Respiratory Respiratory exam: Present: CTAB. Absent: accessory muscle use, rales, rhonchi, wheezes - Cardiovascular Cardiovascular exam: Present: RRR, +S1, +S2. Absent: diastolic murmur, gallop, rubs, systolic murmur - GI/Abdominal GI/Abdominal exam: Present: distended, normal bowel sounds, soft, no peritoneal signs. Absent: tenderness - Extremities Exam Extremities exam: Present: pedal edema, warm, radial pulses palpable and symmetrical. Absent: calf tenderness, cyanotic - Patient Status Disposition: Home, Self-Care Condition: Good Functional capacity at discharge: independent ambulation Overall status at discharge: patient is progressing back to baseline - Discharge Instructions Instructions: Chest Pain (DC) Follow Up With: Nishant Lucero MD [Partnered Physician] - (in 1-2 weeks. An appointment has been requested. The office will contact you at home to schedule appointment. ) Anita Marc MD [Primary Care Provider] - 08/01/18 8:30 am (in 1-2 weeks) Additional Instructions: Follow-up appointments: If there is not an appointment listed below, please call your physician and schedule a follow-up appointment. If you have congestive heart failure and your symptoms return, make an appointment with your physician. Medication List: Carry an up to date list of medications you are taking at all time. We have given you an updated medication list including any new medications that you have been prescribed. Please provide that list to your primary provider Symptoms: If your condition changes or you experience any of the following symptoms, notify your physician immediately: Unusual or worsening pain, fever, persistent nausea and vomiting, bleeding, increase in swelling (especially in your legs), sudden weight gain, extreme dizziness, chest pain, increased drainage or redness from a wound or incision. Go to the emergency department if you experience a problem with breathing. Weights: If you have a history of swelling or shortness of breath, weigh yourself daily and notify your physician if you have a weight gain of two or more pounds in one day or 5 or more pounds in a week. If you experience any of the warning signs for stroke: Sudden numbness or weakness of the face, arm or leg; especially on one side of the body, sudden confusion, trouble speaking or understanding, sudden trouble seeing in one or both eyes, sudden trouble walking, dizziness, loss of balance or coordination, sudden sever headache with no cause; Call 911 or go to the emergency room. Stroke is a medical emergency. Some risk factors for stroke: Age, cigarette smoking, diabetes, excessive alcohol consumption, family history , high blood pressure, overweight, physical inactivity, prior stroke, heart attack, diagnosis of carotid artery stenosis or other artery disease. If you smoke, STOP: Smoking or tobacco use significantly increases your risk of heart and lung disease. Your chance of disease greatly increases if you continue to smoke. For more information, call the [place] tobacco quit line for smoking cessation - QUIT-NOW ( ) - Diet and Activity Activity: as per physical therapy, increase activity as tolerated Diet: advance to your usual diet, low fat, low cholesterol, low salt diet, other (Fluid restriction to 1.5 L per day)
--- NOTE | 2018-07-25 10:07 | Physician Discharge Referral ---
Home Health/Hosp Referral Info Transfer to: Home Health Provider in Charge Post Discharge: PCP - Diagnosis (1) Chest pain Priority: Primary Status: Acute (2) Cirrhosis of liver with ascites Priority: Secondary Status: Chronic (3) Hyperammonemia Priority: Secondary Status: Acute (4) Pancytopenia Priority: Secondary Status: Chronic (5) Type 2 diabetes mellitus Priority: Secondary Status: Chronic (6) Pleural effusion Priority: Secondary Status: Chronic - Respiratory Orders Smoking Cessation: Smoking cessation has been advised. For more information, call the [place] Tobacco Quit Line at 1-135-FNZF-NOW. - Diet/Nutrition Diet/Nutrition Orders: Cardiac - Activity Activity Orders: Walker - Services Needed Following services are medically necessary services: Nursing, Home Health Aide - Transfer Medications Prescriptions: Bumetanide [Bumex] 1 mg PO BIDDIURETIC #60 tablet Home Medications: Albuterol Sulfate [Ventolin Hfa] 2 puff IH Q4H PRN 06/05/18 [History] Fluticasone Propionate Nasal [Flonase] 1 spr NS DAILY PRN 06/05/18 [History] Fluticasone/Vilanterol [Breo Ellipta 100-25 Mcg INH] 1 puff IH DAILY 06/05/18 [ History] Gabapentin [Neurontin] 300 mg PO HS 06/05/18 [History] Insulin NPH Human Isophane [Novolin N] 50 unit SQ BID 06/05/18 [History] Insulin Regular, Human [Novolin R] 10 - 55 unit SQ TIDWM 06/05/18 [History] Ipratropium/Albuterol Neb [Duoneb] 3 ml IH Q6HR PRN 06/05/18 [History] Isosorbide MONOnitrate (24 HR) [Imdur] 30 mg PO DAILY 06/05/18 [History] LORazepam [Ativan] 0.5 mg PO Q8H PRN 06/05/18 [History] Loratadine [Claritin] 10 mg PO DAILY 06/05/18 [History] Meclizine HCl [Verticalm] 25 mg PO DAILY PRN 06/05/18 [History] Multivitamin [One Daily Multivitamin] 1 tab PO DAILY 06/05/18 [History] Rosuvastatin [Crestor] 20 mg PO HS 06/05/18 [History] Spironolactone [Aldactone] 50 mg PO DAILY 06/05/18 [History] metFORMIN [Glucophage] 500 mg PO BIDWM 06/05/18 [History] Metoprolol Tartrate 100 mg PO BID 07/02/18 [History] Rifaximin [Xifaxan] 550 mg PO BID #20 tablet 07/07/18 [Rx] Lactulose 60 gm PO TID 07/22/18 [History] Bumetanide [Bumex] 1 mg PO BIDDIURETIC #60 tablet 07/25/18 [Rx] Allergies/Adverse Reactions: 3 Allergy/AdvReac Type Severity Reaction Status Date / Time Hydroxychloroquine Allergy Hives Verified 06/03/18 18:09 [From Plaquenil] atorvastatin [From Lipitor] AdvReac Muscle Pain Verified 06/03/18 18:09 escitalopram [From Lexapro] AdvReac See Verified 06/03/18 18:09 Comments Certification: Further, I certify that my clinical findings support that this patient is homebound (i.e. absences from home require considerable and taxing effort and are for medical reasons or christian services or infrequently or short duration when for other reasons) because: Homebound Reason: Patient requires assistance of a person or device to safely leave home Attestation: My signature below is to certify that this patient is under my care and that I, or nurse practitioner, or a physician's printing bindery assistant working with me, has a face-to -face encounter with this patient.
== END 2018-07-25 12:14 | disposition home or self-care (01) | DRG 303 ==
LOC: 3BNU 16:45 → EMEROOARM 16:45 → SUATTDRO 18:50 → 3BNU 20:12
PROVIDERS: ADMIT Internal Medicine; ATTEND Internal Medicine

== ENCOUNTER 2019-03-30 11:07 | Observation (INO) ==
--- NOTE | 2019-03-30 11:20 | Emergency Department Note ---
Disposition Clinical Impression: Hepatocellular carcinoma Chest pain Qualifiers: Chest pain type: unspecified Qualified Code(s): R07.9 - Chest pain, unspecified Disposition: Admitted As Inpatient Condition: Fair Time of Disposition: 13:05 Chest Pain HPI - General Stated Complaint: Chest Pain Time Seen by Provider: 03/30/19 11:09 Source: patient Mode of arrival: ambulatory Limitations: no limitations Vital Signs Reviewed: Yes Nursing Notes Reviewed: Yes - History of Present Illness HPI Narrative: 64 yo female with past medical history of CAD, hepatocellular carcinoma, diabetes mellitus presents to the emergency department with chest pains that started this morning. She states she woke up at approximately 8:30 and had chest pains that woke her from sleep. She has had chest pain like this before and has a previous stent. She took 2 nitroglycerin at home which moderately improved her chest pain but did not completely resolve it. She was seen at this facility on March 19 for fluid overload and was subsequently transferred to [facility] where she had a revision of her TIPS procedure done on March 28 and was discharged yesterday. She states she has been told she needs to have another cardiac catheterization but her platelets have been too low to perform the procedure in the past secondary to her liver disease. She states this episode of chest pain feels as though it is a pressure, radiating into her back and down her left arm. It is making her short of breath and she does feel nauseous. She has not thrown up and she did not get diaphoretic with this episode of chest pain. She denies history of blood clots and has not had any unilateral leg swelling or leg pain. She is not currently taking any blood thinners and cannot take aspirin due to her low platelet levels. - Related Data Home Medications Medication Instructions Recorded Confirmed Albuterol Sulfate [Ventolin Hfa] 2 puff IH Q6H PRN 06/05/18 03/20/19 Spironolactone [Aldactone] 50 mg PO DAILY 06/05/18 03/19/19 metFORMIN [Glucophage] 1,000 mg PO BIDWM 06/05/18 03/20/19 Lactulose 45 gm PO BID 07/22/18 03/20/19 Bumetanide [Bumex] 2 mg PO DAILY 02/20/19 03/20/19 Carvedilol [Coreg] 12.5 mg PO BID 02/20/19 03/20/19 Insulin Degludec [Tresiba 60 unit SQ QAM 02/20/19 03/20/19 Flextouch U-200] DiphenhydraMINE [Benadryl] 25 mg PO Q8HR PRN 03/19/19 03/20/19 Insulin NPH/REG 70/30 (HUMAN) 20 - 55 unit SQ TIDWM 03/19/19 03/20/19 [Humulin 70/30 Vial] Ipratropium/Albuterol Sulfate 3 ml IH Q6H PRN 03/19/19 03/20/19 [Combivent Respimat Inhal [place]] Isosorbide DInitrate [Isosorbide 10 mg PO BID 03/19/19 03/20/19 Dinitrate] Loratadine [Allergy Relief] 10 mg PO DAILY 03/19/19 03/20/19 Omeprazole [PriLOSEC] 20 mg PO BID 03/19/19 03/20/19 Rosuvastatin Calcium [Crestor] 10 mg PO DAILY 03/19/19 03/20/19 Tramadol HCl [Ultram] 50 mg PO Q6H PRN 03/19/19 03/20/19 Insulin Degludec [Tresiba] 40 unit SQ QPM 03/20/19 03/20/19 Zinc Acetate [Galzin] 50 mg PO DAILY 03/20/19 03/20/19 Allergies Allergy/AdvReac Type Severity Reaction Status Date / Time Hydroxychloroquine Allergy Hives Verified 03/19/19 11:40 [From Plaquenil] atorvastatin [From Lipitor] AdvReac Muscle Pain Verified 03/19/19 11:40 escitalopram [From Lexapro] AdvReac See Verified 03/19/19 11:40 Comments All systems ED: reviewed and negative except as stated. Review of Systems: As Per HPI Constitutional: Reports: weakness. Denies: fever Cardiovascular: Reports: chest pain, dyspnea on exertion. Denies: palpitations, orthopnea, edema Respiratory: Reports: dyspnea. Denies: cough, wheezes, hemoptysis Gastrointestinal: Reports: nausea. Denies: abdominal pain, vomiting, diarrhea Musculoskeletal: Reports: back pain. Denies: neck pain Integumentary: Denies: rash Neurological: Denies: headache Endocrine: Reports: fatigue Chest Pain PMH - Past Medical History Medical history: Reports: cirrhosis, coronary artery disease, diabetes, fibromyalgia, GERD, hyperlipidemia, hypertension, liver disease, myocardial infarction, thyroid disease Surgical history: Reports: angioplasty/stent, PEBBLES/BSO, other Psychiatric history: Reports: anxiety, depression, previous psychiatric hospitalization - Social History Smoking Status: Never smoker Alcohol use: Reports: none Drug use: Reports: none Physical Exam - General Limitations: no limitations General appearance: alert, in no apparent distress - Head Head exam: atraumatic, normocephalic - Eye Eye exam: Present: normal appearance, EOMI - ENT ENT exam: normal exam, normal oropharynx, other (bandage on right side of neck dated 03/28 from recent revision of tips, area does not appear erythematous and there is no drainage noted) - Chest Chest inspection: Present: normal inspection. Absent: tenderness, rash - Respiratory Respiratory exam: Present: normal lung sounds bilaterally. Absent: respiratory distress, wheezes - Cardiovascular Cardiovascular exam: Present: regular rate, normal rhythm - Abdominal Exam Abdominal exam: Present: soft, Non-Tender, distention, ascites. Absent: guarding, rebound, rigidity, Mittal's sign, tenderness at McBurney's Point - Extremities Exam Extremities exam: Present: normal inspection, other (Berny's sign negative). Absent: tenderness, pedal edema, calf tenderness - Neurological Exam Neurological exam: Present: alert, oriented X3 - Psychiatric Psychiatric exam: Present: depressed, flat affect - Skin Skin exam: Present: warm, dry, intact Course Vital Signs Temperature 98 F 03/30/19 11:13 Pulse Rate 72 03/30/19 11:13 Respiratory Rate 14 03/30/19 11:13 Blood Pressure 155/74 03/30/19 11:13 O2 Sat by Pulse Oximetry 99 03/30/19 11:13 Temperature 98 F 03/30/19 11:13 Pulse Rate 70 03/30/19 12:47 Respiratory Rate 18 03/30/19 12:47 Blood Pressure 129/63 03/30/19 12:47 O2 Sat by Pulse Oximetry 98 03/30/19 12:47 Oxygen Delivery Oxygen Delivery Room Air Chest Pain - [facility] Narrative Medical decision making narrative: Patient with previous heart catheterization requiring stent presents with chest pain that woke her from sleep today. We will pursue a cardiac workup EKG, chest x-ray and basic lab work. Patient will be given nitroglycerin and Zofran but we will hold on the aspirin due to her history of thrombocytopenia. This patient has history of coronary artery disease and states she has been told she needs to be cathed previously and suspicion for pulmonary embolism is low secondary to her normal heart rate and respiratory rate as well as pulse ox we will not pursue a pulmonary embolism workup at this point. 1245 - patient's chest x-ray is unchanged from previous and shows a small pleural effusion. Troponin is negative. Platelets are 53 which is increased from her last visit. All other lab work is at the patient's baseline. No acute EKG changes demonstrating ischemia. Patient is still having chest pain after nitroglycerin and does still feel nauseous. We will administer additional Zofran. 1300 - she has been accepted to the hospital for chest pain rule out at this time. - Medical Records Medical records reviewed: Yes I reviewed the patient's medical records. - Lab Data Lab results reviewed: Yes I reviewed the patient's lab results. Result diagrams: 03/30/19 11:25 03/30/19 11:25 Lab Results 03/30/19 03/30/19 03/30/19 Range/Units 11:25 11:25 11:25 WBC 2.0 L (4.3-11.1) K/mcL RBC 3.85 (3.82-4.97) M/mcL Hgb 11.7 (11.5-15.4) g/dL Hct 35.2 L (35.3-44.9) % MCV 91.4 (83.0-100.0) fL MCH 30.4 (28.0-33.3) pg MCHC 33.2 (31.6-35.5) g/dL RDW 13.9 (11.5-14.5) % Plt Count 54 L (140-400) K/mcL MPV 10.9 (9.4-12.4) fL Immature Gran % 0.0 (0-4) % Seg Neutrophils % 72.3 % Lymphocytes % 16.3 % Monocytes % 7.9 % Eosinophils % 2.5 % Basophils % 1.0 % Neutrophils # 1.5 L (1.6-8.9) K/mcL Lymphocytes # 0.3 L (0.6-4.6) K/mcL Monocytes # 0.2 (0.0-1.3) K/mcL Eosinophils # 0.1 (0.0-0.6) K/mcL Basophils # 0.0 (0.0-0.2) K/mcL PT 14.2 H (9.4-12.1) Seconds INR 1.3 Sodium 138 (136-145) mEq/L Potassium 4.6 (3.5-5.1) mEq/L Chloride 102 (98-107) mEq/L Carbon Dioxide 29 (23-29) mEq/L BUN 21 (8-23) mg/dL Creatinine 0.74 (0.60-1.20) mg/dL Est GFR ( Amer) > 60 (> 60) Est GFR (Non-Af Amer) > 60 (> 60) BUN/Creatinine Ratio 28 H (6-26) Glucose 302 H (70-105) mg/dL Calculated Osmolality 300 (280-300) Calcium 9.6 (8.6-10.3) mg/dL Magnesium 1.8 (1.6-2.6) mg/dL Total Bilirubin 1.1 H (0.3-1.0) mg/dL AST 28 (13-39) Units/L ALT 16 (7-52) Units/L Alkaline Phosphatase 108 H (34-104) Units/L Troponin I < 0.03 (< 0.04) ng/mL Serum Total Protein 6.9 (6.4-8.9) g/dL Albumin 3.7 (3.5-5.7) g/dL Globulin 3.2 (2.4-3.5) g/dL Albumin/Globulin Ratio 1.2 (1.1-2.2) TSH (0.340-5.600) mcIU/mL 03/30/19 Range/Units 11:25 WBC (4.3-11.1) K/mcL RBC (3.82-4.97) M/mcL Hgb (11.5-15.4) g/dL Hct (35.3-44.9) % MCV (83.0-100.0) fL MCH (28.0-33.3) pg MCHC (31.6-35.5) g/dL RDW (11.5-14.5) % Plt Count (140-400) K/mcL MPV (9.4-12.4) fL Immature Gran % (0-4) % Seg Neutrophils % % Lymphocytes % % Monocytes % % Eosinophils % % Basophils % % Neutrophils # (1.6-8.9) K/mcL Lymphocytes # (0.6-4.6) K/mcL Monocytes # (0.0-1.3) K/mcL Eosinophils # (0.0-0.6) K/mcL Basophils # (0.0-0.2) K/mcL PT (9.4-12.1) Seconds INR Sodium (136-145) mEq/L Potassium (3.5-5.1) mEq/L Chloride (98-107) mEq/L Carbon Dioxide (23-29) mEq/L BUN (8-23) mg/dL Creatinine (0.60-1.20) mg/dL Est GFR ( Amer) (> 60) Est GFR (Non-Af Amer) (> 60) BUN/Creatinine Ratio (6-26) Glucose (70-105) mg/dL Calculated Osmolality (280-300) Calcium (8.6-10.3) mg/dL Magnesium (1.6-2.6) mg/dL Total Bilirubin (0.3-1.0) mg/dL AST (13-39) Units/L ALT (7-52) Units/L Alkaline Phosphatase (34-104) Units/L Troponin I (< 0.04) ng/mL Serum Total Protein (6.4-8.9) g/dL Albumin (3.5-5.7) g/dL Globulin (2.4-3.5) g/dL Albumin/Globulin Ratio (1.1-2.2) TSH 4.296 (0.340-5.600) mcIU/mL - Radiology Data Radiology results reviewed: Yes I reviewed the patient's radiology results. - EKG Data EKG attestation: Yes I reviewed and interpreted this EKG. EKG results narrative: EKG obtained at 11:16 on 03/30/2019 Heart rate 71 bpm, DE interval 160, QRS duration 96, QT 421, QTC 458 Sinus rhythm with one premature ventricular complex. No signs of ST segment elevations or depressions. No other T-wave abnormalities. No significant changes when compared to previous EKG dated 03/19/2019. Heart Score - Score History: Moderately Suspicious EKG: Non Specific repolarisation Disturbance Age: 45-65 Risk Factors: Equal/Greater than 3 risk factor or history of atherosclerotic disease Troponin: Less than normal limit HEART Score Total: 5 Critical Care Time Critical Care Time: No
[2019-03-30] MEDS ORDERED: Ondansetron 4 MG/2 ML VIAL IVP STA ×2 (11:29→12:28)
[2019-03-30 11:40] LABS: Eosinophils # 0.1 K/mcL (0.0-0.6); Eosinophils % 2.5 %; Hematocrit 35.2 % (35.3-44.9); Hemoglobin 11.7 g/dL (11.5-15.4); Lymphocytes # 0.3 K/mcL (0.6-4.6); Lymphocytes % 16.3 %; Mean Corpuscular HGB Conc 33.2 g/dL (31.6-35.5); Mean Corpuscular Hemoglobin 30.4 pg (28.0-33.3); Mean Corpuscular Volume 91.4 fL (83.0-100.0); Mean Platelet Volume 10.9 fL (9.4-12.4); Monocytes # 0.2 K/mcL (0.0-1.3); Monocytes % 7.9 %; Neutrophils # 1.5 K/mcL (1.6-8.9); Red Blood Count 3.85 M/mcL (3.82-4.97); Red Cell Distribution Width 13.9 % (11.5-14.5); Segmented Neutrophils % 72.3 %
[2019-03-30 11:42] LABS: Platelet Count 54 K/mcL (140-400)
[2019-03-30] MEDS: Nitroglycerin 0.4 MG TAB.SUBL SL PRN ×3 (11:42→23:22)
[2019-03-30 11:48] LABS: INR 1.3; Prothrombin Time 14.2 Seconds (9.4-12.1)
--- NOTE | 2019-03-30 11:49 | Emergency Department Note ---
Disposition Clinical Impression: Chest pain Qualifiers: Chest pain type: unspecified Qualified Code(s): R07.9 - Chest pain, unspecified Disposition: Admitted As Inpatient Condition: Fair Referrals: Anita Marc MD [Primary Care Provider] - Forms: ED Satisfaction Letter Time of Disposition: 13:05 General Adult HPI - General Chief complaint: ED Chest Pain Stated complaint: Chest Pain Time Seen by Provider: 03/30/19 11:09 Source: patient Mode of arrival: ambulatory Limitations: no limitations - History of Present Illness Pain Scale: 4 - Related Data Home Medications Medication Instructions Recorded Confirmed Albuterol Sulfate [Ventolin Hfa] 2 puff IH Q6H PRN 06/05/18 03/20/19 Spironolactone [Aldactone] 50 mg PO DAILY 06/05/18 03/19/19 metFORMIN [Glucophage] 1,000 mg PO BIDWM 06/05/18 03/20/19 Lactulose 45 gm PO BID 07/22/18 03/20/19 Bumetanide [Bumex] 2 mg PO DAILY 02/20/19 03/20/19 Carvedilol [Coreg] 12.5 mg PO BID 02/20/19 03/20/19 Insulin Degludec [Tresiba 60 unit SQ QAM 02/20/19 03/20/19 Flextouch U-200] DiphenhydraMINE [Benadryl] 25 mg PO Q8HR PRN 03/19/19 03/20/19 Insulin NPH/REG 70/30 (HUMAN) 20 - 55 unit SQ TIDWM 03/19/19 03/20/19 [Humulin 70/30 Vial] Ipratropium/Albuterol Sulfate 3 ml IH Q6H PRN 03/19/19 03/20/19 [Combivent Respimat Inhal [place]] Isosorbide DInitrate [Isosorbide 10 mg PO BID 03/19/19 03/20/19 Dinitrate] Loratadine [Allergy Relief] 10 mg PO DAILY 03/19/19 03/20/19 Omeprazole [PriLOSEC] 20 mg PO BID 03/19/19 03/20/19 Rosuvastatin Calcium [Crestor] 10 mg PO DAILY 03/19/19 03/20/19 Tramadol HCl [Ultram] 50 mg PO Q6H PRN 03/19/19 03/20/19 Insulin Degludec [Tresiba] 40 unit SQ QPM 03/20/19 03/20/19 Zinc Acetate [Galzin] 50 mg PO DAILY 03/20/19 03/20/19 Allergies Allergy/AdvReac Type Severity Reaction Status Date / Time Hydroxychloroquine Allergy Hives Verified 03/19/19 11:40 [From Plaquenil] atorvastatin [From Lipitor] AdvReac Muscle Pain Verified 03/19/19 11:40 escitalopram [From Lexapro] AdvReac See Verified 03/19/19 11:40 Comments Constitutional: Reports: weakness. Denies: fever Cardiovascular: Reports: chest pain, dyspnea on exertion. Denies: palpitations, orthopnea, edema Respiratory: Reports: dyspnea. Denies: cough, wheezes, hemoptysis Gastrointestinal: Reports: nausea. Denies: abdominal pain, vomiting, diarrhea Musculoskeletal: Reports: back pain. Denies: neck pain Integumentary: Denies: rash Neurological: Denies: headache Endocrine: Reports: fatigue Past Medical History - Past Medical History Medical history: Reports: cirrhosis, coronary artery disease, diabetes, fibromyalgia, GERD, hyperlipidemia, hypertension, liver disease, myocardial infarction, thyroid disease Surgical history: Reports: angioplasty/stent, PEBBLES/BSO, other Psychiatric history: Reports: anxiety, depression, previous psychiatric hospitalization - Social History Smoking Status: Never smoker Smokeless Tobacco Status: No Alcohol use: Reports: none Drug use: Reports: none Physical Exam - General Limitations: no limitations General appearance: alert, in no apparent distress Course Vital Signs Temperature 98 F 03/30/19 11:13 Pulse Rate 72 03/30/19 11:13 Respiratory Rate 14 03/30/19 11:13 Blood Pressure 155/74 03/30/19 11:13 O2 Sat by Pulse Oximetry 99 03/30/19 11:13 Temperature 98 F 03/30/19 11:13 Pulse Rate 70 03/30/19 12:47 Respiratory Rate 18 03/30/19 12:47 Blood Pressure 129/63 03/30/19 12:47 O2 Sat by Pulse Oximetry 98 03/30/19 12:47 Oxygen Delivery Oxygen Delivery Room Air Medical Decision Making - Lab Data Result diagrams: 03/30/19 11:25 03/30/19 11:25 Lab Results 0603/30/19 03/30/19 Range/Units 11:25 11:25 11:25 WBC 2.0 L (4.3-11.1) K/mcL RBC 3.85 (3.82-4.97) M/mcL Hgb 11.7 (11.5-15.4) g/dL Hct 35.2 L (35.3-44.9) % MCV 91.4 (83.0-100.0) fL MCH 30.4 (28.0-33.3) pg MCHC 33.2 (31.6-35.5) g/dL RDW 13.9 (11.5-14.5) % Plt Count 54 L (140-400) K/mcL MPV 10.9 (9.4-12.4) fL Immature Gran % 0.0 (0-4) % Seg Neutrophils % 72.3 % Lymphocytes % 16.3 % Monocytes % 7.9 % Eosinophils % 2.5 % Basophils % 1.0 % Neutrophils # 1.5 L (1.6-8.9) K/mcL Lymphocytes # 0.3 L (0.6-4.6) K/mcL Monocytes # 0.2 (0.0-1.3) K/mcL Eosinophils # 0.1 (0.0-0.6) K/mcL Basophils # 0.0 (0.0-0.2) K/mcL PT 14.2 H (9.4-12.1) Seconds INR 1.3 Sodium 138 (136-145) mEq/L Potassium 4.6 (3.5-5.1) mEq/L Chloride 102 (98-107) mEq/L Carbon Dioxide 29 (23-29) mEq/L BUN 21 (8-23) mg/dL Creatinine 0.74 (0.60-1.20) mg/dL Est GFR ( Amer) > 60 (> 60) Est GFR (Non-Af Amer) > 60 (> 60) BUN/Creatinine Ratio 28 H (6-26) Glucose 302 H (70-105) mg/dL Calculated Osmolality 300 (280-300) Calcium 9.6 (8.6-10.3) mg/dL Magnesium 1.8 (1.6-2.6) mg/dL Total Bilirubin 1.1 H (0.3-1.0) mg/dL AST 28 (13-39) Units/L ALT 16 (7-52) Units/L Alkaline Phosphatase 108 H (34-104) Units/L Troponin I < 0.03 (< 0.04) ng/mL Serum Total Protein 6.9 (6.4-8.9) g/dL Albumin 3.7 (3.5-5.7) g/dL Globulin 3.2 (2.4-3.5) g/dL Albumin/Globulin Ratio 1.2 (1.1-2.2) TSH (0.340-5.600) mcIU/mL 03/30/19 Range/Units 11:25 WBC (4.3-11.1) K/mcL RBC (3.82-4.97) M/mcL Hgb (11.5-15.4) g/dL Hct (35.3-44.9) % MCV (83.0-100.0) fL MCH (28.0-33.3) pg MCHC (31.6-35.5) g/dL RDW (11.5-14.5) % Plt Count (140-400) K/mcL MPV (9.4-12.4) fL Immature Gran % (0-4) % Seg Neutrophils % % Lymphocytes % % Monocytes % % Eosinophils % % Basophils % % Neutrophils # (1.6-8.9) K/mcL Lymphocytes # (0.6-4.6) K/mcL Monocytes # (0.0-1.3) K/mcL Eosinophils # (0.0-0.6) K/mcL Basophils # (0.0-0.2) K/mcL PT (9.4-12.1) Seconds INR Sodium (136-145) mEq/L Potassium (3.5-5.1) mEq/L Chloride (98-107) mEq/L Carbon Dioxide (23-29) mEq/L BUN (8-23) mg/dL Creatinine (0.60-1.20) mg/dL Est GFR ( Amer) (> 60) Est GFR (Non-Af Amer) (> 60) BUN/Creatinine Ratio (6-26) Glucose (70-105) mg/dL Calculated Osmolality (280-300) Calcium (8.6-10.3) mg/dL Magnesium (1.6-2.6) mg/dL Total Bilirubin (0.3-1.0) mg/dL AST (13-39) Units/L ALT (7-52) Units/L Alkaline Phosphatase (34-104) Units/L Troponin I (< 0.04) ng/mL Serum Total Protein (6.4-8.9) g/dL Albumin (3.5-5.7) g/dL Globulin (2.4-3.5) g/dL Albumin/Globulin Ratio (1.1-2.2) TSH 4.296 (0.340-5.600) mcIU/mL Attestation Statement - Attestation Attestation: I examined this patient and my medical decision-making was reviewed with the Resident Physician. I agree with the documented findings, disposition and treatment plan as described except to the extent set forth below. To the ED with chief clinic chest pressure. Patient describes it as feeling something is on her chest. Onset about 8 AM that woke her up from sleep. History of similar episodes in the past few weeks. Patient is currently undergoing treatment for liver cancer. She has had a platelet count that is too low to perform a heart catheterization. On examination she is in no distress. Still complaining of pressure. Heart regular lungs clear. Plan. Chronic workup. EKG was reviewed with the resident and is without ischemic changes. The patient's workup is unremarkable. She is admitted to medicine service to discuss further cardiac workup. Chest X-Ray 03/30/19 11:17 IMPRESSION: 1.Stable chest x-ray with small right pleural effusion with associated atelectasis and/or infiltrate. D/ / Mickey Guo MD / Mickey Guo MD Interpreting Provider: Mickey Guo MD
[2019-03-30 12:03] LABS: Alanine Aminotransferase 16 Units/L (7-52); Albumin 3.7 g/dL (3.5-5.7); Albumin/Globulin Ratio 1.2 (1.1-2.2); Alkaline Phosphatase 108 Units/L (34-104); Aspartate Amino Transferase 28 Units/L (13-39); BUN/Creatinine Ratio 28 (6-26); Bilirubin,Total 1.1 mg/dL (0.3-1.0); Blood Urea Nitrogen 21 mg/dL (8-23); Calcium 9.6 mg/dL (8.6-10.3); Carbon Dioxide 29 mEq/L (23-29); Chloride 102 mEq/L (98-107); Globulin 3.2 g/dL (2.4-3.5); Glucose 302 mg/dL (70-105); Magnesium 1.8 mg/dL (1.6-2.6); Osmolality,Calculated 300 (280-300); Potassium 4.6 mEq/L (3.5-5.1); Sodium 138 mEq/L (136-145); Total Protein 6.9 g/dL (6.4-8.9); Troponin I < 0.03 ng/mL (< 0.04); eGFR For African Americans > 60 (> 60); eGFR For Non-African Americans > 60 (> 60)
[2019-03-30] MEDS ORDERED: Naloxone 0.4 MG/ML INJ IVP PRN (13:06)
--- NOTE | 2019-03-30 13:55 | Electrocardiograph Report ---
[address] [address] Test Date: 2019-03-30 Pat Name: Odalis Morgan Department: [id number] Room: 3B24 Gender: F Multimedia Manager: : [id number] Requested By: Sophia Lopez Order Number: [id number] Reading MD: Kavin Workman Measurements Intervals [place] Rate: 71 P: 47 TX: 168 QRS: 2 QRSD: 96 T: 43 QT: 421 QTc: 458 Interpretive Statements Sinus rhythm Ventricular premature complex Electronically Signed On 03-30-2019 13:53:51 EDT by Kavin Workman
[2019-03-30] MEDS ORDERED: (Ipratropium/Albuterol Sulfate [Combivent Respimat In IH PRN (15:41)
[2019-03-30] MEDS ORDERED: Dextrose Gel 15 GM/37.5 ML TUBE PO PRN ×2 (15:44)
[2019-03-30] MEDS ORDERED: *HR* Dextrose 50 % in Water (Syg) 50 ML SYRINGE IVP PRN (15:44)
[2019-03-30] MEDS ORDERED: D5% in Water 1,000 ML IVC PRN (15:44)
--- NOTE | 2019-03-30 15:53 | Internal Med History&Physical ---
Date of Encounter: 03/30/19 Time of Encounter: 15:00 Internal Medicine - H&P: HPI Chief complaint: Chest pain Admitted From: Emergency Dept Plans for Post Hospital Care: Home History of present illness: Ms. Morgan is a 64 year old female with known PMH of SIMON, cirrhosis of liver, ascites s/p multiple paracentesis s/p TIPS procedure, pancytopenia including thrombocytopenia (plt 30s-40s), esophageal varices sp banding 06/2017 with recurrence, hypertension and CAD, who had another TIPS procedure last Tuesday now she presented to ER with intermittent CP . Pt stated her CP located sub sternally, left chest wall region, 5/10 in severity, intermittent, more like chest pressure and radiating to her neck. She has bee having this intermittent CP for a while, she does follow up with [facility] as an out pt. She was not able to go for [facility] due to her thrombocytopenia unable to start her on DAPT. They tried to adjust her medication with Imdur pt did not tolerate, pt is not able to afford Ranexa. Prior CV testing: LHC 03/2016: mild, non-obstructive CAD with severe small vessel disease with medical management recommended. Nuclear stress 01/2017: negative for ischemia or infarct. TTE 07/24/18 EF 60%, mild LVDD, no significant valvular dysfunction Past Med Surg Social Fam HX - Past Medical History Medical history: cirrhosis, coronary artery disease, diabetes, fibromyalgia, GERD, hyperlipidemia, hypertension, liver disease, myocardial infarction, thyroid disease Additional medical history: splenomegaly, sleep apnea, varices, stent x1 Psychiatric history: anxiety, depression, previous psychiatric hospitalization - Past Surgical History Surgical History: angioplasty/stent, PEBBLES/BSO, other Additional surgical history: stent x 1. TIP - Social History Smoking Status: Never smoker Smokeless Tobacco Status: No Alcohol use: none Drug use: none - Family History Mother Living Status: Hx Family Cardiac Disorders: Yes (CAD) Hx Family Respiratory Disorders: Yes Hx Family Cancer: Yes Father Living Status: Hx Family Cardiac Disorders: Yes Hx Family Endocrine Disorder: Yes Internal Medicine - H&P: Meds Albuterol Sulfate [Ventolin Hfa] 2 puff IH Q6H PRN 06/05/18 [History] Spironolactone [Aldactone] 50 mg PO DAILY 06/05/18 [History] metFORMIN [Glucophage] 1,000 mg PO BIDWM 06/05/18 [History] Lactulose 45 gm PO BID 07/22/18 [History] Bumetanide [Bumex] 2 mg PO DAILY 02/20/19 [History] Carvedilol [Coreg] 12.5 mg PO BID 02/20/19 [History] Insulin Degludec [Tresiba Flextouch U-200] 60 unit SQ QAM 02/20/19 [History] DiphenhydraMINE [Benadryl] 25 mg PO Q8HR PRN 03/19/19 [History] Insulin NPH/REG 70/30 (HUMAN) [Humulin 70/30 Vial] 20 - 55 unit SQ TIDWM 03/19/19 [History] Ipratropium/Albuterol Sulfate [Combivent Respimat Inhal Toone] 3 ml IH Q6H PRN 03/19/19 [History] Isosorbide DInitrate [Isosorbide Dinitrate] 10 mg PO BID 03/19/19 [History] Loratadine [Allergy Relief] 10 mg PO DAILY 03/19/19 [History] Omeprazole [PriLOSEC] 20 mg PO BID 03/19/19 [History] Rosuvastatin Calcium [Crestor] 10 mg PO DAILY 03/19/19 [History] Tramadol HCl [Ultram] 50 mg PO Q6H PRN 03/19/19 [History] Insulin Degludec [Tresiba] 40 unit SQ QPM 03/20/19 [History] Zinc Acetate [Galzin] 50 mg PO DAILY 03/20/19 [History] Allergy/AdvReac Type Severity Reaction Status Date / Time Hydroxychloroquine Allergy Hives Verified 03/19/19 11:40 [From Plaquenil] atorvastatin [From Lipitor] AdvReac Muscle Pain Verified 03/19/19 11:40 escitalopram [From Lexapro] AdvReac See Verified 03/19/19 11:40 Comments All Systems PM: A 10-system review of systems was performed and is negative for pertinent findings except as documented above in the HPI. Review of systems: All the systems are reviewed everything is benign except the systems and symptoms I mentioned in the history of present illness - Constitutional Vitals: Temp Pulse Resp BP Pulse Ox 98.2 F 71 16 138/63 94 03/30/19 13:06 03/30/19 13:06 03/30/19 13:27 03/30/19 13:27 03/30/19 13:06 General appearance: Present: cooperative, A&O X 3, no acute distress, answers questions appropriately Exam: a - Head Head exam: Present: atraumatic, normal inspection - Neck Neck exam general surgery: Present: supple - Respiratory Respiratory exam: Present: decreased breath sounds. Absent: rales, respiratory distress, rhonchi, wheezes - Cardiovascular Cardiovascular exam: Present: RRR, +S1, +S2. Absent: tachycardia - GI/Abdominal GI/Abdominal exam: Present: distended (mild), normal bowel sounds, soft. Absent: rebound, rigid, tenderness - Extremities Exam Extremities exam: Present: pedal edema. Absent: calf tenderness, joint swelling, tenderness - Back Exam Back exam: Absent: CVA tenderness (L), CVA tenderness (R) - Neurological Exam Neurological exam: Present: alert, oriented X3 - Psychiatric Psychiatric exam: Present: normal affect, normal mood Internal Med - H&P Results - Labs CBC & Chem 7: 03/30/19 11:25 03/30/19 11:25 Labs: Short CBC 03/30/19 Range/Units 11:25 WBC 2.0 L (4.3-11.1) K/mcL Hgb 11.7 (11.5-15.4) g/dL Hct 35.2 L (35.3-44.9) % Plt Count 54 L (140-400) K/mcL Neutrophils # 1.5 L (1.6-8.9) K/mcL BMP 03/30/19 11:25 Sodium 138 Potassium 4.6 Chloride 102 Carbon Dioxide 29 BUN 21 Creatinine 0.74 Glucose 302 H Calcium 9.6 Cardiac Enzymes 03/30/19 Range/Units 11:25 Troponin I < 0.03 (< 0.04) ng/mL Liver Function 03/30/19 Range/Units 11:25 Total Bilirubin 1.1 H (0.3-1.0) mg/dL AST 28 (13-39) Units/L ALT 16 (7-52) Units/L Alkaline Phosphatase 108 H (34-104) Units/L Albumin 3.7 (3.5-5.7) g/dL - Impressions ITS Impressions Chest X-Ray 03/30/19 11:17 IMPRESSION: 1.Stable chest x-ray with small right pleural effusion with associated atelectasis and/or infiltrate. D/ / Mickey Guo MD / Mickey Guo MD Interpreting Provider: Mickey Guo MD - Assessment and Plan (1) Chest pain Current Visit: Yes Status: Acute Assessment and plan: Will admit the pt into Tele for observation Will place pt on gambling monitor check serial troponin so far negative troponin EKG reviewed Cont nitro PRN for pain unable to start patient on aspirin/antiplatelet medication due to her severe thrombocytopenia Will check FLP in AM Consulted cardiology Keep her NPO after mid night will defer to cardiology for further testing Qualifiers: Chest pain type: unspecified Qualified Code(s): R07.9 - Chest pain, unspecified (2) CAD (coronary artery disease) Current Visit: No Status: Chronic Assessment and plan: Cont Coreg + Statin Qualifiers: Coronary Disease-Associated Artery/Lesion type: [place] artery [place] vs. transplanted heart: [place] heart Associated angina: with stable angina Qualified Code(s): I25.118 - Atherosclerotic heart disease of [place] coronary artery with other forms of angina pectoris (3) S/P TIPS (transjugular intrahepatic portosystemic shunt) Current Visit: No Status: Acute Assessment and plan: Resumed home diuretics (4) Cirrhosis Current Visit: No Status: Chronic Qualifiers: Hepatic cirrhosis type: unspecified hepatic cirrhosis Ascites presence: without ascites Qualified Code(s): K74.60 - Unspecified cirrhosis of liver (5) Diabetes mellitus Current Visit: No Status: Chronic Assessment and plan: will check HbA1C on ISS high grade Qualifiers: Diabetes mellitus type: type 2 Diabetes mellitus fpc insulin use: without intermodal dispatcher use Diabetes mellitus complication status: without complication Qualified Code(s): E11.9 - Type 2 diabetes mellitus without complications (6) Hyperlipidemia Current Visit: No Status: Chronic Assessment and plan: on crestor Qualifiers: Hyperlipidemia type: mixed hyperlipidemia Qualified Code(s): E78.2 - Mixed hyperlipidemia (7) Hypertension Current Visit: No Status: Chronic Assessment and plan: stable BP resumed all home meds Qualifiers: Hypertension type: essential hypertension Qualified Code(s): I10 - Essential (primary) hypertension (8) Leukopenia Current Visit: No Status: Chronic Assessment and plan: Due to cirrhosis of liver continue close monitoring Qualifiers: Leukopenia type: unspecified Qualified Code(s): D72.819 - Decreased white blood cell count, unspecified (9) Thrombocytopenia Current Visit: No Status: Chronic Assessment and plan: Chronic thrombocytopenia due to cirrhosis of liver stable platelets for now avoid antiplatelet medication - Time Spent With Patient Total time spent is greater than 50% in coordination of care (as documented) at patient's floor/unit and/or counseling patient:
[2019-03-30 16:59] LABS: Estimated Average Glucose 220 mg/dl
[2019-03-30] MEDS: Insulin LISPRO 300 UNITS/3 ML VIAL SQ SCH ×2 (17:12→20:53)
[2019-03-30] MEDS: Lactulose Oral Soln 20 GM/30 ML UDC PO SCH (20:53)
[2019-03-30] MEDS: Ondansetron 4 MG/2 ML VIAL IVP PRN (23:07)
[2019-03-31 02:21] LABS: Hemoglobin 10.7 g/dL (11.5-15.4); Immature Platelets 3.1 % (1.1-6.1); Mean Corpuscular HGB Conc 33.4 g/dL (31.6-35.5); Mean Corpuscular Hemoglobin 30.1 pg (28.0-33.3); Mean Corpuscular Volume 89.9 fL (83.0-100.0); Mean Platelet Volume 11.4 fL (9.4-12.4); Red Blood Count 3.56 M/mcL (3.82-4.97); Red Cell Distribution Width 13.9 % (11.5-14.5); White Blood Count 2.4 K/mcL (4.3-11.1)
[2019-03-31 02:42] LABS: Alanine Aminotransferase 15 Units/L (7-52); Albumin 3.4 g/dL (3.5-5.7); Albumin/Globulin Ratio 1.2 (1.1-2.2); Alkaline Phosphatase 98 Units/L (34-104); Aspartate Amino Transferase 25 Units/L (13-39); BUN/Creatinine Ratio 28 (6-26); Bilirubin,Total 1.2 mg/dL (0.3-1.0); Blood Urea Nitrogen 19 mg/dL (8-23); Calcium 9.4 mg/dL (8.6-10.3); Carbon Dioxide 27 mEq/L (23-29); Chloride 104 mEq/L (98-107); Chol/HDL Ratio 2.7 (0-4.9); Cholesterol 129 mg/dL (< 200); Globulin 2.8 g/dL (2.4-3.5); Glucose 291 mg/dL (70-105); HDL Cholesterol 47 mg/dL (40-59); LDL Cholesterol,Calculated 65 mg/dL (0-99); Magnesium 1.8 mg/dL (1.6-2.6); Osmolality,Calculated 303 (280-300); Potassium 4.1 mEq/L (3.5-5.1); Sodium 140 mEq/L (136-145); Total Protein 6.2 g/dL (6.4-8.9); Triglycerides 84 mg/dL (< 150); eGFR For African Americans > 60 (> 60); eGFR For Non-African Americans > 60 (> 60)
[2019-03-31] MEDS: Insulin LISPRO 300 UNITS/3 ML VIAL SQ SCH ×4 (08:16→21:06)
--- NOTE | 2019-03-31 08:31 | Internal Med Progress Note ---
Hospitalist Progress Note - Encounter Date of Encounter: 03/31/19 Time of Encounter: 08:31 - Subjective Interval History: Patient was seen and examined at bedside. Currently denies any chest pain or discomfort. Patient was evaluated by cardiology currently waiting cardiac echo and will increase Imdur. Discussed treatment plan with the patient verbalized understanding. - Exam Vitals: Temp Pulse Resp BP Pulse Ox 98.2 F 72 15 137/75 98 03/31/19 07:32 03/31/19 07:32 03/31/19 07:32 03/31/19 07:32 03/31/19 07:32 Exam: Skin: Free of rash and discoloration. Eyes: Sclera is white. There is no discharge from eyes. ENMT: Oral/pharyngeal mucosa is normal in appearance. There is no discharge from nose or ears. Respiratory: Normal breath sounds with no crackles and wheezes bilaterally. CV: Heart is regular with no gallop or murmur. GI: Abdomen is flat and soft with no palpable mass or visceromegaly. : There is no tenderness in patient's flanks bilaterally. Neuro exam: He has good strength in upper and lower extremities. He has normal eye movements. Psychiatric: He has normal affect. His thought process is appropriate to the si tuation. - Assessment and Plan (1) Thrombocytopenia Current Visit: No Status: Chronic Assessment and Plan: Chronic thrombocytopenia due to cirrhosis of liver stable platelets for now-we will continue to monitor closely avoid antiplatelet medication (2) CAD (coronary artery disease) Current Visit: No Status: Chronic Assessment and Plan: Cont Coreg + Statin (3) Hypertension Current Visit: No Status: Chronic Assessment and Plan: stable BP resumed all home meds (4) Hyperlipidemia Current Visit: No Status: Chronic Assessment and Plan: on crestor (5) Cirrhosis Current Visit: No Status: Chronic Assessment and Plan: Known PMH of [place] cirrhosis of the liver ascites with history of paracentesis st atus post TIPS procedure recently underwent revision of TIPS at [facility] last Tuesday. Also esophageal varices with banding and 2016 Currently hepatic panel is stable No ascites noted at this time Continue with diuretics as well as lactulose (6) Leukopenia Current Visit: No Status: Chronic Assessment and Plan: Due to cirrhosis of liver continue close monitoring (7) Chest pain Current Visit: Yes Status: Acute Assessment and Plan: Will admit the pt into Tele for observation Will place pt on child development professor check serial troponin so far negative troponin EKG reviewed Cont nitro PRN for pain unable to start patient on aspirin/antiplatelet medication due to her severe thrombocytopenia Will check FLP in AM Consulted cardiology Keep her NPO after mid night will defer to cardiology for further testing 03/31 Patient was seen by cardiology-recommending titration of medical therapy-she did report a history of headaches previously with increase in Imdur currently taking 30 mg Will attempt to increase to 60 mg Ischemic evaluation was discussed per cardiology however risk outweighed the benefits due to inability tolerate antiplatelet therapy secondary thrombocytopenia Cardiac echo We will evaluate other causes of chest discomfort (8) S/P TIPS (transjugular intrahepatic portosystemic shunt) Current Visit: No Status: Acute Assessment and Plan: Resumed home diuretics (9) Diabetes mellitus Current Visit: No Status: Chronic Assessment and Plan: will check [id number] which appears to be stable on ISS high grade Accu-Cheks before meals at bedtime - Time Spent with Patient Total time spent is greater than 50% in coordination of care (as documented) at patient's floor/unit and/or counseling patient: Internal Medicine: Result - Labs CBC & Chem 7: 03/31/19 01:09 03/31/19 01:09 Labs: Short CBC 03/30/19 03/31/19 Range/Units 11:25 01:09 WBC 2.0 L 2.4 L (4.3-11.1) K/mcL Hgb 11.7 10.7 L (11.5-15.4) g/dL Hct 35.2 L 32.0 L (35.3-44.9) % Plt Count 54 L 49 L (140-400) K/mcL Neutrophils # 1.5 L (1.6-8.9) K/mcL BMP 03/30/19 03/31/19 11:25 01:09 Sodium 138 140 Potassium 4.6 4.1 Chloride 102 104 Carbon Dioxide 29 27 BUN 21 19 Creatinine 0.74 0.69 Glucose 302 H 291 H Calcium 9.6 9.4 Cardiac Enzymes 03/30/19 03/30/19 03/31/19 Range/Units 11:25 19:39 01:09 Troponin I < 0.03 < 0.03 < 0.03 (< 0.04) ng/mL Liver Function 03/30/19 03/31/19 Range/Units 11:25 01:09 Total Bilirubin 1.1 H 1.2 H (0.3-1.0) mg/dL AST 28 25 (13-39) Units/L ALT 16 15 (7-52) Units/L Alkaline Phosphatase 108 H 98 (34-104) Units/L Albumin 3.7 3.4 L (3.5-5.7) g/dL - ABG Interpretation ABG results: PT/INR, D-dimer PT 14.2 Seconds (9.4-12.1) H 03/30/19 11:25 - Impressions Impressions Chest X-Ray 03/30/19 11:17 IMPRESSION: 1.Stable chest x-ray with small right pleural effusion with associated atelectasis and/or infiltrate. D/ / Mickey Guo MD / Mickey Guo MD Interpreting Provider: Mickey Guo MD Consult Discharge Plan - Plan Referrals: Anita Marc MD [Primary Care Provider] - (2) CAD (coronary artery disease) Qualifiers: Coronary Disease-Associated Artery/Lesion type: [place] artery [place] vs. transplanted heart: [place] heart Associated angina: with stable angina Quali fied Code(s): I25.118 - Atherosclerotic heart disease of [place] coronary artery with other forms of angina pectoris (3) Hypertension Qualifiers: Hypertension type: essential hypertension Qualified Code(s): I10 - Essential (primary) hypertension (4) Hyperlipidemia Qualifiers: Hyperlipidemia type: mixed hyperlipidemia Qualified Code(s): E78.2 - Mixed hyperlipidemia (5) Cirrhosis Qualifiers: Hepatic cirrhosis type: unspecified hepatic cirrhosis Ascites presence: without ascites Qualified Code(s): K74.60 - Unspecified cirrhosis of liver (6) Leukopenia Qualifiers: Leukopenia type: unspecified Qualified Code(s): D72.819 - Decreased white blood cell count, unspecified (7) Chest pain Qualifiers: Chest pain type: unspecified Qualified Code(s): R07.9 - Chest pain, unspecified (9) Diabetes mellitus Qualifiers: Diabetes mellitus type: type 2 Diabetes mellitus fdc insulin use: without fdc use Diabetes mellitus complication status: without complication Qualified Code(s): E11.9 - Type 2 diabetes mellitus without complications
--- NOTE | 2019-03-31 09:19 | Cardiology Consult Note ---
Date of Encounter: 03/31/19 Time of Encounter: 09:16 Assessment and Plan (1) Chest pain Current Visit: No Status: Acute Pleasant 64-year-old with unfortunate liver dysfunction and associated splenomegaly, ascites, and pancytopenia. Significant history of CAD, remote prior PCI. Previous TTE from July 2018 demonstrates normal LV function. Most recent stress test from 2016 was negative for ischemia. Presents with a brief episode of chest discomfort yesterday morning. Enzymes are negative, ECG no acute changes. Presentation does not suggest ACS. The patient, her , and I had a long discussion. Aspirin previously discontinued secondary to thrombocytopenia. At this time, titration of medical therapy seems most appropriate. She reports headaches with higher doses of Imdur years ago, currently taking 30 mg daily. She is willing to try 60 mg daily. No statin secondary to liver dysfunction. We discussed the possibility of an ischemic evaluation, but the risks outweigh the benefits given her inability to tolerate anti-platelet therapy. Encourage IM to also consider evaluation for other causes of chest discomfort given recent revision of TIPS procedure. Check TTE. If no significant changes, then no further cardiac testing at this time. Qualifiers: Chest pain type: precordial pain Qualified Code(s): R07.2 - Precordial pain Discussion w patient/family: The assessment and plan as outlined above was discussed with the patient and/or family members who expressed understanding and agreement. All questions were answered. Thank you for involving us in the care of your patient. Please call with any questions. History of Present Illness Consult date: 03/31/19 Requesting physician: Neha Vyas Consult reason: Chest pain Chief complaint: Chest pain History of present illness: Ms. Morgan is a 64 year old female with a history of CAD, remote prior PCI. Comorbidities include reported significant liver dysfunction with associated ascites, splenomegaly, and pancytopenia. Reports aspirin previously discontinued by hematology secondary to thrombocytopenia. Recently transferred to [facility] where revision of prior TIPS procedure performed. Return to the hospital yesterday with complaints of chest discomfort. Patient states it awoke her from sleep, lasted a few minutes. She took a nitroglycerin with minimal relief, then took a second nitroglycerin. Symptoms did improve. Patient states she was told in the past to come to the ER if chest pain required 2 nitroglycerin, so that is what she did. Today, reports she feels better. ECG reviewed, no acute changes. Serial enzymes negative. Previous cardiac testing reviewed: Limited TTE 07/24/2018: EF 60%. Normal LV size and function. No pericardial effusion. Lexiscan stress test 01/2017: Gated EF 80%. Imaging negative for ischemia or prior infarct. Past Med Surg Social Fam HX - Past Medical History Medical history: cirrhosis, coronary artery disease, diabetes, fibromyalgia, GERD, hyperlipidemia, hypertension, liver disease, myocardial infarction, thyroid disease Additional medical history: splenomegaly, sleep apnea, varices, stent x1 Psychiatric history: anxiety, depression, previous psychiatric hospitalization - Past Surgical History Surgical History: angioplasty/stent, PEBBLES/BSO, other Additional surgical history: stent x 1. TIP - Social History Smoking Status: Never smoker Smokeless Tobacco Status: No Alcohol use: none Drug use: none - Family History Mother Living Status: Hx Family Cardiac Disorders: Yes (CAD) Hx Family Respiratory Disorders: Yes Hx Family Cancer: Yes Father Living Status: Hx Family Cardiac Disorders: Yes Hx Family Endocrine Disorder: Yes Medications and Allergies Albuterol Sulfate [Ventolin Hfa] 2 puff IH Q6H PRN 06/05/18 [History] Spironolactone [Aldactone] 100 mg PO DAILY 06/05/18 [History] metFORMIN [Glucophage] 1,000 mg PO BIDWM 06/05/18 [History] Lactulose 23.3 gm PO BID 07/22/18 [History] Bumetanide [Bumex] 2 mg PO DAILY 02/20/19 [History] Insulin Degludec [Tresiba Flextouch U-200] 60 unit SQ QAM 02/20/19 [History] DiphenhydraMINE [Benadryl] 25 mg PO Q6H PRN 03/19/19 [History] Insulin NPH/REG 70/30 (HUMAN) [Humulin 70/30 Vial] 25 - 55 unit SQ TIDWM 03/19/19 [History] Isosorbide DInitrate [Isosorbide Dinitrate] 10 mg PO BID 03/19/19 [History] Loratadine [Allergy Relief] 10 mg PO DAILY 03/19/19 [History] Omeprazole [PriLOSEC] 20 mg PO BID 03/19/19 [History] Rosuvastatin Calcium [Crestor] 10 mg PO DAILY 03/19/19 [History] Tramadol HCl [Ultram] 50 mg PO Q6H PRN 03/19/19 [History] Zinc Acetate [Galzin] 50 mg PO QAM 03/20/19 [History] Carvedilol 6.25 mg PO Q12H 03/30/19 [History] Fluticasone Propionate Nasal [Flonase] 2 spray NS DAILY 03/30/19 [History] Insulin Degludec [Tresiba Flextouch U-200] 40 unit SQ QPM 03/30/19 [History] Ipratropium/Albuterol Sulfate [Iprat-Albut 0.5-3(2.5) mg/3 ml] 3 ml IH Q6H PRN 03/30/19 [History] Allergy/AdvReac Type Severity Reaction Status Date / Time Hydroxychloroquine Allergy Hives Verified 03/30/19 20:31 [From Plaquenil] atorvastatin [From Lipitor] AdvReac "JOINT, Verified 03/30/19 20:31 MUSCLE PAIN" escitalopram [From Lexapro] AdvReac "JOINT, Verified 03/30/19 20:31 MUSCLE PAIN" All Systems Review: The remainder of the systems were reviewed and are negative - Cardiovascular Cardiovascular: as per HPI Physical Examination Vital Signs, Last 4 Hours Temp Pulse Resp BP Pulse Ox 03/31/19 07:32 98.2 F 72 15 137/75 98 General: Conversant, No Apparent Distress HEENT: Atraumatic, Normocephaly, Mucus Membranes Moist Neck: No JVD, Normal carotid pulses Cardiac: Reg Rate and Rhythm, Normal S1 and S2, No Murmur Lungs: Normal Breath Sounds, No Wheeze, Rales, Rhonchi Neuro: Alert and responsive, No focal deficits noted Abdomen: Soft, Non-Tender, Other (Distention, obesity noted.) Skin: No rashes noted on visualized skin Musculoskeletal: No Chest Wall Tenderness Extremities: No Clubbing, No Cyanosis, No Edema Results 03/31/19 01:09 03/31/19 01:09 Lab Results 03/30/19 03/30/19 03/30/19 11:25 11:25 11:25 WBC 2.0 L Hgb 11.7 Hct 35.2 L Plt Count 54 L INR 1.3 Sodium 138 Potassium 4.6 Chloride 102 Carbon Dioxide 29 BUN 21 Creatinine 0.74 Glucose 302 H Calcium 9.6 Magnesium 1.8 Total Bilirubin 1.1 H AST 28 ALT 16 Alkaline Phosphatase 108 H Troponin I < 0.03 TSH 03/30/19 03/30/19 03/31/19 11:25 19:39 01:09 WBC Hgb Hct Plt Count INR Sodium Potassium Chloride Carbon Dioxide BUN Creatinine Glucose Calcium Magnesium Total Bilirubin AST ALT Alkaline Phosphatase Troponin I < 0.03 < 0.03 TSH 4.296 03/31/19 03/31/19 01:09 01:09 WBC 2.4 L Hgb 10.7 L Hct 32.0 L Plt Count 49 L INR Sodium 140 Potassium 4.1 Chloride 104 Carbon Dioxide 27 BUN 19 Creatinine 0.69 Glucose 291 H Calcium 9.4 Magnesium 1.8 Total Bilirubin 1.2 H AST 25 ALT 15 Alkaline Phosphatase 98 Troponin I TSH - Imaging and Cardiology Echo: report reviewed - EKG Interpretation EKG results cardiology: personally reviewed Consult Discharge Plan - Plan Referrals: Anita Marc MD [Primary Care Provider] -
[2019-03-31] MEDS: Bumetanide 1 MG TABLET PO SCH (10:04)
[2019-03-31] MEDS: Lactulose Oral Soln 20 GM/30 ML UDC PO SCH ×2 (10:05→20:36)
[2019-03-31] MEDS: Loratadine 10 MG TABLET PO SCH (10:05)
[2019-03-31] MEDS: Isosorbide MONOnitrate (24 HR) 60 MG TAB.ER.24H PO SCH (10:08)
[2019-03-31] MEDS: traMADol 50 MG TABLET PO PRN (22:25)
[2019-04-01 01:39] LABS: Basophils % 0.8 %; Hemoglobin 10.6 g/dL (11.5-15.4)
[2019-04-01 01:42] LABS: Eosinophils # 0.1 K/mcL (0.0-0.6); Hematocrit 32.1 % (35.3-44.9); Immature Granulocytes % 0.4 % (0-4); Immature Platelets 3.1 % (1.1-6.1); Lymphocytes # 0.4 K/mcL (0.6-4.6); Lymphocytes % 15.4 %; Mean Corpuscular Hemoglobin 29.9 pg (28.0-33.3); Mean Corpuscular Volume 90.7 fL (83.0-100.0); Mean Platelet Volume 11.1 fL (9.4-12.4); Monocytes # 0.3 K/mcL (0.0-1.3); Monocytes % 9.8 %; Neutrophils # 1.9 K/mcL (1.6-8.9); Red Blood Count 3.54 M/mcL (3.82-4.97); Red Cell Distribution Width 13.6 % (11.5-14.5); Segmented Neutrophils % 70.6 %; White Blood Count 2.7 K/mcL (4.3-11.1)
[2019-04-01 01:44] LABS: Platelet Count 47 K/mcL (140-400)
[2019-04-01 01:53] LABS: BUN/Creatinine Ratio 23 (6-26); Blood Urea Nitrogen 18 mg/dL (8-23); Calcium 9.1 mg/dL (8.6-10.3); Carbon Dioxide 27 mEq/L (23-29); Chloride 103 mEq/L (98-107); Glucose 361 mg/dL (70-105); Osmolality,Calculated 302 (280-300); Potassium 3.8 mEq/L (3.5-5.1); Sodium 138 mEq/L (136-145); eGFR For African Americans > 60 (> 60); eGFR For Non-African Americans > 60 (> 60)
[2019-04-01 07:15] VITALS: BP 145/73
[2019-04-01] MEDS: Lactulose Oral Soln 20 GM/30 ML UDC PO SCH (08:03)
[2019-04-01] MEDS: Ondansetron 4 MG/2 ML VIAL IVP PRN (08:05)
[2019-04-01] MEDS: Isosorbide MONOnitrate (24 HR) 60 MG TAB.ER.24H PO SCH (08:08)
[2019-04-01] MEDS: Insulin LISPRO 300 UNITS/3 ML VIAL SQ SCH ×2 (08:08→11:44)
[2019-04-01] MEDS: Loratadine 10 MG TABLET PO SCH (08:08)
[2019-04-01] MEDS: Bumetanide 1 MG TABLET PO SCH (08:08)
[2019-04-01] MEDS ORDERED: Insulin DETEMIR 100 UNIT/ML X5UNITS SQ SCH (11:00)
--- NOTE | 2019-04-01 11:07 | Cardiology Progress Note ---
Date of Encounter: 04/01/19 Time of Encounter: 11:04 Assessment and Plan (1) Chest pain Current Visit: No Status: Acute Pleasant 64-year-old with unfortunate liver dysfunction and associated splenomegaly, ascites, and pancytopenia. Significant history of CAD, remote prior PCI. Previous TTE from July 2018 demonstrates normal LV function. Most recent stress test from 2016 was negative for ischemia. Enzymes are negative, ECG no acute changes. Presentation does not suggest ACS. The patient, her , and I had a long discussion. Aspirin previously discontinued secondary to thrombocytopenia. Recommend continue Imdur 60 mg daily. Continue beta eriwn therapy. We will defer statin therapy to IM given underlying liver issues. TTE reviewed with patient, which demonstrates preserved LV function. No further cardiology recommendations at this time. Please call with any questions or concerns. Qualifiers: Chest pain type: precordial pain Qualified Code(s): R07.2 - Precordial pain Discussion w patient/family: The assessment and plan as outlined above was discussed with the patient and/or family members who expressed understanding and agreement. All questions were answered. Thank you for involving us in the care of your patient. Please call with any questions. Subjective Principal diagnosis: Chest pain Interval history: Overall, patient reports she is feeling well. No chest pain reported overnight. Reports headache with 60 mg Imdur, but willing to keep trying this dose. TTE reviewed, which demonstrates normal LV function. Objective Vital Signs, Last 4 Hours Temp Pulse Resp BP Pulse Ox 04/01/19 07:14 97.9 F 74 16 145/73 94 General: Conversant, No Apparent Distress HEENT: Atraumatic, Normocephaly, Mucus Membranes Moist Neck: No JVD, Normal carotid pulses Cardiac: Reg Rate and Rhythm, Normal S1 and S2, No Murmur Lungs: Normal Breath Sounds, No Wheeze, Rales, Rhonchi Neuro: Alert and responsive, No focal deficits noted Abdomen: Soft, Non-Tender, Other (Obese) Skin: No rashes noted on visualized skin Musculoskeletal: No Chest Wall Tenderness Extremities: No Clubbing, No Cyanosis, No Edema Results 04/01/19 01:02 04/01/19 01:02 Lab Results 04/01/19 04/01/19 01:02 01:02 WBC 2.7 L Hgb 10.6 L Hct 32.1 L Plt Count 47 L Sodium 138 Potassium 3.8 Chloride 103 Carbon Dioxide 27 BUN 18 Creatinine 0.80 Glucose 361 H Calcium 9.1 - Imaging and Cardiology Echo: report reviewed Cardiac cath: report reviewed Consult Discharge Plan - Plan Referrals: nAita Marc MD [Primary Care Provider] - (Appointment has been requested)
--- NOTE | 2019-04-01 12:49 | Discharge Summary ---
- NOTES TO OUTPATIENT PROVIDER Notes to Outpatient Provider: Resented with chest pain-evaluated by cardiology unable to perform LHC-due to thrombocytopenia. Medical management increasing Imdur 60 mg daily. Monitor hepatic panel closely-currently on 10 mg of Crestor Date of Encounter: 04/01/19 Time of Encounter: 12:49 - Discharge Diagnosis (1) Thrombocytopenia Priority: Secondary Status: Chronic (2) CAD (coronary artery disease) Priority: Secondary Status: Chronic Qualifiers: Coronary Disease-Associated Artery/Lesion type: [place] artery [place] vs. transplanted heart: [place] heart Associated angina: with stable angina Qualified Code(s): I25.118 - Atherosclerotic heart disease of [place] coronary artery with other forms of angina pectoris (3) Hypertension Priority: Secondary Status: Chronic Qualifiers: Hypertension type: essential hypertension Qualified Code(s): I10 - Essential (primary) hypertension (4) Hyperlipidemia Priority: Secondary Status: Chronic Qualifiers: Hyperlipidemia type: mixed hyperlipidemia Qualified Code(s): E78.2 - Mixed hyperlipidemia (5) Cirrhosis Priority: Secondary Status: Chronic Qualifiers: Hepatic cirrhosis type: unspecified hepatic cirrhosis Ascites presence: without ascites Qualified Code(s): K74.60 - Unspecified cirrhosis of liver (6) Leukopenia Priority: Secondary Status: Chronic Qualifiers: Leukopenia type: unspecified Qualified Code(s): D72.819 - Decreased white blood cell count, unspecified (7) Chest pain Priority: Primary Status: Acute Qualifiers: Chest pain type: unspecified Qualified Code(s): R07.9 - Chest pain, unspecified (8) S/P TIPS (transjugular intrahepatic portosystemic shunt) Priority: Secondary Status: Acute (9) Diabetes mellitus Priority: Secondary Status: Chronic Qualifiers: Diabetes mellitus type: type 2 Diabetes mellitus intermediate manager insulin use: without intermediate manager use Diabetes mellitus complication status: without complication Qualified Code(s): E11.9 - Type 2 diabetes mellitus without complications Hospital course: Ms. Morgan is a 64 year old female past medical history of SIMON cirrhosis of the liver, ascites history of multiple paracentesis status post TIPS procedure pancytopenia including thrombocytopenia and esophageal varices status post banding 06/2017 hypertension and CAD-who had TIPS procedure last Tuesday presented to the ER with intermittent chest pain. Describing chest pain as substernal left chest wall region intermittent describes a pressure radiating to her neck. She does see [facility] as an outpatient She is unable to undergo LHC due to thrombocytopenia and inability to started on DAPT therapy-she did have Imdur increased however she could not tolerate and she is unable to afford Ranexa. Lab work was completed troponins were negative hepatic panel unremarkable no white count no fevers. White count hemoglobin and platelets are at patient's baseline Cardiology was consulted and increased her Imdur. She did have a slight headache however states she is not having any more chest pain. She did have a slightly elevated blood glucose however she was receiving high sliding scale added basal insulin and glucose improved. Advised patient to continue with Imdur and to follow-up with primary care provider and cardiology since these providers know her best and can adjust medications accordingly. Currently patient is chest pain-free and is hemodynamically stable - Time Spent with Patient Total time spent providing and/or coordinating discharge services: - Discharge Medications Prescriptions: New Isosorbide MONOnitrate (24 HR) [Imdur] 60 mg PO DAILY #30 tab.er.24h Continued Albuterol Sulfate [Ventolin Hfa] 2 puff IH Q6H PRN PRN Reason: Shortness Of Breath metFORMIN [Glucophage] 1,000 mg PO BIDWM Spironolactone [Aldactone] 100 mg PO DAILY Lactulose 30 gm PO TID PRN PRN Reason: Constipation Bumetanide [Bumex] 2 mg PO DAILY Insulin Degludec [Tresiba Flextouch U-200] 60 unit SQ QAM DiphenhydraMINE [Benadryl] 25 mg PO Q6H PRN PRN Reason: Itching Insulin NPH/REG 70/30 (HUMAN) [Humulin 70/30 Vial] 25 - 55 unit SQ TIDWM Loratadine [Allergy Relief] 10 mg PO DAILY Omeprazole [PriLOSEC] 20 mg PO BID Rosuvastatin Calcium [Crestor] 10 mg PO DAILY Tramadol HCl [Ultram] 50 mg PO Q6H PRN PRN Reason: Pain Zinc Acetate [Galzin] 50 mg PO QAM Fluticasone Propionate Nasal [Flonase] 2 spray NS DAILY Insulin Degludec [Tresiba Flextouch U-200] 40 unit SQ QPM Carvedilol 6.25 mg PO Q12H Ipratropium/Albuterol Sulfate [Iprat-Albut 0.5-3(2.5) mg/3 ml] 3 ml IH Q6H PRN PRN Reason: Shortness Of Breath Discontinued Isosorbide MONOnitrate [Isosorbide Mononitrate ER] 30 mg PO BID Home Medications: Albuterol Sulfate [Ventolin Hfa] 2 puff IH Q6H PRN 06/05/18 [History] Spironolactone [Aldactone] 100 mg PO DAILY 06/05/18 [History] metFORMIN [Glucophage] 1,000 mg PO BIDWM 06/05/18 [History] Lactulose 30 gm PO TID PRN 07/22/18 [History] Bumetanide [Bumex] 2 mg PO DAILY 02/20/19 [History] Insulin Degludec [Tresiba Flextouch U-200] 60 unit SQ QAM 02/20/19 [History] DiphenhydraMINE [Benadryl] 25 mg PO Q6H PRN 03/19/19 [History] Insulin NPH/REG 70/30 (HUMAN) [Humulin 70/30 Vial] 25 - 55 unit SQ TIDWM 03/19/19 [History] Loratadine [Allergy Relief] 10 mg PO DAILY 03/19/19 [History] Omeprazole [PriLOSEC] 20 mg PO BID 03/19/19 [History] Rosuvastatin Calcium [Crestor] 10 mg PO DAILY 03/19/19 [History] Tramadol HCl [Ultram] 50 mg PO Q6H PRN 03/19/19 [History] Zinc Acetate [Galzin] 50 mg PO QAM 03/20/19 [History] Carvedilol 6.25 mg PO Q12H 03/30/19 [History] Fluticasone Propionate Nasal [Flonase] 2 spray NS DAILY 03/30/19 [History] Insulin Degludec [Tresiba Flextouch U-200] 40 unit SQ QPM 03/30/19 [History] Ipratropium/Albuterol Sulfate [Iprat-Albut 0.5-3(2.5) mg/3 ml] 3 ml IH Q6H PRN 03/30/19 [History] Isosorbide MONOnitrate (24 HR) [Imdur] 60 mg PO DAILY #30 tab.er.24h 04/01/19 [Rx] Allergies/Adverse Reactions: Allergy/AdvReac Type Severity Reaction Status Date / Time Hydroxychloroquine Allergy Hives Verified 03/30/19 20:31 [From Plaquenil] atorvastatin [From Lipitor] AdvReac "JOINT, Verified 03/30/19 20:31 MUSCLE PAIN" escitalopram [From Lexapro] AdvReac "JOINT, Verified 03/30/19 20:31 MUSCLE PAIN" Date of admission: 03/30/19 13:04 Primary care physician: Anita Marc MD Consults: 03/30/19 15:41 Consult to Cardiology [CONS] Routine Comment: Consulting Provider: [facility] [place] Reason for Consult: Acute chest pain Time Notified: 15:41 Call Completed: Yes Discharging clinician: Neha Vyas Anticipated date of discharge: 04/01/19 - Constitutional Vitals: Temp Pulse Resp BP Pulse Ox 97.9 F 74 16 145/73 94 04/01/19 07:14 04/01/19 07:14 04/01/19 07:14 04/01/19 07:14 04/01/19 07:14 General appearance: Present: cooperative, A&O X 3, no acute distress, answers questions appropriately Exam: Skin: Free of rash and discoloration. Eyes: Sclera is white. There is no discharge from eyes. ENMT: Oral/pharyngeal mucosa is normal in appearance. There is no discharge from nose or ears. Respiratory: Normal breath sounds with no crackles and wheezes bilaterally. CV: Heart is regular with no gallop or murmur. GI: Abdomen is flat and soft with no palpable mass or visceromegaly. : There is no tenderness in patient's flanks bilaterally. Neuro exam: He has good strength in upper and lower extremities. He has normal eye movements. Psychiatric: He has normal affect. His thought process is appropriate to the situation. - Patient Status Disposition: Home, Self-Care Condition: Fair Functional capacity at discharge: independent ambulation Overall status at discharge: patient is back to baseline - Discharge Instructions Follow Up With: Anita Marc MD [Primary Care Provider] - (Appointment has been requested) - Diet and Activity Activity: increase activity as tolerated Diet: advance to your usual diet
[2019-04-01] MEDS: traMADol 50 MG TABLET PO PRN (13:18)
== END 2019-04-01 18:01 | disposition home or self-care (01) ==
LOC: 3BNU 11:07 → EMEROOARM 11:07 → 3BNU 13:30
PROVIDERS: ADMIT Internal Medicine Nephrology; ATTEND Internal Medicine Nephrology

== ENCOUNTER 2019-10-08 14:16 | Inpatient (IN) ==
[2019-10-08 15:14] LABS: Red Cell Distribution Width 16.7 % (11.5-14.5)
[2019-10-08 15:15] LABS: Hematocrit 36.8 % (35.3-44.9); Hemoglobin 11.9 g/dL (11.5-15.4); Mean Corpuscular HGB Conc 32.3 g/dL (31.6-35.5); Mean Corpuscular Hemoglobin 29.6 pg (28.0-33.3); Mean Corpuscular Volume 91.5 fL (83.0-100.0); Mean Platelet Volume 11.5 fL (9.4-12.4); Monocytes # 0.2 K/mcL (0.0-1.3); Red Blood Count 4.02 M/mcL (3.82-4.97); White Blood Count 1.3 K/mcL (4.3-11.1)
[2019-10-08 15:40] LABS: BUN/Creatinine Ratio 29 (6-26); Blood Urea Nitrogen 21 mg/dL (8-23); Calcium 9.4 mg/dL (8.6-10.3); Carbon Dioxide 29 mEq/L (23-29); Chloride 100 mEq/L (98-107); Glucose 178 mg/dL (70-105); Osmolality,Calculated 297 (280-300); Potassium 3.9 mEq/L (3.5-5.1); Sodium 140 mEq/L (136-145); eGFR For African Americans > 60 (> 60); eGFR For Non-African Americans > 60 (> 60)
[2019-10-08] MEDS ORDERED: Ipratropium/Albuterol Neb 3 ML IH ONE (16:03)
[2019-10-08 16:24] LABS: Troponin I < 0.03 ng/mL (< 0.04)
[2019-10-08 17:10] LABS: Platelet Count 29 K/mcL (140-400)
[2019-10-08 17:25] LABS: Bilirubin,Urine Negative (Negative); Blood,Urine Trace (Negative); Clarity,Urine Cloudy (Clear); Color,Urine Dark Yellow (Yellow); Glucose,Urine (UA) Normal (Normal); Ketones,Urine Negative (Negative); Leukocyte Esterase,Urine Moderate (Negative); Nitrite,Urine Negative (Negative); Protein,Urine 100 mg/dL (Neg-Trace); Specific Gravity,Urine 1.026 (1.010-1.025); Urobilinogen,Urine Normal (Normal)
[2019-10-08 17:29] LABS: Bacteria,Urine None Seen per hpf (None-Few); Hyaline Casts,Urine Few per lpf (None-Few); RBC,Urine 0-3 per hpf (0-3); Squamous Epithelial Cell,Urine Many per lpf (None-Few); WBC,Urine 15-30 per hpf (0-3)
[2019-10-08] MEDS ORDERED: cefTRIAXone 1,000 MG in 0.9 % Sodium Chloride Mini Bag 100 ML IVPB ONE (17:49)
[2019-10-08 17:57] LABS: Lymphocytes # 0.2 K/mcL (0.6-4.6); Neutrophils # 0.9 K/mcL (1.6-8.9)
[2019-10-08 17:58] LABS: Large Platelets Present (Not Present); Platelet Estimate Decreased (Normal)
[2019-10-08] MEDS ORDERED: Prochlorperazine 10 MG/2 ML VIAL IVP ONE (19:06)
[2019-10-09] MEDS ORDERED: Naloxone 0.4 MG/ML INJ IVP PRN (01:42)
[2019-10-09] MEDS ORDERED: D5% in Water 1,000 ML IVC PRN (01:51)
[2019-10-09] MEDS ORDERED: *HR* Dextrose 50 % in Water (Syg) 50 ML SYRINGE IVP PRN (01:51)
[2019-10-09] MEDS ORDERED: Dextrose Gel 15 GM/37.5 ML TUBE PO PRN ×2 (01:51)
[2019-10-09] MEDS ORDERED: Albuterol 2.5 MG/3 ML NEBULIZER IH PRN (03:40)
[2019-10-09] MEDS ORDERED: Benzonatate 100 MG CAPSULE PO PRN (03:47)
[2019-10-09] MEDS: Ipratropium/Albuterol Neb 3 ML IH SCH ×5 (04:46→22:47)
[2019-10-09] MEDS: Azithromycin 500 MG in 0.9 % Sodium Chloride 250 ML IVPB SCH (04:48)
[2019-10-09 07:12] LABS: Hemoglobin 10.5 g/dL (11.5-15.4); Mean Corpuscular HGB Conc 32.8 g/dL (31.6-35.5); Mean Corpuscular Hemoglobin 29.8 pg (28.0-33.3); Mean Corpuscular Volume 90.9 fL (83.0-100.0); Mean Platelet Volume 11.5 fL (9.4-12.4); Red Blood Count 3.52 M/mcL (3.82-4.97); Red Cell Distribution Width 16.8 % (11.5-14.5); White Blood Count 1.1 K/mcL (4.3-11.1)
[2019-10-09 07:18] LABS: Platelet Count 27 K/mcL (140-400)
[2019-10-09] MEDS ORDERED: Insulin LISPRO 300 UNITS/3 ML VIAL SQ SCH ×2 (07:30→21:00)
[2019-10-09 07:34] LABS: BUN/Creatinine Ratio 27 (6-26); Blood Urea Nitrogen 17 mg/dL (8-23); Calcium 8.8 mg/dL (8.6-10.3); Carbon Dioxide 25 mEq/L (23-29); Chloride 103 mEq/L (98-107); Glucose 200 mg/dL (70-105); Osmolality,Calculated 297 (280-300); Potassium 3.8 mEq/L (3.5-5.1); Sodium 140 mEq/L (136-145); eGFR For African Americans > 60 (> 60); eGFR For Non-African Americans > 60 (> 60)
[2019-10-09] MEDS: predniSONE 20 MG TABLET PO SCH (08:07)
[2019-10-09] MEDS ORDERED: cefTRIAXone 1,000 MG in Water for inj. (sterile) 10 ML IVP SCH (09:00)
[2019-10-09] MEDS ORDERED: *HR* LORazepam 1 MG TABLET PO PRN (09:18)
[2019-10-09] MEDS ORDERED: Nitroglycerin 0.4 MG TAB.SUBL SL PRN (09:18)
[2019-10-09] MEDS ORDERED: Ipratropium/Albuterol Neb 3 ML IH PRN (10:00)
[2019-10-09] MEDS: Lactulose Oral Soln 20 GM/30 ML UDC PO PRN (17:28)
[2019-10-09] MEDS: carvediloL 6.25 MG TABLET PO SCH (21:33)
[2019-10-10] MEDS: Azithromycin 500 MG in 0.9 % Sodium Chloride 250 ML IVPB SCH (02:54)
[2019-10-10] MEDS: Ipratropium/Albuterol Neb 3 ML IH SCH ×4 (03:48→22:44)
[2019-10-10] MEDS: Loratadine 10 MG TABLET PO SCH (08:27)
[2019-10-10] MEDS: Isosorbide MONOnitrate (24 HR) 30 MG TAB.ER.24H PO SCH (08:28)
[2019-10-10] MEDS: predniSONE 20 MG TABLET PO SCH (08:29)
[2019-10-10] MEDS: Bumetanide 1 MG TABLET PO SCH (08:29)
[2019-10-10] MEDS: carvediloL 6.25 MG TABLET PO SCH ×2 (08:30→20:22)
[2019-10-10] MEDS ORDERED: SPIRONOLACTONE 200 MG PO SCH (09:00)
[2019-10-10] MEDS ORDERED: Isosorbide MONOnitrate (24 HR) 60 MG TAB.ER.24H PO SCH (09:00)
[2019-10-10] MEDS ORDERED: Amoxicillin 500 MG CAPSULE PO SCH (09:00)
[2019-10-10] MEDS ORDERED: 0.9 % Sodium Chloride 250 ML IVC SCH (13:15)
[2019-10-10] MEDS ORDERED: 0.9 % Sodium Chloride 250 ML ONE (17:10)
[2019-10-10 17:24] LABS: INR 1.3; Prothrombin Time 15.2 Seconds (9.4-12.1)
[2019-10-11] MEDS: Ipratropium/Albuterol Neb 3 ML IH SCH ×3 (03:48→16:14)
[2019-10-11 07:09] LABS: Red Cell Distribution Width 16.1 % (11.5-14.5)
[2019-10-11 07:11] LABS: Hematocrit 26.9 % (35.3-44.9); Hemoglobin 8.9 g/dL (11.5-15.4); Mean Corpuscular HGB Conc 33.1 g/dL (31.6-35.5); Mean Corpuscular Hemoglobin 29.4 pg (28.0-33.3); Mean Corpuscular Volume 88.8 fL (83.0-100.0); Mean Platelet Volume 11.3 fL (9.4-12.4); Red Blood Count 3.03 M/mcL (3.82-4.97); White Blood Count 1.3 K/mcL (4.3-11.1)
[2019-10-11 07:20] LABS: Platelet Count 33 K/mcL (140-400)
[2019-10-11 07:32] LABS: BUN/Creatinine Ratio 28 (6-26); Blood Urea Nitrogen 22 mg/dL (8-23); Calcium 8.7 mg/dL (8.6-10.3); Carbon Dioxide 29 mEq/L (23-29); Chloride 104 mEq/L (98-107); Glucose 139 mg/dL (70-105); Magnesium 1.6 mg/dL (1.6-2.6); Osmolality,Calculated 298 (280-300); Potassium 3.6 mEq/L (3.5-5.1); Sodium 141 mEq/L (136-145); eGFR For African Americans > 60 (> 60); eGFR For Non-African Americans > 60 (> 60)
[2019-10-11] MEDS: predniSONE 20 MG TABLET PO SCH (08:17)
[2019-10-11] MEDS: Loratadine 10 MG TABLET PO SCH (08:17)
[2019-10-11] MEDS: carvediloL 6.25 MG TABLET PO SCH ×2 (08:17→17:43)
[2019-10-11] MEDS: Bumetanide 1 MG TABLET PO SCH (08:17)
[2019-10-11] MEDS: Isosorbide MONOnitrate (24 HR) 30 MG TAB.ER.24H PO SCH (08:20)
[2019-10-11 13:13] LABS: LDH,Peritoneal Fluid 78 Units/L (No Ref Range); Total Protein,Peritoneal Fluid < 3.0 g/dL
[2019-10-11 14:08] LABS: RBC,Peritoneal Fluid 0.002 M/mcL
[2019-10-11 14:10] LABS: Appearance of Peritoneal Fl HAZY (Clear)
[2019-10-11 14:32] LABS: Basophils,Peritoneal Fluid 0 %; Eosinophils,Peritoneal Fluid 0 %
[2019-10-11] MEDS: Lactulose Oral Soln 20 GM/30 ML UDC PO PRN (15:50)
[2019-10-12 06:45] LABS: Red Cell Distribution Width 16.2 % (11.5-14.5)
[2019-10-12 06:46] LABS: Hemoglobin 11.6 g/dL (11.5-15.4); Mean Corpuscular HGB Conc 34.1 g/dL (31.6-35.5); Mean Corpuscular Hemoglobin 30.3 pg (28.0-33.3); Mean Corpuscular Volume 88.8 fL (83.0-100.0); Mean Platelet Volume 10.6 fL (9.4-12.4); Red Blood Count 3.83 M/mcL (3.82-4.97); White Blood Count 1.7 K/mcL (4.3-11.1)
[2019-10-12 06:47] LABS: Platelet Count 36 K/mcL (140-400)
[2019-10-12 06:59] LABS: BUN/Creatinine Ratio 24 (6-26); Blood Urea Nitrogen 19 mg/dL (8-23); Calcium 9.5 mg/dL (8.6-10.3); Carbon Dioxide 32 mEq/L (23-29); Chloride 99 mEq/L (98-107); Glucose 58 mg/dL (70-105); Magnesium 1.7 mg/dL (1.6-2.6); Osmolality,Calculated 290 (280-300); Potassium 3.3 mEq/L (3.5-5.1); Sodium 140 mEq/L (136-145); eGFR For African Americans > 60 (> 60); eGFR For Non-African Americans > 60 (> 60)
[2019-10-12] MEDS: Loratadine 10 MG TABLET PO SCH (08:48)
[2019-10-12] MEDS: carvediloL 6.25 MG TABLET PO SCH (08:48)
[2019-10-12] MEDS: predniSONE 20 MG TABLET PO SCH (08:48)
[2019-10-12] MEDS: Isosorbide MONOnitrate (24 HR) 30 MG TAB.ER.24H PO SCH (08:48)
[2019-10-12] MEDS ORDERED: Bumetanide 1 MG/4 ML VIAL IVP ONE ×3 (10:14→12:19)
[2019-10-12 14:22] VITALS: BP 128/62
== END 2019-10-12 15:10 | disposition home or self-care (01) | DRG 202 ==
LOC: 3ANU 14:16 → EMEROOARM 14:16 → 3ANU 22:37
PROVIDERS: ADMIT Internal Medicine; ATTEND Internal Medicine

== ENCOUNTER 2019-10-17 14:47 | Observation (INO) ==
[2019-10-17 15:42] LABS: Basophils % 0.8 %; Hemoglobin 11.9 g/dL (11.5-15.4); Mean Corpuscular Hemoglobin 29.9 pg (28.0-33.3); Red Blood Count 3.98 M/mcL (3.82-4.97)
[2019-10-17 15:43] LABS: Eosinophils % 1.3 %; Hematocrit 35.7 % (35.3-44.9); Immature Granulocytes % 0.8 % (0-4); Immature Platelets 6.8 % (1.1-6.1); Lymphocytes # 0.4 K/mcL (0.6-4.6); Lymphocytes % 14.6 %; Mean Corpuscular HGB Conc 33.3 g/dL (31.6-35.5); Mean Corpuscular Volume 89.7 fL (83.0-100.0); Mean Platelet Volume 12.6 fL (9.4-12.4); Monocytes # 0.2 K/mcL (0.0-1.3); Monocytes % 9.2 %; Neutrophils # 1.8 K/mcL (1.6-8.9); Red Cell Distribution Width 15.9 % (11.5-14.5); Segmented Neutrophils % 73.3 %; White Blood Count 2.4 K/mcL (4.3-11.1)
[2019-10-17 15:46] LABS: Platelet Count 33 K/mcL (140-400)
[2019-10-17 16:03] LABS: BUN/Creatinine Ratio 27 (6-26); Blood Urea Nitrogen 29 mg/dL (8-23); Calcium 9.1 mg/dL (8.6-10.3); Carbon Dioxide 27 mEq/L (23-29); Chloride 94 mEq/L (98-107); Glucose 611 mg/dL (70-105); Osmolality,Calculated 304 (280-300); Potassium 4.9 mEq/L (3.5-5.1); Sodium 130 mEq/L (136-145); Troponin I < 0.03 ng/mL (< 0.04); eGFR For African Americans > 60 (> 60); eGFR For Non-African Americans 51 (> 60)
[2019-10-17] MEDS ORDERED: 0.9 % Sodium Chloride 1,000 ML IVC ONE (16:44)
[2019-10-17 17:29] LABS: Bilirubin,Urine Negative (Negative); Blood,Urine Trace (Negative); Clarity,Urine Clear (Clear); Color,Urine Yellow (Yellow); Glucose,Urine (UA) >=1000 mg/dL (Normal); Ketones,Urine Negative (Negative); Leukocyte Esterase,Urine Negative (Negative); Nitrite,Urine Negative (Negative); Protein,Urine Negative (Neg-Trace); Specific Gravity,Urine > 1.030 (1.010-1.025); Urobilinogen,Urine Normal (Normal)
[2019-10-17 17:31] LABS: Bacteria,Urine None Seen per hpf (None-Few); Hyaline Casts,Urine None Seen per lpf (None-Few); RBC,Urine 0-3 per hpf (0-3); Squamous Epithelial Cell,Urine Many per lpf (None-Few); WBC,Urine 0-3 per hpf (0-3)
[2019-10-17 17:38] LABS: VBG HCO3 28 mEq/L (21-27); VBG PCO2 44 mmHg (41-51); VBG PH 7.42 pH Units (7.32-7.42); VBG PO2 44 mmHg (25-50)
[2019-10-17 17:40] LABS: Albumin 3.1 g/dL (3.5-5.7); Albumin/Globulin Ratio 1.1 (1.1-2.2); Bilirubin,Direct 0.4 mg/dL (0.0-0.2); Bilirubin,Indirect 1.2 mg/dL (0.0-1.0); Bilirubin,Total 1.6 mg/dL (0.3-1.0); Globulin 2.9 g/dL (2.4-3.5)
[2019-10-17] MEDS ORDERED: Naloxone 0.4 MG/ML INJ IVP PRN (18:25)
[2019-10-17] MEDS ORDERED: Ondansetron 4 MG/2 ML VIAL IVP PRN (18:25)
[2019-10-17] MEDS ORDERED: D5% in Water 1,000 ML IVC PRN ×2 (18:40→18:41)
[2019-10-17] MEDS ORDERED: *HR* Dextrose 50 % in Water (Syg) 50 ML SYRINGE IVP PRN ×2 (18:40→18:41)
[2019-10-17] MEDS ORDERED: Dextrose Gel 15 GM/37.5 ML TUBE PO PRN ×4 (18:40→18:41)
[2019-10-17] MEDS ORDERED: *HR* LORazepam 1 MG TABLET PO PRN (18:46)
[2019-10-17] MEDS ORDERED: Ipratropium/Albuterol Neb 3 ML IH PRN (18:46)
[2019-10-17] MEDS: Lactulose Oral Soln 20 GM/30 ML UDC PO SCH (20:59)
[2019-10-17] MEDS: 0.9 % Sodium Chloride 1,000 ML IVC SCH (20:59)
[2019-10-17] MEDS ORDERED: Insulin DETEMIR 100 UNIT/ML X5UNITS SQ SCH ×2 (21:00→21:30)
[2019-10-17] MEDS: Insulin LISPRO 300 UNITS/3 ML VIAL SQ SCH (22:14)
[2019-10-17] MEDS ORDERED: Morphine Sulfate 2 MG/ML SYRINGE IVP PRN (22:37)
[2019-10-18 02:25] LABS: Basophils % 0.9 %; Eosinophils # 0.1 K/mcL (0.0-0.6); Eosinophils % 2.6 %; Hematocrit 31.8 % (35.3-44.9); Hemoglobin 10.5 g/dL (11.5-15.4); Immature Platelets 5.7 % (1.1-6.1); Lymphocytes # 0.4 K/mcL (0.6-4.6); Lymphocytes % 19.2 %; Mean Corpuscular Hemoglobin 29.8 pg (28.0-33.3); Mean Corpuscular Volume 90.3 fL (83.0-100.0); Mean Platelet Volume 11.7 fL (9.4-12.4); Monocytes # 0.2 K/mcL (0.0-1.3); Monocytes % 10.5 %; Neutrophils # 1.5 K/mcL (1.6-8.9); Red Blood Count 3.52 M/mcL (3.82-4.97); Red Cell Distribution Width 15.9 % (11.5-14.5); Segmented Neutrophils % 66.8 %; White Blood Count 2.3 K/mcL (4.3-11.1)
[2019-10-18 02:33] LABS: Platelet Count 31 K/mcL (140-400)
[2019-10-18 02:41] LABS: BUN/Creatinine Ratio 33 (6-26); Blood Urea Nitrogen 28 mg/dL (8-23); Calcium 8.1 mg/dL (8.6-10.3); Carbon Dioxide 27 mEq/L (23-29); Chloride 104 mEq/L (98-107); Glucose 290 mg/dL (70-105); Osmolality,Calculated 298 (280-300); Sodium 136 mEq/L (136-145); eGFR For African Americans > 60 (> 60); eGFR For Non-African Americans > 60 (> 60)
[2019-10-18] MEDS: 0.9 % Sodium Chloride 1,000 ML IVC SCH (03:59)
[2019-10-18] MEDS: Insulin LISPRO 300 UNITS/3 ML VIAL SQ SCH ×4 (08:12→21:18)
[2019-10-18] MEDS: carvediloL 6.25 MG TABLET PO SCH ×2 (08:13→16:21)
[2019-10-18] MEDS: Isosorbide MONOnitrate (24 HR) 30 MG TAB.ER.24H PO SCH (08:13)
[2019-10-18] MEDS: Lactulose Oral Soln 20 GM/30 ML UDC PO SCH ×2 (08:13→21:15)
[2019-10-18 16:42] LABS: Amylase,Peritoneal Fluid < 10 Units/L (No Ref Range); Glucose,Peritoneal Fluid 359 mg/dL (No Ref Range); LDH,Peritoneal Fluid 59 Units/L (No Ref Range); Total Protein,Peritoneal Fluid < 3.0 g/dL
[2019-10-18 17:16] LABS: Appearance of Peritoneal Fl CLOUDY (Clear)
[2019-10-18 17:19] LABS: Basophils,Peritoneal Fluid 0 %; Eosinophils,Peritoneal Fluid 0 %
[2019-10-18] MEDS: GuaiFENesin Liq 200 MG/10 ML UDC PO PRN (17:46)
[2019-10-18] MEDS ORDERED: Insulin DETEMIR 100 UNIT/ML X5UNITS SQ SCH (21:00)
[2019-10-18] MEDS: Bumetanide 1 MG TABLET PO SCH (21:20)
[2019-10-18] MEDS: Acetaminophen 325 MG TABLET PO PRN (21:38)
[2019-10-19] MEDS: GuaiFENesin Liq 200 MG/10 ML UDC PO PRN ×2 (05:09→17:53)
[2019-10-19] MEDS: Isosorbide MONOnitrate (24 HR) 30 MG TAB.ER.24H PO SCH (08:57)
[2019-10-19] MEDS: Insulin LISPRO 300 UNITS/3 ML VIAL SQ SCH ×4 (08:57→22:07)
[2019-10-19] MEDS: Bumetanide 1 MG TABLET PO SCH (08:58)
[2019-10-19] MEDS: carvediloL 6.25 MG TABLET PO SCH ×2 (08:58→17:07)
[2019-10-19] MEDS ORDERED: Fluticasone Propionate Nasal 50 MCG/SPRAY BOTTLE NS SCH (09:00)
[2019-10-19] MEDS ORDERED: Loratadine 10 MG TABLET PO SCH (09:00)
[2019-10-19] MEDS ORDERED: ZINC ACETATE 50 MG PO SCH (09:00)
[2019-10-19] MEDS: Lactulose Oral Soln 20 GM/30 ML UDC PO SCH ×2 (09:08→22:13)
[2019-10-19 15:04] LABS: Hemoglobin 10.4 g/dL (11.5-15.4)
[2019-10-19 15:05] LABS: Basophils % 1.4 %; Eosinophils % 2.1 %; Hematocrit 32.1 % (35.3-44.9); Immature Granulocytes % 0.7 % (0-4); Lymphocytes # 0.3 K/mcL (0.6-4.6); Lymphocytes % 19.3 %; Mean Corpuscular HGB Conc 32.4 g/dL (31.6-35.5); Mean Corpuscular Hemoglobin 30.5 pg (28.0-33.3); Mean Corpuscular Volume 94.1 fL (83.0-100.0); Monocytes % 10.7 %; Red Blood Count 3.41 M/mcL (3.82-4.97); Red Cell Distribution Width 15.8 % (11.5-14.5); Segmented Neutrophils % 65.8 %; White Blood Count 1.4 K/mcL (4.3-11.1)
[2019-10-19 15:06] LABS: Monocytes # 0.2 K/mcL (0.0-1.3); Neutrophils # 0.9 K/mcL (1.6-8.9)
[2019-10-19 15:11] LABS: Mean Platelet Volume 11.2 fL (9.4-12.4); Platelet Count 35 K/mcL (140-400)
[2019-10-19 15:37] LABS: Alanine Aminotransferase 21 Units/L (7-52); Albumin 3.2 g/dL (3.5-5.7); Albumin/Globulin Ratio 1.3 (1.1-2.2); Alkaline Phosphatase 110 Units/L (34-104); Aspartate Amino Transferase 25 Units/L (13-39); BUN/Creatinine Ratio 25 (6-26); Blood Urea Nitrogen 24 mg/dL (8-23); Calcium 8.5 mg/dL (8.6-10.3); Carbon Dioxide 22 mEq/L (23-29); Chloride 101 mEq/L (98-107); Globulin 2.5 g/dL (2.4-3.5); Glucose 439 mg/dL (70-105); Osmolality,Calculated 305 (280-300); Potassium 4.2 mEq/L (3.5-5.1); Sodium 136 mEq/L (136-145); Total Protein 5.7 g/dL (6.4-8.9); eGFR For African Americans > 60 (> 60); eGFR For Non-African Americans 58 (> 60)
[2019-10-19] MEDS ORDERED: Bumetanide 1 MG TABLET PO SCH (17:00)
[2019-10-19] MEDS: Acetaminophen 325 MG TABLET PO PRN (17:53)
[2019-10-19 20:20] VITALS: BP 120/68
[2019-10-19] MEDS ORDERED: Insulin DETEMIR 100 UNIT/ML X5UNITS SQ SCH (21:00)
== END 2019-10-19 22:55 | disposition home or self-care (01) ==
LOC: EMEROOARM 14:47 → 2ANU 14:47 → SUATTDRO 19:56 → 2ANU 20:33
PROVIDERS: ADMIT Internal Medicine; ATTEND Internal Medicine

== ENCOUNTER 2020-03-31 15:52 | Observation (INO) ==
[2020-03-31 16:49] LABS: Basophils % 0.3 %; Immature Granulocytes % 0.3 % (0-4); Red Cell Distribution Width 17.2 % (11.5-14.5)
[2020-03-31 16:50] LABS: Eosinophils # 0.1 K/mcL (0.0-0.6); Hematocrit 28.9 % (35.3-44.9); Immature Platelets 4.1 % (1.1-6.1); Lymphocytes # 0.4 K/mcL (0.6-4.6); Mean Corpuscular HGB Conc 34.6 g/dL (31.6-35.5); Mean Corpuscular Hemoglobin 31.5 pg (28.0-33.3); Mean Corpuscular Volume 91.2 fL (83.0-100.0); Mean Platelet Volume 10.3 fL (9.4-12.4); Monocytes # 0.2 K/mcL (0.0-1.3); Monocytes % 6.7 %; Neutrophils # 2.7 K/mcL (1.6-8.9); Red Blood Count 3.17 M/mcL (3.82-4.97); Segmented Neutrophils % 78.7 %; White Blood Count 3.4 K/mcL (4.3-11.1)
[2020-03-31 17:00] LABS: INR 1.2
[2020-03-31 17:02] LABS: Platelet Count 74 K/mcL (140-400)
[2020-03-31 17:03] LABS: Activated Partial Thrombo Time 35.8 Seconds (26.0-36.0); Alanine Aminotransferase 19 Units/L (7-52); Albumin 3.2 g/dL (3.5-5.7); Albumin/Globulin Ratio 1.2 (1.1-2.2); Alkaline Phosphatase 112 Units/L (34-104); Aspartate Amino Transferase 26 Units/L (13-39); BUN/Creatinine Ratio 31 (6-26); Bilirubin,Direct 0.5 mg/dL (0.0-0.2); Bilirubin,Total 1.5 mg/dL (0.3-1.0); Blood Urea Nitrogen 33 mg/dL (8-23); Calcium 8.8 mg/dL (8.6-10.3); Carbon Dioxide 24 mEq/L (23-29); Chloride 106 mEq/L (98-107); Globulin 2.7 g/dL (2.4-3.5); Glucose 96 mg/dL (70-105); Lipase 48 Units/L (11-82); Osmolality,Calculated 291 (280-300); Sodium 137 mEq/L (136-145); Total Protein 5.9 g/dL (6.4-8.9); Troponin I < 0.03 ng/mL (< 0.04); eGFR For African Americans > 60 (> 60); eGFR For Non-African Americans 52 (> 60)
[2020-03-31] MEDS ORDERED: Lactulose Oral Soln 20 GM/30 ML UDC PO ONE (18:34)
[2020-03-31] MEDS ORDERED: Naloxone 0.4 MG/ML INJ IVP PRN (19:23)
[2020-03-31] MEDS ORDERED: 0.9 % Sodium Chloride 1,000 ML IVC SCH (19:30)
[2020-03-31 19:35] LABS: Bilirubin,Urine Negative (Negative); Blood,Urine Negative (Negative); Clarity,Urine Clear (Clear); Color,Urine Yellow (Yellow); Glucose,Urine (UA) Normal (Normal); Hyaline Casts,Urine Few per lpf (None Seen); Ketones,Urine Trace mg/dL (Negative); Leukocyte Esterase,Urine Negative (Negative); Mucus,Urine Few per lpf (None-Few); Nitrite,Urine Negative (Negative); PH,Urine 6.5 pH Units (5.0-8.0); Protein,Urine 30 mg/dL (Neg-Trace); Specific Gravity,Urine 1.028 (1.010-1.025); Squamous Epithelial Cell,Urine Few per hpf (None-Few); WBC,Urine 0-3 per hpf (0-3)
[2020-03-31] MEDS ORDERED: Lactulose 200 GM, Sodium Chloride IRRigation 700 ML RC SCH (21:15)
[2020-03-31 21:30] LABS: ABG Base Excess 0 mEq/L (-2 to 3); ABG HCO3 24 mEq/L (21-27); ABG Oxygen Saturation 98 % (95-98); ABG PCO2 34 mmHg (35-45); ABG PH 7.46 pH Units (7.32-7.45); ABG PO2 93 mmHg (85-104); ABG TCO2 25 mEq/L (20-26)
[2020-03-31] MEDS ORDERED: Isovue-370 500 ML BOTTLE IVP ONE ×2 (21:33→21:39)
[2020-03-31] MEDS ORDERED: D5% in Water 1,000 ML IVC PRN (22:06)
[2020-03-31] MEDS ORDERED: Dextrose Gel 15 GM/37.5 ML TUBE PO PRN ×2 (22:06)
[2020-03-31] MEDS ORDERED: *HR* Dextrose 50 % in Water (Vial) 50 ML VIAL IVP PRN (22:06)
[2020-03-31] MEDS: Pantoprazole 40 MG VIAL IVP SCH (22:53)
[2020-04-01] MEDS: Insulin LISPRO 300 UNITS/3 ML VIAL SQ SCH ×5 (00:40→17:38)
[2020-04-01 02:03] LABS: Red Cell Distribution Width 17.2 % (11.5-14.5)
[2020-04-01 02:05] LABS: Eosinophils % 1.1 %; Hemoglobin 10.5 g/dL (11.5-15.4); Immature Granulocytes % 0.4 % (0-4); Immature Platelets 4.2 % (1.1-6.1); Lymphocytes # 0.4 K/mcL (0.6-4.6); Lymphocytes % 12.9 %; Mean Corpuscular HGB Conc 33.9 g/dL (31.6-35.5); Mean Corpuscular Hemoglobin 31.2 pg (28.0-33.3); Mean Platelet Volume 10.6 fL (9.4-12.4); Monocytes # 0.2 K/mcL (0.0-1.3); Monocytes % 5.5 %; Neutrophils # 2.2 K/mcL (1.6-8.9); Red Blood Count 3.37 M/mcL (3.82-4.97); Segmented Neutrophils % 80.1 %; White Blood Count 2.7 K/mcL (4.3-11.1)
[2020-04-01 02:08] LABS: Platelet Count 65 K/mcL (140-400)
[2020-04-01 02:23] LABS: Alanine Aminotransferase 17 Units/L (7-52); Albumin/Globulin Ratio 1.2 (1.1-2.2); Alkaline Phosphatase 106 Units/L (34-104); Aspartate Amino Transferase 28 Units/L (13-39); BUN/Creatinine Ratio 35 (6-26); Bilirubin,Total 1.9 mg/dL (0.3-1.0); Blood Urea Nitrogen 31 mg/dL (8-23); Calcium 8.7 mg/dL (8.6-10.3); Carbon Dioxide 23 mEq/L (23-29); Chloride 107 mEq/L (98-107); Globulin 2.6 g/dL (2.4-3.5); Glucose 88 mg/dL (70-105); Magnesium 1.5 mg/dL (1.6-2.6); Osmolality,Calculated 292 (280-300); Phosphorous 3.3 mg/dL (2.7-4.5); Potassium 4.4 mEq/L (3.5-5.1); Sodium 138 mEq/L (136-145); Total Protein 5.6 g/dL (6.4-8.9); eGFR For African Americans > 60 (> 60); eGFR For Non-African Americans > 60 (> 60)
[2020-04-01] MEDS: Lactulose Oral Soln 20 GM/30 ML UDC PO SCH ×4 (05:12→22:00)
[2020-04-01] MEDS: Pantoprazole 40 MG VIAL IVP SCH (10:47)
[2020-04-01] MEDS ORDERED: Nitroglycerin 0.4 MG TAB.SUBL SL PRN (19:16)
[2020-04-01] MEDS ORDERED: Insulin LISPRO 300 UNITS/3 ML VIAL SQ SCH (21:00)
[2020-04-01] MEDS: Ranolazine 500 MG TAB.ER.12H PO SCH (22:00)
[2020-04-01] MEDS ORDERED: Ipratropium/Albuterol Neb 3 ML IH PRN (22:00)
[2020-04-01] MEDS: carvediloL 6.25 MG TABLET PO SCH (22:04)
[2020-04-02 06:53] LABS: Basophils % 0.3 %; Hemoglobin 10.2 g/dL (11.5-15.4); Red Cell Distribution Width 17.3 % (11.5-14.5)
[2020-04-02 06:55] LABS: Eosinophils # 0.1 K/mcL (0.0-0.6); Hematocrit 29.4 % (35.3-44.9); Immature Granulocytes % 0.3 % (0-4); Immature Platelets 1.8 % (1.1-6.1); Lymphocytes # 0.5 K/mcL (0.6-4.6); Lymphocytes % 15.5 %; Mean Corpuscular HGB Conc 34.7 g/dL (31.6-35.5); Mean Corpuscular Volume 92.2 fL (83.0-100.0); Mean Platelet Volume 10.7 fL (9.4-12.4); Monocytes # 0.3 K/mcL (0.0-1.3); Monocytes % 10.8 %; Neutrophils # 2.1 K/mcL (1.6-8.9); Red Blood Count 3.19 M/mcL (3.82-4.97); Segmented Neutrophils % 71.1 %
[2020-04-02 07:01] LABS: Platelet Count 73 K/mcL (140-400)
[2020-04-02 07:14] LABS: BUN/Creatinine Ratio 24 (6-26); Blood Urea Nitrogen 23 mg/dL (8-23); Carbon Dioxide 22 mEq/L (23-29); Chloride 104 mEq/L (98-107); Glucose 306 mg/dL (70-105); Osmolality,Calculated 293 (280-300); Potassium 4.2 mEq/L (3.5-5.1); Sodium 134 mEq/L (136-145); eGFR For African Americans > 60 (> 60); eGFR For Non-African Americans 59 (> 60)
[2020-04-02] MEDS ORDERED: Loratadine 10 MG TABLET PO SCH (09:00)
[2020-04-02] MEDS ORDERED: ZINC ACETATE PO SCH (09:00)
[2020-04-02] MEDS ORDERED: Bumetanide 1 MG TABLET PO SCH (09:00)
[2020-04-02] MEDS: Lactulose Oral Soln 20 GM/30 ML UDC PO SCH (09:31)
[2020-04-02] MEDS: Insulin LISPRO 300 UNITS/3 ML VIAL SQ SCH (09:31)
[2020-04-02] MEDS: Ranolazine 500 MG TAB.ER.12H PO SCH (09:32)
[2020-04-02] MEDS: carvediloL 6.25 MG TABLET PO SCH (09:32)
[2020-04-02 11:20] VITALS: BP 131/58
== END 2020-04-02 12:32 | disposition home or self-care (01) ==
LOC: EMEROOARM 15:52 → 3ANU 15:52 → SUATTDRO 19:12 → 3ANU 20:36
PROVIDERS: ADMIT Pharmacist; ATTEND Internal Medicine

== ENCOUNTER 2020-04-08 22:43 | Observation (INO) ==
[2020-04-09] MEDS ORDERED: Naloxone 0.4 MG/ML INJ IVP PRN (01:23)
[2020-04-09 02:19] LABS: Basophils % 0.3 %; Immature Granulocytes % 0.3 % (0-4)
[2020-04-09 02:20] LABS: Eosinophils # 0.1 K/mcL (0.0-0.6); Eosinophils % 1.6 %; Hematocrit 33.9 % (35.3-44.9); Hemoglobin 11.7 g/dL (11.5-15.4); Immature Platelets 2.6 % (1.1-6.1); Lymphocytes # 0.5 K/mcL (0.6-4.6); Lymphocytes % 12.2 %; Mean Corpuscular HGB Conc 34.5 g/dL (31.6-35.5); Mean Corpuscular Hemoglobin 31.7 pg (28.0-33.3); Mean Corpuscular Volume 91.9 fL (83.0-100.0); Mean Platelet Volume 10.7 fL (9.4-12.4); Monocytes # 0.2 K/mcL (0.0-1.3); Monocytes % 5.7 %; Red Blood Count 3.69 M/mcL (3.82-4.97); Red Cell Distribution Width 17.2 % (11.5-14.5); Segmented Neutrophils % 79.9 %; White Blood Count 3.7 K/mcL (4.3-11.1)
[2020-04-09 02:21] LABS: Platelet Count 69 K/mcL (140-400)
[2020-04-09 02:23] LABS: INR 1.3; Prothrombin Time 14.6 Seconds (9.4-12.1)
[2020-04-09 02:25] LABS: Activated Partial Thrombo Time 42.1 Seconds (26.0-36.0)
[2020-04-09 02:38] LABS: Alanine Aminotransferase 20 Units/L (7-52); Albumin 3.3 g/dL (3.5-5.7); Albumin/Globulin Ratio 1.1 (1.1-2.2); Alkaline Phosphatase 105 Units/L (34-104); Aspartate Amino Transferase 32 Units/L (13-39); BUN/Creatinine Ratio 31 (6-26); Bilirubin,Total 2.9 mg/dL (0.3-1.0); Blood Urea Nitrogen 28 mg/dL (8-23); Calcium 9.2 mg/dL (8.6-10.3); Carbon Dioxide 23 mEq/L (23-29); Chloride 107 mEq/L (98-107); Glucose 129 mg/dL (70-105); Osmolality,Calculated 297 (280-300); Phosphorous 3.1 mg/dL (2.7-4.5); Potassium 4.3 mEq/L (3.5-5.1); Sodium 140 mEq/L (136-145); Total Protein 6.3 g/dL (6.4-8.9); eGFR For African Americans > 60 (> 60); eGFR For Non-African Americans > 60 (> 60)
[2020-04-09] MEDS ORDERED: Lactulose 200 GM, Sodium Chloride IRRigation 700 ML RC ONE (02:40)
[2020-04-09 04:49] LABS: Mucus,Urine Few per lpf (None-Few); Squamous Epithelial Cell,Urine Few per hpf (None-Few)
[2020-04-09 04:57] LABS: Bilirubin,Urine Negative (Negative); Glucose,Urine (UA) Normal (Normal); Ketones,Urine Negative (Negative)
[2020-04-09 04:58] LABS: Blood,Urine Moderate (Negative); Clarity,Urine Clear (Clear); Leukocyte Esterase,Urine Negative (Negative); Nitrite,Urine Negative (Negative); PH,Urine 5.5 pH Units (5.0-8.0); Protein,Urine Trace mg/dL (Neg-Trace); Specific Gravity,Urine 1.015 (1.010-1.025); Urobilinogen,Urine Normal (Normal)
[2020-04-09 04:59] LABS: Color,Urine Light-Yellow (Yellow)
[2020-04-09 07:08] VITALS: BP 133/48
[2020-04-09] MEDS ORDERED: Lactulose Oral Soln 20 GM/30 ML UDC PO SCH (09:00)
== END 2020-04-09 13:10 | disposition home or self-care (01) ==
LOC: 2NENU
PROVIDERS: ADMIT Student in an Organized Health Care Education/Training Program; ATTEND Student in an Organized Health Care Education/Training Program

== ENCOUNTER 2021-01-19 15:25 | Observation (INO) ==
[2021-01-19 16:07] LABS: Eosinophils # 0.1 K/mcL (0.0-0.6); Eosinophils % 3.1 %; Hemoglobin 9.3 g/dL (11.5-15.4); Immature Granulocytes % 0.3 % (0-4); Immature Platelets 4.1 % (1.1-6.1); Lymphocytes # 0.4 K/mcL (0.6-4.6); Lymphocytes % 14.7 %; Mean Corpuscular HGB Conc 33.2 g/dL (31.6-35.5); Mean Corpuscular Hemoglobin 32.1 pg (28.0-33.3); Mean Corpuscular Volume 96.6 fL (83.0-100.0); Mean Platelet Volume 10.9 fL (9.4-12.4); Monocytes # 0.2 K/mcL (0.0-1.3); Neutrophils # 2.1 K/mcL (1.6-8.9); Red Cell Distribution Width 14.7 % (11.5-14.5); Segmented Neutrophils % 73.9 %; White Blood Count 2.9 K/mcL (4.3-11.1)
[2021-01-19 16:07] LABS: INR 1.3; Prothrombin Time 14.7 Seconds (9.4-12.1)
[2021-01-19 16:08] LABS: Platelet Count 82 K/mcL (140-400)
[2021-01-19 16:10] LABS: Activated Partial Thrombo Time 34.1 Seconds (26.0-36.0)
[2021-01-19 16:34] LABS: Alanine Aminotransferase 14 Units/L (7-52); Albumin 3.1 g/dL (3.5-5.7); Albumin/Globulin Ratio 1.3 (1.1-2.2); Alkaline Phosphatase 106 Units/L (34-104); Aspartate Amino Transferase 33 Units/L (13-39); BUN/Creatinine Ratio 24 (6-26); Bilirubin,Direct 0.3 mg/dL (0.0-0.2); Bilirubin,Indirect 1.4 mg/dL (0.0-1.0); Bilirubin,Total 1.7 mg/dL (0.3-1.0); Blood Urea Nitrogen 31 mg/dL (8-23); Calcium 8.6 mg/dL (8.6-10.3); Carbon Dioxide 29 mEq/L (23-29); Chloride 107 mEq/L (98-107); Ethanol < 10 mg/dL (Less than 10); Globulin 2.3 g/dL (2.4-3.5); Glucose 231 mg/dL (70-105); Osmolality,Calculated 304 (280-300); Potassium 4.6 mEq/L (3.5-5.1); Sodium 140 mEq/L (136-145); Thyroid Stimulating Hormone 10.348 mcIU/mL (0.340-5.600); Total Protein 5.4 g/dL (6.4-8.9); Troponin I < 0.03 ng/mL (< 0.04); eGFR For African Americans 50 (> 60); eGFR For Non-African Americans 41 (> 60)
[2021-01-19 16:38] LABS: Bilirubin,Urine Negative (Negative); Blood,Urine Negative (Negative); Clarity,Urine Clear (Clear); Color,Urine Yellow (Yellow); Glucose,Urine (UA) Normal (Normal); Hyaline Casts,Urine Few per lpf (None Seen); Ketones,Urine Negative (Negative); Leukocyte Esterase,Urine Trace (Negative); Mucus,Urine Few per lpf (None-Few); Nitrite,Urine Negative (Negative); Protein,Urine 30 mg/dL (Neg-Trace); RBC,Urine 0-3 per hpf (0-3); Specific Gravity,Urine 1.024 (1.010-1.025); Squamous Epithelial Cell,Urine Few per hpf (None-Few); WBC,Urine 0-3 per hpf (0-3)
[2021-01-19 16:57] LABS: Amphetamine Screen,Urine Negative ng/mL (Cutoff=1000); Barbiturate Screen,Urine Negative ng/mL (Cutoff=200); Benzodiazepines Screen,Urine Negative ng/mL (Cutoff=200); Cannabinoid Screen,Urine Negative ng/mL (Cutoff = 50); Cocaine Screen,Urine Negative ng/mL (Cutoff= 300); Opiate Screen,Urine Negative ng/mL (Cutoff=300); Phencyclidine Screen,Urine Negative ng/mL (Cutoff=25)
[2021-01-19] MEDS ORDERED: 0.9 % Sodium Chloride 500 ML IVC ONE (17:18)
[2021-01-19] MEDS ORDERED: Lactulose Oral Soln 20 GM/30 ML UDC PO ONE (17:22)
[2021-01-19] MEDS ORDERED: *HR* Dextrose 50 % in Water (Vial) 50 ML VIAL IVP PRN (18:07)
[2021-01-19] MEDS ORDERED: Naloxone 0.4 MG/ML INJ IVP PRN (18:07)
[2021-01-19] MEDS ORDERED: D5% in Water 1,000 ML IVC PRN (18:07)
[2021-01-19] MEDS ORDERED: Dextrose Gel 15 GM/37.5 ML TUBE PO PRN ×2 (18:07)
[2021-01-19] MEDS ORDERED: INSULIN PUMP CARTRIDGE SQ SCH (20:45)
[2021-01-19] MEDS ORDERED: Nitroglycerin 0.4 MG TAB.SUBL SL PRN ×2 (20:45→21:00)
[2021-01-19] MEDS: Ranolazine 500 MG TAB.ER.12H PO SCH (21:37)
[2021-01-19] MEDS: Insulin LISPRO 300 UNITS/3 ML VIAL SUBQ SCH (21:38)
[2021-01-19] MEDS: carvediloL 6.25 MG TABLET PO SCH (21:38)
[2021-01-19] MEDS: Lactulose Oral Soln 20 GM/30 ML UDC PO SCH (21:39)
[2021-01-20 07:24] LABS: Immature Granulocytes % 0.3 % (0-4)
[2021-01-20 07:25] LABS: Hematocrit 28.8 % (35.3-44.9); Hemoglobin 9.5 g/dL (11.5-15.4); Immature Platelets 4.2 % (1.1-6.1); Mean Corpuscular Hemoglobin 32.1 pg (28.0-33.3); Mean Corpuscular Volume 97.3 fL (83.0-100.0); Mean Platelet Volume 10.8 fL (9.4-12.4); Red Blood Count 2.96 M/mcL (3.82-4.97); Segmented Neutrophils % 77.2 %; White Blood Count 3.2 K/mcL (4.3-11.1)
[2021-01-20 07:26] LABS: Basophils % 1.2 %; Eosinophils # 0.1 K/mcL (0.0-0.6); Eosinophils % 3.4 %; Lymphocytes # 0.3 K/mcL (0.6-4.6); Lymphocytes % 10.5 %; Monocytes # 0.2 K/mcL (0.0-1.3); Monocytes % 7.4 %; Neutrophils # 2.5 K/mcL (1.6-8.9)
[2021-01-20 07:30] LABS: Calcium 8.6 mg/dL (8.6-10.3); Potassium 4.2 mEq/L (3.5-5.1)
[2021-01-20 07:55] LABS: Platelet Count 79 K/mcL (140-400)
[2021-01-20] MEDS: Insulin LISPRO 300 UNITS/3 ML VIAL SUBQ SCH ×4 (09:02→21:52)
[2021-01-20] MEDS: Ranolazine 500 MG TAB.ER.12H PO SCH ×2 (09:02→21:50)
[2021-01-20] MEDS: Lactulose Oral Soln 20 GM/30 ML UDC PO SCH ×4 (09:02→21:50)
[2021-01-20] MEDS: carvediloL 6.25 MG TABLET PO SCH ×2 (09:02→17:41)
[2021-01-20] MEDS: Loratadine 10 MG TABLET PO SCH (09:02)
[2021-01-20 10:56] LABS: Protein/Creatinine Ratio,Urine 0.22 mg/mg (0.00-0.20)
[2021-01-20] MEDS ORDERED: Albumin Human 5% 12.5 GM/250 ML IV.SOLN IVPB ONE (12:26)
[2021-01-20] MEDS ORDERED: *HR* LORazepam 1 MG TABLET PO PRN ×2 (13:35→15:12)
[2021-01-20] MEDS ORDERED: Acetaminophen 325 MG TABLET PO ONE (15:26)
[2021-01-20] MEDS: Insulin DETEMIR 100 UNIT/ML X5UNITS SUBQ SCH (15:33)
[2021-01-20] MEDS: Gabapentin 100 MG CAPSULE PO SCH (22:16)
[2021-01-21 02:25] LABS: Basophils % 0.6 %; Hemoglobin 9.6 g/dL (11.5-15.4); Immature Granulocytes % 0.3 % (0-4); Mean Corpuscular Volume 98.3 fL (83.0-100.0)
[2021-01-21 02:27] LABS: Eosinophils # 0.1 K/mcL (0.0-0.6); Eosinophils % 3.2 %; Hematocrit 28.6 % (35.3-44.9); Lymphocytes # 0.4 K/mcL (0.6-4.6); Lymphocytes % 12.5 %; Mean Corpuscular HGB Conc 33.6 g/dL (31.6-35.5); Monocytes # 0.2 K/mcL (0.0-1.3); Monocytes % 7.7 %; Neutrophils # 2.4 K/mcL (1.6-8.9); Red Blood Count 2.91 M/mcL (3.82-4.97); Segmented Neutrophils % 75.7 %; White Blood Count 3.1 K/mcL (4.3-11.1)
[2021-01-21 02:28] LABS: Platelet Count 90 K/mcL (140-400)
[2021-01-21 02:47] LABS: Calcium 8.5 mg/dL (8.6-10.3); Potassium 4.1 mEq/L (3.5-5.1)
[2021-01-21] MEDS: Insulin LISPRO 300 UNITS/3 ML VIAL SUBQ SCH ×5 (08:43→21:20)
[2021-01-21] MEDS: carvediloL 6.25 MG TABLET PO SCH ×2 (08:44→17:07)
[2021-01-21] MEDS: Isosorbide MONOnitrate (24 HR) 30 MG TAB.ER.24H PO SCH (08:44)
[2021-01-21] MEDS: Lactulose Oral Soln 20 GM/30 ML UDC PO SCH ×3 (08:45→21:18)
[2021-01-21] MEDS: Gabapentin 100 MG CAPSULE PO SCH ×3 (08:45→21:18)
[2021-01-21] MEDS: Loratadine 10 MG TABLET PO SCH (08:45)
[2021-01-21] MEDS: Ranolazine 500 MG TAB.ER.12H PO SCH ×2 (08:45→21:19)
[2021-01-21] MEDS: Calcium Gluconate 1gm/50mL 1 GM/50 ML BAG IVPB SCH ×2 (09:07→10:14)
[2021-01-21] MEDS: Insulin DETEMIR 100 UNIT/ML X5UNITS SUBQ SCH (09:10)
[2021-01-21] MEDS ORDERED: Ondansetron ODT 4 MG TAB.RAPDIS SL PRN (22:28)
[2021-01-21] MEDS ORDERED: Ibuprofen 600 MG TABLET PO PRN (23:52)
[2021-01-22 01:28] LABS: Red Blood Count 2.87 M/mcL (3.82-4.97); Red Cell Distribution Width 15.2 % (11.5-14.5)
[2021-01-22 01:29] LABS: Hematocrit 28.6 % (35.3-44.9); Hemoglobin 9.2 g/dL (11.5-15.4); Immature Platelets 5.5 % (1.1-6.1); Mean Corpuscular HGB Conc 32.2 g/dL (31.6-35.5); Mean Corpuscular Hemoglobin 32.1 pg (28.0-33.3); Mean Corpuscular Volume 99.7 fL (83.0-100.0); Mean Platelet Volume 10.8 fL (9.4-12.4); White Blood Count 3.6 K/mcL (4.3-11.1)
[2021-01-22 01:39] LABS: Calcium 8.8 mg/dL (8.6-10.3); Magnesium 1.8 mg/dL (1.6-2.6); Phosphorous 3.1 mg/dL (2.7-4.5); Potassium 4.2 mEq/L (3.5-5.1)
[2021-01-22 06:36] VITALS: BP 141/56
[2021-01-22] MEDS: carvediloL 6.25 MG TABLET PO SCH (07:47)
[2021-01-22] MEDS: Ranolazine 500 MG TAB.ER.12H PO SCH (07:47)
[2021-01-22] MEDS: Gabapentin 100 MG CAPSULE PO SCH (07:48)
[2021-01-22] MEDS: Loratadine 10 MG TABLET PO SCH (07:48)
[2021-01-22] MEDS: Isosorbide MONOnitrate (24 HR) 30 MG TAB.ER.24H PO SCH (07:49)
[2021-01-22] MEDS: Insulin LISPRO 300 UNITS/3 ML VIAL SUBQ SCH ×2 (07:50→07:51)
[2021-01-22] MEDS: Lactulose Oral Soln 20 GM/30 ML UDC PO SCH (07:52)
[2021-01-22] MEDS ORDERED: Furosemide 20 MG TABLET PO SCH (09:00)
[2021-01-22] MEDS ORDERED: Insulin DETEMIR 100 UNIT/ML X5UNITS SUBQ SCH (09:00)
[2021-01-22] MEDS ORDERED: Fluticasone Propionate Nasal 50 MCG/SPRAY BOTTLE NS SCH (09:00)
== END 2021-01-22 09:47 | disposition home health service (06) ==
LOC: 3ANU 15:25 → EMEROOARM 15:25 → SUATTDRO 17:54 → 3ANU 18:54
PROVIDERS: ADMIT General Practice; ATTEND Internal Medicine

== ENCOUNTER 2021-05-02 09:12 | Inpatient (IN) ==
[2021-05-02 10:10] LABS: Basophils % 0.6 %; Eosinophils # 0.1 K/mcL (0.0-0.6); Eosinophils % 2.2 %; Hematocrit 28.9 % (35.3-44.9); Hemoglobin 9.6 g/dL (11.5-15.4); Immature Granulocytes % 0.3 % (0-4); Lymphocytes # 0.4 K/mcL (0.6-4.6); Lymphocytes % 10.6 %; Mean Corpuscular HGB Conc 33.2 g/dL (31.6-35.5); Mean Corpuscular Hemoglobin 31.6 pg (28.0-33.3); Mean Corpuscular Volume 95.1 fL (83.0-100.0); Mean Platelet Volume 10.4 fL (9.4-12.4); Monocytes # 0.3 K/mcL (0.0-1.3); Monocytes % 7.5 %; Neutrophils # 2.8 K/mcL (1.6-8.9); Platelet Count 102 K/mcL (140-400); Red Blood Count 3.04 M/mcL (3.82-4.97); Red Cell Distribution Width 14.6 % (11.5-14.5); Segmented Neutrophils % 78.8 %; White Blood Count 3.6 K/mcL (4.3-11.1)
[2021-05-02 10:17] LABS: Albumin 3.5 g/dL (3.5-5.7); Albumin/Globulin Ratio 1.3 (1.1-2.2); Bilirubin,Direct 0.4 mg/dL (0.0-0.2); Bilirubin,Indirect 1.5 mg/dL (0.0-1.0); Bilirubin,Total 1.9 mg/dL (0.3-1.0); Calcium 9.4 mg/dL (8.6-10.3); Globulin 2.6 g/dL (2.4-3.5); Potassium 4.1 mEq/L (3.5-5.1); Total Protein 6.1 g/dL (6.4-8.9)
[2021-05-02 10:18] LABS: INR 1.4; Prothrombin Time 16.1 Seconds (9.4-12.1)
[2021-05-02 10:21] LABS: Activated Partial Thrombo Time 28.6 Seconds (26.0-36.0)
[2021-05-02] MEDS ORDERED: Lactulose Oral Soln 20 GM/30 ML UDC PO ONE ×2 (10:38→12:27)
[2021-05-02 10:46] LABS: Bacteria,Urine Few per hpf (None-Few); Bilirubin,Urine Negative (Negative); Blood,Urine Negative (Negative); Clarity,Urine Clear (Clear); Color,Urine Light-Yellow (Yellow); Glucose,Urine (UA) Normal (Normal); Hyaline Casts,Urine Few per lpf (None Seen); Ketones,Urine Negative (Negative); Leukocyte Esterase,Urine Moderate (Negative); Nitrite,Urine Negative (Negative); Protein,Urine Trace mg/dL (Neg-Trace); Specific Gravity,Urine 1.015 (1.010-1.025); Squamous Epithelial Cell,Urine Few per hpf (None-Few); Transitional Epi Cells,Urine Few per hpf (None-Few); Urobilinogen,Urine Normal (Normal); WBC,Urine 15-30 per hpf (0-3)
[2021-05-02] MEDS ORDERED: Naloxone 0.4 MG/ML INJ IVP PRN ×2 (13:25→13:28)
[2021-05-02] MEDS ORDERED: Ondansetron 4 MG/2 ML VIAL IVP PRN (13:28)
[2021-05-02] MEDS ORDERED: Dextrose Gel 15 GM/37.5 ML TUBE PO PRN ×2 (13:30)
[2021-05-02] MEDS ORDERED: D5% in Water 1,000 ML IVC PRN (13:30)
[2021-05-02] MEDS ORDERED: *HR* Dextrose 50 % in Water (Vial) 50 ML VIAL IVP PRN (13:30)
[2021-05-02] MEDS ORDERED: Perflutren Lipid Microsphere 1.3 ML in 0.9 % Sodium Chloride 8.7 ML IVP PRN (13:36)
[2021-05-02] MEDS: cefTRIAXone 1,000 MG in 0.9 % Sodium Chloride Mini Bag 100 ML IVPB SCH (14:32)
[2021-05-02 16:16] LABS: VBG HCO3 30 mEq/L (21-27); VBG PCO2 37 mmHg (41-51); VBG PH 7.51 pH Units (7.32-7.42); VBG PO2 212 mmHg (25-50)
[2021-05-02] MEDS ORDERED: Insulin LISPRO 300 UNITS/3 ML VIAL SUBQ SCH ×2 (16:30→21:00)
[2021-05-02] MEDS: carvediloL 6.25 MG TABLET PO SCH (17:54)
[2021-05-02] MEDS: Ranolazine 500 MG TAB.ER.12H PO SCH (19:01)
[2021-05-02] MEDS: Lactulose Oral Soln 20 GM/30 ML UDC PO SCH (20:37)
[2021-05-02] MEDS: Acetaminophen 325 MG TABLET PO PRN (22:42)
[2021-05-03 03:17] LABS: Basophils % 0.7 %
[2021-05-03 03:19] LABS: Eosinophils # 0.1 K/mcL (0.0-0.6); Eosinophils % 2.9 %; Hematocrit 26.6 % (35.3-44.9); Hemoglobin 8.8 g/dL (11.5-15.4); Lymphocytes # 0.4 K/mcL (0.6-4.6); Lymphocytes % 14.4 %; Mean Corpuscular HGB Conc 33.1 g/dL (31.6-35.5); Mean Corpuscular Hemoglobin 31.7 pg (28.0-33.3); Mean Corpuscular Volume 95.7 fL (83.0-100.0); Mean Platelet Volume 10.8 fL (9.4-12.4); Monocytes # 0.2 K/mcL (0.0-1.3); Monocytes % 8.3 %; Neutrophils # 2.1 K/mcL (1.6-8.9); Red Blood Count 2.78 M/mcL (3.82-4.97); Red Cell Distribution Width 14.5 % (11.5-14.5); Segmented Neutrophils % 73.7 %; White Blood Count 2.8 K/mcL (4.3-11.1)
[2021-05-03 03:26] LABS: INR 1.5; Prothrombin Time 17.2 Seconds (9.4-12.1)
[2021-05-03 03:29] LABS: Platelet Count 99 K/mcL (140-400)
[2021-05-03 03:37] LABS: Albumin 3.1 g/dL (3.5-5.7); Albumin/Globulin Ratio 1.3 (1.1-2.2); Bilirubin,Direct 0.4 mg/dL (0.0-0.2); Bilirubin,Indirect 1.5 mg/dL (0.0-1.0); Bilirubin,Total 1.9 mg/dL (0.3-1.0); Calcium 8.8 mg/dL (8.6-10.3); Globulin 2.3 g/dL (2.4-3.5); Magnesium 1.6 mg/dL (1.6-2.6); Phosphorous 3.5 mg/dL (2.7-4.5); Potassium 3.5 mEq/L (3.5-5.1); Total Protein 5.4 g/dL (6.4-8.9)
[2021-05-03] MEDS: Ranolazine 500 MG TAB.ER.12H PO SCH ×3 (06:28→16:48)
[2021-05-03] MEDS: carvediloL 6.25 MG TABLET PO SCH ×2 (08:35→16:45)
[2021-05-03] MEDS: Isosorbide MONOnitrate (24 HR) 30 MG TAB.ER.24H PO SCH (08:35)
[2021-05-03] MEDS: Lactulose Oral Soln 20 GM/30 ML UDC PO SCH ×3 (08:36→21:05)
[2021-05-03] MEDS: cefTRIAXone 1,000 MG in 0.9 % Sodium Chloride Mini Bag 100 ML IVPB SCH (13:28)
[2021-05-03] MEDS: Bumetanide 1 MG TABLET PO SCH (16:45)
[2021-05-03] MEDS: Acetaminophen 325 MG TABLET PO PRN (21:03)
[2021-05-03] MEDS ORDERED: Melatonin 3 MG TABLET PO ONE (22:47)
[2021-05-04 05:40] LABS: Immature Granulocytes % 0.4 % (0-4); Lymphocytes % 10.2 %; Red Cell Distribution Width 14.1 % (11.5-14.5)
[2021-05-04 05:42] LABS: Basophils % 0.8 %; Eosinophils # 0.1 K/mcL (0.0-0.6); Eosinophils % 2.6 %; Hematocrit 23.9 % (35.3-44.9); Hemoglobin 8.1 g/dL (11.5-15.4); Immature Platelets 3.2 % (1.1-6.1); Lymphocytes # 0.3 K/mcL (0.6-4.6); Mean Corpuscular HGB Conc 33.9 g/dL (31.6-35.5); Mean Corpuscular Volume 94.5 fL (83.0-100.0); Mean Platelet Volume 10.4 fL (9.4-12.4); Monocytes # 0.3 K/mcL (0.0-1.3); Monocytes % 9.4 %; Red Blood Count 2.53 M/mcL (3.82-4.97); Segmented Neutrophils % 76.6 %; White Blood Count 2.7 K/mcL (4.3-11.1)
[2021-05-04 05:44] LABS: Neutrophils # 2.1 K/mcL (1.6-8.9); Platelet Count 91 K/mcL (140-400)
[2021-05-04 05:52] LABS: INR 1.5; Prothrombin Time 16.6 Seconds (9.4-12.1)
[2021-05-04 05:54] LABS: Albumin 2.9 g/dL (3.5-5.7); Albumin/Globulin Ratio 1.3 (1.1-2.2); Bilirubin,Direct 0.4 mg/dL (0.0-0.2); Bilirubin,Indirect 1.1 mg/dL (0.0-1.0); Bilirubin,Total 1.5 mg/dL (0.3-1.0); Calcium 8.7 mg/dL (8.6-10.3); Globulin 2.2 g/dL (2.4-3.5); Potassium 3.9 mEq/L (3.5-5.1); Total Protein 5.1 g/dL (6.4-8.9)
[2021-05-04] MEDS: Ranolazine 500 MG TAB.ER.12H PO SCH ×2 (06:21→16:35)
[2021-05-04] MEDS: carvediloL 6.25 MG TABLET PO SCH ×2 (09:52→16:34)
[2021-05-04] MEDS: Isosorbide MONOnitrate (24 HR) 30 MG TAB.ER.24H PO SCH (09:52)
[2021-05-04] MEDS: Bumetanide 1 MG TABLET PO SCH (09:54)
[2021-05-04] MEDS: Insulin LISPRO 300 UNITS/3 ML VIAL SUBQ SCH ×4 (09:54→17:34)
[2021-05-04] MEDS: Lactulose Oral Soln 20 GM/30 ML UDC PO SCH ×3 (09:54→19:32)
[2021-05-04] MEDS: Bisacodyl 10 MG RECTAL SUPPOSITORY RC SCH (09:54)
[2021-05-04] MEDS: cefTRIAXone 1,000 MG in 0.9 % Sodium Chloride Mini Bag 100 ML IVPB SCH (13:06)
[2021-05-04] MEDS ORDERED: SODIUM CHLORIDE/NAHCO3/KCL/PEG 4,000 ML SOLN.RECON PO ONE (13:31)
[2021-05-04] MEDS ORDERED: Iron Sucrose Complex 400 MG in 0.9 % Sodium Chloride 250 ML IVPB ONE (13:31)
[2021-05-04] MEDS ORDERED: Furosemide 40 MG/4 ML VIAL IVP ONE (13:54)
[2021-05-04] MEDS: Albumin 25% 25gram/100mL 25 GM/100 ML IV.SOLN IVPB SCH (16:36)
[2021-05-04] MEDS ORDERED: Insulin LISPRO 300 UNITS/3 ML VIAL SUBQ SCH ×2 (21:00)
[2021-05-05 01:06] LABS: Basophils % 0.4 %; Immature Granulocytes % 0.4 % (0-4); Red Cell Distribution Width 14.1 % (11.5-14.5)
[2021-05-05 01:08] LABS: Eosinophils # 0.1 K/mcL (0.0-0.6); Eosinophils % 2.5 %; Hematocrit 23.1 % (35.3-44.9); Hemoglobin 7.9 g/dL (11.5-15.4); Lymphocytes # 0.2 K/mcL (0.6-4.6); Lymphocytes % 7.6 %; Mean Corpuscular HGB Conc 34.2 g/dL (31.6-35.5); Mean Corpuscular Hemoglobin 31.9 pg (28.0-33.3); Mean Corpuscular Volume 93.1 fL (83.0-100.0); Mean Platelet Volume 10.4 fL (9.4-12.4); Monocytes # 0.3 K/mcL (0.0-1.3); Monocytes % 9.8 %; Neutrophils # 2.2 K/mcL (1.6-8.9); Platelet Count 83 K/mcL (140-400); Red Blood Count 2.48 M/mcL (3.82-4.97); Segmented Neutrophils % 79.3 %; White Blood Count 2.8 K/mcL (4.3-11.1)
[2021-05-05 01:13] LABS: INR 1.5
[2021-05-05 01:27] LABS: Albumin 3.3 g/dL (3.5-5.7); Albumin/Globulin Ratio 1.4 (1.1-2.2); Bilirubin,Direct 0.4 mg/dL (0.0-0.2); Bilirubin,Total 1.4 mg/dL (0.3-1.0); Calcium 9.1 mg/dL (8.6-10.3); Globulin 2.3 g/dL (2.4-3.5); Potassium 3.6 mEq/L (3.5-5.1); Total Protein 5.6 g/dL (6.4-8.9)
[2021-05-05] MEDS: Albumin 25% 25gram/100mL 25 GM/100 ML IV.SOLN IVPB SCH ×2 (02:07→08:27)
[2021-05-05] MEDS: Ranolazine 500 MG TAB.ER.12H PO SCH (06:16)
[2021-05-05] MEDS: Isosorbide MONOnitrate (24 HR) 30 MG TAB.ER.24H PO SCH (08:26)
[2021-05-05] MEDS: carvediloL 6.25 MG TABLET PO SCH (08:26)
[2021-05-05] MEDS: Bisacodyl 10 MG RECTAL SUPPOSITORY RC SCH (08:27)
[2021-05-05] MEDS: Lactulose Oral Soln 20 GM/30 ML UDC PO SCH (08:27)
[2021-05-05] MEDS: Insulin LISPRO 300 UNITS/3 ML VIAL SUBQ SCH ×2 (08:27→12:23)
[2021-05-05 10:35] VITALS: BP 122/64; PULSE 55; TEMP 97.7; O2SAT 97
[2021-05-05 14:14] LABS: Hematocrit 23.3 % (35.3-44.9)
== END 2021-05-05 15:42 | disposition home health service (06) | DRG 441 ==
LOC: 3BNU 09:12 → EMEROOARM 09:12 → SUATTDRO 12:35 → 3BNU 13:52
PROVIDERS: ADMIT Internal Medicine; ATTEND Registered Nurse

== ENCOUNTER 2022-01-22 15:42 | Inpatient (IN) ==
[2022-01-22 16:52] LABS: Basophils % 0.8 %; Eosinophils # 0.1 K/mcL (0.0-0.6); Eosinophils % 2.8 %; Hematocrit 28.5 % (35.3-44.9); Immature Granulocytes % 0.4 % (0-4); Immature Platelets 3.3 % (1.1-6.1); Lymphocytes # 0.6 K/mcL (0.6-4.6); Lymphocytes % 12.4 %; Mean Corpuscular HGB Conc 35.1 g/dL (31.6-35.5); Mean Corpuscular Hemoglobin 32.6 pg (28.0-33.3); Mean Corpuscular Volume 92.8 fL (83.0-100.0); Mean Platelet Volume 10.9 fL (9.4-12.4); Monocytes # 0.3 K/mcL (0.0-1.3); Monocytes % 5.6 %; Neutrophils # 3.9 K/mcL (1.6-8.9); Red Blood Count 3.07 M/mcL (3.82-4.97); Red Cell Distribution Width 13.3 % (11.5-14.5)
[2022-01-22 17:07] LABS: Alanine Aminotransferase 13 Units/L (7-52); Albumin/Globulin Ratio 1.3 (1.1-2.2); Alkaline Phosphatase 146 Units/L (34-104); Aspartate Amino Transferase 28 Units/L (13-39); BUN/Creatinine Ratio 17 (6-26); Bilirubin,Direct 0.7 mg/dL (0.0-0.2); Bilirubin,Indirect 2.3 mg/dL (0.0-1.0); Blood Urea Nitrogen 21 mg/dL (8-23); Calcium 9.1 mg/dL (8.6-10.3); Carbon Dioxide 29 mEq/L (23-29); Chloride 99 mEq/L (98-107); Ethanol < 10 mg/dL (Less than 10); Globulin 2.3 g/dL (2.4-3.5); Glucose 264 mg/dL (70-105); Osmolality,Calculated 294 (280-300); Potassium 4.7 mEq/L (3.5-5.1); Sodium 136 mEq/L (136-145); Total Protein 5.3 g/dL (6.4-8.9); Troponin I < 0.03 ng/mL (< 0.04); eGFR For African Americans 54 (> 60); eGFR For Non-African Americans 45 (> 60)
[2022-01-22 17:12] LABS: Platelet Count 86 K/mcL (140-400)
[2022-01-22] MEDS ORDERED: Lactulose Oral Soln 20 GM/30 ML UDC PO ONE (17:26)
[2022-01-22] MEDS ORDERED: Naloxone 0.4 MG/ML INJ IVP PRN (17:39)
[2022-01-22] MEDS ORDERED: Lactulose 200 GM, Sodium Chloride IRRigation 700 ML RC PRN (18:35)
[2022-01-22] MEDS ORDERED: D5% in Water 1,000 ML IVC PRN (18:37)
[2022-01-22] MEDS ORDERED: Dextrose 4 GM Chewable Tablets PO PRN ×2 (18:37)
[2022-01-22] MEDS ORDERED: *HR* Dextrose 50 % in Water (Syg) 50 ML SYRINGE IVP PRN (18:37)
[2022-01-22] MEDS ORDERED: Insulin LISPRO 300 UNITS/3 ML VIAL SUBQ SCH (18:38)
[2022-01-22] MEDS: Lactulose Oral Soln 20 GM/30 ML UDC PO SCH (20:17)
[2022-01-22] MEDS: Insulin LISPRO 300 UNITS/3 ML VIAL SUBQ SCH (20:30)
[2022-01-22 23:19] LABS: INR 1.2; Prothrombin Time 13.9 Seconds (9.4-12.1)
[2022-01-22 23:21] LABS: Activated Partial Thrombo Time 36.6 Seconds (26.0-36.0)
[2022-01-23 00:49] LABS: Amphetamine Screen,Urine Negative ng/mL (Cutoff=1000); Barbiturate Screen,Urine Negative ng/mL (Cutoff=200); Benzodiazepines Screen,Urine Negative ng/mL (Cutoff=200); Cannabinoid Screen,Urine Negative ng/mL (Cutoff = 50); Cocaine Screen,Urine Negative ng/mL (Cutoff= 300); Opiate Screen,Urine Negative ng/mL (Cutoff=300); Phencyclidine Screen,Urine Negative ng/mL (Cutoff=25)
[2022-01-23 00:51] LABS: Bacteria,Urine Few per hpf (None-Few); Bilirubin,Urine Negative (Negative); Blood,Urine Negative (Negative); Clarity,Urine Clear (Clear); Color,Urine Yellow (Yellow); Glucose,Urine (UA) Normal (Normal); Hyaline Casts,Urine Moderate per lpf (None Seen); Ketones,Urine Trace mg/dL (Negative); Leukocyte Esterase,Urine Moderate (Negative); Mucus,Urine Few per lpf (None-Few); Nitrite,Urine Negative (Negative); Protein,Urine 50 mg/dL (Neg-Trace); Squamous Epithelial Cell,Urine Moderate per hpf (None-Few); Urobilinogen,Urine >=8.0 mg/dL (Normal)
[2022-01-23] MEDS: Lactulose Oral Soln 20 GM/30 ML UDC PO SCH ×3 (07:56→20:12)
[2022-01-23] MEDS: Insulin LISPRO 300 UNITS/3 ML VIAL SUBQ SCH ×4 (07:58→20:11)
[2022-01-23 08:45] LABS: Hemoglobin 9.3 g/dL (11.5-15.4); Immature Granulocytes % 0.3 % (0-4); Red Cell Distribution Width 13.4 % (11.5-14.5)
[2022-01-23 08:47] LABS: Basophils % 0.8 %; Eosinophils # 0.2 K/mcL (0.0-0.6); Eosinophils % 4.8 %; Hematocrit 26.3 % (35.3-44.9); Immature Platelets 2.7 % (1.1-6.1); Lymphocytes # 0.7 K/mcL (0.6-4.6); Lymphocytes % 17.3 %; Mean Corpuscular HGB Conc 35.4 g/dL (31.6-35.5); Mean Corpuscular Hemoglobin 32.6 pg (28.0-33.3); Mean Corpuscular Volume 92.3 fL (83.0-100.0); Mean Platelet Volume 10.3 fL (9.4-12.4); Monocytes # 0.3 K/mcL (0.0-1.3); Monocytes % 7.1 %; Neutrophils # 2.7 K/mcL (1.6-8.9); Red Blood Count 2.85 M/mcL (3.82-4.97); Segmented Neutrophils % 69.7 %; White Blood Count 3.9 K/mcL (4.3-11.1)
[2022-01-23 08:49] LABS: Platelet Count 87 K/mcL (140-400)
[2022-01-23 09:05] LABS: Calcium 8.8 mg/dL (8.6-10.3); Potassium 4.1 mEq/L (3.5-5.1)
[2022-01-23] MEDS ORDERED: *HR* LORazepam 1 MG TABLET PO PRN (09:33)
[2022-01-23] MEDS ORDERED: Nitroglycerin 0.4 MG TAB.SUBL SL PRN (09:33)
[2022-01-23] MEDS ORDERED: Acetaminophen 325 MG TABLET PO PRN (14:30)
[2022-01-23] MEDS: Gabapentin 100 MG CAPSULE PO SCH ×2 (14:38→20:12)
[2022-01-23] MEDS ORDERED: Insulin DETEMIR 100 UNIT/ML X5UNITS SUBQ SCH (21:00)
[2022-01-24 05:38] LABS: Hematocrit 24.6 % (35.3-44.9); Immature Granulocytes % 0.3 % (0-4)
[2022-01-24 05:40] LABS: Basophils % 0.9 %; Eosinophils # 0.2 K/mcL (0.0-0.6); Eosinophils % 5.7 %; Hemoglobin 8.8 g/dL (11.5-15.4); Immature Platelets 2.4 % (1.1-6.1); Lymphocytes # 0.7 K/mcL (0.6-4.6); Lymphocytes % 19.7 %; Mean Corpuscular HGB Conc 35.8 g/dL (31.6-35.5); Mean Corpuscular Hemoglobin 32.4 pg (28.0-33.3); Mean Corpuscular Volume 90.4 fL (83.0-100.0); Mean Platelet Volume 9.9 fL (9.4-12.4); Monocytes # 0.3 K/mcL (0.0-1.3); Monocytes % 9.7 %; Neutrophils # 2.2 K/mcL (1.6-8.9); Red Blood Count 2.72 M/mcL (3.82-4.97); Red Cell Distribution Width 13.2 % (11.5-14.5); Segmented Neutrophils % 63.7 %; White Blood Count 3.5 K/mcL (4.3-11.1)
[2022-01-24 05:42] LABS: Platelet Count 89 K/mcL (140-400)
[2022-01-24 05:54] LABS: Calcium 8.8 mg/dL (8.6-10.3)
[2022-01-24] MEDS: polyethylene glycoL 3350 17 GM POWD.PACK PO SCH (07:47)
[2022-01-24] MEDS: Lactulose Oral Soln 20 GM/30 ML UDC PO SCH ×4 (07:47→20:38)
[2022-01-24] MEDS: Loratadine 10 MG TABLET PO SCH (07:47)
[2022-01-24] MEDS: Gabapentin 100 MG CAPSULE PO SCH ×3 (07:47→20:38)
[2022-01-24] MEDS: Insulin LISPRO 300 UNITS/3 ML VIAL SUBQ SCH ×5 (07:55→20:37)
[2022-01-24] MEDS ORDERED: Lactulose Oral Soln 20 GM/30 ML UDC PO SCH (12:45)
[2022-01-24] MEDS: Sennosides/Docusate Sodium TABLET PO SCH (20:38)
[2022-01-24] MEDS: Insulin DETEMIR 100 UNIT/ML X5UNITS SUBQ SCH (20:38)
[2022-01-25] MEDS ORDERED: *HR* Dextrose 50 % in Water (Syg) 50 ML SYRINGE IVP PRN (00:18)
[2022-01-25] MEDS ORDERED: Dextrose 4 GM Chewable Tablets PO PRN ×2 (00:18)
[2022-01-25] MEDS ORDERED: D5% in Water 1,000 ML IVC PRN (00:18)
[2022-01-25] MEDS ORDERED: Insulin LISPRO 300 UNITS/3 ML VIAL SUBQ SCH (00:30)
[2022-01-25 02:53] LABS: Calcium 8.8 mg/dL (8.6-10.3)
[2022-01-25 02:55] LABS: % Iron Saturation 62 % (15-50); Iron 119 mcg/dL (50-170); Transferrin 137 mg/dL (203-362)
[2022-01-25 03:01] LABS: Ferritin 605 ng/mL (10-120)
[2022-01-25 03:07] LABS: Folate 15.9 ng/mL (3.0-16.0); Immature Granulocytes % 0.3 % (0-4)
[2022-01-25 03:09] LABS: Eosinophils # 0.2 K/mcL (0.0-0.6); Eosinophils % 4.4 %; Hematocrit 24.5 % (35.3-44.9); Hemoglobin 8.7 g/dL (11.5-15.4); Immature Platelets 2.7 % (1.1-6.1); Lymphocytes # 0.6 K/mcL (0.6-4.6); Lymphocytes % 14.4 %; Mean Corpuscular HGB Conc 35.5 g/dL (31.6-35.5); Mean Corpuscular Hemoglobin 32.5 pg (28.0-33.3); Mean Corpuscular Volume 91.4 fL (83.0-100.0); Mean Platelet Volume 10.3 fL (9.4-12.4); Monocytes # 0.3 K/mcL (0.0-1.3); Monocytes % 8.5 %; Neutrophils # 2.8 K/mcL (1.6-8.9); Red Blood Count 2.68 M/mcL (3.82-4.97); Red Cell Distribution Width 13.2 % (11.5-14.5); Segmented Neutrophils % 71.4 %; White Blood Count 3.9 K/mcL (4.3-11.1)
[2022-01-25 03:17] LABS: Platelet Count 87 K/mcL (140-400)
[2022-01-25 07:25] VITALS: O2SAT 100
[2022-01-25] MEDS: Insulin LISPRO 300 UNITS/3 ML VIAL SUBQ SCH ×4 (07:58→12:19)
[2022-01-25] MEDS: polyethylene glycoL 3350 17 GM POWD.PACK PO SCH (08:00)
[2022-01-25] MEDS: Loratadine 10 MG TABLET PO SCH (08:00)
[2022-01-25] MEDS: Gabapentin 100 MG CAPSULE PO SCH (08:00)
[2022-01-25] MEDS: Sennosides/Docusate Sodium TABLET PO SCH (08:01)
[2022-01-25] MEDS: Insulin DETEMIR 100 UNIT/ML X5UNITS SUBQ SCH (08:20)
[2022-01-25] MEDS ORDERED: Lactulose Oral Soln 20 GM/30 ML UDC PO SCH (09:00)
[2022-01-25 11:18] VITALS: BP 160/84; PULSE 83; TEMP 97.5
[2022-01-25] MEDS ORDERED: Insulin Human Regular 10 UNIT in 0.9 % Sodium Chloride 10 ML IV ONE (11:54)
== END 2022-01-25 14:23 | disposition home or self-care (01) | DRG 442 ==
LOC: 2ANU 15:42 → EMEROOARM 15:42 → SUATTDRO 17:51 → 2ANU 18:40
PROVIDERS: ADMIT Internal Medicine; ATTEND Internal Medicine